=== PATIENT | female | born 1935 | race American Indian/Alaskan Native ===

== ENCOUNTER 2017-12-13 13:30 | Emergency (ER) | payer MEDICARE, OTHER, SELFPAY ==
[2017-12-13 13:48] VITALS: BP 189/87; PULSE 86; RESP 20; TEMP 37; O2SAT 98; BMI 22.1
--- NOTE | 2017-12-13 15:01 | ED_ITS ---
HPI - Abdominal Pain <ASTRID Merlos - Last Filed: 12/13/17 21:31> General Chief Complaint: Abdominal Pain Stated Complaint: ABNORMAL LAB RESULTS, DR SENT OVER Time Seen by Provider: 12/13/17 13:37 History of Present Illness HPI narrative: 82-year-old female here for complaint of having a periodic stools with blood over the past few weeks. She was seen in the emergency room and her primary care provider for the symptoms in the past couple of weeks. Patient reports that she had 2 episodes of diarrhea today that had blood in. He reports having generalized abdominal pain. She denies being on any blood thinners. No trauma to the area. No nausea or vomiting. She states that she was sent here by her primary care provider for further evaluation due to lab values. She states that it is bright red blood. She denies any other concerns or complaints at this time. She is ambulatory into the emergency room. Related Data Home Medications Medication Instructions Recorded Confirmed CALCIUM CARBONATE 500 mg PO Q DAY #0 02/24/11 12/13/17 MULTIVITAMIN (#MULTIPLE VITAMINS) 1 cap PO 4-6XD #0 02/24/11 12/13/17 ACETAMINOPHEN 650 mg PO Q4HP #0 08/17/12 12/13/17 hyoscyamine sulfate 0.125 mg PO/SL Q2H PRN 12/13/17 12/13/17 tramadol 1 tab PO TIDP PRN 12/13/17 12/13/17 Previous Rx's Medication Instructions Recorded lisinopril [Zestril] 40 mg PO QDAY #90 tab 04/17/17 lorazepam [Ativan] 0.5 mg PO SEE INSTRUCTIONS #90 tab 07/05/17 triamcinolone acetonide 0 gm TOPICAL SEE INSTRUCTIONS #80 11/13/17 gm chlordiazepoxide-clidinium 5 1 cap PO QDAY #30 cap 12/05/17 mg-2.5 mg capsule Allergies Allergy/AdvReac Type Severity Reaction Status Date / Time levofloxacin [From LEVAQUIN] AdvReac Unknown dizziness, Verified 12/13/17 13:52 not sure if related or not...08/30/16 Review of Systems <ASTRID Merlos - Last Filed: 12/13/17 21:31> Constitutional Denies chills, Denies fever(s), Denies lethargy and Denies weakness Eyes Denies change in vision, Denies eye discharge, Denies irritation and Denies loss of vision Cardiovascular Denies chest pain, Denies irregular heart rhythm, Denies lightheadedness, Denies palpitations, Denies dyspnea, Denies dyspnea on exertion and Denies orthopnea Respiratory Denies cough, Denies dyspnea, Denies dyspnea on exertion and Denies wheezing Gastrointestinal Gastrointestinal: Reports abdominal pain Comments: Blood in stool Genitourinary Denies hematuria, Denies flank pain, Denies urinary incontinence and Denies urinary urgency Integumentary/Breasts Denies pruritus, Denies erythema, Denies rash and Denies wounds Neurologic Denies confusion, Denies loss of vision and Denies weakness Psychiatric Denies anxiety, Denies confusion, Denies depression, Denies homicidal ideation and Denies suicidal ideation Endocrine Denies palpitations Allergic/Immunologic Denies wheezing Exam <ASTRID Merlos - Last Filed: 12/13/17 21:31> Initial Vital Signs Initial Vital Signs: Vital Signs Temperature 98.6 F 12/13/17 13:48 Pulse Rate 86 12/13/17 13:48 Respiratory Rate 20 12/13/17 13:48 Blood Pressure 189/87 H 12/13/17 13:48 Pulse Oximetry 98 12/13/17 13:48 Const General: cooperative and well developed Nutritional Appearance: well nourished Orientation: alert, awake, oriented x3 and not confused [facility] Mouth: oral mucosae normal, oropharynx normal and moist mucous membranes Eyes Conjunctivae: conjunctivae normal Sclera: sclerae normal Pupils: PERRL EOM: EOM intact bilaterally Resp Effort & Inspection: normal respiratory effort, able to speak in complete sentences, no respiratory distress and no use of accessory muscles Auscultation: clear to auscultation bilaterally, no rales, no rhonchi and no wheezes Cardio Rate: regular rate Rhythm: regular rhythm Heart Sounds: no click, no gallops, no murmurs and no rubs GI Inspection: non-distended Palpation: soft, no hepatosplenomegaly, No guarding, No pulsatile mass and No tender Auscultation: normal bowel sounds Other: Generalized tenderness on palpation. No pain and point tenderness. Rectal exam was unremarkable. No hemorrhoids seen. Negative Hemoccult <Jennie Saxena MD - Last Filed: 12/14/17 07:34> Initial Vital Signs Initial Vital Signs: Vital Signs Temperature 98.6 F 12/13/17 13:48 Pulse Rate 86 12/13/17 13:48 Respiratory Rate 20 12/13/17 13:48 Blood Pressure 189/87 H 12/13/17 13:48 Pulse Oximetry 98 12/13/17 13:48 Course <ASTRID Merlos - Last Filed: 12/13/17 21:31> Orders Ordered: ED Orders 12/13/17 15:01 CT abdomen pelvis w con Stat 12/13/17 15:10 Complete Blood Count AUTO DIFF Stat Comprehensive Metabolic Panel Stat Lipase Stat Prothrombin Time INR Stat Vital Signs - 8 hr 12/13/17 13:48 12/13/17 16:40 12/13/17 16:50 Temperature 98.6 F Pulse Rate 86 81 74 Respiratory Rate 20 18 12 Blood Pressure 189/87 H Blood Pressure [Right Arm] 179/86 H 163/95 H Pulse Oximetry 98 100 100 <Jennie Saxena MD - Last Filed: 12/14/17 07:34> Orders Ordered: ED Orders 12/13/17 15:01 CT abdomen pelvis w con Stat 12/13/17 15:10 Complete Blood Count AUTO DIFF Stat Comprehensive Metabolic Panel Stat Lipase Stat Prothrombin Time INR Stat Vital Signs - 8 hr 12/13/17 13:48 12/13/17 16:40 12/13/17 16:50 Temperature 98.6 F Pulse Rate 86 81 74 Respiratory Rate 20 18 12 Blood Pressure 189/87 H Blood Pressure [Right Arm] 179/86 H 163/95 H Pulse Oximetry 98 100 100 MDM - Abdominal Pain <ASTRID Merlos - Last Filed: 12/13/17 21:31> Lab Data Result diagrams: 12/13/17 15:10 12/13/17 15:10 Lab Results 12/13/17 12/13/17 12/13/17 Range/Units 15:10 15:10 15:10 WBC 3.9 L (4.5-11.0) X10^3/uL RBC 4.98 (4.0-5.2) X10^6/uL Hgb 14.5 (12.0-16.0) g/dL Hct 42.5 (36-46) % MCV 85.3 (80-100) fL MCH 29.1 (26-34) PG MCHC 34.1 (30-36) % RDW 14.1 (11.6-14.8) % Plt Count 244 (150-400) X10^3/uL Neut % (Auto) 64.8 (50-75) % Lymph % (Auto) 16.8 L (25-40) % Dane % (Auto) 15.8 H (3-14) % Eos % (Auto) 0.8 L (2-4) % Baso % (Auto) 1.8 (0-2) % Neut # (Auto) 2500 L (7063-0788) /uL PT 11.1 (10.1-12.7) SECONDS INR 1.0 (0.9-1.3) Sodium 133 L (137-145) mmol/L Potassium 3.9 (3.4-5.1) mmol/L Chloride 96.0 L (98-107) mmol/L Carbon Dioxide 24.0 (22-32) mmol/L BUN 9.0 (7-17) mg/dL Creatinine 0.50 L (0.52-1.04) mg/dL Estimated GFR > 60.0 (>60) mL/min BUN/Creatinine Ratio 18.0 (6-22) Glucose 100 (80-110) mg/dL Calcium 9.6 (8.4-10.2) mg/dL Total Bilirubin 0.7 (0.2-1.3) mg/dL AST 21 (14-36) IU/L ALT 14 (9-52) IU/L Alkaline Phosphatase 92 (38-126) U/L Total Protein 8.2 (6.3-8.2) g/dL Albumin 4.5 (3.5-5.0) g/dL Globulin 3.7 (1.7-4.1) g/dL Albumin/Globulin Ratio 1.2 (1.0-2.8) Lipase 132 (23-300) U/L Imaging Data CT scan - abdomen: Radiologist's impression: PROCEDURE: CT ABDOMEN PELVIS W CON INDICATIONS: Rectal bleeding and generalized abdominal pain TECHNIQUE: After the administration of intravenous contrast, 5 mm thick sections acquired from the diaphragm to the symphysis. 5 mm coronal and sagittal reformats were acquired. For radiation dose reduction, the following was used: automated exposure control, adjustment of mA and/or kV according to patient size. COMPARISON: [facility], CT, ABDOMEN/PELVIS WITH CONTRAST, 05/08/2016, 9: 32. FINDINGS: Image quality: Excellent. ABDOMEN: Lung bases: Lung bases are clear. Heart size is normal. Solid organs: Liver is normal in size and enhancement. Gallbladder appears normal, partially contracted. Biliary system is non dilated. Pancreas enhances normally. Spleen is normal in size and enhancement. No adrenal nodules. Kidneys demonstrate normal size and enhancement, without hydronephrosis. Peritoneum and bowel: Bowel loops demonstrate normal wall thickness and caliber. No free fluid or air. Nodes and vessels: No retroperitoneal or mesenteric adenopathy by size criteria. Aorta and inferior vena cava are normal in size. Miscellaneous: No ventral hernias. PELVIS: Genitourinary: Bladder wall thickness is normal. Calcified uterine fibroids are noted within the relatively atrophic uterus. No adnexal cystic or solid mass is identified. Miscellaneous: No inguinal hernias or adenopathy. There is sigmoid and descending colon diverticulosis but no acute diverticulitis is found. Bones: No suspicious bony lesions. No vertebral body compression fractures. IMPRESSION: Source of rectal bleeding is not found. Diverticulosis involves the descending and sigmoid colon without acute diverticulitis. Several scattered uterine fibroids, partially calcified, are incidentally noted. No adenopathy or inflammatory changes are seen. Dictated by: Del Coyne M.D. on 12/13/2017 at 15:54 Approved by: Del Coyne M.D. on 12/13/2017 at 15:58 MDM Narrative Medical decision making narrative: CBC Chem panel lipase were obtained were unremarkable. PT INR was normal. POC urine dip was negative. CT the abdomen was obtained was negative for any acute findings. Rectal exam or was negative for Hemoccult blood no lex blood was seen. I discussed case with Dr. Major who was on-call for Dr. Gomez and their office will follow up with her in the next few days with discussion of colonoscopy for further evaluation. Patient's blood pressure was elevated today she was reminded to take her blood pressure medicine as prescribed. Patient call the office tomorrow to schedule follow-up appointment. For any worsening symptoms return to the emergency room. <Jennie Saxena MD - Last Filed: 12/14/17 07:34> Lab Data Lab Results 12/13/17 12/13/1712/13/18 Range/Units 15:10 15:10 15:10 WBC 3.9 L (4.5-11.0) X10^3/uL RBC 4.98 (4.0-5.2) X10^6/uL Hgb 14.5 (12.0-16.0) g/dL Hct 42.5 (36-46) % MCV 85.3 (80-100) fL MCH 29.1 (26-34) PG MCHC 34.1 (30-36) % RDW 14.1 (11.6-14.8) % Plt Count 244 (150-400) X10^3/uL Neut % (Auto) 64.8 (50-75) % Lymph % (Auto) 16.8 L (25-40) % Dane % (Auto) 15.8 H (3-14) % Eos % (Auto) 0.8 L (2-4) % Baso % (Auto) 1.8 (0-2) % Neut # (Auto) 2500 L (0204-7190) /uL PT 11.1 (10.1-12.7) SECONDS INR 1.0 (0.9-1.3) Sodium 133 L (137-145) mmol/L Potassium 3.9 (3.4-5.1) mmol/L Chloride 96.0 L (98-107) mmol/L Carbon Dioxide 24.0 (22-32) mmol/L BUN 9.0 (7-17) mg/dL Creatinine 0.50 L (0.52-1.04) mg/dL Estimated GFR > 60.0 (>60) mL/min BUN/Creatinine Ratio 18.0 (6-22) Glucose 100 (80-110) mg/dL Calcium 9.6 (8.4-10.2) mg/dL Total Bilirubin 0.7 (0.2-1.3) mg/dL AST 21 (14-36) IU/L ALT 14 (9-52) IU/L Alkaline Phosphatase 92 (38-126) U/L Total Protein 8.2 (6.3-8.2) g/dL Albumin 4.5 (3.5-5.0) g/dL Globulin 3.7 (1.7-4.1) g/dL Albumin/Globulin Ratio 1.2 (1.0-2.8) Lipase 132 (23-300) U/L Discharge Plan Departure Patient Disposition: Home, Self-Care Clinical Impression: Blood in stool Discharge Date/Time: 12/13/17 17:09 Interventions: ED Discharge Assessment Last Done: 12/13/17 17:08 Instructions: DI for Rectal Bleeding Activity Restrictions/Additional Instructions: Laboratory results today were unremarkable. CT of the abdomen was obtained and was negative for any acute findings. Blood pressure was elevated today make sure you are taking your blood pressure medications as prescribed. Call Dr. Gomez is office tomorrow to schedule follow-up appointment here in the next few days for re-evaluation. Recommend obtaining colonoscopy for further evaluation patient of with rectal bleeding. For any worsening symptoms return to the emergency room. Prescriptions: No Action CALCIUM CARBONATE 500 mg PO Q DAY Qty: 0 RF: 0 MULTIVITAMIN (#MULTIPLE VITAMINS) bottle 1 cap PO 4-6XD Qty: 0 RF: 0 ACETAMINOPHEN 650 mg PO Q4HP Qty: 0 RF: 0 lisinopril [Zestril] 40 MG tablet 40 mg PO QDAY Qty: 90 RF: 3 lorazepam [Ativan] 0.5 MG tablet 0.5 mg PO SEE INSTRUCTIONS Qty: 90 RF: 0 triamcinolone acetonide 0.1 % cream Topical SEE INSTRUCTIONS Qty: 80 RF: 0 chlordiazepoxide-clidinium [Librax (with clidinium)] 5-2.5 mg capsule 1 cap PO QDAY Qty: 30 RF: 3 hyoscyamine sulfate 0.125 MG tablet 0.125 mg PO/SL Q2H PRN (Reason: Abdominal Discomfort) RF: 0 tramadol 50 MG tablet 1 tab PO TIDP PRN (Reason: Pain, Severe) RF: 0 Referrals: Brain Gomez MD [Primary Care Provider] - <Jennie Saxena MD - Last Filed: 12/14/17 07:34> Sign Out Provider Sign Out Attestation: I attest to the documentation recorded. I was the attending of record and available in the ED throught course. I agree with assessment and plan.
[2017-12-13 15:18] LABS: Add Manual Diff / Slide Review NO; Basophils Percent Auto 1.8 % (0-2); Eosinophils Percent Auto 0.8 % (2-4); Hematocrit 42.5 % (36-46); Hemoglobin 14.5 g/dL (12.0-16.0); Lymphocytes Percent Auto 16.8 % (25-40); Mean Corpuscular HGB Conc 34.1 % (30-36); Mean Corpuscular Hemoglobin 29.1 PG (26-34); Mean Corpuscular Volume 85.3 fL (80-100); Monocytes Percent Auto 15.8 % (3-14); Neutrophils Absolute Auto 2500 /uL (3000-5900); Neutrophils Percent Auto 64.8 % (50-75); Platelet Count 244 X10^3/uL (150-400); Red Blood Cell Count 4.98 X10^6/uL (4.0-5.2); Red Cell Distribution Width 14.1 % (11.6-14.8); White Blood Cell Count 3.9 X10^3/uL (4.5-11.0)
[2017-12-13 15:24] LABS: Prothrombin Time 11.1 SECONDS (10.1-12.7)
[2017-12-13 15:31] LABS: Alanine Aminotransferase 14 IU/L (9-52); Albumin 4.5 g/dL (3.5-5.0); Albumin Globulin Ratio 1.2 (1.0-2.8); Alkaline Phosphatase 92 U/L (38-126); Aspartate Aminotransferase 21 IU/L (14-36); Bilirubin Total 0.7 mg/dL (0.2-1.3); Calcium 9.6 mg/dL (8.4-10.2); Estimated Glomerular Filt Rate > 60.0 mL/min (>60); Globulin 3.7 g/dL (1.7-4.1); Glucose 100 mg/dL (80-110); HEMOLYSIS < 15 (0-50); Lipase 132 U/L (23-300); Potassium 3.9 mmol/L (3.4-5.1); Sodium 133 mmol/L (137-145); Total Protein 8.2 g/dL (6.3-8.2)
[2017-12-13 16:40] VITALS: BP 179/86; PULSE 81; RESP 18; O2SAT 100
[2017-12-13 16:50] VITALS: BP 163/95; PULSE 74; RESP 12; O2SAT 100
== END 2017-12-13 17:09 | disposition home or self-care (01) ==
PROVIDERS: Emergency Provider Nurse Practitioner Family; PCP Internal Medicine
DX: K92.1 Melena (principal)
CPT/HCPCS: 36591; 74177; 80053; 81003; 83690; 85025; 85610; 99283; 99284; Q9967

== ENCOUNTER → 2017-12-19 09:15 | Outpatient (CLI) | payer MEDICARE, OTHER, SELFPAY ==
[2017-12-19 10:00] LABS: Hematocrit 41.8 % (36-46); Hemoglobin 14.3 g/dL (12.0-16.0)
== END ==
PROVIDERS: PCP Internal Medicine; Visit Provider Internal Medicine
DX: K92.1 Melena (principal)
CPT/HCPCS: 36415; 85014; 85018

== ENCOUNTER 2017-12-28 11:34 | Day surgery (SDC) | payer MEDICARE, OTHER, SELFPAY ==
[2017-12-28] VITALS (7 sets, daily range): BP systolic 125–167; BP diastolic 73–88; PULSE 76–81; RESP 15–20; TEMP 36.2–37.2; O2SAT 97–100; BMI 21.7
--- NOTE | 2017-12-28 | PATH_ITS ---
[facility] Accession Number: [id number] . 01 Material submitted: . CECAL POLYP . 02 Diagnosis: Cecal Polyp: Tubular adenoma. MRV/12/29/2017 . 02 Electronically signed: . Cuba Reyes MD, PhD, Pathologist NPI- [id number] . 01 Gross description: . Received in one formalin-filled container, labeled with the patient's name, labeled cecal polyp, are two 0.2-0.3 cm portions of tissue, entirely submitted in one cassette. ([id number]) /FRR . 02 Pathologist provided ICD-10: D12.0 . 02 CPT . 502976 Performed at: 01 [facility] [place] [address] [id number] MD Pawel Sifuentes MD Phone: [phone] Performed at: 02 [facility] [place] [address] [place], [place] [id number] MD Иван Kruger MD Phone: [phone]
[2017-12-28] MEDS: SODIUM CHLORIDE 0.9% 1,000 ML 200 ML IV (12:40)
--- NOTE | 2017-12-28 12:45 | P.HP_ITS ---
History of Present Illness Date Patient Seen: 12/28/17 Time Patient Seen: 12:40 Chief complaint: colonoscopy [id number] Narrative: 82-year-old female who presented with recent history of bright red blood per rectum, especially with bowel function. She has been having some mild pelvic pain prior to bowel function which is subsequently relieved when she does move her bowels. She reports no change in bowel habits otherwise. No significant constipation or diarrhea. No melena. She has not had similar symptoms in the past. Denies any nausea or vomiting. No abdominal pain elsewhere. No recent change in appetite or loss of weight. Denies fever or chills. Patient History Medical History Anxiety (Acute) Hypertension (Acute) Surgical History H/O colonoscopy (Resolved) History of appendectomy (Resolved) History of foot surgery (Resolved) Family & Social History Family History: Reviewed 12/28/17 by Juan Nunn MD Social History: household members friend(s) Tobacco & Substance use: Smoking Status Never smoker alcohol intake frequency 0-2 drinks per day Substance Use Type does not use Meds Home Medications Medication Instructions Recorded Confirmed Type CALCIUM CARBONATE 500 mg PO Q DAY #0 02/24/11 12/19/17 History MULTIVITAMIN (#MULTIPLE VITAMINS) 1 cap PO 4-6XD #0 02/24/11 12/19/17 History ACETAMINOPHEN 650 mg PO Q4HP #0 08/17/12 12/19/17 History lisinopril [Zestril] 40 mg PO QDAY #90 tab 04/17/17 12/19/17 Rx lorazepam [Ativan] 0.5 mg PO SEE INSTRUCTIONS #90 tab 07/05/17 12/19/17 Rx triamcinolone acetonide 0 gm TOPICAL SEE INSTRUCTIONS #80 11/13/17 12/19/17 Rx gm chlordiazepoxide-clidinium 5 1 cap PO QDAY #30 cap 12/05/17 12/19/17 Rx mg-2.5 mg capsule hyoscyamine sulfate 0.125 mg PO/SL Q2H PRN 12/13/17 12/19/17 History Allergies Allergy/AdvReac Type Severity Reaction Status Date / Time levofloxacin [From LEVAQUIN] AdvReac Unknown dizziness, Verified 12/19/17 08:54 not sure if related or not...08/30/16 Review of Systems Review of Systems All systems reviewed & are unremarkable except as noted in HPI and below Exam Vital Signs (past 8 hours): Vital Signs - 8 hr 3 12/28/17 12:21 Temperature 99.0 F Pulse Rate 80 Respiratory Rate 20 Blood Pressure 167/88 H Pulse Oximetry 100 Pulse Oximetry 100 Oxygen Delivery Method Room Air Narrative Exam Narrative: Thin elderly female lying comfortably in the gurney in no acute distress. Alert oriented x3. Sclera nonicteric Regular rate and rhythm Abdomen soft, nondistended, nontender, no masses Extremities show no clubbing, cyanosis, or edema Assessment & Plan (1) Rectal bleeding: Problem details: 82-year-old female with recent rectal bleeding of unclear etiology. Her last colonoscopy was 12 years ago. She is recommended to undergo colorectal examination with colonoscopy currently. Technical details of the procedure were discussed. Risks, benefits, alternatives were explained. Risks including but not limited to sedation, aspiration, bleeding, pain, missed lesion, incomplete examination, need for further radiographic studies, colonic perforation, need for major abdominal surgery, and all attendant risks of major surgery were discussed at length. All questions were answered to her satisfaction, and she voiced understanding. Consent was placed on the chart. We will proceed as above. Current visit: Yes Status: Acute
--- NOTE | 2017-12-28 12:45 | PM.PREOP ---
Pre-operative Note Interval Note Pre-op Check: History & Physical Reviewed by Physician, Exam Performed and History & Physical exam performed today H&P completed within 30 days and has changed as indicated here:: History physical examination performed today. Patient will proceed with colonoscopy as planned. ASA Class (for procedural sedation): II
[2017-12-28] MEDS: fentaNYL 250 MCG/5 ML INJ IV (13:17)
--- NOTE | 2017-12-28 13:17 | PM.OP.ENDO ---
Operative Date/Time/Diagnoses - Date of procedure: 12/28/17 Time of procedure: 13:17 Pre-op diagnosis: Rectal bleeding Post-op diagnosis: same Procedure & Clinicians Study performed: 1. Colonoscopy with cold forceps polypectomy 2. Sedation per surgeon Same procedure as scheduled: Yes Indications: 82-year-old female recently presenting with bright red blood per rectum after bowel function. She was recommended to undergo colonoscopy for her symptoms. Surgeon: Juan Nunn Procedure Notes SCOAP/Timeout: Yes Procedure in detail: After obtaining informed consent, the patient was brought to the GI suite and placed in the left lateral decubitus position on the examination table. After placement of appropriate monitors, the patient was given incremental doses of Versed and Fentanyl until an appropriate level of sedation was achieved. A time out was held per SCOAP protocol. A digital rectal examination was performed and did not reveal any masses or obstructing lesions. The colonoscope was gently passed into the patient's anus and the entire colon navigated to the level of the cecum with minimal difficulty. Once in the cecum, the scope was withdrawn being sure to go before and beyond all mucosal folds and prominences and get an excellent examination. The findings are noted above. At the level of the rectal vault, the scope was retroflexed and the internal anal canal was examined. The scope was straightened and air aspirated from the colon. The instrument was removed from the patient's body and the procedure was concluded. The patient was allowed to awaken from sedation without difficulty and taken to the post-anesthesia care unit in good condition. Scope withdrawal time: 7:45 min Sedation minutes: 24 Findings: diverticulosis (Throughout the entire colon) and polyp (Cecum) Specimen(s): other (Cecal polyp) Complications: none Recommendations: High fiber diet, Will call with biopsy results and Other recommendation (No further colonoscopy is indicated) Plan for aftercare: 1. Bleeding likely secondary to diverticula but no active bleeding currently 2. No significant hemorrhoid disease so no treatment for such is indicated 3. Small benign polyp removed which does not warrant follow-up endoscopy 4. No further colonoscopies are indicated in the absence of any new significant symptoms. 5. Discharged home today and follow up with primary physician as scheduled Follow up: as needed Disposition: PACU
[2017-12-28] MEDS: MIDAZOLAM 5 MG/5 ML VIAL IV (13:18)
== END 2017-12-28 14:16 | disposition home or self-care (01) ==
PROVIDERS: PCP Internal Medicine; Visit Provider Surgery
PROC: 0DJD8ZZ Inspection of Lower Intestinal Tract, Via Natural or Artificial Opening Endoscopic (ICD-10-PCS; CPT 45378; principal; 2017-12-28 13:00)
DX: K92.1 Melena (principal); K62.5 Hemorrhage of anus and rectum; K57.30 Diverticulosis of large intestine without perforation or abscess without bleeding; D12.0 Benign neoplasm of cecum; I10 Essential (primary) hypertension; F41.9 Anxiety disorder, unspecified
CPT/HCPCS: 45380; 88305; 99152; 99153; J2250; J3010

== ENCOUNTER 2018-03-10 14:30 | Emergency (ER) | payer MEDICARE, OTHER, SELFPAY ==
[2018-03-10 14:50] VITALS: BP 167/87; PULSE 81; RESP 16; TEMP 36.5; O2SAT 99; BMI 22.1
--- NOTE | 2018-03-10 16:35 | DI.RAD.S_ITS ---
PROCEDURE: XR KUB INDICATIONS: constipated? TECHNIQUE: One view of the abdomen acquired. COMPARISON: [facility], CT, CT ABDOMEN PELVIS W CON, 12/13/2017, 15:33. FINDINGS: Surgical changes and devices: None. Bowel: Bowel gas pattern is normal. Soft tissues: No suspicious abdominal calcifications. Visualized solid organ contours appear normal in size. Bones: No suspicious bony lesions. IMPRESSION: No acute process. Dictated by: Anthony Altman M.D. on 03/10/2018 at 16:56 Approved by: Anthony Altman M.D. on 03/10/2018 at 16:56
[2018-03-10 17:24] LABS: Hematocrit 39.2 % (36-46); Hemoglobin 13.3 g/dL (12.0-16.0); Mean Corpuscular Hemoglobin 28.9 PG (26-34); Mean Corpuscular Volume 85.2 fL (80-100); Platelet Count 288 X10^3/uL (150-400); Red Cell Distribution Width 14.4 % (11.6-14.8); White Blood Cell Count 5.2 X10^3/uL (4.5-11.0)
[2018-03-10 17:45] LABS: INR 1.1 (0.9-1.3); Prothrombin Time 11.5 SECONDS (10.1-12.7)
[2018-03-10 17:47] LABS: PTT Partial Thromboplastin Tim 31 SECONDS (26.4-36.2)
[2018-03-10 17:48] LABS: Lipase 77 U/L (23-300)
[2018-03-10 17:49] LABS: Alanine Aminotransferase 15 IU/L (9-52); Albumin 4.3 g/dL (3.5-5.0); Albumin Globulin Ratio 1.2 (1.0-2.8); Alkaline Phosphatase 81 U/L (38-126); Aspartate Aminotransferase 23 IU/L (14-36); Bilirubin Total 0.7 mg/dL (0.2-1.3); Blood Urea Nitrogen 8 mg/dL (7-17); Calcium 9.7 mg/dL (8.4-10.2); Carbon Dioxide 26 mmol/L (22-32); Chloride 94 mmol/L (98-107); Estimated Glomerular Filt Rate > 60.0 mL/min (>60); Globulin 3.7 g/dL (1.7-4.1); Glucose 97 mg/dL (80-110); HEMOLYSIS 30 (0-50); Potassium 4.4 mmol/L (3.4-5.1); Sodium 130 mmol/L (137-145)
--- NOTE | 2018-03-10 17:56 | ED.ABDPAIN ---
HPI - Abdominal Pain General Chief Complaint: Abdominal Pain Stated Complaint: BAD CRAMPS STOMACH AREA History of Present Illness HPI narrative: HPI 82-year-old female with IBS and diverticulitis presents for evaluation of 3 days of crampy abdominal discomfort and minimal stooling that is generally consistent with her long-standing pattern of IBS but refractory to her hyoscyamine. Patient denies dysuria, continues to pass flatus, had one bowel movement while in the emergency department, no significant improvement in symptoms. M/S/F/SocHx notable for: please see HPI; remainder reviewed with patient and in chart. ROS: Negative constitutional, eye, cardiovascular, pulmonary, GI, , MSK, skin, neurologic, psychiatric, endocrine unless noted in the HPI. Exam Gen: Pleasant, non-toxic appearing, resting comfortably. HEENT: NC, AT, PEERL, EOMI. Resp: Clear to auscultation bilaterally, normal work of breathing, no accessory muscle usage. Card: Regular rate and rhythm with no murmurs, rubs, or gallops, extremities warm and well perfused. GI: mild to moderate left lower quadrant tenderness to palpation, remainder of abdomen nontender to palpation throughout all quadrants, no focal tenderness at McBurney's point, negative Dueñas's sign, non-distended, no rebound or guarding. : No suprapubic tenderness to palpation. MSK: No visible deformities, strength and tone without visually appreciable deficit. Skin: Normal color with no visible lesions. Neuro: AO x 3, no facial asymmetry, vision and hearing WNL. Psych: Mood and affect appropriate. Labs / Imaging: WBC 5.2, hemoglobin 13.3 sodium 130, potassium 4.4, creatinine 0.50, total bilirubin 0.7, AST 23, ALT 15, ALP 81, lipase 77 KUB: no acute process. CT abdomen pelvis: pending UA - pending. MDM Previous chart, nursing note, labs, imaging, and vitals reviewed. A: 82-year-old female with IBS and diverticulitis presents for evaluation of 3 days of crampy abdominal discomfort and minimal stooling that is generally consistent with her long-standing pattern of IBS but refractory to her hyoscyamine. DDx: constipation, obstipation, IBS, diverticulitis, ureterolithiasis, pyelonephritis. Evaluation: KUB, CBC, CMP, lipase without clear pathology, CT abdomen and pelvis ordered given the left lower quadrant tenderness to palpation. UA pending. Patient care transferred to Dr. Christie pending completion of care. Impression: abdominal pain/cramping (please reference below for remainder of encounter information) Related Data Home Medications Medication Instructions Recorded Confirmed CALCIUM CARBONATE 500 mg PO Q DAY #0 02/24/11 02/02/18 MULTIVITAMIN (#MULTIPLE VITAMINS) 1 cap PO 4-6XD #0 02/24/11 02/02/18 ACETAMINOPHEN 650 mg PO Q4HP #0 08/17/12 02/02/18 hyoscyamine sulfate 0.125 mg PO/SL Q2H PRN 12/13/17 02/02/18 magnesium hydroxide 400 mg/5 mL 30 ml PO BEDTIME PRN 01/01/18 02/02/18 oral suspension Previous Rx's Medication Instructions Recorded lisinopril [Zestril] 40 mg PO QDAY #90 tab 04/17/17 triamcinolone acetonide 0 gm TOPICAL SEE INSTRUCTIONS #80 11/13/17 gm chlordiazepoxide-clidinium 5 1 cap PO QDAY #30 cap 12/05/17 mg-2.5 mg capsule lorazepam 0.5 mg tablet 0.5 mg PO .COMPLEX #90 tab 02/21/18 Allergies Allergy/AdvReac Type Severity Reaction Status Date / Time levofloxacin [From LEVAQUIN] AdvReac Unknown dizziness, Verified 02/02/18 13:29 not sure if related or not...08/30/16 [facility] Social History marital status: number of children: 1 () household members: friend(s) lives independently: Yes caregiver/support person: Yes (Step daughter) housing: apartment (4 plex) pets and animals: No education level: high school occupational status: other (Retired) 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 hortencia/congregational: Yazidism leisure activities: music, reading and other (crossword puzzels.) Smoking Status: Never smoker Tobacco: How many years used: 0 alcohol intake: current (1 glass of wine during a day. Occasional drinking.) substance use type: does not use Exam Initial Vital Signs Initial Vital Signs: Vital Signs Temperature 97.7 F 03/10/18 14:50 Pulse Rate 81 03/10/18 14:50 Respiratory Rate 16 03/10/18 14:50 Blood Pressure 167/87 H 03/10/18 14:50 Pulse Oximetry 99 03/10/18 14:50 Course Orders Ordered: ED Orders 03/10/18 14:10 CBC manual diff [Complete Blood Count MAN DIFF] Stat Comprehensive Metabolic Panel Stat Lipase Stat Partial Thromboplastin Time Stat Prothrombin Time INR Stat 03/10/18 14:55 Urinalysis and Microscopic Stat 03/10/18 16:35 XR KUB Stat EKG-12 Lead Stat 03/10/18 17:52 CT abdomen pelvis w con Stat 03/10/18 17:54 Urinalysis and Microscopic Stat Vital Signs - 8 hr 03/10/18 14:50 Temperature 97.7 F Pulse Rate 81 Respiratory Rate 16 Blood Pressure 167/87 H Pulse Oximetry 99 MDM - Abdominal Pain Lab Data Result diagrams: 03/10/18 14:10 03/10/18 14:10 Lab Results 03/10/18 03/10/18 03/10/18 Range/Units 14:10 14:10 14:10 WBC 5.2 (4.5-11.0) X10^3/uL RBC 4.60 (4.0-5.2) X10^6/uL Hgb 13.3 (12.0-16.0) g/dL Hct 39.2 (36-46) % MCV 85.2 (80-100) fL MCH 28.9 (26-34) PG MCHC 34.0 (30-36) % RDW 14.4 (11.6-14.8) % Plt Count 288 (150-400) X10^3/uL PT 11.5 (10.1-12.7) SECONDS INR 1.1 (0.9-1.3) APTT 31 (26.4-36.2) SECONDS Sodium 130 L (137-145) mmol/L Potassium 4.4 (3.4-5.1) mmol/L Chloride 94 L (98-107) mmol/L Carbon Dioxide 26 (22-32) mmol/L BUN 8 (7-17) mg/dL Creatinine 0.50 L (0.52-1.04) mg/dL Estimated GFR > 60.0 (>60) mL/min BUN/Creatinine Ratio 16.0 (6-22) Glucose 97 (80-110) mg/dL Calcium 9.7 (8.4-10.2) mg/dL Total Bilirubin 0.7 (0.2-1.3) mg/dL AST 23 (14-36) IU/L ALT 15 (9-52) IU/L Alkaline Phosphatase 81 (38-126) U/L Total Protein 8.0 (6.3-8.2) g/dL Albumin 4.3 (3.5-5.0) g/dL Globulin 3.7 (1.7-4.1) g/dL Albumin/Globulin Ratio 1.2 (1.0-2.8) Lipase (23-300) U/L 03/10/18 Range/Units 14:10 WBC (4.5-11.0) X10^3/uL RBC (4.0-5.2) X10^6/uL Hgb (12.0-16.0) g/dL Hct (36-46) % MCV (80-100) fL MCH (26-34) PG MCHC (30-36) % RDW (11.6-14.8) % Plt Count (150-400) X10^3/uL PT (10.1-12.7) SECONDS INR (0.9-1.3) APTT (26.4-36.2) SECONDS Sodium (137-145) mmol/L Potassium (3.4-5.1) mmol/L Chloride (98-107) mmol/L Carbon Dioxide (22-32) mmol/L BUN (7-17) mg/dL Creatinine (0.52-1.04) mg/dL Estimated GFR (>60) mL/min BUN/Creatinine Ratio (6-22) Glucose (80-110) mg/dL Calcium (8.4-10.2) mg/dL Total Bilirubin (0.2-1.3) mg/dL AST (14-36) IU/L ALT (9-52) IU/L Alkaline Phosphatase (38-126) U/L Total Protein (6.3-8.2) g/dL Albumin (3.5-5.0) g/dL Globulin (1.7-4.1) g/dL Albumin/Globulin Ratio (1.0-2.8) Lipase 77 (23-300) U/L Discharge Plan Departure Prescriptions: No Action CALCIUM CARBONATE 500 mg PO Q DAY Qty: 0 RF: 0 MULTIVITAMIN (#MULTIPLE VITAMINS) bottle 1 cap PO 4-6XD Qty: 0 RF: 0 ACETAMINOPHEN 650 mg PO Q4HP Qty: 0 RF: 0 lisinopril [Zestril] 40 MG tablet 40 mg PO QDAY Qty: 90 RF: 3 triamcinolone acetonide 0.1 % cream Topical SEE INSTRUCTIONS Qty: 80 RF: 0 lorazepam [Ativan] 0.5 mg tablet 0.5 mg PO .COMPLEX Qty: 90 RF: 0 magnesium hydroxide [Milk of Magnesia] 400 mg/5 mL suspension 30 ml PO BEDTIME PRNRF: 0 chlordiazepoxide-clidinium [Librax (with clidinium)] 5-2.5 mg capsule 1 cap PO QDAY Qty: 30 RF: 3 hyoscyamine sulfate 0.125 MG tablet 0.125 mg PO/SL Q2H PRN (Reason: Abdominal Discomfort) RF: 0
[2018-03-10] MEDS: AMOXICILLIN/CLAV 875/125 MG 1 TAB PO (19:15)
[2018-03-10 19:30] VITALS: BP 195/94; PULSE 82; RESP 14; O2SAT 98
--- NOTE | 2018-03-10 19:34 | PC.NURSE ---
MD aware of patients blood pressure. No new orders at this time. Patient reports that it is not unusual for her to have high blood pressure when taken at the doctors secondary to her anxiety. Patient is asymptomatic.
== END 2018-03-10 19:39 | disposition home or self-care (01) ==
PROVIDERS: Emergency Medicine; Emergency Provider Emergency Medicine; PCP Internal Medicine
DX: R10.9 Unspecified abdominal pain (principal)
CPT/HCPCS: 36591; 74018; 80053; 83690; 85025; 85610; 85730; 99283; 99285

== ENCOUNTER 2018-03-13 03:57 | Emergency (ER) | payer MEDICARE, OTHER, SELFPAY ==
[2018-03-13 04:03] VITALS: BP 178/85; PULSE 92; RESP 16; TEMP 36.9; O2SAT 100; BMI 21.4
--- NOTE | 2018-03-13 04:10 | DI.RAD.S_ITS ---
PROCEDURE: XR ACUTE ABDOMEN SERIES INDICATIONS: Abdominal pain TECHNIQUE: One view chest and two views of the abdomen were acquired. COMPARISON: [facility], CT, ABDOMEN/PELVIS WITH CONTRAST, 05/08/2016, 9:32. [facility], [place], ABDOMEN COMPLETE, 02/08/2017, 8:41. [facility], CT, CT ABDOMEN PELVIS W CON, 12/13/2017, 15:33. FINDINGS: Surgical changes and devices: None. Chest: Lungs are clear. Heart size is normal. No pleural effusions. No pneumoperitoneum. Abdomen: Moderate amount of stool seen throughout the colon. No suspicious calcifications. Visualized solid organ contours appear normal. Bones: No suspicious bony lesions. IMPRESSION: 1. Moderate fecal loading throughout the colon. Please correlate with clinical data. 2. No evidence of obstruction. Dictated by: Pilar Grimes MD, PhD on 03/13/2018 at 9:13 Approved by: Pilar Grimes MD, PhD on 03/13/2018 at 9:14
[2018-03-13 04:45] LABS: Add Manual Diff / Slide Review NO; Basophils Percent Auto 0.8 % (0-2); Eosinophils Percent Auto 0.7 % (2-4); Hematocrit 39.7 % (36-46); Hemoglobin 13.4 g/dL (12.0-16.0); Lymphocytes Percent Auto 11.6 % (25-40); Mean Corpuscular HGB Conc 33.7 % (30-36); Mean Corpuscular Hemoglobin 29.2 PG (26-34); Mean Corpuscular Volume 86.6 fL (80-100); Monocytes Percent Auto 15.4 % (3-14); Neutrophils Absolute Auto 6200 /uL (3000-5900); Neutrophils Percent Auto 71.5 % (50-75); Platelet Count 280 X10^3/uL (150-400); Red Blood Cell Count 4.58 X10^6/uL (4.0-5.2); Red Cell Distribution Width 14.4 % (11.6-14.8); White Blood Cell Count 8.7 X10^3/uL (4.5-11.0)
[2018-03-13 04:52] LABS: BUN Creatinine Ratio 13.3 (6-22); Blood Urea Nitrogen 8 mg/dL (7-17); Calcium 9.9 mg/dL (8.4-10.2); Carbon Dioxide 27 mmol/L (22-32); Chloride 95 mmol/L (98-107); Estimated Glomerular Filt Rate > 60.0 mL/min (>60); Glucose 106 mg/dL (80-110); HEMOLYSIS < 15 (0-50); Sodium 132 mmol/L (137-145)
[2018-03-13 06:54] VITALS: BP 154/79; PULSE 90; RESP 18; TEMP 37.3; O2SAT 100
--- NOTE | 2018-03-13 09:29 | DI.CT.S_ITS ---
PROCEDURE: CT ABDOMEN PELVIS W CON INDICATIONS: severe bowel pain TECHNIQUE: After the administration of intravenous contrast, 5 mm thick sections acquired from the diaphragm to the symphysis. 5 mm coronal and sagittal reformats were acquired. For radiation dose reduction, the following was used: automated exposure control, adjustment of mA and/or kV according to patient size. COMPARISON: [facility], CT, CT ABDOMEN PELVIS W CON, 12/13/2017, 15:33. [facility], CT, ABDOMEN/PELVIS WITH CONTRAST, 05/08/2016, 9:32. FINDINGS: Image quality: Excellent. ABDOMEN: Lung bases: Lung bases are clear. Heart size is normal. Solid organs: Liver is normal in size and enhancement. Gallbladder appears normal. Biliary system is non dilated. Pancreas enhances normally. Spleen is normal in size and enhancement. No adrenal nodules. Kidneys demonstrate normal size and enhancement, without hydronephrosis. Peritoneum and bowel: Bowel loops demonstrate normal wall thickness and caliber. No free fluid or air. Nodes and vessels: No retroperitoneal or mesenteric adenopathy by size criteria. Aorta and inferior vena cava are normal in size. 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 Ischemic bowel is not identified, however. Miscellaneous: No ventral hernias. PELVIS: Genitourinary: Bladder wall thickness is normal. Calcified uterine fibroid at the uterine fundus. Miscellaneous: No inguinal hernias or adenopathy. There is extensive diverticulosis involving the sigmoid colon and distal descending colon, and at the middle third of the sigmoid colon area a small degree of mural thickening is present centered on series 2 image 50. This likely represents acute diverticulitis but no adjacent pericolonic abscess is found. Colonic neoplasm is a potential alternative cause. Bones: No suspicious bony lesions. No vertebral body compression fractures. IMPRESSION: 1. Extensive distal descending and sigmoid diverticulosis, suspect mild acute diverticulitis at the [id number] thirds of the sigmoid colon without peridiverticular abscess. 2. The area of sigmoid mural thickening discussed above conceivably could represent an early manifestation of neoplasm. Please correlate clinically. Followup by sigmoidoscopy may be warranted. 3. 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 Dictated by: Del Coyne M.D. on 03/13/2018 at 10:34 Approved by: Del Coyne M.D. on 03/13/2018 at 10:39
--- NOTE | 2018-03-14 05:05 | ED.ABDPAIN ---
HPI - Abdominal Pain General Chief Complaint: Abdominal Pain Stated Complaint: ABD Crampling Time Seen by Provider: 03/13/18 04:00 Source: patient and EMS Mode of arrival: EMS Limitations: no limitations History of Present Illness HPI narrative: Pleasant 82-year-old female presents by EMS for evaluation generalized abdominal cramping over the course of the day. She was recently seen and evaluated diagnosed with diverticulitis and placed on antibiotics. She had not been taking the pain medications as she did not understand she was intended to take these in conjunction with antibiotics. She has no ongoing fever, chills nor nausea or vomiting. Her pain is worse with motion and improves with rest. She is otherwise well and free of complaint. MD complaint: abdominal pain Onset (ago): hour(s) Pain Consistency: constant Location: diffuse Severity: mild Quality: cramping Radiation: none Migration to: no migration Relieving factors: nothing Exacerbating factors: nothing Associated symptoms: denies other symptoms Related Data Home Medications Medication Instructions Recorded Confirmed CALCIUM CARBONATE 500 mg PO Q DAY #0 02/24/11 02/02/18 MULTIVITAMIN (#MULTIPLE VITAMINS) 1 cap PO 4-6XD #0 02/24/11 02/02/18 ACETAMINOPHEN 650 mg PO Q4HP #0 08/17/12 02/02/18 hyoscyamine sulfate 0.125 mg PO/SL Q2H PRN 12/13/17 02/02/18 magnesium hydroxide 400 mg/5 mL 30 ml PO BEDTIME PRN 01/01/18 02/02/18 oral suspension Previous Rx's Medication Instructions Recorded lisinopril [Zestril] 40 mg PO QDAY #90 tab 04/17/17 triamcinolone acetonide 0 gm TOPICAL SEE INSTRUCTIONS #80 11/13/17 gm chlordiazepoxide-clidinium 5 1 cap PO QDAY #30 cap 12/05/17 mg-2.5 mg capsule lorazepam 0.5 mg tablet 0.5 mg PO .COMPLEX #90 tab 02/21/18 amoxicillin-pot clavulanate 1 tab PO Q12H 7 Days #14 tab 03/10/18 [Augmentin] Allergies Allergy/AdvReac Type Severity Reaction Status Date / Time levofloxacin [From LEVAQUIN] AdvReac Unknown dizziness, Verified 02/02/18 13:29 not sure if related or not...08/30/16 Review of Systems Review of Systems All systems reviewed & are unremarkable except as noted in HPI and below Constitutional Denies chills, Denies fever(s), Denies lethargy and Denies weakness Eyes Denies change in vision, Denies eye discharge, Denies irritation and Denies loss of vision ENT Ears, Nose, Mouth, and Throat: Denies change in voice, Denies neck pain and Denies sore throat Cardiovascular Denies chest pain, Denies irregular heart rhythm, Denies lightheadedness, Denies palpitations, Denies dyspnea, Denies dyspnea on exertion and Denies orthopnea Respiratory Denies cough, Denies dyspnea, Denies dyspnea on exertion and Denies wheezing Gastrointestinal Gastrointestinal: Reports abdominal pain, Reports change in bowel habits, Denies diarrhea, Denies nausea and Denies vomiting Genitourinary Denies hematuria, Denies flank pain, Denies urinary incontinence and Denies urinary urgency Musculoskeletal Denies neck pain Integumentary/Breasts Denies pruritus, Denies erythema, Denies rash and Denies wounds Neurologic Denies confusion, Denies loss of vision and Denies weakness Psychiatric Denies anxiety, Denies confusion, Denies depression, Denies homicidal ideation and Denies suicidal ideation Endocrine Denies palpitations Hematologic/Lymphatic Denies easy bruising Allergic/Immunologic Denies wheezing PFSH Medical History Anxiety (Chronic) Diverticular disease (Chronic) Hyperlipidemia (Chronic) Hypertension (Chronic) Osteoporosis (Chronic) Surgical History H/O colonoscopy (Resolved) History of appendectomy (Resolved) History of foot surgery (Resolved) Social History marital status: number of children: 1 () household members: friend(s) lives independently: Yes caregiver/support person: Yes (Step daughter) housing: apartment (4 plex) pets and animals: No education level: high school occupational status: other (Retired) 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 hortencia/restoration: Anabaptism leisure activities: music, reading and other (crossword puzzels.) Smoking Status: Never smoker Tobacco: How many years used: 0 alcohol intake: current (1 glass of wine during a day. Occasional drinking.) substance use type: does not use Exam Initial Vital Signs Initial Vital Signs: Vital Signs Temperature 98.4 F 03/13/18 04:03 Pulse Rate 92 H 03/13/18 04:03 Respiratory Rate 16 03/13/18 04:03 Blood Pressure 178/85 H 03/13/18 04:03 Pulse Oximetry 100 03/13/18 04:03 Const General: cooperative and well developed Nutritional Appearance: well nourished Orientation: alert, awake, oriented x3 and not confused HENTX Head: normocephalic and atraumatic Ears: external ears normal and TM's normal bilaterally Nose: external nose normal and No nasal discharge Face and sinus: sinuses nontender, face symmetric, no sinus tenderness and No dry mucous membranes Mouth: oral mucosae normal and moist mucous membranes Teeth and gingiva: dentition normal Throat: tonsils normal and uvula midline Eyes General: appearance normal, both eyes and all related structures Eyelids: eyelids normal Conjunctivae: conjunctivae normal Sclera: sclerae normal Pupils: PERRL EOM: EOM intact bilaterally Neck Neck: normal visual inspection, trachea midline, No lymphadenopathy, No midline deformity and No JVD Lymphatic: No lymphedema Chest Chest: normal inspection of the chest Resp Effort & Inspection: normal respiratory effort, able to speak in complete sentences, no respiratory distress and no use of accessory muscles Auscultation: clear to auscultation bilaterally, no rales, no rhonchi and no wheezes Cardio Rate: regular rate Rhythm: regular rhythm Heart Sounds: no click, no gallops, no murmurs and no rubs Pulses: normal peripheral pulses GI Inspection: non-distended Palpation: soft, no hepatosplenomegaly, No guarding, No pulsatile mass and tender Auscultation: normal bowel sounds Back/Spine/Pelvis Back: No CVA tenderness Cervical Spine: cervical ROM normal and No pain with cervical ROM Thoracic/Lumbar Spine: thoracic and lumbar spine normal to inspection Skin General: no rashes or lesions noted, No jaundice and No petechiae Neuro General: alert, oriented x3, gait normal and no focal motor deficits Speech: speech normal Extrem General: full ROM, no clubbing, cyanosis or edema, no pedal edema and no calf tenderness Psych Appearance: well kempt Mental Status: mental status grossly normal Attitude: cooperative Thought Content: normal and suicidality Judgment: judgment good MDM - Abdominal Pain Differential Diagnosis Differential diagnosis: Likely abdominal pain, acute appendicitis, calculus of kidney, constipation, diverticulitis, gastroenteritis and small bowel obstruction Medical Records Attestation: I reviewed the patient's medical records. Lab Data Attestation: I reviewed the patient's lab results. Result diagrams: 03/13/18 04:31 03/13/18 04:31 Lab Results 03/13/18 03/13/18 Range/Units 04:31 04:31 WBC 8.7 (4.5-11.0) X10^3/uL RBC 4.58 (4.0-5.2) X10^6/uL Hgb 13.4 (12.0-16.0) g/dL Hct 39.7 (36-46) % MCV 86.6 (80-100) fL MCH 29.2 (26-34) PG MCHC 33.7 (30-36) % RDW 14.4 (11.6-14.8) % Plt Count 280 (150-400) X10^3/uL Neut % (Auto) 71.5 (50-75) % Lymph % (Auto) 11.6 L (25-40) % [place] % (Auto) 15.4 H (3-14) % Eos % (Auto) 0.7 L (2-4) % Baso % (Auto) 0.8 (0-2) % Neut # (Auto) 6200 H (6860-0573) /uL Sodium 132 L (137-145) mmol/L Potassium 4.0 (3.4-5.1) mmol/L Chloride 95 L (98-107) mmol/L Carbon Dioxide 27 (22-32) mmol/L BUN 8 (7-17) mg/dL Creatinine 0.60 (0.52-1.04) mg/dL Estimated GFR > 60.0 (>60) mL/min BUN/Creatinine Ratio 13.3 (6-22) Glucose 106 (80-110) mg/dL Calcium 9.9 (8.4-10.2) mg/dL Point of care testing: Urine Dip Bedside Urine Glucose Negative Bedside Urine Bilirubin - Negative Bedside Urine Ketone - Negative Urine Specific [place] 1.010 Bedside Urine Occult Blood - Negative Bedside Urine pH 8.0 Bedside Urine Protein - Negative Bedside Urine Urobilinogen - Negative Bedside Urine Nitrite - Negative Bedside Urine Leukocytes - Negative Esterase Imaging Data CT scan - abdomen: Attestation: I personally reviewed and interpreted this imaging study as follows: Radiologist's impression: PROCEDURE: CT ABDOMEN PELVIS W CON INDICATIONS: severe bowel pain TECHNIQUE: After the administration of intravenous contrast, 5 mm thick sections acquired from the diaphragm to the symphysis. 5 mm coronal and sagittal reformats were acquired. For radiation dose reduction, the following was used: automated exposure control, adjustment of mA and/or kV according to patient size. COMPARISON: [facility], CT, CT ABDOMEN PELVIS W CON, 12/13/2017, 15:33. [facility], CT, ABDOMEN/PELVIS WITH CONTRAST, 05/08/2016, 9:32. FINDINGS: Image quality: Excellent. ABDOMEN: Lung bases: Lung bases are clear. Heart size is normal. Solid organs: Liver is normal in size and enhancement. Gallbladder appears normal. Biliary system is non dilated. Pancreas enhances normally. Spleen is normal in size and enhancement. No adrenal nodules. Kidneys demonstrate normal size and enhancement, without hydronephrosis. Peritoneum and bowel: Bowel loops demonstrate normal wall thickness and caliber. No free fluid or air. Nodes and vessels: No retroperitoneal or mesenteric adenopathy by size criteria. Aorta and inferior vena cava are normal in size. 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 Ischemic bowel is not identified, however. Miscellaneous: No ventral hernias. PELVIS: Genitourinary: Bladder wall thickness is normal. Calcified uterine fibroid at the uterine fundus. Miscellaneous: No inguinal hernias or adenopathy. There is extensive diverticulosis involving the sigmoid colon and distal descending colon, and at the middle third of the sigmoid colon area a small degree of mural thickening is present centered on series 2 image 50. This likely represents acute diverticulitis but no adjacent pericolonic abscess is found. Colonic neoplasm is a potential alternative cause. Bones: No suspicious bony lesions. No vertebral body compression fractures. IMPRESSION: 1. Extensive distal descending and sigmoid diverticulosis, suspect mild acute diverticulitis at the [id number] thirds of the sigmoid colon without peridiverticular abscess. 2. The area of sigmoid mural thickening discussed above conceivably could represent an early manifestation of neoplasm. Please correlate clinically. Followup by sigmoidoscopy may be warranted. 3. 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 Dictated by: Del Coyne M.D. on 03/13/2018 at 10:34 Approved by: Del Coyne M.D. on 03/13/2018 at 10:39 [facility] Narrative Medical decision making narrative: Patient has known diverticulitis and presents with signs and symptoms consistent with this diagnosis. Her symptoms would likely have been controlled had she taken her medications as prescribed. Other diagnoses such as bowel obstruction were considered but thought less likely given imaging Discharge Plan Departure Patient Disposition: Home Clinical Impression: Diverticulitis Discharge Date/Time: 03/13/18 06:58 Interventions: ED Discharge Assessment Last Done: 03/13/18 06:54 Instructions: Diverticulitis Activity Restrictions/Additional Instructions: There is no evidence of an emergent or life threatening illness at this time, but follow up with your doctor in 1-2 days is recommended nonetheless to continue to rule out serious underlying causes of your symptoms. Please call the office for an appointment. Please return to the Emergency Department for any worsening or persistent symptoms. Please take medications as directed. Prescriptions: No Action CALCIUM CARBONATE 500 mg PO Q DAY Qty: 0 RF: 0 MULTIVITAMIN (#MULTIPLE VITAMINS) bottle 1 cap PO 4-6XD Qty: 0 RF: 0 ACETAMINOPHEN 650 mg PO Q4HP Qty: 0 RF: 0 lisinopril [Zestril] 40 MG tablet 40 mg PO QDAY Qty: 90 RF: 3 triamcinolone acetonide 0.1 % cream Topical SEE INSTRUCTIONS Qty: 80 RF: 0 lorazepam [Ativan] 0.5 mg tablet 0.5 mg PO .COMPLEX Qty: 90 RF: 0 magnesium hydroxide [Milk of Magnesia] 400 mg/5 mL suspension 30 ml PO BEDTIME PRNRF: 0 chlordiazepoxide-clidinium [Librax (with clidinium)] 5-2.5 mg capsule 1 cap PO QDAY Qty: 30 RF: 3 hyoscyamine sulfate 0.125 MG tablet 0.125 mg PO/SL Q2H PRN (Reason: Abdominal Discomfort) RF: 0 amoxicillin-pot clavulanate [Augmentin] 875-125 mg tablet 1 tab PO Q12H 7 Days Qty: 14 RF: 0
== END 2018-03-13 06:58 | disposition home or self-care (01) ==
PROVIDERS: Emergency Provider Emergency Medicine; PCP Internal Medicine
DX: K57.92 Diverticulitis of intestine, part unspecified, without perforation or abscess without bleeding (principal)
CPT/HCPCS: 36415; 74022; 74177; 80048; 81003; 85025; 99282; 99285; Q9967

== ENCOUNTER 2018-03-24 08:31 | Emergency (ER) | payer MEDICARE, OTHER, SELFPAY ==
[2018-03-24 08:41] VITALS: BP 171/80; PULSE 90; RESP 20; TEMP 36.4; O2SAT 100; BMI 21.0
--- NOTE | 2018-03-24 08:54 | ED_ITS ---
HPI - Abdominal Pain General Chief Complaint: Abdominal Pain Stated Complaint: CRAMPS. Time Seen by Provider: 03/24/18 08:42 Source: patient Mode of arrival: ambulatory Limitations: no limitations History of Present Illness HPI narrative: Patient is a raysa 82-year-old female who presents with abdominal cramping. She was just treated for diverticulitis 03/14/2018. She finished her course of Augmentin for 7 days. She says she was feeling better and till yesterday when she started noticing cramping cramping and got worse. She was actually constipated a couple days she took a dose of milk of magnesium and had loose bowel movement. It was nonbloody. She denies fever nausea or vomiting. Related Data Home Medications Medication Instructions Recorded Confirmed CALCIUM CARBONATE 500 mg PO Q DAY #0 02/24/11 03/16/18 MULTIVITAMIN (#MULTIPLE VITAMINS) 1 cap PO 4-6XD #0 02/24/11 03/16/18 ACETAMINOPHEN 650 mg PO Q4HP #0 08/17/12 03/16/18 hyoscyamine sulfate 0.125 mg PO/SL Q2H PRN 12/13/17 03/16/18 magnesium hydroxide 400 mg/5 mL 30 ml PO BEDTIME PRN 01/01/18 03/16/18 oral suspension Previous Rx's Medication Instructions Recorded lisinopril [Zestril] 40 mg PO QDAY #90 tab 04/17/17 triamcinolone acetonide 0 gm TOPICAL SEE INSTRUCTIONS #80 11/13/17 gm chlordiazepoxide-clidinium 5 1 cap PO QDAY #30 cap 12/05/17 mg-2.5 mg capsule lorazepam 0.5 mg tablet 0.5 mg PO .COMPLEX #90 tab 02/21/18 Allergies Allergy/AdvReac Type Severity Reaction Status Date / Time levofloxacin [From LEVAQUIN] AdvReac Unknown dizziness, Verified 03/16/18 13:27 not sure if related or not...08/30/16 Review of Systems Review of Systems GENERAL: Denies chills, fatigue, malaise, fever, sweats, travel HEENT: Denies sinus pain, ear pain, sore throat, difficulty swallowing, neck pain RESPIRATORY: Denies dyspnea, cough, wheezing, hemoptysis, sputum. CARDIOVASCULAR: Denies chest pain, palpitations, orthopnea, edema GASTROINTESTINAL: See HPI : Denies dysuria, frequency, incontinence, hematuria, urinary retention, flank pain. MUSCULOSKELETAL: Denies weakness, joint pain, or bony pain SKIN: No rash, no erythema, no pruritus NEUROLOGIC: Denies weakness, dizziness, headache, numbness, change in speech, confusion PSYCHIATRIC: No concerning psychosocial issues. 12 point review of systems is negative except for those stated above and HPI PFSH Medical History Anxiety (Chronic 09/16/13) Irritable bowel syndrome without diarrhea (Chronic 05/28/15) Abdominal pain (Chronic) Essential hypertension (Chronic 02/24/11) Mixed hyperlipidemia (Chronic 02/24/11) Irritable bowel syndrome with diarrhea (Chronic 09/13/16) Diverticulosis of large intestine (Chronic) Lung nodule seen on imaging study (Chronic 10/03/12) Osteoporosis (Chronic 02/24/11) History of adenomatous polyp of colon (Chronic) Surgical History H/O colonoscopy (Resolved) History of appendectomy (Resolved) History of foot surgery (Resolved) Social History marital status: number of children: 1 () household members: friend(s) lives independently: Yes caregiver/support person: Yes (Step daughter) housing: apartment (4 plex) pets and animals: No education level: high school occupational status: other (Retired) 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 hortencia/denominational: Orthodoxy leisure activities: music, reading and other (crossword puzzels.) Smoking Status: Never smoker Tobacco: How many years used: 0 alcohol intake: current (1 glass of wine during a day. Occasional drinking.) substance use type: does not use Exam Initial Vital Signs Initial Vital Signs: Vital Signs Temperature 97.6 F 03/24/18 08:41 Pulse Rate 90 03/24/18 08:41 Respiratory Rate 20 03/24/18 08:41 Blood Pressure 171/80 H 03/24/18 08:41 Pulse Oximetry 100 03/24/18 08:41 GENERAL: [Well-appearing, well-nourished] and in [no acute] distress. HEENT: Head atraumatic,EOMI, pupils reactive CARDIOVASCULAR: Regular rate and rhythm without murmurs, rubs or gallops. RESPIRATORY: Breath sounds equal bilaterally, no wheezes rales or rhonchi. ABDOMEN: Soft, minimal tenderness without guarding or rebound. Normoactive bowel sounds all 4 quadrants. No guarding or rebound. EXTREMITIES: Normal range of motion, no clubbing or edema. Neurovascularly intact NEUROLOGICAL: Alert and oriented x4.Normal gait and speech. SKIN: Warm, dry, no laceration, no petechiae, no rashes or lesions. Course Orders Ordered: ED Orders 03/24/18 08:55 Complete Blood Count AUTO DIFF Stat Comprehensive Metabolic Panel Stat Lipase Stat 03/24/18 09:00 CT abdomen pelvis w con Stat Discontinued Medications Sodium Chloride (Normal Saline 0.9%) 1,000 mls @ 150 mls/hr IV CONT YUSUF Last Infusion: 03/24/18 11:05 Dose: 0 mls/hr Admin: 03/24/18 09:13 Dose: 150 mls/hr Ketorolac Tromethamine (Toradol) 15 mg IV NOW ONE Stop: 03/24/18 09:00 Last Admin: 03/24/18 09:13 Dose: 15 mg Vital Signs - 8 hr 03/24/18 08:41 03/24/18 10:19 03/24/18 11:07 Temperature 97.6 F Pulse Rate 90 83 83 Respiratory Rate 20 14 16 Blood Pressure 171/80 H 143/72 H Blood Pressure [Left Arm] 156/80 H Pulse Oximetry 100 100 100 MDM - Abdominal Pain Lab Data Result diagrams: 03/24/18 08:55 03/24/18 08:55 Lab Results 03/24/18 03/24/18 Range/Units 08:55 08:55 WBC 8.7 (4.5-11.0) X10^3/uL RBC 4.90 (4.0-5.2) X10^6/uL Hgb 14.1 (12.0-16.0) g/dL Hct 42.1 (36-46) % MCV 85.9 (80-100) fL MCH 28.8 (26-34) PG MCHC 33.5 (30-36) % RDW 14.3 (11.6-14.8) % Plt Count 340 (150-400) X10^3/uL Neut % (Auto) 81.3 H (50-75) % Lymph % (Auto) 8.6 L (25-40) % [place] % (Auto) 9.0 (3-14) % Eos % (Auto) 0.4 L (2-4) % Baso % (Auto) 0.7 (0-2) % Neut # (Auto) 7100 H (8492-4128) /uL Sodium 136 L (137-145) mmol/L Potassium 4.3 (3.4-5.1) mmol/L Chloride 101 (98-107) mmol/L Carbon Dioxide 26 (22-32) mmol/L BUN 11 (7-17) mg/dL Creatinine 0.60 (0.52-1.04) mg/dL Estimated GFR > 60.0 (>60) mL/min BUN/Creatinine Ratio 18.3 (6-22) Glucose 95 (80-110) mg/dL Calcium 9.6 (8.4-10.2) mg/dL Total Bilirubin 0.4 (0.2-1.3) mg/dL AST 20 (14-36) IU/L ALT 17 (9-52) IU/L Alkaline Phosphatase 80 (38-126) U/L Total Protein 7.7 (6.3-8.2) g/dL Albumin 4.3 (3.5-5.0) g/dL Globulin 3.4 (1.7-4.1) g/dL Albumin/Globulin Ratio 1.3 (1.0-2.8) Lipase 88 (23-300) U/L Imaging Data CT scan - abdomen: Radiologist's impression: PROCEDURE: CT ABDOMEN PELVIS W CON INDICATIONS: recent diverticulitis worsening pain TECHNIQUE: After the administration of intravenous contrast, 5 mm thick sections acquired from the diaphragm to the symphysis. 5 mm coronal and sagittal reformats were acquired. For radiation dose reduction, the following was used: automated exposure control, adjustment of mA and/or kV according to patient size. COMPARISON: [facility], CT, CT ABDOMEN PELVIS W CON, 03/13/2018, 4:56. FINDINGS: Image quality: Excellent. ABDOMEN: Lung bases: Lung bases are clear. Heart size is normal. There is a small hiatal hernia. Solid organs: Liver is normal in size and enhancement. Gallbladder is unremarkable. Biliary system is non dilated. Pancreas enhances normally. Spleen is normal in size and enhancement. No adrenal nodules. Kidneys demonstrate normal size and enhancement, without hydronephrosis. Peritoneum and bowel: Bowel loops demonstrate normal wall thickness and caliber. The appendix is not visualized; however there is no discrete right lower quadrant fluid or fat stranding to suggest acute appendicitis. There are extensive colonic diverticular outpouchings throughout the entire colon. There is no mucosal thickening, pericolonic fat stranding, or other findings to suggest acute inflammatory change. No free fluid or air. Nodes and vessels: No retroperitoneal or mesenteric adenopathy by size criteria. Aorta and inferior vena cava are normal in size. There are scattered atheromatous calcifications throughout the aorta and iliac arteries bilaterally. Miscellaneous: No ventral hernias. PELVIS: Genitourinary: Bladder wall thickness is normal. Miscellaneous: No inguinal hernias or adenopathy. The uterus is diminutive and calcified. Bones: No suspicious bony lesions. No vertebral body compression fractures. IMPRESSION: 1. Extensive colon diverticulosis. No findings to suggest acute diverticulitis. 2. The appendix is not visualized; however there are no ancillary findings to suggest acute appendicitis. Dictated by: Kristie Kenny M.D. on 03/24/2018 at 9:41 Approved by: Kristie Kenny M.D. on 03/24/2018 at 9:47 MDM Narrative Medical decision making narrative: Patient has no leukocytosis or evidence of diverticulitis on CT. She has just been on antibiotics. At this time would recommend holding off any further antibiotics. Discharge Plan Departure Patient Disposition: Home Clinical Impression: Abdominal pain Discharge Date/Time: 03/24/18 11:11 Interventions: ED Discharge Assessment Last Done: 03/24/18 11:07 Instructions: DI for Abdominal Pain-Adult Activity Restrictions/Additional Instructions: *You have been diagnosed with abdominal pain *What to do: At this time blood work do not show any sign of diverticulitis. I recommend that he continue to take care at pain medications you may combine it with 500-650 mg of Tylenol *Continue to take medications as directed *Follow up with your primary care provider in 2-3 days *Return to ER if you should have increasing pain, nausea, vomiting, fever or any new, worsening or concerning symptoms Prescriptions: No Action CALCIUM CARBONATE 500 mg PO Q DAY Qty: 0 RF: 0 MULTIVITAMIN (#MULTIPLE VITAMINS) bottle 1 cap PO 4-6XD Qty: 0 RF: 0 ACETAMINOPHEN 650 mg PO Q4HP Qty: 0 RF: 0 lisinopril [Zestril] 40 MG tablet 40 mg PO QDAY Qty: 90 RF: 3 triamcinolone acetonide 0.1 % cream Topical SEE INSTRUCTIONS Qty: 80 RF: 0 lorazepam [Ativan] 0.5 mg tablet 0.5 mg PO .COMPLEX Qty: 90 RF: 0 magnesium hydroxide [Milk of Magnesia] 400 mg/5 mL suspension 30 ml PO BEDTIME PRNRF: 0 chlordiazepoxide-clidinium [Librax (with clidinium)] 5-2.5 mg capsule 1 cap PO QDAY Qty: 30 RF: 3 hyoscyamine sulfate 0.125 MG tablet 0.125 mg PO/SL Q2H PRN (Reason: Abdominal Discomfort) RF: 0 Referrals: Brain Gomez MD [Primary Care Provider] -
--- NOTE | 2018-03-24 09:00 | DI.CT.S_ITS ---
PROCEDURE: CT ABDOMEN PELVIS W CON INDICATIONS: recent diverticulitis worsening pain TECHNIQUE: After the administration of intravenous contrast, 5 mm thick sections acquired from the diaphragm to the symphysis. 5 mm coronal and sagittal reformats were acquired. For radiation dose reduction, the following was used: automated exposure control, adjustment of mA and/or kV according to patient size. COMPARISON: [facility], CT, CT ABDOMEN PELVIS W CON, 03/13/2018, 4:56. FINDINGS: Image quality: Excellent. ABDOMEN: Lung bases: Lung bases are clear. Heart size is normal. There is a small hiatal hernia. Solid organs: Liver is normal in size and enhancement. Gallbladder is unremarkable. Biliary system is non dilated. Pancreas enhances normally. Spleen is normal in size and enhancement. No adrenal nodules. Kidneys demonstrate normal size and enhancement, without hydronephrosis. Peritoneum and bowel: Bowel loops demonstrate normal wall thickness and caliber. The appendix is not visualized; however there is no discrete right lower quadrant fluid or fat stranding to suggest acute appendicitis. There are extensive colonic diverticular outpouchings throughout the entire colon. There is no mucosal thickening, pericolonic fat stranding, or other findings to suggest acute inflammatory change. No free fluid or air. Nodes and vessels: No retroperitoneal or mesenteric adenopathy by size criteria. Aorta and inferior vena cava are normal in size. There are scattered atheromatous calcifications throughout the aorta and iliac arteries bilaterally. Miscellaneous: No ventral hernias. PELVIS: Genitourinary: Bladder wall thickness is normal. Miscellaneous: No inguinal hernias or adenopathy. The uterus is diminutive and calcified. Bones: No suspicious bony lesions. No vertebral body compression fractures. IMPRESSION: 1. Extensive colon diverticulosis. No findings to suggest acute diverticulitis. 2. The appendix is not visualized; however there are no ancillary findings to suggest acute appendicitis. Dictated by: Kristie Kenny M.D. on 03/24/2018 at 9:41 Approved by: Kristie Kenny M.D. on 03/24/2018 at 9:47
[2018-03-24 09:13] LABS: Add Manual Diff / Slide Review NO; Basophils Percent Auto 0.7 % (0-2); Eosinophils Percent Auto 0.4 % (2-4); Hematocrit 42.1 % (36-46); Hemoglobin 14.1 g/dL (12.0-16.0); Lymphocytes Percent Auto 8.6 % (25-40); Mean Corpuscular HGB Conc 33.5 % (30-36); Mean Corpuscular Hemoglobin 28.8 PG (26-34); Mean Corpuscular Volume 85.9 fL (80-100); Neutrophils Absolute Auto 7100 /uL (3000-5900); Neutrophils Percent Auto 81.3 % (50-75); Platelet Count 340 X10^3/uL (150-400); Red Cell Distribution Width 14.3 % (11.6-14.8); White Blood Cell Count 8.7 X10^3/uL (4.5-11.0)
[2018-03-24] MEDS: SODIUM CHLORIDE 0.9% 1,000 ML 150 ML IV (09:13)
[2018-03-24] MEDS: KETOROLAC 60 MG/2 ML VIAL 15 MG IV (09:13)
[2018-03-24 09:23] LABS: Alanine Aminotransferase 17 IU/L (9-52); Albumin 4.3 g/dL (3.5-5.0); Albumin Globulin Ratio 1.3 (1.0-2.8); Alkaline Phosphatase 80 U/L (38-126); Aspartate Aminotransferase 20 IU/L (14-36); BUN Creatinine Ratio 18.3 (6-22); Bilirubin Total 0.4 mg/dL (0.2-1.3); Blood Urea Nitrogen 11 mg/dL (7-17); Calcium 9.6 mg/dL (8.4-10.2); Carbon Dioxide 26 mmol/L (22-32); Chloride 101 mmol/L (98-107); Estimated Glomerular Filt Rate > 60.0 mL/min (>60); Globulin 3.4 g/dL (1.7-4.1); Glucose 95 mg/dL (80-110); HEMOLYSIS < 15 (0-50); Lipase 88 U/L (23-300); Potassium 4.3 mmol/L (3.4-5.1); Sodium 136 mmol/L (137-145); Total Protein 7.7 g/dL (6.3-8.2)
[2018-03-24 10:19] VITALS: BP 156/80; PULSE 83; RESP 14; O2SAT 100
[2018-03-24 11:07] VITALS: BP 143/72; PULSE 83; RESP 16; O2SAT 100
== END 2018-03-24 11:11 | disposition home or self-care (01) ==
PROVIDERS: Emergency Provider Emergency Medicine; PCP Internal Medicine
DX: R10.9 Unspecified abdominal pain (principal)
CPT/HCPCS: 36415; 36591; 74177; 80053; 83690; 85025; 99282; 99283; 99285; J1885; Q9967

== ENCOUNTER 2018-03-24 16:19 | Emergency (ER) | payer MEDICARE, OTHER, SELFPAY ==
[2018-03-24 16:40] VITALS: BP 175/86; PULSE 87; RESP 14; TEMP 36.9; O2SAT 100
[2018-03-24] MEDS: MAG HYDROX/ALUMINUM/SIMETH SUS 20 ML, LIDOCAINE VISCOUS 2% 15 ML PO (18:00)
--- NOTE | 2018-03-24 18:03 | ED_ITS ---
HPI - Abdominal Pain General Chief Complaint: Abdominal Pain Stated Complaint: ABD PAIN Time Seen by Provider: 03/24/18 17:00 Source: patient and family Mode of arrival: ambulatory Limitations: no limitations History of Present Illness HPI narrative: This 82-year-old female with a history of chronic abdominal pain returns to the ED complaining of persistent pain. She was just treated for diverticulitis and finished her antibiotic. She saw her PCP last week and was feeling better. She states that she has been taking her usual medications for her irritable bowel, however today her pain has been worse. She states that pain is constant, without exacerbating or alleviating features. She feels like this is in the middle of her abdomen. She initially denies any new medications or dietary changes, however she did eat Persian food yesterday including Pea pods and some type of pork filled meatball when normally she just has soup. She denies any fever at home. She denies any chest pain, dyspnea, or new pain in the extremities. She denies any nausea or vomiting. She denies any urinary symptoms or hematuria. She states that her last bowel movement was yesterday. She has not had 1 today but that is not unusual for her. She denies any blood in the stool or any other new complaints. She was seen here this morning and no acute findings on workup including lab work and CT scan Related Data Home Medications Medication Instructions Recorded Confirmed CALCIUM CARBONATE 500 mg PO Q DAY #0 02/24/11 03/16/18 MULTIVITAMIN (#MULTIPLE VITAMINS) 1 cap PO 4-6XD #0 02/24/11 03/16/18 ACETAMINOPHEN 650 mg PO Q4HP #0 08/17/12 03/16/18 hyoscyamine sulfate 0.125 mg PO/SL Q2H PRN 12/13/17 03/16/18 magnesium hydroxide 400 mg/5 mL 30 ml PO BEDTIME PRN 01/01/18 03/16/18 oral suspension Previous Rx's Medication Instructions Recorded lisinopril [Zestril] 40 mg PO QDAY #90 tab 04/17/17 triamcinolone acetonide 0 gm TOPICAL SEE INSTRUCTIONS #80 11/13/17 gm chlordiazepoxide-clidinium 5 1 cap PO QDAY #30 cap 12/05/17 mg-2.5 mg capsule lorazepam 0.5 mg tablet 0.5 mg PO .COMPLEX #90 tab 02/21/18 Allergies Allergy/AdvReac Type Severity Reaction Status Date / Time levofloxacin [From LEVAQUIN] AdvReac Unknown dizziness, Verified 03/16/18 13:27 not sure if related or not...08/30/16 Review of Systems Review of Systems All systems reviewed & are unremarkable except as noted in HPI and below PFSH Medical History Anxiety (Chronic 09/16/13) Irritable bowel syndrome without diarrhea (Chronic 05/28/15) Abdominal pain (Chronic) Essential hypertension (Chronic 02/24/11) Mixed hyperlipidemia (Chronic 02/24/11) Irritable bowel syndrome with diarrhea (Chronic 09/13/16) Diverticulosis of large intestine (Chronic) Lung nodule seen on imaging study (Chronic 10/03/12) Osteoporosis (Chronic 02/24/11) History of adenomatous polyp of colon (Chronic) Surgical History H/O colonoscopy (Resolved) History of appendectomy (Resolved) History of foot surgery (Resolved) Social History marital status: number of children: 1 () household members: friend(s) lives independently: Yes caregiver/support person: Yes (Step daughter) housing: apartment (4 plex) pets and animals: No education level: high school occupational status: other (Retired) 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 hortencia/christianity: Restorationism leisure activities: music, reading and other (crossword puzzels.) Smoking Status: Never smoker Tobacco: How many years used: 0 alcohol intake: current (1 glass of wine during a day. Occasional drinking.) substance use type: does not use Exam Narrative Exam Narrative: GENERAL APPEARANCE: Patient sitting comfortably, in no distress. HEENT: PERRL, EOMI, no scleral icterus NECK: Supple LUNGS: Clear to auscultation bilaterally. HEART: Rate and rhythm regular, normal S1 and S2, no S3 or S4. ABDOMEN: Soft, nondistended, bowel sounds present x 4 quadrants, no masses palpable, no hepatosplenomegaly. No CVAT. She has moderate generalized tenderness without guarding or rebound, appears to be more mid and lower quadrant EXTREMITIES: No edema, no cyanosis DERMATOLOGIC: No jaundice or exanthem NEUROLOGIC: Alert and oriented with normal speech and coordination Initial Vital Signs Initial Vital Signs: Vital Signs Temperature 98.4 F 03/24/18 16:40 Pulse Rate 87 03/24/18 16:40 Respiratory Rate 14 03/24/18 16:40 Blood Pressure 175/86 H 03/24/18 16:40 Pulse Oximetry 100 03/24/18 16:40 Course Additional Information: patient felt significantly improved at the time of discharge. No acute findings on exam this evening nor workup earlier today. Suspect exacerbation of her IBS due to food changes yesterday. Reassured her that there is no evidence of recurrent diverticulitis. Advised to continue liquid antacid as needed as well as trying [id number] simethicone in addition to her usual medications. She was agreeable with this plan as well as to return if any acutely worsening symptoms again Orders Ordered: Discontinued Medications Al Hydrox/Mg Hydrox/Simethicone 20 ml/ Lidocaine HCl 15 ml 0 ml PO NOW ONE Stop: 03/24/18 17:54 Last Admin: 03/24/18 18:00 Dose: 30 ml Simethicone (Mylicon) 80 mg PO NOW ONE Stop: 03/24/18 18:00 Last Admin: 03/24/18 18:26 Dose: Vital Signs - 8 hr 03/24/18 16:40 03/24/18 18:35 Temperature 98.4 F Pulse Rate 87 79 Respiratory Rate 14 15 Blood Pressure 175/86 H Blood Pressure [Left Arm] 173/83 H Pulse Oximetry 100 100 Discharge Plan Departure Patient Disposition: Home Clinical Impression: Abdominal pain Discharge Date/Time: 03/24/18 19:09 Interventions: ED Discharge Assessment Last Done: 03/24/18 19:09 Instructions: DI for Abdominal Pain-Adult Activity Restrictions/Additional Instructions: Your testing today including lab work and CT scan of your abdomen was reassuring. It does not appear that you have diverticulitis again. I think that what you had to eat yesterday from the Persian restaurant put too much stress on your bowels too soon and caused your pain today. Please take your usual medicines at home including milk of magnesia as needed. Please add a liquid Maalox or Mylanta or Gaviscon, which is similar to what we gave you here , as needed. You can also simethicone (Gas-X or similar, 800 to 160mg per dose , up to 500mg daily) to help with the bloating and lower bowel pain. Return as we talked about if you have acutely worsening symptoms again Prescriptions: No Action CALCIUM CARBONATE 500 mg PO Q DAY Qty: 0 RF: 0 MULTIVITAMIN (#MULTIPLE VITAMINS) bottle 1 cap PO 4-6XD Qty: 0 RF: 0 ACETAMINOPHEN 650 mg PO Q4HP Qty: 0 RF: 0 lisinopril [Zestril] 40 MG tablet 40 mg PO QDAY Qty: 90 RF: 3 triamcinolone acetonide 0.1 % cream Topical SEE INSTRUCTIONS Qty: 80 RF: 0 lorazepam [Ativan] 0.5 mg tablet 0.5 mg PO .COMPLEX Qty: 90 RF: 0 magnesium hydroxide [Milk of Magnesia] 400 mg/5 mL suspension 30 ml PO BEDTIME PRNRF: 0 chlordiazepoxide-clidinium [Librax (with clidinium)] 5-2.5 mg capsule 1 cap PO QDAY Qty: 30 RF: 3 hyoscyamine sulfate 0.125 MG tablet 0.125 mg PO/SL Q2H PRN (Reason: Abdominal Discomfort) RF: 0 Referrals: Brain Gomez MD [Primary Care Provider] -
[2018-03-24 18:35] VITALS: BP 173/83; PULSE 79; RESP 15; O2SAT 100
== END 2018-03-24 19:09 | disposition home or self-care (01) ==
PROVIDERS: Emergency Provider Internal Medicine; PCP Internal Medicine
DX: R10.9 Unspecified abdominal pain (principal)
CPT/HCPCS: 99282

== ENCOUNTER 2018-04-05 22:39 | Emergency (ER) | payer MEDICARE, OTHER, SELFPAY ==
[2018-04-05 22:40] VITALS: BP 164/95; PULSE 106; RESP 16; TEMP 37.3; O2SAT 98; BMI 21.0
[2018-04-06] MEDS: MAG HYDROX/ALUMINUM/SIMETH SUS 20 ML, LIDOCAINE VISCOUS 2% 15 ML PO (02:54)
--- NOTE | 2018-04-06 02:54 | ED_ITS ---
HPI - Abdominal Pain General Chief Complaint: Abdominal Pain Stated Complaint: Stomach Cramping t-1 day Time Seen by Provider: 04/05/18 22:45 Source: patient Mode of arrival: ambulatory Limitations: no limitations History of Present Illness HPI narrative: 83-year-old female with long history abdominal pain and frequent visits to the emergency department presents with a chief complaint some abdominal cramping earlier in the day. She denies any fever chills nor nausea or vomiting. She states this is pretty much the same set of circumstances that brings her to the emergency department so frequently. She denies any change in bowel movements and in fact states she had a normal BM earlier tonight. She denies dysuria, frequency or urgency. She has had no fever or chills. She states that she has been eating quite as much as normal because she does not want to initiate abdominal cramping. complaint: abdominal pain Onset (ago): hour(s) Pain Consistency: intermittent Location: diffuse Severity: mild Quality: cramping Radiation: none Migration to: no migration Relieving factors: nothing Exacerbating factors: eating Associated symptoms: denies other symptoms Related Data Home Medications Medication Instructions Recorded Confirmed CALCIUM CARBONATE 500 mg PO Q DAY #0 02/24/11 03/16/18 MULTIVITAMIN (#MULTIPLE VITAMINS) 1 cap PO 4-6XD #0 02/24/11 03/16/18 ACETAMINOPHEN 650 mg PO Q4HP #0 08/17/12 03/16/18 hyoscyamine sulfate 0.125 mg PO/SL Q2H PRN 12/13/17 03/16/18 magnesium hydroxide 400 mg/5 mL 30 ml PO BEDTIME PRN 01/01/18 03/16/18 oral suspension Previous Rx's Medication Instructions Recorded lisinopril [Zestril] 40 mg PO QDAY #90 tab 04/17/17 triamcinolone acetonide 0 gm TOPICAL SEE INSTRUCTIONS #80 11/13/17 gm chlordiazepoxide-clidinium 5 1 cap PO QDAY #30 cap 12/05/17 mg-2.5 mg capsule lorazepam 0.5 mg tablet 0.5 mg PO .COMPLEX #90 tab 02/21/18 Allergies Allergy/AdvReac Type Severity Reaction Status Date / Time levofloxacin [From LEVAQUIN] AdvReac Unknown dizziness, Verified 04/05/18 22:40 not sure if related or not...2/7/17 Review of Systems Review of Systems All systems reviewed & are unremarkable except as noted in HPI and below Constitutional Denies chills, Denies fever(s), Denies lethargy and Denies weakness Eyes Denies change in vision, Denies eye discharge, Denies irritation and Denies loss of vision ENT Ears, Nose, Mouth, and Throat: Denies change in voice, Denies neck pain and Denies sore throat Cardiovascular Denies chest pain, Denies irregular heart rhythm, Denies lightheadedness, Denies palpitations, Denies dyspnea, Denies dyspnea on exertion and Denies orthopnea Respiratory Denies cough, Denies dyspnea, Denies dyspnea on exertion and Denies wheezing Gastrointestinal Gastrointestinal: Denies abdominal pain, Denies change in bowel habits, Denies diarrhea, Denies nausea and Denies vomiting Genitourinary Denies hematuria, Denies flank pain, Denies urinary incontinence and Denies urinary urgency Musculoskeletal Denies neck pain Integumentary/Breasts Denies pruritus, Denies erythema, Denies rash and Denies wounds Neurologic Denies confusion, Denies loss of vision and Denies weakness Psychiatric Denies anxiety, Denies confusion, Denies depression, Denies homicidal ideation and Denies suicidal ideation Endocrine Denies palpitations Hematologic/Lymphatic Denies easy bruising Allergic/Immunologic Denies wheezing [facility] Medical History Anxiety (Chronic 09/16/13) Irritable bowel syndrome without diarrhea (Chronic 05/28/15) Abdominal pain (Chronic) Essential hypertension (Chronic 02/24/11) Mixed hyperlipidemia (Chronic 02/24/11) Irritable bowel syndrome with diarrhea (Chronic 09/13/16) Diverticulosis of large intestine (Chronic) Lung nodule seen on imaging study (Chronic 10/03/12) Osteoporosis (Chronic 02/24/11) History of adenomatous polyp of colon (Chronic) Surgical History H/O colonoscopy (Resolved) History of appendectomy (Resolved) History of foot surgery (Resolved) Social History marital status: number of children: 1 () household members: friend(s) lives independently: Yes caregiver/support person: Yes (Step daughter) housing: apartment (4 plex) pets and animals: No education level: high school occupational status: other (Retired) 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 hortencia/alevism: L[employer] leisure activities: music, reading and other (crossword puzzels.) Smoking Status: Never smoker Tobacco: How many years used: 0 alcohol intake: current (1 glass of wine during a day. Occasional drinking.) substance use type: does not use Exam Narrative Exam Narrative: GEN: Pleasant 83-year-old female, AOx3 and in mild distress EYES: Pupils are equal, round, and reactive to light and accommodation. Extraoccular muscles are intact bilaterally. There is no subconjunctival hemorrhage or exudate. CHEST: Lungs are clear to auscultation bilaterally and free of wheezes, rales, or rhonchi. Heart rate is regular rhythm, there are no murmurs, clicks, rubs, or gallops. There is no chest wall tenderness. ABD: Abdomen is soft and nontender. There is no guarding or rebound. Bowel sounds are normal in all 4 quadrants. There is no mass or organomegaly. EXT: Full painless ROM of all extremities with no loss of sensation or strength. SKIN: Warm, pink, and dry. No erythema or rash Initial Vital Signs Initial Vital Signs: Vital Signs Temperature 99.1 F 04/05/18 22:40 Pulse Rate 106 H 04/05/18 22:40 Respiratory Rate 16 04/05/18 22:40 Blood Pressure 164/95 H 04/05/18 22:40 Pulse Oximetry 98 04/05/18 22:40 Course Orders Ordered: ED Orders 04/06/18 03:00 Urine Microscopic Stat Discontinued Medications Al Hydrox/Mg Hydrox/Simethicone 20 ml/ Lidocaine HCl 15 ml 0 ml PO NOW ONE Stop: 04/06/18 02:46 Last Admin: 04/06/18 02:54 Dose: 35 ml Vital Signs - 8 hr 04/05/18 22:40 Temperature 99.1 F Pulse Rate 106 H Respiratory Rate 16 Blood Pressure 164/95 H Pulse Oximetry 98 MDM - Abdominal Pain Lab Data Lab Results 04/06/18 Range/Units 03:00 Urine RBC 0-1/hpf (0-5/HPF) Urine WBC 0-1/hpf (0-5/HPF) Ur Squamous Epith Cells 1-5 /hpf Urine Bacteria None seen (None) Ur Culture Indicated? Cult not indicated Micro UA Comment Not Reportable Point of care testing: Urine Dip Bedside Urine Glucose Negative Bedside Urine Bilirubin - Negative Bedside Urine Ketone - Negative Urine Specific [place] 1.015 Bedside Urine Occult Blood +/- Bedside Urine Protein - Negative Bedside Urine Urobilinogen - Negative Bedside Urine Nitrite - Negative Bedside Urine Leukocytes - Negative Esterase Discharge Plan Departure Patient Disposition: Home Clinical Impression: Abdominal pain Instructions: DI for Abdominal Pain-Adult Activity Restrictions/Additional Instructions: *You have been diagnosed with [chronic abdominal pain and cramping ] *What to do: * continue to Take medications as directed *Follow up with your primary care provider in 2-3 days, call for an appointment. Let them know you were seen in the Emergency Department and that we ask that you be seen in follow up *Return to ER if you should have any new, worsening or concerning symptoms Prescriptions: No Action CALCIUM CARBONATE 500 mg PO Q DAY Qty: 0 RF: 0 MULTIVITAMIN (#MULTIPLE VITAMINS) bottle 1 cap PO 4-6XD Qty: 0 RF: 0 ACETAMINOPHEN 650 mg PO Q4HP Qty: 0 RF: 0 lisinopril [Zestril] 40 MG tablet 40 mg PO QDAY Qty: 90 RF: 3 triamcinolone acetonide 0.1 % cream Topical SEE INSTRUCTIONS Qty: 80 RF: 0 lorazepam [Ativan] 0.5 mg tablet 0.5 mg PO .COMPLEX Qty: 90 RF: 0 magnesium hydroxide [Milk of Magnesia] 400 mg/5 mL suspension 30 ml PO BEDTIME PRNRF: 0 chlordiazepoxide-clidinium [Librax (with clidinium)] 5-2.5 mg capsule 1 cap PO QDAY Qty: 30 RF: 3 hyoscyamine sulfate 0.125 MG tablet 0.125 mg PO/SL Q2H PRN (Reason: Abdominal Discomfort) RF: 0 Referrals: Brain Gomez MD [Primary Care Provider] -
[2018-04-06 03:13] LABS: Bacteria Urine None Seen
[2018-04-06 03:25] LABS: RBC Urine 0-1/HPF (0-5/HPF); Squamous Epithelial Cell Urine 1-5 /HPF; WBC Urine 0-1/HPF (0-5/HPF)
[2018-04-06 03:26] LABS: Culture Indicated Urine Cult Not Indicated
[2018-04-06 04:33] VITALS: BP 130/80; PULSE 80; RESP 20; O2SAT 98
== END 2018-04-06 04:10 | disposition home or self-care (01) ==
PROVIDERS: Emergency Provider Emergency Medicine; Family Provider Internal Medicine; PCP Internal Medicine
DX: R10.9 Unspecified abdominal pain (principal)
CPT/HCPCS: 81003; 81015; 99282

== ENCOUNTER 2018-10-14 13:17 | Emergency (ER) | payer MEDICARE, OTHER, SELFPAY ==
[2018-10-14 13:19] VITALS: BP 178/91; PULSE 96; RESP 18; TEMP 37.2; O2SAT 98
--- NOTE | 2018-10-14 14:41 | ED_ITS ---
HPI - Abdominal Pain General Chief Complaint: Abdominal Pain Stated Complaint: CRAMPS Time Seen by Provider: 10/14/18 14:33 Source: patient Mode of arrival: ambulatory Limitations: no limitations History of Present Illness HPI narrative: Patient is a 83-year-old female who presents with abdominal cramping. She has a history of irritable bowel syndrome and diverticulitis. She usually takes Bentyl when she has a cramp however today she had 1 in it did not help. She has no diarrhea no vomiting no fever is feeling slightly better now. MD complaint: abdominal pain Related Data Home Medications Medication Instructions Recorded Confirmed CALCIUM CARBONATE 500 mg PO Q DAY #0 02/24/11 08/14/18 MULTIVITAMIN (#MULTIPLE VITAMINS) 1 cap PO 4-6XD #0 02/24/11 08/14/18 ACETAMINOPHEN 650 mg PO Q4HP #0 08/17/12 08/14/18 Previous Rx's Medication Instructions Recorded triamcinolone acetonide 0 gm TOPICAL SEE INSTRUCTIONS #80 11/13/17 gm lorazepam 0.5 mg tablet 0.5 mg PO .COMPLEX #90 tab 02/21/18 lisinopril 40 mg tablet 40 mg PO QDAY #90 tab 04/10/18 chlordiazepoxide-clidinium 5 1 cap PO QDAY #30 cap 05/02/18 mg-2.5 mg capsule hyoscyamine sulfate 0.125 mg tablet 0.125 mg SL Q2H PRN #45 tab 05/29/18 dicyclomine 20 mg tablet 20 mg PO QID PRN #90 tab 08/14/18 Allergies Allergy/AdvReac Type Severity Reaction Status Date / Time levofloxacin [From LEVAQUIN] AdvReac Unknown dizziness, Verified 08/14/18 15:22 not sure if related or not...08/30/16 Review of Systems Review of Systems GENERAL: Denies chills, fatigue, malaise, fever, sweats, travel HEENT: Denies sinus pain, ear pain, sore throat, difficulty swallowing, neck pain RESPIRATORY: Denies dyspnea, cough, wheezing, hemoptysis, sputum. CARDIOVASCULAR: Denies chest pain, palpitations, orthopnea, edema GASTROINTESTINAL: See HPI : Denies dysuria, frequency, incontinence, hematuria, urinary retention, flank pain. MUSCULOSKELETAL: Denies weakness, joint pain, or bony pain SKIN: No rash, no erythema, no pruritus NEUROLOGIC: Denies weakness, dizziness, headache, numbness, change in speech, confusion PSYCHIATRIC: No concerning psychosocial issues. 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 Occasional drinking.) substance use type: does not use Exam Initial Vital Signs Initial Vital Signs: Vital Signs Temperature 99.0 F 10/14/18 13:19 Pulse Rate 96 H 10/14/18 13:19 Respiratory Rate 18 10/14/18 13:19 Blood Pressure 178/91 H 10/14/18 13:19 Pulse Oximetry 98 10/14/18 13:19 GENERAL: Thin elderly female in no distress HEENT: Head atraumatic,EOMI, pupils reactive, CARDIOVASCULAR: Regular rate and rhythm without murmurs, rubs or gallops. RESPIRATORY: Breath sounds equal bilaterally, no wheezes rales or rhonchi. ABDOMEN: Soft, nontender. Normoactive bowel sounds all 4 quadrants. No guarding or rebound. : No CVA tenderness EXTREMITIES: Normal range of motion, no clubbing or edema. Neurovascularly intact NEUROLOGICAL: Alert and oriented x4.Normal gait and speech. SKIN: Warm, dry, no laceration, no petechiae, no rashes or lesions. Course Orders Ordered: ED Orders 10/14/18 15:05 Complete Blood Count AUTO DIFF Stat Comprehensive Metabolic Panel Stat Lipase Stat Discontinued Medications Acetaminophen (Tylenol) 975 mg PO NOW ONE Stop: 10/14/18 14:38 Last Admin: 10/14/18 14:57 Dose: 975 mg Vital Signs - 8 hr 10/14/18 13:19 10/14/18 16:13 Temperature 99.0 F Pulse Rate 96 H 63 Respiratory Rate 18 20 Blood Pressure 178/91 H 142/78 H Pulse Oximetry 98 96 MDM - Abdominal Pain Lab Data Result diagrams: 10/14/18 15:05 10/14/18 15:05 Lab Results 10/14/18 10/14/18 Range/Units 15:05 15:05 WBC 11.6 H (4.5-11.0) X10^3/uL RBC 4.71 (4.0-5.2) X10^6/uL Hgb 13.4 (12.0-16.0) g/dL Hct 40.5 (36-46) % MCV 85.9 (80-100) fL MCH 28.4 (26-34) PG MCHC 33.0 (30-36) % RDW 15.0 H (11.6-14.8) % Plt Count 266 (150-400) X10^3/uL Neut % (Auto) 77.2 H (50-75) % Lymph % (Auto) 5.8 L (25-40) % [place] % (Auto) 15.9 H (3-14) % Eos % (Auto) 0.4 L (2-4) % Baso % (Auto) 0.7 (0-2) % Neut # (Auto) 9000 H (0436-0753) /uL Lymph # (Auto) 700 L (5429-1917) /uL [place] # (Auto) 1800 H (0-900) /uL Eos # (Auto) 0 (0-450) /uL Baso # (Auto) 100 (0-100) /uL Sodium 131 L (137-145) mmol/L Potassium 4.5 (3.4-5.1) mmol/L Chloride 96 L (98-107) mmol/L Carbon Dioxide 26 (22-32) mmol/L BUN 7 (7-17) mg/dL Creatinine 0.60 (0.52-1.04) mg/dL Estimated GFR > 60.0 (>60) mL/min BUN/Creatinine Ratio 11.7 (6-22) Glucose 107 (80-110) mg/dL Calcium 9.4 (8.4-10.2) mg/dL Total Bilirubin 0.8 (0.2-1.3) mg/dL AST 18 (14-36) IU/L ALT 18 (9-52) IU/L Alkaline Phosphatase 79 (38-126) U/L Total Protein 7.7 (6.3-8.2) g/dL Albumin 4.3 (3.5-5.0) g/dL Globulin 3.4 (1.7-4.1) g/dL Albumin/Globulin Ratio 1.3 (1.0-2.8) Lipase 56 (23-300) U/L MDM Narrative Medical decision making narrative: 4:00 p.m. abdomen is reexamined soft nontender nondistended. Tylenol helped with her pain. This time she has mild leukocytosis however she is pain-free at this time I recommend outpatient followup no imaging indicated for now. She really appears nontoxic not in pain exam confirms this. Discharge Plan Departure Patient Disposition: Home Clinical Impression: Irritable bowel syndrome without diarrhea Discharge Date/Time: 10/14/18 16:13 Interventions: ED Discharge Assessment Last Done: 10/14/18 16:13 Instructions: Irritable Bowel Syndrome Activity Restrictions/Additional Instructions: *You have been diagnosed with irritable bowel syndrome *What to do: At this time no CT scan was done your pain is better after Tylenol. If pain is worsening you should return to the ED for a possible CT scan *Continue to take medications as directed Tylenol 650 mg every 4-6 hours if needed for pain *Follow up with your primary care provider in 2-3 days *Return to ER if you should have increasing pain, diarrhea, vomiting, fever or any new, worsening or concerning symptoms Prescriptions: No Action CALCIUM CARBONATE 500 mg PO Q DAY Qty: 0 RF: 0 MULTIVITAMIN (#MULTIPLE VITAMINS) bottle 1 cap PO 4-6XD Qty: 0 RF: 0 ACETAMINOPHEN 650 mg PO Q4HP Qty: 0 RF: 0 triamcinolone acetonide 0.1 % cream Topical SEE INSTRUCTIONS Qty: 80 RF: 0 lorazepam [Ativan] 0.5 mg tablet 0.5 mg PO .COMPLEX Qty: 90 RF: 0 lisinopril [Zestril] 40 mg tablet 40 mg PO QDAY Qty: 90 RF: 3 chlordiazepoxide-clidinium [Librax (with clidinium)] 5-2.5 mg capsule 1 cap PO QDAY Qty: 30 RF: 3 hyoscyamine sulfate 0.125 mg tablet 0.125 mg SL Q2H PRN (Reason: Abdominal Discomfort) Qty: 45 RF: 11 dicyclomine 20 mg tablet 20 mg PO QID PRN (Reason: stomach cramps) Qty: 90 RF: 2 Referrals: Brain Gomez MD [Primary Care Provider] -
[2018-10-14] MEDS: ACETAMINOPHEN 325 MG TABLET 975 MG PO (14:57)
[2018-10-14 15:11] LABS: Add Manual Diff / Slide Review NO; Basophils Absolute Auto 100 /uL (0-100); Basophils Percent Auto 0.7 % (0-2); Eosinophils Absolute Auto 0 /uL (0-450); Eosinophils Percent Auto 0.4 % (2-4); Hematocrit 40.5 % (36-46); Hemoglobin 13.4 g/dL (12.0-16.0); Lymphocytes Absolute Auto 700 /uL (1100-4500); Lymphocytes Percent Auto 5.8 % (25-40); Mean Corpuscular Hemoglobin 28.4 PG (26-34); Mean Corpuscular Volume 85.9 fL (80-100); Monocytes Absolute Auto 1800 /uL (0-900); Monocytes Percent Auto 15.9 % (3-14); Neutrophils Absolute Auto 9000 /uL (1500-7000); Neutrophils Percent Auto 77.2 % (50-75); Platelet Count 266 X10^3/uL (150-400); Red Blood Cell Count 4.71 X10^6/uL (4.0-5.2); White Blood Cell Count 11.6 X10^3/uL (4.5-11.0)
[2018-10-14 15:21] LABS: Alanine Aminotransferase 18 IU/L (9-52); Albumin 4.3 g/dL (3.5-5.0); Albumin Globulin Ratio 1.3 (1.0-2.8); Alkaline Phosphatase 79 U/L (38-126); Aspartate Aminotransferase 18 IU/L (14-36); BUN Creatinine Ratio 11.7 (6-22); Bilirubin Total 0.8 mg/dL (0.2-1.3); Blood Urea Nitrogen 7 mg/dL (7-17); Calcium 9.4 mg/dL (8.4-10.2); Carbon Dioxide 26 mmol/L (22-32); Chloride 96 mmol/L (98-107); Estimated Glomerular Filt Rate > 60.0 mL/min (>60); Globulin 3.4 g/dL (1.7-4.1); Glucose 107 mg/dL (80-110); HEMOLYSIS < 15 (0-50); Lipase 56 U/L (23-300); Potassium 4.5 mmol/L (3.4-5.1); Sodium 131 mmol/L (137-145); Total Protein 7.7 g/dL (6.3-8.2)
[2018-10-14 16:13] VITALS: BP 142/78; PULSE 63; RESP 20; O2SAT 96
== END 2018-10-14 16:13 | disposition home or self-care (01) ==
PROVIDERS: Emergency Provider Emergency Medicine; Family Provider Internal Medicine; PCP Internal Medicine
DX: K58.9 Irritable bowel syndrome, unspecified (principal)
CPT/HCPCS: 36415; 80053; 83690; 85025; 99282; 99283

== ENCOUNTER 2018-10-17 07:01 | Emergency (ER) | payer MEDICARE, OTHER, SELFPAY ==
[2018-10-17 07:11] VITALS: BP 168/77; PULSE 81; RESP 16; TEMP 36.7; O2SAT 100; BMI 21.0
[2018-10-17 07:43] LABS: Bacteria Urine Few (2-10); Culture Indicated Urine Cult Not Indicated; Hyaline Casts Urine 1-5/LPF; Mucus Urine 1+ (Negative); RBC Urine 1-5/HPF (0-5/HPF); Squamous Epithelial Cell Urine 0-1 /HPF; WBC Urine 1-5/HPF (0-5/HPF)
--- NOTE | 2018-10-17 07:43 | ED_ITS ---
HPI - Abdominal Pain General Chief Complaint: Abdominal Pain Stated Complaint: CRAMPS BACK & LOWER ABDOMEN Time Seen by Provider: 10/17/18 07:26 Source: patient Mode of arrival: ambulatory Limitations: no limitations History of Present Illness HPI narrative: The patient is an 83-year-old female who presents for abdominal pain. She was seen evaluated here October 14, just 3 days ago for the same. At that time no imaging was done. She does have IBS. Now she is complaining more right upper quadrant pain radiating to her back. No shoulder pain. No nausea or vomiting. She also has some lower abdominal pain as well. She has been taking Tylenol and Bentyl and Gas-X she says nothing seems to be helping. She has no diarrhea no fever. She states this is not her typical abdominal discomfort. MD complaint: abdominal pain Pain Consistency: constant Severity: moderate Radiation: RUQ and R flank Migration to: no migration Related Data Home Medications Medication Instructions Recorded Confirmed CALCIUM CARBONATE 500 mg PO Q DAY #0 02/24/11 08/14/18 MULTIVITAMIN (#MULTIPLE VITAMINS) 1 cap PO 4-6XD #0 02/24/11 08/14/18 ACETAMINOPHEN 650 mg PO Q4HP #0 08/17/12 08/14/18 Previous Rx's Medication Instructions Recorded triamcinolone acetonide 0 gm TOPICAL SEE INSTRUCTIONS #80 11/13/17 gm lorazepam 0.5 mg tablet 0.5 mg PO .COMPLEX #90 tab 02/21/18 lisinopril 40 mg tablet 40 mg PO QDAY #90 tab 04/10/18 chlordiazepoxide-clidinium 5 1 cap PO QDAY #30 cap 05/02/18 mg-2.5 mg capsule hyoscyamine sulfate 0.125 mg tablet 0.125 mg SL Q2H PRN #45 tab 05/29/18 dicyclomine 20 mg tablet 20 mg PO QID PRN #90 tab 08/14/18 amoxicillin-pot clavulanate 1 tab PO BID #20 tab 10/17/18 [Augmentin] Allergies Allergy/AdvReac Type Severity Reaction Status Date / Time levofloxacin [From LEVAQUIN] AdvReac Unknown dizziness, Verified 10/17/18 07:11 not sure if related or not...08/30/16 Review of Systems Review of Systems ROS Unobtainable: All systems reviewed & are unremarkable except as noted in HPI and below Constitutional Denies chills, Denies fever(s), Denies lethargy and Denies weakness Eyes Denies change in vision, Denies eye discharge, Denies irritation and Denies loss of vision Cardiovascular Denies chest pain, Denies irregular heart rhythm, Denies lightheadedness, Denies palpitations, Denies dyspnea, Denies dyspnea on exertion and Denies orthopnea Respiratory Denies cough, Denies dyspnea, Denies dyspnea on exertion and Denies wheezing Gastrointestinal Gastrointestinal: Reports as per HPI Genitourinary Denies hematuria, Denies flank pain, Denies urinary incontinence and Denies urinary urgency Musculoskeletal Denies back pain, Denies muscle weakness, Denies numbness and Denies tingling Integumentary/Breasts Denies pruritus, Denies erythema, Denies rash and Denies wounds Neurologic Denies loss of vision, Denies numbness, Denies tingling and Denies weakness Endocrine Denies palpitations Allergic/Immunologic Denies wheezing [facility] Medical History Anxiety (Chronic 09/16/13) Irritable bowel syndrome without diarrhea (Chronic 05/28/15) Abdominal pain (Chronic) Essential hypertension (Chronic 02/24/11) Mixed hyperlipidemia (Chronic 02/24/11) Irritable bowel syndrome with diarrhea (Chronic 09/13/16) Diverticulosis of large intestine (Chronic) Lung nodule seen on imaging study (Chronic 10/03/12) Osteoporosis (Chronic 02/24/11) History of adenomatous polyp of colon (Chronic) Surgical History H/O colonoscopy (Resolved) History of appendectomy (Resolved) History of foot surgery (Resolved) Social History marital status: number of children: 1 () household members: friend(s) lives independently: Yes caregiver/support person: Yes (Step daughter) housing: apartment (4 plex) pets and animals: No education level: high school occupational status: other (Retired) 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 Occasional drinking.) substance use type: does not use Exam Initial Vital Signs Initial Vital Signs: Vital Signs Temperature 98.0 F 10/17/18 07:11 Pulse Rate 81 10/17/18 07:11 Respiratory Rate 16 10/17/18 07:11 Blood Pressure 168/77 H 10/17/18 07:11 Pulse Oximetry 100 10/17/18 07:11 GENERAL: A thin well-appearing elderly female and in [no acute] distress. HEENT: Head atraumatic,EOMI, pupils reactive, face symmetric CARDIOVASCULAR: Regular rate and rhythm without murmurs, rubs or gallops. RESPIRATORY: Breath sounds equal bilaterally, no wheezes rales or rhonchi. ABDOMEN: Soft mild tenderness right upper urine no guarding or rebound some mild lower abdominal pain no guarding or rebound normal bowel sounds : No CVA tenderness EXTREMITIES: Normal range of motion, no clubbing or edema. Neurovascularly intact NEUROLOGICAL: Alert and oriented x4.Normal gait and speech. Cranial nerves II through XII grossly intact. SKIN: Warm, dry, no laceration, no petechiae, no rashes or lesions. Course Orders Ordered: ED Orders 10/17/18 07:30 Urine Microscopic Stat 10/17/18 07:40 Acetaminophen Stat Complete Blood Count AUTO DIFF Stat Comprehensive Metabolic Panel Stat Lipase Stat 10/17/18 08:05 US abdomen complete Stat 10/17/18 09:04 CT abdomen pelvis w con Stat Discontinued Medications Sodium Chloride (Normal Saline 0.9%) 1,000 mls @ 150 mls/hr IV CONT YUSUF Last Infusion: 10/17/18 10:16 Dose: 0 mls/hr Admin: 10/17/18 07:51 Dose: 150 mls/hr Vital Signs - 8 hr 10/17/18 07:11 10/17/18 08:00 10/17/18 09:00 Temperature 98.0 F Pulse Rate 81 80 73 Respiratory Rate 16 15 15 Blood Pressure 168/77 H Blood Pressure [Left Arm] 156/77 H 169/72 H Pulse Oximetry 100 100 99 MDM - Abdominal Pain Lab Data Attestation: I reviewed the patient's lab results. Result diagrams: 10/17/18 07:40 10/17/18 07:40 Lab Results 10/17/18 10/17/18 10/17/18 Range/Units 07:30 07:40 07:40 WBC 5.8 (4.5-11.0) X10^3/uL RBC 4.52 (4.0-5.2) X10^6/uL Hgb 12.9 (12.0-16.0) g/dL Hct 38.4 (36-46) % MCV 85.0 (80-100) fL MCH 28.6 (26-34) PG MCHC 33.7 (30-36) % RDW 14.8 (11.6-14.8) % Plt Count 266 (150-400) X10^3/uL Neut % (Auto) 68.0 (50-75) % Lymph % (Auto) 11.3 L (25-40) % Hayes % (Auto) 17.7 H (3-14) % Eos % (Auto) 1.8 L (2-4) % Baso % (Auto) 1.2 (0-2) % Neut # (Auto) 4000 (9190-1688) /uL Lymph # (Auto) 700 L (0417-2837) /uL Hayes # (Auto) 1000 H (0-900) /uL Eos # (Auto) 100 (0-450) /uL Baso # (Auto) 100 (0-100) /uL Sodium 132 L (137-145) mmol/L Potassium 4.0 (3.4-5.1) mmol/L Chloride 97 L (98-107) mmol/L Carbon Dioxide 26 (22-32) mmol/L BUN 10 (7-17) mg/dL Creatinine 0.60 (0.52-1.04) mg/dL Estimated GFR > 60.0 (>60) mL/min BUN/Creatinine Ratio 16.7 (6-22) Glucose 102 (80-110) mg/dL Calcium 9.6 (8.4-10.2) mg/dL Total Bilirubin 0.3 (0.2-1.3) mg/dL AST 19 (14-36) IU/L ALT 18 (9-52) IU/L Alkaline Phosphatase 78 (38-126) U/L Total Protein 7.7 (6.3-8.2) g/dL Albumin 4.1 (3.5-5.0) g/dL Globulin 3.6 (1.7-4.1) g/dL Albumin/Globulin Ratio 1.1 (1.0-2.8) Lipase 87 D (23-300) U/L Urine RBC 1-5/hpf (0-5/HPF) Urine WBC 1-5/hpf (0-5/HPF) Ur Squamous Epith Cells 0-1 /hpf Urine Bacteria Few (2-10) H (None) Hyaline Casts 1-5/lpf (None) Urine Mucus 1+ H (Negative) Ur Culture Indicated? Cult not indicated Acetaminophen (10-30) ug/mL 10/17/18 Range/Units 07:40 WBC (4.5-11.0) X10^3/uL RBC (4.0-5.2) X10^6/uL Hgb (12.0-16.0) g/dL Hct (36-46) % MCV (80-100) fL MCH (26-34) PG MCHC (30-36) % RDW (11.6-14.8) % Plt Count (150-400) X10^3/uL Neut % (Auto) (50-75) % Lymph % (Auto) (25-40) % Hayes % (Auto) (3-14) % Eos % (Auto) (2-4) % Baso % (Auto) (0-2) % Neut # (Auto) (3346-6474) /uL Lymph # (Auto) (0575-2807) /uL Hayes # (Auto) (0-900) /uL Eos # (Auto) (0-450) /uL Baso # (Auto) (0-100) /uL Sodium (137-145) mmol/L Potassium (3.4-5.1) mmol/L Chloride (98-107) mmol/L Carbon Dioxide (22-32) mmol/L BUN (7-17) mg/dL Creatinine (0.52-1.04) mg/dL Estimated GFR (>60) mL/min BUN/Creatinine Ratio (6-22) Glucose (80-110) mg/dL Calcium (8.4-10.2) mg/dL Total Bilirubin (0.2-1.3) mg/dL AST (14-36) IU/L ALT (9-52) IU/L Alkaline Phosphatase (38-126) U/L Total Protein (6.3-8.2) g/dL Albumin (3.5-5.0) g/dL Globulin (1.7-4.1) g/dL Albumin/Globulin Ratio (1.0-2.8) Lipase (23-300) U/L Urine RBC (0-5/HPF) Urine WBC (0-5/HPF) Ur Squamous Epith Cells Urine Bacteria (None) Hyaline Casts (None) Urine Mucus (Negative) Ur Culture Indicated? Acetaminophen < 10 L (10-30) ug/mL Point of care testing: Urine Dip Bedside Urine Glucose Negative Bedside Urine Bilirubin - Negative Bedside Urine Ketone +/- 5 Urine Specific [place] 1.015 Bedside Urine Occult Blood +/- Bedside Urine pH 6.5 Bedside Urine Protein +/- 15 Bedside Urine Urobilinogen - Negative Bedside Urine Nitrite - Negative Bedside Urine Leukocytes +/- 15 Esterase Imaging Data US - abdomen: Radiologist's impression: PROCEDURE: US ABDOMEN COMPLETE INDICATIONS: RIGHT UPPER QUADRANT PAIN TECHNIQUE: Real-time scanning was performed of the abdominal and retroperitoneal organs, with image documentation. COMPARISON: [facility], US, ABDOMEN COMPLETE, 02/08/2017, 8:41. FINDINGS: Liver: Liver is normal in size and homogeneous in echotexture. Gallbladder: There is a 2 mm anterior wall polyp along the gallbladder margin. No inflammation of the gallbladder suspected and no stone is found. Biliary ducts: Intrahepatic bile ducts are non-dilated. Extrahepatic bile duct caliber measures 4-5 mm. Normal is 6-7 mm or less in diameter, or 10 mm or less post-cholecystectomy. Pancreas: Visualized portions of the pancreas are sonographically normal. Spleen: Spleen is normal in size and homogeneous in echotexture. Kidneys: Kidneys are normal in size and echotexture. Right kidney measures 9.9 cm long; left kidney measures 11.5 cm long. No hydronephrosis or nephrolithiasis. No solid masses. Aorta: Visualized aorta is normal in caliber at less than 3 cm. Iliacs: Proximal common iliac arteries are normal in caliber at less than 2.5 cm. IVC: Intrahepatic inferior vena cava is patent. Miscellaneous: No free abdominal fluid. IMPRESSION: Normal abdominal ultrasound except for incidental finding of a 2 mm anterior wall gallbladder mucosal polyp, source of current symptoms is not seen. Dictated by: Del Coyne M.D. on 10/17/2018 at 9:19 CT scan - abdomen: Radiologist's impression: PROCEDURE: CT ABDOMEN PELVIS W CON INDICATIONS: lower abdominal pain TECHNIQUE: After the administration of oral and intravenous contrast, 5 mm thick sections acquired from the diaphragms to the symphysis. 5 mm thick coronal and sagittal reformats were performed. For radiation dose reduction, the following was used: automated exposure control, adjustment of mA and/or kV according to patient size. COMPARISON: [facility], CT, CT ABDOMEN PELVIS W CON, 03/13/2018, 4:56. [facility], CT, THORAX WITHOUT CONTRAST, 10/03/2012, 9:00. [facility], CT, ABDOMEN/PELVIS WITH CONTRAST, 05/08/2016, 9:32. [facility], US, US ABDOMEN COMPLETE, 10/17/2018, 7:48. [facility], CT, CT ABDOMEN PELVIS W CON, 03/24/2018, 9:14. FINDINGS: Image quality: Excellent. ABDOMEN: Lung bases: There is mild bibasilar dependent atelectasis. A small subpleural nodule anteriorly in the right middle lobe measuring approximately 5 mm appears unchanged compared to the 10/03/12 study. Heart size is normal. Solid organs: Evaluation of the liver demonstrates no focal hepatic lesions. Gallbladder appears within normal limits without calcified gallstones. Biliary system is non-dilated. Pancreas enhances normally without peripancreatic fat stranding or fluid collections. Pancreatic duct is normal in caliber. Spleen is normal in size and enhancement. No adrenal nodules. Kidneys demonstrate no hydronephrosis. There are areas of focal cortical thinning in the right kidney consistent with sequela of prior trauma, infarct, or infection. Peritoneum and bowel: Stomach and small bowel loops are normal in caliber and wall thickness. The appendix is not discretely identified but there is no definite evidence of appendicitis. There is extensive diverticulosis throughout the colon with associated mild inflammatory fat stranding in the lower abdomen along the sigmoid colon with mild colonic wall thickening compatible with acute diverticulitis. No macroscopic free air. No associated free fluid or diverticular abscess. Nodes and vessels: No retroperitoneal or mesenteric adenopathy. Aorta and inferior vena cava are normal in caliber. Miscellaneous: No ventral hernias. PELVIS: Genitourinary: Bladder wall thickness is normal. Miscellaneous: No inguinal hernias or adenopathy. Bones: No suspicious bony lesions. No vertebral body compression fractures. IMPRESSION: 1. Extensive colonic diverticulosis with mild acute diverticulitis in the sigmoid colon. No evidence of macroscopic free air or diverticular abscess. 2. No definite evidence of appendicitis. Dictated by: Pawel Zacarias M.D. on 10/17/2018 at 9:42 MDM Narrative Medical decision making narrative: Patient overall is feeling better. Leukocyto sis from a couple days ago has not improved. CT does show some mild diverticulitis. She has previously been on Augmentin for her diverticulitis she is unable to take fluoroquinolones. Will put her back on Augmentin and hopefully she improves. Discharge Plan Departure Patient Disposition: Home Clinical Impression: Diverticulitis Discharge Date/Time: 10/17/18 10:21 Interventions: ED Discharge Assessment Last Done: 10/17/18 10:17 Instructions: Diverticulitis Activity Restrictions/Additional Instructions: *You have been diagnosed with mild diverticulitis *What to do: Increase fluid intake *Continue to take medications as directed Augmentin twice daily for 10 days--> sent to a [facility] *Follow up with your primary care provider in 2-3 days *Return to ER if you should have increasing pain persistent vomiting or any new, worsening or concerning symptoms Prescriptions: New amoxicillin-pot clavulanate [Augmentin] 875-125 mg tablet 1 tab PO BID Qty: 20 RF: 0 No Action CALCIUM CARBONATE 500 mg PO Q DAY Qty: 0 RF: 0 MULTIVITAMIN (#MULTIPLE VITAMINS) bottle 1 cap PO 4-6XD Qty: 0 RF: 0 ACETAMINOPHEN 650 mg PO Q4HP Qty: 0 RF: 0 triamcinolone acetonide 0.1 % cream Topical SEE INSTRUCTIONS Qty: 80 RF: 0 lorazepam [Ativan] 0.5 mg tablet 0.5 mg PO .COMPLEX Qty: 90 RF: 0 lisinopril [Zestril] 40 mg tablet 40 mg PO QDAY Qty: 90 RF: 3 chlordiazepoxide-clidinium [Librax (with clidinium)] 5-2.5 mg capsule 1 cap PO QDAY Qty: 30 RF: 3 hyoscyamine sulfate 0.125 mg tablet 0.125 mg SL Q2H PRN (Reason: Abdominal Discomfort) Qty: 45 RF: 11 dicyclomine 20 mg tablet 20 mg PO QID PRN (Reason: stomach cramps) Qty: 90 RF: 2 Referrals: Brain Gomez MD [Primary Care Provider] -
[2018-10-17] MEDS: SODIUM CHLORIDE 0.9% 1,000 ML 150 ML IV (07:51)
[2018-10-17 07:52] LABS: Add Manual Diff / Slide Review NO; Basophils Absolute Auto 100 /uL (0-100); Basophils Percent Auto 1.2 % (0-2); Eosinophils Absolute Auto 100 /uL (0-450); Eosinophils Percent Auto 1.8 % (2-4); Hematocrit 38.4 % (36-46); Hemoglobin 12.9 g/dL (12.0-16.0); Lymphocytes Absolute Auto 700 /uL (1100-4500); Lymphocytes Percent Auto 11.3 % (25-40); Mean Corpuscular HGB Conc 33.7 % (30-36); Mean Corpuscular Hemoglobin 28.6 PG (26-34); Monocytes Absolute Auto 1000 /uL (0-900); Monocytes Percent Auto 17.7 % (3-14); Neutrophils Absolute Auto 4000 /uL (1500-7000); Platelet Count 266 X10^3/uL (150-400); Red Blood Cell Count 4.52 X10^6/uL (4.0-5.2); Red Cell Distribution Width 14.8 % (11.6-14.8); White Blood Cell Count 5.8 X10^3/uL (4.5-11.0)
[2018-10-17 08:00] VITALS: BP 156/77; PULSE 80; RESP 15; O2SAT 100
[2018-10-17 08:04] LABS: Acetaminophen < 10 ug/mL (10-30); Alanine Aminotransferase 18 IU/L (9-52); Albumin 4.1 g/dL (3.5-5.0); Albumin Globulin Ratio 1.1 (1.0-2.8); Alkaline Phosphatase 78 U/L (38-126); Aspartate Aminotransferase 19 IU/L (14-36); BUN Creatinine Ratio 16.7 (6-22); Bilirubin Total 0.3 mg/dL (0.2-1.3); Blood Urea Nitrogen 10 mg/dL (7-17); Calcium 9.6 mg/dL (8.4-10.2); Carbon Dioxide 26 mmol/L (22-32); Chloride 97 mmol/L (98-107); Estimated Glomerular Filt Rate > 60.0 mL/min (>60); Globulin 3.6 g/dL (1.7-4.1); Glucose 102 mg/dL (80-110); HEMOLYSIS < 15 (0-50); Lipase 87 U/L (23-300); Sodium 132 mmol/L (137-145); Total Protein 7.7 g/dL (6.3-8.2)
--- NOTE | 2018-10-17 08:05 | DI.US.S_ITS ---
PROCEDURE: US ABDOMEN COMPLETE INDICATIONS: RIGHT UPPER QUADRANT PAIN TECHNIQUE: Real-time scanning was performed of the abdominal and retroperitoneal organs, with image documentation. COMPARISON: [facility], US, ABDOMEN COMPLETE, 02/08/2017, 8:41. FINDINGS: Liver: Liver is normal in size and homogeneous in echotexture. Gallbladder: There is a 2 mm anterior wall polyp along the gallbladder margin. No inflammation of the gallbladder suspected and no stone is found. Biliary ducts: Intrahepatic bile ducts are non-dilated. Extrahepatic bile duct caliber measures 4-5 mm. Normal is 6-7 mm or less in diameter, or 10 mm or less post-cholecystectomy. Pancreas: Visualized portions of the pancreas are sonographically normal. Spleen: Spleen is normal in size and homogeneous in echotexture. Kidneys: Kidneys are normal in size and echotexture. Right kidney measures 9.9 cm long; left kidney measures 11.5 cm long. No hydronephrosis or nephrolithiasis. No solid masses. Aorta: Visualized aorta is normal in caliber at less than 3 cm. Iliacs: Proximal common iliac arteries are normal in caliber at less than 2.5 cm. IVC: Intrahepatic inferior vena cava is patent. Miscellaneous: No free abdominal fluid. IMPRESSION: Normal abdominal ultrasound except for incidental finding of a 2 mm anterior wall gallbladder mucosal polyp, source of current symptoms is not seen. Dictated by: Del Coyne M.D. on 10/17/2018 at 9:19 Approved by: Del Coyne M.D. on 10/17/2018 at 9:28
[2018-10-17 09:00] VITALS: BP 169/72; PULSE 73; RESP 15; O2SAT 99
--- NOTE | 2018-10-17 09:04 | DI.CT.S_ITS ---
PROCEDURE: CT ABDOMEN PELVIS W CON INDICATIONS: lower abdominal pain TECHNIQUE: After the administration of oral and intravenous contrast, 5 mm thick sections acquired from the diaphragms to the symphysis. 5 mm thick coronal and sagittal reformats were performed. For radiation dose reduction, the following was used: automated exposure control, adjustment of mA and/or kV according to patient size. COMPARISON: [facility], CT, CT ABDOMEN PELVIS W CON, 03/13/2018, 4:56. [facility], CT, THORAX WITHOUT CONTRAST, 10/03/2012, 9:00. [facility], CT, ABDOMEN/PELVIS WITH CONTRAST, 05/08/2016, 9:32. [facility], US, US ABDOMEN COMPLETE, 10/17/2018, 7:48. [facility], CT, CT ABDOMEN PELVIS W CON, 03/24/2018, 9:14. FINDINGS: Image quality: Excellent. ABDOMEN: Lung bases: There is mild bibasilar dependent atelectasis. A small subpleural nodule anteriorly in the right middle lobe measuring approximately 5 mm appears unchanged compared to the 10/03/12 study. Heart size is normal. Solid organs: Evaluation of the liver demonstrates no focal hepatic lesions. Gallbladder appears within normal limits without calcified gallstones. Biliary system is non-dilated. Pancreas enhances normally without peripancreatic fat stranding or fluid collections. Pancreatic duct is normal in caliber. Spleen is normal in size and enhancement. No adrenal nodules. Kidneys demonstrate no hydronephrosis. There are areas of focal cortical thinning in the right kidney consistent with sequela of prior trauma, infarct, or infection. Peritoneum and bowel: Stomach and small bowel loops are normal in caliber and wall thickness. The appendix is not discretely identified but there is no definite evidence of appendicitis. There is extensive diverticulosis throughout the colon with associated mild inflammatory fat stranding in the lower abdomen along the sigmoid colon with mild colonic wall thickening compatible with acute diverticulitis. No macroscopic free air. No associated free fluid or diverticular abscess. Nodes and vessels: No retroperitoneal or mesenteric adenopathy. Aorta and inferior vena cava are normal in caliber. Miscellaneous: No ventral hernias. PELVIS: Genitourinary: Bladder wall thickness is normal. Miscellaneous: No inguinal hernias or adenopathy. Bones: No suspicious bony lesions. No vertebral body compression fractures. IMPRESSION: 1. Extensive colonic diverticulosis with mild acute diverticulitis in the sigmoid colon. No evidence of macroscopic free air or diverticular abscess. 2. No definite evidence of appendicitis. Dictated by: Pawel Zacarias M.D. on 10/17/2018 at 9:42 Approved by: Pawel Zacarias M.D. on 10/17/2018 at 10:00
== END 2018-10-17 10:21 | disposition home or self-care (01) ==
PROVIDERS: Emergency Provider Emergency Medicine; PCP Internal Medicine
DX: K57.92 Diverticulitis of intestine, part unspecified, without perforation or abscess without bleeding (principal)
CPT/HCPCS: 36591; 74177; 76700; 80053; 80329; 81003; 81015; 83690; 85025; 96360; 96361; 99283; 99285; G0480; Q9967

== ENCOUNTER 2018-11-01 07:23 | Emergency (ER) | payer MEDICARE, OTHER, SELFPAY ==
[2018-11-01 07:33] VITALS: BP 157/94; PULSE 89; RESP 16; TEMP 37.1; O2SAT 94; BMI 21.0
[2018-11-01 08:00] VITALS: BP 163/78; PULSE 83; RESP 21; O2SAT 99
--- NOTE | 2018-11-01 08:05 | PC.NURSE ---
pt reports, here due to abdominal distention, gassy, had pea soup last night, just treated with antibiotic for diverticulitis, denies fever and vomiting.
[2018-11-01 08:12] LABS: Add Manual Diff / Slide Review NO; Basophils Absolute Auto 100 /uL (0-100); Basophils Percent Auto 0.7 % (0-2); Eosinophils Absolute Auto 0 /uL (0-450); Eosinophils Percent Auto 0.5 % (2-4); Hematocrit 39.4 % (36-46); Hemoglobin 13.5 g/dL (12.0-16.0); Lymphocytes Absolute Auto 700 /uL (1100-4500); Lymphocytes Percent Auto 7.9 % (25-40); Mean Corpuscular HGB Conc 34.3 % (30-36); Mean Corpuscular Hemoglobin 28.8 PG (26-34); Monocytes Absolute Auto 1200 /uL (0-900); Monocytes Percent Auto 13.8 % (3-14); Neutrophils Absolute Auto 6500 /uL (1500-7000); Neutrophils Percent Auto 77.1 % (50-75); Platelet Count 322 X10^3/uL (150-400); Red Blood Cell Count 4.69 X10^6/uL (4.0-5.2); Red Cell Distribution Width 13.8 % (11.6-14.8); White Blood Cell Count 8.5 X10^3/uL (4.5-11.0)
--- NOTE | 2018-11-01 08:17 | ED.ABDPAIN ---
HPI - Abdominal Pain General Chief Complaint: Abdominal Pain Stated Complaint: Stomach cramps Time Seen by Provider: 11/01/18 08:17 Source: patient and old records reviewed Mode of arrival: ambulatory Limitations: no limitations History of Present Illness HPI narrative: This is an 83-year-old female comes to the emergency department complaint of abdominal pain. Patient states that she was seen here about 2 weeks ago was diagnosed with diverticulitis on the CT scan. She took her antibiotics which were 10 days in total. She states that pain has improved it was on the left lower abdomen. But she has been having abdominal pain sort of in her stomach and she indicates the middle of her belly. She states sort of a cramping feeling and she feels bloated. She finds food makes it worse particularly spicy foods. She denies any fevers, she denies any chest pain, shortness of breath, diaphoresis. She has not had any nausea and/or vomiting. She has not had a bowel movement for about 2 days but has been having normal stools otherwise. She is passing gas. Patient denies any urinary urgency, frequency or dysuria. She has been taking hyoscyamine for the bloating, she tried Tylenol as well as a tablet this morning without any relief. She states she has had an appendectomy. Related Data Home Medications Medication Instructions Recorded Confirmed calcium carbonate [Calcium 500] 500 mg PO DAILY #0 02/24/11 11/01/18 multivitamin 1 tab PO DAILY #0 02/24/11 11/01/18 acetaminophen 650 mg PO Q4HP #0 08/17/12 11/01/18 chlordiazepoxide-clidinium [Librax 1 cap PO DAILY 11/01/18 11/01/18 (with clidinium)] lisinopril [Zestril] 40 mg PO DAILY 11/01/18 11/01/18 lorazepam [Ativan] 0.5 - 1 mg PO Q6H PRN 11/01/18 11/01/18 Previous Rx's Medication Instructions Recorded hyoscyamine sulfate 0.125 mg tablet 0.125 mg SL Q2H PRN #45 tab 05/29/18 dicyclomine 20 mg tablet 20 mg PO QID PRN #90 tab 08/14/18 omeprazole 40 mg PO DAILY #30 cap 11/01/18 Allergies Allergy/AdvReac Type Severity Reaction Status Date / Time levofloxacin [From LEVAQUIN] AdvReac Unknown dizziness, Verified 10/29/18 14:21 not sure if related or not...08/30/16 Review of Systems Review of Systems ROS Unobtainable: All systems reviewed & are unremarkable except as noted in HPI and below Constitutional Denies chills, Denies fever(s), Denies lethargy and Denies weakness Cardiovascular Denies chest pain, Denies diaphoresis, Denies rapid heart rate, Denies edema, Denies dyspnea and Denies dyspnea on exertion Respiratory Denies dyspnea and Denies dyspnea on exertion Gastrointestinal Gastrointestinal: Reports abdominal pain, Denies belching, Reports bloating, Denies change in bowel habits, Reports constipation (No BM x2 days, normal bowel movement before.), Denies diarrhea, Denies nausea and Denies vomiting Genitourinary Denies hematuria, Denies urinary frequency, Denies dysuria, Denies flank pain and Denies urinary urgency Musculoskeletal Denies back pain Neurologic Denies weakness [facility] Medical History (Updated 11/01/18 @ 10:57 by Nasreen Metz DO) Anxiety (Chronic 09/16/13) Irritable bowel syndrome without diarrhea (Chronic 05/28/15) Abdominal pain (Chronic) Essential hypertension (Chronic 02/24/11) Mixed hyperlipidemia (Chronic 02/24/11) Irritable bowel syndrome with diarrhea (Chronic 09/13/16) Diverticulosis of large intestine (Chronic) Lung nodule seen on imaging study (Chronic 10/03/12) Osteoporosis (Chronic 02/24/11) History of adenomatous polyp of colon (Chronic) Surgical History (Updated 11/01/18 @ 08:29 by Nasreen Metz DO) Hx of appendectomy (Chronic) H/O colonoscopy (Resolved) History of appendectomy (Resolved) History of foot surgery (Resolved) Social History marital status: number of children: 1 household members: friend(s) lives independently: Yes caregiver/support person: Yes (Step daughter) housing: apartment pets and animals: No education level: high school occupational status: other 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 hortencia/nondenominational: [employer] leisure activities: music, reading and other Smoking Status: Never smoker Tobacco: How many years used: 0 alcohol intake: current substance use type: does not use Exam Narrative Exam Narrative: GENERAL: Alert and oriented x three, thin, well-appearing female in mild distress. HEENT: Head normocephalic, atraumatic, EOMI, pupils reactive, face symmetric, moist mucous membranes NECK: Supple, full range of motion CARDIOVASCULAR: Regular rate and rhythm without murmurs, rubs or gallops. RESPIRATORY: Breath sounds equal bilaterally, no wheezes rales or rhonchi. ABDOMEN: Soft, positive for right lower quadrant tenderness. Patient describes sort of generalized discomfort as well although only mildly tender. Normoactive bowel sounds all 4 quadrants. No guarding or rebound, rigidity, no mass : No CVA tenderness EXTREMITIES: Normal range of motion, no clubbing or edema. Neurovascularly intact NEUROLOGICAL: Cranial nerves II through XII grossly intact. Moving all extremities SKIN: Warm, dry, no petechiae, no rashes or lesions. Initial Vital Signs Initial Vital Signs: Vital Signs Temperature 98.7 F 11/01/18 07:33 Pulse Rate 89 11/01/18 07:33 Respiratory Rate 16 11/01/18 07:33 Blood Pressure 157/94 H 11/01/18 07:33 Pulse Oximetry 94 11/01/18 07:33 Course Orders Ordered: Discontinued Medications Ketorolac Tromethamine (Toradol) 15 mg IV NOW ONE Stop: 11/01/18 08:27 Last Admin: 11/01/18 09:13 Dose: 15 mg Vital Signs - 8 hr 11/01/18 07:33 11/01/18 08:00 11/01/18 09:00 Temperature 98.7 F Pulse Rate 89 83 88 Respiratory Rate 16 21 19 Blood Pressure 157/94 H Blood Pressure [Right Arm] 163/78 H 165/76 H Pulse Oximetry 94 99 98 11/01/18 09:18 Temperature Pulse Rate 82 Respiratory Rate 21 Blood Pressure Blood Pressure [Right Arm] 165/76 H Pulse Oximetry 98 MDM - Abdominal Pain Lab Data Attestation: I reviewed the patient's lab results. Result diagrams: 11/01/18 07:57 11/01/18 07:57 Lab Results 11/01/18 11/01/18 Range/Units 07:57 07:57 WBC 8.5 (4.5-11.0) X10^3/uL RBC 4.69 (4.0-5.2) X10^6/uL Hgb 13.5 (12.0-16.0) g/dL Hct 39.4 (36-46) % MCV 84.0 (80-100) fL MCH 28.8 (26-34) PG MCHC 34.3 (30-36) % RDW 13.8 (11.6-14.8) % Plt Count 322 (150-400) X10^3/uL Neut % (Auto) 77.1 H (50-75) % Lymph % (Auto) 7.9 L (25-40) % [place] % (Auto) 13.8 (3-14) % Eos % (Auto) 0.5 L (2-4) % Baso % (Auto) 0.7 (0-2) % Neut # (Auto) 6500 (1417-8237) /uL Lymph # (Auto) 700 L (2681-8966) /uL [place] # (Auto) 1200 H (0-900) /uL Eos # (Auto) 0 (0-450) /uL Baso # (Auto) 100 (0-100) /uL Sodium 131 L (137-145) mmol/L Potassium 5.1 (3.4-5.1) mmol/L Chloride 96 L (98-107) mmol/L Carbon Dioxide 24 (22-32) mmol/L BUN 7 (7-17) mg/dL Creatinine 0.50 L (0.52-1.04) mg/dL Estimated GFR > 60.0 (>60) mL/min BUN/Creatinine Ratio 14.0 (6-22) Glucose 96 (80-110) mg/dL Calcium 9.0 (8.4-10.2) mg/dL Total Bilirubin 0.9 (0.2-1.3) mg/dL AST 26 (14-36) IU/L ALT 14 (9-52) IU/L Alkaline Phosphatase 71 (38-126) U/L Total Protein 8.1 (6.3-8.2) g/dL Albumin 4.3 (3.5-5.0) g/dL Globulin 3.8 (1.7-4.1) g/dL Albumin/Globulin Ratio 1.1 (1.0-2.8) Lipase 68 (23-300) U/L Point of care testing: Urine Dip Bedside Urine Glucose Negative Bedside Urine Bilirubin - Negative Bedside Urine Ketone - Negative Urine Specific [place] 1.010 Bedside Urine Occult Blood +/- Bedside Urine pH 7.5 Bedside Urine Protein - Negative Bedside Urine Urobilinogen - Negative Bedside Urine Nitrite - Negative Bedside Urine Leukocytes - Negative Esterase Imaging Data CT scan - abdomen: Radiologist's impression: 78 Nasreen Metz, Find Patient Imaging Mahsa Storey 83 F 1935 ACTIVITY DATE EXAM STATUS AUTHOR 11/01/18 08:26 [place] [address] CT Scan Report Signed Patient: Mahsa Storey MMR#: [id number] : 1935cct:[id number] Age/Sex: 83 / FDate of Service: 11/01/18 Loc: ED Accession Number: [id number] Procedure: CT abdomen pelvis w con Ordering Provider: Nasreen Metz D.O. PROCEDURE: CT ABDOMEN PELVIS W CON INDICATIONS: recent diverticulitis L pain resolved, now pain right lower quad pain TECHNIQUE: After the administration of oral and intravenous contrast, 5 mm thick sections acquired from the diaphragms to the symphysis. 5 mm thick coronal and sagittal reformats were performed. For radiation dose reduction, the following was used: automated exposure control, adjustment of mA and/or kV according to patient size. COMPARISON: [facility], CT, CT ABDOMEN PELVIS W CON, 10/17/2018, 9:21. [facility], CT, CT ABDOMEN PELVIS W CON, 03/13/2018, 4:56. [facility], CT, ABDOMEN/PELVIS WITH CONTRAST, 05/08/2016, 9:32. FINDINGS: Image quality: Diagnostic. ABDOMEN: Lung bases: The measurement bases are clear with the exception of mild scarring versus atelectasis. Heart size is normal. Solid organs: The liver is hypodense when compared to the spleen. The gallbladder is mildly prominent in size. The common bile duct is not dilated. The pancreas and spleen are within normal limits. The adrenals and kidneys also appear to be within normal limits with the exception of extrarenal pelvises. Peritoneum and bowel: There is a small hiatal hernia. The stomach and duodenum are otherwise grossly unremarkable. The small bowel loops are nondilated. There is a large amount of residual stool identified within the distal colon. Severe distal colonic diverticulosis is identified. No definitive evidence to suggest diverticulitis is appreciated. However, the bowel is not well evaluated without oral contrast. There appears to be focal circumferential wall thickening involving the lower portion of the sigmoid colon (image 27, series 3 and image 55, series 2), which was not readily apparent on the exam from 10/17/18. This may represent a focal area of inflammation or peristalsis. Nodes and vessels: No retroperitoneal or mesenteric adenopathy. Aorta and inferior vena cava are normal in caliber. Aortic and iliac artery atherosclerosis is present. Prominent atherosclerotic changes are noted at the origin of the left renal artery, celiac artery, and superior mesenteric artery. Bones: No fractures or suspicious osseous lesions are present. There is moderate degenerative changes of the lower lumbar spine. PELVIS: Genitourinary: Bladder wall thickness is normal. Prominent distention of the bladder is present. Calcification of the uterus probably represents a calcified fibroid. The ovaries are not clearly seen, but do not appear to be significantly dilated. Miscellaneous: No inguinal hernias or adenopathy. Bones: No suspicious bony lesions. Mild to moderate degenerative changes of the bilateral hips and sacroiliac joints are present. IMPRESSION: 1. Probable constipation. No bowel obstruction. 2. Focal wall thickening involving the lower sigmoid colon does not appear to have been present on the previous study and may represent normal peristalsis, a focal area of inflammation/infection, or potentially a neoplasm/mass. Colonoscopy would be helpful for better evaluation, if not already recently performed. 2. Small hiatal hernia. 4. Possible hepatic steatosis. 5. Extensive colonic diverticulosis. Dictated by: Alen Mauro M.D. on 11/01/2018 at 9:02 Approved by: Alen Mauro M.D. on 11/01/2018 at 9:11 MDM Narrative Medical decision making narrative: The patient's CT shows some possible constipation but no bowel obstruction. There is some focal thickening of the lower sigmoid that does not appear to be present on the previous study could be normal peristalsis of versus a focal area of inflammation infection or potentially neoplasm mass. colonoscopy would be helpful if not recently performed, small hiatal hernia, hepatic steatosis and colonic diverticulosis. Discussed with patient her symptoms seem to be a little bit higher up. But also little bit on the right lower side. Discussed that colonoscopy would be appropriate. She has completed her antibiotics, her white count is not elevated today and the rest her labs appear appropriate. Patient and I discussed putting her on some on omeprazole regularly and continuing her other home medications. She states she will try to follow up with Dr. Gomez tomorrow to review everything. She did have a colonoscopy but she does remember exactly when it may have been several years ago. Discharge Plan Departure Patient Disposition: Home Clinical Impression: Abdominal pain, Bowel wall thickening Discharge Date/Time: 11/01/18 11:09 Interventions: ED Discharge Assessment Last Done: 11/01/18 11:09 Instructions: DI for Abdominal Pain-Adult Activity Restrictions/Additional Instructions: Follow[facility]up with [facility] primary care physician in the next 2-3 days for recheck discussed with Dr. Gomez about possibly having a colonoscopy to evaluate your symptoms and the thickening in your bowel wall that was seen on CT today. I do recommend taking omeprazole once daily, it take time up to 1-2 weeks for symptoms to improve. [facility]. Also recommend increasing fiber taking a stool softener. You may continue your home medications as prescribed. Return to the ER for fevers greater than 100.4, worsening abdominal pain, nausea or vomiting, black or bloody stools, if not having any bowel movements or other new or concerning symptoms. Prescriptions: New omeprazole 40 mg capsule,delayed release(DR/EC) 40 mg PO DAILY Qty: 30 RF: 0 No Action multivitamin Tablet 1 tab PO DAILY Qty: 0 RF: 0 calcium carbonate [Calcium 500] 500 mg calcium (1,250 mg) Tablet 500 mg PO DAILY Qty: 0 RF: 0 acetaminophen 650 mg Tablet Extended Release 650 mg PO Q4HP Qty: 0 RF: 0 hyoscyamine sulfate 0.125 mg tablet 0.125 mg SL Q2H PRN (Reason: Abdominal Discomfort) Qty: 45 RF: 11 dicyclomine 20 mg tablet 20 mg PO QID PRN (Reason: stomach cramps) Qty: 90 RF: 2 lorazepam [Ativan] 0.5 mg tablet 0.5 - 1 mg PO Q6H PRN (Reason: Anxiety) RF: 0 chlordiazepoxide-clidinium [Librax (with clidinium)] 5-2.5 mg capsule 1 cap PO DAILY RF: 0 lisinopril [Zestril] 40 mg tablet 40 mg PO DAILY RF: 0 Referrals: Brain Gomez MD [Primary Care Provider] -
[2018-11-01 08:26] LABS: Alanine Aminotransferase 14 IU/L (9-52); Albumin 4.3 g/dL (3.5-5.0); Albumin Globulin Ratio 1.1 (1.0-2.8); Alkaline Phosphatase 71 U/L (38-126); Bilirubin Total 0.9 mg/dL (0.2-1.3); Blood Urea Nitrogen 7 mg/dL (7-17); Carbon Dioxide 24 mmol/L (22-32); Chloride 96 mmol/L (98-107); Estimated Glomerular Filt Rate > 60.0 mL/min (>60); Globulin 3.8 g/dL (1.7-4.1); Glucose 96 mg/dL (80-110); Lipase 68 U/L (23-300); Sodium 131 mmol/L (137-145); Total Protein 8.1 g/dL (6.3-8.2)
--- NOTE | 2018-11-01 08:26 | DI.CT.S_ITS ---
PROCEDURE: CT ABDOMEN PELVIS W CON INDICATIONS: recent diverticulitis L pain resolved, now pain right lower quad pain TECHNIQUE: After the administration of oral and intravenous contrast, 5 mm thick sections acquired from the diaphragms to the symphysis. 5 mm thick coronal and sagittal reformats were performed. For radiation dose reduction, the following was used: automated exposure control, adjustment of mA and/or kV according to patient size. COMPARISON: [facility], CT, CT ABDOMEN PELVIS W CON, 10/17/2018, 9:21. [facility], CT, CT ABDOMEN PELVIS W CON, 03/13/2018, 4:56. [facility], CT, ABDOMEN/PELVIS WITH CONTRAST, 05/08/2016, 9:32. FINDINGS: Image quality: Diagnostic. ABDOMEN: Lung bases: The measurement bases are clear with the exception of mild scarring versus atelectasis. Heart size is normal. Solid organs: The liver is hypodense when compared to the spleen. The gallbladder is mildly prominent in size. The common bile duct is not dilated. The pancreas and spleen are within normal limits. The adrenals and kidneys also appear to be within normal limits with the exception of extrarenal pelvises. Peritoneum and bowel: There is a small hiatal hernia. The stomach and duodenum are otherwise grossly unremarkable. The small bowel loops are nondilated. There is a large amount of residual stool identified within the distal colon. Severe distal colonic diverticulosis is identified. No definitive evidence to suggest diverticulitis is appreciated. However, the bowel is not well evaluated without oral contrast. There appears to be focal circumferential wall thickening involving the lower portion of the sigmoid colon (image 27, series 3 and image 55, series 2), which was not readily apparent on the exam from 10/17/18. This may represent a focal area of inflammation or peristalsis. Nodes and vessels: No retroperitoneal or mesenteric adenopathy. Aorta and inferior vena cava are normal in caliber. Aortic and iliac artery atherosclerosis is present. Prominent atherosclerotic changes are noted at the origin of the left renal artery, celiac artery, and superior mesenteric artery. Bones: No fractures or suspicious osseous lesions are present. There is moderate degenerative changes of the lower lumbar spine. PELVIS: Genitourinary: Bladder wall thickness is normal. Prominent distention of the bladder is present. Calcification of the uterus probably represents a calcified fibroid. The ovaries are not clearly seen, but do not appear to be significantly dilated. Miscellaneous: No inguinal hernias or adenopathy. Bones: No suspicious bony lesions. Mild to moderate degenerative changes of the bilateral hips and sacroiliac joints are present. IMPRESSION: 1. Probable constipation. No bowel obstruction. 2. Focal wall thickening involving the lower sigmoid colon does not appear to have been present on the previous study and may represent normal peristalsis, a focal area of inflammation/infection, or potentially a neoplasm/mass. Colonoscopy would be helpful for better evaluation, if not already recently performed. 2. Small hiatal hernia. 4. Possible hepatic steatosis. 5. Extensive colonic diverticulosis. Dictated by: Alen Mauro M.D. on 11/01/2018 at 9:02 Approved by: Alen Mauro M.D. on 11/01/2018 at 9:11
[2018-11-01 08:27] LABS: HEMOLYSIS 115 (0-50)
[2018-11-01 08:28] LABS: Aspartate Aminotransferase 26 IU/L (14-36); Potassium 5.1 mmol/L (3.4-5.1)
--- NOTE | 2018-11-01 08:30 | ED_ITS ---
HPI - Abdominal Pain General Chief Complaint: Abdominal Pain Stated Complaint: Stomach cramps Time Seen by Provider: 11/01/18 08:17 Source: patient and old records reviewed Mode of arrival: ambulatory Limitations: no limitations History of Present Illness HPI narrative: This is an 83-year-old female comes to the emergency department complaint of abdominal pain. Patient states that she was seen here about 2 weeks ago was diagnosed with diverticulitis on the CT scan. She took her antibiotics which were 10 days in total. She states that pain has improved it was on the left lower abdomen. But she has been having abdominal pain sort of in her stomach and she indicates the middle of her belly. She states sort of a cramping feeling and she feels bloated. She finds food makes it worse particularly spicy foods. She denies any fevers, she denies any chest pain, shortness of breath, diaphoresis. She has not had any nausea and/or vomiting. She has not had a bowel movement for about 2 days but has been having normal stools otherwise. She is passing gas. Patient denies any urinary urgency, frequency or dysuria. She has been taking hyoscyamine for the bloating, she tried Tylenol as well as a tablet this morning without any relief. She states she has had an appendectomy. Related Data Home Medications Medication Instructions Recorded Confirmed calcium carbonate [Calcium 500] 500 mg PO DAILY #0 02/24/11 11/01/18 multivitamin 1 tab PO DAILY #0 02/24/11 11/01/18 acetaminophen 650 mg PO Q4HP #0 08/17/12 11/01/18 chlordiazepoxide-clidinium [Librax 1 cap PO DAILY 11/01/18 11/01/18 (with clidinium)] lisinopril [Zestril] 40 mg PO DAILY 11/01/18 11/01/18 lorazepam [Ativan] 0.5 - 1 mg PO Q6H PRN 11/01/18 11/01/18 Previous Rx's Medication Instructions Recorded hyoscyamine sulfate 0.125 mg tablet 0.125 mg SL Q2H PRN #45 tab 05/29/18 dicyclomine 20 mg tablet 20 mg PO QID PRN #90 tab 08/14/18 omeprazole 40 mg PO DAILY #30 cap 11/01/18 Allergies Allergy/AdvReac Type Severity Reaction Status Date / Time levofloxacin [From LEVAQUIN] AdvReac Unknown dizziness, Verified 10/29/18 14:21 not sure if related or not...08/30/16 Review of Systems Review of Systems ROS Unobtainable: All systems reviewed & are unremarkable except as noted in HPI and below Constitutional Denies chills, Denies fever(s), Denies lethargy and Denies weakness Cardiovascular Denies chest pain, Denies diaphoresis, Denies rapid heart rate, Denies edema, Denies dyspnea and Denies dyspnea on exertion Respiratory Denies dyspnea and Denies dyspnea on exertion Gastrointestinal Gastrointestinal: Reports abdominal pain, Denies belching, Reports bloating, Denies change in bowel habits, Reports constipation (No BM x2 days, normal bowel movement before.), Denies diarrhea, Denies nausea and Denies vomiting Genitourinary Denies hematuria, Denies urinary frequency, Denies dysuria, Denies flank pain and Denies urinary urgency Musculoskeletal Denies back pain Neurologic Denies weakness [facility] Medical History (Updated 11/01/18 @ 10:57 by Nasreen Metz DO) Anxiety (Chronic 09/16/13) Irritable bowel syndrome without diarrhea (Chronic 05/28/15) Abdominal pain (Chronic) Essential hypertension (Chronic 02/24/11) Mixed hyperlipidemia (Chronic 02/24/11) Irritable bowel syndrome with diarrhea (Chronic 09/13/16) Diverticulosis of large intestine (Chronic) Lung nodule seen on imaging study (Chronic 10/03/12) Osteoporosis (Chronic 02/24/11) History of adenomatous polyp of colon (Chronic) Surgical History (Updated 11/01/18 @ 08:29 by Nasreen Metz DO) Hx of appendectomy (Chronic) H/O colonoscopy (Resolved) History of appendectomy (Resolved) History of foot surgery (Resolved) Social History marital status: number of children: 1 household members: friend(s) lives independently: Yes caregiver/support person: Yes (Step daughter) housing: apartment pets and animals: No education level: high school occupational status: other 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 hortencia/faith: Gnosticism leisure activities: music, reading and other Smoking Status: Never smoker Tobacco: How many years used: 0 alcohol intake: current substance use type: does not use Exam Narrative Exam Narrative: GENERAL: Alert and oriented x three, thin, well-appearing female in mild distress. HEENT: Head normocephalic, atraumatic, EOMI, pupils reactive, face symmetric, moist mucous membranes NECK: Supple, full range of motion CARDIOVASCULAR: Regular rate and rhythm without murmurs, rubs or gallops. RESPIRATORY: Breath sounds equal bilaterally, no wheezes rales or rhonchi. ABDOMEN: Soft, positive for right lower quadrant tenderness. Patient describes sort of generalized discomfort as well although only mildly tender. Normoactive bowel sounds all 4 quadrants. No guarding or rebound, rigidity, no mass : No CVA tenderness EXTREMITIES: Normal range of motion, no clubbing or edema. Neurovascularly intact NEUROLOGICAL: Cranial nerves II through XII grossly intact. Moving all extremit ies SKIN: Warm, dry, no petechiae, no rashes or lesions. Initial Vital Signs Initial Vital Signs: Vital Signs Temperature 98.7 F 11/01/18 07:33 Pulse Rate 89 11/01/18 07:33 Respiratory Rate 16 11/01/18 07:33 Blood Pressure 157/94 H 11/01/18 07:33 Pulse Oximetry 94 11/01/18 07:33 Course Orders Ordered: Discontinued Medications Ketorolac Tromethamine (Toradol) 15 mg IV NOW ONE Stop: 11/01/18 08:27 Last Admin: 11/01/18 09:13 Dose: 15 mg Vital Signs - 8 hr 11/01/18 07:33 11/01/18 08:00 11/01/18 09:00 Temperature 98.7 F Pulse Rate 89 83 88 Respiratory Rate 16 21 19 Blood Pressure 157/94 H Blood Pressure [Right Arm] 163/78 H 165/76 H Pulse Oximetry 94 99 98 11/01/18 09:18 Temperature Pulse Rate 82 Respiratory Rate 21 Blood Pressure Blood Pressure [Right Arm] 165/76 H Pulse Oximetry 98 MDM - Abdominal Pain Lab Data Attestation: I reviewed the patient's lab results. Result diagrams: 11/01/18 07:57 11/01/18 07:57 Lab Results 11/01/18 11/01/18 Range/Units 07:57 07:57 WBC 8.5 (4.5-11.0) X10^3/uL RBC 4.69 (4.0-5.2) X10^6/uL Hgb 13.5 (12.0-16.0) g/dL Hct 39.4 (36-46) % MCV 84.0 (80-100) fL MCH 28.8 (26-34) PG MCHC 34.3 (30-36) % RDW 13.8 (11.6-14.8) % Plt Count 322 (150-400) X10^3/uL Neut % (Auto) 77.1 H (50-75) % Lymph % (Auto) 7.9 L (25-40) % [place] % (Auto) 13.8 (3-14) % Eos % (Auto) 0.5 L (2-4) % Baso % (Auto) 0.7 (0-2) % Neut # (Auto) 6500 (1025-2816) /uL Lymph # (Auto) 700 L (7125-5970) /uL [place] # (Auto) 1200 H (0-900) /uL Eos # (Auto) 0 (0-450) /uL Baso # (Auto) 100 (0-100) /uL Sodium 131 L (137-145) mmol/L Potassium 5.1 (3.4-5.1) mmol/L Chloride 96 L (98-107) mmol/L Carbon Dioxide 24 (22-32) mmol/L BUN 7 (7-17) mg/dL Creatinine 0.50 L (0.52-1.04) mg/dL Estimated GFR > 60.0 (>60) mL/min BUN/Creatinine Ratio 14.0 (6-22) Glucose 96 (80-110) mg/dL Calcium 9.0 (8.4-10.2) mg/dL Total Bilirubin 0.9 (0.2-1.3) mg/dL AST 26 (14-36) IU/L ALT 14 (9-52) IU/L Alkaline Phosphatase 71 (38-126) U/L Total Protein 8.1 (6.3-8.2) g/dL Albumin 4.3 (3.5-5.0) g/dL Globulin 3.8 (1.7-4.1) g/dL Albumin/Globulin Ratio 1.1 (1.0-2.8) Lipase 68 (23-300) U/L Point of care testing: Urine Dip Bedside Urine Glucose Negative Bedside Urine Bilirubin - Negative Bedside Urine Ketone - Negative Urine Specific [place] 1.010 Bedside Urine Occult Blood +/- Bedside Urine pH 7.5 Bedside Urine Protein - Negative Bedside Urine Urobilinogen - Negative Bedside Urine Nitrite - Negative Bedside Urine Leukocytes - Negative Esterase Imaging Data CT scan - abdomen: Radiologist's impression: 78 Nasreen Metz, DO Find Patient Imaging Mahsa Storey 83 F 1935 ACTIVITY DATE EXAM STATUS AUTHOR 11/01/18 08:26 [place] [address] CT Scan Report Signed Patient: Mahsa Storey MMR#: [id number] : 1935cct:[id number] Age/Sex: 83 / FDate of Service: 11/01/18 Loc: ED Accession Number: [id number] Procedure: CT abdomen pelvis w con Ordering Provider: Nasreen Metz D.O. PROCEDURE: CT ABDOMEN PELVIS W CON INDICATIONS: recent diverticulitis L pain resolved, now pain right lower quad pain TECHNIQUE: After the administration of oral and intravenous contrast, 5 mm thick sections acquired from the diaphragms to the symphysis. 5 mm thick coronal and sagittal reformats were performed. For radiation dose reduction, the following was used: automated exposure control, adjustment of mA and/or kV according to patient size. COMPARISON: [facility], CT, CT ABDOMEN PELVIS W CON, 10/17/2018, 9:21. [facility], CT, CT ABDOMEN PELVIS W CON, 03/13/2018, 4:56. [facility], CT, ABDOMEN/PELVIS WITH CONTRAST, 05/08/2016, 9:32. FINDINGS: Image quality: Diagnostic. ABDOMEN: Lung bases: The measurement bases are clear with the exception of mild scarring versus atelectasis. Heart size is normal. Solid organs: The liver is hypodense when compared to the spleen. The gallbladder is mildly prominent in size. The common bile duct is not dilated. The pancreas and spleen are within normal limits. The adrenals and kidneys also appear to be within normal limits with the exception of extrarenal pelvises. Peritoneum and bowel: There is a small hiatal hernia. The stomach and duodenum are otherwise grossly unremarkable. The small bowel loops are nondilated. There is a large amount of residual stool identified within the distal colon. Severe distal colonic diverticulosis is identified. No definitive evidence to suggest diverticulitis is appreciated. However, the bowel is not well evaluated without oral contrast. There appears to be focal circumferential wall thickening involving the lower portion of the sigmoid colon (image 27, series 3 and image 55, series 2), which was not readily apparent on the exam from 10/17/18. This may represent a focal area of inflammation or peristalsis. Nodes and vessels: No retroperitoneal or mesenteric adenopathy. Aorta and inferior vena cava are normal in caliber. Aortic and iliac artery atherosclerosis is present. Prominent atherosclerotic changes are noted at the origin of the left renal artery, celiac artery, and superior mesenteric artery. Bones: No fractures or suspicious osseous lesions are present. There is moderate degenerative changes of the lower lumbar spine. PELVIS: Genitourinary: Bladder wall thickness is normal. Prominent distention of the bladder is present. Calcification of the uterus probably represents a calcified fibroid. The ovaries are not clearly seen, but do not appear to be significantly dilated. Miscellaneous: No inguinal hernias or adenopathy. Bones: No suspicious bony lesions. Mild to moderate degenerative changes of the bilateral hips and sacroiliac joints are present. IMPRESSION: 1. Probable constipation. No bowel obstruction. 2. Focal wall thickening involving the lower sigmoid colon does not appear to have been present on the previous study and may represent normal peristalsis, a focal area of inflammation/infection, or potentially a neoplasm/mass. Colonoscopy would be helpful for better evaluation, if not already recently performed. 2. Small hiatal hernia. 4. Possible hepatic steatosis. 5. Extensive colonic diverticulosis. Dictated by: lAen Mauro M.D. on 11/01/2018 at 9:02 Approved by: Alen Mauro M.D. on 11/01/2018 at 9:11 [facility] Narrative Medical decision making narrative: The patient's CT shows some possible constipation but no bowel obstruction. There is some focal thickening of the lower sigmoid that does not appear to be present on the previous study could be normal peristalsis of versus a focal area of inflammation infection or po tentially neoplasm mass. colonoscopy would be helpful if not recently performed, small hiatal hernia, hepatic steatosis and colonic diverticulosis. Discussed with patient her symptoms seem to be a little bit higher up. But also little bit on the right lower side. Discussed that colonoscopy would be appropriate. She has completed her antibiotics, her white count is not elevated today and the rest her labs appear appropriate. Patient and I discussed putting her on some on omeprazole regularly and continuing her other home medications. She states she will try to follow up with Dr. Gomez tomorrow to review everything. She did have a colonoscopy but she does remember exactly when it may have been several years ago. Discharge Plan Departure Patient Disposition: Home Clinical Impression: Abdominal pain, Bowel wall thickening Discharge Date/Time: 11/01/18 11:09 Interventions: ED Discharge Assessment Last Done: 11/01/18 11:09 Instructions: DI for Abdominal Pain-Adult Activity Restrictions/Additional Instructions: Follow-up with [facility] primary care physician in the next 2-3 days for recheck discussed with Dr. Gomez about possibly having a colonoscopy to evaluate your symptoms and the thickening in your bowel wall that was seen on CT today. I do recommend taking omeprazole once daily, it take time up to 1-2 weeks for symptoms to improve. You prescription was sent to [facility]. Also recommend increasing fiber taking a stool softener. You may continue your home medications as prescribed. Return to the ER for fevers greater than 100.4, worsening abdominal pain, nausea or vomiting, black or bloody stools, if not having any bowel movements or other new or concerning symptoms. Prescriptions: New omeprazole 40 mg capsule,delayed release(DR/EC) 40 mg PO DAILY Qty: 30 RF: 0 No Action multivitamin Tablet 1 tab PO DAILY Qty: 0 RF: 0 calcium carbonate [Calcium 500] 500 mg calcium (1,250 mg) Tablet 500 mg PO DAILY Qty: 0 RF: 0 acetaminophen 650 mg Tablet Extended Release 650 mg PO Q4HP Qty: 0 RF: 0 hyoscyamine sulfate 0.125 mg tablet 0.125 mg SL Q2H PRN (Reason: Abdominal Discomfort) Qty: 45 RF: 11 dicyclomine 20 mg tablet 20 mg PO QID PRN (Reason: stomach cramps) Qty: 90 RF: 2 lorazepam [Ativan] 0.5 mg tablet 0.5 - 1 mg PO Q6H PRN (Reason: Anxiety) RF: 0 chlordiazepoxide-clidinium [Librax (with clidinium)] 5-2.5 mg capsule 1 cap PO DAILY RF: 0 lisinopril [Zestril] 40 mg tablet 40 mg PO DAILY RF: 0 Referrals: Brain Gomez MD [Primary Care Provider] -
[2018-11-01 09:00] VITALS: BP 165/76; PULSE 88; RESP 19; O2SAT 98
[2018-11-01] MEDS: KETOROLAC 60 MG/2 ML VIAL 15 MG IV (09:13)
[2018-11-01 09:18] VITALS: BP 165/76; PULSE 82; RESP 21; O2SAT 98
== END 2018-11-01 11:09 | disposition home or self-care (01) ==
PROVIDERS: Emergency Provider Emergency Medicine; PCP Internal Medicine
DX: K57.30 Diverticulosis of large intestine without perforation or abscess without bleeding (principal); R10.9 Unspecified abdominal pain; K59.00 Constipation, unspecified; R14.0 Abdominal distension (gaseous); I10 Essential (primary) hypertension
CPT/HCPCS: 36591; 74177; 80053; 81003; 83690; 85025; 96374; 99283; 99285; J1885; Q9967

== ENCOUNTER 2019-09-15 09:56 | Emergency (ER) | payer MEDICARE, OTHER, SELFPAY ==
[2019-09-15 10:10] VITALS: BP 188/85; PULSE 101; RESP 18; TEMP 36.4; O2SAT 97; BMI 22.6
--- NOTE | 2019-09-15 10:15 | DI.RAD.S_ITS ---
PROCEDURE: XR CHEST 2V INDICATIONS: cough TECHNIQUE: 2 views of the chest were acquired. COMPARISON: [facility], , CHEST 1 VIEW, 04/01/2017, 14:17. FINDINGS: Surgical changes and devices: None. Lungs and pleura: Lungs are clear. No pleural effusions or pneumothorax. Mediastinum: Mediastinal contours are normal. Heart size is normal. Bones and chest wall: No suspicious bony abnormalities. Soft tissues appear unremarkable. IMPRESSION: Stable chest. No acute cardiopulmonary process is evident. Dictated by: Alen Mauro M.D. on 09/15/2019 at 10:01 Approved by: Alen Mauro M.D. on 09/15/2019 at 10:07
--- NOTE | 2019-09-15 10:45 | ED_ITS ---
HPI - URI/Sore Throat General Chief Complaint: Upper Respiratory Symptoms Stated Complaint: cough x 5 days Time Seen by Provider: 09/15/19 10:00 Source: patient Mode of arrival: Ambulatory Limitations: no limitations History of Present Illness HPI Narrative: 84-year-old female nonsmoker with history of diverticulitis presents with a chief complaint of about 5 days of upper respiratory symptoms including runny nose, nasal congestion and cough. She had been producing a small amount of sputum a few days ago but is actually largely improved and moving forward. She denies any fever or chills nor any chest pain. She does not require supplemental oxygen. Complaint: cough Onset (ago): day(s) Duration: improved Severity: moderate Relieving factors: nothing Exacerbating factors: nothing Description of mucous: clear Able to tolerate fluids by mouth: Yes Context: sick contacts Associated symptoms: denies other symptoms Treatments prior to arrival: cold medicine Related Data Home Medications Medication Instructions Recorded Confirmed calcium carbonate [Calcium 500] 500 mg PO DAILY #0 02/24/11 09/12/19 multivitamin 1 tab PO DAILY #0 02/24/11 09/12/19 acetaminophen 650 mg PO Q4HP #0 08/17/12 09/12/19 Previous Rx's Medication Instructions Recorded dicyclomine 20 mg tablet 20 mg PO QID PRN #90 tab 08/14/18 Disabled [address]ing #1 each 11/02/18 omeprazole 40 mg capsule,delayed 40 mg PO DAILY #30 cap 11/02/18 release lorazepam 0.5 mg tablet 0.5 - 1 mg PO Q6H PRN #20 tab 01/14/19 lisinopril 40 mg tablet See Rx Instructions .ROUTE 04/08/19 .COMPLEX #90 tablet chlordiazepoxide-clidinium 5 See Rx Instructions .ROUTE 05/30/19 mg-2.5 mg capsule .COMPLEX #30 capsule psyllium seed (sugar) 1 tbsp PO DAILY #1254 gram 07/01/19 hyoscyamine sulfate 0.125 mg See Rx Instructions .ROUTE 07/04/19 sublingual tablet .COMPLEX #45 each Allergies Allergy/AdvReac Type Severity Reaction Status Date / Time levofloxacin [From LEVAQUIN] AdvReac Unknown dizziness, Verified 09/15/19 10:10 not sure if related or not...08/30/16 Review of Systems Constitutional Constitutional: Denies chills, Denies fatigue, Denies fever(s), Denies frequent falls, Denies lethargy and Denies weakness Eyes Eyes: Denies change in vision, Denies eye discharge, Denies irritation and Denies loss of vision ENT Ears, Nose, Mouth, and Throat: Denies change in voice, Denies dizziness, Reports nasal congestion, Reports nasal discharge, Denies neck pain, Denies sore throat and Denies throat swelling Cardiovascular Cardiovascular: Denies chest pain, Denies irregular heart rhythm, Denies lightheadedness, Denies palpitations, Denies dyspnea, Denies dyspnea on exertion and Denies orthopnea Respiratory Respiratory: Reports cough, Denies dyspnea, Denies dyspnea on exertion and Denies wheezing Gastrointestinal Gastrointestinal: Denies abdominal pain, Denies change in bowel habits, Denies diarrhea, Denies nausea and Denies vomiting Genitourinary Genitourinary: Denies hematuria, Denies flank pain, Denies urinary incontinence and Denies urinary urgency Musculoskeletal Musculoskeletal: Denies back pain, Denies muscle weakness, Denies neck pain, Denies numbness and Denies tingling Integumentary/Breasts Skin/Breast: Denies pruritus, Denies erythema, Denies rash and Denies wounds Neurologic Neurologic: Denies behavioral changes, Denies confusion, Denies dizziness, Denies frequent falls, Denies loss of vision, Denies numbness, Denies tingling and Denies weakness Psychiatric Psychiatric: Denies anxiety, Denies behavioral changes, Denies confusion, Denies depression, Denies homicidal ideation and Denies suicidal ideation Endocrine Endocrine: Denies fatigue, Denies flushing and Denies palpitations Hematologic/Lymphatic Hematologic/Lymphatic: Denies easy bruising Allergic/Immunologic Allergic/Immunologic: Denies urticaria, Denies throat swelling and Denies wheez ing Patient History Social History marital status: number of children: 1 household members: friend(s) lives independently: Yes caregiver/support person: Yes (Step daughter) housing: apartment pets and animals: No education level: high school occupational status: other 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 hortencia/yazdanism: Worship leisure activities: music, reading and other Smoking Status: Never smoker Tobacco: How many years used: 0 alcohol intake: current substance use type: does not use Smoking Status: Never smoker alcohol intake frequency: other Substance Use Type: does not use Exam Narrative Exam Narrative: GENERAL: [84] year old patient appears stated age. Well- nourished, well-developed patient, in mild distress. HEAD: Atraumatic. Normocephalic. EYES: Pupils equal round and reactive. Extraocular motions intact. No scleral icterus. No injection or drainage. ENT: Nose without bleeding, purulent drainage. Throat without erythema, clear post nasal drip. tonsillar hypertrophy or exudate. Airway patent. NECK: Trachea midline. Non tender CARDIOVASCULAR: Regular rate and rhythm without murmurs, gallops, or rubs. RESPIRATORY: Clear to auscultation. Breath sounds equal bilaterally. No wheezes, rales, or rhonchi. GASTROINTESTINAL: Abdomen soft, non-tender, nondistended. EXTREMITIES: No edema or joint tenderness. BACK: Nontender without deformity or crepitance. No flank tenderness. NEURO: AOx3. SKIN: No rash or erythema of visible areas Initial Vital Signs Initial Vital Signs: Vital Signs Temperature 97.6 F 09/15/19 10:10 Pulse Rate 101 H 09/15/19 10:10 Respiratory Rate 18 09/15/19 10:10 Blood Pressure 188/85 H 09/15/19 10:10 Pulse Oximetry 97 09/15/19 10:10 Course Orders Ordered: ED Orders 09/15/19 10:15 XR chest 2V Stat 09/15/19 10:25 Influenza A & B (PCR) Stat Vital Signs Vital signs: Vital Signs - 8 hr 09/15/19 10:10 Temperature 97.6 F Pulse Rate 101 H Respiratory Rate 18 Blood Pressure 188/85 H Pulse Oximetry 97 MDM - URI/Sore Throat Lab Data Labs: Lab Results 09/15/19 Range/Units 10:25 Influenza A (RT-PCR) Flu a negative (NEGATIVE) Influenza B (RT-PCR) Flu b negative (NEGATIVE) Imaging Data Chest x-ray: Radiologist's Impression: Mahsa Storey 84 F [address] [address] XRay Report Signed Patient: [place] [facility]#: [id number] : 1935cct:[id number] Age/Sex: 84 / FDate of Service: 09/15/19 Loc: ED Accession Number: [id number] Procedure: XR chest 2V Ordering Provider: Juan Pablo Ram D.O. PROCEDURE: XR CHEST 2V INDICATIONS: cough TECHNIQUE: 2 views of the chest were acquired. COMPARISON: [facility], CHEST 1 VIEW, 04/01/2017, 14:17. FINDINGS: Surgical changes and devices: None. Lungs and pleura: Lungs are clear. No pleural effusions or pneumothorax. Mediastinum: Mediastinal contours are normal. Heart size is normal. Bones and chest wall: No suspicious bony abnormalities. Soft tissues appear unremarkable. IMPRESSION: Stable chest. No acute cardiopulmonary process is evident. Dictated by: Alen Mauro M.D. on 09/15/2019 at 10:01 Approved by: Alen Mauro M.D. on 09/15/2019 at 10:07 Discharge Plan Departure Patient Disposition: Home Clinical Impression: Upper respiratory infection, viral Discharge Date/Time: 09/15/19 11:48 Instructions: DI for Viral Upper Respiratory Infection -- Adult Activity Restrictions/Additional Instructions: *You have been diagnosed with [ acute viral upper respiratory infection ] *What to do: *Take medications as directed: consider over the counter antihistamines such as scar, zyrtec, or claritin which can dry the secretions that are likely causing your symptoms *Follow up with your primary care provider in 2-3 days, call for an appointment. Let them know you were seen in the Emergency Department and that we ask that you be seen in follow up *Return to ER if you should have any new, worsening or concerning symptoms Prescriptions: No Action multivitamin Tablet 1 tab PO DAILY Qty: 0 RF: 0 calcium carbonate [Calcium 500] 500 mg calcium (1,250 mg) Tablet 500 mg PO DAILY Qty: 0 RF: 0 acetaminophen 650 mg Tablet Extended Release 650 mg PO Q4HP Qty: 0 RF: 0 lisinopril 40 mg tablet See Rx Instructions .ROUTE .COMPLEX Qty: 90 RF: 1 chlordiazepoxide-clidinium 5-2.5 mg capsule See Rx Instructions .ROUTE .COMPLEX Qty: 30 RF: 3 hyoscyamine sulfate 0.125 mg tablet, sublingual See Rx Instructions .ROUTE .COMPLEX Qty: 45 RF: 11 (DME) Disabled Parking Qty: 1 RF: 0 omeprazole 40 mg capsule,delayed release(DR/EC) 40 mg PO DAILY Qty: 30 RF: 5 dicyclomine 20 mg tablet 20 mg PO QID PRN (Reason: stomach cramps) Qty: 90 RF: 2 lorazepam [Ativan] 0.5 mg tablet 0.5 - 1 mg PO Q6H PRN (Reason: Anxiety) Qty: 20 RF: 0 Metamucil (sugar) Powder 1 tbsp PO DAILY Qty: 1254 RF: 0 Referrals: Brain Gomez MD [Primary Care Provider] -
[2019-09-15 11:05] LABS: Influenza A - CEPHEID Flu A NEGATIVE (NEGATIVE); Influenza B - CEPHEID Flu B NEGATIVE (NEGATIVE)
[2019-09-15 11:08] VITALS: BP 160/82; PULSE 98; RESP 16; O2SAT 97
== END 2019-09-15 11:48 | disposition home or self-care (01) ==
PROVIDERS: Emergency Provider Emergency Medicine; PCP Internal Medicine
DX: J06.9 Acute upper respiratory infection, unspecified (principal)
CPT/HCPCS: 71046; 87502; 99281; 99284

== ENCOUNTER 2019-09-20 17:35 | Inpatient (IN) | payer MEDICARE, OTHER, SELFPAY ==
[2019-09-20] VITALS (7 sets, daily range): BP systolic 112–201; BP diastolic 57–91; PULSE 76–92; RESP 14–18; TEMP 36.8; O2SAT 97–99; BMI 21.2
--- NOTE | 2019-09-20 17:39 | DI.RAD.S_ITS ---
PROCEDURE: XR HIP W PEL IF DONE RT 2V INDICATIONS: possible fracture TECHNIQUE: AP pelvis with lateral view(s) of the right hip(s). COMPARISON: None. FINDINGS: Bones: There is a comminuted intertrochanteric and proximal humeral diaphyseal fracture with mild displacement at the fracture site. There is no displacement at the acetabulum. Sacroiliac joints are markedly narrowed. Degenerative changes are present within the lower lumbar spine. Soft tissues: The visualized bowel gas pattern is normal. No suspicious soft tissue calcifications. IMPRESSION: Comminuted intertrochanteric and proximal right femoral fracture with displacement. Dictated by: Kita Resendiz M.D. on 09/20/2019 at 18:18 Approved by: Kita Resendiz M.D. on 09/20/2019 at 18:19
--- NOTE | 2019-09-20 17:41 | DI.RAD.S_ITS ---
PROCEDURE: XR CHEST 1V INDICATIONS: possible hip/pelvis fracture TECHNIQUE: One view of the chest was acquired. COMPARISON: [facility], , XR CHEST 2V, 09/15/2019, 10:25. FINDINGS: Surgical changes and devices: None. Lungs and pleura: Chronic interstitial changes are present with mild increased vascularity. No pleural effusions or pneumothorax. Lungs are hyperinflated suggestive of COPD. Mediastinum: Mediastinal contours appear normal. Heart size is normal. Bones and chest wall: No suspicious bony lesions. Overlying soft tissues appear unremarkable. IMPRESSION: Mild increased vascularity suggestive of edema. Dictated by: Kita Resendiz M.D. on 09/20/2019 at 18:02 Approved by: Kita Resendiz M.D. on 09/20/2019 at 18:03
[2019-09-20 17:58] LABS: Hematocrit 39.7 % (36-46); Hemoglobin 13.6 g/dL (12.0-16.0); Mean Corpuscular HGB Conc 34.2 % (30-36); Mean Corpuscular Hemoglobin 29.6 PG (26-34); Mean Corpuscular Volume 86.6 fL (80-100); Platelet Count 362 X10^3/uL (150-400); Red Blood Cell Count 4.58 X10^6/uL (4.0-5.2); Red Cell Distribution Width 13.4 % (11.6-14.8); White Blood Cell Count 7.8 X10^3/uL (4.5-11.0)
[2019-09-20 18:09] LABS: Add Manual Diff / Slide Review YES
[2019-09-20 18:11] LABS: BUN Creatinine Ratio 23.3 (6-22); Blood Urea Nitrogen 14 mg/dL (7-17); Calcium 9.7 mg/dL (8.4-10.2); Carbon Dioxide 23 mmol/L (22-32); Chloride 97 mmol/L (98-107); Estimated Glomerular Filt Rate > 60.0 mL/min (>60); Glucose 118 mg/dL (80-110); HEMOLYSIS 33 (0-50); Potassium 3.9 mmol/L (3.4-5.1); Sodium 133 mmol/L (137-145)
--- NOTE | 2019-09-20 18:13 | ED_ITS ---
HPI - Extremity Injury (Lower) <ASTRID Pedro - Last Filed: 09/20/19 20:50> General Chief Complaint: Extremity Injury, Lower Stated Complaint: Hip Fx Time Seen by Provider: 09/20/19 17:39 Source: EMS Mode of arrival: EMS Limitations: no limitations History of Present Illness HPI Narrative: This is a 84-year-old female, nonsmoker, who presents to ED with [facility] with R hip pain after she fell on right hip on the kitchen floor after she lost footing while turning. Patient reports localized pain on her right hip. Denies any bleeding from falling or injuring other areas including hitting her head, foot pain, ankle pain, or knee pain. She reports has a known history of anxiety and feels anxious at this time. Patient has history of osteoporosis, hypertension, hyperlipidemia, IBS, thyroid nodule. Patient reports she was not able to stand after the fall and crawled to get her phone to get help. Patient reports is able to move her toes and has intact sensation on right foot. Patient denies previous history of a pelvic or femur fracture, surgical interventions. Related Data Home Medications Medication Instructions Recorded Confirmed calcium carbonate [Calcium 500] 500 mg PO DAILY #0 02/24/11 09/20/19 multivitamin 1 tab PO DAILY #0 02/24/11 09/20/19 acetaminophen 650 mg PO Q4HP #0 08/17/12 09/20/19 chlordiazepoxide-clidinium 1 cap PO DAILY 09/20/19 09/20/19 lisinopril 40 mg PO DAILY 09/20/19 09/20/19 Previous Rx's Medication Instructions Recorded dicyclomine 20 mg tablet 20 mg PO QID PRN #90 tab 08/14/18 Disabled Parking #1 each 11/02/18 omeprazole 40 mg capsule,delayed 40 mg PO DAILY #30 cap 11/02/18 release lorazepam 0.5 mg tablet 0.5 - 1 mg PO Q6H PRN #20 tab 01/14/19 psyllium seed (sugar) 1 tbsp PO DAILY #1254 gram 07/01/19 hyoscyamine sulfate 0.125 mg See Rx Instructions .ROUTE 07/04/19 sublingual tablet .COMPLEX #45 each Allergies Allergy/AdvReac Type Severity Reaction Status Date / Time levofloxacin [From LEVAQUIN] AdvReac Unknown dizziness, Verified 09/20/19 17:41 not sure if related or not...08/30/16 Review of Systems <ASTRID Pedro - Last Filed: 09/20/19 20:50> Review of Systems Narrative: General: Denies fever, chills, fatigue, malaise, sweats. HEENT: Denies sinus pain, ear pain, sore throat, difficulty swallowing, diz ziness. Respiratory: Denies dyspnea, cough, wheezing, hemoptysis, sputum. Cardiovascular: Denies chest pain, palpitations, orthopnea, edema. Gastrointestinal: Denies nausea, vomiting, abdominal pain, diarrhea, constipation, melena. : Denies dysuria, frequency, incontinence, hematuria, urinary retention. Musculoskeletal: See HPI Skin: Denies rash, skin lesions, or other. Neurologic: Denies weakness, headache, numbness, change in speech, confusion, seizures, incoordination. Psychiatric: No concerning psychosocial issues. 12-point review of systems is negative except for those stated above. Patient History <ASTRID Pedro - Last Filed: 09/20/19 20:50> Medical History Abdominal pain (Chronic) Anxiety (Chronic 09/16/13) Diverticulosis of large intestine (Chronic) Essential hypertension (Chronic 02/24/11) History of adenomatous polyp of colon (Chronic) Hypertension (Acute) Irritable bowel syndrome with diarrhea (Chronic 09/13/16) Irritable bowel syndrome without diarrhea (Chronic 05/28/15) Lung nodule seen on imaging study (Chronic 10/03/12) Mixed hyperlipidemia (Chronic 02/24/11) Osteoporosis (Chronic 02/24/11) Surgical History H/O colonoscopy (Resolved) History of appendectomy (Resolved) History of foot surgery (Resolved) Hx of appendectomy (Chronic) Social History marital status: number of children: 1 household members: none lives independently: Yes caregiver/support person: Yes (Step daughter) housing: apartment pets and animals: No education level: high school occupational status: other 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 hortencia/sabianist: [employer] leisure activities: music, reading and other Smoking Status: Never smoker Tobacco: How many years used: 0 alcohol intake: current substance use type: does not use Smoking Status: Never smoker alcohol intake frequency: other Substance Use Type: does not use Exam <Leonel ASTRID Ramirez - Last Filed: 09/20/19 20:50> Narrative Exam Narrative: GEN: Alert, oriented x 3, well appearing and nourished, and in no acute distress. Head: Normal cephalic, atraumatic. No scalp or temporal tenderness, palpable mass or rash. EYES: Pupils are equal, round, and reactive to light and accommodation. Extraocular muscles are intact bilaterally. There is no subconjunctival hemorr tonya, exudate and sclera non-icteric. ENT: Hearing grossly intact. Nose without bleeding, purulent discharge. Mucous membrane dry, no mucosal lesion. Throat without erythema, tonsillar hypertrophy or exudate. Uvula in midline, airway patent. Neck: Trachea in midline. No JVD, non-tender without lymphadenopathy. No masses or thyroid megaly. Supple, non-tender and no meningeal signs. CARDIAC: Normal regular rate and rhythm without murmurs, gallops, or rubs. No chest wall tenderness. No peripheral edema, cyanosis or pallor. Capillary refill is less than 2 seconds. RESPIRATORY: Lungs are clear to auscultate bilaterally. No cough, wheezes, rales, or rhonchi. No stridor, respiratory distress, increase work of breathing, or accessary muscle used. ABD: Abdomen soft, nontender and non-distended. No guarding or rebound tenderness to palpate. Bowel sounds are normal in all 4 quadrants. There is no palpable masses or organomegaly. SKIN: Warm, dry, normal color for patient. No erythema, lesions or rash over visible areas. BACK: Nontender without deformity or crepitance. No flank tenderness. NEUROLOGICAL: Alert and oriented to place, time and person. Sensation and motor function intact bilaterally. No facial droops, dysphasia. PSYCHIATRIC: Good judgement and reason, without hallucinations, abnormal affect or abnormal behaviors during the examination. Initial Vital Signs Initial Vital Signs: Vital Signs Pulse Rate 89 09/20/19 18:03 Extrem Right lower extremity: hip/thigh (external rotation) Details: abnormal to inspection and abnormal ROM Details: held in an abnormal fashion Details: in external rotation and with range as follows (able to move toes), knee Details: normal to inspection; no tenderness and no swelling, lower leg Details: normal to inspection; no tenderness and no localized swelling, ankle Details: normal to inspection; no tenderness and no swelling and foot Details: normal capillary refill, toes with normal ROM, no edema, vascular exam Details: dorsalis pedis pulse present and normal capillary refill and motor-sensory exam Details: light- touch normal <Nasreen Metz DO - Last Filed: 09/21/19 01:38> Initial Vital Signs Initial Vital Signs: Vital Signs Pulse Rate 89 09/20/19 18:03 Scores <ASTRID Pedro - Last Filed: 09/20/19 20:50> GCS [place] coma scale eye opening: Spontaneous Kvng coma scale verbal response: Orientated Kvng coma scale motor response: Obey commands Kvng coma scale total score: 15 Course <ASTRID Pedro - Last Filed: 09/20/19 20:50> Orders Ordered: ED Orders 09/20/19 17:39 XR hip w pel if done RT 2V Stat 09/20/19 17:40 EKG-12 Lead Stat 09/20/19 17:41 XR chest 1V Stat Complete Blood Count AUTO DIFF Stat 09/20/19 17:43 Basic Metabolic Panel Stat Type and Screen Stat 09/20/19 18:59 XR knee RT 1to2V Stat Calcium Carbonate (Tums) 500 mg PO DAILY YUSUF Dicyclomine HCl (Bentyl) 20 mg PO QID PRN PRN Reason: stomach cramps Sodium Chloride (Normal Saline 0.9%) 1,000 mls @ 100 mls/hr IV CONT YUSUF Last Infusion: 09/20/19 19:47 Dose: 100 mls/hr Documented by: Infusion: 09/20/19 18:45 Dose: 100 mls/hr Documented by: Admin: 09/20/19 18:43 Dose: 100 mls/hr Documented by: JOON Lisinopril (Zestril) 40 mg PO DAILY YUSUF Lorazepam (Ativan) 1 mg PO Q6H PRN PRN Reason: Anxiety Morphine Sulfate (Morphine) 4 mg IV Q4HR PRN PRN Reason: Pain, Severe (7-10) Last Admin: 09/21/19 00:20 Dose: 4 mg Documented by: STEPH Naloxone HCl (Narcan) 0.2 mg IV Q2MIN PRN PRN Reason: Opiate Reversal Non-Formulary Medication (Acetaminophen) 650 mg PO Q4H YUSUF Ondansetron HCl (Zofran) 4 mg IV Q8HR PRN PRN Reason: Nausea And Vomiting Pantoprazole Sodium (Protonix) 40 mg PO 0600 YUSUF Psyllium Hydrophilic Mucilloid (Metamucil Fiber Packet) 1 packet PO DAILY YUSUF Discontinued Medications Morphine Sulfate (Morphine) 4 mg IV NOW ONE Stop: 09/20/19 18:20 Last Admin: 09/20/19 18:35 Dose: 4 mg Documented by: JOON Morphine Sulfate (Morphine) 2 mg IV Q4HR PRN PRN Reason: Pain, Moderate (4-6) Vital Signs Vital signs: Vital Signs - 8 hr 09/20/19 18:03 09/20/19 18:30 09/20/19 18:44 Pulse Rate 78 90 Pulse Rate [Right Dorsalis Pedis] 89 Respiratory Rate 17 16 Blood Pressure [Left Arm] 201/91 H 201/91 H Pulse Oximetry 99 98 09/20/19 19:00 09/20/19 19:15 Pulse Rate 76 78 Pulse Rate [Right Dorsalis Pedis] Respiratory Rate 17 14 Blood Pressure [Left Arm] 112/57 L 133/63 Pulse Oximetry 98 98 <Nasreen Metz, - Last Filed: 09/21/19 01:38> Orders Ordered: ED Orders 09/20/19 17:39 XR hip w pel if done RT 2V Stat 09/20/19 17:40 EKG-12 Lead Stat 09/20/19 17:41 XR chest 1V Stat Complete Blood Count AUTO DIFF Stat 09/20/19 17:43 Basic Metabolic Panel Stat Type and Screen Stat 09/20/19 18:59 XR knee RT 1to2V Stat Calcium Carbonate (Tums) 500 mg PO DAILY YUSUF Dicyclomine HCl (Bentyl) 20 mg PO QID PRN PRN Reason: stomach cramps Sodium Chloride (Normal Saline 0.9%) 1,000 mls @ 100 mls/hr IV CONT YUSUF Last Infusion: 09/20/19 19:47 Dose: 100 mls/hr Documented by: Infusion: 09/20/19 18:45 Dose: 100 mls/hr Documented by: Admin: 09/20/19 18:43 Dose: 100 mls/hr Documented by: JOON Lisinopril (Zestril) 40 mg PO DAILY YUSUF Lorazepam (Ativan) 1 mg PO Q6H PRN PRN Reason: Anxiety Morphine Sulfate (Morphine) 4 mg IV Q4HR PRN PRN Reason: Pain, Severe (7-10) Last Admin: 09/21/19 00:20 Dose: 4 mg Documented by: STEPH Naloxone HCl (Narcan) 0.2 mg IV Q2MIN PRN PRN Reason: Opiate Reversal Non-Formulary Medication (Acetaminophen) 650 mg PO Q4H YUSUF Ondansetron HCl (Zofran) 4 mg IV Q8HR PRN PRN Reason: Nausea And Vomiting Pantoprazole Sodium (Protonix) 40 mg PO 0600 [facility] Psyllium Hydrophilic Mucilloid (Metamucil Fiber Packet) 1 packet PO DAILY YUSUF Discontinued Medications Morphine Sulfate (Morphine) 4 mg IV NOW ONE Stop: 09/20/19 18:20 Last Admin: 09/20/19 18:35 Dose: 4 mg Documented by: JOON Morphine Sulfate (Morphine) 2 mg IV Q4HR PRN PRN Reason: Pain, Moderate (4-6) Vital Signs Vital signs: Vital Signs - 8 hr 09/20/19 18:03 09/20/19 18:30 09/20/19 18:44 Pulse Rate 78 90 Pulse Rate [Right Dorsalis Pedis] 89 Respiratory Rate 17 16 Blood Pressure [Left Arm] 201/91 H 201/91 H Pulse Oximetry 99 98 09/20/19 19:00 09/20/19 19:15 Pulse Rate 76 78 Pulse Rate [Right Dorsalis Pedis] Respiratory Rate 17 14 Blood Pressure [Left Arm] 112/57 L 133/63 Pulse Oximetry 98 98 MDM - Extremity Injury (Lower) <ASTRID Pedro - Last Filed: 09/20/19 20:50> Differential Diagnosis Differential diagnosis: Likely fracture of femur, fracture of hip and other Medical Records Attestation: I reviewed the patient's medical records. Lab Data Attestation: I reviewed the patient's lab results. Result diagrams: 09/20/19 17:41 09/20/19 17:43 Labs: Lab Results 09/20/19 09/20/19 09/20/19 Range/Units 17:41 17:43 17:43 WBC 7.8 (4.5-11.0) X10^3/uL RBC 4.58 (4.0-5.2) X10^6/uL Hgb 13.6 (12.0-16.0) g/dL Hct 39.7 (36-46) % MCV 86.6 (80-100) fL MCH 29.6 (26-34) PG MCHC 34.2 (30-36) % RDW 13.4 (11.6-14.8) % Plt Count 362 (150-400) X10^3/uL Neut % (Auto) Not Reportable Lymph % (Auto) Not Reportable [place] % (Auto) Not Reportable Eos % (Auto) Not Reportable Baso % (Auto) Not Reportable Lymph # (Auto) Not Reportable [place] # (Auto) Not Reportable Baso # (Auto) Not Reportable Total Counted 100 Seg Neutrophils % 53.0 (38-70) % Band Neutrophils % 8.0 H (3-7) % Lymphocytes % (Manual) 21.0 L (25-45) % Monocytes % (Manual) 15.0 H (2-11) % Eosinophils % (Manual) 1.0 L (2-4) % Basophils % (Manual) 1.0 (0-1) % Metamyelocytes % 1.0 H (-0) % Neutrophils # (Manual) 4758 (7794-7183) /uL RBC Morphology Normal morphology Sodium 133 L (137-145) mmol/L Potassium 3.9 (3.4-5.1) mmol/L Chloride 97 L (98-107) mmol/L Carbon Dioxide 23 (22-32) mmol/L BUN 14 (7-17) mg/dL Creatinine 0.60 (0.52-1.04) mg/dL Estimated GFR > 60.0 (>60) mL/min BUN/Creatinine Ratio 23.3 H (6-22) Glucose 118 H (80-110) mg/dL Calcium 9.7 (8.4-10.2) mg/dL Blood Type AB Positive Antibody Screen Negative Imaging Data XR-Hip/Pelvis RT: Radiologist's Impression: [address] [address] XRay Report Signed Patient: Mahsa Storey [facility]#: [id number] : 7Acct:[id number] Age/Sex: 84 / FDate of Service: 09/20/19 Loc: ED Accession Number: [id number] Procedure: XR hip w pel if done RT 2V Ordering Provider: Cordell Christie D.O. PROCEDURE: XR HIP W PEL IF DONE RT 2V INDICATIONS: possible fracture TECHNIQUE: AP pelvis with lateral view(s) of the right hip(s). COMPARISON: None. FINDINGS: Bones: There is a comminuted intertrochanteric and proximal humeral diaphyseal fracture with mild displacement at the fracture site. There is no displacement at the acetabulum. Sacroiliac joints are markedly narrowed. Degenerative changes are present within the lower lumbar spine. Soft tissues: The visualized bowel gas pattern is normal. No suspicious soft tissue calcifications. IMPRESSION: Comminuted intertrochanteric and proximal right femoral fracture with displacement. Dictated by: Kita Resendiz M.D. on 09/20/2019 at 18:18 Approved by: Kita Resendiz M.D. on 09/20/2019 at 18:19 Chest x-ray: Radiologist's Impression: [address] [address] XRay Report Signed Patient: Mahsa Storey [facility]#: [id number] : 7Acct:[id number] Age/Sex: 84 / FDate of Service: 09/20/19 Loc: ED Accession Number: [id number] Procedure: XR chest 1V Ordering Provider: Leonel Ramirez PROCEDURE: XR CHEST 1V INDICATIONS: possible hip/pelvis fracture TECHNIQUE: One view of the chest was acquired. COMPARISON: [facility] , XR CHEST 2V, 09/15/2019, 10:25. FINDINGS: Surgical changes and devices: None. Lungs and pleura: Chronic interstitial changes are present with mild increased vascularity. No pleural effusions or pneumothorax. Lungs are hyperinflated suggestive of COPD. Mediastinum: Mediastinal contours appear normal. Heart size is normal. Bones and chest wall: No suspicious bony lesions. Overlying soft tissues appear unremarkable. IMPRESSION: Mild increased vascularity suggestive of edema. Dictated by: Kita Resendiz M.D. on 09/20/2019 at 18:02 Approved by: Kita Resendiz M.D. on 09/20/2019 at 18:03 XR-Knee RT: Radiologist's Impression: [address] [address] XRay Report Signed Patient: Mahsa Storey [facility]#: [id number] : 7Acct:[id number] Age/Sex: 84 / FDate of Service: 09/20/19 Loc: ME283-2 Accession Number: [id number] Procedure: XR knee RT 1to2V Ordering Provider: Leonel Ramirez PROCEDURE: XR KNEE RT 1TO2V INDICATIONS: KNEE REQUESTED PER ORTHOPEDIC TECHNIQUE: 2 views of the knee were acquired. COMPARISON: None. FINDINGS: Bones: No fractures or dislocations. No suspicious bony lesions. Moderate lateral and medial osteoarthritic compartment narrowing. Chondrocalcinosis is present. Soft tissues: No joint effusion. No suspicious soft tissue calcifications. IMPRESSION: No visualized acute fracture or dislocation. However, if clinical concern and/or pain persist, short interval imaging followup in 7-10 days is recommended, as occult injury cannot be definitively excluded. Dictated by: Kita Resendiz M.D. on 09/20/2019 at 19:41 Approved by: Kita Resendiz M.D. on 09/20/2019 at 19:43 ECG Data Attestation: I personally reviewed and interpreted this ECG as follows: Prior ECG tracings: available for review Interpretation: Sinus rhythm rate at 78. MN int 152, QRS dur 72, QT/QTc 376/[address] elevations or depression. MDM Narrative Medical decision making narrative: This is a 84-year-old female who has a history of osteoporosis presents to ED with closed right comminuted intertr ochanteric and proximal right femoral fracture with mild displacement from falling on a kitchen floor after she lost footing when she was turning. Patient reports localized pain in right hip with intact sensation and movement to her toes. Right knee x-ray does not show fractures or dislocation. Patient had good pedal pulse distally. H&H is stable. Patient's sodium and chloride was mildly 133/97. Patient is receiving gentle maintenance hydration with normal saline. Type and screen was obtained. EKG was sinus rhythm. Chest x-ray showsMild increased vascularity without pleural effusion or pneumothorax with normal heart size and hyperinflation. Patient medicated with morphine for pain management which improved her blood pressure. Patient has been NPO since arrival to ED and has castañeda catheter inserted for mobility. Dr. Chow was consulted at 1900 for femur fracture and surgical intervention and the patient was admitted under medical service by Dr. Gonsales for continuation of care. <Nasreen Metz, DO - Last Filed: 09/21/19 01:38> Lab Data Labs: Lab Results 09/20/19 09/20/19 09/20/19 Range/Units 17:41 17:43 17:43 WBC 7.8 (4.5-11.0) X10^3/uL RBC 4.58 (4.0-5.2) X10^6/uL Hgb 13.6 (12.0-16.0) g/dL Hct 39.7 (36-46) % MCV 86.6 (80-100) fL MCH 29.6 (26-34) PG MCHC 34.2 (30-36) % RDW 13.4 (11.6-14.8) % Plt Count 362 (150-400) X10^3/uL Neut % (Auto) Not Reportable Lymph % (Auto) Not Reportable [place] % (Auto) Not Reportable Eos % (Auto) Not Reportable Baso % (Auto) Not Reportable Lymph # (Auto) Not Reportable [place] # (Auto) Not Reportable Baso # (Auto) Not Reportable Total Counted 100 Seg Neutrophils % 53.0 (38-70) % Band Neutrophils % 8.0 H (3-7) % Lymphocytes % (Manual) 21.0 L (25-45) % Monocytes % (Manual) 15.0 H (2-11) % Eosinophils % (Manual) 1.0 L (2-4) % Basophils % (Manual) 1.0 (0-1) % Metamyelocytes % 1.0 H (-0) % Neutrophils # (Manual) 4758 (8845-6011) /uL RBC Morphology Normal morphology Sodium 133 L (137-145) mmol/L Potassium 3.9 (3.4-5.1) mmol/L Chloride 97 L (98-107) mmol/L Carbon Dioxide 23 (22-32) mmol/L BUN 14 (7-17) mg/dL Creatinine 0.60 (0.52-1.04) mg/dL Estimated GFR > 60.0 (>60) mL/min BUN/Creatinine Ratio 23.3 H (6-22) Glucose 118 H (80-110) mg/dL Calcium 9.7 (8.4-10.2) mg/dL Blood Type AB Positive Antibody Screen Negative ECG Data Attestation: I personally reviewed and interpreted this ECG as follows: Prior ECG tracings: available for review Interpretation: Sinus rhythm rate of 78 P are 152 QRS is 72 and QTC of 428. No ST elevation or depression noted. Patient has prior from 04/02/2017 appearing similar. Discharge Plan Departure Patient Disposition: Admitted As Inpatient Clinical Impression: Fracture of femur, intertrochanteric, right, closed Qualifiers: Encounter type: initial encounter Fracture alignment: displaced Qualified Code(s): S72.141A - Displaced intertrochanteric fracture of right femur, initial encounter for closed fracture Discharge Date/Time: 09/20/19 19:47 Admit Date/Time: 09/20/19 19:35 Admit Provider: Sofya Gonsales
[2019-09-20 18:20] LABS: Neutrophils Absolute Manual 4758 /uL (3000-5900); Total Cells Counted 100
[2019-09-20 18:21] LABS: RBC Morphology Normal Morphology
[2019-09-20] MEDS: MORPHINE 4 MG/ML INJ IV (18:35)
[2019-09-20] MEDS: SODIUM CHLORIDE 0.9% 1,000 ML 100 ML IV (18:43)
--- NOTE | 2019-09-20 18:59 | DI.RAD.S_ITS ---
PROCEDURE: XR KNEE RT 1TO2V INDICATIONS: KNEE REQUESTED PER ORTHOPEDIC TECHNIQUE: 2 views of the knee were acquired. COMPARISON: None. FINDINGS: Bones: No fractures or dislocations. No suspicious bony lesions. Moderate lateral and medial osteoarthritic compartment narrowing. Chondrocalcinosis is present. Soft tissues: No joint effusion. No suspicious soft tissue calcifications. IMPRESSION: No visualized acute fracture or dislocation. However, if clinical concern and/or pain persist, short interval imaging followup in 7-10 days is recommended, as occult injury cannot be definitively excluded. Dictated by: Kita Resendiz M.D. on 09/20/2019 at 19:41 Approved by: Kita Resendiz M.D. on 09/20/2019 at 19:43
--- NOTE | 2019-09-20 20:29 | P.CONS_ITS ---
History of Present Illness Consult details Date Patient Seen: 09/21/19 Time Patient Seen: 08:00 Chief complaint: Hip Fx Reason for consult: right hip fracture Requesting provider: Leonel Ramirez Narrative: 84 yo F community ambulator. Fall from standing height to right hip. Pain/inability to ambulate. sen at ER and diagnosed with displaced R IT hip fx. PCP Dr. Gomez. Pt with hx osteoporosis. no tobacco. per notes: recovering from recent URI. no blood thinners. Patient's brother and daughter at bedside. Patient reports remote history of Fosamax 20 years ago. Meds Home Medications and Allergies Home Medications Medication Instructions Recorded Confirmed Type calcium carbonate [Calcium 500] 500 mg PO DAILY #0 02/24/11 09/20/19 History multivitamin 1 tab PO DAILY #0 02/24/11 09/20/19 History acetaminophen 650 mg PO Q4HP #0 08/17/12 09/20/19 History dicyclomine 20 mg tablet 20 mg PO QID PRN #90 tab 08/14/18 09/20/19 Rx Disabled Parking #1 each 11/02/18 09/19/19 Rx omeprazole 40 mg capsule,delayed 40 mg PO DAILY #30 cap 11/02/18 09/20/19 Rx release lorazepam 0.5 mg tablet 0.5 - 1 mg PO Q6H PRN #20 tab 01/14/19 09/20/19 Rx psyllium seed (sugar) 1 tbsp PO DAILY #1254 gram 07/01/19 09/20/19 Rx hyoscyamine sulfate 0.125 mg See Rx Instructions .ROUTE 07/04/19 09/20/19 Rx sublingual tablet .COMPLEX #45 each chlordiazepoxide-clidinium 1 cap PO DAILY 09/20/19 09/20/19 History lisinopril 40 mg PO DAILY 09/20/19 09/20/19 History Allergies Allergy/AdvReac Type Severity Reaction Status Date / Time levofloxacin [From LEVAQUIN] AdvReac Unknown dizziness, Verified 09/20/19 17:41 not sure if related or not...08/30/16 Review of Systems Review of Systems ROS: Yes All systems reviewed with the patient and are negative except as otherwise documented Exam Vital Signs (past 8 hours): - 09/20/19 18:03 09/20/19 18:30 09/20/19 18:44 Temperature Pulse Rate 78 90 Pulse Rate [Right Dorsalis Pedis] 89 Respiratory Rate 17 16 Blood Pressure Blood Pressure [Left Arm] 201/91 H 201/91 H Pulse Oximetry 99 98 09/20/19 19:00 09/20/19 19:15 09/20/19 20:00 Temperature 98.3 F Pulse Rate 76 78 81 Pulse Rate [Right Dorsalis Pedis] Respiratory Rate 17 14 18 Blood Pressure 152/75 H Blood Pressure [Left Arm] 112/57 L 133/63 Pulse Oximetry 98 98 97 Oxygen Delivery Method Room Air Oxygen Flow Rate 0 Narrative Exam Narrative: General alert oriented no acute distress lying in bed. Does ask for a pillow but otherwise no acute distress pain controlled. HEENT exam normocephalic atraumatic Respiratory exam unlabored on room air. Lungs clear to auscultation bilaterally CV exam regular rate and rhythm Abdomen soft Musculoskeletal exam. Nontender bilateral upper extremities and left lower extremity. Right lower extremity is shortened and externally rotated. Calf is soft. Thigh is soft. Demonstrates dorsiflexion plantar flexion of the ankles. Brisk capillary refill. Palpable dorsalis pedis pulse. Objective Imaging Right hip: My impression: X-rays AP pelvis and right lateral hip demonstrate displaced intertrochanteric femur fracture. Labs Result Diagrams: 09/20/19 17:41 09/20/19 17:43 Labs: Laboratory Results - last 24 hr 09/20/19 09/20/19 09/20/19 17:41 17:43 17:43 WBC 7.8 RBC 4.58 Hgb 13.6 Hct 39.7 MCV 86.6 MCH 29.6 MCHC 34.2 RDW 13.4 Plt Count 362 Neut % (Auto) Not Reportable Lymph % (Auto) Not Reportable [place] % (Auto) Not Reportable Eos % (Auto) Not Reportable Baso % (Auto) Not Reportable Lymph # (Auto) Not Reportable [place] # (Auto) Not Reportable Baso # (Auto) Not Reportable Total Counted 100 Seg Neutrophils % 53.0 Band Neutrophils % 8.0 H Lymphocytes % (Manual) 21.0 L Monocytes % (Manual) 15.0 H Eosinophils % (Manual) 1.0 L Basophils % (Manual) 1.0 Metamyelocytes % 1.0 H Neutrophils # (Manual) 4758 RBC Morphology Normal morphology Sodium 133 L Potassium 3.9 Chloride 97 L Carbon Dioxide 23 BUN 14 Creatinine 0.60 Estimated GFR > 60.0 BUN/Creatinine Ratio 23.3 H Glucose 118 H Calcium 9.7 Blood Type AB Positive Antibody Screen Negative Assessment & Plan Assessment and plan (1) Fracture of femur, intertrochanteric, right, closed: Problem details: See below Qualifiers: Encounter type: initial encounter Fracture alignment: displaced Hussein lified Code(s): S72.141A - Displaced intertrochanteric fracture of right femur, initial encounter for closed fracture Current visit: Yes Status: Acute Assessment & Plan narrative: R closed IT hip fx: displaced Hip fx in ambulatory pt is indication for operative stabilization. Plan for OR in AM. NPO at [place]. Admit to Medicine. Plan for cephalomedullary nail for 3 part IT fx. will need knee-full length femur imaging preop- pending in ED. postop will be WBAT. plan lovenox sq 40mg x 4 wks postop for DVT prophy unless contraindications. The risks and benefits of the procedure have been discussed with the patient even opportunity to ask questions. The risks of surgery include but are not limited to infection, malunion, nonunion, persistence of pain, damage to nerves and blood vessels, posttraumatic arthritis, DVT, PE, cardiopulmonary complications and . The patient expressed a thorough understanding of the risks and benefits of surgery and has elected to proceed. Consent was signed. Discussed the patient has been diagnosed with an extracapsular hip fracture. We discussed planned surgical treatment for pain control and early mobilization. Risks benefits were discussed in detail including potential need for transfusion in the perioperative period. Patient understands and agrees with the plan.
--- NOTE | 2019-09-20 20:32 | PC.NURSE ---
Addendum entered by Marisol Galdamez R.N. 09/20/19 22:55: Pain limits pt's ability to turn/reposition in bed. Pillows placed under hips BL as per pt request. Addendum entered by Marisol Galdamez R.N. 09/20/19 22:51: Unable to reposition pt onto left side to observe skin to back/buttocks right side. All other skin intact. Addendum entered by Marisol Galdamez R.N. 09/20/19 22:46: Phone conversation with Dr. Dru campos pain management. Orders as per emar. Pt reports comfortable when lying still. BL calf scd's in place. Addendum entered by Marisol Galdamez R.N. 09/20/19 21:09: Phone call from anesthesiologist. NPO after midnight order as well as 12 lead ekg. Pt reports starting to relax. Ice to right hip. Pillows adjusted for comfort. DaughterEwa, has left for the evening. Pt resting quietly in bed with eyes closed. No signs of distress or discomfort. Original Note: Pt to room 102 from E.R. with daughter accompanying. Pt experiences exquisite pain with transfer per slider board from stretcher to bed. RLE is externally rotated and shortened. Palpable pedal pulses BL. Ice to right hip. Pillow under hips BL per pt request to manage pain to right hip and referred pain to left hip and left upper back. Thompson to gravity with clear, yellow urine. Palpable pedal pulses BL. Daughter, Ewa, taking pt's valuables (jewelry and purse) to home. Call light available.
[2019-09-21] VITALS (18 sets, daily range): BP systolic 85–163; BP diastolic 45–97; PULSE 74–99; RESP 11–20; TEMP 36.6–37.7; O2SAT 95–100; BMI 21.2
--- NOTE | 2019-09-21 | DI.RAD.S_ITS ---
PROCEDURE: XR HIP W PEL IF DONE RT 2V INDICATIONS: Post Op TECHNIQUE: AP pelvis with lateral view of the right hip. COMPARISON: [facility], CR, XR HIP RT 1V, 09/21/2019, 9:53. [facility], CR, XR HIP W PEL IF DONE RT 2V, 09/20/2019, 17:41. FINDINGS: Bones: There is improved alignment status post open reduction and internal fixation of the previously described intertrochanteric fracture of the proximal right femur. An intramedullary andrew is demonstrated as well as 2 telescoping screws in the femoral neck. A locking screw is demonstrated within the proximal femoral shaft. Visualized osseous structures appear osteopenic. Soft tissues: Overlying postsurgical changes are demonstrated lateral to the right hip. IMPRESSION: 1. Improved alignment status post ORIF of right intertrochanteric fracture. Dictated by: Pawel Zacarias M.D. on 09/21/2019 at 11:38 Approved by: Pawel Zacarias M.D. on 09/21/2019 at 11:48
--- NOTE | 2019-09-21 | DI.RAD.S_ITS ---
PROCEDURE: XR HIP RT 1V INDICATIONS: Right Hip OR TECHNIQUE: 3 views of the hip were acquired. COMPARISON: [facility], , XR HIP W PEL IF DONE RT 2V, 09/20/2019, 17:41. FINDINGS: 3 intraoperative fluoroscopic views of the right hip demonstrate improved alignment status post open reduction and internal fixation of the patient's right femoral intertrochanteric fracture. There is an intramedullary andrew in the proximal femur with 2 screws traversing the femoral neck. A distal interlocking screw is also noted in the femoral shaft. IMPRESSION: 1. Intraoperative images demonstrate improved alignment status post ORIF of right femoral intertrochanteric fracture. Dictated by: Pawel Zacarias M.D. on 09/21/2019 at 10:28 Approved by: Pawel Zacarias M.D. on 09/21/2019 at 10:31
[2019-09-21] MEDS: MORPHINE 4 MG/ML INJ IV ×2 (00:20→07:09)
[2019-09-21] MEDS: SODIUM CHLORIDE 0.9% 1,000 ML 100 ML IV (05:12)
--- NOTE | 2019-09-21 05:23 | PC.NURSE ---
NOC Note: Pt given prn morphine x1 for pain 03/02 with good results. NPO at midnight. Sleeping soundly most of the night.
[2019-09-21 05:39] LABS: Bacteria Urine None Seen; RBC Urine None Seen (0-5/HPF); WBC Urine None Seen (0-5/HPF)
[2019-09-21 05:42] LABS: Appearance Urine UA CLEAR; Bilirubin Urine UA NEGATIVE (NEGATIVE); Color Urine UA YELLOW; Glucose Urine UA NEGATIVE (Negative); Ketones Urine UA TRACE (NEGATIVE); Leukocyte Esterase Urine UA NEGATIVE (NEGATIVE); Nitrite Urine UA NEGATIVE (Negative); Occult Blood Urine UA TRACE-LYSED (Negative); Protein Urine UA NEGATIVE (Negative); Urobilinogen Urine UA 0.2 E.U./dL (0.2)
[2019-09-21 05:43] LABS: pH Urine UA 5.5 (4.5-8.0)
[2019-09-21 07:05] LABS: Culture Indicated Urine Cult Not Indicated; Urine Comments Microscopic Normal
--- NOTE | 2019-09-21 08:39 | PM.PREOP ---
Pre-operative Note Interval Note History & Physical reviewed/Exam performed by Physician: Yes Changes to H&P: No
[2019-09-21] MEDS: fentaNYL 100 MCG/2 ML INJ 50 MCG IV ×2 (08:44→09:05)
[2019-09-21] MEDS: LACTATED RINGERS 1,000 ML 42 ML IV (08:45)
[2019-09-21] MEDS: CEFAZOLIN 2 GM/100 ML FROZ.PIGGY IV ×2 (09:05→17:25)
--- NOTE | 2019-09-21 09:56 | SUR.OPER ---
Head on pillow. Supine on fracture table with BILATERAL legS secured in traction. Arms across chest, secured with sheet.
--- NOTE | 2019-09-21 10:05 | SUR.HOLD ---
Fentanyl 50mcg given in holding prior to going to OR then fentanyl 50 mcg given in OR prior to moving pt, both per Dr. Whiteside.
[2019-09-21] MEDS: BUPIVACAINE 0.25% W/ EPI 30 ML VIAL INJ (10:30)
--- NOTE | 2019-09-21 10:34 | P.HP_ITS ---
History of Present Illness History of Present Illness Date Patient Seen: 09/21/19 Time Patient Seen: 11:30 Chief complaint: Hip Fx Narrative: Pt is a 84 yo woman with hypertension, osteoporosis, and anxiety who presented after ground level fall at home. Unable to obtain hx from the patient this morning as she was somnolent after surgery. Based on chart review, the pt had a mechanical fall in the kitchen when pivoting, falling onto her right hip. After falling, she was able to stand briefly, but then crawled to the phone for assistance. She reported significant right hip pain. The pt was seen by Dr Gomez on 09/19 in f/u for recent URI diagnosis, with symptoms gradually improving. Patient History Medical History Abdominal pain (Chronic) Anxiety (Chronic 09/16/13) Diverticulosis of large intestine (Chronic) Essential hypertension (Chronic 02/24/11) History of adenomatous polyp of colon (Chronic) Hypertension (Acute) Irritable bowel syndrome with diarrhea (Chronic 09/13/16) Irritable bowel syndrome without diarrhea (Chronic 05/28/15) Lung nodule seen on imaging study (Chronic 10/03/12) Mixed hyperlipidemia (Chronic 02/24/11) Osteoporosis (Chronic 02/24/11) Surgical History H/O colonoscopy (Resolved) History of appendectomy (Resolved) History of foot surgery (Resolved) Hx of appendectomy (Chronic) Family & Social History Social History: household members none Prior Living Arrangements House lives independently Yes caregiver/support person Yes: Step daughter Safety & Behavioral: Feels Safe in Current Yes Environment Been Physically Hurt or No Threatened By a Person Suicidal Ideation Description None Suicide Plan Description No Plan Tobacco & Substance use: Smoking Status Never smoker alcohol intake current alcohol intake frequency 0-2 drinks per day Substance Use Type does not use Meds Home Medications and Allergies Home Medications Medication Instructions Recorded Confirmed Type calcium carbonate [Calcium 500] 500 mg PO DAILY #0 02/24/11 09/20/19 History multivitamin 1 tab PO DAILY #0 02/24/11 09/20/19 History acetaminophen 650 mg PO Q4HP #0 08/17/12 09/20/19 History dicyclomine 20 mg tablet 20 mg PO QID PRN #90 tab 08/14/18 09/20/19 Rx Disabled Parking #1 each 11/02/18 09/19/19 Rx omeprazole 40 mg capsule,delayed 40 mg PO DAILY #30 cap 11/02/18 09/20/19 Rx release lorazepam 0.5 mg tablet 0.5 - 1 mg PO Q6H PRN #20 tab 01/14/19 09/20/19 Rx psyllium seed (sugar) 1 tbsp PO DAILY #1254 gram 07/01/19 09/20/19 Rx hyoscyamine sulfate 0.125 mg See Rx Instructions .ROUTE 07/04/19 09/20/19 Rx sublingual tablet .COMPLEX #45 each chlordiazepoxide-clidinium 1 cap PO DAILY 09/20/19 09/20/19 History lisinopril 40 mg PO DAILY 09/20/19 09/20/19 History Allergies Allergy/AdvReac Type Severity Reaction Status Date / Time levofloxacin [From LEVAQUIN] AdvReac Unknown dizziness, Verified 09/20/19 17:41 not sure if related or not...08/30/16 Review of Systems Review of Systems ROS: Yes unobtainable due to mental status Exam Vital Signs (past 8 hours): - 09/21/19 05:00 09/21/19 08:36 09/21/19 08:50 Temperature 98.7 F 98.6 F 99.5 F Pulse Rate 91 H 86 84 Respiratory Rate 16 18 20 Blood Pressure 125/61 138/63 129/67 Pulse Oximetry 95 97 97 Oxygen Delivery Method Room Air Oxygen Flow Rate 0 Narrative Exam Narrative: Gen: NAD, lying in bed sleeping, roused briefly to say hello and then fell back asleep again HEENT: moist mucus membranes CV: RRR, no murmurs Resp: clear to auscultation bilaterally Abd: soft, nontender, nondistended, normoactive bowel sounds Ext: no edema, peripheral pulses intact Neuro: unable to assess fully Objective Imaging xray: Radiologist's impression: PROCEDURE: XR HIP W PEL IF DONE RT 2V INDICATIONS: possible fracture TECHNIQUE: AP pelvis with lateral view(s) of the right hip(s). COMPARISON: None. FINDINGS: Bones: There is a comminuted intertrochanteric and proximal humeral diaphyseal fracture with mild displacement at the fracture site. There is no displacement at the acetabulum. Sacroiliac joints are markedly narrowed. Degenerative changes are present within the lower lumbar spine. Soft tissues: The visualized bowel gas pattern is normal. No suspicious soft tissue calcifications. IMPRESSION: Comminuted intertrochanteric and proximal right femoral fracture with displacement. Labs Result Diagrams: 09/20/19 17:41 09/20/19 17:43 Labs: Laboratory Results - last 24 hr 09/20/19 09/20/19 09/20/19 17:41 17:43 17:43 WBC 7.8 RBC 4.58 Hgb 13.6 Hct 39.7 MCV 86.6 MCH 29.6 MCHC 34.2 RDW 13.4 Plt Count 362 Neut % (Auto) Not Reportable Lymph % (Auto) Not Reportable [place] % (Auto) Not Reportable Eos % (Auto) Not Reportable Baso % (Auto) Not Reportable Lymph # (Auto) Not Reportable [place] # (Auto) Not Reportable Baso # (Auto) Not Reportable Total Counted 100 Seg Neutrophils % 53.0 Band Neutrophils % 8.0 H Lymphocytes % (Manual) 21.0 L Monocytes % (Manual) 15.0 H Eosinophils % (Manual) 1.0 L Basophils % (Manual) 1.0 Metamyelocytes % 1.0 H Neutrophils # (Manual) 4758 RBC Morphology Normal morphology Sodium 133 L Potassium 3.9 Chloride 97 L Carbon Dioxide 23 BUN 14 Creatinine 0.60 Estimated GFR > 60.0 BUN/Creatinine Ratio 23.3 H Glucose 118 H Calcium 9.7 Urine Color Urine Appearance Urine pH Ur Specific [place] Urine Protein Urine Glucose (UA) Urine Ketones Urine Occult Blood Urine Nitrate Urine Bilirubin Urine Urobilinogen Ur Leukocyte Esterase Urine RBC Urine WBC Urine Bacteria Ur Culture Indicated? Micro UA Comment Blood Type AB Positive Antibody Screen Negative 09/21/19 05:30 WBC RBC Hgb Hct MCV MCH MCHC RDW Plt Count Neut % (Auto) Lymph % (Auto) [place] % (Auto) Eos % (Auto) Baso % (Auto) Lymph # (Auto) [place] # (Auto) Baso # (Auto) Total Counted Seg Neutrophils % Band Neutrophils % Lymphocytes % (Manual) Monocytes % (Manual) Eosinophils % (Manual) Basophils % (Manual) Metamyelocytes % Neutrophils # (Manual) RBC Morphology Sodium Potassium Chloride Carbon Dioxide BUN Creatinine Estimated GFR BUN/Creatinine Ratio Glucose Calcium Urine Color Yellow Urine Appearance Clear Urine pH 5.5 Ur Specific [place] 1.020 Urine Protein Negative Urine Glucose (UA) Negative Urine Ketones Trace H Urine Occult Blood Trace-lysed Urine Nitrate Negative Urine Bilirubin Negative Urine Urobilinogen 0.2 Ur Leukocyte Esterase Negative Urine RBC None seen Urine WBC None seen Urine Bacteria None seen Ur Culture Indicated? Cult not indicated Micro UA Comment Microscopic normal Blood Type Antibody Screen Assessment & Plan Assessment & Plan narrative: Pt is a 84 yo woman with hypertension, osteoporosis, and anxiety who presented after ground level fall at home. Found to have intertrochanteric fracture and right femoral fracture with displacement. 1) Hip fracture: s/p surgical repair - Ortho consulted, appreciate care and recommendations - Postoperative Lovenox for 4 weeks - Weightbearing as tolerated - PT/OT - Calcium, Vitamin D, consider DEXA - Pain control as per surgery 2) Hypertension: - Continue home Lisinopril 3) Anxiety: - Continue home Lorazepam PRN Diet: Regular DVT ppx: Lovenox, SCDs Code: Full Dispo: Pending clearance from surgery, PT/OT eval. Will likely need placement in SNF. Anticipate at least 2 total midnights. Quality VTE Deep Vein Thrombosis/Pulmonary Embolism Present on Admission: No
--- NOTE | 2019-09-21 11:32 | PM.OP.1 ---
Operative Date/Time/Diagnoses Date of procedure: 09/21/19 Time of procedure: 09:40 Pre-op diagnosis: Right intertrochanteric hip fracture Post-op diagnosis: same Procedure & Clinicians Procedure: Cephalomedullary nail for fixation of right hip fracture CPT 15921 Same procedure as scheduled: Yes Indications: Mahsa is an 84-year-old female with a history of osteoporosis that fell while in her kitchen from standing height. She sustained a displaced right intertrochanteric hip fracture. She was indicated for operative fixation for stabilization, pain control and early mobilization. The risks and benefits of the procedure have been discussed with the patient even opportunity to ask questions. The risks of surgery include but are not limited to infection, malunion, nonunion, persistence of pain, damage to nerves and blood vessels, posttraumatic arthritis, DVT, PE, cardiopulmonary complications and . The patient expressed a thorough understanding of the risks and benefits of surgery and has elected to proceed. Consent was signed in the today. She has a remote history of bisphosphonate use but nothing in the last 20 years. We discussed risks benefits and alternatives including bleeding, transfusion risk or need, hardware failure, nonunion malunion, persistent pain or need for additional procedure. Surgeon: Danni Chow Click Yes if Unassisted: Yes Anesthesia Type: General and Local Operative Notes Findings: Displaced intertrochanteric femur fracture 3 part. Was stabilized with Nelson and Nephew intertan nail 11.5 x 18 Closure Type: primary Specimen(s): none sent Prosthetic devices, grafts, tissues, transplants, or devices: Nelson and Nephew inter oquendo nail 11.5 by 18 cm with 100 mm lag screw and interlocking compression screw Estimated Blood Loss (mL): 150 Blood products transfused: none Tourniquet time (min): 0 Procedure in detail: Procedure cephalomedullary nail intertrochanteric hip fracture the CPT code 61479 Side: Right Implant Nelson and Nephew 11.5 x 18 cm cephalomedullary nail intertan Procedure: The patient was seen and the site of surgery was marked in the preoperative area. This was the right hip. Patient was brought to the operating room and placed on the operative table and general anesthesia was administered. The patient was positioned on the fracture table in standard fashion with a well-padded boots and a padded peroneal post. An SCD was on the contralateral leg. A formal time-out was called to confirm the patient's side and site of surgery administration of preoperative antibiotics. All were in agreement. The operative leg was then gently manipulated under fluoroscopic guidance to obtain a closed reduction in near anatomic alignment. At this point the operative extremity was prepped and draped in the standard sterile manner. The starting point was marked out using fluoroscopic guidance and marked on the skin. A guidewire was placed percutaneously and the starting point was obtained. Incision was made over the guidewire. The guidewire was impinging against the posterior cortex so the opening drill was used partially then the ball-tipped guidewire was placed which passed nicely down into the femoral canal. Then the opening drill was inserted to the level of the lesser trochanter. The opening Reamer was then removed. An 18 cm cephalomedullary nail was selected. The 11.5 x 18 cm nail was then slid into the canal over the ball-tipped guidewire then the ball-tipped guidewire was removed. The nail was advanced to the proper depth and rotation. The guide for the cephalomedullary screw was then inserted into the external handle. An incision was made and the guide was placed down to the bone. A guidewire was placed to the proper depth into the femoral head and this was confirmed on AP and lateral imaging. The tip apex distance was evaluated and appropriate. Next the outer cortex was drilled for the interlocking screw and the anti rotation bar was placed. The cephalomedullary jewelry screw length was then measured off the drill. A 100 mm lag screw was selected and the corresponding 95 mm interlocking compression screw. A guidewire was then over drilled and the lag screw placed. The anti rotation bar was removed and then the locking compression screws were placed and confirmed on biplanar fluoroscopy. The integrated compression screw was tightened. Attention was turned to the distal interlock. This was placed with the guide in the standard technique. AP and lateral images were captured in the or confirming alignment hardware placement. Wounds were irrigated and closed in layers. 2-0 in the subcutaneous tissue and felicitas in the skin. 0.25% Marcaine with epinephrine was injected into the incision sites for local anesthetic. Sterile dressings were applied. There no immediate complications. Surgical counts were correct. The patient tolerated the procedure well was taken to recovery room for formal radiographs. Postoperative plan. Weightbear as tolerated to the surgical extremity. Work with physical therapy and occupational therapy. Two doses postop antibiotics. Discharge by primary team. Likely intermediate. Monitor hemoglobin and hematocrit postoperatively may require transfusion if needed. Encourage incentive spirometry. SCDs and Lovenox for DVT prophylaxis. Recommend Lovenox 4 weeks for hip fracture. Follow-up scheduled [facility] in 2 weeks for wound check and repeat x-rays. Keep dressing clean dry and intact. May change of saturated. Complications: none Post-operative Condition: stable Disposition: PACU Plan for aftercare: Weightbear as tolerated right lower extremity. SCDs an lovenox 40 mg subcu daily for DVT prophylaxis. Recommend Lovenox x4 weeks for postoperative DVT prophylaxis. Follow-up in 2 weeks for repeat x-rays and staple removal. Keep dressings clean and dry. May change dressing is saturated. Will have 2 doses postop of antibiotics, Ancef.
--- NOTE | 2019-09-21 11:37 | SUR.PHASEI ---
Stable PACU stay, report to Livier almazan, RN not available to call me back.
[2019-09-21] MEDS: LACTATED RINGERS 1,000 ML 75 ML IV (13:15)
--- NOTE | 2019-09-21 13:17 | PC.NURSE ---
Addendum entered by Geri Mancuso R.N. 09/21/19 15:02: 1445: Pt alert, talking with brother Aleksandar. Reports pain 11/30. Medicated with tylenol and 5mg oxycodone. Also assisted to reposition for comfort. Takes meds whole, one at a time, with water. Original Note: 1200: Pt to room 218 from PACU. Drowsy/oriented. Denies pain, vitals stable. Ra 98% on 1L NC. Dressing to right hip c/d/i, pedal pulse strong. Assisted by surgical RNs to reposition/boost patient. SCDs applied. Pt oriented to new room/call light. Will need reinforcement teaching due to patient being so sleepy. Bed alarm on.
[2019-09-21] MEDS: ACETAMINOPHEN 325 MG TABLET 975 MG PO ×2 (14:33→20:51)
[2019-09-21] MEDS: lisinopriL 20 MG TABLET 40 MG PO (14:42)
[2019-09-21] MEDS: OXYCODONE IR 5 MG TABLET PO ×2 (14:43→20:52)
--- NOTE | 2019-09-21 16:40 | PT-IP ANOTE ---
checked on pt 1540 and refused PT. stated that she wants to rest for now and to come back later. checked on pt again 1640 and pt stated that her pain meds is wearing off and that she better not do PT. educated pt on importance of PT and pt agreed. stated that she will do it tomorrow.
[2019-09-21] MEDS: DOCUSATE 100 MG CAPSULE PO (20:52)
--- NOTE | 2019-09-21 22:24 | PC.NURSE ---
Evening note: Mahsa resting in bed, oriented x 3 and to situation. Reported pain 4-6 tonight, medicated with one tab oxycodone & tylenol. CMS intact, she is actively doing foot pumps and ankle waves in bed. Declined to work with PT earlier this afternoon, saying I will get up tomorrow. I again asked if she would like to get out of bed, later this evening, she refused, saying no, tomorrow. 2 drsgs to R hip are CDI, ice pack in place. Encouraged her to shift bottom around in bed & to relieve pressure areas. Good appetite, tolerating regular diet. Fall precautions in place, alarm active for safety.
[2019-09-22] MEDS: CEFAZOLIN 2 GM/100 ML FROZ.PIGGY IV (00:45)
[2019-09-22] MEDS: LACTATED RINGERS 1,000 ML 75 ML IV (02:46)
[2019-09-22 04:15] VITALS: BP 109/55; PULSE 79; RESP 18; TEMP 36.9; O2SAT 98
[2019-09-22] MEDS: OXYCODONE IR 5 MG TABLET PO ×4 (04:29→17:31)
[2019-09-22] MEDS: PANTOPRAZOLE 40 MG TABLET PO (05:27)
[2019-09-22 05:30] LABS: Hematocrit 23.9 % (36-46); Hemoglobin 8.2 g/dL (12.0-16.0); Mean Corpuscular HGB Conc 34.4 % (30-36); Mean Corpuscular Hemoglobin 29.7 PG (26-34); Mean Corpuscular Volume 86.4 fL (80-100); Platelet Count 235 X10^3/uL (150-400); Red Blood Cell Count 2.76 X10^6/uL (4.0-5.2); Red Cell Distribution Width 13.3 % (11.6-14.8); White Blood Cell Count 10.6 X10^3/uL (4.5-11.0)
[2019-09-22 07:45] VITALS: BP 101/57; PULSE 90; RESP 16; TEMP 37.3; O2SAT 98
[2019-09-22] MEDS: DOCUSATE 100 MG CAPSULE PO ×2 (08:53→19:57)
[2019-09-22] MEDS: ACETAMINOPHEN 325 MG TABLET 975 MG PO ×3 (08:53→19:56)
[2019-09-22] MEDS: CALCIUM CARBONATE 500 MG TAB PO (08:53)
[2019-09-22] MEDS: ENOXAPARIN 40 MG/0.4 ML SYRINGE SUBCUT (08:55)
[2019-09-22] MEDS: PSYLLIUM HUSK 1 PACKET PO (08:55)
--- NOTE | 2019-09-22 09:03 | P.PN_ITS ---
Subjective Subjective Date Patient Seen: 09/22/19 Time Patient Seen: 09:03 Interval history: Postop day 1 right cephalomedullary nail for displaced intertrochanteric femur fracture with Dr. Chow Doing well sitting up in bed comfortable and conversive. Pain controlled. Pleasant and appreciative 84-year-old female Does complain of some back soreness. Lives in [place]. Daughter lives about 10 minutes away Exam Vital Signs (past 8 hours): - 09/22/19 04:15 09/22/19 07:45 Temperature 98.4 F 99.2 F Pulse Rate 79 90 Respiratory Rate 18 16 Blood Pressure 109/55 L 101/57 L Pulse Oximetry 98 98 Oxygen Delivery Method Room Air Oxygen Flow Rate 0 Narrative Exam Narrative: General: Alert oriented female no acute distress HEENT exam: Normocephalic atraumatic Respiratory exam unlabored on room air CV exam regular rate and rhythm Musculoskeletal exam: Right hip dressing clean dry and intact. Thigh is soft. Calf is soft. SCDs bilaterally. Demonstrates dorsiflexion plantar flexion of the ankles. Brisk capillary refill. Sensation grossly intact to light touch. Objective Labs Result Diagrams: 09/22/19 05:05 09/20/19 17:43 Labs: Laboratory Results - last 24 hr 09/22/19 05:05 WBC 10.6 RBC 2.76 L Hgb 8.2 L Hct 23.9 L MCV 86.4 MCH 29.7 MCHC 34.4 RDW 13.3 Plt Count 235 Assessment & Plan Post-op Assessment and plan (1) Acute blood loss as cause of postoperative anemia: Postoperative Procedures: Procedures Operation Date: 09/21/19 09:00 Actual Procedures Side Surgeon p Intramedullary Nailing Femur Right Danni Chow MD Postop day 1 cephalomedullary nail right intertrochanteric femur fracture. Hemoglobin 8.2. Acute blood loss anemia postoperative. Vital signs stable. Does not appear to need transfusion at this time. Did discuss may consider iron supplementation. Recommend calcium and vitamin D for osteoporosis and consider DEXA scan if not recent. Weightbear as tolerated right lower extremity. Work with physical therapy. SCDs and Lovenox for DVT prophylaxis. Follow-up [facility] 10-14 days for staple removal and x-rays. Quality VTE Deep Vein Thrombosis/Pulmonary Embolism Present on Admission: No
[2019-09-22 11:24] VITALS: BP 119/53; PULSE 87; RESP 16; TEMP 36.6; O2SAT 97
--- NOTE | 2019-09-22 11:41 | PM.PN.1 ---
Subjective Subjective Date Patient Seen: 09/22/19 Time Patient Seen: 09:15 Interval history: The patient reports that she is overall feeling well. Her pain is adequately controlled. She is very happy that she is able to move her toes in bed. She has no specific concerns today. Exam Vital Signs (past 8 hours): - 09/22/19 04:15 09/22/19 07:45 09/22/19 11:24 Temperature 98.4 F 99.2 F 98 F Pulse Rate 79 90 87 Respiratory Rate 18 16 16 Blood Pressure 109/55 L 101/57 L 119/53 L Pulse Oximetry 98 98 97 Oxygen Delivery Method Room Air Oxygen Flow Rate 0 Narrative Exam Narrative: General: No acute distress, sitting comfortably in bed, appears well CV: Regular rate and rhythm, no murmurs Respiratory: Clear to auscultation bilaterally Abdomen: Soft, nontender, nondistended, normoactive bowel sounds Extremities: No edema, peripheral pulses intact, moving both feet Neuro: No gross deficits, sensation intact bilateral lower extremity Objective Labs Result Diagrams: 09/22/19 05:05 09/20/19 17:43 Labs: Laboratory Results - last 24 hr 09/22/19 05:05 WBC 10.6 RBC 2.76 L Hgb 8.2 L Hct 23.9 L MCV 86.4 MCH 29.7 MCHC 34.4 RDW 13.3 Plt Count 235 Assessment & Plan Assessment & Plan narrative: Pt is a 84 yo woman with hypertension, osteoporosis, and anxiety who presented after ground level fall at home. Found to have intertrochanteric fracture and right femoral fracture with displacement. 1) Hip fracture: s/p surgical repair - Ortho consulted, appreciate care and recommendations - Postoperative Lovenox for 4 weeks - Weightbearing as tolerated - PT/OT to work with the patient today - Calcium, Vitamin D, consider DEXA - Pain control as per surgery - Colace BID, especially in light of iron supplement 2) Hypertension: Borderline hypotensive - Hold home Lisinopril 3) Acute blood loss anemia from surgery: - Start iron supplement - No indication for transfusion at this point 4) Anxiety: - Continue home Lorazepam PRN Diet: Regular DVT ppx: Lovenox, SCDs Code: Full Dispo: Pending clearance from surgery, PT/OT eval. Will likely need placement in SNF. Quality VTE Deep Vein Thrombosis/Pulmonary Embolism Present on Admission: No
[2019-09-22] MEDS: FERROUS GLUCONATE 324 MG TABLET PO (12:22)
--- NOTE | 2019-09-22 12:32 | PT.IIE ---
Current Diagnoses Acute posthemorrhagic anemia (09/20/19) Displaced intertrochanteric fracture of right femur, initial encounter for closed fracture (09/20/19) Surgery Performed Operation Date: 09/21/19 09:00 Actual Procedures p Intramedullary Nailing Femur(Right) - Danni Chow MD Surgical History (Last Reviewed 09/20/19 @ 20:33 by Danni Chow MD) H/O colonoscopy (Resolved) History of appendectomy (Resolved) History of foot surgery (Resolved) Hx of appendectomy (Chronic) Medical History (Last Reviewed 09/20/19 @ 20:33 by Danni Chow MD) Abdominal pain (Chronic) Anxiety (Chronic 09/16/13) Diverticulosis of large intestine (Chronic) Essential hypertension (Chronic 02/24/11) History of adenomatous polyp of colon (Chronic) Hypertension (Acute) Irritable bowel syndrome with diarrhea (Chronic 09/13/16) Irritable bowel syndrome without diarrhea (Chronic 05/28/15) Lung nodule seen on imaging study (Chronic 10/03/12) Mixed hyperlipidemia (Chronic 02/24/11) Osteoporosis (Chronic 02/24/11) Physical Therapy Inpatient Evaluation/Re-Eval M1 PT/OT-IP Prior Functional Status Start: 09/22/19 08:25 Freq: NEEDED Status: Active Protocol: Document 09/22/19 12:07 AW (Rec: 09/22/19 12:32 AW [id number]) Medical Review Prior Functional Status Medical History Reviewed Yes Diet/Fluid Consistency Regular Communication WFL Mobility and Gait Independent without assistive device Activities of Daily Living and IADL's Independent Prior Functional Level (Other details) Pt reports no falls in the past two years until current episode. She drives, manages her own medications and finances. Social History Household Members none Living Arrangements Apartment/Condo Number of Floors (Floors) One Floor Number of Stairs To Enter/Railing? Pt lives in a [facility] in [place]. [facility] with narrow bilateral rails. Home Environment High Toilet,Tub/Shower Home Equipment Front Wheel Walker,Shower Seat without Backrest,Grab Bars In Shower Additional Social History Comment Pt lives alone. Her step- daughter, Ewa, visits daily and the neighbors in her building all keep track of one another. There are no supportive services in the home M2 PT-IP Current Condition Start: 09/22/19 08:25 Freq: NEEDED Status: Active Protocol: Document 09/22/19 12:07 AW (Rec: 09/22/19 12:32 AW [id number]) Physical Therapy Current Condition Current Condition Evaluation Date 09/22/19 Treatment Diagnosis ORIF R intertroch hip fracture , difficulty in walking Onset Date 09/20/19 Precautions Other Precautions osteoporosis, high fall risk Weight Bearing Status Weight Bearing Status Weight Bear as Tolerated M3 PT-IP Subjective Start: 09/22/19 08:25 Freq: NEEDED Status: Active Protocol: Document 09/22/19 12:07 AW (Rec: 09/22/19 12:32 AW [id number]) Subjective Physical Therapy Visit Type Type Initial Evaluation Visit Start Time 10:28 Visit Stop Time 11:14 Total Visit Minutes 46 Number of [employer] Visits 0 Physical Therapy Visit Comments Patient Comments Pt expresses anxiety about moving, but is willing to attempt. Patient Goals To get strong enough to go home Therapy Pain Assessment Pain When Pain Assessed During Mobility Pain Present Pain Present Pain Reported Location Right hip Scale Used not quantified Description Sharp,Stabbing,With Movement Pain Behaviors Calling Out,Crying,Facial Grimacing,Guarding,Wincing Pain Management Techniques Distraction,Re-positioning, Timing of Activity with Medications M4 PT-IP Mobility and Gait Start: 09/22/19 08:25 Freq: NEEDED Status: Active Protocol: Document 09/22/19 12:07 AW (Rec: 09/22/19 12:32 AW [id number]) PT-Bed Mobility Assessment Rolling Type of Rolling Roll to Left Level of Assist Moderate Assistance,1 Person Assistance Supine to Sit Supine to Sit Maximum Assistance,1 Person Assistance,Head of Bed Elevated,Bedrails Sit to Supine Sit to Supine Maximum Assistance,2 Person Assistance Scooting Scooting to Edge of Bed Maximum Assistance Scooting Up and Down in Bed Dependent PT-Transfer Assessment Sit to and From Stand Sit to and from Stand Maximum Assistance,2 Person Assistance,Use of Upper Extremities Equipment Transfer Assistive Device Gait Belt,Front Wheeled Walker Orthotic/Prosthetic Devices or Brace: No Comments Mobility Comments Pt required max A x 1 for bed mobility. She cried out with each attempt to rotate her hips but was able to maintain seated balance and to slowly inch her hips toward EOB, ultimately requiring max A x 1 to move far enough to get her feet on the floor. Pt attempted to stand 4 times using FWW and max A x 1-2 but was unable to respond to cues to shift her weight forward in order to accept weight on her feet. After the 4th attempt, pt agreed to return to supine, requiring max A x 2. Pt was repositioned in the bed with call light and all needs within reach and nursing attending Gait Assessment Comments Gait Comments Pt unable at this time Stair Climbing Assessment Comments Stair Climbing Comments Not assessed. PT-Balance Assessment Sitting Balance and Reactions Static Sitting Balance Ability Good Dynamic Sitting Balance Ability Good M5 PT-IP Objective Assessments Start: 09/22/19 08:25 Freq: NEEDED Status: Active Protocol: Document 09/22/19 12:07 AW (Rec: 09/22/19 12:32 AW [id number]) Orientation Orientation/Cognition Level of Alertness Alert Orientation Name,Day of Week,Place, Situation Language Function Ability No Deficits Noted Safety Awareness Understands Safety Issues Comments Pt alert and oriented but highly anxious which may be interfering with cognitive processes. Cognitive screening may be warranted. Gross Range of Motion Lower Extremity ROM Assessment Bilaterally Impaired Strength Lower Extremity Strength Assessment Bilaterally Impaired Knee 4-/5 Ankle 4-/5 Coordination Assessment Gross Coordination Gross Coordination WNL Sensation Assessment Sensation Gross Sensation WNL M6 PT-IP Treatment Start: 09/22/19 08:25 Freq: NEEDED Status: Active Protocol: Document 09/22/19 12:07 AW (Rec: 09/22/19 12:32 AW [id number]) Physical Therapy Treatment Exercises Exercises Ankle Pumps,Gluteal Sets,Quad Sets,Heel Slides Education Education Provided Precautions,Weight Bearing Status,Post-Op Packet,Safety Other Treatments Other Treatment Performed Pt unable to perform active heel slides. Passive heel slides limited by pt guarding. M7 PT-IP Assessment and Plan Start: 09/22/19 08:25 Freq: NEEDED Status: Active Protocol: Document 09/22/19 12:07 AW (Rec: 09/22/19 12:32 AW [id number]) PT Summary Assessment and Plan Potential Rehabilitation Potential Good Status of Condition at Evaluation Evolving Summary Impairments Pain,ROM,Strength,Balance,Bed Mobility,Transfers,Gait Assessment Summary Mahsa is an active 84 yo woman seen for PT evaluation on POD1 following ORIF of right intertrochanteric fracture. She is WBAT and has no hip precautions. At baseline, pt lives alone and is independent with all functional mobility. On evaluation, pain and anxiety limited her movement, requiring max A x 1-2 for all mobility. She was unable to stand. Pt is significantly debilitated from baseline function and unsafe for her home environment. She will require SNF rehab at discharge . Goals Bed Mobility Goal Contact Guard Assistance Transfer Goal Contact Guard Assistance,Front Wheeled Walker Gait Goal Contact Guard Assistance,Front Wheel Walker Gait Distance 50 Other Goals - up/down 4 stairs with B rails CGA Days to Meet Goals 10 Frequency of Treatment Frequency Of Treatment Twice a Day Treatment Plan Physical Therapy Treatment Plan Bed Mobility Training,Transfer Training,Gait Training, Therapeutic Exercise,Balance Retraining,Post Op Education, Discharge Planning,Hot or Cold Pack,Neuromuscular Re-ed, Coordination Retraining,Manual Therapy Other Recommendations and Next Treatment bed mobility, physiological Focus quieting, sit to stand, transfer to chair Recommendations To Nursing Amount of Assist Needed PT/OT Assist Only Discharge Recommendations PT Discharge Recommendations SNF Rehab Transportation Needs at Discharge Wheelchair/Cabulance
--- NOTE | 2019-09-22 14:13 | PT.IPTN ---
Current Diagnoses Acute posthemorrhagic anemia (09/20/19) Displaced intertrochanteric fracture of right femur, initial encounter for closed fracture (09/20/19) Surgery Performed Operation Date: 09/21/19 09:00 Actual Procedures p Intramedullary Nailing Femur(Right) - Danni Chow MD Physical Therapy Treatment Note M2 PT-IP Current Condition Start: 09/22/19 08:25 Freq: NEEDED Status: Active Protocol: Document 09/22/19 12:07 AW (Rec: 09/22/19 12:32 AW [id number]) Physical Therapy Current Condition Current Condition Evaluation Date 09/22/19 Treatment Diagnosis ORIF R intertroch hip fracture , difficulty in walking Onset Date 09/20/19 Precautions Other Precautions osteoporosis, high fall risk Weight Bearing Status Weight Bearing Status Weight Bear as Tolerated M3 PT-IP Subjective Start: 09/22/19 08:25 Freq: NEEDED Status: Active Protocol: Document 09/22/19 13:58 AW (Rec: 09/22/19 14:13 AW [id number]) Subjective Physical Therapy Visit Type Type Treatment Note Visit Start Time 13:15 Visit Stop Time 13:54 Total Visit Minutes 39 Physical Therapy Visit Comments Patient Comments Pt believes she is feeling better and wants to try to stand. Therapy Pain Assessment Pain When Pain Assessed During Mobility Pain Present Pain Present Pain Reported Location Right hip Intensity 5 Scale Used Numeric (1 - 10) Pain Management Techniques Distraction,Re-positioning, Timing of Activity with Medications M4 PT-IP Mobility and Gait Start: 09/22/19 08:25 Freq: NEEDED Status: Active Protocol: Document 09/22/19 13:58 AW (Rec: 09/22/19 14:13 AW [id number]) PT-Bed Mobility Assessment Rolling Type of Rolling Bilateral Level of Assist Minimal Assistance,1 Person Assistance Supine to Sit Supine to Sit Maximum Assistance,1 Person Assistance,Head of Bed Elevated,Bedrails Sit to Supine Sit to Supine Maximum Assistance,1 Person Assistance Scooting Scooting to Edge of Bed Moderate Assistance Scooting Up and Down in Bed Dependent PT-Transfer Assessment Sit to and From Stand Sit to and from Stand Maximum Assistance,2 Person Assistance,Use of Upper Extremities Equipment Transfer Assistive Device Gait Belt,Front Wheeled Walker Orthotic/Prosthetic Devices or Brace: No Comments Mobility Comments Pt required max A x 1 with heavy use of bed features to complete supine to sit. Pt does better if allowed to move at her own pace but requires max A to move her operative leg. She was able to sit EOB with her feet on the floor, but positions her RLE in abduction and internal rotation. She attempted to stand 4 times using FWW and max A x 1 without success, unable to shift her weight onto her feet. After multiple attempts, pt requested respositioning in the bed. Return to supine was completed with max A x 1. Pt was left with call light and all needs within reach and with nursing attending. Gait Assessment Comments Gait Comments Pt unable at this time M5 PT-IP Objective Assessments Start: 09/22/19 08:25 Freq: NEEDED Status: Active Protocol: Document 09/22/19 12:07 AW (Rec: 09/22/19 12:32 AW [id number]) Orientation Orientation/Cognition Level of Alertness Alert Orientation Name,Day of Week,Place, Situation Language Function Ability No Deficits Noted Safety Awareness Understands Safety Issues Comments Pt alert and oriented but highly anxious which may be interfering with cognitive processes. Cognitive screening may be warranted. Gross Range of Motion Lower Extremity ROM Assessment Bilaterally Impaired Strength Lower Extremity Strength Assessment Bilaterally Impaired Knee 4-/5 Ankle 4-/5 Coordination Assessment Gross Coordination Gross Coordination WNL Sensation Assessment Sensation Gross Sensation WNL M6 PT-IP Treatment Start: 09/22/19 08:25 Freq: NEEDED Status: Active Protocol: Document 09/22/19 13:58 AW (Rec: 09/22/19 14:13 AW [id number]) Physical Therapy Treatment Exercises Exercises Ankle Pumps,Gluteal Sets,Quad Sets,Heel Slides Education Education Provided Weight Bearing Status,Safety Other Treatments Other Treatment Performed Improved passive heel slides with slight active HS involvement. M7 PT-IP Assessment and Plan Start: 09/22/19 08:25 Freq: NEEDED Status: Active Protocol: Document 09/22/19 13:58 AW (Rec: 09/22/19 14:13 AW [id number]) PT Summary Assessment and Plan Summary Assessment Summary Mahsa is eager to move more but is limited this visit by high irritability of pain symptoms and symptomatic hypotension (BP 94/67 in sitting with pt complaint of lightheadedness). Pt does best with extra time and when allowed to do as much as she can with limited assist before intervening. Pt benefits from frequent reminders to concentrate on her breathing. Goals Bed Mobility Goal Contact Guard Assistance Transfer Goal Contact Guard Assistance,Front Wheeled Walker Gait Goal Contact Guard Assistance,Front Wheel Walker Gait Distance 50 Other Goals - up/down 4 stairs with B rails CGA Days to Meet Goals 10 Frequency of Treatment Frequency Of Treatment Twice a Day Treatment Plan Physical Therapy Treatment Plan Bed Mobility Training,Transfer Training,Gait Training, Therapeutic Exercise,Balance Retraining,Post Op Education, Discharge Planning,Hot or Cold Pack,Neuromuscular Re-ed, Coordination Retraining,Manual Therapy Other Recommendations and Next Treatment bed mobility, physiological Focus quieting, sit to stand, transfer to chair Recommendations To Nursing Amount of Assist Needed PT/OT Assist Only,Mechanical Lift Discharge Recommendations PT Discharge Recommendations SNF Rehab Transportation Needs at Discharge Wheelchair/Cabulance
--- NOTE | 2019-09-22 15:25 | CM.DANOTE ---
Addendum entered by Lucrecia Nelson 09/22/19 15:35: Patient concerned about eye appointment that she has downstairs on Monday09-27-2019. Patient requesting assistance with cancelling appointment. Will pass on to covering next week. FERNANDO Original Note: DCP/Assessment: Reviewed chart. Patient is a 84yr old female admitted to . with right femoral fracture with displacement. PCP is Dr. Gomez. Primary payor is 1)Medicare 2)[facility]. Met with patient explained CM/SW role. Patient reports that she slipped and fell in her kitchen causing fracture to right hip. Patient under went repair on 09-21-19. Current recommendation is SNF for rehab. Patient eligible on 09-23-2019. Patient aware and agreeable to short SNF stay. First choice is [facility]. Patient provided with SNF choice list if second choice needed. Patient reports that prior to admit she was completely I with all ADL's. Patient drives at baseline and denies using any DME. Patient with noted history of anxiety takes loraepam 0.5mg q6hrs prn. Placed call to [facility], spoke with [facility] referral given. P: [facility] reviewing for potential admit within the next 24-48hrs. PASRR needs to be completed. KRYS Wright Discharge Planning/Care Management Discharge Assessment Start: 09/22/19 15:23 Freq: Status: Active Protocol: Document 09/22/19 15:23 FERNANDO (Rec: 09/22/19 15:25 [email or web address] [id number]) Discharge Planning Assessment Assigned Telephone Cleaner KRYS Wright Contact Information Aleksandar Mcneal (brother) [phone] Advance Directives? Yes History Provided By Patient,Medical Record Has Patient been admitted in last 30 No days? Prior Living Arrangements Apartment/Condo Household Members none Type of transporation used prior to Drives own vehicle admit Independent with ADL's Yes Is patient alert and oriented? Yes Caregiver for Another No Patient/Family Preference Long Term Facility Barriers to Discharge No Discharge Plan Long Term Facility Referrals Initiated Long Term If patient plan is SNF: Has PASSR been No completed? Medicare Choice List Provided Yes SNF/HH Preference [facility] is first SNF choice Whiteboard Updated in Patient Room with Yes name and ext. # of Telephone Cleaner Review Status In Process Next Review Type Continued Stay Review
[2019-09-22 15:40] VITALS: BP 124/68; PULSE 81; RESP 21; TEMP 36.9; O2SAT 99
[2019-09-22] MEDS: CALCIUM CITRATE 200 MG TABLET 600 MG PO (17:27)
[2019-09-22 19:25] VITALS: BP 116/63; PULSE 85; RESP 20; TEMP 36.7; O2SAT 97
[2019-09-22 23:50] VITALS: BP 133/61; PULSE 88; RESP 17; TEMP 37.4; O2SAT 95
[2019-09-23] MEDS: OXYCODONE IR 5 MG TABLET PO ×4 (00:10→13:43)
[2019-09-23 04:40] VITALS: BP 145/78; PULSE 91; RESP 20; TEMP 36.6; O2SAT 95
[2019-09-23] MEDS: PANTOPRAZOLE 40 MG TABLET PO (06:02)
--- NOTE | 2019-09-23 08:32 | PM.PN.1 ---
Subjective Subjective Date Patient Seen: 09/23/19 Time Patient Seen: 08:32 Interval history: Patient is in good spirits this morning. She is sitting up eating her breakfast. Really has no complaints. Has not really been up out of bed with physical therapy as yet. Was able to get up and stand very very briefly yesterday Exam Vital Signs (past 8 hours): - 09/23/19 04:40 Temperature 97.8 F Pulse Rate 91 H Respiratory Rate 20 Blood Pressure 145/78 H Pulse Oximetry 95 Oxygen Delivery Method Room Air Oxygen Flow Rate 0 Objective Labs Result Diagrams: 09/22/19 05:05 09/20/19 17:43 Assessment & Plan Assessment & Plan narrative: 1. Status post hip fracture and ORIF, postop day 2-continue rehab as per Orthopedic surgery. Patient not surprisingly has been slow to mobilize. This would be consistent with her prior status She will need to go to halfway for continued recovery when ready for discharge from the hospital 2. Anxiety-currently stable. 3. Irritable bowel syndrome-currently stable. 4. Hypertension-no active issues with this either. Numbers have been up and down but adequately controlled for now Overall patient is doing well. No medical issues identified at this time. Patient is simply recovering from her orthopedic surgery to repair fractured hip. Note: Greater than 20 minutes was spent evaluating the patient on the floor, including examining the patient, discussing clinical course with clinical and nursing staff, reviewing clinical course in the computer, preparing documentation and writing orders for continued management of care, discussing status with family as appropriate, reviewing plans for the next 24 hours with both patient/family and nursing staff as appropriate. Quality VTE Deep Vein Thrombosis/Pulmonary Embolism Present on Admission: No
[2019-09-23] MEDS: DOCUSATE 100 MG CAPSULE PO (08:40)
[2019-09-23] MEDS: ACETAMINOPHEN 325 MG TABLET 975 MG PO ×2 (08:40→13:46)
[2019-09-23] MEDS: FERROUS GLUCONATE 324 MG TABLET PO (08:42)
[2019-09-23] MEDS: CALCIUM CARBONATE 500 MG TAB PO (08:42)
[2019-09-23] MEDS: CALCIUM CITRATE 200 MG TABLET 600 MG PO (08:43)
[2019-09-23] MEDS: ENOXAPARIN 40 MG/0.4 ML SYRINGE SUBCUT (08:43)
[2019-09-23] MEDS: CHOLECALCIFEROL (VITAMIN D3) 5,000 UNIT TABLET 5000 UNIT PO (08:43)
[2019-09-23] MEDS: PSYLLIUM HUSK 1 PACKET PO (08:44)
[2019-09-23 08:49] VITALS: BP 115/56; PULSE 107; RESP 22; TEMP 37.5; O2SAT 99
--- NOTE | 2019-09-23 11:00 | PT-IP ANOTE ---
RN stated pt has been nauseous all morning and requested pt be seen later today.
[2019-09-23] MEDS: ONDANSETRON 4 MG ODT PO (11:12)
[2019-09-23 11:14] VITALS: BP 139/63; PULSE 97; RESP 17; TEMP 37.2; O2SAT 97
--- NOTE | 2019-09-23 13:20 | PM.DS.1 ---
History of Present Illness History of Present Illness Date Patient Seen: 09/23/19 Chief complaint: Hip Fx Narrative: Please see HPI previously recorded in the chart. Discharge Providers Provider Date of admission: 09/20/19 19:35 Discharge Date: 09/23/19 Primary care physician: Brain Gomez MD Consults: 09/20/19 20:22 Consult to Dietitian, Adult Routine Comment: Reason For Exam: decline in nutritional intake 09/21/19 12:13 Consult to Discharge Planning Routine Comment: Consult to Physical Therapy Evaluate & Treat Comment: Physician Instructions: Evaluate and Treat Consult to Respiratory Therapy Evaluate & Treat Comment: Physician Instructions: Evaluate and treat Discharge provider: Griselda Wrigth PA-C Summary Hospital Course Discharge Diagnosis: s/p Cephalomedullary nail for fixation of right hip fracture Hospital Course: Mahsa is an 84-year-old female with a history of osteoporosis that fell while in her kitchen from standing height. She sustained a displaced right intertrochanteric hip fracture. She was indicated for operative fixation for stabilization, pain control and early mobilization. The risks and benefits of the procedure have been discussed with the patient even opportunity to ask questions. The risks of surgery include but are not limited to infection, malunion, nonunion, persistence of pain, damage to nerves and blood vessels, posttraumatic arthritis, DVT, PE, cardiopulmonary complications and . The patient expressed a thorough understanding of the risks and benefits of surgery and has elected to proceed. Consent was signed in the today. She has a remote history of bisphosphonate use but nothing in the last 20 years. We discussed risks benefits and alternatives including bleeding, transfusion risk or need, hardware failure, nonunion malunion, persistent pain or need for additional procedure. After obtaining informed consent she was taken to the operating room where she underwent placement of a cephalomedullary nail for fixation or her right intertrochanteric hip fracture which she tolerated well without complications. Postoperatively she has been progressing slowly. She has worked with PT/OT and mobility remains poor. Due to poor mobility castañeda catheter has remained in place. Pain has been adequately controlled. On POD#2 she was deemed stable for discharge to SNF for postoperative rehab. Status at Discharge Cognitive/behavioral status at discharge: oriented Overall status at discharge: patient is progressing back to baseline Exam Vital Signs (past 8 hours): - 09/23/19 08:49 09/23/19 11:14 Temperature 99.5 F 99.0 F Pulse Rate 107 H 97 H Respiratory Rate 22 17 Blood Pressure 115/56 L 139/63 Pulse Oximetry 99 97 Oxygen Delivery Method Room Air Oxygen Flow Rate 0 Narrative Exam Narrative: 84 year old female resting in bed in no acute distress. Dressing over hip is CDI. Intact motor in distal extremity. Calves soft. Palpable pedal pulse. Objective Labs Result Diagrams: 09/22/19 05:05 09/20/19 17:43 Discharge Plan Discharge Plan Patient Disposition: SNF Transfer to: [facility] Consult as needed: Dental, Hearing, Mental health, Podiatry and Vision Discharge orders & Medications Prescriptions: New acetaminophen 325 mg Tablet 975 mg PO TID Qty: 40 RF: 0 docusate sodium [DOK] 100 mg Capsule 100 mg PO BID Qty: 40 RF: 0 oxycodone 5 mg Tablet 5 mg PO Q3HR PRN (Reason: Pain, Moderate (4-6)) Qty: 60 RF: 0 enoxaparin [Lovenox] 40 mg/0.4 mL Syringe 40 mg subcut DAILY Qty: 28 RF: 0 calcium citrate [Calcitrate] 200 mg (950 mg) Tablet 600 mg PO BIDWM Qty: 40 RF: 0 ferrous gluconate 324 mg (38 mg iron) Tablet 324 mg PO DAILY Qty: 40 RF: 0 cholecalciferol (vitamin D3) [Vitamin D3] 125 mcg (5,000 unit) Tablet 5,000 unit PO DAILY Qty: 40 RF: 0 ondansetron 4 mg Tablet,Disintegrating 4 mg PO Q4HR PRN (Reason: Nausea And Vomiting) Qty: 40 RF: 0 ondansetron HCl [Zofran] 4 mg tablet 4 mg PO Q6H PRN (Reason: nausea and vomiting) Qty: 40 RF: 0 Continued multivitamin Tablet 1 tab PO DAILY Qty: 0 RF: 0 calcium carbonate [Calcium 500] 500 mg calcium (1,250 mg) Tablet 500 mg PO DAILY Qty: 0 RF: 0 acetaminophen 650 mg Tablet Extended Release 650 mg PO Q4HP Qty: 0 RF: 0 hyoscyamine sulfate 0.125 mg tablet, sublingual See Rx Instructions .ROUTE .COMPLEX Qty: 45 RF: 11 (DME) Disabled Parking Qty: 1 RF: 0 omeprazole 40 mg capsule,delayed release(DR/EC) 40 mg PO DAILY Qty: 30 RF: 5 dicyclomine 20 mg tablet 20 mg PO QID PRN (Reason: stomach cramps) Qty: 90 RF: 2 lorazepam [Ativan] 0.5 mg tablet 0.5 - 1 mg PO Q6H PRN (Reason: Anxiety) Qty: 20 RF: 0 Metamucil (sugar) Powder 1 tbsp PO DAILY Qty: 1254 RF: 0 chlordiazepoxide-clidinium 5-2.5 mg capsule 1 cap PO DAILY RF: 0 lisinopril 40 mg tablet 40 mg PO DAILY RF: 0 Follow up/Referrals: [facility] [Provider Group] Brain Gomez MD [Primary Care Provider] - Diet/Activity/Treatments Diet: Diet as Tolerated Liquid consistency: Normal/Thin Food texture: Regular Activity: Weight bear as tolerated. Cold/Heat Therapy: Ice packs as needed. Catheter: 2-way Castañeda Catheter comment: Please discontinue once patient able to mobilize to commode. Skin/Wound/Dressing Care Report to your healthcare provider any signs of infection, such as:: chills, fever, night sweats, unusual drainage and unusual redness Special Rehabilitation Services Reason for rehabilitation: Post-operative therapy Rehab type: Physical therapy and Occupational therapy Visit Report/Discharge Packet Stand Alone Forms: Surgery Discharge Discharge Data Primary Care Provider: Brain Gomez Discharges patient from system. Discharge Date/Time: 09/23/19 14:40 Quality VTE Deep Vein Thrombosis/Pulmonary Embolism Present on Admission: No
--- NOTE | 2019-09-23 14:11 | PT.IPTN ---
Current Diagnoses Acute posthemorrhagic anemia (09/20/19) Displaced intertrochanteric fracture of right femur, initial encounter for closed fracture (09/20/19) Surgery Performed Operation Date: 09/21/19 09:00 Actual Procedures p Intramedullary Nailing Femur(Right) - Danni Chow MD Physical Therapy Treatment Note M2 PT-IP Current Condition Start: 09/22/19 08:25 Freq: NEEDED Status: Discharge Protocol: Document 09/22/19 12:07 AW (Rec: 09/22/19 12:32 AW [id number]) Physical Therapy Current Condition Current Condition Evaluation Date 09/22/19 Treatment Diagnosis ORIF R intertroch hip fracture , difficulty in walking Onset Date 09/20/19 Precautions Other Precautions osteoporosis, high fall risk Weight Bearing Status Weight Bearing Status Weight Bear as Tolerated M3 PT-IP Subjective Start: 09/22/19 08:25 Freq: NEEDED Status: Discharge Protocol: Document 09/23/19 14:11 CLB (Rec: 09/23/19 14:43 CLB [id number]) Subjective Physical Therapy Visit Type Type Treatment Note Visit Start Time 14:11 Visit Stop Time 14:29 Total Visit Minutes 18 Number of GENERAL SERVICE TECHNICIAN Visits 1 Therapy Pain Assessment Pain When Pain Assessed During Mobility Pain Present Pain Present Pain Reported Location Right hip Intensity 6 Scale Used Numeric (1 - 10) Pain Behaviors Facial Grimacing,Guarding, Wincing Pain Management Techniques Distraction,Re-positioning, Timing of Activity with Medications M4 PT-IP Mobility and Gait Start: 09/22/19 08:25 Freq: NEEDED Status: Discharge Protocol: Document 09/23/19 14:11 CLB (Rec: 09/23/19 14:43 CLB [id number]) PT-Bed Mobility Assessment Rolling Type of Rolling Bilateral Level of Assist Moderate Assistance,1 Person Assistance PT-Transfer Assessment Transfers Transfer Destination Wheelchair Transfer Technique Mechanical Lift Transfer Ability Level of Assist Total Assistance,2 Person Assistance Comments Mobility Comments Pt performed log roll with Mod A x2 to place sling. Pt was transferred to . Gait Assessment Comments Gait Comments Pt unable at this time M5 PT-IP Objective Assessments Start: 09/22/19 08:25 Freq: NEEDED Status: Discharge Protocol: Document 09/22/19 12:07 AW (Rec: 09/22/19 12:32 AW [id number]) Orientation Orientation/Cognition Level of Alertness Alert Orientation Name,Day of Week,Place, Situation Language Function Ability No Deficits Noted Safety Awareness Understands Safety Issues Comments Pt alert and oriented but highly anxious which may be interfering with cognitive processes. Cognitive screening may be warranted. Gross Range of Motion Lower Extremity ROM Assessment Bilaterally Impaired Strength Lower Extremity Strength Assessment Bilaterally Impaired Knee 4-/5 Ankle 4-/5 Coordination Assessment Gross Coordination Gross Coordination WNL Sensation Assessment Sensation Gross Sensation WNL M6 PT-IP Treatment Start: 09/22/19 08:25 Freq: NEEDED Status: Discharge Protocol: Document 09/23/19 14:11 CLB (Rec: 09/23/19 14:43 CLB [id number]) Physical Therapy Treatment Exercises Exercises Ankle Pumps,Gluteal Sets,Quad Sets,Heel Slides Education Education Provided Weight Bearing Status,Safety M7 PT-IP Assessment and Plan Start: 09/22/19 08:25 Freq: NEEDED Status: Discharge Protocol: Document 09/23/19 14:11 CLB (Rec: 09/23/19 14:43 CLB [id number]) PT Summary Assessment and Plan Summary Assessment Summary Pt required Mod A x2 for log roll to place sling. Pt agreeable to perform bed ther ex while waiting for SNF rehab transport. Pt reluctant to move RLE and has decreased PROM due to guarding. Goals Bed Mobility Goal Contact Guard Assistance Transfer Goal Contact Guard Assistance,Front Wheeled Walker Gait Goal Contact Guard Assistance,Front Wheel Walker Gait Distance 50 Other Goals - up/down 4 stairs with B rails CGA Days to Meet Goals 10 Frequency of Treatment Frequency Of Treatment Twice a Day Treatment Plan Physical Therapy Treatment Plan Bed Mobility Training,Transfer Training,Gait Training, Therapeutic Exercise,Balance Retraining,Post Op Education, Discharge Planning,Hot or Cold Pack,Neuromuscular Re-ed, Coordination Retraining,Manual Therapy Recommendations To Nursing Amount of Assist Needed PT/OT Assist Only,Mechanical Lift Discharge Recommendations PT Discharge Recommendations SNF Rehab Transportation Needs at Discharge Wheelchair/Cabulance
--- NOTE | 2019-09-23 14:19 | CM.DPC ---
DCP Continued: Patient is being D/C to [facility] today at 2:15pm and patients nurse and ACCOUNT DEVELOPMENT MANAGER notified. PASRR completed Original put in D/C packet to go with patient, Copy faxed and placed into SLEEVE WHEEL MAKER Martis folder to be scanned into the EMR. patient updated by nurse. D/C summary, D/C orders and signed Medication list faxed to [facility]. Harper Nelson RN
--- NOTE | 2019-09-23 14:37 | PC.NURSE ---
Discharge order received for transfer to [facility]. Patient to go with [facility] in place. Emptied and melodie care provided prior to transfer. Dressing to right hip remains in place. Mechanical lift and PT used to transfer patient to wheelchair for transport. IV removed intact. Patient had cell phone, purse and $70 hillman with her upon discharge. Patient had hillman wrapped in a tissue on her table, placed in a container and put into her purse and told patient that is where it was for transfer. Patient to follow up with ortho as scheduled.
--- NOTE | 2019-09-23 14:40 | PC.NURSE ---
Report called to Colleen at [facility].
== END 2019-09-23 14:40 | DRG 481 ==
LOC: ED 18:08 → AC 19:35
PROVIDERS: Emergency Medicine; Orthopaedic Surgery Foot and Ankle Surgery; Admitting Provider Family Medicine; Emergency Provider Nurse Practitioner Family; PCP Internal Medicine; Referring Provider Nurse Practitioner Family; Visit Provider Internal Medicine
PROC: 0QS636Z Reposition Right Upper Femur with Intramedullary Internal Fixation Device, Percutaneous Approach (ICD-10-PCS; CPT 27245; principal; 2019-09-21 09:00)
DX: M80.051A Age-related osteoporosis with current pathological fracture, right femur, initial encounter for fracture (principal); D62 Acute posthemorrhagic anemia; W18.30XA Fall on same level, unspecified, initial encounter; Y92.000 Kitchen of unspecified non-institutional (private) residence as the place of occurrence of the external cause; I10 Essential (primary) hypertension; F41.9 Anxiety disorder, unspecified
CPT/HCPCS: 36415; 51701; 71045; 73501; 73502; 73560; 76000; 80048; 81001; 85025; 85027; 86850; 86900; 86901; 93005; 96374; 97110; 97161; 97530; 99222; 99232; 99284; J0690; J1100; J1170; J1650; J2250; J2270; J2405; J2704; J3010

== ENCOUNTER → 2019-10-10 10:51 | Outpatient (CLI) | payer SELFPAY ==
[2019-09-20 20:05] VITALS: BMI 21.2
--- NOTE | 2019-10-10 | DI.RAD.S_ITS ---
PROCEDURE: XR HIP W PEL IF DONE RT 2V INDICATIONS: Displaced intertrochanteric fracture of right femur TECHNIQUE: AP pelvis with lateral view(s) of the right hip(s). COMPARISON: [facility], CR, XR HIP W PEL IF DONE RT 2V, 09/21/2019, 11:46. [facility], CR, XR HIP W PEL IF DONE RT 2V, 09/20/2019, 17:41. FINDINGS: Bones: No previously unidentified fractures or dislocations. Pelvic ring appears intact. No suspicious bony lesions. Soft tissues: The visualized bowel gas pattern is normal. No suspicious soft tissue calcifications. IMPRESSION: Prior fracture fixation at the right hip by short intramedullary andrew and diagonal cannulated fixation screws show no sign of disruption or malalignment. Early healing appears present in this patient who underwent surgical repair 09/21/19. No new injury is seen. Dictated by: Del Coyne M.D. on 10/10/2019 at 12:24 Approved by: Del Coyne M.D. on 10/10/2019 at 12:26
== END ==
PROVIDERS: PCP Internal Medicine; Referring Provider Internal Medicine; Visit Provider Internal Medicine
DX: S72.141D Displaced intertrochanteric fracture of right femur, subsequent encounter for closed fracture with routine healing (principal)
CPT/HCPCS: 73502

== ENCOUNTER → 2019-10-21 09:57 | Outpatient (CLI) | payer SELFPAY ==
[2019-09-20 20:05] VITALS: BMI 21.2
--- NOTE | 2019-10-21 | DI.US.S_ITS ---
PROCEDURE: US PERIPH VENOUS LOW EXTREM RT INDICATIONS: Thigh pain. History of hematoma. EVAL FOR DVT. HISTORY OF MELANOMA TECHNIQUE: Real-time imaging, as well as color and pulse Doppler interrogation, were performed of the lower extremity deep veins from the inguinal ligament to the popliteal fossa. COMPARISON: None. FINDINGS: The common femoral, femoral and popliteal veins are normally compressible, and free of intraluminal thrombus. Color and pulse Doppler demonstrate normal phasic intraluminal flow. There is normal augmentation response to distal compression maneuver. IMPRESSION: Negative for deep venous thrombosis. Dictated by: Fidel Whitmore M.D. on 10/21/2019 at 10:47 Approved by: Fidel Whitmore M.D. on 10/21/2019 at 10:48
== END ==
PROVIDERS: PCP Internal Medicine; Referring Provider Nurse Practitioner; Visit Provider Nurse Practitioner
DX: M79.651 Pain in right thigh (principal); Z85.820 Personal history of malignant melanoma of skin
CPT/HCPCS: 93971

== ENCOUNTER 2019-11-13 22:58 | Emergency (ER) | payer MEDICARE, OTHER, SELFPAY ==
[2019-09-20 20:05] VITALS: BMI 21.2
[2019-11-13 22:50] VITALS: BP 196/111; PULSE 91; RESP 16; TEMP 37.1; O2SAT 99
--- NOTE | 2019-11-13 23:13 | ED_ITS ---
HPI - General Adult General Stated complaint: constipation x3 days now with sharp abdominal pain Time Seen by Provider: 11/13/19 23:01 Source: patient Mode of arrival: EMS Limitations: no limitations History of Present Illness HPI narrative: 84-year-old female brought in by EMS for evaluation of rectal bleeding. Patient states that it had been about 3 days since she has had a bowel movement. She has had issues with chronic abdominal pain and constipation in the past. She took a laxative. She then had a loose bowel movement with some bright red blood in it. She had some rectal pain afterwards. Described as a sharp pain. No abdominal pain. She states that she then took another laxative. She did admit that she is unsure why she took a 2nd laxative but then again had another loose bowel movement with some more blood in it. She had an increasing rectal pain at the time. The rectal pain is what brought her into the emergency department. Has not tried anything for symptoms prior to arrival. Related Data Home Medications Medication Instructions Recorded Confirmed calcium carbonate [Calcium 500] 500 mg PO DAILY #0 02/24/11 11/13/19 multivitamin 1 tab PO DAILY #0 02/24/11 11/13/19 trolamine salicylate 10 % lotion 1 applictn TOP Q4H PRN ml 10/24/19 11/13/19 tramadol 50 mg tablet 50 mg PO Q6H PRN 11/13/19 11/13/19 Previous Rx's Medication Instructions Recorded dicyclomine 20 mg tablet 20 mg PO QID PRN #90 tab 08/14/18 Disabled Parking #1 each 11/02/18 omeprazole 40 mg capsule,delayed 40 mg PO DAILY #30 cap 11/02/18 release lorazepam 0.5 mg tablet 0.5 - 1 mg PO Q6H PRN #20 tab 01/14/19 psyllium seed (sugar) 1 tbsp PO DAILY #1254 gram 07/01/19 hyoscyamine sulfate 0.125 mg See Rx Instructions .ROUTE 07/04/19 sublingual tablet .COMPLEX #45 each acetaminophen 975 mg PO TID #40 tab 09/23/19 calcium citrate [Calcitrate] 600 mg PO BIDWM #40 tab 09/23/19 cholecalciferol (vitamin D3) 5,000 unit PO DAILY #40 tab 03/02/20 [Vitamin D3] docusate sodium [DOK] 100 mg PO BID #40 cap 09/23/19 ferrous gluconate 324 mg PO DAILY #40 tab 09/23/19 ondansetron 4 mg PO Q4HR PRN #40 tab 09/23/19 chlordiazepoxide-clidinium 5 1 cap PO DAILY #90 cap 11/13/19 mg-2.5 mg capsule lisinopril 40 mg tablet 40 mg PO DAILY #90 tab 11/13/19 Allergies Allergy/AdvReac Type Severity Reaction Status Date / Time levofloxacin [From LEVAQUIN] AdvReac Unknown dizziness, Verified 11/13/19 09:41 not sure if related or not...08/30/16 Review of Systems Constitutional Constitutional: Denies fever(s) Gastrointestinal Gastrointestinal: Denies abdominal pain, Reports diarrhea and Denies nausea Comments: Bright red blood per rectum, rectal pain Genitourinary Genitourinary: Denies dysuria Integumentary/Breasts Skin/Breast: Denies rash Neurologic Neurologic: Denies behavioral changes and Denies confusion Psychiatric Psychiatric: Denies behavioral changes and Denies confusion Patient History Medical History Abdominal pain (Chronic) Anxiety (Chronic 09/16/13) Diverticulosis of large intestine (Chronic) Essential hypertension (Chronic 02/24/11) History of adenomatous polyp of colon (Chronic) Hypertension (Acute) Irritable bowel syndrome with diarrhea (Chronic 09/13/16) Irritable bowel syndrome without diarrhea (Chronic 05/28/15) Lung nodule seen on imaging study (Chronic 10/03/12) Mixed hyperlipidemia (Chronic 02/24/11) Osteoporosis (Chronic 02/24/11) Social History marital status: number of children: 1 household members: none lives independently: Yes caregiver/support person: Yes (Step daughter) housing: apartment pets and animals: No education level: high school occupational status: other Previous occupational history: 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 hortencia/rastafarian: [employer] leisure activities: music, reading and other Smoking Status: Never smoker Tobacco: How many years used: 0 alcohol intake: current substance use type: does not use Smoking Status: Never smoker alcohol intake frequency: 0-2 drinks per day Substance Use Type: does not use Exam Const General: cooperative and comfortable Resp Effort & Inspection: normal respiratory effort Cardio Rate: regular rate GI Inspection: non-distended Palpation: soft, No firm and No tender Rectal Exam: visual inspection normal, normal sphincter tone, No abnormal stool, No heme positive stool, heme negative stool, No hemorrhoids, No mass and tenderness Skin Lesions: no lesions Rashes: no rashes Neuro General: alert and awake Cognition: normal cognition Speech: speech normal Extrem General: normal to inspection and capillary refill normal Medical Decision Making MDM Narrative Medical decision making narrative: Patient has had issues with constipation and chronic abdominal pain in the past. She is not complaining of any abdominal pain now. She did have quite a bit of stool in her underwear and pants. There were no hemorrhoids felt on the exam. She had heme-negative stool here. I feel we could hold on further workup for now. She was given return precautions and follow-up instructions. She expressed understanding and agreement. Discharge Plan Departure Patient Disposition: Home Clinical Impression: Pain in rectum Constipation Qualifiers: Constipation type: unspecified constipation type Qualified Code(s): K59.00 - Constipation, unspecified Instructions: DI for Constipation Activity Restrictions/Additional Instructions: Recommend that you continue all of your medications as directed. Be sure to increase your fluid intake. Contact your primary provider for follow-up. Return to the emergency department for any new or worsening symptoms Prescriptions: No Action multivitamin Tablet 1 tab PO DAILY Qty: 0 RF: 0 calcium carbonate [Calcium 500] 500 mg calcium (1,250 mg) Tablet 500 mg PO DAILY Qty: 0 RF: 0 hyoscyamine sulfate 0.125 mg tablet, sublingual See Rx Instructions .ROUTE .COMPLEX Qty: 45 RF: 11 trolamine salicylate 10 % lotion 1 applictn TOP Q4H PRN (Reason: hip pain) RF: 0 lisinopril 40 mg tablet 40 mg PO DAILY Qty: 90 RF: 1 (DME) Disabled Parking Qty: 1 RF: 0 omeprazole 40 mg capsule,delayed release(DR/EC) 40 mg PO DAILY Qty: 30 RF: 5 dicyclomine 20 mg tablet 20 mg PO QID PRN (Reason: stomach cramps) Qty: 90 RF: 2 lorazepam [Ativan] 0.5 mg tablet 0.5 - 1 mg PO Q6H PRN (Reason: Anxiety) Qty: 20 RF: 0 Metamucil (sugar) Powder 1 tbsp PO DAILY Qty: 1254 RF: 0 tramadol 50 mg tablet 50 mg PO Q6H PRNRF: 0 chlordiazepoxide-clidinium 5-2.5 mg capsule 1 cap PO DAILY Qty: 90 RF: 3 acetaminophen 325 mg Tablet 975 mg PO TID Qty: 40 RF: 0 docusate sodium [DOK] 100 mg Capsule 100 mg PO BID Qty: 40 RF: 0 calcium citrate [Calcitrate] 200 mg (950 mg) Tablet 600 mg PO BIDWM Qty: 40 RF: 0 ferrous gluconate 324 mg (38 mg iron) Tablet 324 mg PO DAILY Qty: 40 RF: 0 cholecalciferol (vitamin D3) [Vitamin D3] 125 mcg (5,000 unit) Tablet 5,000 unit PO DAILY Qty: 40 RF: 0 ondansetron 4 mg Tablet,Disintegrating 4 mg PO Q4HR PRN (Reason: Nausea And Vomiting) Qty: 40 RF: 0 Referrals: Brain Gomez MD [Primary Care Provider] -
[2019-11-13 23:55] VITALS: BP 172/94; PULSE 87; RESP 15; O2SAT 99
== END 2019-11-13 23:55 | disposition home or self-care (01) ==
PROVIDERS: Emergency Provider Emergency Medicine; PCP Internal Medicine
DX: K62.89 Other specified diseases of anus and rectum (principal); K59.00 Constipation, unspecified
CPT/HCPCS: 99281

== ENCOUNTER 2019-11-22 15:33 | Emergency (ER) | payer MEDICARE, OTHER, SELFPAY ==
[2019-11-22 14:14] VITALS: BMI 21.2
[2019-11-22 15:36] VITALS: BP 195/91; PULSE 91; RESP 17; TEMP 36.7; O2SAT 99; BMI 21.2
[2019-11-22 16:13] VITALS: BP 190/85; PULSE 85; RESP 21; O2SAT 98
[2019-11-22 16:33] VITALS: BP 161/78; PULSE 82; RESP 23; O2SAT 99
[2019-11-22 16:47] LABS: Add Manual Diff / Slide Review NO; Basophils Absolute Auto 100 /uL (0-100); Basophils Percent Auto 2.2 % (0-2); Eosinophils Absolute Auto 100 /uL (0-450); Eosinophils Percent Auto 1.8 % (2-4); Hematocrit 37.6 % (36-46); Hemoglobin 12.5 g/dL (12.0-16.0); Lymphocytes Absolute Auto 700 /uL (1100-4500); Lymphocytes Percent Auto 15.9 % (25-40); Mean Corpuscular HGB Conc 33.1 % (30-36); Mean Corpuscular Hemoglobin 27.4 PG (26-34); Mean Corpuscular Volume 82.7 fL (80-100); Monocytes Absolute Auto 800 /uL (0-900); Monocytes Percent Auto 17.7 % (3-14); Neutrophils Absolute Auto 2900 /uL (1500-7000); Neutrophils Percent Auto 62.4 % (50-75); Platelet Count 335 X10^3/uL (150-400); Red Blood Cell Count 4.55 X10^6/uL (4.0-5.2); Red Cell Distribution Width 13.8 % (11.6-14.8); White Blood Cell Count 4.6 X10^3/uL (4.5-11.0)
[2019-11-22 16:53] LABS: Prothrombin Time 11.7 SECONDS (10.1-12.7)
[2019-11-22 16:55] LABS: PTT Partial Thromboplastin Tim 30 SECONDS (26.4-36.2)
[2019-11-22 16:57] LABS: Alanine Aminotransferase 8 IU/L (<35); Albumin 4.1 g/dL (3.5-5.0); Albumin Globulin Ratio 1.1 (1.0-2.8); Alkaline Phosphatase 108 U/L (38-126); Aspartate Aminotransferase 19 IU/L (14-36); BUN Creatinine Ratio 14.3 (6-22); Bilirubin Total 0.3 mg/dL (0.2-1.3); Blood Urea Nitrogen 7 mg/dL (7-17); Calcium 9.3 mg/dL (8.4-10.2); Carbon Dioxide 25 mmol/L (22-32); Chloride 98 mmol/L (98-107); Estimated Glomerular Filt Rate > 60.0 mL/min (>60); Globulin 3.6 g/dL (1.7-4.1); Glucose 100 mg/dL (80-110); HEMOLYSIS < 15 (0-50); Potassium 4.4 mmol/L (3.4-5.1); Sodium 130 mmol/L (137-145); Total Protein 7.7 g/dL (6.3-8.2)
--- NOTE | 2019-11-22 16:58 | ED_ITS ---
HPI - GI Bleed General Chief complaint: GI Bleed Stated complaint: blood in stool Time Seen by Provider: 11/22/19 16:22 Source: patient Mode of arrival: Wheelchair Limitations: no limitations History of Present Illness HPI Narrative: This is an 84-year-old female comes emergency department with complaint of 2 episodes of bright red blood in her stool today. Patient states the 1st 1 she had started about slightly harder stool it was uncomfortable in the rectal area and then saw some bright red blood. On the 2nd bowel movement she had diarrhea like stool and noticed bright red blood. She states it was not clots did not seem like excessively large amount but she could not see through the water in the toilet. She denies any lightheadedness, dizziness or presyncope. She states she is not on any thinners such as aspirin, Plavix or other anticoagulants. She states she did have some crampy abdominal pain in her lower abdomen last night but none currently. She states no nausea, no vomiting, no other fevers, no cold cough or congestion. She has had a history of diverticulitis in the past. She states she has not had GI bleeding past. Her primary care physician did contact us and referred her to the ED. She had stable vital signs in the office. Related Data Home Medications Medication Instructions Recorded Confirmed calcium carbonate [Calcium 500] 500 mg PO DAILY #0 02/24/11 11/22/19 multivitamin 1 tab PO DAILY #0 02/24/11 11/22/19 trolamine salicylate 10 % lotion 1 applictn TOP Q4H PRN ml 10/24/19 11/22/19 tramadol 50 mg tablet 50 mg PO Q6H PRN 11/13/19 11/22/19 Previous Rx's Medication Instructions Recorded dicyclomine 20 mg tablet 20 mg PO QID PRN #90 tab 08/14/18 Disabled Parking #1 each 11/02/18 omeprazole 40 mg capsule,delayed 40 mg PO DAILY #30 cap 11/02/18 release lorazepam 0.5 mg tablet 0.5 - 1 mg PO Q6H PRN #20 tab 01/14/19 psyllium seed (sugar) 1 tbsp PO DAILY #1254 gram 07/01/19 hyoscyamine sulfate 0.125 mg See Rx Instructions .ROUTE 07/04/19 sublingual tablet .COMPLEX #45 each acetaminophen 975 mg PO TID #40 tab 09/23/19 calcium citrate [Calcitrate] 600 mg PO BIDWM #40 tab 09/23/19 cholecalciferol (vitamin D3) 5,000 unit PO DAILY #40 tab 09/23/19 [Vitamin D3] docusate sodium [DOK] 100 mg PO BID #40 cap 09/23/19 ferrous gluconate 324 mg PO DAILY #40 tab 09/23/19 ondansetron 4 mg PO Q4HR PRN #40 tab 09/23/19 chlordiazepoxide-clidinium 5 1 cap PO DAILY #90 cap 11/13/19 mg-2.5 mg capsule lisinopril 40 mg tablet 40 mg PO DAILY #90 tab 11/13/19 famotidine 40 mg tablet 40 mg PO DAILY PRN #30 tab 11/22/19 Allergies Allergy/AdvReac Type Severity Reaction Status Date / Time levofloxacin [From LEVAQUIN] AdvReac Unknown dizziness, Verified 11/22/19 15:56 not sure if related or not...08/30/16 Review of Systems Review of Systems ROS Unobtainable: All systems reviewed & are unremarkable except as noted in HPI and below Patient History Medical History Abdominal pain (Chronic) Anxiety (Chronic 09/16/13) Diverticulosis of large intestine (Chronic) Essential hypertension (Chronic 02/24/11) History of adenomatous polyp of colon (Chronic) Hypertension (Acute) Irritable bowel syndrome with diarrhea (Chronic 09/13/16) Irritable bowel syndrome without diarrhea (Chronic 05/28/15) Lung nodule seen on imaging study (Chronic 10/03/12) Mixed hyperlipidemia (Chronic 02/24/11) Osteoporosis (Chronic 02/24/11) Surgical History H/O colonoscopy (Resolved) History of appendectomy (Resolved) History of foot surgery (Resolved) Hx of appendectomy (Chronic) Social History marital status: number of children: 1 household members: none lives independently: Yes caregiver/support person: Yes (Step daughter) housing: apartment pets and animals: No education level: high school occupational status: other 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 hortencia/catholic: [employer]ational leisure activities: music, reading and other Smoking Status: Never smoker Tobacco: How many years used: 0 alcohol intake: current substance use type: does not use Smoking Status: Never smoker alcohol intake frequency: holidays/special occasions only Substance Use Type: does not use Exam Narrative Exam Narrative: GENERAL: Alert and oriented x three, thin, well-appearing elderly female in mild distress. No pallor. HEENT: Head normocephalic, atraumatic, EOMI, pupils reactive, no conjunctival pallor, face symmetric, moist mucous membranes NECK: Supple, full range of motion CARDIOVASCULAR: Regular rate and rhythm without murmurs, rubs or gallops. RESPIRATORY: Breath sounds equal bilaterally, no wheezes rales or rhonchi. ABDOMEN: Soft, nontender. Normoactive bowel sounds all 4 quadrants. No guarding or rebound, rigidity, no mass. On TEJAL negative stool occult, patient has very small internal hemorrhoid that is slightly uncomfortable, no external hemorrhoid noted. Stool occult is negative. There is a small amount of brownish stool present. : No CVA tenderness EXTREMITIES: Normal range of motion, no clubbing or edema. Neurovascularly intact NEUROLOGICAL: Cranial nerves II through XII grossly intact. Moving all extremities SKIN: Warm, dry, no petechiae, no rashes or lesions. Initial Vital Signs Initial Vital Signs: Vital Signs Temperature 98.0 F 11/22/19 15:36 Pulse Rate 91 H 11/22/19 15:36 Respiratory Rate 17 11/22/19 15:36 Blood Pressure 195/91 H 11/22/19 15:36 Pulse Oximetry 99 11/22/19 15:36 Course Orders Ordered: ED Orders 11/22/19 15:55 EKG-12 Lead Stat 11/22/19 16:36 Complete Blood Count AUTO DIFF Stat Comprehensive Metabolic Panel Stat Partial Thromboplastin Time Stat Prothrombin Time INR Stat 11/22/19 17:19 CT abdomen pelvis w con Stat 11/22/19 18:30 Urine Culture Stat Urine Microscopic Stat Sodium Chloride (Normal Saline 0.9%) 1,000 mls @ 150 mls/hr IV CONT YUSUF Last Admin: 11/22/19 17:41 Dose: 150 mls/hr Documented by: ZEINAB Vital Signs Vital signs: Vital Signs - 8 hr 11/22/19 15:36 11/22/19 16:13 11/22/19 16:33 Temperature 98.0 F Pulse Rate 91 H 85 82 Respiratory Rate 17 21 23 Blood Pressure 195/91 H Blood Pressure [Right Arm] 190/85 H 161/78 H Pulse Oximetry 99 98 99 11/22/19 17:38 11/22/19 18:24 Temperature Pulse Rate 84 81 Respiratory Rate 24 17 Blood Pressure Blood Pressure [Right Arm] 160/84 H 176/82 H Pulse Oximetry 100 100 MDM - GI Bleed Lab Data Attestation: I reviewed the patient's lab results. Result diagrams: 11/22/19 16:36 11/22/19 16:36 Labs: Lab Results 11/22/19 11/22/19 11/22/19 Range/Units 16:36 16:36 16:36 WBC 4.6 (4.5-11.0) X10^3/uL RBC 4.55 (4.0-5.2) X10^6/uL Hgb 12.5 (12.0-16.0) g/dL Hct 37.6 (36-46) % MCV 82.7 (80-100) fL MCH 27.4 (26-34) PG MCHC 33.1 (30-36) % RDW 13.8 (11.6-14.8) % Plt Count 335 (150-400) X10^3/uL Neut % (Auto) 62.4 (50-75) % Lymph % (Auto) 15.9 L (25-40) % [place] % (Auto) 17.7 H (3-14) % Eos % (Auto) 1.8 L (2-4) % Baso % (Auto) 2.2 H (0-2) % Neut # (Auto) 2900 (4776-3543) /uL Lymph # (Auto) 700 L (9379-3396) /uL [place] # (Auto) 800 (0-900) /uL Eos # (Auto) 100 (0-450) /uL Baso # (Auto) 100 (0-100) /uL PT 11.7 (10.1-12.7) SECONDS INR 1.0 (0.9-1.3) APTT 30 (26.4-36.2) SECONDS Sodium 130 L (137-145) mmol/L Potassium 4.4 (3.4-5.1) mmol/L Chloride 98 (98-107) mmol/L Carbon Dioxide 25 (22-32) mmol/L BUN 7 (7-17) mg/dL Creatinine 0.49 L (0.52-1.04) mg/dL Estimated GFR > 60.0 (>60) mL/min BUN/Creatinine Ratio 14.3 (6-22) Glucose 100 (80-110) mg/dL Calcium 9.3 (8.4-10.2) mg/dL Total Bilirubin 0.3 (0.2-1.3) mg/dL AST 19 (14-36) IU/L ALT 8 (<35) IU/L Alkaline Phosphatase 108 (38-126) U/L Total Protein 7.7 (6.3-8.2) g/dL Albumin 4.1 (3.5-5.0) g/dL Globulin 3.6 (1.7-4.1) g/dL Albumin/Globulin Ratio 1.1 (1.0-2.8) Urine RBC (0-5/HPF) Urine WBC (0-5/HPF) Ur Squamous Epith Cells (0-5/HPF) Urine Bacteria (None) Ur Culture Indicated? 11/22/19 Range/Units 18:30 WBC (4.5-11.0) X10^3/uL RBC (4.0-5.2) X10^6/uL Hgb (12.0-16.0) g/dL Hct (36-46) % MCV (80-100) fL MCH (26-34) PG MCHC (30-36) % RDW (11.6-14.8) % Plt Count (150-400) X10^3/uL Neut % (Auto) (50-75) % Lymph % (Auto) (25-40) % [place] % (Auto) (3-14) % Eos % (Auto) (2-4) % Baso % (Auto) (0-2) % Neut # (Auto) (1234-0737) /uL Lymph # (Auto) (5182-6789) /uL [place] # (Auto) (0-900) /uL Eos # (Auto) (0-450) /uL Baso # (Auto) (0-100) /uL PT (10.1-12.7) SECONDS INR (0.9-1.3) APTT (26.4-36.2) SECONDS Sodium (137-145) mmol/L Potassium (3.4-5.1) mmol/L Chloride (98-107) mmol/L Carbon Dioxide (22-32) mmol/L BUN (7-17) mg/dL Creatinine (0.52-1.04) mg/dL Estimated GFR (>60) mL/min BUN/Creatinine Ratio (6-22) Glucose (80-110) mg/dL Calcium (8.4-10.2) mg/dL Total Bilirubin (0.2-1.3) mg/dL AST (14-36) IU/L ALT (<35) IU/L Alkaline Phosphatase (38-126) U/L Total Protein (6.3-8.2) g/dL Albumin (3.5-5.0) g/dL Globulin (1.7-4.1) g/dL Albumin/Globulin Ratio (1.0-2.8) Urine RBC 0-1/hpf (0-5/HPF) Urine WBC 10-30/hpf H (0-5/HPF) Ur Squamous Epith Cells 0-1 /hpf (0-5/HPF) Urine Bacteria Many (>30) H (None) Ur Culture Indicated? Specimen cultured Urine Dip Bedside Urine Glucose Negative Bedside Urine Bilirubin - Negative Bedside Urine Ketone - Negative Urine Specific [place] 1.010 Bedside Urine Occult Blood +/- Bedside Urine pH 6.5 Bedside Urine Protein - Negative Bedside Urine Urobilinogen - Negative Bedside Urine Nitrite - Negative Bedside Urine Leukocytes + [address] scan - abdomen/pelvis: Radiologist's Impression: [address] [address] [address] Scan Report Signed Patient: Mahsa Storey MMR#: [id number] : [id number]:[id number] Age/Sex: 84 / FDate of Service: 11/22/19 Loc: ED Accession Number: [id number] Procedure: CT abdomen pelvis w con Ordering Provider: Nasreen Metz D.O. PROCEDURE: CT ABDOMEN PELVIS W CON INDICATIONS: crampy lower abd pain, brb in stool, hx diverticulitis TECHNIQUE: After the administration of intravenous contrast, 5 mm thick sections acquired from the diaphragm to the symphysis. 5 mm coronal and sagittal reformats were acquired. For radiation dose reduction, the following was used: automated exposure control, adjustment of mA and/or kV according to patient size. COMPARISON: [facility], CT, CT ABDOMEN PELVIS W CON, 11/01/2018, 9:03. FINDINGS: Image quality: Excellent. ABDOMEN: Lung bases: Lung bases are clear. Heart size is normal. Solid organs: Liver is normal in size and enhancement. Gallbladder contain a small calcified stone in its dependent portion. Questionable gallbladder wall thickening is seen, and no pericholecystic fluid.. Biliary system is non dilated. Pancreas enhances normally. Spleen is normal in size and enhancement. No adrenal nodules. Kidneys demonstrate normal size and enhancement, without hydronephrosis. Peritoneum and bowel: Examination of unenhanced bowel loops shows small hiatal hernia. No gross abnormal bowel wall thickening. Extensive colonic diverticulosis is seen, and no CT evidence of acute diverticulitis is noted. No free fluid or free air is seen. Nodes and vessels: No retroperitoneal or mesenteric adenopathy by size c riteria. Aorta and inferior vena cava are normal in size. Moderate atherosclerotic calcifications are seen. Miscellaneous: No ventral hernias. PELVIS: Genitourinary: Bladder wall thickness is normal. Bulky appearing uterus is noted for patient's age with calcified fibroid in the fundus. No gross adnexal mass is seen. Miscellaneous: No inguinal hernias or adenopathy. Bones: Patient is status post internal fixation of previously noted comminuted intertrochanteric fracture. Osteopenia is seen. Chronic appearing anterior wedge compression deformity are noted at T11, T12, L4 levels with minimal anterolisthesis of L5 on S1. IMPRESSION: 1. Extensive sigmoid diverticulosis with no CT evidence of acute diverticulitis. No definite abnormal bowel wall thickening. No obstruction. No free fluid or free air. 2. Calcified uterine fibroid unchanged from prior study. 3. Tiny gallstone. No definite CT evidence of acute cholecystitis. No biliary ductal dilatation. 4. Postsurgical changes in right hip. Chronic appearing anterior wedge compression deformities of T11, T12, and L4 vertebral bodies new since 2019 study. Dictated by: Lavell Dover M.D. on 11/22/2019 at 17:37 Approved by: Lavell Dover M.D. on 11/22/2019 at 17:43 ECG Data Attestation: I personally reviewed and interpreted this ECG as follows: Interpretation: Sinus rhythm with sinus arrhythmia rate 82 [place] 159 QRS of 75 and QTC of 378. No ST elevation/depression changes appreciated. Patient's T-waves are more peaked in lateral leads and then prior EKG but otherwise similar to 04/12/2020. Patient's CBC shows hemoglobin of 12.5, this is significantly improved from prior at 09/22/1908/12/2019 which was 8.2 immediately after her right femur fracture repair. Typically she has been in the 12-13 range for the last year. Patient has normal platelets, white count is normal. Coags are negative. Chemistry shows hyponatremia with a sodium of 130 which is close to her priors. Electrolytes and renal function are otherwise normal with normal LFTs. Patient's heart rates been in the 90s to 80s and she has been hypertensive in the department. Patient's CT shows extensive diverticulosis but without evidence of diverticulitis, calcified uterine fibroid, small gallstone no evidence of acute cholecystitis and postsurgical changes in the right hip with chronic appearing anterior wedge compression deformities of T11, T12 and L4 that are new since 2019. Stool occult is negative, patient's exam she has a very small hemorrhoid she has not had any further episodes in the department. Patient I discussed she has had a colonoscopy in the past and we discussed that she may benefit from repeat colonoscopy and call her primary care to help facilitate this. Discharge Plan Departure Patient Disposition: Home Clinical Impression: Rectal bleeding Instructions: DI for Rectal Bleeding Activity Restrictions/Additional Instructions: Follow-up with Dr. Gomez, call Monday morning to discussed setting up possibly a colonoscopy to evaluate your rectal bleeding. Continue home medications as prescribed. Continue your MiraLax/fiber supplement once daily to maintain soft stools. Your CT imaging today does show some wedge or deformities or compression fractures in the lower thoracic upper lumbar region that are new since imaging in 2019. Return to the ER for fevers, worsening rectal bleeding, large amounts of rectal bleeding or clots, lightheadedness or passing out, new chest pain or shortness of breath, new or worsening abdominal pain, or other new or concerning symptoms. Prescriptions: No Action multivitamin Tablet 1 tab PO DAILY Qty: 0 RF: 0 calcium carbonate [Calcium 500] 500 mg calcium (1,250 mg) Tablet 500 mg PO DAILY Qty: 0 RF: 0 hyoscyamine sulfate 0.125 mg tablet, sublingual See Rx Instructions .ROUTE .COMPLEX Qty: 45 RF: 11 trolamine salicylate 10 % lotion 1 applictn TOP Q4H PRN (Reason: hip pain) RF: 0 lisinopril 40 mg tablet 40 mg PO DAILY Qty: 90 RF: 1 famotidine 40 mg tablet 40 mg PO DAILY PRN (Reason: heartburn) Qty: 30 RF: 5 (DME) Disabled Parking Qty: 1 RF: 0 omeprazole 40 mg capsule,delayed release(DR/EC) 40 mg PO DAILY Qty: 30 RF: 5 dicyclomine 20 mg tablet 20 mg PO QID PRN (Reason: stomach cramps) Qty: 90 RF: 2 lorazepam [Ativan] 0.5 mg tablet 0.5 - 1 mg PO Q6H PRN (Reason: Anxiety) Qty: 20 RF: 0 Metamucil (sugar) Powder 1 tbsp PO DAILY Qty: 1254 RF: 0 tramadol 50 mg tablet 50 mg PO Q6H PRNRF: 0 chlordiazepoxide-clidinium 5-2.5 mg capsule 1 cap PO DAILY Qty: 90 RF: 3 acetaminophen 325 mg Tablet 975 mg PO TID Qty: 40 RF: 0 docusate sodium [DOK] 100 mg Capsule 100 mg PO BID Qty: 40 RF: 0 calcium citrate [Calcitrate] 200 mg (950 mg) Tablet 600 mg PO BIDWM Qty: 40 RF: 0 ferrous gluconate 324 mg (38 mg iron) Tablet 324 mg PO DAILY Qty: 40 RF: 0 cholecalciferol (vitamin D3) [Vitamin D3] 125 mcg (5,000 unit) Tablet 5,000 unit PO DAILY Qty: 40 RF: 0 ondansetron 4 mg Tablet,Disintegrating 4 mg PO Q4HR PRN (Reason: Nausea And Vomiting) Qty: 40 RF: 0 Referrals: Brain Gomez MD [Primary Care Provider] -
--- NOTE | 2019-11-22 17:19 | DI.CT.S_ITS ---
PROCEDURE: CT ABDOMEN PELVIS W CON INDICATIONS: crampy lower abd pain, brb in stool, hx diverticulitis TECHNIQUE: After the administration of intravenous contrast, 5 mm thick sections acquired from the diaphragm to the symphysis. 5 mm coronal and sagittal reformats were acquired. For radiation dose reduction, the following was used: automated exposure control, adjustment of mA and/or kV according to patient size. COMPARISON: [facility], CT, CT ABDOMEN PELVIS W CON, 11/01/2018, 9:03. FINDINGS: Image quality: Excellent. ABDOMEN: Lung bases: Lung bases are clear. Heart size is normal. Solid organs: Liver is normal in size and enhancement. Gallbladder contain a small calcified stone in its dependent portion. Questionable gallbladder wall thickening is seen, and no pericholecystic fluid.. Biliary system is non dilated. Pancreas enhances normally. Spleen is normal in size and enhancement. No adrenal nodules. Kidneys demonstrate normal size and enhancement, without hydronephrosis. Peritoneum and bowel: Examination of unenhanced bowel loops shows small hiatal hernia. No gross abnormal bowel wall thickening. Extensive colonic diverticulosis is seen, and no CT evidence of acute diverticulitis is noted. No free fluid or free air is seen. Nodes and vessels: No retroperitoneal or mesenteric adenopathy by size criteria. Aorta and inferior vena cava are normal in size. Moderate atherosclerotic calcifications are seen. Miscellaneous: No ventral hernias. PELVIS: Genitourinary: Bladder wall thickness is normal. Bulky appearing uterus is noted for patient's age with calcified fibroid in the fundus. No gross adnexal mass is seen. Miscellaneous: No inguinal hernias or adenopathy. Bones: Patient is status post internal fixation of previously noted comminuted intertrochanteric fracture. Osteopenia is seen. Chronic appearing anterior wedge compression deformity are noted at T11, T12, L4 levels with minimal anterolisthesis of L5 on S1. IMPRESSION: 1. Extensive sigmoid diverticulosis with no CT evidence of acute diverticulitis. No definite abnormal bowel wall thickening. No obstruction. No free fluid or free air. 2. Calcified uterine fibroid unchanged from prior study. 3. Tiny gallstone. No definite CT evidence of acute cholecystitis. No biliary ductal dilatation. 4. Postsurgical changes in right hip. Chronic appearing anterior wedge compression deformities of T11, T12, and L4 vertebral bodies new since 2019 study. Dictated by: Lavell Dover M.D. on 11/22/2019 at 17:37 Approved by: Lavell Dover M.D. on 11/22/2019 at 17:43
[2019-11-22 17:38] VITALS: BP 160/84; PULSE 84; RESP 24; O2SAT 100
[2019-11-22] MEDS: SODIUM CHLORIDE 0.9% 1,000 ML 150 ML IV (17:41)
[2019-11-22 18:24] VITALS: BP 176/82; PULSE 81; RESP 17; O2SAT 100
[2019-11-22 18:50] LABS: Bacteria Urine Many (>30); Culture Indicated Urine Specimen Cultured; RBC Urine 0-1/HPF (0-5/HPF); Squamous Epithelial Cell Urine 0-1 /HPF (0-5/HPF); WBC Urine 10-30/HPF (0-5/HPF)
[2019-11-22 19:05] VITALS: BP 174/81; PULSE 94; RESP 23; O2SAT 99
== END 2019-11-22 19:35 | disposition home or self-care (01) ==
PROVIDERS: Emergency Provider Emergency Medicine; PCP Internal Medicine
DX: K62.5 Hemorrhage of anus and rectum (principal); R10.30 Lower abdominal pain, unspecified; E87.1 Hypo-osmolality and hyponatremia
CPT/HCPCS: 36415; 74177; 80053; 81003; 81015; 85025; 85610; 85730; 87077; 87086; 87186; 93005; 99284; Q9967

== ENCOUNTER 2019-11-23 20:57 | Emergency (ER) | payer MEDICARE, OTHER, SELFPAY ==
[2019-11-22 14:14] VITALS: BMI 21.2
[2019-11-23 21:00] VITALS: BP 184/81; PULSE 95; RESP 20; TEMP 36.9; O2SAT 100; BMI 21.2
--- NOTE | 2019-11-23 21:41 | ED_ITS ---
HPI - Allergic Reaction General Chief complaint: Allergic Reaction Stated complaint: itching all over Time Seen by Provider: 11/23/19 21:11 Source: patient Mode of arrival: Wheelchair Limitations: no limitations History of Present Illness HPI narrative: Patient is an 84-year-old female who was seen here in the emergency department just over 24 hours ago. Did have a CT scan performed at that time. Was discharged home. She states that last evening which is several hours after she was discharged in the emergency department she started noticing some itching on her back. She also notice redness on her back. Also has the same symptoms on her lower abdomen and also on her upper arms. She tried some topical Benadryl cream without any improvement. She has no problems breathing or swallowing. Has never had a reaction like this in the past. States that it is itching. Related Data Home Medications Medication Instructions Recorded Confirmed calcium carbonate [Calcium 500] 500 mg PO DAILY #0 02/24/11 11/22/19 multivitamin 1 tab PO DAILY #0 02/24/11 11/22/19 trolamine salicylate 10 % lotion 1 applictn TOP Q4H PRN ml 10/24/19 11/22/19 tramadol 50 mg tablet 50 mg PO Q6H PRN 11/13/19 11/22/19 Previous Rx's Medication Instructions Recorded dicyclomine 20 mg tablet 20 mg PO QID PRN #90 tab 08/14/18 Disabled Parking #1 each 11/02/18 omeprazole 40 mg capsule,delayed 40 mg PO DAILY #30 cap 11/02/18 release lorazepam 0.5 mg tablet 0.5 - 1 mg PO Q6H PRN #20 tab 01/14/19 psyllium seed (sugar) 1 tbsp PO DAILY #1254 gram 07/01/19 hyoscyamine sulfate 0.125 mg See Rx Instructions .ROUTE 07/04/19 sublingual tablet .COMPLEX #45 each acetaminophen 975 mg PO TID #40 tab 09/23/19 calcium citrate [Calcitrate] 600 mg PO BIDWM #40 tab 09/23/19 cholecalciferol (vitamin D3) 5,000 unit PO DAILY #40 tab 09/23/19 [Vitamin D3] docusate sodium [DOK] 100 mg PO BID #40 cap 09/23/19 ferrous gluconate 324 mg PO DAILY #40 tab 09/23/19 ondansetron 4 mg PO Q4HR PRN #40 tab 09/23/19 chlordiazepoxide-clidinium 5 1 cap PO DAILY #90 cap 11/13/19 mg-2.5 mg capsule lisinopril 40 mg tablet 40 mg PO DAILY #90 tab 11/13/19 famotidine 40 mg tablet 40 mg PO DAILY PRN #30 tab 11/22/19 prednisone 20 mg PO DAILY 5 Days #5 tab 11/23/19 Allergies Allergy/AdvReac Type Severity Reaction Status Date / Time levofloxacin [From LEVAQUIN] AdvReac Unknown dizziness, Verified 11/23/19 21:12 not sure if related or not...08/30/16 Review of Systems Constitutional Constitutional: Denies fatigue and Denies fever(s) Cardiovascular Cardiovascular: Denies chest pain and Denies dyspnea Respiratory Respiratory: Denies dyspnea Gastrointestinal Gastrointestinal: Denies abdominal pain and Denies vomiting Integumentary/Breasts Skin/Breast: Reports pruritus and Reports rash Neurologic Neurologic: Denies behavioral changes Psychiatric Psychiatric: Denies behavioral changes Endocrine Endocrine: Denies fatigue Hematologic/Lymphatic Hematologic/Lymphatic: Denies easy bleeding and Denies easy bruising Patient History Medical History Abdominal pain (Chronic) Anxiety (Chronic 09/16/13) Diverticulosis of large intestine (Chronic) Essential hypertension (Chronic 02/24/11) History of adenomatous polyp of colon (Chronic) Hypertension (Acute) Irritable bowel syndrome with diarrhea (Chronic 09/13/16) Irritable bowel syndrome without diarrhea (Chronic 05/28/15) Lung nodule seen on imaging study (Chronic 10/03/12) Mixed hyperlipidemia (Chronic 02/24/11) Osteoporosis (Chronic 02/24/11) Social History marital status: number of children: 1 household members: none lives independently: Yes caregiver/support person: Yes (Step daughter) housing: apartment pets and animals: No education level: high school occupational status: other 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 hortencia/mandaen: [employer] leisure activities: music, reading and other Smoking Status: Never smoker Tobacco: How many years used: 0 alcohol intake: current substance use type: does not use Smoking Status: Never smoker alcohol intake frequency: holidays/special occasions only Substance Use Type: does not use Exam Initial Vital Signs Initial Vital Signs: Vital Signs Temperature 98.4 F 11/23/19 21:00 Pulse Rate 95 H 11/23/19 21:00 Respiratory Rate 20 11/23/19 21:00 Blood Pressure 184/81 H 11/23/19 21:00 Pulse Oximetry 100 11/23/19 21:00 Const General: cooperative, comfortable and well developed [facility] Head: normal to inspection and normocephalic Resp Effort & Inspection: normal respiratory effort Auscultation: clear to auscultation bilaterally Skin Other: Patient with diffuse erythema located throughout her entire back on also lower abdomen and also bilateral upper arms. Has scattered urticaria located within the erythema. No vesicles. Extrem General: capillary refill normal Course Orders Ordered: Discontinued Medications Diphenhydramine HCl (Benadryl) 25 mg IV NOW ONE Stop: 11/23/19 21:42 Last Admin: 11/23/19 22:03 Dose: 25 mg Documented by: CTRSANAZ Methylprednisolone (Solu-Medrol 125 Mg Vial) 125 mg IV NOW ONE Stop: 11/23/19 21:42 Last Admin: 11/23/19 22:03 Dose: 125 mg Documented by: CTRSANAZ Vital Signs Vital signs: Vital Signs - 8 hr 11/23/19 21:00 11/23/19 22:05 Temperature 98.4 F Pulse Rate 95 H 89 Respiratory Rate 20 16 Blood Pressure 184/81 H Blood Pressure [Right Arm] 194/89 H Pulse Oximetry 100 100 MDM - Allergic Reaction MDM Narrative Medical decision making narrative: Patient without respiratory distress. No vomiting. Physical exam is not consistent with anaphylaxis. Unsure the exact etiology of her rash. Does not follow any specific pattern for an infectious etiology. Did get some improvement with the Benadryl in the steroids. I feel we can hold on further workup for now. Will give a prescription for steroids. We did discuss use of Benadryl. Did discuss the importance of being careful at night because the Benadryl can make her drowsy. She does have a ride home. She was given return precautions. She expressed understanding and agreement. Discharge Plan Departure Patient Disposition: Home Clinical Impression: Rash Instructions: DI for Rash Activity Restrictions/Additional Instructions: Unfortunately we do not know the exact cause of your rash however the medicines that you were given this evening and also the prescriptions should help with the symptoms. The Benadryl can make you drowsy so you need to be careful to avoid falling. Contact your primary provider for follow-up. You can take 25 mg of Benadryl every 4-6 hours as needed for the itching. You can purchase this [id number]. Prescriptions: New prednisone 20 mg tablet 20 mg PO DAILY 5 Days Qty: 5 RF: 0 No Action multivitamin Tablet 1 tab PO DAILY Qty: 0 RF: 0 calcium carbonate [Calcium 500] 500 mg calcium (1,250 mg) Tablet 500 mg PO DAILY Qty: 0 RF: 0 hyoscyamine sulfate 0.125 mg tablet, sublingual See Rx Instructions .ROUTE .COMPLEX Qty: 45 RF: 11 trolamine salicylate 10 % lotion 1 applictn TOP Q4H PRN (Reason: hip pain) RF: 0 lisinopril 40 mg tablet 40 mg PO DAILY Qty: 90 RF: 1 famotidine 40 mg tablet 40 mg PO DAILY PRN (Reason: heartburn) Qty: 30 RF: 5 (DME) Disabled Parking Qty: 1 RF: 0 omeprazole 40 mg capsule,delayed release(DR/EC) 40 mg PO DAILY Qty: 30 RF: 5 dicyclomine 20 mg tablet 20 mg PO QID PRN (Reason: stomach cramps) Qty: 90 RF: 2 lorazepam [Ativan] 0.5 mg tablet 0.5 - 1 mg PO Q6H PRN (Reason: Anxiety) Qty: 20 RF: 0 Metamucil (sugar) Powder 1 tbsp PO DAILY Qty: 1254 RF: 0 tramadol 50 mg tablet 50 mg PO Q6H PRNRF: 0 chlordiazepoxide-clidinium 5-2.5 mg capsule 1 cap PO DAILY Qty: 90 RF: 3 acetaminophen 325 mg Tablet 975 mg PO TID Qty: 40 RF: 0 docusate sodium [DOK] 100 mg Capsule 100 mg PO BID Qty: 40 RF: 0 calcium citrate [Calcitrate] 200 mg (950 mg) Tablet 600 mg PO BIDWM Qty: 40 RF: 0 ferrous gluconate 324 mg (38 mg iron) Tablet 324 mg PO DAILY Qty: 40 RF: 0 cholecalciferol (vitamin D3) [Vitamin D3] 125 mcg (5,000 unit) Tablet 5,000 unit PO DAILY Qty: 40 RF: 0 ondansetron 4 mg Tablet,Disintegrating 4 mg PO Q4HR PRN (Reason: Nausea And Vomiting) Qty: 40 RF: 0 Referrals: Brain Gomez MD [Primary Care Provider] -
[2019-11-23] MEDS: methylPREDNISolone 125 MG/2 ML VIAL IV (22:03)
[2019-11-23] MEDS: diphenhydrAMINE 50 MG/ML VIAL 25 MG IV (22:03)
[2019-11-23 22:05] VITALS: BP 194/89; PULSE 89; RESP 16; O2SAT 100
[2019-11-23 22:53] VITALS: BP 174/83; PULSE 77; RESP 14; O2SAT 97
[2019-11-23 23:12] VITALS: BP 151/74; PULSE 78; RESP 16; O2SAT 97
== END 2019-11-23 23:10 | disposition home or self-care (01) ==
PROVIDERS: Emergency Provider Emergency Medicine; PCP Internal Medicine
DX: R21 Rash and other nonspecific skin eruption (principal)
CPT/HCPCS: 96374; 96375; 99284; J1200; J2930

== ENCOUNTER → 2020-02-18 14:21 | Outpatient (CLI) | payer MEDICARE, OTHER, SELFPAY ==
--- NOTE | 2020-02-18 14:23 | DI.RAD.S_ITS ---
PROCEDURE: XR LUMBAR SPINE 2-3V INDICATIONS: pain and diffuse TTP over L3-L5 1 week s/p fall. R/O fx. TECHNIQUE: 3 views of the lumbar spine were acquired. COMPARISON: [facility], CT, CT ABDOMEN PELVIS W CON, 11/22/2019, 17:21. FINDINGS: Bones: No definite change in vertebral body height at L4. T11 and T12 compression fractures are better seen on the comparison CT fractures. Diffuse [id number] lumbar spondylosis and facet arthropathy. Scattered vascular calcifications in the aorta. Dextrocurvature. Soft tissues: Overlying bowel gas pattern is normal. No suspicious soft tissue calcifications. IMPRESSION: Suboptimal evaluation due to diffuse osteopenia and body habitus. No definite new vertebral body fracture, although if clinically warranted, follow-up with CT or MRI could be performed. Dictated by: Rey Sifuentes M.D. on 02/18/2020 at 15:51 Approved by: Rey Sifuentes M.D. on 02/18/2020 at 15:54
== END ==
PROVIDERS: PCP Internal Medicine; Referring Provider Registered Nurse Diabetes Educator; Visit Provider Registered Nurse Diabetes Educator
DX: M54.5 Low back pain (principal); M47.816 Spondylosis without myelopathy or radiculopathy, lumbar region; M85.88 Other specified disorders of bone density and structure, other site; M48.54XS Collapsed vertebra, not elsewhere classified, thoracic region, sequela of fracture
CPT/HCPCS: 72100

== ENCOUNTER → 2020-06-06 09:26 | Outpatient (CLI) | payer MEDICARE, OTHER, SELFPAY ==
[2020-06-06 10:14] LABS: COVID19 -Nasal RAPID Negative (Negative)
== END ==
PROVIDERS: PCP Internal Medicine; Visit Provider Physician Assistant
DX: Z11.59 Encounter for screening for other viral diseases (principal)
CPT/HCPCS: 87635

== ENCOUNTER 2020-06-09 08:18 | Day surgery (SDC) | payer MEDICARE, OTHER, SELFPAY ==
[2020-06-09] MEDS: PROPARACAINE 0.5% OPHTH SOL 2 DROPS EYE-OP (09:00)
[2020-06-09] MEDS: CATARACT EYE COMPOUND (10 DROPS/SYRINGE) 3 DROPS EYE-OP (09:01)
[2020-06-09 09:02] VITALS: BP 172/91; PULSE 93; RESP 16; TEMP 37.3; O2SAT 98; BMI 19.9
--- NOTE | 2020-06-09 09:56 | PM.PREOP ---
Pre-operative Note Interval Note History & Physical reviewed/Exam performed by Physician: Yes Changes to H&P: No
--- NOTE | 2020-06-09 09:56 | PM.OP.1 ---
Operative Date/Time/Diagnoses Pre-op diagnosis: Nuclear cataract right eye Procedure & Clinicians Procedure: Cataract Surgery Same procedure as scheduled: Yes Surgeon: Serg Calvillo Anesthesia Type: MAC +/- and Sedation Operative Notes Procedure in detail: Patient brought to the operating suite. Tetracaine drops placed in the right eye. Patient was prepped and draped in sterile manner. Wire lid speculum was placed in the eye. Betadine drops were placed on the eye. This was irrigated. Lidocaine jelly was placed on the eye. A paracentesis port was created with a side-port blade. 0.1 mL 1% preservative free lidocaine was injected into the anterior chamber. The anterior chamber was deepened with viscoelastic. 2.6 mm keratome was used to create a temporal clear corneal incision. Cystotome and Utrata forceps were used to create continuous tear capsulorrhexis. Balanced salt solution was used to hydro dissect the nucleus. The phacoemulsification handpiece was inserted and the nucleus was removed using the stop and chop technique. The nucleous was very dense. The irrigation aspiration handpiece was inserted and the remaining cortex was removed. Anterior chamber was deepened with viscoelastic. An Mdaden ZCB00 intraocular lens with a power of 30.0 was injected into the capsular bag. Irrigation aspiration handpiece was inserted and the remaining viscoelastic was removed. Incision was hydrated with balanced salt solution and found to be leak free with pressure with Weck-Anitra sponges. 0.1 mL Vigamox injected anterior chamber. 0.3 mL Kenalog 10 mg was injected subconjunctivally. Lid speculum was removed. The patient left the operating room in excellent condition. Complications: none Post-operative Condition: stable Disposition: same day surgery
[2020-06-09] MEDS: PHENYLEPHRINE/LIDOCAINE VIAL (OR) 0.2 ML EYE-OP (10:21)
[2020-06-09] MEDS: MOXIFLOXACIN INJ 5 MG/ML VIAL EYE-OP (10:21)
[2020-06-09] MEDS: BALANCED SALT IRRIG SOLN NO.2 500 ML, EPINEPHrine 1 MG IRR (10:22)
[2020-06-09] MEDS: CHONDROIDTIN/SOD HYALURONATE 1.05 ML SYRINGE INTRAOCULA (10:22)
[2020-06-09] MEDS: TRIAMCINOLONE 50 MG/5 ML VIAL INJ (10:22)
[2020-06-09] MEDS: LIDOCAINE JELLY 2% 5 ML 1 APPLIC TOP (10:22)
[2020-06-09] MEDS: TETRACAINE 0.5% OPHTH DROPS 4 ML 2 DROPS EYE-OP (10:22)
[2020-06-09 10:36] VITALS: BP 172/85; PULSE 86; RESP 16; TEMP 36.4; O2SAT 100
[2020-06-09 11:13] VITALS: BP 174/92; PULSE 81; RESP 16; TEMP 36.9; O2SAT 100
--- NOTE | 2020-06-09 11:36 | SUR.PHASEII ---
Pt arrived from OR on stretcher, was a little sleepy. called brother (her ride) and he was on his way. He was able to come inside and go over d/c instructions. Pt tolerated water without issue. up to w/c with 1 person assist. out to car in w/c with RN escort. Aware of f/u apt tomorrow at 0900. pt took d/c instructions with her at d/c. pt took all belongings with her at d/c
== END 2020-06-09 11:20 | disposition home or self-care (01) ==
PROVIDERS: PCP Internal Medicine; Referring Provider Internal Medicine; Visit Provider Ophthalmology
PROC: (CPT 66984; principal; 2020-06-09 10:15)
DX: H25.11 Age-related nuclear cataract, right eye (principal); I10 Essential (primary) hypertension
CPT/HCPCS: 66984; J0171; J2250; J3010; J3301

== ENCOUNTER → 2020-06-22 13:29 | Outpatient (CLI) | payer MEDICARE, OTHER, SELFPAY ==
[2020-06-22 14:12] LABS: COVID19 -Nasal RAPID Negative (Negative)
== END ==
PROVIDERS: PCP Internal Medicine; Visit Provider Physician Assistant
DX: Z11.59 Encounter for screening for other viral diseases (principal)
CPT/HCPCS: 87635

== ENCOUNTER 2020-06-23 08:13 | Day surgery (SDC) | payer MEDICARE, OTHER, SELFPAY ==
[2020-06-23] MEDS: PROPARACAINE 0.5% OPHTH SOL 2 DROPS EYE-OP (08:50)
[2020-06-23 08:57] VITALS: BP 168/84; PULSE 71; RESP 16; TEMP 37.1; O2SAT 94
[2020-06-23] MEDS: CATARACT EYE COMPOUND (10 DROPS/SYRINGE) 3 DROPS EYE-OP (09:09)
--- NOTE | 2020-06-23 09:57 | P.OP_ITS ---
Operative Date/Time/Diagnoses Pre-op diagnosis: Nuclear Cataract Left eye Post-op diagnosis: same Procedure & Clinicians Same procedure as scheduled: Yes Surgeon: Serg Calvillo Anesthesia Type: MAC +/- and Sedation Operative Notes Procedure in detail: Patient brought to the operating suite. Tetracaine drops placed in the left eye. Patient was prepped and draped in sterile manner. Wire lid speculum was placed in the eye. Betadine drops were placed on the eye. This was irrigated. Lidocaine jelly was placed on the eye. A paracentesis port was created with a side-port blade. 0.1 mL 1% preservative free lidocaine was injected into the anterior chamber. The anterior chamber was deepened with viscoelastic. 2.6 mm keratome was used to create a temporal clear corneal incision. Cystotome and Utrata forceps were used to create continuous tear capsulorrhexis. Balanced salt solution was used to hydro dissect the nucleus. The phacoemulsification handpiece was inserted and the nucleus was removed using the stop and chop technique. The irrigation aspiration handpiece was inserted and the remaining cortex was removed. Anterior chamber was deepened with viscoe lastic. An Madden ZCB00 intraocular lens with a power of 27.5 was injected into the capsular bag. Irrigation aspiration handpiece was inserted and the remaining viscoelastic was removed. Incision was hydrated with balanced salt solution and found to be leak free with pressure with Weck-Anitra sponges. 0.1 mL Vigamox injected anterior chamber. 0.3 mL Kenalog 10 mg was injected subconjunctivally. Lid speculum was removed. The patient left the operating room in excellent condition. Complications: none Post-operative Condition: stable Disposition: same day surgery
--- NOTE | 2020-06-23 09:57 | PM.PREOP ---
Pre-operative Note Interval Note History & Physical reviewed/Exam performed by Physician: Yes Changes to H&P: No
[2020-06-23] MEDS: PHENYLEPHRINE/LIDOCAINE VIAL (OR) 0.2 ML EYE-OP (10:16)
[2020-06-23] MEDS: MOXIFLOXACIN INJ 5 MG/ML VIAL EYE-OP (10:17)
[2020-06-23] MEDS: LIDOCAINE JELLY 2% 5 ML 1 APPLIC TOP (10:18)
[2020-06-23] MEDS: CHONDROIDTIN/SOD HYALURONATE 1.05 ML SYRINGE INTRAOCULA (10:18)
[2020-06-23] MEDS: TETRACAINE 0.5% OPHTH DROPS 4 ML 2 DROPS EYE-OP (10:18)
[2020-06-23] MEDS: TRIAMCINOLONE 50 MG/5 ML VIAL INJ (10:18)
[2020-06-23] MEDS: BALANCED SALT IRRIG SOLN NO.2 500 ML, EPINEPHrine 1 MG IRR (10:19)
[2020-06-23 10:37] VITALS: BP 170/82; PULSE 100; RESP 16; TEMP 36.3; O2SAT 95
[2020-06-23 11:10] VITALS: BP 170/88; PULSE 68; RESP 16; TEMP 36.1; O2SAT 97
== END 2020-06-23 11:10 | disposition home or self-care (01) ==
PROVIDERS: PCP Internal Medicine; Referring Provider Ophthalmology; Visit Provider Ophthalmology
PROC: (CPT 66984; principal; 2020-06-23 10:15)
DX: H25.12 Age-related nuclear cataract, left eye (principal); I10 Essential (primary) hypertension
CPT/HCPCS: 66984; J0171; J2250; J3010; J3301

== ENCOUNTER 2020-10-30 07:03 | Emergency (ER) | payer MEDICARE, OTHER, SELFPAY ==
[2020-10-30 07:15] VITALS: BP 196/95; PULSE 85; RESP 16; TEMP 36.9; O2SAT 98
--- NOTE | 2020-10-30 07:28 | ED.GENADULT ---
HPI - General Adult General Chief complaint: Back Pain/Injury Stated complaint: back issues Time Seen by Provider: 10/30/20 07:07 Source: patient Mode of arrival: Family Vehicle Limitations: no limitations History of Present Illness HPI narrative: 85-year-old female who is here for evaluation of back discomfort. She states that approximately 1 week ago she was carrying her walker in her hand (she does not use her walker while she is at home) and in the other hand she was carrying some laundry. She states that she started to have lower bilateral back pain started afterwards. This was several days ago. She is been taking ibuprofen which does seem to help somewhat but then it comes back on its own. She is not having any urinary problems. No bowel changes. No radiation down into her legs. She does have a history of diverticulitis and hypertension. She did not take her blood pressure medicine this morning and she also states that her blood pressure is elevated when she becomes nervous. She is having no abdominal pain. No fevers. Related Data Home Medications Medication Instructions Recorded Confirmed calcium carbonate [Calcium 500] 500 mg PO DAILY #0 02/24/11 09/28/20 multivitamin 1 tab PO DAILY #0 02/24/11 09/28/20 acetaminophen 500 mg PO TID PRN 06/09/20 09/28/20 fluticasone propionate 50 2 spray NASAL BEDTIME PRN gram 06/29/20 09/28/20 mcg/actuation nasal spray,suspension Previous Rx's Medication Instructions Recorded dicyclomine 20 mg tablet 20 mg PO QID PRN #90 tab 08/14/18 Disabled Parking #1 each 11/02/18 psyllium seed (sugar) oral powder 1 tbsp PO DAILY #1254 gram 07/01/19 chlordiazepoxide-clidinium 5 1 cap PO DAILY #90 cap 11/13/19 mg-2.5 mg capsule hyoscyamine sulfate 0.125 mg See Rx Instructions .ROUTE 02/07/20 sublingual tablet .COMPLEX #45 each lisinopril 40 mg tablet 40 mg PO DAILY #90 tab 05/08/20 lorazepam 0.5 mg tablet 0.5 - 1 mg PO Q6H PRN #20 tab 06/29/20 omeprazole 40 mg capsule,delayed 40 mg PO DAILY #30 cap 07/06/20 release Allergies Allergy/AdvReac Type Severity Reaction Status Date / Time levofloxacin [From LEVAQUIN] AdvReac Unknown dizziness, Verified 09/28/20 11:47 not sure if related or not...08/30/16 Review of Systems Constitutional Constitutional: Denies chills, Denies fever(s) and Denies headache(s) ENT Ears, Nose, Mouth, and Throat: Denies headache(s) Cardiovascular Cardiovascular: Denies chest pain and Denies dyspnea Respiratory Respiratory: Denies cough and Denies dyspnea Gastrointestinal Gastrointestinal: Denies abdominal pain, Denies change in bowel habits, Denies nausea and Denies vomiting Genitourinary Genitourinary: Denies dysuria Genitourinary: Denies dysuria Musculoskeletal Musculoskeletal: Denies arthralgias, Reports back pain and Denies myalgias Integumentary/Breasts Skin/Breast: Denies lesions and Denies rash Neurologic Neurologic: Denies behavioral changes and Denies headache(s) Psychiatric Psychiatric: Denies behavioral changes Hematologic/Lymphatic On Anticoagulants: No Allergic/Immunologic Allergic/Immunologic: Denies urticaria Patient History Medical History Abdominal pain Anxiety (09/16/13) Diverticulosis of large intestine Essential hypertension (02/24/11) History of adenomatous polyp of colon Hypertension Irritable bowel syndrome with diarrhea (09/13/16) Irritable bowel syndrome without diarrhea (05/28/15) Low back pain Lung nodule seen on imaging study (10/03/12) Mixed hyperlipidemia (02/24/11) Osteoporosis (02/24/11) Surgical History H/O colonoscopy History of appendectomy History of foot surgery Hx of appendectomy Social History marital status: number of children: 1 household members: none lives independently: Yes caregiver/support person: Yes (Step daughter) housing: apartment pets and animals: No education level: high school occupational status: other 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[employer] leisure activities: music, reading and other Smoking Status: Never smoker Tobacco: How many years used: 0 alcohol intake: current substance use type: does not use Smoking Status: Never smoker alcohol intake frequency: a few times a week Alcohol type: wine Substance Use Type: does not use Exam Initial Vital Signs Initial Vital Signs: Vital Signs Temperature 98.4 F 10/30/20 07:15 Pulse Rate 85 10/30/20 07:15 Respiratory Rate 16 10/30/20 07:15 Blood Pressure 196/95 H 10/30/20 07:15 Pulse Oximetry 98 10/30/20 07:15 Const General: cooperative, comfortable and well developed Limitations: mental status not altered HENMT Head: normal to inspection and normocephalic Eyes General: appearance normal, both eyes and all related structures Neck Neck: No anterior neck swelling Resp Effort & Inspection: normal respiratory effort Cardio Rate: regular rate GI Inspection: non-distended Palpation: soft, No firm and No tender General: bladder normal to palpation Bimanual Exam- Vagina & Uterus: bladder normal to palpation Back/Spine/Pelvis Cervical Spine: No cervical spinal tenderness Thoracic/Lumbar Spine: No paraspinal tenderness, No thoracic spinal tenderness and No lumbar spinal tenderness Skin Lesions: no lesions Rashes: no rashes Neuro General: patient alert, patient awake and patient oriented x3 Cognition: normal cognition Speech: speech normal Extrem General: capillary refill normal Psych Appearance: grossly normal and well kempt Course Orders Ordered: ED Orders 10/30/20 07:28 US abd aorta aneurysm screen Stat Discontinued Medications Ibuprofen (Ibuprofen 400 Mg Tablet) 400 mg PO NOW ONE Stop: 10/30/20 07:52 Last Admin: 10/30/20 08:04 Dose: 400 mg Documented by: ELIO Vital Signs Vital signs: Vital Signs - 8 hr 10/30/20 07:15 10/30/20 08:49 Temperature 98.4 F 98.6 F Pulse Rate 85 76 Respiratory Rate 16 16 Blood Pressure 196/95 H 173/84 H Pulse Oximetry 98 100 Medical Decision Making Imaging Data US - abdomen: Radiologist's Impression: [address] [id number] ReportSigned Patient: Mahsa Storey [facility]#: [id number]: [id number]:[id number]/Sex: 85 / FDate of Service: 10/30/20Loc: EDAccession Number: [id number] Procedure: US abd aorta aneurysm screen Ordering Provider: Lanker,Cordell D.O. PROCEDURE: US ABD AORTA ANEURYSM SCREEN INDICATIONS: BACK PAIN TECHNIQUE: Real time scanning was performed of the aorta and iliac arteries, with image documentation. COMPARISON: [facility], CT, CT ABDOMEN PELVIS W NATHANIEL, 11/22/2019, 17:21. FINDINGS: Aorta: Proximal aortic diameter measures 2.0 cm. Mid-aorta measures 1.3 cm. Distal aortic diameter is 1.3 cm. There is scattered calcified atherosclerotic plaque. Iliac arteries: Right common iliac artery measures 0.9 cm. Left common iliac artery measures 0.9 cm. IMPRESSION: 1. No evidence of abdominal aortic aneurysm. Dictated by: Pawel Zacarias M.D. on 10/30/2020 at 8:03 Approved by: Pawel Zacarias M.D. on 10/30/2020 at 8:06 MDM Narrative Medical decision making narrative: Her ultrasound shows no signs of abdominal aortic aneurysm. She is having no bowel symptoms. No urinary symptoms. No radiation down her legs. She is not currently having any discomfort at the time of my exam however she did ask for some ?pain medication? review of her prior medical history does show that she has had compression fractures in the past. But she has not had any falls. I do suspect that this is musculoskeletal in origin. We did discuss the use of ibuprofen at home. We discussed return precautions. She expressed understanding and agreement. Discharge Plan Departure Patient Disposition: Home Clinical Impression: Lower back pain Instructions: DI for Low Back Pain Activity Restrictions/Additional Instructions: Continue to take all of your medications as directed. You can take 400 mg of Motrin/ibuprofen every 8 hours as needed for any discomfort. Be sure to take this with some food as a can irritate her stomach. Contact your primary provider for a follow-up. Return to the emergency department for any new or worsening symptoms Prescriptions: No Action multivitamin Tablet 1 tab PO DAILY Qty: 0 RF: 0 calcium carbonate [Calcium 500] 500 mg calcium (1,250 mg) Tablet 500 mg PO DAILY Qty: 0 RF: 0 lisinopril 40 mg tablet 40 mg PO DAILY Qty: 90 RF: 1 omeprazole 40 mg capsule,delayed release(DR/EC) 40 mg PO DAILY Qty: 30 RF: 5 (DME) Disabled Parking Qty: 1 RF: 0 hyoscyamine sulfate 0.125 mg tablet, sublingual See Rx Instructions .ROUTE .COMPLEX Qty: 45 RF: 11 dicyclomine 20 mg tablet 20 mg PO QID PRN (Reason: stomach cramps) Qty: 90 RF: 2 Metamucil (sugar) Powder 1 tbsp PO DAILY Qty: 1254 RF: 0 chlordiazepoxide-clidinium 5-2.5 mg capsule 1 cap PO DAILY Qty: 90 RF: 3 fluticasone propionate 50 mcg/actuation spray,suspension 2 spray NASAL BEDTIME PRN (Reason: allergy symptoms) RF: 0 lorazepam [Ativan] 0.5 mg tablet 0.5 - 1 mg PO Q6H PRN (Reason: Anxiety) Qty: 20 RF: 0 acetaminophen 325 mg tablet 500 mg PO TID PRN (Reason: Pain (Scale Score 1-3)) RF: 0 Referrals: Brain Gomez MD [Primary Care Provider] -
[2020-10-30] MEDS: IBUPROFEN 400 MG TABLET PO (08:04)
[2020-10-30 08:49] VITALS: BP 173/84; PULSE 76; RESP 16; TEMP 37; O2SAT 100
== END 2020-10-30 08:51 | disposition home or self-care (01) ==
PROVIDERS: Emergency Provider Emergency Medicine; PCP Internal Medicine
DX: M54.5 Low back pain (principal)
CPT/HCPCS: 76706; 99283

== ENCOUNTER 2020-11-01 16:27 | Emergency (ER) | payer MEDICARE, OTHER, SELFPAY ==
[2020-11-01 17:38] VITALS: BP 187/90; PULSE 83; RESP 14; TEMP 36.8; O2SAT 99
--- NOTE | 2020-11-01 18:57 | PC.NURSE ---
patient here recently and saw Dr. Christie. She did not understand that she could take 400mg of ibuprofen 3 times a day. She was only taking it once in the morning
--- NOTE | 2020-11-01 19:02 | ED_ITS ---
HPI - Back Pain/Injury General Chief Complaint: Back Pain/Injury Stated Complaint: loss of bladder control, told to come back to ER Time Seen by Provider: 11/01/20 18:45 Source: patient Mode of arrival: Ambulatory Limitations: no limitations History of Present Illness HPI Narrative: 85-year-old female who I evaluated in this emergency department a couple days ago for back discomfort. At that time I thought that it was musculoskeletal in origin. We started her on anti-inflammatories and she was given return precautions. She states that since that time she has been taking 200 mg of ibuprofen twice a day. She did purchase this [id number]. She states that when she takes the medicine her back pain does improvement then comes back again as the medicine wears off. Reason she came back to the emergency department today is because he was told that if she ever had any urinary symptoms she needed to come back and she states that 1 time today she urinated on herself. She has not any fevers. She does not have any radiation down into her legs. She has had a normal controlled urination since this 1 event earlier today. She states she feels like she is emptying her bladder when she goes to the bathroom. She does not have any numbness in her inner thighs. Related Data Home Medications Medication Instructions Recorded Confirmed calcium carbonate [Calcium 500] 500 mg PO DAILY #0 02/24/11 09/28/20 multivitamin 1 tab PO DAILY #0 02/24/11 09/28/20 acetaminophen 500 mg PO TID PRN 06/09/20 09/28/20 fluticasone propionate 50 2 spray NASAL BEDTIME PRN gram 06/29/20 09/28/20 mcg/actuation nasal spray,suspension Previous Rx's Medication Instructions Recorded dicyclomine 20 mg tablet 20 mg PO QID PRN #90 tab 08/14/18 Disabled Parking #1 each 11/02/18 psyllium seed (sugar) oral powder 1 tbsp PO DAILY #1254 gram 07/01/19 chlordiazepoxide-clidinium 5 1 cap PO DAILY #90 cap 11/13/19 mg-2.5 mg capsule hyoscyamine sulfate 0.125 mg See Rx Instructions .ROUTE 02/07/20 sublingual tablet .COMPLEX #45 each lisinopril 40 mg tablet 40 mg PO DAILY #90 tab 10/16/20 lorazepam 0.5 mg tablet 0.5 - 1 mg PO Q6H PRN #20 tab 06/29/20 omeprazole 40 mg capsule,delayed 40 mg PO DAILY #30 cap 07/06/20 release Allergies Allergy/AdvReac Type Severity Reaction Status Date / Time levofloxacin [From LEVAQUIN] AdvReac Unknown dizziness, Verified 09/28/20 11:47 not sure if related or not...08/30/16 Review of Systems Constitutional Constitutional: Denies fever(s) and Denies weakness ENT Ears, Nose, Mouth, and Throat: Denies vertigo, Denies dizziness and Denies disequilibrium Cardiovascular Cardiovascular: Denies chest pain and Denies dyspnea Respiratory Respiratory: Denies dyspnea Gastrointestinal Gastrointestinal: Denies abdominal pain Genitourinary Genitourinary: Denies dysuria, Denies urinary frequency, Denies urinary hesitancy, Reports urinary incontinence and Denies urinary urgency Genitourinary: Denies urinary frequency, Denies dysuria, Reports urinary incontinence, Denies urinary hesitancy and Denies urinary urgency Musculoskeletal Musculoskeletal: Denies arthralgias, Reports back pain, Denies myalgias and Denies tingling Integumentary/Breasts Skin/Breast: Denies lesions and Denies rash Neurologic Neurologic: Denies behavioral changes, Denies confusion, Denies vertigo, Denies dizziness, Denies sensory deficit, Denies tingling, Denies paresthesias, Denies disequilibrium and Denies weakness Psychiatric Psychiatric: Denies behavioral changes, Denies confusion and Denies depression Hematologic/Lymphatic On Anticoagulants: No Allergic/Immunologic Allergic/Immunologic: Denies urticaria Patient History Medical History Abdominal pain Anxiety (09/16/13) Diverticulosis of large intestine Essential hypertension (02/24/11) History of adenomatous polyp of colon Hypertension Irritable bowel syndrome with diarrhea (09/13/16) Irritable bowel syndrome without diarrhea (05/28/15) Low back pain Lung nodule seen on imaging study (10/03/12) Mixed hyperlipidemia (02/24/11) Osteoporosis (02/24/11) Surgical History H/O colonoscopy History of appendectomy History of foot surgery Hx of appendectomy Social History marital status: number of children: 1 household members: none lives independently: Yes caregiver/support person: Yes (Step daughter) housing: apartment pets and animals: No education level: high school occupational status: other 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 hortencia/gnosticism: Advent leisure activities: music, reading and other Smoking Status: Never smoker Tobacco: How many years used: 0 alcohol intake: current substance use type: does not use Smoking Status: Never smoker alcohol intake frequency: a few times a week Alcohol type: wine Substance Use Type: does not use Exam Initial Vital Signs Initial Vital Signs: Vital Signs Temperature 98.3 F 11/01/20 17:38 Pulse Rate 83 11/01/20 17:38 Respiratory Rate 14 11/01/20 17:38 Blood Pressure 187/90 H 11/01/20 17:38 Pulse Oximetry 99 11/01/20 17:38 Const General: cooperative and comfortable Limitations: mental status not altered HENMT Head: normal to inspection and normocephalic Resp Effort & Inspection: normal respiratory effort Cardio Rate: regular rate GI Inspection: non-distended Back/Spine/Pelvis Thoracic/Lumbar Spine: No lumbar spinal tenderness Skin Lesions: no lesions Rashes: no rashes Neuro General: patient alert, patient awake and patient oriented x3 Cognition: normal cognition Speech: speech normal Sensory Exam: no sensory deficits noted Extrem General: No edema Psych Appearance: grossly normal and well kempt Course Vital Signs Vital signs: Vital Signs - 8 hr 11/01/20 17:38 11/01/20 19:29 11/01/20 19:30 Temperature 98.3 F Pulse Rate 83 70 70 Respiratory Rate 14 16 16 Blood Pressure 187/90 H 184/93 H 184/93 H Pulse Oximetry 99 97 97 MDM - Back Pain/Injury MDM Narrative Medical decision making narrative: I had a discussion with her regarding her use of ibuprofen. She was somewhat confused about her discussion the last time that she was here. She thought that she could only take 400 mg a day. I did inform her that she could take 400 mg 3 times a day for her back discomfort. She had 1 episode today of urinary incontinence but since that time she has had normal urinary function. She states she feels like she is emptying her bladder. She has no radiation down into her legs. No saddle anesthesia. She has had no new falls or trauma. I feel that we can hold on further workup for now. I have low suspicion for cauda equina. I still believe this is musculoskeletal in origin. She is going to contact her primary doctor tomorrow for follow-up. She was given return precautions and follow-up instructions. She expressed understanding and agreement. Discharge Plan Departure Patient Disposition: Home Clinical Impression: Lower back pain Instructions: DI for Low Back Pain Activity Restrictions/Additional Instructions: You can continue to take 400 mg of Motrin/ibuprofen every 3 hours with food. Call your primary doctor tomorrow for follow-up. Return to the emergency department for any new or worsening symptoms. Prescriptions: No Action multivitamin Tablet 1 tab PO DAILY Qty: 0 RF: 0 calcium carbonate [Calcium 500] 500 mg calcium (1,250 mg) Tablet 500 mg PO DAILY Qty: 0 RF: 0 lisinopril 40 mg tablet 40 mg PO DAILY Qty: 90 RF: 1 omeprazole 40 mg capsule,delayed release(DR/EC) 40 mg PO DAILY Qty: 30 RF: 5 (DME) Disabled Parking Qty: 1 RF: 0 hyoscyamine sulfate 0.125 mg tablet, sublingual See Rx Instructions .ROUTE .COMPLEX Qty: 45 RF: 11 dicyclomine 20 mg tablet 20 mg PO QID PRN (Reason: stomach cramps) Qty: 90 RF: 2 Metamucil (sugar) Powder 1 tbsp PO DAILY Qty: 1254 RF: 0 chlordiazepoxide-clidinium 5-2.5 mg capsule 1 cap PO DAILY Qty: 90 RF: 3 fluticasone propionate 50 mcg/actuation spray,suspension 2 spray NASAL BEDTIME PRN (Reason: allergy symptoms) RF: 0 lorazepam [Ativan] 0.5 mg tablet 0.5 - 1 mg PO Q6H PRN (Reason: Anxiety) Qty: 20 RF: 0 acetaminophen 325 mg tablet 500 mg PO TID PRN (Reason: Pain (Scale Score 1-3)) RF: 0 Referrals: Brain Gomez MD [Primary Care Provider] -
[2020-11-01 19:29] VITALS: BP 184/93; PULSE 70; RESP 16; O2SAT 97
[2020-11-01 19:30] VITALS: BP 184/93; PULSE 70; RESP 16; O2SAT 97
== END 2020-11-01 19:31 | disposition home or self-care (01) ==
PROVIDERS: Emergency Provider Emergency Medicine; PCP Internal Medicine
DX: M54.5 Low back pain (principal)
CPT/HCPCS: 99281

== ENCOUNTER 2020-11-06 09:03 | Emergency (ER) | payer MEDICARE, OTHER, SELFPAY ==
[2020-11-06] VITALS (11 sets, daily range): BP systolic 171–205; BP diastolic 86–100; PULSE 75–92; RESP 16–20; TEMP 36.3; O2SAT 93–99
--- NOTE | 2020-11-06 10:01 | ED.BACK ---
HPI - Back Pain/Injury General Chief Complaint: Back Pain/Injury Stated Complaint: back problems off and on since [place] Time Seen by Provider: 11/06/20 09:34 Source: patient Limitations: no limitations History of Present Illness HPI Narrative: Patient is an 85-year-old female pain for the 3rd time since October 30. She [place] she [place] down and picked up a basket of clothes as she thinks maybe that exacerbated some low back pain. She has been in the ED a couple of times for it she had an x-ray and abdominal ultrasound she was instructed to take Tylenol and ibuprofen which she says helps some time. She denies any dizziness or lightheadedness. She is currently quite hypertensive with the systolic in the 190s. She denies any chest pain radiation to her legs. No abdominal pain. Previous notes indicate that her blood pressure is elevated when she was quite nervous. MD Complaint: back pain Onset (ago): week(s) Duration: constant Location: lumbar spine Severity: moderate Related Data Home Medications Medication Instructions Recorded Confirmed calcium carbonate [Calcium 500] 500 mg PO DAILY #0 02/24/11 09/28/20 multivitamin 1 tab PO DAILY #0 02/24/11 09/28/20 acetaminophen 500 mg PO TID PRN 06/09/20 09/28/20 fluticasone propionate 50 2 spray NASAL BEDTIME PRN gram 06/29/20 09/28/20 mcg/actuation nasal spray,suspension Previous Rx's Medication Instructions Recorded dicyclomine 20 mg tablet 20 mg PO QID PRN #90 tab 08/14/18 Disabled Parking #1 each 11/02/18 psyllium seed (sugar) oral powder 1 tbsp PO DAILY #1254 gram 07/01/19 chlordiazepoxide-clidinium 5 1 cap PO DAILY #90 cap 11/13/19 mg-2.5 mg capsule hyoscyamine sulfate 0.125 mg See Rx Instructions .ROUTE 02/07/20 sublingual tablet .COMPLEX #45 each lisinopril 40 mg tablet 40 mg PO DAILY #90 tab 05/08/20 lorazepam 0.5 mg tablet 0.5 - 1 mg PO Q6H PRN #20 tab 06/29/20 omeprazole 40 mg capsule,delayed 40 mg PO DAILY #30 cap 07/06/20 release lidocaine 1 patch TOPICAL DAILY PRN #15 ea 11/06/20 Allergies Allergy/AdvReac Type Severity Reaction Status Date / Time levofloxacin [From LEVAQUIN] AdvReac Unknown dizziness, Verified 11/06/20 09:35 not sure if related or not...08/30/16 Review of Systems Review of Systems Narrative: GENERAL: Denies chills, fatigue, malaise, fever, sweats, travel HEENT: Denies sinus pain, ear pain, sore throat, difficulty swallowing, neck pain RESPIRATORY: Denies dyspnea, cough, wheezing, hemoptysis, sputum. CARDIOVASCULAR: Denies chest pain, palpitations, orthopnea, edema GASTROINTESTINAL: Denies nausea, vomiting, abdominal pain, diarrhea, constipation, melena. : Denies dysuria, frequency, incontinence, hematuria, urinary retention, flank pain. MUSCULOSKELETAL: See HPI SKIN: No rash, no erythema, no pruritus NEUROLOGIC: Denies weakness, dizziness, headache, numbness, change in speech, confusion PSYCHIATRIC: No concerning psychosocial issues. 12 point review of systems is negative except for those stated above and HPI Patient History Medical History Abdominal pain Anxiety (09/16/13) Diverticulosis of large intestine Essential hypertension (02/24/11) History of adenomatous polyp of colon Hypertension Irritable bowel syndrome with diarrhea (09/13/16) Irritable bowel syndrome without diarrhea (05/28/15) Low back pain Lung nodule seen on imaging study (10/03/12) Mixed hyperlipidemia (02/24/11) Osteoporosis (02/24/11) Surgical History H/O colonoscopy History of appendectomy History of foot surgery Hx of appendectomy Social History marital status: number of children: 1 household members: none lives independently: Yes caregiver/support person: Yes (Step daughter) housing: apartment pets and animals: No education level: high school occupational status: other 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 HEENT: Head atraumatic,EOMI, pupils reactive, face symmetric, moist mucous membranes CARDIOVASCULAR: Regular rate and rhythm without murmurs, rubs or gallops. RESPIRATORY: Breath sounds equal bilaterally, no wheezes rales or rhonchi. ABDOMEN: Soft, nontender. Normoactive bowel sounds all 4 quadrants. No guarding or rebound. BACK: No vertebral tenderness or step-offs tender across the lower lumbar area bilateral side EXTREMITIES: Normal range of motion, no clubbing or edema. Neurovascularly intact NEUROLOGICAL: Alert and oriented x4.Normal gait and speech. SKIN: Warm, dry, no laceration, no petechiae, no rashes or lesions. Course Orders Ordered: ED Orders 11/06/20 10:43 EKG-12 Lead Stat 11/06/20 11:17 Complete Blood Count AUTO DIFF Stat Comprehensive Metabolic Panel Stat Troponin & CK Cardiac Panel Stat 11/06/20 11:35 CT angio chest abdomen pelvis Stat Discontinued Medications Ketorolac Tromethamine (Ketorolac 60 Mg/2 Ml Vial) 15 mg IV NOW ONE Stop: 11/06/20 10:44 Last Admin: 11/06/20 11:23 Dose: 15 mg Documented by: ZEINAB Vital Signs Vital signs: Vital Signs - 8 hr 11/06/20 09:32 11/06/20 09:33 11/06/20 10:00 Temperature 97.4 F L Pulse Rate 84 90 81 Respiratory Rate 18 Blood Pressure 205/98 H 205/98 H 190/93 H Pulse Oximetry 98 97 98 11/06/20 10:30 11/06/20 10:48 11/06/20 10:57 Temperature Pulse Rate 81 92 H 78 Respiratory Rate 20 Blood Pressure 196/97 H 201/87 H 181/94 H Pulse Oximetry 99 97 99 11/06/20 11:00 11/06/20 11:30 11/06/20 13:22 Temperature Pulse Rate 75 76 87 Respiratory Rate Blood Pressure 183/100 H 185/91 H Pulse Oximetry 99 93 99 11/06/20 13:24 11/06/20 13:32 Temperature Pulse Rate 88 88 Respiratory Rate 16 Blood Pressure 171/86 H 171/86 H Pulse Oximetry 98 98 MDM - Back Pain/Injury Lab Data Attestation: I reviewed the patient's lab results. Result diagrams: 11/06/20 11:17 11/06/20 11:17 Labs: Lab Results 11/06/20 11/06/20 Range/Units 11:17 11:17 WBC 4.3 L (4.5-11.0) X10^3/uL RBC 4.62 (4.0-5.2) X10^6/uL Hgb 13.4 (12.0-16.0) g/dL Hct 40.1 (36-46) % MCV 86.9 (80-100) fL MCH 29.0 (26-34) PG MCHC 33.4 (30-36) % RDW 14.1 (11.6-14.8) % Plt Count 269 (150-400) X10^3/uL Neut % (Auto) 68.3 (50-75) % Lymph % (Auto) 12.8 L (25-40) % Lyon % (Auto) 15.5 H (3-14) % Eos % (Auto) 1.5 L (2-4) % Baso % (Auto) 1.9 (0-2) % Neut # (Auto) 3000 (4326-3480) /uL Lymph # (Auto) 600 L (0888-8342) /uL Lyon # (Auto) 700 (0-900) /uL Eos # (Auto) 100 (0-450) /uL Baso # (Auto) 100 (0-100) /uL Sodium 129 L (137-145) mmol/L Potassium 4.2 (3.4-5.1) mmol/L Chloride 96 L (98-107) mmol/L Carbon Dioxide 27 (22-32) mmol/L BUN 7 (7-17) mg/dL Creatinine 0.57 (0.52-1.04) mg/dL Estimated GFR > 60.0 (>60) mL/min BUN/Creatinine Ratio 12.3 (6-22) Glucose 104 (80-110) mg/dL Calcium 9.8 (8.4-10.2) mg/dL Total Bilirubin 0.3 (0.2-1.3) mg/dL AST 24 (14-36) IU/L ALT 10 (<35) IU/L Alkaline Phosphatase 97 (38-126) U/L Total Creatine Kinase 33 (30-135) U/L CK-MB (CK-2) TNP CK-MB (CK-2) Rel Index TNP Troponin I < 0.012 (0.01-0.034) ng/mL Total Protein 7.8 (6.3-8.2) g/dL Albumin 4.4 (3.5-5.0) g/dL Globulin 3.4 (1.7-4.1) g/dL Albumin/Globulin Ratio 1.3 (1.0-2.8) Imaging Data CT scan - abdomen/pelvis: Radiologist's Impression: PROCEDURE: CT ANGIO CHEST ABDOMEN PELVIS INDICATIONS: persistant back pain r/o dissection TECHNIQUE: Precontrast 5 mm thick sections acquired from the lung apices to the iliac crests. After the administration of intravenous contrast, 2.5 mm thick sections again acquired from the lung apices to the iliac crests. Maximum intensity projection (MIP) oblique sagittal and coronal reformats were then acquired. For radiation dose reduction, the following was used: automated exposure control. COMPARISON: [facility], CR, XR LUMBAR SPINE 2-3V, 02/18/2020, 14:29. [facility], CT, CT ABDOMEN PELVIS W CON, 11/22/2019, 17:21. FINDINGS: Image quality: Excellent. AORTA and its attachments: Ascending and descending thoracic aorta and abdominal aorta are of normal caliber without aneurysm or dissection. On in ascending aorta measures 3.4 cm in diameter. Classic three-vessel arch anatomy. Great vessel origins are widely patent. Severe calcified proximal SFA stenosis. Celiac stenosis is probably mild. Left renal artery stenosis is probably mild. Right renal artery widely patent. NICOLASA widely patent. Common iliac arteries and external iliac arteries are patent. CHEST: Lungs and pleura: Multiple pulmonary nodules as follows: New line anterior right apex: 3 cm spiculated pulmonary nodule, image 97/6. Fissural nodule, minor fissure of light lung, measuring 5 mm. Reference image 226/6. Anterior lingula of left lung nodule, 5 mm, image 211/6. Vague nodularity in the inferior aspect of the lingula, with multiple small nodules present, may potentially represent mucous plugging. Reference images 228-236 of series 6. No acute airspace opacities. No pleural effusions or pneumothorax. Central and peripheral airways are patent and normal in caliber. Mediastinum: Heart size is normal. No pericardial effusion. Coronary artery calcifications. No mediastinal or hilar adenopathy by size criteria. Central pulmonary arteries are normal in size. Esophagus is normal in caliber. No hiatal hernias. Bones and chest wall: No axillary adenopathy by size criteria. Thyroid gland is unremarkable as visualized. . No suspicious bony lesions. Old moderate to severe compression fractures of T11 and T12. Interval inferior endplate compression fracture of L2, likely acute or subacute. This results in mild vertebral body height loss. Old mild L4 compression, healed since the previous study. Increased thoracic kyphosis. ABDOMEN: Vasculature: Probable mild celiac stenosis. Severe calcified SMA stenosis. NICOLASA patent. Probable mild left renal artery stenosis. Right renal artery patent. Solid organs: Liver is normal in size and enhancement. Gallbladder is unremarkable. Biliary system is non dilated. Pancreas enhances normally. Spleen is normal in size and enhancement. No adrenal nodules. Both kidneys are normal in size and enhancement, without hydronephrosis. Peritoneum and bowel: No free fluid or air. Bowel loops are normal in caliber and wall thickness. Extensive diverticulosis without evidence of diverticulitis. Nodes and vessels: No retroperitoneal or mesenteric adenopathy by size criteria. Inferior vena cava is normal in morphology. Miscellaneous: No ventral hernias. PELVIS: Genitourinary: Bladder wall thickness is normal. Miscellaneous: No inguinal hernias or adenopathy. No ventral hernias. Bones: No suspicious bony lesions. Old moderate to severe compression fractures of T11 and T12. Interval inferior endplate compression fracture of L2, likely acute or subacute. This results in mild vertebral body height loss. Old mild L4 compression, healed since the previous study. Increased thoracic kyphosis. Remote proximal right femoral ORIF, including femoral neck screws. IMPRESSION: 1. Normal caliber thoracic and abdominal aorta without dissection. 2. Multiple old osteoporotic compressions. 3. A L2 inferior endplate compression is likely acute or subacute. 4. Severe calcified SMA stenosis. At least mild proximal celiac stenosis. Question: Does this patient have any symptomatology suggesting chronic mesenteric ischemia? 5. Coronary artery disease. 6. Multiple small pulmonary nodules as described above. Please refer to the chart below for follow-up recommendations. 7. Diverticulosis. Fleischner Society criteria for SOLID lung nodule followup. Nodule size (mm)Low-risk patientHigh-risk patient<6 (single or multiple)No routine followup.Optional CT at 12 months. 6-8 (single or multiple)CT at 6-12 months, then optional CT at 18-24 mo.CT at 6-12 months, then CT at 18-24 months. >8 (single)CT at 3 months, PET-CT, or biopsy. Same as for low-risk pts. >8 (multiple)CT at 3-6 months, then optional CT at 18-24 mo.CT at 3-6 months, then CT at 18-24 months. Fleischner Society criteria for SUB-SOLID lung nodule followup. Solitary pure ground-glass nodules<6 mm (ground glass or part solid)No followup needed. 6 mm or larger (ground glass)CT at 6-12 months to confirm persistence, then CT every 2 years until 5 years.6 mm or larger (part solid)CT at 3-6 months to confirm persistence, then annual CT until 5 years if unchanged and solid component remains <6 mm. Multiple sub-solid nodules<6 mmCT at 3-6 months, then CT consider at 2 & 4 years for high risk patients. [address] at 3-6 months. Subsequent management based on most suspicious lesions. Recommendations do not apply to lung cancer screening, patients with immunosuppression, or patients with known primary cancer. Dictated by: Ga Magallanes M.D. on 11/06/2020 at 12:29 ECG Data Attestation: I personally reviewed and interpreted this ECG as follows: Prior ECG tracings: available for review Interpretation: Normal sinus rhythm rate 75 p.r. interval 172 QRS [address] changes, actually improved from previous EKG MDM Narrative Medical decision making narrative: This is patient's 3rd visit to the emergency department for back pain and hypertension. Concern for possible aortic dissection. CT angio does not show a dissection blood work does show mild hyponatremia. This is likely a musculoskeletal injury recommend, will try lidocaine patch. Discharge Plan Departure Patient Disposition: Home Clinical Impression: Back pain Qualifiers: Back pain location: low back pain Chronicity: chronic Back pain laterality: bilateral Sciatica presence: without sciatica Qualified Code(s): M54.5 - Low back pain Instructions: DI for Back Strain or Sprain Activity Restrictions/Additional Instructions: *You have been diagnosed with back pain *What to do: At this time I recommend a heating pad 20-30 minutes daily. Some light stretching. Please talk to your primary care provider about physical therapy *Continue to take medications as directed Lidocaine patch an area of pain for 12 hours only then removed--> SENT TO [facility] Tylenol 500 mg 3 times a day if needed for pain Ibuprofen 400 mg every 8 hours if needed for pain *Follow up with your primary care provider in 2-3 days *Return to ER if you should have the increasing pain, weakness in legs, loss of urine or any new, worsening or concerning symptoms Prescriptions: New lidocaine 5 % adhesive patch,medicated 1 patch topical DAILY PRN (Reason: back pain) Qty: 15 RF: 0 No Action multivitamin Tablet 1 tab PO DAILY Qty: 0 RF: 0 calcium carbonate [Calcium 500] 500 mg calcium (1,250 mg) Tablet 500 mg PO DAILY Qty: 0 RF: 0 lisinopril 40 mg tablet 40 mg PO DAILY Qty: 90 RF: 1 omeprazole 40 mg capsule,delayed release(DR/EC) 40 mg PO DAILY Qty: 30 RF: 5 (DME) Disabled Parking Qty: 1 RF: 0 hyoscyamine sulfate 0.125 mg tablet, sublingual See Rx Instructions .ROUTE .COMPLEX Qty: 45 RF: 11 dicyclomine 20 mg tablet 20 mg PO QID PRN (Reason: stomach cramps) Qty: 90 RF: 2 Metamucil (sugar) Powder 1 tbsp PO DAILY Qty: 1254 RF: 0 chlordiazepoxide-clidinium 5-2.5 mg capsule 1 cap PO DAILY Qty: 90 RF: 3 fluticasone propionate 50 mcg/actuation spray,suspension 2 spray NASAL BEDTIME PRN (Reason: allergy symptoms) RF: 0 lorazepam [Ativan] 0.5 mg tablet 0.5 - 1 mg PO Q6H PRN (Reason: Anxiety) Qty: 20 RF: 0 acetaminophen 325 mg tablet 500 mg PO TID PRN (Reason: Pain (Scale Score 1-3)) RF: 0 Referrals: Brain Gomez MD [Primary Care Provider] -
[2020-11-06] MEDS: KETOROLAC 60 MG/2 ML VIAL 15 MG IV (11:23)
[2020-11-06 11:28] LABS: Add Manual Diff / Slide Review NO; Basophils Absolute Auto 100 /uL (0-100); Basophils Percent Auto 1.9 % (0-2); Eosinophils Absolute Auto 100 /uL (0-450); Eosinophils Percent Auto 1.5 % (2-4); Hematocrit 40.1 % (36-46); Hemoglobin 13.4 g/dL (12.0-16.0); Lymphocytes Absolute Auto 600 /uL (1100-4500); Lymphocytes Percent Auto 12.8 % (25-40); Mean Corpuscular HGB Conc 33.4 % (30-36); Mean Corpuscular Volume 86.9 fL (80-100); Monocytes Absolute Auto 700 /uL (0-900); Monocytes Percent Auto 15.5 % (3-14); Neutrophils Absolute Auto 3000 /uL (1500-7000); Neutrophils Percent Auto 68.3 % (50-75); Platelet Count 269 X10^3/uL (150-400); Red Blood Cell Count 4.62 X10^6/uL (4.0-5.2); Red Cell Distribution Width 14.1 % (11.6-14.8); White Blood Cell Count 4.3 X10^3/uL (4.5-11.0)
--- NOTE | 2020-11-06 11:35 | DI.CT.S_ITS ---
PROCEDURE: CT ANGIO CHEST ABDOMEN PELVIS INDICATIONS: persistant back pain r/o dissection TECHNIQUE: Precontrast 5 mm thick sections acquired from the lung apices to the iliac crests. After the administration of intravenous contrast, 2.5 mm thick sections again acquired from the lung apices to the iliac crests. Maximum intensity projection (MIP) oblique sagittal and coronal reformats were then acquired. For radiation dose reduction, the following was used: automated exposure control. COMPARISON: [facility], CR, XR LUMBAR SPINE 2-3V, 02/18/2020, 14:29. [facility], CT, CT ABDOMEN PELVIS W CON, 11/22/2019, 17:21. FINDINGS: Image quality: Excellent. AORTA and its attachments: Ascending and descending thoracic aorta and abdominal aorta are of normal caliber without aneurysm or dissection. On in ascending aorta measures 3.4 cm in diameter. Classic three-vessel arch anatomy. Great vessel origins are widely patent. Severe calcified proximal SFA stenosis. Celiac stenosis is probably mild. Left renal artery stenosis is probably mild. Right renal artery widely patent. NICOLASA widely patent. Common iliac arteries and external iliac arteries are patent. CHEST: Lungs and pleura: Multiple pulmonary nodules as follows: New line anterior right apex: 3 cm spiculated pulmonary nodule, image 97/6. Fissural nodule, minor fissure of light lung, measuring 5 mm. Reference image 226/6. Anterior lingula of left lung nodule, 5 mm, image 211/6. Vague nodularity in the inferior aspect of the lingula, with multiple small nodules present, may potentially represent mucous plugging. Reference images 228-236 of series 6. No acute airspace opacities. No pleural effusions or pneumothorax. Central and peripheral airways are patent and normal in caliber. Mediastinum: Heart size is normal. No pericardial effusion. Coronary artery calcifications. No mediastinal or hilar adenopathy by size criteria. Central pulmonary arteries are normal in size. Esophagus is normal in caliber. No hiatal hernias. Bones and chest wall: No axillary adenopathy by size criteria. Thyroid gland is unremarkable as visualized. . No suspicious bony lesions. Old moderate to severe compression fractures of T11 and T12. Interval inferior endplate compression fracture of L2, likely acute or subacute. This results in mild vertebral body height loss. Old mild L4 compression, healed since the previous study. Increased thoracic kyphosis. ABDOMEN: Vasculature: Probable mild celiac stenosis. Severe calcified SMA stenosis. NICOLASA patent. Probable mild left renal artery stenosis. Right renal artery patent. Solid organs: Liver is normal in size and enhancement. Gallbladder is unremarkable. Biliary system is non dilated. Pancreas enhances normally. Spleen is normal in size and enhancement. No adrenal nodules. Both kidneys are normal in size and enhancement, without hydronephrosis. Peritoneum and bowel: No free fluid or air. Bowel loops are normal in caliber and wall thickness. Extensive diverticulosis without evidence of diverticulitis. Nodes and vessels: No retroperitoneal or mesenteric adenopathy by size criteria. Inferior vena cava is normal in morphology. Miscellaneous: No ventral hernias. PELVIS: Genitourinary: Bladder wall thickness is normal. Miscellaneous: No inguinal hernias or adenopathy. No ventral hernias. Bones: No suspicious bony lesions. Old moderate to severe compression fractures of T11 and T12. Interval inferior endplate compression fracture of L2, likely acute or subacute. This results in mild vertebral body height loss. Old mild L4 compression, healed since the previous study. Increased thoracic kyphosis. Remote proximal right femoral ORIF, including femoral neck screws. IMPRESSION: 1. Normal caliber thoracic and abdominal aorta without dissection. 2. Multiple old osteoporotic compressions. 3. A L2 inferior endplate compression is likely acute or subacute. 4. Severe calcified SMA stenosis. At least mild proximal celiac stenosis. Question: Does this patient have any symptomatology suggesting chronic mesenteric ischemia? 5. Coronary artery disease. 6. Multiple small pulmonary nodules as described above. Please refer to the chart below for follow-up recommendations. 7. Diverticulosis. Fleischner Society criteria for SOLID lung nodule followup. Nodule size (mm)Low-risk patientHigh-risk patient<6 (single or multiple)No routine followup.Optional CT at 12 months. 6-8 (single or multiple)CT at 6-12 months, then optional CT at 18-24 mo.CT at 6-12 months, then CT at 18-24 months. >8 (single)CT at 3 months, PET-CT, or biopsy. Same as for low-risk pts. >8 (multiple)CT at 3-6 months, then optional CT at 18-24 mo.CT at 3-6 months, then CT at 18-24 months. Fleischner Society criteria for SUB-SOLID lung nodule followup. Solitary pure ground-glass nodules<6 mm (ground glass or part solid)No followup needed. 6 mm or larger (ground glass)CT at 6-12 months to confirm persistence, then CT every 2 years until 5 years.6 mm or larger (part solid)CT at 3-6 months to confirm persistence, then annual CT until 5 years if unchanged and solid component remains <6 mm. Multiple sub-solid nodules<6 mmCT at 3-6 months, then CT consider at 2 & 4 years for high risk patients. [address] at 3-6 months. Subsequent management based on most suspicious lesions. Recommendations do not apply to lung cancer screening, patients with immunosuppression, or patients with known primary cancer. Dictated by: Ga Magallanes M.D. on 11/06/2020 at 12:29 Approved by: Ga Magallanes M.D. on 11/06/2020 at 12:50
[2020-11-06 11:44] LABS: Alanine Aminotransferase 10 IU/L (<35); Albumin 4.4 g/dL (3.5-5.0); Albumin Globulin Ratio 1.3 (1.0-2.8); Alkaline Phosphatase 97 U/L (38-126); Aspartate Aminotransferase 24 IU/L (14-36); BUN Creatinine Ratio 12.3 (6-22); Bilirubin Total 0.3 mg/dL (0.2-1.3); Blood Urea Nitrogen 7 mg/dL (7-17); Calcium 9.8 mg/dL (8.4-10.2); Carbon Dioxide 27 mmol/L (22-32); Chloride 96 mmol/L (98-107); Creatine Kinase 33 U/L (30-135); Estimated Glomerular Filt Rate > 60.0 mL/min (>60); Globulin 3.4 g/dL (1.7-4.1); Glucose 104 mg/dL (80-110); HEMOLYSIS < 15 (0-50); Potassium 4.2 mmol/L (3.4-5.1); Sodium 129 mmol/L (137-145); Total Protein 7.8 g/dL (6.3-8.2)
[2020-11-06 11:56] LABS: Troponin I < 0.012 ng/mL (0.01-0.034)
== END 2020-11-06 13:33 | disposition home or self-care (01) ==
PROVIDERS: Emergency Provider Emergency Medicine; PCP Internal Medicine
DX: M54.5 Low back pain (principal); I10 Essential (primary) hypertension
CPT/HCPCS: 36415; 71275; 74174; 80053; 82550; 84484; 85025; 93005; 93010; 96374; 99284; J1885; Q9967

== ENCOUNTER 2020-11-26 09:51 | Emergency (ER) | payer MEDICARE, OTHER, SELFPAY ==
[2020-11-26] VITALS (8 sets, daily range): BP systolic 178–211; BP diastolic 84–114; PULSE 77–86; RESP 14; TEMP 36.8; O2SAT 87–99; BMI 21.4
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
[2020-11-26 10:23] LABS: Add Manual Diff / Slide Review NO; Basophils Absolute Auto 100 /uL (0-100); Basophils Percent Auto 1.3 % (0-2); Eosinophils Absolute Auto 100 /uL (0-450); Eosinophils Percent Auto 1.9 % (2-4); Hematocrit 39.4 % (36-46); Hemoglobin 13.6 g/dL (12.0-16.0); Lymphocytes Absolute Auto 600 /uL (1100-4500); Lymphocytes Percent Auto 13.2 % (25-40); Mean Corpuscular HGB Conc 34.5 % (30-36); Mean Corpuscular Hemoglobin 29.8 PG (26-34); Mean Corpuscular Volume 86.3 fL (80-100); Monocytes Absolute Auto 800 /uL (0-900); Monocytes Percent Auto 16.3 % (3-14); Neutrophils Absolute Auto 3200 /uL (1500-7000); Neutrophils Percent Auto 67.3 % (50-75); Platelet Count 254 X10^3/uL (150-400); Red Blood Cell Count 4.57 X10^6/uL (4.0-5.2); White Blood Cell Count 4.8 X10^3/uL (4.5-11.0)
[2020-11-26 10:36] LABS: BUN Creatinine Ratio 17.6 (6-22); Blood Urea Nitrogen 9 mg/dL (7-17); Calcium 9.8 mg/dL (8.4-10.2); Carbon Dioxide 23 mmol/L (22-32); Chloride 96 mmol/L (98-107); Creatine Kinase 29 U/L (30-135); Estimated Glomerular Filt Rate > 60.0 mL/min (>60); Glucose 98 mg/dL (80-110); HEMOLYSIS 24 (0-50); Potassium 4.3 mmol/L (3.4-5.1); Sodium 129 mmol/L (137-145)
[2020-11-26 10:47] LABS: Troponin I < 0.012 ng/mL (0.01-0.034)
[2020-11-26 11:43] LABS: NT-proBNP (BNP-Adult 18+) 272 pg/mL (<450)
== END 2020-11-26 12:17 | disposition home or self-care (01) ==
PROVIDERS: Emergency Provider Emergency Medicine; PCP Internal Medicine
DX: M25.551 Pain in right hip (principal); R60.0 Localized edema
CPT/HCPCS: 36415; 80048; 82550; 83880; 84484; 85025; 99283

== ENCOUNTER 2020-12-20 09:38 | Emergency (ER) | payer MEDICARE, OTHER, SELFPAY ==
[2020-12-20 09:53] VITALS: BP 166/85; PULSE 85; RESP 16; TEMP 36.8; O2SAT 99; BMI 19.5
[2020-12-20 10:22] VITALS: PULSE 75; O2SAT 99
[2020-12-20 10:30] VITALS: BP 168/81; PULSE 81; O2SAT 99
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
[2020-12-20 11:03] VITALS: O2SAT 87
[2020-12-20 11:04] VITALS: BP 179/92; PULSE 82; O2SAT 99
[2020-12-20] MEDS: IBUPROFEN 400 MG TABLET PO (12:05)
== END 2020-12-20 12:10 | disposition home or self-care (01) ==
PROVIDERS: Emergency Provider Emergency Medicine; PCP Internal Medicine
DX: S30.0XXA Contusion of lower back and pelvis, initial encounter (principal); W22.8XXA Striking against or struck by other objects, initial encounter
CPT/HCPCS: 73502; 99283

== ENCOUNTER 2021-03-19 11:49 | Emergency (ER) | payer MEDICARE, OTHER, SELFPAY ==
[2021-03-19 11:55] VITALS: BP 196/94; PULSE 88; RESP 14; TEMP 36.9; O2SAT 98; BMI 20.2
[2021-03-19] MEDS: SODIUM CHLORIDE 0.9% 1,000 ML 150 ML IV (12:30)
[2021-03-19 12:48] LABS: Add Manual Diff / Slide Review NO; Basophils Absolute Auto 100 /uL (0-100); Basophils Percent Auto 3.3 % (0-2); Eosinophils Absolute Auto 0 /uL (0-450); Eosinophils Percent Auto 1.3 % (2-4); Hematocrit 39.8 % (36-46); Hemoglobin 13.2 g/dL (12.0-16.0); Lymphocytes Absolute Auto 500 /uL (1100-4500); Lymphocytes Percent Auto 14.9 % (25-40); Mean Corpuscular Volume 87.9 fL (80-100); Monocytes Absolute Auto 700 /uL (0-900); Monocytes Percent Auto 19.3 % (3-14); Neutrophils Absolute Auto 2200 /uL (1500-7000); Neutrophils Percent Auto 61.2 % (50-75); Platelet Count 252 X10^3/uL (150-400); Red Blood Cell Count 4.53 X10^6/uL (4.0-5.2); Red Cell Distribution Width 14.1 % (11.6-14.8); White Blood Cell Count 3.6 X10^3/uL (4.5-11.0)
[2021-03-19 12:56] LABS: Alanine Aminotransferase 11 IU/L (<35); Albumin 4.2 g/dL (3.5-5.0); Albumin Globulin Ratio 1.3 (1.0-2.8); Alkaline Phosphatase 83 U/L (38-126); Aspartate Aminotransferase 25 IU/L (14-36); BUN Creatinine Ratio 15.1 (6-22); Bilirubin Total 0.5 mg/dL (0.2-1.3); Blood Urea Nitrogen 8 mg/dL (7-17); Calcium 9.6 mg/dL (8.4-10.2); Carbon Dioxide 25 mmol/L (22-32); Chloride 97 mmol/L (98-107); Estimated Glomerular Filt Rate > 60.0 mL/min (>60); Globulin 3.3 g/dL (1.7-4.1); Glucose 98 mg/dL (80-110); HEMOLYSIS < 15 (0-50); Potassium 4.2 mmol/L (3.4-5.1); Sodium 128 mmol/L (137-145); Total Protein 7.5 g/dL (6.3-8.2)
--- NOTE | 2021-03-19 12:56 | ED.DIZZY ---
HPI - Dizziness General Chief Complaint: Dizziness Stated Complaint: grief/dizzy/not eating Time Seen by Provider: 03/19/21 12:55 Source: patient Mode of arrival: Wheelchair Limitations: no limitations History of Present Illness HPI Narrative: This an 85-year-old female who comes in with complaint of feeling a little dizzy. She has also been grieving the of her sister issues quite close to. Patient's isolated her daughter, grandson and have all . She has some extended family members but does not have a lot of contact with them. She states that her [id number] about a week ago. Patient states since then she has been having insomnia with difficulty sleeping. She has been drinking a lot a coffee typically to 4-5 cups a day sometimes even in the middle the night when she can not sleep she has been tearful and grieving. Today her complaint is that she is feeling dizzy she states her head just feels dizzy. She does not have vertigo or room spinning. She does not feel like she is going to pass out. She does have chronic anxiety about potentially falling because she has prior hip replacement that has had some complications. She has told her orthopedic service that she does not want to have any surgical intervention although it has been offered and she gets anxious about potentially falling. She has noted she has been a little bit dizzy over the last couple days. She also notes that she has chronically had dizziness on and off over the years. It is difficult to elicit more specific example of her symptoms. She denies headaches. No chest pain, no shortness of breath. No nausea, no vomiting. No cold cough or congestion. No swelling in her extremities. She has had decreased appetite. She has not noticed any urinary changes. She has had a couple of glasses of wine when with her neighbor most days. She has been drinking water otherwise as well. She states she has been taking her medications daily. She has already scheduled follow-up appointment with Dr. Gomez for this coming Monday. She lives independently and still drives. Related Data Home Medications Medication Instructions Recorded Confirmed calcium carbonate 500 mg calcium 500 mg PO DAILY #0 02/24/11 02/22/21 (1,250 mg) tablet (Calcium 500) multivitamin 1 tab PO DAILY #0 02/24/11 02/22/21 acetaminophen 325 mg tablet 500 mg PO TID PRN 06/09/20 02/22/21 Previous Rx's Medication Instructions Recorded dicyclomine 20 mg tablet 20 mg PO QID PRN #90 tab 08/14/18 Disabled Parking #1 each 11/02/18 psyllium seed (sugar) oral powder 1 tbsp PO DAILY #1254 gram 07/01/19 (Metamucil (sugar)) lorazepam 0.5 mg tablet (Ativan) 0.5 - 1 mg PO Q6H PRN #20 tab 06/29/20 omeprazole 40 mg capsule,delayed 40 mg PO DAILY #30 cap 07/06/20 release lisinopril 40 mg tablet 40 mg PO DAILY #90 tab 11/09/20 chlordiazepoxide-clidinium 5 1 cap PO DAILY #90 cap 01/29/21 mg-2.5 mg capsule fluticasone propionate 50 2 spray NASAL BEDTIME PRN #16 g 02/12/21 mcg/actuation nasal spray,suspension hyoscyamine sulfate 0.125 mg See Rx Instructions .ROUTE 03/10/21 sublingual tablet .COMPLEX #45 each Allergies Allergy/AdvReac Type Severity Reaction Status Date / Time lidocaine AdvReac Severe RASH, Verified 03/19/21 12:03 BURNED HER levofloxacin [From LEVAQUIN] AdvReac Unknown dizziness, Verified 03/19/21 12:03 not sure if related or not...08/30/16 Review of Systems Review of Systems ROS Unobtainable: All systems reviewed & are unremarkable except as noted in HPI and below Patient History Medical History (Updated 03/19/21 @ 13:33 by Nasreen Metz DO) Abdominal pain Anxiety (09/16/13) Diverticulosis of large intestine Essential hypertension (02/24/11) History of adenomatous polyp of colon Hypertension Irritable bowel syndrome with diarrhea (09/13/16) Irritable bowel syndrome without diarrhea (05/28/15) Low back pain Lung nodule seen on imaging study (10/03/12) Mixed hyperlipidemia (02/24/11) Osteoporosis (02/24/11) Respiratory infection Seasonal allergies Surgical History H/O colonoscopy History of appendectomy History of foot surgery Hx of appendectomy Social History marital status: number of children: 1 household members: none lives independently: Yes caregiver/support person: Yes (Step daughter) housing: apartment pets and animals: No education level: high school occupational status: other 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 hortencia/congregational: Yazdanism leisure activities: music, reading and other Smoking Status: Never smoker Tobacco: How many years used: 0 alcohol intake: current substance use type: does not use Smoking Status: Never smoker alcohol intake frequency: a few times a week Alcohol type: wine Substance Use Type: does not use Exam Narrative Exam Narrative: GEN: Thin elderly female, alert and oriented x 3, patient appears to be in mild distress. Patient does become tearful intermittently through examination. HEENT: Atraumatic, pupils are equal round reactive to light, extraocular movements are intact, nares are clear, throat is clear without any exudates, erythema, tonsillar enlargement or uvular deviation, no facial droop. HEART: Regular rate and rhythm without murmur, clicks, rubs. Pulses are equal in upper and lower extremities LUNGS:Lungs clear to auscultation, no wheezes, rales, crackles, chest moves symmetrically ABD:bowel sounds normal, soft, non-tender, no guarding, rebound, rigidity, no masses noted, no hepatosplenomegaly :No CVA tenderness MSCL: Non-tender, full range of motion, normal gait NEURO:CN 2-12 intact, sensation normal. SKIN: Rash or other skin changes noted. Initial Vital Signs Initial Vital Signs: Vital Signs Temperature 98.4 F 03/19/21 11:55 Pulse Rate 88 03/19/21 11:55 Respiratory Rate 14 03/19/21 11:55 Blood Pressure 196/94 H 03/19/21 11:55 Pulse Oximetry 98 03/19/21 11:55 Scores GCS [place] coma scale eye opening: Spontaneous [place] coma scale verbal response: Orientated [place] coma scale motor response: Obey commands [place] coma scale total score: 15 Course Orders Ordered: ED Orders 03/19/21 12:08 EKG-12 Lead Stat 03/19/21 12:40 Complete Blood Count AUTO DIFF Stat Comprehensive Metabolic Panel Stat Troponin I Stat 03/19/21 13:27 Consult to DIRECTOR OF SLOT OPERATIONS - Real Estate Account Executive Stat XR chest 1V Stat 03/19/21 13:52 Lipase Stat Discontinued Medications Sodium Chloride (Normal Saline 0.9%) 1,000 mls @ 150 mls/hr IV CONT YUSUF Last Infusion: 03/19/21 14:24 Dose: 0 mls/hr Documented by: CTR.HANDER Infusion: 03/19/21 14:24 Dose: 0 mls/hr Documented by: CTRCampbellHANDER Admin: 03/19/21 12:30 Dose: 150 mls/hr Documented by: CTR.HANDER Vital Signs Vital signs: Vital Signs - 8 hr 03/19/21 11:55 03/19/21 13:36 03/19/21 14:22 Temperature 98.4 F Pulse Rate 88 101 H 90 Respiratory Rate 14 20 Blood Pressure 196/94 H 196/94 H Pulse Oximetry 98 99 98 03/19/21 14:23 Temperature Pulse Rate 90 Respiratory Rate 20 Blood Pressure 181/87 H Pulse Oximetry 99 MDM - Dizziness Lab Data Result diagrams: 03/19/21 12:40 03/19/21 12:40 Labs: Lab Results 03/19/21 03/19/21 03/19/21 Range/Units 12:40 12:40 13:52 WBC 3.6 L (4.5-11.0) X10^3/uL RBC 4.53 (4.0-5.2) X10^6/uL Hgb 13.2 (12.0-16.0) g/dL Hct 39.8 (36-46) % MCV 87.9 (80-100) fL MCH 29.0 (26-34) PG MCHC 33.0 (30-36) % RDW 14.1 (11.6-14.8) % Plt Count 252 (150-400) X10^3/uL Neut % (Auto) 61.2 (50-75) % Lymph % (Auto) 14.9 L (25-40) % Mcclain % (Auto) 19.3 H (3-14) % Eos % (Auto) 1.3 L (2-4) % Baso % (Auto) 3.3 H (0-2) % Neut # (Auto) 2200 (5492-3803) /uL Lymph # (Auto) 500 L (8957-5306) /uL Mcclain # (Auto) 700 (0-900) /uL Eos # (Auto) 0 (0-450) /uL Baso # (Auto) 100 (0-100) /uL Sodium 128 L (137-145) mmol/L Potassium 4.2 (3.4-5.1) mmol/L Chloride 97 L (98-107) mmol/L Carbon Dioxide 25 (22-32) mmol/L BUN 8 (7-17) mg/dL Creatinine 0.53 (0.52-1.04) mg/dL Estimated GFR > 60.0 (>60) mL/min BUN/Creatinine Ratio 15.1 (6-22) Glucose 98 (80-110) mg/dL Calcium 9.6 (8.4-10.2) mg/dL Total Bilirubin 0.5 (0.2-1.3) mg/dL AST 25 (14-36) IU/L ALT 11 (<35) IU/L Alkaline Phosphatase 83 (38-126) U/L Troponin I < 0.012 (0.01-0.034) ng/mL Total Protein 7.5 (6.3-8.2) g/dL Albumin 4.2 (3.5-5.0) g/dL Globulin 3.3 (1.7-4.1) g/dL Albumin/Globulin Ratio 1.3 (1.0-2.8) Lipase 145 (23-300) U/L Imaging Data Chest x-ray: Radiologist's Impression: Mahsa Storey 85 F [address] [id number] ReportSigned Patient: Mahsa Storey [facility]#: [id number]: 1935cct:[id number]/Sex: 85 / FDate of Service: 03/19/21Loc: EDAccession Number: [id number] Procedure: XR chest 1V Ordering Provider: Nasreen Metz D.O. PROCEDURE: XR CHEST 1V INDICATIONS: dizziness TECHNIQUE: One view of the chest was acquired. COMPARISON: [facility], , XR CHEST 1V, 09/20/2019, 17:41. FINDINGS: Surgical changes and devices: None. Lungs and pleura: Lungs are clear. No pleural effusions or pneumothorax. Mediastinum: The cardiac silhouette is normal in size. The thoracic aorta is tortuous with moderate aortic atherosclerotic calcifications demonstrated. Bones and chest wall: No suspicious bony lesions. Overlying soft tissues appear unremarkable. There is generalized osteopenia. IMPRESSION: No acute cardiopulmonary abnormality. Dictated by: Cristiano Mccauley M.D. on 03/19/2021 at 13:40 Approved by: Cristiano Mccauley M.D. on 03/19/2021 at 13:41 ECG Data Attestation: I personally reviewed and interpreted this ECG as follows: Prior ECG tracings: available for review Interpretation: Sinus rhythm rate of 78 MI 166 QRS is 78, QTC of [address] changes noted. Patient has prior from 11/06/2020 which appears similar. MDM Narrative Medical decision making narrative: 85-year-old female comes emergency department with complaint of dizziness which has been intermittent. And complicated by recent grief over the loss of her [id number] she was quite close to. Patient does have alcohol occasionally as well as had rapidly increased her caffeine intake and this may be adding to her symptoms. She has stable gait here in the department with no acute neurologic changes. Labs are reassuring. Patient denied discussed and she feels comfortable returning home she has follow-up on Monday with her primary care. Discharge Plan Departure Patient Disposition: Home Clinical Impression: Dizziness, Grief reaction Instructions: DI for Dizziness-Nonvertigo Activity Restrictions/Additional Instructions: Follow-up with your physician and your appointment on Monday. Continue home medications as prescribed. Would recommend possibly decreasing your caffeine consumption slightly and only having one alcoholic drink daily as this could contribute to your dizzy sensation. Please return for fevers, severe headaches, new vision, numbness, tingling or weakness difficulty with speech, lightheadedness or passing out, new chest pain or shortness of breath or other new or concerning symptoms. Prescriptions: No Action multivitamin Tablet 1 tab PO DAILY Qty: 0 RF: 0 calcium carbonate [Calcium 500] 500 mg calcium (1,250 mg) Tablet 500 mg PO DAILY Qty: 0 RF: 0 omeprazole 40 mg capsule,delayed release(DR/EC) 40 mg PO DAILY Qty: 30 RF: 5 lisinopril 40 mg tablet 40 mg PO DAILY Qty: 90 RF: 1 chlordiazepoxide-clidinium 5-2.5 mg capsule 1 cap PO DAILY Qty: 90 RF: 3 fluticasone propionate 50 mcg/actuation spray,suspension 2 spray NASAL BEDTIME PRN (Reason: allergy symptoms) Qty: 16 RF: 2 hyoscyamine sulfate 0.125 mg tablet, sublingual See Rx Instructions .ROUTE .COMPLEX Qty: 45 RF: 11 (DME) Disabled Parking Qty: 1 RF: 0 dicyclomine 20 mg tablet 20 mg PO QID PRN (Reason: stomach cramps) Qty: 90 RF: 2 Metamucil (sugar) Powder 1 tbsp PO DAILY Qty: 1254 RF: 0 lorazepam [Ativan] 0.5 mg tablet 0.5 - 1 mg PO Q6H PRN (Reason: Anxiety) Qty: 20 RF: 0 acetaminophen 325 mg tablet 500 mg PO TID PRN (Reason: Pain (Scale Score 1-3)) RF: 0 Referrals: Brain Gomez MD [Primary Care Provider] -
[2021-03-19 13:07] LABS: Troponin I < 0.012 ng/mL (0.01-0.034)
--- NOTE | 2021-03-19 13:24 | PC.NURSE ---
Pt provided with PO intake per provider approval. Once settled into ED room, pt states she feels safe now and has more of an appetite than she has recently. Eating and drinking well, in addition to IVF.
--- NOTE | 2021-03-19 13:27 | DI.RAD.S_ITS ---
PROCEDURE: XR CHEST 1V INDICATIONS: dizziness TECHNIQUE: One view of the chest was acquired. COMPARISON: [facility], CR, XR CHEST 1V, 09/20/2019, 17:41. FINDINGS: Surgical changes and devices: None. Lungs and pleura: Lungs are clear. No pleural effusions or pneumothorax. Mediastinum: The cardiac silhouette is normal in size. The thoracic aorta is tortuous with moderate aortic atherosclerotic calcifications demonstrated. Bones and chest wall: No suspicious bony lesions. Overlying soft tissues appear unremarkable. There is generalized osteopenia. IMPRESSION: No acute cardiopulmonary abnormality. Dictated by: Cristiano Mccauley M.D. on 03/19/2021 at 13:40 Approved by: Cristiano Mccauley M.D. on 03/19/2021 at 13:41
[2021-03-19 13:36] VITALS: BP 196/94; PULSE 101; RESP 20; O2SAT 99
[2021-03-19 14:02] LABS: Lipase 145 U/L (23-300)
[2021-03-19 14:22] VITALS: PULSE 90; O2SAT 98
[2021-03-19 14:23] VITALS: BP 181/87; PULSE 90; RESP 20; O2SAT 99
--- NOTE | 2021-03-19 14:28 | CM.SWNOTE ---
HEAD PAPER TESTER Note HEAD PAPER TESTER receives consult and enters room to meet with patient. Patient is 85 y/o female who presents to ED with concerns for weakness and dizziness. Patient endorses she lost her daughter in law a week and a half ago and has had a hard time cooking for herself and eating regular meals. Patient endorses she lives on the [facility] and is a member of the [facility] [place] and receives daily lunches from the [employer]. Patient endorses she is connected with senior services. Patient endorses some of her family members but she has support from her neighbors and family members. Patient endorses she resides alone in a [facility] and can reach out to her neighbors if needed, she endorses her step daughter visits with her daily and drives her places. 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 Patient endorses her brother gets her groceries as needed, at least weekly. Patient endorses she uses a walker when walking outside as needed. Patient endorses she recently had a sound recording technician that would clean the house weekly but she is no longer available and she is seeking a new sound recording technician. HEAD PAPER TESTER searches websites for housekeepers for hire and provides information to patient. HEAD PAPER TESTER provides patient with senior resource guide. Patient has f/u appt with PCP Dr. Gomez on Monday03/22/21 and an another appt scheduled for 04/16/21. Patient was encouraged to discuss the recent loss of her daughter in law. Patient endorses that she feels safe at home and that she has family supports but prefers not to be alone. Patient endorses she visits with family regularly. Plan: Patient to d/c to home when medically clear, patient to f/u with PCP on Thursday 03/22 and to seek available housekeeping/caregiver services. KRYS Jensen
== END 2021-03-19 14:55 | disposition home or self-care (01) ==
PROVIDERS: Emergency Provider Emergency Medicine; PCP Internal Medicine
DX: R42 Dizziness and giddiness (principal); F43.21 Adjustment disorder with depressed mood
CPT/HCPCS: 36415; 71045; 80053; 83690; 84484; 85025; 93005; 93010; 96360; 96361; 99284

== ENCOUNTER 2021-04-03 09:59 | Emergency (ER) | payer MEDICARE, OTHER, SELFPAY ==
[2021-04-03 10:00] VITALS: BP 172/98; PULSE 99; RESP 18; TEMP 36.9; O2SAT 99
--- NOTE | 2021-04-03 10:17 | ED_ITS ---
HPI - Extremity Injury (Lower) General Chief Complaint: Extremity Injury, Lower Stated Complaint: Red swollen toe Time Seen by Provider: 04/03/21 10:05 Source: patient Mode of arrival: Ambulatory Limitations: no limitations History of Present Illness HPI Narrative: 86-year-old female who is here for evaluation of approximately 1 week of the right great toe discomfort. She states that it started when the inside of her right big toe was rubbing against her shoe. She stated that she then put a cotton ball of the area and that did improve her symptoms somewhat but now it has returned. Other than placing a cotton ball over the area she has not tried anything for the symptoms prior to arrival. Related Data Home Medications Medication Instructions Recorded Confirmed calcium carbonate 500 mg calcium 500 mg PO DAILY #0 02/24/11 03/22/21 (1,250 mg) tablet (Calcium 500) multivitamin 1 tab PO DAILY #0 02/24/11 03/22/21 acetaminophen 325 mg tablet 500 mg PO TID PRN 06/09/20 03/22/21 Previous Rx's Medication Instructions Recorded dicyclomine 20 mg tablet 20 mg PO QID PRN #90 tab 08/14/18 Disabled Parking #1 each 11/02/18 psyllium seed (sugar) oral powder 1 tbsp PO DAILY #1254 gram 07/01/19 (Metamucil (sugar)) omeprazole 40 mg capsule,delayed 40 mg PO DAILY #30 cap 07/06/20 release lisinopril 40 mg tablet 40 mg PO DAILY #90 tab 11/09/20 chlordiazepoxide-clidinium 5 1 cap PO DAILY #90 cap 01/29/21 mg-2.5 mg capsule fluticasone propionate 50 2 spray NASAL BEDTIME PRN #16 g 02/12/21 mcg/actuation nasal spray,suspension hyoscyamine sulfate 0.125 mg See Rx Instructions .ROUTE 03/10/21 sublingual tablet .COMPLEX #45 each lorazepam 0.5 mg tablet (Ativan) 0.5 - 1 mg PO Q6H PRN #20 tab 03/22/21 Allergies Allergy/AdvReac Type Severity Reaction Status Date / Time lidocaine AdvReac Severe RASH, Verified 03/22/21 15:43 BURNED HER levofloxacin [From LEVAQUIN] AdvReac Unknown dizziness, Verified 03/22/21 15:43 not sure if related or not...2/7/17 Review of Systems Musculoskeletal Comments: Right big toe pain Integumentary/Breasts Comments: No redness or swelling Neurologic Neurologic: Reports system reviewed and no additional complaints, except as documented Hematologic/Lymphatic On Anticoagulants: No Patient History Medical History Abdominal pain Anxiety (09/16/13) Diverticulosis of large intestine Essential hypertension (02/24/11) History of adenomatous polyp of colon Hypertension Irritable bowel syndrome with diarrhea (09/13/16) Irritable bowel syndrome without diarrhea (05/28/15) Low back pain Lung nodule seen on imaging study (10/03/12) Mixed hyperlipidemia (02/24/11) Osteoporosis (02/24/11) Surgical History H/O colonoscopy History of appendectomy History of foot surgery Hx of appendectomy Social History marital status: number of children: 1 household members: none lives independently: Yes caregiver/support person: Yes (Step daughter) housing: apartment pets and animals: No education level: high school occupational status: other 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 hortencia/zoroastrianism: Presybeterian leisure activities: music, reading and other Smoking Status: Never smoker Tobacco: How many years used: 0 alcohol intake: current substance use type: does not use Smoking Status: Never smoker alcohol intake frequency: a few times a week Alcohol type: wine Substance Use Type: does not use Exam Initial Vital Signs Initial Vital Signs: Vital Signs Temperature 98.4 F 04/03/21 10:00 Pulse Rate 99 H 04/03/21 10:00 Respiratory Rate 18 04/03/21 10:00 Blood Pressure 172/98 H 04/03/21 10:00 Pulse Oximetry 99 04/03/21 10:00 Const General: cooperative HENMT Head: normal to inspection and normocephalic Cardio Pulses: dorsalis pedis present on the right Skin General: no rashes or lesions noted Extrem Other: The right great toe appears unremarkable. There are no breaks in the skin. No redness. She is tender over the medial aspect of the toenail. The toenail appears intact Course Vital Signs Vital signs: Vital Signs - 8 hr 04/03/21 10:00 Temperature 98.4 F Pulse Rate 99 H Respiratory Rate 18 Blood Pressure 172/98 H Pulse Oximetry 99 MDM - Extremity Injury (Lower) MDM Narrative Medical decision making narrative: Patient denies any trauma. I do suspect that her symptoms are related to her toe pushing up against the inside of her shoe. I have low suspicion for ingrown toenail. Low suspicion for fracture. Low suspicion for cellulitis. Low suspicion for gout. I feel we can hold on further workup for now. I did discuss the use of pads that she can purchase [id number] to use over the area. She also wanted to try soaking it in Epson salts. Patient expressed understanding and agreement with this plan. Discharge Plan Departure Patient Disposition: Home Clinical Impression: Pain in toe of right foot Instructions: DI for Foot Pain Activity Restrictions/Additional Instructions: Your physical exam today is not consistent with any infection. I also have a very low suspicion that this is an ingrown toenail. I suspect it is irritated from rubbing against your issue. I recommend using the pads like we discussed. If this does not improve your symptoms you may need to get into see a flosser. Contact your primary doctor for follow-up Prescriptions: No Action multivitamin Tablet 1 tab PO DAILY Qty: 0 RF: 0 calcium carbonate [Calcium 500] 500 mg calcium (1,250 mg) Tablet 500 mg PO DAILY Qty: 0 RF: 0 omeprazole 40 mg capsule,delayed release(DR/EC) 40 mg PO DAILY Qty: 30 RF: 5 lisinopril 40 mg tablet 40 mg PO DAILY Qty: 90 RF: 1 chlordiazepoxide-clidinium 5-2.5 mg capsule 1 cap PO DAILY Qty: 90 RF: 3 fluticasone propionate 50 mcg/actuation spray,suspension 2 spray NASAL BEDTIME PRN (Reason: allergy symptoms) Qty: 16 RF: 2 hyoscyamine sulfate 0.125 mg tablet, sublingual See Rx Instructions .ROUTE .COMPLEX Qty: 45 RF: 11 (DME) Disabled Parking Qty: 1 RF: 0 dicyclomine 20 mg tablet 20 mg PO QID PRN (Reason: stomach cramps) Qty: 90 RF: 2 Metamucil (sugar) Powder 1 tbsp PO DAILY Qty: 1254 RF: 0 lorazepam [Ativan] 0.5 mg tablet 0.5 - 1 mg PO Q6H PRN (Reason: Anxiety) Qty: 20 RF: 0 acetaminophen 325 mg tablet 500 mg PO TID PRN (Reason: Pain (Scale Score 1-3)) RF: 0 Referrals: Brain Gomez MD [Primary Care Provider] -
== END 2021-04-03 10:30 | disposition home or self-care (01) ==
PROVIDERS: Emergency Provider Emergency Medicine; PCP Internal Medicine
DX: M79.674 Pain in right toe(s) (principal)
CPT/HCPCS: 99281

== ENCOUNTER 2021-04-15 21:02 | Emergency (ER) | payer MEDICARE, OTHER, SELFPAY ==
[2021-04-15 20:58] VITALS: BP 196/98; PULSE 87; RESP 18; TEMP 36.7; O2SAT 99; BMI 21.1
[2021-04-15] MEDS: SODIUM CHLORIDE 0.9% 1,000 ML 125 ML IV (22:27)
[2021-04-15 22:46] VITALS: BP 196/95; PULSE 74; O2SAT 100
[2021-04-15 22:48] LABS: Add Manual Diff / Slide Review NO; Basophils Absolute Auto 100 /uL (0-100); Basophils Percent Auto 3.1 % (0-2); Eosinophils Absolute Auto 100 /uL (0-450); Hematocrit 38.7 % (36-46); Hemoglobin 13.1 g/dL (12.0-16.0); Lymphocytes Absolute Auto 700 /uL (1100-4500); Mean Corpuscular HGB Conc 33.8 % (30-36); Mean Corpuscular Hemoglobin 29.3 PG (26-34); Mean Corpuscular Volume 86.5 fL (80-100); Monocytes Absolute Auto 700 /uL (0-900); Monocytes Percent Auto 19.8 % (3-14); Neutrophils Absolute Auto 2000 /uL (1500-7000); Neutrophils Percent Auto 54.1 % (50-75); Platelet Count 259 X10^3/uL (150-400); Red Blood Cell Count 4.48 X10^6/uL (4.0-5.2); White Blood Cell Count 3.7 X10^3/uL (4.5-11.0)
[2021-04-15 22:52] LABS: Alanine Aminotransferase 10 IU/L (<35); Albumin 4.2 g/dL (3.5-5.0); Albumin Globulin Ratio 1.3 (1.0-2.8); Alkaline Phosphatase 66 U/L (38-126); Aspartate Aminotransferase 22 IU/L (14-36); Bilirubin Total 0.3 mg/dL (0.2-1.3); Blood Urea Nitrogen 7 mg/dL (7-17); Calcium 9.5 mg/dL (8.4-10.2); Carbon Dioxide 28 mmol/L (22-32); Chloride 97 mmol/L (98-107); Creatine Kinase 28 U/L (30-135); Estimated Glomerular Filt Rate > 60.0 mL/min (>60); Globulin 3.2 g/dL (1.7-4.1); Glucose 94 mg/dL (80-110); HEMOLYSIS < 15 (0-50); Potassium 4.4 mmol/L (3.4-5.1); Sodium 131 mmol/L (137-145); Total Protein 7.4 g/dL (6.3-8.2)
[2021-04-15 23:00] VITALS: BP 178/87; PULSE 71; O2SAT 100
[2021-04-15 23:04] LABS: Troponin I < 0.012 ng/mL (0.01-0.034)
[2021-04-15 23:30] VITALS: BP 146/73; PULSE 73; O2SAT 98
--- NOTE | 2021-04-15 23:42 | DI.CT.S_ITS ---
PROCEDURE: CT ABDOMEN PELVIS W CON INDICATIONS: severe Right sided abdominal pain TECHNIQUE: After the administration of intravenous contrast, axial sections acquired from the lung bases to the pubic symphysis. Coronal and sagittal reformats were performed. For radiation dose reduction, the following was used: automated exposure control, adjustment of mA and/or kV according to patient size. COMPARISON: [facility], CT, CT ANGIO CHEST ABDOMEN PELVIS, 11/06/2020, 11:57. [facility], CT, CT ABDOMEN PELVIS W CON, 11/22/2019, 17:21. [facility], CT, CT ABDOMEN PELVIS W CON, 11/01/2018, 9:03. FINDINGS: Image quality: Excellent. Lung bases: Unremarkable. Heart: Coronary artery atherosclerotic calcifications are present. ABDOMEN: Liver: Unremarkable. Gallbladder: Unremarkable. Biliary ducts: Unremarkable. Pancreas: Unremarkable. Spleen: Unremarkable. Adrenal Glands: Unremarkable. Kidneys and Ureters: Multifocal chronic renal cortical scarring is seen in the right kidney. There is no hydronephrosis. Stomach and Bowel: There is extensive colonic diverticulosis without definite acute diverticulitis. No signs bowel obstruction. Multiple small bowel loops are seen extending into pelvis. Peritoneum: No abnormal intraperitoneal fluid. No free air. Ventral Wall: No hernias. Abdominal Nodes: No retroperitoneal or mesenteric adenopathy by size criteria. Vessels: Aorta and inferior vena cava are normal in size. Moderate aortic atherosclerotic calcifications. PELVIS: Pelvic Organs: A calcified degenerated uterine fibroid is again present. Bladder: Unremarkable. Pelvic Nodes: No enlarged lymph nodes. Miscellaneous: No hernias are seen. Bones: Postsurgical changes are seen in the right proximal femur with associated metallic streak artifact. Stable chronic compression deformities at the T11 and T12 vertebrae. The previously seen L4 compression fracture appears less prominent without significant loss of vertebral body height. IMPRESSION: 1. No definite acute abnormality in the abdomen or pelvis. 2. Extensive colonic diverticulosis without signs acute diverticulitis. 3. Unchanged remote prior vertebral compression fractures. Dictated by: Cristiano Mccauley M.D. on 04/16/2021 at 0:11 Approved by: Cristiano Mccauley M.D. on 04/16/2021 at 0:22
[2021-04-16 00:02] VITALS: PULSE 94; O2SAT 96
[2021-04-16 00:04] VITALS: BP 180/87; PULSE 87; O2SAT 98
[2021-04-16 00:30] VITALS: BP 151/74; PULSE 84; O2SAT 96
[2021-04-16 01:00] VITALS: BP 143/75; PULSE 88; O2SAT 95
[2021-04-16] MEDS: ACETAMINOPHEN 325 MG TABLET 650 MG PO (01:50)
--- NOTE | 2021-04-16 03:07 | ED.ABDPAIN ---
HPI - Abdominal Pain General Chief Complaint: Abdominal Pain Stated Complaint: RUQ pain Time Seen by Provider: 04/15/21 22:00 Source: patient and EMS Mode of arrival: EMS Limitations: no limitations History of Present Illness HPI narrative: 86-year-old female nonsmoker with history of hypertension, hyperlipidemia, IBS presents with a chief complaint of right-sided abdominal pain over the course of the day. She states that seems to be worse when she stands and improves with rest but otherwise denies any obvious provocation or palliation. She denies any nausea, vomiting or diarrhea. She denies any fever or chills. She denies any radiation of the pain. She states she has had diverticulitis in the past reminds her of that. She has had no urinary complaints such as dysuria, frequency or urgency Related Data Home Medications Medication Instructions Recorded Confirmed calcium carbonate 500 mg calcium 500 mg PO DAILY #0 02/24/11 03/22/21 (1,250 mg) tablet (Calcium 500) multivitamin 1 tab PO DAILY #0 02/24/11 03/22/21 acetaminophen 325 mg tablet 500 mg PO TID PRN 06/09/20 03/22/21 Previous Rx's Medication Instructions Recorded dicyclomine 20 mg tablet 20 mg PO QID PRN #90 tab 08/14/18 Disabled Parking #1 each 11/02/18 psyllium seed (sugar) oral powder 1 tbsp PO DAILY #1254 gram 07/01/19 (Metamucil (sugar)) omeprazole 40 mg capsule,delayed 40 mg PO DAILY #30 cap 07/06/20 release lisinopril 40 mg tablet 40 mg PO DAILY #90 tab 11/09/20 chlordiazepoxide-clidinium 5 1 cap PO DAILY #90 cap 01/29/21 mg-2.5 mg capsule fluticasone propionate 50 2 spray NASAL BEDTIME PRN #16 g 02/12/21 mcg/actuation nasal spray,suspension hyoscyamine sulfate 0.125 mg See Rx Instructions .ROUTE 03/10/21 sublingual tablet .COMPLEX #45 each lorazepam 0.5 mg tablet (Ativan) 0.5 - 1 mg PO Q6H PRN #20 tab 03/22/21 Allergies Allergy/AdvReac Type Severity Reaction Status Date / Time lidocaine AdvReac Severe RASH, Verified 03/22/21 15:43 BURNED HER levofloxacin [From LEVAQUIN] AdvReac Unknown dizziness, Verified 03/22/21 15:43 not sure if related or not...08/30/16 Review of Systems Review of Systems Narrative: GENERAL: Denies chills, fatigue, malaise, fever, sweats. HEENT: Denies sinus pain, ear pain, sore throat, difficulty swallowing, dizziness. RESPIRATORY: Denies dyspnea, cough, wheezing, hemoptysis, sputum. CARDIOVASCULAR: Denies chest pain, palpitations, orthopnea, edema, GASTROINTESTINAL: see HPI : Denies dysuria, frequency, incontinence, hematuria, urinary retention. MUSCULOSKELETAL: denies weakness, joint pain, or bony pain SKIN: Denies rash, skin lesions, or other NEUROLOGIC: Denies weakness, headache, numbness, change in speech, confusion, seizures, incoordination. PSYCHIATRIC: No concerning psychosocial issues. 12 point review of systems is negative except for those stated above Patient History Medical History Abdominal pain Anxiety (09/16/13) Diverticulosis of large intestine Essential hypertension (02/24/11) History of adenomatous polyp of colon Hypertension Irritable bowel syndrome with diarrhea (09/13/16) Irritable bowel syndrome without diarrhea (05/28/15) Low back pain Lung nodule seen on imaging study (10/03/12) Mixed hyperlipidemia (02/24/11) Osteoporosis (02/24/11) Surgical History H/O colonoscopy History of appendectomy History of foot surgery Hx of appendectomy Social History marital status: number of children: 1 household members: none lives independently: Yes caregiver/support person: Yes (Step daughter) housing: apartment pets and animals: No education level: high school occupational status: other 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 hortencia/christianity: [employer] leisure activities: music, reading and other Smoking Status: Never smoker Tobacco: How many years used: 0 alcohol intake: current substance use type: does not use Smoking Status: Never smoker alcohol intake frequency: a few times a week Alcohol type: wine Substance Use Type: does not use Exam Narrative Exam Narrative: GENERAL: [86] year old patient appears stated age. Well-developed patient, in mild distress. HEAD: Atraumatic. Normocephalic. EYES: Pupils equal round and reactive. Extraocular motions intact. No scleral icterus. No injection or drainage. ENT: Nose without bleeding, purulent drainage. Throat without erythema, tonsillar hypertrophy or exudate. Airway patent. NECK: Trachea midline. Non tender CARDIOVASCULAR: Regular rate and rhythm without murmurs, gallops, or rubs. RESPIRATORY: Clear to auscultation. Breath sounds equal bilaterally. No wheezes, rales, or rhonchi. GASTROINTESTINAL: Abdomen soft, Mild tenderness in right lower quadrant, nondistended. bowel sounds present in all 4 quadrants EXTREMITIES: No edema or joint tenderness. BACK: Nontender without deformity or crepitance. No flank tenderness. NEURO: AOx3. SKIN: No rash or erythema of visible areas Initial Vital Signs Initial Vital Signs: Vital Signs Temperature 98.1 F 04/15/21 20:58 Pulse Rate 87 04/15/21 20:58 Respiratory Rate 18 04/15/21 20:58 Blood Pressure 196/98 H 04/15/21 20:58 Pulse Oximetry 99 04/15/21 20:58 Course Orders Ordered: ED Orders 04/15/21 21:00 EKG-12 Lead Stat 04/15/21 22:30 Complete Blood Count AUTO DIFF Stat Comprehensive Metabolic Panel Stat Troponin & CK Cardiac Panel Stat 04/15/21 23:42 CT abdomen pelvis w con Stat Sodium Chloride (Normal Saline 0.9%) 1,000 mls @ 125 mls/hr IV CONT YUSUF Last Infusion: 04/16/21 01:55 Dose: 0 mls/hr Documented by: Admin: 04/15/21 22:27 Dose: 125 mls/hr Documented by: TOMASA Discontinued Medications Acetaminophen (Acetaminophen 325 Mg Tablet) 650 mg PO NOW ONE Stop: 04/16/21 01:43 Last Admin: 04/16/21 01:50 Dose: 650 mg Documented by: CHANEL Reevaluation(s) Reevaluation #1: patient resting comfortably, waiting on her ride to come at 0730 Vital Signs Vital signs: Vital Signs - 8 hr 04/15/21 22:46 04/15/21 23:00 04/15/21 23:30 Pulse Rate 74 71 73 Blood Pressure 196/95 H 178/87 H 146/73 H Pulse Oximetry 100 100 98 04/16/21 00:02 04/16/21 00:04 Pulse Rate 94 H 87 Blood Pressure 180/87 H Pulse Oximetry 96 98 MDM - Abdominal Pain Lab Data Result diagrams: 04/15/21 22:30 04/15/21 22:30 Labs: Lab Results 04/15/21 04/15/21 Range/Units 22:30 22:30 WBC 3.7 L (4.5-11.0) X10^3/uL RBC 4.48 (4.0-5.2) X10^6/uL Hgb 13.1 (12.0-16.0) g/dL Hct 38.7 (36-46) % MCV 86.5 (80-100) fL MCH 29.3 (26-34) PG MCHC 33.8 (30-36) % RDW 14.0 (11.6-14.8) % Plt Count 259 (150-400) X10^3/uL Neut % (Auto) 54.1 (50-75) % Lymph % (Auto) 20.0 L (25-40) % [place] % (Auto) 19.8 H (3-14) % Eos % (Auto) 3.0 (2-4) % Baso % (Auto) 3.1 H (0-2) % Neut # (Auto) 2000 (7982-8776) /uL Lymph # (Auto) 700 L (2987-9456) /uL [place] # (Auto) 700 (0-900) /uL Eos # (Auto) 100 (0-450) /uL Baso # (Auto) 100 (0-100) /uL Sodium 131 L (137-145) mmol/L Potassium 4.4 (3.4-5.1) mmol/L Chloride 97 L (98-107) mmol/L Carbon Dioxide 28 (22-32) mmol/L BUN 7 (7-17) mg/dL Creatinine 0.54 (0.52-1.04) mg/dL Estimated GFR > 60.0 (>60) mL/min BUN/Creatinine Ratio 13.0 (6-22) Glucose 94 (80-110) mg/dL Calcium 9.5 (8.4-10.2) mg/dL Total Bilirubin 0.3 (0.2-1.3) mg/dL AST 22 (14-36) IU/L ALT 10 (<35) IU/L Alkaline Phosphatase 66 (38-126) U/L Total Creatine Kinase 28 L (30-135) U/L CK-MB (CK-2) TNP CK-MB (CK-2) Rel Index TNP Troponin I < 0.012 (0.01-0.034) ng/mL Total Protein 7.4 (6.3-8.2) g/dL Albumin 4.2 (3.5-5.0) g/dL Globulin 3.2 (1.7-4.1) g/dL Albumin/Globulin Ratio 1.3 (1.0-2.8) Imaging Data CT scan - abdomen/pelvis: Radiologist's Impression: Mahsa Storey??86??F??1935 ? Allergy/Adv: lidocaine, levofloxacin (More??) Close Abdomen/Pelvis CT (Signed) Cristiano Mccauley - 04/15/21 Chest X-Ray (Signed) Cristiano Mccauley - 03/19/21 Hip X-Ray (Signed) Fidel Whitmore - 12/20/20 Chest/Abdomen/Pelvis CTA (Signed) Ga Magallanes - 11/06/20 Abdominal Arterial Study US (Signed) Pawel Zacarias - 10/30/20 Lumbar Spine X-Ray (Signed) Rey Sifuentes - 02/18/20 Abdomen/Pelvis CT (Signed) Lavell Dover - 11/22/19 Vascular Ultrasound (Signed) Fidel Whitmore - 10/21/19 Hip X-Ray (Signed) Del Coyne - 10/10/19 Hip X-Ray (Signed) ZacariasPawel - 09/21/19 Hip X-Ray (Signed) ZacariasPawel fernandez - 09/21/19 Knee X-Ray (Signed) Kita Resendiz - 09/20/19 Chest X-Ray (Signed) ResendizKita - 09/20/19 Hip X-Ray (Signed) Resendiz,Kita - 09/20/19 Chest X-Ray (Signed) Alen Mauro - 09/15/19 Abdomen/Pelvis CT (Signed) Alen Mauro - 11/01/18 Telemetry Strips 11/01/18 Abdomen/Pelvis CT (Signed) Zacarias,Pawel - 10/17/18 Abdomen Ultrasound (Signed) Del Coyne - 10/17/18 Abdomen/Pelvis CT (Signed) Kristie Kenny - 03/24/18 Telemetry Strips 03/24/18 Abdomen/Pelvis CT (Signed) Del Coyne - 03/13/18 Chest/Abdomen X-ray (Signed) Pilar Grimes - 03/13/18 KUB X-Ray (Signed) Kofi Altmanjeremy - 03/10/18 Telemetry Strips 12/28/17 Abdomen/Pelvis CT (Signed) Del Coyne - 12/13/17 Telemetry Strips 04/01/17 Radiology - Historical 04/01/17 Radiology - Historical 04/01/17 Radiology - Historical 05/08/16 Launch?[place] [address] CT Scan Report Signed Patient: Mahsa Storey MR#: [id number] : 1935 Acct:[id number] Age/Sex: 86 / F Date of Service: 04/15/21 Loc: ED Accession Number: [id number] ?? Procedure: CT abdomen pelvis w con Ordering Provider: Juan Pablo Ram D.O. PROCEDURE:? CT ABDOMEN PELVIS W CON ? INDICATIONS:? severe Right sided abdominal pain ? TECHNIQUE:? After the administration of intravenous contrast, axial sections acquired from the lung bases to the pubic symphysis.? Coronal and sagittal reformats were performed.? For radiation dose reduction, the following was used:? automated exposure control, adjustment of mA and/or kV according to patient size.? ? COMPARISON:? [facility], CT, CT ANGIO CHEST ABDOMEN PELVIS, 11/06/2020, 11:57.? [facility], CT, CT ABDOMEN PELVIS W CON, 11/22/2019, 17:21.? [facility], CT, CT ABDOMEN PELVIS W CON, 11/01/2018, 9:03. ? FINDINGS:? Image quality:? Excellent.? ? Lung bases:? Unremarkable. Heart:? Coronary artery atherosclerotic calcifications are present. ? ABDOMEN: Liver:? Unremarkable.? ? Gallbladder:? Unremarkable. Biliary ducts:? Unremarkable.? ? Pancreas:? Unremarkable.? ? Spleen:? Unremarkable.? ? Adrenal Glands:? Unremarkable.? ? Kidneys and Ureters:? Multifocal chronic renal cortical scarring is seen in the right kidney.? There is no hydronephrosis. ? Stomach and Bowel:? There is extensive colonic diverticulosis without definite acute diverticulitis.? No signs bowel obstruction.? Multiple small bowel loops are seen extending into pelvis. Peritoneum:? No abnormal intraperitoneal fluid.? No free air.? ? Ventral Wall: ? No hernias.? Abdominal Nodes:? No retroperitoneal or mesenteric adenopathy by size criteria.? Vessels:? Aorta and inferior vena cava are normal in size.? Moderate aortic atherosclerotic calcifications. ? PELVIS: Pelvic Organs:? A calcified degenerated uterine fibroid is again present. Bladder:? Unremarkable.? ? Pelvic Nodes: No enlarged lymph nodes.? Miscellaneous: No hernias are seen. ? ? ? Bones:? Postsurgical changes are seen in the right proximal femur with associated metallic streak artifact.? Stable chronic compression deformities at the T11 and T12 vertebrae.? The previously seen L4 compression fracture appears less prominent without significant loss of vertebral body height. ? ? IMPRESSION:? 1. No definite acute abnormality in the abdomen or pelvis. 2. Extensive colonic diverticulosis without signs acute diverticulitis. 3. Unchanged remote prior vertebral compression fractures.? ? ? Dictated by: Cristiano Mccauley M.D. on 04/16/2021 at 0:11 ? ? Approved by: Cristiano Mccauley M.D. on 04/16/2021 at 0:22 ? MDM Narrative Medical decision making narrative: Multiple etiologies for patient's symptoms considered including: [ Bowel obstruction versus diverticulitis versus kidney stone versus other] Patient's symptoms improved over duration of stay with above-stated therapies. Findings and discharge diagnosis discussed with patient/family followed by verbalization of understanding Return precautions discussed with patient/family whom verbalize understanding. Discharge Plan Departure Patient Disposition: Home Clinical Impression: Abdominal pain Qualifiers: Abdominal location: right lower quadrant Qualified Code(s): R10.31 - Right lower quadrant pain Instructions: DI for Abdominal Pain-Adult Activity Restrictions/Additional Instructions: *You have been diagnosed with [Right-sided abdominal pain with very reassuring physical exam, lab work and CT scan. ] *Labs are largely normal and CT scan doesn't show a bowel obstruction, diverticulitis, or other ominous finding. *What to do: *Please continue to take your regular medications as directed. *Please follow up with your primary care provider in 2-3 days, call for an appointment. Let them know you were seen in the Emergency Department and that we ask that you be seen in follow up. We will electronically transmit a record of today's note if your PCP is in our system *As we discussed, please consider a clear liquid diet for the next 24 hours and slowly advance as tolerated. *Return to Emergency Department if you should have any new, worsening or concerning symptoms, such as [fever greater than 101 F, shaking chills, worsening pain, persistent vomiting or other bothersome symptoms] Prescriptions: No Action multivitamin Tablet 1 tab PO DAILY Qty: 0 RF: 0 calcium carbonate [Calcium 500] 500 mg calcium (1,250 mg) Tablet 500 mg PO DAILY Qty: 0 RF: 0 omeprazole 40 mg capsule,delayed release(DR/EC) 40 mg PO DAILY Qty: 30 RF: 5 lisinopril 40 mg tablet 40 mg PO DAILY Qty: 90 RF: 1 chlordiazepoxide-clidinium 5-2.5 mg capsule 1 cap PO DAILY Qty: 90 RF: 3 fluticasone propionate 50 mcg/actuation spray,suspension 2 spray NASAL BEDTIME PRN (Reason: allergy symptoms) Qty: 16 RF: 2 hyoscyamine sulfate 0.125 mg tablet, sublingual See Rx Instructions .ROUTE .COMPLEX Qty: 45 RF: 11 (DME) Disabled Parking Qty: 1 RF: 0 dicyclomine 20 mg tablet 20 mg PO QID PRN (Reason: stomach cramps) Qty: 90 RF: 2 Metamucil (sugar) Powder 1 tbsp PO DAILY Qty: 1254 RF: 0 lorazepam [Ativan] 0.5 mg tablet 0.5 - 1 mg PO Q6H PRN (Reason: Anxiety) Qty: 20 RF: 0 acetaminophen 325 mg tablet 500 mg PO TID PRN (Reason: Pain (Scale Score 1-3)) RF: 0 Referrals: Brain Gomez MD [Primary Care Provider] -
[2021-04-16 07:07] VITALS: BP 167/87; PULSE 75; RESP 22
== END 2021-04-16 07:14 | disposition home or self-care (01) ==
PROVIDERS: Emergency Provider Emergency Medicine; PCP Internal Medicine
DX: R10.31 Right lower quadrant pain (principal)
CPT/HCPCS: 36415; 74177; 80053; 82550; 84484; 85025; 93005; 93010; 96360; 96361; 99284; Q9967

== ENCOUNTER 2021-06-10 14:50 | Emergency (ER) | payer MEDICARE, OTHER, SELFPAY ==
[2021-06-10] VITALS (17 sets, daily range): BP systolic 172–221; BP diastolic 85–131; PULSE 84–100; RESP 15–16; TEMP 37.1; O2SAT 94–99; BMI 18.8
[2021-06-10 16:55] LABS: Add Manual Diff / Slide Review NO; Basophils Absolute Auto 100 /uL (0-100); Eosinophils Absolute Auto 100 /uL (0-450); Eosinophils Percent Auto 3.7 % (2-4); Hematocrit 41.1 % (36-46); Lymphocytes Absolute Auto 500 /uL (1100-4500); Lymphocytes Percent Auto 14.4 % (25-40); Mean Corpuscular HGB Conc 33.9 % (30-36); Mean Corpuscular Hemoglobin 29.3 PG (26-34); Mean Corpuscular Volume 86.4 fL (80-100); Monocytes Absolute Auto 600 /uL (0-900); Monocytes Percent Auto 17.2 % (3-14); Neutrophils Absolute Auto 2200 /uL (1500-7000); Neutrophils Percent Auto 61.7 % (50-75); Platelet Count 262 X10^3/uL (150-400); Red Blood Cell Count 4.76 X10^6/uL (4.0-5.2); Red Cell Distribution Width 14.4 % (11.6-14.8); White Blood Cell Count 3.6 X10^3/uL (4.5-11.0)
[2021-06-10 17:03] LABS: Bacteria Urine Occasional (0-1); Culture Indicated Urine Specimen Cultured; RBC Urine 0-1/HPF (0-5/HPF); WBC Urine 1-5/HPF (0-5/HPF)
[2021-06-10 17:08] LABS: Alanine Aminotransferase 11 IU/L (<35); Albumin 4.6 g/dL (3.5-5.0); Albumin Globulin Ratio 1.3 (1.0-2.8); Alkaline Phosphatase 78 U/L (38-126); Aspartate Aminotransferase 28 IU/L (14-36); BUN Creatinine Ratio 12.1 (6-22); Bilirubin Total 0.7 mg/dL (0.2-1.3); Blood Urea Nitrogen 7 mg/dL (7-17); Carbon Dioxide 28 mmol/L (22-32); Chloride 99 mmol/L (98-107); Estimated Glomerular Filt Rate > 60.0 mL/min (>60); Globulin 3.5 g/dL (1.7-4.1); Glucose 102 mg/dL (80-110); HEMOLYSIS < 15 (0-50); Lipase 100 U/L (23-300); Potassium 3.9 mmol/L (3.4-5.1); Sodium 135 mmol/L (137-145); Total Protein 8.1 g/dL (6.3-8.2)
--- NOTE | 2021-06-10 17:23 | PC.NURSE ---
Patient reports she is feeling better
--- NOTE | 2021-06-10 18:50 | ED.ABDPAIN ---
HPI - Abdominal Pain General Chief Complaint: Abdominal Pain Stated Complaint: stomach issues Time Seen by Provider: 06/10/21 17:52 Source: patient Mode of arrival: Ambulatory History of Present Illness HPI narrative: 86F nonsmoker with a history of abdominal pain, anxiety and hypertension presents with a chief complaint of a day or 2 of gradually worsening abdominal pain and dizziness. She states that she is dizzy when she stands up or moves her head and denies any recent trauma or injury. She is unclear as to the onset of these symptoms. She denies any headache or blurred vision. She has no chest pain or shortness of breath. She does have generalized abdominal pain that seems to come and go. She denies any obvious provocation, palliation or radiation. She denies any dysuria, frequency or urgency. She has no constipation or diarrhea. She has been taking her medications as prescribed. Related Data Home Medications Medication Instructions Recorded Confirmed calcium carbonate 500 mg calcium 500 mg PO DAILY #0 02/24/11 05/21/21 (1,250 mg) tablet (Calcium 500) multivitamin 1 tab PO DAILY #0 02/24/11 05/21/21 acetaminophen 325 mg tablet 500 mg PO TID PRN 06/09/20 05/21/21 Previous Rx's Medication Instructions Recorded dicyclomine 20 mg tablet 20 mg PO QID PRN #90 tab 08/14/18 Disabled Parking #1 each 11/02/18 psyllium seed (sugar) oral powder 1 tbsp PO DAILY #1254 gram 07/01/19 (Metamucil (sugar)) omeprazole 40 mg capsule,delayed 40 mg PO DAILY #30 cap 07/06/20 release chlordiazepoxide-clidinium 5 1 cap PO DAILY #90 cap 01/29/21 mg-2.5 mg capsule fluticasone propionate 50 2 spray NASAL BEDTIME PRN #16 g 02/12/21 mcg/actuation nasal spray,suspension hyoscyamine sulfate 0.125 mg See Rx Instructions .ROUTE 03/10/21 sublingual tablet .COMPLEX #45 each lorazepam 0.5 mg tablet (Ativan) 0.5 - 1 mg PO Q6H PRN #20 tab 03/22/21 lisinopril 40 mg tablet 40 mg PO DAILY #90 tab 05/07/21 Allergies Allergy/AdvReac Type Severity Reaction Status Date / Time lidocaine AdvReac Severe RASH, Verified 05/21/21 11:40 BURNED HER levofloxacin [From LEVAQUIN] AdvReac Unknown dizziness, Verified 05/21/21 11:40 not sure if related or not...08/30/16 Review of Systems Review of Systems Narrative: GENERAL: See HPI HEENT: Denies sinus pain, ear pain, sore throat, difficulty swallowing, dizziness. RESPIRATORY: Denies dyspnea, cough, wheezing, hemoptysis, sputum. CARDIOVASCULAR: Denies chest pain, palpitations, orthopnea, edema, GASTROINTESTINAL: See HPI. : Denies dysuria, frequency, incontinence, hematuria, urinary retention. MUSCULOSKELETAL: denies weakness, joint pain, or bony pain SKIN: Denies rash, skin lesions, or other NEUROLOGIC: Denies weakness, headache, numbness, change in speech, confusion, seizures, incoordination. PSYCHIATRIC: No concerning psychosocial issues. 12 point review of systems is negative except for those stated above Patient History Medical History Abdominal pain Anxiety (09/16/13) Diverticulosis of large intestine Essential hypertension (02/24/11) History of adenomatous polyp of colon Hypertension Irritable bowel syndrome with diarrhea (09/13/16) Irritable bowel syndrome without diarrhea (05/28/15) Low back pain Lung nodule seen on imaging study (10/03/12) Mixed hyperlipidemia (02/24/11) Osteoporosis (02/24/11) Surgical History H/O colonoscopy History of appendectomy History of foot surgery Hx of appendectomy Social History marital status: number of children: 1 household members: none lives independently: Yes caregiver/support person: Yes (Step daughter) housing: apartment pets and animals: No education level: high school occupational status: other Previous occupational history: 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 hortencia/nondenominational: Anab[employer]ist leisure activities: music, reading and other Smoking Status: Never smoker Tobacco: How many years used: 0 alcohol intake: current substance use type: does not use Smoking Status: Never smoker alcohol intake frequency: a few times a week Alcohol type: wine Substance Use Type: does not use Exam Narrative Exam Narrative: GENERAL: [82 for year old patient appears stated age. Well-developed patient, in mild distress. GCS 15 HEAD: Atraumatic. Normocephalic. EYES: Pupils equal round and reactive. Extraocular motions intact. No scleral icterus. No injection or drainage. ENT: Nose without bleeding, purulent drainage. Throat without erythema, tonsillar hypertrophy or exudate. Airway patent. NECK: Trachea midline. Non tender CARDIOVASCULAR: Regular rate and rhythm without murmurs, gallops, or rubs. RESPIRATORY: Clear to auscultation. Breath sounds equal bilaterally. No wheezes, rales, or rhonchi. GASTROINTESTINAL: Abdomen soft, non-tender, nondistended. EXTREMITIES: No edema or joint tenderness. BACK: Nontender without deformity or crepitance. No flank tenderness. NEURO: AOx3. SKIN: No rash or erythema of visible areas Initial Vital Signs Initial Vital Signs: Vital Signs Temperature 98.7 F 06/10/21 14:57 Pulse Rate 98 H 06/10/21 14:57 Respiratory Rate 16 06/10/21 14:57 Blood Pressure 212/108 H 06/10/21 14:57 Pulse Oximetry 99 06/10/21 14:57 Course Orders Ordered: Discontinued Medications Hydralazine HCl (Hydralazine 20 Mg/Ml Vial) 5 mg IV NOW ONE Stop: 06/10/21 18:54 Last Admin: 06/10/21 19:10 Dose: 5 mg Documented by: ATAYLOR Labetalol HCl (Labetalol 20 Mg/4 Ml Syringe) 10 mg IV NOW ONE Stop: 06/10/21 20:09 Last Admin: 06/10/21 20:33 Dose: 10 mg Documented by: DANTEOR Vital Signs Vital signs: Vital Signs - 8 hr 06/10/21 20:45 06/10/21 21:00 06/10/21 21:01 Pulse Rate 86 90 89 Respiratory Rate 15 Blood Pressure 192/102 H 175/92 H Pulse Oximetry 94 94 94 06/10/21 21:15 06/10/21 21:30 06/10/21 22:19 Pulse Rate 84 89 87 Respiratory Rate 15 Blood Pressure 172/85 H 183/99 H Pulse Oximetry 96 95 98 MDM - Abdominal Pain Lab Data Result diagrams: 06/10/21 16:22 06/10/21 16:22 Labs: Lab Results 06/10/21 06/10/21 06/10/21 Range/Units 16:22 16:22 16:30 WBC 3.6 L (4.5-11.0) X10^3/uL RBC 4.76 (4.0-5.2) X10^6/uL Hgb 14.0 (12.0-16.0) g/dL Hct 41.1 (36-46) % MCV 86.4 (80-100) fL MCH 29.3 (26-34) PG MCHC 33.9 (30-36) % RDW 14.4 (11.6-14.8) % Plt Count 262 (150-400) X10^3/uL Neut % (Auto) 61.7 (50-75) % Lymph % (Auto) 14.4 L (25-40) % [place] % (Auto) 17.2 H (3-14) % Eos % (Auto) 3.7 (2-4) % Baso % (Auto) 3.0 H (0-2) % Neut # (Auto) 2200 (3241-4685) /uL Lymph # (Auto) 500 L (4046-5863) /uL Republic # (Auto) 600 (0-900) /uL Eos # (Auto) 100 (0-450) /uL Baso # (Auto) 100 (0-100) /uL Sodium 135 L (137-145) mmol/L Potassium 3.9 (3.4-5.1) mmol/L Chloride 99 (98-107) mmol/L Carbon Dioxide 28 (22-32) mmol/L BUN 7 (7-17) mg/dL Creatinine 0.58 (0.52-1.04) mg/dL Estimated GFR > 60.0 (>60) mL/min BUN/Creatinine Ratio 12.1 (6-22) Glucose 102 (80-110) mg/dL Calcium 10.0 (8.4-10.2) mg/dL Total Bilirubin 0.7 (0.2-1.3) mg/dL AST 28 (14-36) IU/L ALT 11 (<35) IU/L Alkaline Phosphatase 78 (38-126) U/L Total Protein 8.1 (6.3-8.2) g/dL Albumin 4.6 (3.5-5.0) g/dL Globulin 3.5 (1.7-4.1) g/dL Albumin/Globulin Ratio 1.3 (1.0-2.8) Lipase 100 (23-300) U/L Urine RBC 0-1/hpf (0-5/HPF) Urine WBC 1-5/hpf (0-5/HPF) Urine Bacteria Occasional (0-1) D (None) Ur Culture Indicated? Specimen cultured Point of care testing: Urine Dip Bedside Urine Glucose Negative Bedside Urine Bilirubin - Negative Bedside Urine Ketone +/- 5 Urine Specific [place] 1.015 Bedside Urine Occult Blood +/- Bedside Urine pH 7.0 Bedside Urine Protein - Negative Bedside Urine Urobilinogen 0.2 Bedside Urine Nitrite - Negative Bedside Urine Leukocytes + 70 Esterase MDM Narrative Medical decision making narrative: Patient with generalized abdominal pain and some dizziness along with elevated blood pressure. She had extensive workup and there is no significant finding regarding labs or imaging of her abdomen. Her blood pressure was significantly elevated and after treatment in the emergency department her blood pressure stabilized in the 170s. As her blood pressure dropped her symptoms completely resolved. She had family at the bedside and was able to ambulate through the department. Return precautions have been discussed, her PCP has been contacted and well address her hypertension, questions answered to their apparent satisfaction Discharge Plan Departure Patient Disposition: Home Clinical Impression: Essential hypertension Instructions: Essential Hypertension Activity Restrictions/Additional Instructions: *You have been diagnosed with [abdominal pain and dizziness most likely due to high blood pressure *What to do: *Please continue to take your regular medications as directed. [ ] New medication prescriptions sent to your pharmacy: [ ] [ ] New medication written as a paper prescription [x ] No new medications given * I spoke with Dr. Gomez this evening, he request I do not initiate any new medications, he will review your records and send over a new prescription to be taken in addition to your lisinopril tomorrow. *Return to Emergency Department if you should have any new, worsening or concerning symptoms, such as [fever greater than 101 F, shaking chills, worsening pain, persistent vomiting or other bothersome symptoms] Prescriptions: No Action multivitamin Tablet 1 tab PO DAILY Qty: 0 0RF Label Comments: previously in computer as 4-6 times a day. need clarification. 10/31/18 calcium carbonate [Calcium 500] 500 mg calcium (1,250 mg) Tablet 500 mg PO DAILY Qty: 0 0RF omeprazole 40 mg capsule,delayed release(DR/EC) 40 mg PO DAILY Qty: 30 5RF chlordiazepoxide-clidinium 5-2.5 mg capsule 1 cap PO DAILY Qty: 90 3RF fluticasone propionate 50 mcg/actuation spray,suspension 2 spray NASAL BEDTIME PRN (Reason: allergy symptoms) Qty: 16 2RF Rx Instructions: administer into each nostril hyoscyamine sulfate 0.125 mg tablet, sublingual See Rx Instructions .ROUTE .COMPLEX Qty: 45 11RF Dose Instruction: DISSOLVE 1 TABLET UNDER TONGUE UP TO EVERY 2 HOURS FOR CRAMPING/PAIN MAY ALSO SWALLOW, NEEDED FOR ABD PAIN. Rx Instructions: DISSOLVE 1 TABLET UNDER TONGUE UP TO EVERY 2 HOURS FOR CRAMPING/PAIN MAY ALSO SWALLOW, NEEDED FOR ABD PAIN. lisinopril 40 mg tablet 40 mg PO DAILY Qty: 90 1RF (DME) Disabled Parking Qty: 1 0RF Rx Instructions: Patient qualifies for disabled parking as per the attached form. dicyclomine 20 mg tablet 20 mg PO QID PRN (Reason: stomach cramps) Qty: 90 2RF Metamucil (sugar) Powder 1 tbsp PO DAILY Qty: 1254 0RF lorazepam [Ativan] 0.5 mg tablet 0.5 - 1 mg PO Q6H PRN (Reason: Anxiety) Qty: 20 0RF acetaminophen 325 mg tablet 500 mg PO TID PRN (Reason: Pain (Scale Score 1-3)) 0RF Referrals: Brain Gomez MD [Primary Care Provider] -
--- NOTE | 2021-06-10 18:55 | DI.CT.S_ITS ---
PROCEDURE: CT ABDOMEN PELVIS W CON INDICATIONS: severe abdominal pain TECHNIQUE: After the administration of IV contrast, axial sections were acquired from the lung bases to the pubic symphysis. Coronal and sagittal reformats were performed. For radiation dose reduction, the following was used: automated exposure control, adjustment of mA and/or kV according to patient size. COMPARISON: [facility], CT, CT ABDOMEN PELVIS W CON, 10/17/2018, 9:21. [facility], CT, CT ANGIO CHEST ABDOMEN PELVIS, 11/06/2020, 11:57. [facility], CT, CT ABDOMEN PELVIS W CON, 11/01/2018, 9:03. [facility], CT, CT ABDOMEN PELVIS W CON, 04/15/2021, 23:51. FINDINGS: Image quality: There is metallic streak artifact from patient's right hip surgical hardware. Lung bases: There is nodular thickening of the right minor fissure measuring up to 0.5 cm which appears stable compared to the prior studies. There is dependent atelectasis and scarring bilaterally. Heart: Heart size is normal. There is a small hiatal hernia. ABDOMEN: Liver: Unremarkable. Gallbladder: Unremarkable. Biliary ducts: Unremarkable. Pancreas: Unremarkable. Spleen: Unremarkable. Adrenal Glands: Unremarkable. Kidneys and Ureters: No hydronephrosis. There are areas of renal cortical thinning in the right kidney consistent with sequelae of prior infarct, trauma, or infection. Stomach and Bowel: Stomach, small bowel loops, and colon are normal in caliber and wall thickness. There is marked colonic diverticulosis without acute diverticulitis. Peritoneum: No abnormal intraperitoneal fluid. No free air. Ventral Wall: No hernia. Abdominal Nodes: No retroperitoneal or mesenteric adenopathy by size criteria. Vessels: Aorta and inferior vena cava are normal in size. PELVIS: Pelvic Organs: Unremarkable. Bladder: Unremarkable. Pelvic Nodes: No enlarged lymph nodes. Miscellaneous: No inguinal hernias are seen. Bones: There are old posttraumatic and postsurgical changes consistent with prior proximal right femoral fracture status post ORIF. There are mild anterior compression deformities of the L1 and L2 vertebral bodies which appear unchanged. IMPRESSION: 1. No definite acute intra-abdominal abnormality. 2. Extensive colonic diverticulosis without acute diverticulitis. Dictated by: Pawel Zacarias M.D. on 06/10/2021 at 19:57 Approved by: Pawel Zacarias M.D. on 06/10/2021 at 20:10
[2021-06-10] MEDS: HYDRALAZINE 20 MG/ML VIAL 5 MG IV (19:10)
[2021-06-10] MEDS: LABETALOL 20 MG/4 ML SYRINGE 10 MG IV (20:33)
== END 2021-06-10 22:25 | disposition home or self-care (01) ==
PROVIDERS: Emergency Medicine; Emergency Provider Emergency Medicine; PCP Internal Medicine
DX: I10 Essential (primary) hypertension (principal); R10.9 Unspecified abdominal pain
CPT/HCPCS: 36415; 74177; 80053; 81003; 81015; 83690; 85025; 87086; 96374; 96375; 99284; J0360; Q9967

== ENCOUNTER 2021-06-14 14:01 | Inpatient (IN) | payer MEDICARE, OTHER, SELFPAY ==
[2021-06-14] VITALS (16 sets, daily range): BP systolic 105–168; BP diastolic 57–89; PULSE 73–101; RESP 16–23; TEMP 35.9; O2SAT 95–99; BMI 18.8
--- NOTE | 2021-06-14 14:34 | DI.RAD.S_ITS ---
PROCEDURE: XR CHEST 1V INDICATIONS: altered mental status TECHNIQUE: One view of the chest was acquired. COMPARISON: [facility], CT, CT ANGIO CHEST ABDOMEN PELVIS, 11/06/2020, 11:57. [facility], CR, XR CHEST 1V, 09/20/2019, 17:41. [facility], CT, CT HEAD/BRAIN WO CON, 06/14/2021, 14:42. [facility], CR, XR CHEST 1V, 03/19/2021, 13:30. FINDINGS: Surgical changes and devices: None. Lungs and pleura: Lungs are clear. No pleural effusions or pneumothorax. Mediastinum: The cardiac contours are within normal limits. The aorta demonstrates calcification and tortuosity. Bones and chest wall: No suspicious bony lesions. Age-appropriate bony degenerative changes are seen. Overlying soft tissues appear unremarkable. IMPRESSION: Clear lungs. Dictated by: Fidel Whitmore M.D. on 06/14/2021 at 13:53 Approved by: Fidel Whitmore M.D. on 06/14/2021 at 13:54
--- NOTE | 2021-06-14 14:43 | DI.CT.S_ITS ---
PROCEDURE: CT HEAD/BRAIN WO CON INDICATIONS: Confusion TECHNIQUE: Noncontrast 4.5 mm thick angled axial sections acquired from the foramen magnum to the vertex, with coronal and sagittal reformats. For radiation dose reduction, the following was used: automated exposure control, adjustment of mA and/or kV according to patient size. COMPARISON: None. FINDINGS: Image quality: Excellent. CSF spaces: Basal cisterns are patent. No extra-axial fluid collections. The ventricles are symmetric in size and shape. Brain: No intracranial bleeds or masses. There is cerebral volume loss for age, with resultant ventricular and sulcal prominence. There are periventricular and deep white matter chronic small vessel ischemic changes. Low-density is seen within the left parietal region. There is intracranial internal carotid artery atherosclerosis. Skull and face: Calvarium and visualized facial bones appear intact, without suspicious lesions. Sinuses: Visualized sinuses and mastoids are clear. 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 Differential diagnosis includes an underlying mass with brain edema, yet this is considered to be less likely. If it would be helpful for clinical management decision making, please consider a dedicated brain MRI (without and with contrast) for further evaluation (assuming that there is no contraindication). Dictated by: Fidel Whitmore M.D. on 06/14/2021 at 13:54 Approved by: Fidel Whitmore M.D. on 06/14/2021 at 13:56
[2021-06-14 14:50] LABS: Add Manual Diff / Slide Review NO; Basophils Absolute Auto 100 /uL (0-100); Basophils Percent Auto 1.3 % (0-2); Eosinophils Absolute Auto 0 /uL (0-450); Eosinophils Percent Auto 1.1 % (2-4); Hematocrit 41.9 % (36-46); Hemoglobin 14.2 g/dL (12.0-16.0); Lymphocytes Absolute Auto 500 /uL (1100-4500); Lymphocytes Percent Auto 13.2 % (25-40); Mean Corpuscular Hemoglobin 29.5 PG (26-34); Mean Corpuscular Volume 86.6 fL (80-100); Monocytes Absolute Auto 700 /uL (0-900); Monocytes Percent Auto 17.3 % (3-14); Neutrophils Absolute Auto 2700 /uL (1500-7000); Neutrophils Percent Auto 67.1 % (50-75); Platelet Count 274 X10^3/uL (150-400); Red Blood Cell Count 4.83 X10^6/uL (4.0-5.2); Red Cell Distribution Width 14.6 % (11.6-14.8)
[2021-06-14 14:55] LABS: Alanine Aminotransferase 14 IU/L (<35); Albumin 4.8 g/dL (3.5-5.0); Albumin Globulin Ratio 1.3 (1.0-2.8); Alkaline Phosphatase 84 U/L (38-126); Aspartate Aminotransferase 30 IU/L (14-36); BUN Creatinine Ratio 14.3 (6-22); Bilirubin Total 0.7 mg/dL (0.2-1.3); Blood Urea Nitrogen 8 mg/dL (7-17); Calcium 9.7 mg/dL (8.4-10.2); Carbon Dioxide 24 mmol/L (22-32); Chloride 98 mmol/L (98-107); Estimated Glomerular Filt Rate > 60.0 mL/min (>60); Globulin 3.7 g/dL (1.7-4.1); Glucose 106 mg/dL (80-110); HEMOLYSIS < 15 (0-50); Potassium 3.6 mmol/L (3.4-5.1); Sodium 133 mmol/L (137-145); Total Protein 8.5 g/dL (6.3-8.2)
--- NOTE | 2021-06-14 15:02 | ED.NEUROSD ---
HPI - Neuro Symptoms/Deficit General Chief Complaint: Neuro Symptoms/Deficit Stated Complaint: wants to be checked for possible small stroke Time Seen by Provider: 06/14/21 14:10 Source: patient and family Mode of arrival: Ambulatory History of Present Illness HPI Narrative: Patient is an 86-year-old female. Here for evaluation of a potential stroke. She is here with her granddaughter. Granddaughter reports that on Monday of last week the patient when out to you with some friends. Apparently while she was out to eat they noticed that she was somewhat confused. Granddaughter gives examples of the patient ordering food several different times despite having already ordered actually already eating. Granddaughter states she was not told these events. On the patient started having abdominal discomfort. She was brought here to the emergency department. Had evaluation of this abdominal discomfort. Was eventually discharged home. Does not appear that the patient had any evaluation of altered mental status. Patient's granddaughter states that it was actually her son that brought the patient to the emergency department. Over the weekend the patient's granddaughter states that she noticed that the patient did seem to be more confused. Seem to be repeating questioning and tasks. Seem to be confused about things that she normally can do without much issue. One example was the patient seem to be reaching behind her when she was trying to get a hold of her walker. The walker was actually in front of the patient. Symptoms continued until today so she was brought in for evaluation. The patient reports no specific symptoms. On Anticoagulants: No Related Data Home Medications Medication Instructions Recorded Confirmed calcium carbonate 500 mg calcium 500 mg PO DAILY #0 02/24/11 05/21/21 (1,250 mg) tablet (Calcium 500) multivitamin 1 tab PO DAILY #0 02/24/11 05/21/21 acetaminophen 325 mg tablet 500 mg PO TID PRN 06/09/20 05/21/21 Previous Rx's Medication Instructions Recorded dicyclomine 20 mg tablet 20 mg PO QID PRN #90 tab 08/14/18 Disabled Parking #1 each 11/02/18 psyllium seed (sugar) oral powder 1 tbsp PO DAILY #1254 gram 07/01/19 (Metamucil (sugar)) omeprazole 40 mg capsule,delayed 40 mg PO DAILY #30 cap 07/06/20 release chlordiazepoxide-clidinium 5 1 cap PO DAILY #90 cap 01/29/21 mg-2.5 mg capsule fluticasone propionate 50 2 spray NASAL BEDTIME PRN #16 g 02/12/21 mcg/actuation nasal spray,suspension hyoscyamine sulfate 0.125 mg See Rx Instructions .ROUTE 03/10/21 sublingual tablet .COMPLEX #45 each lorazepam 0.5 mg tablet (Ativan) 0.5 - 1 mg PO Q6H PRN #20 tab 03/22/21 lisinopril 40 mg tablet 40 mg PO DAILY #90 tab 05/07/21 amlodipine 5 mg tablet 5 mg PO DAILY #90 tab 06/11/21 Allergies Allergy/AdvReac Type Severity Reaction Status Date / Time lidocaine AdvReac Severe RASH, Verified 06/14/21 14:14 BURNED HER levofloxacin [From LEVAQUIN] AdvReac Unknown dizziness, Verified 06/14/21 14:14 not sure if related or not...08/30/16 Review of Systems Constitutional Constitutional: Denies fatigue, Denies fever(s) and Denies headache(s) Eyes Eyes: Denies change in vision ENT Ears, Nose, Mouth, and Throat: Denies headache(s) Cardiovascular Cardiovascular: Denies chest pain and Denies dyspnea Respiratory Respiratory: Denies dyspnea Gastrointestinal Gastrointestinal: Reports abdominal pain and Denies vomiting Genitourinary Genitourinary: Denies dysuria Musculoskeletal Comments: Patient denies any musculoskeletal complaints Integumentary/Breasts Skin/Breast: Reports system reviewed and no additional complaints, except as documented Neurologic Neurologic: Reports as per HPI and Denies headache(s) Psychiatric Psychiatric: Reports system reviewed and no additional complaints, except as documented Endocrine Endocrine: Denies fatigue Hematologic/Lymphatic On Anticoagulants: No Allergic/Immunologic Allergic/Immunologic: Reports system reviewed and no additional complaints, except as documented Patient History Medical History Abdominal pain Anxiety (09/16/13) Diverticulosis of large intestine Essential hypertension (02/24/11) History of adenomatous polyp of colon Hypertension Irritable bowel syndrome with diarrhea (09/13/16) Irritable bowel syndrome without diarrhea (05/28/15) Low back pain Lung nodule seen on imaging study (10/03/12) Mixed hyperlipidemia (02/24/11) Osteoporosis (02/24/11) Surgical History H/O colonoscopy History of appendectomy History of foot surgery Hx of appendectomy Social History marital status: number of children: 1 household members: none lives independently: Yes caregiver/support person: Yes (Step daughter) housing: apartment pets and animals: No education level: high school occupational status: other 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 hortencia/christianity: Anabaptist leisure activities: music, reading and other Smoking Status: Never smoker Tobacco: How many years used: 0 alcohol intake: current substance use type: does not use Smoking Status: Never smoker alcohol intake frequency: a few times a week Alcohol type: wine Substance Use Type: does not use Exam Initial Vital Signs Initial Vital Signs: Vital Signs Temperature 96.7 F L 06/14/21 14:11 Pulse Rate 101 H 06/14/21 14:11 Respiratory Rate 16 06/14/21 14:11 Blood Pressure 142/89 H 06/14/21 14:11 Pulse Oximetry 98 06/14/21 14:11 Const General: cooperative, healthy appearing, comfortable and well developed [facility] Head: normal to inspection and normocephalic Nose: external nose normal Face and sinus: normal facial exam Eyes Pupils: PERRL EOM: EOM intact bilaterally Neck Neck: normal visual inspection Chest Chest: normal inspection of the chest Resp Effort & Inspection: normal respiratory effort Auscultation: clear to auscultation bilaterally Cardio Rate: regular rate Rhythm: regular rhythm GI Inspection: normal to inspection and non-distended Palpation: No firm, No guarding and tender (Mild tenderness mid abdomen.) Back/Spine/Pelvis Back: normal to inspection Skin General: no rashes or lesions noted Neuro General: patient alert, patient awake and moves all extremities Cranial Nerves: CN's II-XI intact bilaterally Speech: speech normal Motor: muscle tone normal throughout Sensory Exam: no sensory deficits noted Extrem General: capillary refill normal and No edema Psych Appearance: well kempt Scores GCS [place] coma scale eye opening: Spontaneous [place] coma scale verbal response: Confused Kvng coma scale motor response: Obey commands Kvng coma scale total score: 14 NIH Stroke Scale Level of Conciousness: Alert, keenly responsive Ask month/age: Answers both questions correctly. Open/close eyes, close hand: Performs both tasks correctly Best gaze horizontal: Normal Visual song: Partial hemianopia Facial palsy: Normal symetrical movement Left arm drift: No drift for full 10 sec Right arm drift: No drift for full 10 sec Left leg drift: No drift for full 5 sec Right leg drift: No drift for full 5 sec Limb ataxia: Present in one limb Sensory on face/arms/legs: Normal, no sensory loss Best language: No aphasia, normal Dysarthria: Normal Extinction or inattention: No abnormality Total NIH Stroke scale score: 2 Course Orders Ordered: ED Orders 06/14/21 14:30 Complete Blood Count AUTO DIFF Stat Comprehensive Metabolic Panel Stat 06/14/21 14:34 XR chest 1V Stat EKG-12 Lead Stat 06/14/21 14:43 CT head/brain wo con Stat 06/14/21 15:25 Urine Drug Screen, Rapid Stat 06/14/21 15:47 MR stroke Stat 06/14/21 16:02 COVID19 - ADMIT ([employer] swab/PCR) Stat Discontinued Medications Aspirin (Aspirin 81 Mg Chew Tab) 324 mg PO NOW ONE Stop: 06/14/21 15:43 Last Admin: 06/14/21 15:50 Dose: 324 mg Documented by: ATAYLOR Vital Signs Vital signs: Vital Signs - 8 hr 06/14/21 14:11 06/14/21 15:00 06/14/21 15:30 Temperature 96.7 F L Pulse Rate 101 H 83 83 Respiratory Rate 16 18 21 Blood Pressure 142/89 H 156/80 H 156/82 H Pulse Oximetry 98 99 99 06/14/21 16:00 Temperature Pulse Rate 89 Respiratory Rate 20 Blood Pressure 168/87 H Pulse Oximetry 99 MDM - Neuro Symptoms/Deficit Lab Data Attestation: I reviewed the patient's lab results. Result diagrams: 06/14/21 14:30 06/14/21 14:30 Labs: Lab Results 06/14/21 06/14/21 06/14/21 Range/Units 14:30 14:30 15:25 WBC 4.0 L (4.5-11.0) X10^3/uL RBC 4.83 (4.0-5.2) X10^6/uL Hgb 14.2 (12.0-16.0) g/dL Hct 41.9 (36-46) % MCV 86.6 (80-100) fL MCH 29.5 (26-34) PG MCHC 34.0 (30-36) % RDW 14.6 (11.6-14.8) % Plt Count 274 (150-400) X10^3/uL Neut % (Auto) 67.1 (50-75) % Lymph % (Auto) 13.2 L (25-40) % Lassen % (Auto) 17.3 H (3-14) % Eos % (Auto) 1.1 L (2-4) % Baso % (Auto) 1.3 (0-2) % Neut # (Auto) 2700 (7448-6717) /uL Lymph # (Auto) 500 L (9365-0203) /uL Lassen # (Auto) 700 (0-900) /uL Eos # (Auto) 0 (0-450) /uL Baso # (Auto) 100 (0-100) /uL Sodium 133 L (137-145) mmol/L Potassium 3.6 (3.4-5.1) mmol/L Chloride 98 (98-107) mmol/L Carbon Dioxide 24 (22-32) mmol/L BUN 8 (7-17) mg/dL Creatinine 0.56 (0.52-1.04) mg/dL Estimated GFR > 60.0 (>60) mL/min BUN/Creatinine Ratio 14.3 (6-22) Glucose 106 (80-110) mg/dL Calcium 9.7 (8.4-10.2) mg/dL Total Bilirubin 0.7 (0.2-1.3) mg/dL AST 30 (14-36) IU/L ALT 14 (<35) IU/L Alkaline Phosphatase 84 (38-126) U/L Total Protein 8.5 H (6.3-8.2) g/dL Albumin 4.8 (3.5-5.0) g/dL Globulin 3.7 (1.7-4.1) g/dL Albumin/Globulin Ratio 1.3 (1.0-2.8) U Opiates 300ng/mL cut Negative (Negative) Ur Oxycodone Screen Negative (Negative) Urine Methadone Screen Negative (Negative) Ur Barbiturates Screen Negative (Negative) U Tricyclic Antidepress Negative (Negative) Ur Phencyclidine Scrn Negative (Negative) Ur Amphetamines Screen Negative (Negative) U Methamphetamines Scrn Negative (Negative) Ur MDMA Scrn (Ecstasy) Negative (Negative) U Benzodiazepines Scrn Positive H (Negative) Urine Cocaine Screen Negative (Negative) U Marijuana (THC) Screen Negative (Negative) Imaging Data Chest x-ray: Radiologist's Impression: [address] [address] XRay Report Signed Patient: Mahsa Storey MR#: [id number] : 1935 Acct:[id number] Age/Sex: 86 / F Date of Service: 06/14/21 Loc: ED Accession Number: [id number] ?? Procedure: XR chest 1V Ordering Provider: Cordell Christie D.O. PROCEDURE:? XR CHEST 1V ? INDICATIONS:? altered mental status ? TECHNIQUE:? One view of the chest was acquired.? ? COMPARISON:? [facility], CT, CT ANGIO CHEST ABDOMEN PELVIS, 11/06/2020, 11:57.? [facility], CR, XR CHEST 1V, 09/20/2019, 17:41.? [facility], CT, CT HEAD/BRAIN WO CON, 06/14/2021, 14:42.? [facility], CR, XR CHEST 1V, 03/19/2021, 13:30. ? FINDINGS:? ? Surgical changes and devices:? None.? ? Lungs and pleura:? Lungs are clear.? No pleural effusions or pneumothorax.? ? Mediastinum:? The cardiac contours are within normal limits. The aorta demonstrates calcification and tortuosity. ? Bones and chest wall:? No suspicious bony lesions.? Age-appropriate bony degenerative changes are seen. ? Overlying soft tissues appear unremarkable.? IMPRESSION:? Clear lungs. ? ? Dictated by: Fidel Whitomre M.D. on 06/14/2021 at 13:53 ? ? Approved by: Fidel Whitmore M.D. on 06/14/2021 at 13:54? CT scan - head: Radiologist's Impression: [address] [address] [address] Scan Report Signed Patient: Mahsa Storey MR#: [id number] : 1935 Acct:[id number] Age/Sex: 86 / F Date of Service: 06/14/21 Loc: ED Accession Number: [id number] ?? Procedure: CT head/brain wo con Ordering Provider: Cordell Christie D.O. PROCEDURE:? CT HEAD/BRAIN WO CON ? INDICATIONS:? Confusion ? TECHNIQUE:? Noncontrast 4.5 mm thick angled axial sections acquired from the foramen magnum to the vertex, with coronal and sagittal reformats.? For radiation dose reduction, the following was used:? automated exposure control, adjustment of mA and/or kV according to patient size.? ? COMPARISON:? None. ? FINDINGS:? Image quality:? Excellent.? ? CSF spaces:? Basal cisterns are patent.? No extra-axial fluid collections.? The ventricles are symmetric in size and shape.? ? Brain:? No intracranial bleeds or masses.? There is cerebral volume loss for age, with resultant ventricular and sulcal prominence.? There are periventricular and deep white matter chronic small vessel ischemic changes.? Low-density is seen within the left parietal region.? There is intracranial internal carotid artery atherosclerosis.? ? Skull and face:? Calvarium and visualized facial bones appear intact, without suspicious lesions.? ? Sinuses:? Visualized sinuses and mastoids are clear.? ? ? IMPRESSION:? There is low density seen within the left parietal region, which is most likely related to a subacute infarct.? Differential diagnosis includes an underlying mass with brain edema, yet this is considered to be less likely. ? If it would be helpful for clinical management decision making, please consider a dedicated brain MRI (without and with contrast) for further evaluation (assuming that there is no contraindication).? ? ? Dictated by: Fidel Whitmore M.D. on 06/14/2021 at 13:54 ? ? Approved by: Fidel Whitmore M.D. on 06/14/2021 at 13:56?? ECG Data Attestation: I personally reviewed and interpreted this ECG as follows: Interpretation: Sinus rhythm Ventricular rate 83 [place] Normal QRS Normal QTC No ST T wave changes MDM Narrative Medical decision making narrative: Patient's symptoms began several days ago. She is oriented as to where she is but potentially some confusion about why she is here. She did have some difficulty with [id number] specifically with the right hand. When looking at the picture on the stroke scale she seem to focus on what was going on on the left side of the picture and ignore the right side. I have some concern about visual field deficit on the right. CT scan concerning for subacute stroke. This does fit her presenting symptoms. Not a candidate for tPA, not a candidate for code IR given the onset of the symptoms. Discussed the case with Dr. Gomez who is the patient's primary doctor. Will admit for further evaluation treatment. Discussed this with the patient and the granddaughter. The both expressed understanding agreement as well. Stroke Core Measures Exclusion Criteria TPA in CVA: Symptom Onset >3 or 4.5 Hours Discharge Plan Departure Patient Disposition: Admitted As Inpatient Clinical Impression: Cerebrovascular accident, Hypertension Admit Date/Time: 06/14/21 16:02 Admit Provider: Brain Gomez
[2021-06-14 15:32] LABS: UR Morphine/Opiate cutoff 300 Negative (Negative); Ur Creatinine Normal (Normal); Ur Specific Gravity Normal (Normal); Urine Amphetamines Negative (Negative); Urine Barbiturates Negative (Negative); Urine Benzodiazepines Positive (Negative); Urine Cocaine Negative (Negative); Urine MDMA Negative (Negative); Urine Methamphetamines Negative (Negative); Urine Phencyclidine Negative (Negative); Urine Tetrahydrocannabinol Negative (Negative); Urine pH Normal (Normal)
[2021-06-14 15:33] LABS: Urine Methadone Negative (Negative); Urine Oxycodone Negative (Negative); Urine Tricyclic Antidepressant Negative (Negative)
--- NOTE | 2021-06-14 15:47 | DI.MRI.S_ITS ---
PROCEDURE: MR STROKE Pre- and post-contrast brain MRI, non-contrast brain MR angiogram, pre- and postcontrast neck MR angiogram INDICATIONS: cva TECHNIQUE: Brain: Noncontrast axial T1 spin echo, axial T2 fast spin echo, sagittal and axial FLAIR, coronal T2 fast spin echo, axial gradient echo, axial diffusion and ADC through the brain. After the administration of contrast, axial 3D VIBE of the cranial vasculature and brain. Brain MRA: Non-contrast 3-D time of flight MR angiogram, with multiple yhyprif-ljhuaulgw-apobdbyujf (MIP) reformats performed. Neck MRA: Axial and sagittal TruFISP through the neck. Coronal dynamic MR angiogram during administration of contrast in the arterial and venous phases, with 3-dimenstional ibvoawi-pzxmjevfp-ghfsgogktf (MIP) reformats constructed from subtraction images. COMPARISON: [facility], CT, CT HEAD/BRAIN WO CON, 06/14/2021, 14:42. FINDINGS: Image quality: Excellent. BRAIN: In the posterior 3rd of the left MCA territory, there is wedge-shaped focus of restricted diffusion and edema consistent with subacute infarct. Additional punctate restricted diffusion present in the left occipital cortex No hemorrhagic conversion or GRE signal drop. Underlying moderate cerebral and cerebellar age-related atrophy and multifocal white matter chronic ischemic change present. No abnormal enhancement or evidence of luxury perfusion. BRAIN MR ANGIOGRAM: Anterior circulation: Flow related artifact limits assessment of the right intracranial ICA and M1 MCA. The right A1 GILMER is hypoplastic/aplastic. Aneurysm arises from the anterior communicating measuring 4.4 mm diameter and 6.8 mm dome the base. There is flow within both distal GILMER and MCA vessels. Posterior circulation: The visualized portions of the vertebral arteries demonstrate normal caliber, and join to form a normal appearing basilar artery. The flow within the posterior cerebral arteries is normal and symmetric. No stenoses, occlusions, or aneurysms. Left vertebral artery dominance NECK MR ANGIOGRAM: Carotids: Great vessels demonstrate a conventional anatomy as they arise from the aortic arch. The origins of the common carotid arteries appear patent. The calibers and courses of both common carotid arteries are normal. The bifurcation regions appear normal bilaterally. The internal carotid arteries demonstrate normal course and caliber. Posterior circulation: The origins of the vertebral arteries appear patent. More superior portions of both vertebral arteries demonstrate normal course and caliber, and join to form a normal appearing basilar artery. Miscellaneous: Subclavian arteries appear patent. Pre-contrast images through the neck show no soft tissue abnormalities. IMPRESSION: 1. Subacute left MCA infarct involving the posterior third territory and without evidence of hemorrhagic conversion or midline shift. Additional punctate cortical left occipital infarct noted as well. 2. 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 3. Lama-sa-hlllel flow related artifact in the right ICA and proximal MCA. Consider follow-up CT angiogram of the head for further evaluation 4. Moderate atrophy and white matter chronic ischemic change Approved by: Kip Patel M.D. on 06/14/2021 at 17:27
--- NOTE | 2021-06-14 15:47 | PM.HP.1 ---
History of Present Illness History of Present Illness Date Patient Seen: 06/14/21 Time Patient Seen: 15:47 Chief complaint: wants to be checked for possible small stroke Narrative: 86-year-old female well known to me. She has apparently been having some odd behavior for the last several days. This been noticed by friends and family members. They also noticed that she was quite hypertensive in actually brought her to the [facility] Emergency Department for evaluation on the . She has found to be quite hypertensive which has been noticed in the past. I spoke with the ER physician we made some adjustments in medication After that however she seems to had increased altered mental status with confusion disorientation etcetera. Patient was transported to the [facility] Emergency Department by family after contacting my office In the ER she was evaluated found to have a probable modest size left thalamic subacute infarct on CT and is admitted for further evaluation and treatment Patient History Medical History Abdominal pain Anxiety (09/16/13) Diverticulosis of large intestine Essential hypertension (02/24/11) History of adenomatous polyp of colon Hypertension Irritable bowel syndrome with diarrhea (09/13/16) Irritable bowel syndrome without diarrhea (05/28/15) Low back pain Lung nodule seen on imaging study (10/03/12) Mixed hyperlipidemia (02/24/11) Osteoporosis (02/24/11) Surgical History H/O colonoscopy History of appendectomy History of foot surgery Hx of appendectomy Family & Social History Social History: household members none lives independently Yes caregiver/support person Yes: Step daughter Safety & Behavioral: Feels Safe in Current Yes Environment Been Physically Hurt or No Threatened By a Person Tobacco & Substance use: Smoking Status Never smoker alcohol intake current alcohol intake frequency a few times a week Substance Use Type does not use Meds Home Medications and Allergies Home Medications Medication Instructions Recorded Confirmed Type calcium carbonate 500 mg calcium 500 mg PO DAILY #0 02/24/11 05/21/21 History (1,250 mg) tablet (Calcium 500) multivitamin 1 tab PO DAILY #0 02/24/11 05/21/21 History dicyclomine 20 mg tablet 20 mg PO QID PRN #90 tab 08/14/18 05/21/21 Rx Disabled Parking #1 each 11/02/18 05/21/21 Rx psyllium seed (sugar) oral powder 1 tbsp PO DAILY #1254 gram 07/01/19 05/21/21 Rx (Metamucil (sugar)) acetaminophen 325 mg tablet 500 mg PO TID PRN 06/09/20 05/21/21 History omeprazole 40 mg capsule,delayed 40 mg PO DAILY #30 cap 07/06/20 05/21/21 Rx release chlordiazepoxide-clidinium 5 1 cap PO DAILY #90 cap 01/29/21 05/21/21 Rx mg-2.5 mg capsule fluticasone propionate 50 2 spray NASAL BEDTIME PRN #16 g 02/12/21 05/21/21 Rx mcg/actuation nasal spray,suspension hyoscyamine sulfate 0.125 mg See Rx Instructions .ROUTE 03/10/21 05/21/21 Rx sublingual tablet .COMPLEX #45 each lorazepam 0.5 mg tablet (Ativan) 0.5 - 1 mg PO Q6H PRN #20 tab 03/22/21 05/21/21 Rx lisinopril 40 mg tablet 40 mg PO DAILY #90 tab 05/07/21 05/21/21 Rx amlodipine 5 mg tablet 5 mg PO DAILY #90 tab 06/11/21 06/14/21 Rx Allergies Allergy/AdvReac Type Severity Reaction Status Date / Time lidocaine AdvReac Severe RASH, Verified 06/14/21 14:14 BURNED HER levofloxacin [From LEVAQUIN] AdvReac Unknown dizziness, Verified 06/14/21 14:14 not sure if related or not...08/30/16 Exam Vital Signs (past 8 hours): - 06/14/21 14:11 06/14/21 15:00 Temperature 96.7 F L Pulse Rate 101 H 83 Respiratory Rate 16 18 Blood Pressure 142/89 H 156/80 H Pulse Oximetry 98 99 Oxygen Delivery Method Room Air Narrative Exam Narrative: Elderly female in no obvious distress lying on a gurney in the emergency department HEENT-normocephalic atraumatic PERRLA EOMs intact Neck-no bruits Lungs-clear Heart-regular rate and rhythm Abdomen-positive bowel tones soft nontender nondistended no organomegaly Extremities-no cyanosis clubbing or edema Neuro-alert oriented x3, took her quite some time to come up with my name however, moves all 4 extremities, no focal muscle strength deficits upper lower extremities that I can detect without testing her gait, no abnormal reflexes, visual song appear to be missing least part of the right vision and or vision out of her right eye is severely impaired, she seems to have full visual song through left eye but quite limited through right eye Objective Labs Result Diagrams: 06/14/21 14:30 06/14/21 14:30 Labs: Laboratory Results - last 24 hr 06/14/21 06/14/21 06/14/21 14:30 14:30 15:25 WBC 4.0 L RBC 4.83 Hgb 14.2 Hct 41.9 MCV 86.6 MCH 29.5 MCHC 34.0 RDW 14.6 Plt Count 274 Neut % (Auto) 67.1 Lymph % (Auto) 13.2 L [place] % (Auto) 17.3 H Eos % (Auto) 1.1 L Baso % (Auto) 1.3 Neut # (Auto) 2700 Lymph # (Auto) 500 L [place] # (Auto) 700 Eos # (Auto) 0 Baso # (Auto) 100 Sodium 133 L Potassium 3.6 Chloride 98 Carbon Dioxide 24 BUN 8 Creatinine 0.56 Estimated GFR > 60.0 BUN/Creatinine Ratio 14.3 Glucose 106 Calcium 9.7 Total Bilirubin 0.7 AST 30 ALT 14 Alkaline Phosphatase 84 Total Protein 8.5 H Albumin 4.8 Globulin 3.7 Albumin/Globulin Ratio 1.3 U Opiates 300ng/mL cut Negative Ur Oxycodone Screen Negative Urine Methadone Screen Negative Ur Barbiturates Screen Negative U Tricyclic Antidepress Negative Ur Phencyclidine Scrn Negative Ur Amphetamines Screen Negative U Methamphetamines Scrn Negative Ur MDMA Scrn (Ecstasy) Negative U Benzodiazepines Scrn Positive H Urine Cocaine Screen Negative U Marijuana (THC) Screen Negative Assessment & Plan Assessment & Plan narrative: 1. Acute/subacute CVA-not a candidate for any sort of intervention. Most likely related to her severe hypertension although the hypertension could been a manifestation and a consequence of the stroke rather than a cause. Blood pressure is still somewhat elevated but much better here today She will need skilled therapy evaluations. I would recommend MRI of the brain including angiography to evaluate for possible vascular disease beyond what has been seen on the CT scan Will place her on telemetry to be sure there is no dysrhythmias a cause of symptoms as well as obtain an echocardiogram Going to go ahead and place her on statin therapy to reduce future risk as well Discharge planning will be involved as well unclear whether patient will be able to return home or not at this point. She been independently living previously depending on her clinical course that may or not be appropriate for the future 2. Hypertension-continue patient's current antihypertensives. Patient's blood pressure not venu high but obviously we will allow some permissive hypertension at this point. 3. Irritable bowel syndrome-patient with chronic abdominal pain off and on. She uses low-dose Librax as well as Bentyl and hyoscyamine. Prescribed least 1 of these for her here in the hospital 4. VTE prophylaxis-patient would benefit from Lovenox which is been ordered. This is in addition to sequential compression devices. 5. Code status-patient have had discussions about her wishes for low resuscitation in the event of sudden cardiac or respiratory arrest. She does not want anything heroic performed and so for that purpose I will make her do not resuscitate Patient clearly deserves inpatient hospitalization. She has had a subacute CVA and needs further evaluation. She will likely be in the hospital greater than 48 hours that will include 2 separate midnights Time Spent With Patient Critical Care time: I spent a total of [] minutes of critical care time on this patient's care today; this time is exclusive of procedural time.
[2021-06-14] MEDS: ASPIRIN 81 MG CHEW TAB 324 MG PO (15:50)
[2021-06-14 17:22] LABS: COVID19 - ADMIT (NP swab/PCR) Negative (Negative)
[2021-06-15] VITALS (34 sets, daily range): BP systolic 110–173; BP diastolic 55–79; PULSE 66–96; RESP 14–65; TEMP 37.1–37.5; O2SAT 92–99; BMI 18.8
[2021-06-15] MEDS: ATORVASTATIN 20 MG TABLET PO ×2 (01:12→20:39)
--- NOTE | 2021-06-15 07:25 | P.PN_ITS ---
Subjective Subjective Date Patient Seen: 06/15/21 Time Patient Seen: 07:00 Interval history: Patient remains in the emergency department as there are no beds due to staffing up stairs in the acute care floor Had an uneventful evening MRI showed evidence of a subacute left MCA distribution CVA, without evidence of hemorrhagic conversion or midline shift. 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, and artifact affecting flow in right ICA and proximal MCA Patient herself has no additional complaints or issues Exam Vital Signs (past 8 hours): - 06/14/21 23:30 06/14/21 23:31 06/15/21 00:00 Pulse Rate 73 73 76 Respiratory Rate Blood Pressure 105/57 L 119/66 Pulse Oximetry 95 95 96 06/15/21 00:30 06/15/21 01:00 06/15/21 01:01 Pulse Rate 72 69 69 Respiratory Rate Blood Pressure 125/71 143/72 H Pulse Oximetry 96 98 98 06/15/21 01:30 06/15/21 02:00 06/15/21 02:01 Pulse Rate 83 73 71 Respiratory Rate 20 19 19 Blood Pressure 173/77 H Pulse Oximetry 99 99 06/15/21 02:30 06/15/21 03:00 06/15/21 03:30 Pulse Rate 74 76 76 Respiratory Rate 22 21 24 Blood Pressure Pulse Oximetry 97 97 97 06/15/21 04:00 06/15/21 04:01 06/15/21 04:30 Pulse Rate 74 71 85 Respiratory Rate 22 20 23 Blood Pressure 110/55 L Pulse Oximetry 97 97 98 06/15/21 05:00 06/15/21 05:30 Pulse Rate 75 68 Respiratory Rate 22 21 Blood Pressure Pulse Oximetry 92 94 Oxygen Delivery Method Room Air Objective Labs Result Diagrams: 06/14/21 14:30 06/14/21 14:30 Labs: Laboratory Results - last 24 hr 06/14/21 06/14/21 06/14/21 14:30 14:30 15:25 WBC 4.0 L RBC 4.83 Hgb 14.2 Hct 41.9 MCV 86.6 MCH 29.5 MCHC 34.0 RDW 14.6 Plt Count 274 Neut % (Auto) 67.1 Lymph % (Auto) 13.2 L [place] % (Auto) 17.3 H Eos % (Auto) 1.1 L Baso % (Auto) 1.3 Neut # (Auto) 2700 Lymph # (Auto) 500 L [place] # (Auto) 700 Eos # (Auto) 0 Baso # (Auto) 100 Sodium 133 L Potassium 3.6 Chloride 98 Carbon Dioxide 24 BUN 8 Creatinine 0.56 Estimated GFR > 60.0 BUN/Creatinine Ratio 14.3 Glucose 106 Calcium 9.7 Total Bilirubin 0.7 AST 30 ALT 14 Alkaline Phosphatase 84 Total Protein 8.5 H Albumin 4.8 Globulin 3.7 Albumin/Globulin Ratio 1.3 U Opiates 300ng/mL cut Negative Ur Oxycodone Screen Negative Urine Methadone Screen Negative Ur Barbiturates Screen Negative U Tricyclic Antidepress Negative Ur Phencyclidine Scrn Negative Ur Amphetamines Screen Negative U Methamphetamines Scrn Negative Ur MDMA Scrn (Ecstasy) Negative U Benzodiazepines Scrn Positive H Urine Cocaine Screen Negative U Marijuana (THC) Screen Negative SARS-CoV-2 (PCR) 06/14/21 16:02 WBC RBC Hgb Hct MCV MCH MCHC RDW Plt Count Neut % (Auto) Lymph % (Auto) Hyde % (Auto) Eos % (Auto) Baso % (Auto) Neut # (Auto) Lymph # (Auto) Hyde # (Auto) Eos # (Auto) Baso # (Auto) Sodium Potassium Chloride Carbon Dioxide BUN Creatinine Estimated GFR BUN/Creatinine Ratio Glucose Calcium Total Bilirubin AST ALT Alkaline Phosphatase Total Protein Albumin Globulin Albumin/Globulin Ratio U Opiates 300ng/mL cut Ur Oxycodone Screen Urine Methadone Screen Ur Barbiturates Screen U Tricyclic Antidepress Ur Phencyclidine Scrn Ur Amphetamines Screen U Methamphetamines Scrn Ur MDMA Scrn (Ecstasy) U Benzodiazepines Scrn Urine Cocaine Screen U Marijuana (THC) Screen SARS-CoV-2 (PCR) Negative [facility] Medical History Abdominal pain Anxiety (09/16/13) Diverticulosis of large intestine Essential hypertension (02/24/11) History of adenomatous polyp of colon Hypertension Irritable bowel syndrome with diarrhea (09/13/16) Irritable bowel syndrome without diarrhea (05/28/15) Low back pain Lung nodule seen on imaging study (10/03/12) Mixed hyperlipidemia (02/24/11) Osteoporosis (02/24/11) Surgical History H/O colonoscopy History of appendectomy History of foot surgery Hx of appendectomy Social History marital status: number of children: 1 household members: none lives independently: Yes caregiver/support person: Yes (Step daughter) housing: apartment pets and animals: No education level: high school occupational status: other 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 hortencia/sabianist: Sikh leisure activities: music, reading and other Smoking Status: Never smoker Tobacco: How many years used: 0 alcohol intake: current substance use type: does not use Assessment & Plan Assessment & Plan narrative: 1. Acute/subacute CVA involving left MCA distribution-patient need to be seen by skilled therapies today for further evaluation and determination of abilities and disabilities which will affect her ability to return home and or her need for rehabilitation 2. Inter cerebral arterial aneurysm-no evidence of complication at this point on her newly discovered anterior communicating artery aneurysm. This does not appear to be involved whatsoever in her presentation with her acute/subacute left middle cerebral artery event. Do not believe she needs emergent evaluation at this time but can be considered as an outpatient once she recovers from her acute stroke. Will need to monitor blood pressure carefully and keep it under adequate control however. 3. Hypertension-patient's blood pressure has been up and down. Will focus on trying to keep it more controlled with the finding of the aneurysm as above. Continue to monitor through the course of the day and adjust medications as necessary 4. GI-no evidence of active issues no active symptoms at this time but patient likely to experience some active symptoms at some point given her history. Patient's chronic meds have been ordered 5. Disposition-after patient seen by PT and OT will have better idea of whether not she will benefit from residential placement, acute in-patient rehab or will be able to return home with outpatient rehab. Note: Greater than 30 minutes total time was spent on day of service, evaluating the patient on the floor, including examining the patient, discussing clinical course with clinical and nursing staff, reviewing clinical course in the computer, preparing documentation and writing orders for continued management of care, discussing status with family as appropriate, reviewing plans for the next 24 hours with both patient/family and nursing staff as appropriate. Time Spent With Patient Critical Care time: I spent a total of [] minutes of critical care time on this patient's care today; this time is exclusive of procedural time.
--- NOTE | 2021-06-15 07:39 | DI.ECHO.S_ITS ---
:Reason For Study: CVA : :Ordering Physician: VIVI, : :CALLUM Regalado Performed By: Tatum Pacheco : :Referring: CALLUM TRINIDAD : + + Interpretation Summary The left ventricle is normal in size and wall thickness. The ejection fraction is estimated to be 60-65%. Diastolic parameters suggest a relaxation abnormality of the left ventricle, consistent with probable normal filling pressures. The right ventricular systolic function is normal. The right ventricular systolic pressure is estimated to be at least 22 mmHg based on an estimated right atrial pressure of 3 mm Hg. Mild Aortic Insufficiency. overall no significant changes, when compared to TTE from 2017. Procedure: A two-dimensional transthoracic echocardiogram with color flow and Doppler was performed. The study quality was technically adequate. Comparison is made with the echocardiogram of 04/06/2017. The heart rate ranged between 75-88 bpm during the study. The patient was in sinus during the exam. Left Ventricle: The left ventricle is normal in size and wall thickness. The ejection fraction is estimated to be 60-65%. Left ventricular wall motion is normal. Diastolic parameters suggest a relaxation abnormality of the left ventricle, consistent with probable normal filling pressures. Right Ventricle: The right ventricle is normal in size and function. The right ventricular systolic function is normal. Atria: The left atrium is mildly dilated. Right atrial size is normal. There is no Doppler evidence for an interatrial shunt. Mitral Valve: The mitral valve is normal in structure and function. There is trace mitral regurgitation. Aortic Valve: The aortic valve is trileaflet. The aortic valve opens well. The aortic valve is mildly calcified. There is no aortic valve stenosis. There is mild aortic regurgitation. Tricuspid Valve: The tricuspid valve is normal in structure and function. There is mild tricuspid regurgitation. The right ventricular systolic pressure is estimated to be at least 22 mmHg based on an estimated right atrial pressure of 3 mm Hg. Pulmonic Valve: The pulmonic valve is not well visualized. There is trace pulmonic regurgitation. Great Vessels: The aortic root is normal size. The ascending aorta could not be visualized. The IVC is of normal diameter and collapses greater than 50% with a sniff. This suggests a low right atrial pressure of 3 mm Hg. Pericardium/ Pleura There is no pericardial effusion. There is no pleural effusion. MMode/2D Measurements & Calculations LVIDd: 3.7 cm LVOT diam: 2.0 cm LVIDs: 2.5 cm Ao root diam: 3.2 cm FS: 32.8 % Ao Arch Diam (Prox Trans): 2.5 cm IVSd: 0.74 cm LVPWd: 0.70 cm LV rodriguez. diameter/BSA (cm/m^2): 2.6 LV sys. diameter/BSA (cm/m^2): 1.7 LA A2 area: 16.2 cm2 RA long axis: 5.3 cm LA A4 area: 19.5 cm2 RA area: 11.2 cm2 LA length (vol): 5.7 cm RA vol: 20.1 ml LA vol: 47.2 ml RA : 14.0 ml/m2 LA vol index: 32.7 ml/m2 IVC diam: 2.0 cm RVD1 (basal): 3.5 cm TAPSE: 1.8 cm Doppler Measurements & Calculations Ao V2 max: 146.6 cm/sec LVOT Max Masood: 113.1 cm/sec Ao V2 mean: 104.5 cm/sec LV V1 max P.1 mmHg Ao max P.6 mmHg LV V1 VTI: 24.1 cm Ao mean P.7 mmHg BHAVIN(I,D): 2.8 cm2 Ao V2 VTI: 27.0 cm BHAVIN(V,D): 2.4 cm2 sev ratio: 0.89 BHAVIN indexed to BSA (cm^2/m^2): 1.9 MV E max masood: 71.9 cm/sec TR max masood: 219.8 cm/sec MV A max masood: 104.6 cm/sec TR max P.3 mmHg MV E/A: 0.69 PA V2 max: 97.1 cm/sec Med Peak E' Masood: 5.5 cm/sec PA V2 mean: 68.8 cm/sec E/E' med: 13.1 PA mean P.0 mmHg Lat Peak E' Masood: 8.0 cm/sec PA pr(Accel): 36.2 mmHg E/E' lat: 8.9 E/e' average: 11.0 MV dec time: 0.33 sec SV(LVOT): 75.1 ml Reading Physician:SIENA
[2021-06-15] MEDS: ENOXAPARIN 40 MG/0.4 ML SYRINGE SUBCUT (08:41)
[2021-06-15] MEDS: PANTOPRAZOLE DR 40 MG TABLET PO (08:41)
[2021-06-15] MEDS: MULTIVITAMIN 1 TABLET 1 TAB PO (08:41)
[2021-06-15] MEDS: PSYLLIUM HUSK 1 PACKET PO (08:41)
[2021-06-15] MEDS: lisinopriL 20 MG TABLET 40 MG PO (08:41)
[2021-06-15] MEDS: AMLODIPINE 5 MG TABLET PO (08:41)
--- NOTE | 2021-06-15 09:42 | PT.IIE ---
Medical History (Last Reviewed 06/15/21 @ 07:27 by Brain Gomez MD) Abdominal pain Anxiety (09/16/13) Diverticulosis of large intestine Essential hypertension (02/24/11) History of adenomatous polyp of colon Hypertension Irritable bowel syndrome with diarrhea (09/13/16) Irritable bowel syndrome without diarrhea (05/28/15) Low back pain Lung nodule seen on imaging study (10/03/12) Mixed hyperlipidemia (02/24/11) Osteoporosis (02/24/11) Physical Therapy Inpatient Evaluation/Re-Eval M1 PT/OT-IP Prior Functional Status Start: 06/15/21 08:17 Freq: NEEDED Status: Active Protocol: Document 06/15/21 09:42 AW (Rec: 06/15/21 11:03 AW [id number]) Medical Review Prior Functional Status Medical History Reviewed Yes Communication Pt is an effective verbal communicator. Mobility and Gait Pt states she uses FWW when she leaves the house. She lives in a small apartment and tends to cruise furniture inside. She fell and fractured her right hip in September 2019. She went to SNF rehab and then discharged home. She states she has fallen once since that time. Activities of Daily Living and IADL's Independent. Pt cooks for herself and drives from [place] to [place]. Prior Functional Level (Other details) Pt denies any supportive services in the home. Social History Household Members none Living Arrangements Apartment/Condo Number of Stairs To Enter/Railing? 6 [address] the building with wide bilateral rails. Pt lives in a first floor apartment. Home Environment Standard Height Toilet,Tub/ Shower Home Equipment Front Wheel Walker,Shower Seat without Backrest,Hand Held Shower Employment Status Retired Additional Social History Comment Pt lives alone in a [facility] in [place]. Her granddaughter, Lucía, and step-daughter, Ewa, live nearby and maintain daily phone contact with the pt. They also visit th pt and take her on outings a few times per week. M2 PT-IP Current Condition Start: 06/15/21 08:17 Freq: NEEDED Status: Active Protocol: Document 06/15/21 09:42 AW (Rec: 06/15/21 11:03 AW [id number]) Physical Therapy Current Condition Current Condition Evaluation Date 06/15/21 Treatment Diagnosis L MCA CVA; impaired visual osng; R hemiparesis; difficulty in walking Onset Date 06/11/21 M3 PT-IP Subjective Start: 06/15/21 08:17 Freq: NEEDED Status: Active Protocol: Document 06/15/21 09:42 AW (Rec: 06/15/21 11:03 AW [id number]) Subjective Physical Therapy Visit Type Type Initial Evaluation Visit Start Time 08:57 Visit Stop Time 09:42 Total Visit Minutes 45 Notes Pt seen in ED where she is boarding in anticipation of an acute care bed opening up. Her granddaughter, Lucía, was present and contributed to history. Number of PHOTO EDITOR Visits 0 Physical Therapy Visit Comments Patient Comments Do I have to get up? It's so cold in here. Therapy Pain Assessment Pain When Pain Assessed During Mobility Pain Present Pain Present Denied Pain M4 PT-IP Mobility and Gait Start: 06/15/21 08:17 Freq: NEEDED Status: Active Protocol: Document 06/15/21 09:42 AW (Rec: 06/15/21 11:03 AW [id number]) PT-Bed Mobility Assessment Supine to Sit Supine to Sit Standby Assistance Sit to Supine Sit to Supine Standby Assistance Scooting Scooting to Edge of Bed Minimal Assistance PT-Transfer Assessment Sit to and From Stand Sit to and from Stand Contact Guard Assistance,Use of Upper Extremities Equipment Transfer Assistive Device Gait Belt,Front Wheeled Walker Orthotic/Prosthetic Devices or Brace: No Transfers Transfer Destination Bed Transfer Technique ambulated with FWW Transfer Ability Level of Assist Contact Guard Assistance Comments Mobility Comments Pt was lying in bed visiting with her granddaughter as PT arrived. BP supine was 115/79 HR 79. She agreed to get up, completing supine to sit from flat bed SBA. In sitting with feet on floor, pt leaned posteriorly when arms were up but had better control with hands on the mattress. She stood CGA and used her own FWW to ambulate 100 feet SBA/CGA. She needed direction and cues to avoid obstacles on her right side as she tended to drift toward the right. Pt agreed to ambulate without AD and did require min-mod assist to walk 10 feet due to unsteadiness and poor balance. Pt returned to the room and went back to bed SBA. She was able to scoot toward the middle of the bed and reposition herself without assist. Gait Assessment Gait Gait Assistance Required: Contact Guard Assist,Minimum Assistance,Moderate Assistance Distance (Feet) 100 Assistive Devices Assistive Device None,Gait Belt,Front Wheeled Walker Orthotic/Prosthetic Devices or Brace: No Gait Deviations General Gait Pattern Ataxic,Decreased Stride Length ,Decreased Feet Clearance, Flexed Trunk,Lateral Trunk Lean,Narrow Based Gait Factors Limiting Gait Function Factors Limiting Gait Function Decreased Strength, Incoordination,Poor Balance Comments Gait Comments Pt ambulated SBA/CGA with FWW but needed cues for attention to obstacles on right side. Without AD, pt needed min-mod assist. Stair Climbing Assessment Comments Stair Climbing Comments Not assessed. PT-Balance Assessment Sitting Balance and Reactions Static Sitting Balance Ability Good Dynamic Sitting Balance Ability Fair Standing Balance and Reactions Static Standing Balance Ability Fair Dynamic Standing Balance Ability Fair Device Used FWW; standing balance poor without AD M5 PT-IP Objective Assessments Start: 06/15/21 08:17 Freq: NEEDED Status: Active Protocol: Document 06/15/21 09:42 AW (Rec: 06/15/21 11:09 AW [id number]) Orientation Orientation/Cognition Level of Alertness Alert Orientation Name,Place,Situation Language Function Ability No Deficits Noted Safety Awareness Decreased Safety Awareness Comments When asked about driving in her current condition, pt states she believes she would be ok in spite of visual field deficits. Gross Range of Motion Upper Extremity ROM Assessment Within Functional Limits Lower Extremity ROM Assessment Within Functional Limits Strength Upper Extremity Strength Assessment Right Impaired Lower Extremity Strength Assessment Right Impaired Hip 4-/5 Knee 4-/5 Ankle 4/5 Comments Strength Comments LLE grossly 4/5 Coordination Assessment Gross Coordination Gross Coordination Impaired Assessment Finger to Nose Test Minimal Impairment Pronation/Supination Test Minimal Impairment Foot Tapping Test Minimal Impairment Sensation Assessment Sensation Gross Sensation Right UE Impaired,Right LE Impaired Light Touch Impaired Proprioception (Position) Impaired Comments Sensation Comments Pt reports duller light touch sensation on right side (LE more affected). Pt unable to administrative judge right arm position with eyes closed. Muscle Tone Muscle Tone WNL Yes Other Assessments Other Other Assessments Pt had difficulty following commands for occulomotor testing but smooth pursuits and saccades appeared abnormal . Vestibular screen was grossly normal. M6 PT-IP Treatment Start: 06/15/21 08:17 Freq: NEEDED Status: Active Protocol: Document 06/15/21 09:42 AW (Rec: 06/15/21 11:09 AW [id number]) Physical Therapy Treatment Education Education Provided Safety Other Treatments Other Treatment Performed Educated pt and her granddaughter extensively on evaluation findings, signs/ symptoms of CVA, and discharge options. Explained that skilled therapies would continue to assess during pt's hospital stay. M7 PT-IP Assessment and Plan Start: 06/15/21 08:17 Freq: NEEDED Status: Active Protocol: Document 06/15/21 09:42 AW (Rec: 06/15/21 12:37 AW [id number]) PT Summary Assessment and Plan Potential Rehabilitation Potential Good Status of Condition at Evaluation Evolving Summary Impairments Strength,Balance,Coordination, Sensation,Transfers,Gait Assessment Summary Mahsa is an 86 yo woman seen in ED with subacute L MCA/ occipital infarcts. She is boarding in ED awaiting an acute care bed. She lives alone and is modified independent at baseline using FWW for all community mobility . She cruises furniture at home. She is typically able to tolerate shopping trips and other outings. She still drives. She fell and fractured her hip in September 2019 and states she has fallen just one time since then. On assessment, pt presents with impaired right-side coordination, strength, and visual song affecting her balance and mobility independence. She would benefit from continued acute PT to address these impairments. Depending on progress and family's ability to provide increased assist at home, pt may be safe to discharge home with access to 24/7 assist and home health therapy. If pt fails to progress, SNF rehab may be more appropriate. PT will continue to assess. Goals Bed Mobility Goal Independent Transfer Goal Independent,Front Wheeled Walker Gait Goal Standby Assistance,Front Wheel Walker Gait Distance 100 Other Goals - up/down 6 steps with unilateral rail SBA Days to Meet Goals 10 Frequency of Treatment Frequency Of Treatment Twice a Day Treatment Plan Physical Therapy Treatment Plan Bed Mobility Training,Transfer Training,Gait Training, Therapeutic Exercise,Balance Retraining,Discharge Planning, Neuromuscular Re-ed, Coordination Retraining Other Recommendations and Next Treatment safety education; right-side Focus attention (set up environment to encourage awareness of right side); gait training with FWW Precautions Other Precautions falls risk Recommendations To Nursing Amount of Assist Needed 1 Person Assist Discharge Recommendations PT Discharge Recommendations Home with 24/7 Assist Available,Home Health,Home vs SNF Transportation Needs at Discharge Private Vehicle
--- NOTE | 2021-06-15 15:03 | PT-IP ANOTE ---
Attempted to see pt at 15:03, pt refused therapy reporting she is too fatigued. Will try again this PM if able.
--- NOTE | 2021-06-15 15:51 | ST.IPIE ---
Visit Care Team Role Provider Type Cordell Christie DO Emergency Provider Physician Referring Provider Specialty: Emergency Medicine Address: [address] [place] [address], [id number] Email: [email or web address] Brain Gomez MD Admit Provider Physician Attending Provider Primary Care Provider Specialty: Internal Medicine Address: [address] [place] [address], [address], [place], [address] Email: [email or web address] Past Medical History (Last Reviewed 06/15/21 @ 07:27 by Brain Gomez MD) Abdominal pain (Medical) Anxiety (Medical 09/16/13) Diverticulosis of large intestine (Medical) Essential hypertension (Medical 02/24/11) H/O colonoscopy (Medical) History of adenomatous polyp of colon (Medical) Colonoscopy December 2017 History of appendectomy (Medical) History of foot surgery (Medical) Hx of appendectomy (Medical) Hypertension (Medical) Irritable bowel syndrome with diarrhea (Medical 09/13/16) Irritable bowel syndrome without diarrhea (Medical 05/28/15) Low back pain (Medical) Lung nodule seen on imaging study (Medical 10/03/12) 2 nodules present . second nodule noted 10/03. recommended f/u in 1 yr Mixed hyperlipidemia (Medical 02/24/11) Osteoporosis (Medical 02/24/11) ST IP Initial Evaluation Report [employer] Adult Cognitive Linguistic Eval Start: 06/15/21 12:15 Freq: Status: Active Protocol: Document 06/15/21 13:24 LNK (Rec: 06/15/21 15:51 [id number]) Adult Cognitive Linguistic Evaluation Session Time Visit Start Time 09:40 Visit Stop Time 10:10 Total Visit Minutes 30 Setting Assessment Location Acute Care Visit Type Note Type Initial evaluation Patient Information Identification Type Name,Wristband Medical History 86-year-old female well known to me. She had been having some odd behavior noticed by friends and family members. Family noticed that she was hypertensive and brought her to the [facility] Emergency Department on 06/10. Adjustments in medication ere made and pt was discharged home. At home she demonstrated increased altered mental status with confusion, disorientation etc. Patient was transported to the [facility] Emergency Department by family after contacting PCP Dr Gomez. 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 Records noted part of the right vision and or vision out of her right eye is severely impaired, she seems to have full visual song through left eye but limited to the right eye Vision Vision Status Impaired Comments Reported Assessment Oral Motor Examination Completed No: Informal observation noted structures and function to be WFL Results Observed pt eating breakfast without difficulty. Rotary chew /mastication WNL. Bilateral tongue sweeps observed. No cough/choke. No overt s/sx aspiration observed Speech was 100% intelligible Informal Assessment Receptive Language Normal Yes: possibly [place], but was able to respond, follow directions and understand WFL Expressive Language Normal Yes: Slow to respond but accurate naming, describing Cookie Theft picture WFL Pragmatic Language Normal Yes Speech Normal Yes Formal Assessment Standardized Test/Screener Type [facility] ([facility]) Results The pt scored 18/30 on the SLUMS. She had difficulty with the clock drawing and locating the triangle. This may be related to her right visual field loss or to her cognition. Further assessment may be needed. The results of the SLUMS indicated the pt was oriented x3, remembered 4/5 words and was able to reverse up to 4 digits accurately. Additionally she answered 3/4 questions regarding a story read to her. A score of 18/30 indicates moderate cognitive decline; however interacting with the pt she appeared to function at a level higher than scored. Findings/Results Language Function Within functional limits Cognitive Function Mild-moderately impaired Cognitive Communication Deficits Self-awareness of Cognitive- Limited awareness (minimal Communication Deficits appreciation without specificity) Concomitant Factors Concomitant Factors Visual field neglect Impact on Functioning Activity Limits/Particip.Rest. Mild: Interpersonal Interactions Mod: General Tasks and Demands Household Tasks Safety Risks Mild: Being Left Alone at Home Managing Medication Mod: Reacting to Emergency Sev: Traveling Alone in Community Prognosis Prognosis Good Based on Family support,Duration of symptoms/severity Plan of Care Speech-Language Treatment Yes Duration while inpatient Patient/Caregiver Education Described results of evaluation,Family/caregivers expressed understanding of evaluation,Family/caregivers expressed understanding of safety precautions,Patient requires further education/ training,Family/caregivers require further education/ training Short Term Goals pt will remember to look far to the right to find common objects in her room in order to compensate for visual field cut. Pt will be able visually scan written sentences left to right with accuracy Discharge Recommendations Home,Inpatient rehab facility, Other (comment)
--- NOTE | 2021-06-15 16:23 | OT.IP.EVAL ---
Current Diagnoses Cerebral infarction, unspecified (06/14/21) Past Medical History (Last Reviewed 06/15/21 @ 07:27 by Brain Gomez MD) Abdominal pain Anxiety (09/16/13) Diverticulosis of large intestine Essential hypertension (02/24/11) H/O colonoscopy History of adenomatous polyp of colon History of appendectomy History of foot surgery Hx of appendectomy Hypertension Irritable bowel syndrome with diarrhea (09/13/16) Irritable bowel syndrome without diarrhea (05/28/15) Low back pain Lung nodule seen on imaging study (10/03/12) Mixed hyperlipidemia (02/24/11) Osteoporosis (02/24/11) Surgical History (Last Reviewed 06/15/21 @ 07:27 by Brain Gomez MD) H/O colonoscopy History of appendectomy History of foot surgery Hx of appendectomy Occupational Therapy Inpatient Evaluation/Re-Eval M1 PT/OT-IP Prior Functional Status Start: 06/15/21 08:17 Freq: NEEDED Status: Active Protocol: Document 06/15/21 16:28 [facility] (Rec: 06/15/21 16:56 [facility] [id number]) Medical Review Prior Functional Status Medical History Reviewed Yes Communication Pt is an effective verbal communicator. Mobility and Gait Pt states she uses FWW when she leaves the house. She lives in a small apartment and tends to cruise furniture inside. She fell and fractured her right hip in September 2019. She went to SNF rehab and then discharged home. She states she has fallen once since that time. Activities of Daily Living and IADL's Independent. Pt cooks for herself and drives from [place] to [employer]. Prior to a few days ago pt was independently managing her medications on her own. Prior Functional Level (Other details) Pt denies any supportive services in the home. Social History Household Members none Living Arrangements Apartment/Condo Number of Stairs To Enter/Railing? 6 [address] the building with wide bilateral rails. Pt lives in a first floor apartment. Home Environment Standard Height Toilet,Tub/ Shower Home Equipment Front Wheel Walker,Shower Seat without Backrest,Hand Held Shower,Grab Bars In Shower Employment Status Retired Additional Social History Comment Pt lives alone in a [facility] in [place]. Her granddaughter, Lucía, and step-daughter, Ewa, live nearby and maintain daily phone contact with the pt. They also visit the pt and take her on outings a few times per week. M2 OT-IP Current Condition Start: 06/15/21 16:28 Freq: Status: Active Protocol: Document 06/15/21 16:28 [facility] (Rec: 06/15/21 16:56 [facility] [id number]) Occupational Therapy Current Condition Current Condition Evaluation Date 06/15/21 Treatment Diagnosis L CVA, decreasd mobility Diagnosis Onset Date 06/14/21 M3 OT- IP Subjective and Pain Start: 06/15/21 16:28 Freq: Status: Active Protocol: Document 06/15/21 16:28 [facility] (Rec: 06/15/21 16:56 [facility] [id number]) OT- Subjective Occupational Therapy Visit Type Type Initial Evaluation Visit Start Time 15:45 Visit Stop Time 16:23 Total Visit Minutes 38 Occupational Therapy Visit Comments Patient Comments Pt agreed to get up for OT eval and Pt's daughter in the room for the beginning of the session. Patient/Caregiver Goals TO get better. OT Pain Assessment Pain When Pain Assessed At Rest Pain Present Pain Present Denied Pain M4 OT- IP ADL's Start: 06/15/21 16:28 Freq: Status: Active Protocol: Document 06/15/21 16:28 [facility] (Rec: 06/15/21 16:56 [facility] [id number]) OT [id number] Comments OT Self-Feeding Comments Not at meal time. OT ADL-Grooming Comments OT Grooming Comments Pt able to brush her hair while seated at the edge of the bed after set-up. OT ADL-Oral Care Comments Oral Care Comments Pt states to do after dinner. OT ADL-Dressing General Eval Lower Body Dressing Ability Standby Assistance,Minimal Assistance Comments OT Dressing Comments Pt able to vera/doff her socks while seated on the edge of the bed. Pt able to vera brief over her feet and needing NATHALY for balance while able to pull up over her hips . OT ADL-Toileting Comments OT Toileting Comments Pt not having to go. Pt states wears pads at home and only gets up one time at night to use the toilet. OT ADL-Bathing Comments OT Bathing Comments Not performed. M5 OT- IP IADL's Start: 06/15/21 16:28 Freq: Status: Active Protocol: Document 06/15/21 16:28 [facility] (Rec: 06/15/21 16:56 [facility] [id number]) OT-Instrumental Activities of Daily Living Deficits IADL Deficits Identified Deficits Home Safety Awareness Ability to Problem Solve Emergency Unable to Problem Solve Situations Home Safety Comments Due to pt's decreased short term memory ,executive functioning, problem solving, decreased vision right eye>> then left eye for right upper and lower quadrant of each eye at this time. Pt would benefit from acute inpt rehab pending activity tolerance versus SNF at this time as prior pt lived alone. Medication Management Medication Management Comments Pt's daughter notes pt having difficulty a few days ago with her medications and just started to have it written down for her and also was going to start checking on her daily for medications needs. Money Management Money Management Comments Pt will require assist at this due to her deficits form her CVA. Meal Preparation Meal Preparation Comments Pt will require assist at this due to her deficits from her CVA. Grassroots Organizer Grassroots Organizer Comments Pt will require assist at this due to her deficits from her CVA. Driving Driving Comments Strongly suggested not to drive at this time, pt agreed. M6 OT- IP Functional Cognition Start: 06/15/21 16:28 Freq: Status: Active Protocol: Document 06/15/21 16:28 [facility] (Rec: 06/15/21 16:56 [facility] [id number]) Cognitive Factors Limiting Selfcare Function Cognitive Ability Level of Alertness Alert Patient Orientation Name,Place,Situation Attention Span Ability Capable of Focused Attention, Capable of Sustained Attention Ability to Follow Commands Able to Follow One Step Commands with Increased Time, Able to Follow One Step Commands with Repetition Memory Description Short Term Impaired,Working Impaired Safety Awareness Underestimates Need for Assistance Problem Solving Ability Unable to Identify Errors, Needs Assist to Identify Solutions Executive Function Ability Unable to Filter Distractions, Unable to Make Plans,Unable to Organize Plans,Unable to Remember Details Cognitive Tests SLUMS Per QUARTER SECTION IRONER lit, pt scored 18/30. Cognitive Comments Cognitive Assessment Comments Pt having difficulty to follow new directions, however able to follow routine/automatic movements better at this time. When asked pt to touch her finger to thumb, pt having problem figuring out and knowing what to do and needing tactile,visual, and physical assist to complete the task. Versus when ask pt to scoot up in bed or vera/doff her socks, pt able to automatically coordinate her movements to do so. OT- Vision and Hearing OT- Hearing Assessment OT- Hearing Assessment WFL OT- Vision Assessment Visual Attentiveness Impaired Visual Smart Impaired Visual Spacial Neglect Right Vision Assessment Comments Pt more decreased vision with right eye versus left for upper and lower right quadrant at this time. Pt having difficulty with smooth movements during tracking. Continue to assess. Educated pt to keep her head turned right so able to see better and more of her visual field. M7 OT- IP Mobility and Balance Start: 06/15/21 16:28 Freq: Status: Active Protocol: Document 06/15/21 16:28 [facility] (Rec: 06/15/21 16:56 [facility] [id number]) OT- Bed Mobility Assessment Supine to Sit Supine to Sit Assist Standby Assistance Sit to Supine Sit to Supine Assist Standby Assistance OT-Transfer Assessment Sit to and From Stand Sit to and from Stand Minimal Assistance Comments Mobility Comments Pt only stood to help pull up her brief and took side steps up the bed and needing MIN/MODA for balance with FWW. OT- Balance Assessment Sitting Balance and Reactions Static Sitting Balance Ability Fair Dynamic Sitting Balance Ability Fair Standing Balance and Reactions Static Standing Balance Ability Poor Comments Other Balance Tests/Deviations/Treatment Pt tends to sit in posterior : tilt and has difficulty to process and coordinate her movements to lean forwards while at the edge of the bed. M8 OT- IP Objective Assessments Start: 06/15/21 16:28 Freq: Status: Active Protocol: Document 06/15/21 16:28 [facility] (Rec: 06/15/21 16:56 [facility] [id number]) OT Gross Range of Motion Upper Extremity Range of Motion Assessment Bilaterally Impaired OT Strength Upper Extremity Strength Assessment Bilaterally Impaired OT- Coordination Assessment Comments Coordination Comments Pt having difficulty to coordinate movements of finger to thumb for both hands. OT Sensation Assessment Comments Summary Comments Pt appears to have increased deficits with right UE but hard to assess due to pt's decreased ability to understand, process , and get her words out. M9 OT- IP Assessment and Plan Start: 06/15/21 16:28 Freq: Status: Active Protocol: Document 06/15/21 16:28 [facility] (Rec: 06/15/21 16:56 [facility] [id number]) OT Summary Assessment and Plan Potential Rehabilitation Potential Good Analytic Complexity at Evaluation Moderate Summary OT Impairments Range of Motion,Strength, Balance,Coordination,Sensation ,Functional Cognition, Functional Mobility,Self- Feeding,Grooming,Dressing, Toileting,Bathing,Toilet Transfers,Shower Transfers, Activity Tolerance Progress Towards Goals Slow Progress due to Medical Issues,Slow Progress due to Activity Tolerance,Slow Progress due to Cognition Assessment Summary Pt MOD complexity and main barriers are decreased balance, vision to the right, decreased short term memory and problem solving at this time. Pt would greatly benefit from acute inpt rehab if able to tolerate versus skilled rehab. Pt has good family support that are will to take her home if needed. Goals Self-Feeding Goal Independent Grooming Goal Independent Dressing Goal Independent Toileting Goal Independent Bathing Goal Independent Toilet Transfer Goal Independent Shower Transfer Goal Independent OT-Other Goals Pt to be able to incorporate visual strategies during ADl and mobility needs after initial VC. Days to Meet Goals 20 Frequency of Treatment Frequency Of Treatment Once a Day Treatment Plan OT Treatment Plan ADL Training,Functional Cognition Training,Functional Mobility,Vision Retraining, Patient/Family Education, Discharge Planning Other Treatment Recommendations and Next Grooming whiel standing at the Treatment Focus sink. Discharge Recommendations OT Discharge Recommendations Home with 24/7 Assist Available,SNF vs Acute Rehab Other Discharge Recommendations Pending progress and activity tolerance. Pt would greatly benefit from acute inpt rehab versus SNF. Transportation Needs at Discharge Private Vehicle,Wheelchair/ Cabulance
--- NOTE | 2021-06-15 16:43 | PT.IPTN ---
Current Diagnoses Cerebral infarction, unspecified (06/14/21) Physical Therapy Treatment Note M2 PT-IP Current Condition Start: 06/15/21 08:17 Freq: NEEDED Status: Active Protocol: Document 06/15/21 09:42 AW (Rec: 06/15/21 11:03 AW [id number]) Physical Therapy Current Condition Current Condition Evaluation Date 06/15/21 Treatment Diagnosis L MCA CVA; impaired visual song; R hemiparesis; difficulty in walking Onset Date 06/11/21 M3 PT-IP Subjective Start: 06/15/21 08:17 Freq: NEEDED Status: Active Protocol: Document 06/15/21 16:43 [facility] (Rec: 06/15/21 17:11 AW [id number]) Subjective Physical Therapy Visit Type Type Treatment Note Visit Start Time 16:28 Visit Stop Time 16:43 Total Visit Minutes 15 Notes Pt now roomed on acute care. No family were present for this visit Number of ELECTRIC DEICER ASSEMBLER Visits 0 Physical Therapy Visit Comments Patient Comments Pt is willing to get up with PT. Therapy Pain Assessment Pain When Pain Assessed During Mobility Pain Present Pain Present Denied Pain M4 PT-IP Mobility and Gait Start: 06/15/21 08:17 Freq: NEEDED Status: Active Protocol: Document 06/15/21 16:43 AW (Rec: 06/15/21 17:11 AW [id number]) PT-Bed Mobility Assessment Supine to Sit Supine to Sit Standby Assistance Sit to Supine Sit to Supine Standby Assistance Scooting Scooting to Edge of Bed Contact Guard Assistance PT-Transfer Assessment Sit to and From Stand Sit to and from Stand Contact Guard Assistance,Use of Upper Extremities Equipment Transfer Assistive Device Gait Belt,Front Wheeled Walker Orthotic/Prosthetic Devices or Brace: No Transfers Transfer Destination Bed,Toilet Transfer Technique ambulated with FWW Transfer Ability Level of Assist Minimal Assistance Comments Mobility Comments Pt was lying in bed as PT arrived. She agreed to mobilize, completing supine to sit SBA. In sitting, she leaned posteriorly, requiring cues to right her trunk. Pt has significant thoracic kyphosis which contributes to posterior lean. She stood CGA and used the FWW to ambulate around the room a total of 40 feet CGA>min A for obstacle clearance. Pt bumped the trash can and the foot of the bed with the right side of her walker. Pt then entered the bathroom and stood with FWW to pull down her briefs. She was lined up too far to the left and needed cues to scoot to her right before sitting. Pt failed to notice that her briefs were still bunched up around her hips. PT pointed this out and pt stood to pull them down further. Standing balance was fair to poor while managing briefs. After voiding, pt was able to don a fresh pair of briefs in sitting. She stood to pull up the briefs. While pulling, she lost her balance and began to fall backward requiring PT mod assist for recovery. Pt then finished pulling up her briefs and used FWW to walk back to the bed, returning to supine SBA. Pt was left with call light and tray table in reach. Bed alarm was armed for safety. Gait Assessment Gait Gait Assistance Required: Contact Guard Assist,Minimum Assistance Distance (Feet) 40 Assistive Devices Assistive Device Gait Belt,Front Wheeled Walker Orthotic/Prosthetic Devices or Brace: No Gait Deviations General Gait Pattern Ataxic,Decreased Stride Length ,Decreased Feet Clearance, Flexed Trunk,Lateral Trunk Lean,Narrow Based Gait Factors Limiting Gait Function Factors Limiting Gait Function Decreased Strength, Incoordination,Poor Balance, Poor Safety Awareness Comments Gait Comments Pt continues to neglect the right side of her environment in gait. PT educated pt that she will need to start turning her head more to scan environment. PT-Balance Assessment Sitting Balance and Reactions Static Sitting Balance Ability Fair Dynamic Sitting Balance Ability Fair Standing Balance and Reactions Static Standing Balance Ability Poor Dynamic Standing Balance Ability Poor Device Used FWW M5 PT-IP Objective Assessments Start: 06/15/21 08:17 Freq: NEEDED Status: Active Protocol: Document 06/15/21 09:42 AW (Rec: 06/15/21 11:09 AW [id number]) Orientation Orientation/Cognition Level of Alertness Alert Orientation Name,Place,Situation Language Function Ability No Deficits Noted Safety Awareness Decreased Safety Awareness Comments When asked about driving in her current condition, pt states she believes she would be ok in spite of visual field deficits. Gross Range of Motion Upper Extremity ROM Assessment Within Functional Limits Lower Extremity ROM Assessment Within Functional Limits Strength Upper Extremity Strength Assessment Right Impaired Lower Extremity Strength Assessment Right Impaired Hip 4-/5 Knee 4-/5 Ankle 4/5 Comments Strength Comments LLE grossly 4/5 Coordination Assessment Gross Coordination Gross Coordination Impaired Assessment Finger to Nose Test Minimal Impairment Pronation/Supination Test Minimal Impairment Foot Tapping Test Minimal Impairment Sensation Assessment Sensation Gross Sensation Right UE Impaired,Right LE Impaired Light Touch Impaired Proprioception (Position) Impaired Comments Sensation Comments Pt reports duller light touch sensation on right side (LE more affected). Pt unable to weatherization administrator right arm position with eyes closed. Muscle Tone Muscle Tone WNL Yes Other Assessments Other Other Assessments Pt had difficulty following commands for occulomotor testing but smooth pursuits and saccades appeared abnormal . Vestibular screen was grossly normal. M6 PT-IP Treatment Start: 06/15/21 08:17 Freq: NEEDED Status: Active Protocol: Document 06/15/21 16:43 AW (Rec: 06/15/21 17:11 AW [id number]) Physical Therapy Treatment Education Education Provided Safety M7 PT-IP Assessment and Plan Start: 06/15/21 08:17 Freq: NEEDED Status: Active Protocol: Document 06/15/21 16:43 AW (Rec: 06/15/21 17:11 AW [id number]) PT Summary Assessment and Plan Summary Impairments Strength,Balance,Coordination, Sensation,Transfers,Gait Assessment Summary Mahsa continues to run into objects on her right side. While managing her briefs at the toilet, she lost her balance in standing and needed PT assist to recover. Pt is not safe to return home alone and will require 24/7 assist for safe mobility. She would benefit from rehab after hospital stay. Depending on pt 's ability to tolerate several hours of daily therapy, she may be a good candidate for acute rehab. If not, SNF rehab may be the best option. Family would be able to take pt home but it is unclear whether they could provide 24/ 7 assist. Goals Bed Mobility Goal Independent Transfer Goal Independent,Front Wheeled Walker Gait Goal Standby Assistance,Front Wheel Walker Gait Distance 100 Other Goals - up/down 6 steps with unilateral rail SBA Days to Meet Goals 10 Frequency of Treatment Frequency Of Treatment Twice a Day Treatment Plan Physical Therapy Treatment Plan Bed Mobility Training,Transfer Training,Gait Training, Therapeutic Exercise,Balance Retraining,Discharge Planning, Neuromuscular Re-ed, Coordination Retraining Other Recommendations and Next Treatment safety education; right-side Focus attention (set up environment to encourage awareness of right side); gait training with FWW; dynamic balance Precautions Other Precautions falls risk Recommendations To Nursing Amount of Assist Needed 1 Person Assist Discharge Recommendations PT Discharge Recommendations Home vs SNF,SNF vs Acute Rehab Other Discharge Recommendations Acute vs SNF. If home, pt will need 24/7 assist and home health. Transportation Needs at Discharge Private Vehicle,Wheelchair/ Cabulance
--- NOTE | 2021-06-15 17:40 | PC.NURSE ---
Pt answers questions appropriately, slow to respond at times due to confusion; visual neglect to right eye; balance guarded and shifted posteriorly with fww; Tele SR; tolerating diet; high fall risk; bed alarm active
[2021-06-16] VITALS (7 sets, daily range): BP systolic 108–138; BP diastolic 67–77; PULSE 77–96; RESP 18–20; TEMP 36.2–36.8; O2SAT 95–99
[2021-06-16] MEDS: PANTOPRAZOLE DR 40 MG TABLET PO (05:27)
--- NOTE | 2021-06-16 08:11 | P.PN_ITS ---
Subjective Subjective Date Patient Seen: 06/16/21 Time Patient Seen: 08:11 Interval history: Patient with no new complaints. Pretty uneventful day yesterday. Physical therapy and occupational therapy both think patient needs at least 24/7 caregivers at home probably would benefit from acute inpatient rehab and or assisted placement to help recover from this event No dysrhythmias vital signs normal etcetera Echo was performed no report available in the [facility] system and cannot access through the PACS system Exam Vital Signs (past 8 hours): - 06/16/21 04:47 Temperature 97.1 F L Pulse Rate 77 Respiratory Rate 20 Blood Pressure 138/74 Pulse Oximetry 99 Oxygen Delivery Method Room Air Oxygen Flow Rate 0 Narrative Exam Narrative: Essentially unchanged from previous Objective Labs Result Diagrams: 06/14/21 14:30 06/14/21 14:30 [facility] Medical History Abdominal pain Anxiety (09/16/13) Diverticulosis of large intestine Essential hypertension (02/24/11) History of adenomatous polyp of colon Hypertension Irritable bowel syndrome with diarrhea (09/13/16) Irritable bowel syndrome without diarrhea (05/28/15) Low back pain Lung nodule seen on imaging study (10/03/12) Mixed hyperlipidemia (02/24/11) Osteoporosis (02/24/11) Surgical History H/O colonoscopy History of appendectomy History of foot surgery Hx of appendectomy Social History marital status: number of children: 1 household members: none lives independently: Yes caregiver/support person: Yes (Step daughter) housing: apartment pets and animals: No education level: high school occupational status: other Previous occupational history: 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 Acute/subacute CVA involving left MCA distribution-continue with skilled therapies. Will have discharge planning work on evaluating for possible discharge to acute inpatient rehab versus assisted facility. I am going to discontinue telemetry given lack of dysrhythmias. Will try and get results from echo. I am going to add clopidogrel for dual anti-platelet therapy to reduce future stroke risk. 2.? Hypertension-patient's blood pressure has been up and down.? Blood pressures been adequately controlled overall however. No changes 3. GI-no evidence of active issues no active symptoms at this time but patient likely to experience some active symptoms at some point given her history.? Patient's chronic meds have been ordered 4.? Disposition-as above, believe patient would benefit from acute inpatient rehab Note: Greater than 20 minutes total time was spent on day of service, evaluating the patient on the floor, including examining the patient, discussing clinical course with clinical and nursing staff, reviewing clinical course in the computer, preparing documentation and writing orders for continued management of care, discussing status with family as appropriate, reviewing plans for the next 24 hours with both patient/family and nursing staff as appropriate Quality VTE Deep Vein Thrombosis/Pulmonary Embolism Present on Admission: No
--- NOTE | 2021-06-16 09:47 | CM.DPNOTE ---
Faxed referral packet to [facility] acute rehab per Nissa and received fax conf. Tami Ugalde CM Asst.
[2021-06-16] MEDS: ENOXAPARIN 40 MG/0.4 ML SYRINGE SUBCUT (09:50)
[2021-06-16] MEDS: CLOPIDOGREL 75 MG TABLET PO (09:50)
[2021-06-16] MEDS: PSYLLIUM HUSK 1 PACKET PO (09:51)
[2021-06-16] MEDS: lisinopriL 20 MG TABLET 40 MG PO (09:51)
[2021-06-16] MEDS: MULTIVITAMIN 1 TABLET 1 TAB PO (09:51)
[2021-06-16] MEDS: AMLODIPINE 5 MG TABLET PO (09:54)
--- NOTE | 2021-06-16 10:29 | ST.OPTN ---
Visit Care Team Role Provider Type Cordell Christie DO Emergency Provider Physician Referring Provider Address: [address] [place] [address], [id number] Brain Gomez MD Admit Provider Physician Attending Provider Primary Care Provider Address: [address] [place] [address], [address], [place], [address] SUSTAINABLE AGRICULTURE FACULTY Treatment Note SUSTAINABLE AGRICULTURE FACULTY Treatment Note Start: 06/15/21 12:15 Freq: Status: Active Protocol: Document 06/16/21 10:14 LNK (Rec: 06/16/21 10:29 LNK [id number]) Speech Pathology Treatment Note Session Time Visit Start Time 09:45 Visit Stop Time 10:10 Total Visit Minutes 25 Setting Treatment Setting Acute Care Visit Type Note Type Treatment Note Next Note Type Next Note Type Treatment Note General Information General Information 86-year-old female well known to me. She had been having some odd behavior noticed by friends and family members. Family noticed that she was hypertensive and brought her to the [facility] Emergency Department on 06/10. Adjustments in medication ere made and pt was discharged home. At home she demonstrated increased altered mental status with confusion, disorientation etc. Patient was transported to the [facility] Emergency Department by family after contacting PCP Dr Gomez. 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 Records noted part of the right vision and or vision out of her right eye is severely impaired, she seems to have full visual song through left eye but limited to the right eye Subjective Identification Type Name,Date of Observations/Patient Presentation Pt was seated in bedside chair , having just eaten breakfast. Chief Complaint(s) Speech Objective Short Term Goals 1) Pt will remember to look far to the right to find common objects in her room in order to compensate for visual field cut. 2) Pt will be able visually scan written sentences left to right with accuracy Treatment Activities Pt was cued to turn head to the right to see the window. She was able to describe 3 things in the window. after a few minutes she was again asked to find the window and was observed to turn to see it spontaneously. Pt successfully read the time correctly on the wall clock. She was also able to read her white board (both left and right sides). Pt's speech was more fluent this morning with few hesitations noted. Pt was oriented x3, remarked that she wouldn't mind going to a care center in [place] if she had to go somewhere. Assessment Progress Towards Goals Excellent Progress Assessment of Overall Progress Improving Reviewed with Patient Progress Being Made Patient/Caregiver Understanding Good Plan Provided Patient/Caregiver Instruction Questions/Concerns Comment Pt would be a good candidate for Acute Rehab followed by skilled therapy Therapy Recommendations Continue with Current Program
--- NOTE | 2021-06-16 11:08 | CM.DANOTE ---
Addendum entered by KRYS Penn 06/16/21 14:58: ADD: Return call from [facility] and they can accept pt when she has her 3 Medicare qualifying nights (could d/c on the ). Will need updated COVID swab. Return call from Anuradha at [facility] Acute rehab and she states they could accept pt but need updated COVID swab and will need to figure out transport to their facility since they do not provide transport themselves. Acute Rehab could even accept tomorrow (thanksgiving) in the early afternoon if pt stable for d/c. SW to follow to confirm with pt/family preference of Acute Rehab vs SNF. BF Original Note: Patient is an 86 yo female who was admitted on 06/14/21 for Poss Stroke. Pt has [facility] and [employer] [facility] for insurance and her PCP is Dr. Brain Gomez. EMR was reviewed. Per MD, pt's CT showed CVA and admitted for MRI and further testing and eval from PT/OT/ST. Per PT/OT, recommending Acute Rehab vs SNF pending pt's ability to tolerate acute rehab amount of therapies. SW met bedside with pt and explained role and pt very pleasant and oriented but struggling some with word finding and confirms that she is slower to answer and below baseline. Pt confirms that she lives at home alone in [facility] and has been fairly independent until her CVA and has very supportive local family, especially her step-son's spouse Lucía, who will be bedside later today. Pt does not feel that family would be available for / at d/c to home and is agreeable with rehab prior to return home. SW discussed options of Acute Inpt Rehab vs SNF and pt preference is to stay in [place] for SNF at [facility] but agreeable to referrals being sent to [facility] as well as [facility] Acute Rehab in [facility]. SW called both [facility] and [facility] Acute admissions and provided update on pt and both willing to review. RAFAEL Garrett kindly faxed referral to [facility] Acute to [facility] in admissions and December at [facility] will review as well. Plan: SW to follow closely for likely pt d/c tomorrow if stable to either Acute Rehab at [facility] in [facility] vs [facility] SNF rehab in [place]. KRYS Penn
--- NOTE | 2021-06-16 12:02 | OT.IP.TRT ---
Current Diagnoses Cerebral infarction, unspecified (06/14/21) Occupational Therapy Treatment Note M2 OT-IP Current Condition Start: 06/15/21 16:28 Freq: Status: Active Protocol: Document 06/15/21 16:28 [facility] (Rec: 06/15/21 16:56 [facility] [id number]) Occupational Therapy Current Condition Current Condition Evaluation Date 06/15/21 Treatment Diagnosis L CVA, decreasd mobility Diagnosis Onset Date 06/14/21 M3 OT- IP Subjective and Pain Start: 06/15/21 16:28 Freq: Status: Active Protocol: Document 06/16/21 15:32 [facility] (Rec: 06/16/21 15:47 [facility] [id number]) OT- Subjective Occupational Therapy Visit Type Type Treatment Note Visit Start Time 11:05 Visit Stop Time 12:02 Total Visit Minutes 57 Occupational Therapy Visit Comments Patient Comments Pt agreed to do cognitive assessment and wanting to shower. Patient/Caregiver Goals TO get better. OT Pain Assessment Pain When Pain Assessed At Rest Pain Present Pain Present Denied Pain M4 OT- IP ADL's Start: 06/15/21 16:28 Freq: Status: Active Protocol: Document 06/16/21 15:32 [facility] (Rec: 06/16/21 15:47 [facility] [id number]) OT [id number] Comments OT Self-Feeding Comments Not at meal time. OT ADL-Grooming General Evaluation Areas Needing Assistance Retrieving/Set-up of Grooming Items Comments OT Grooming Comments while seated OT ADL-Dressing General Eval Lower Body Dressing Ability Minimal Assistance,Moderate Assistance Comments OT Dressing Comments Pt getting tired and needing assist to help put the brief over her feet and also to help get her socks on as tired from showering. OT ADL-Bathing Bathing Type Bathing Type Shower General Evaluation Bathing Ability Moderate Assistance Areas Needing Assistance Wash/Dry Back,Wash/Dry Perineal Area Comments OT Bathing Comments Pt having difficulty at time to use her right arm to hold the shower head and wash cloth , and at times had no issues at all. Pt appears to have motor planning issues with her right side at times. M6 OT- IP Functional Cognition Start: 06/15/21 16:28 Freq: Status: Active Protocol: Document 06/16/21 15:32 [facility] (Rec: 06/16/21 15:47 [facility] [id number]) Cognitive Factors Limiting Selfcare Function Cognitive Ability Level of Alertness Alert,Confusional State Patient Orientation Name,Place,Situation Attention Span Ability Capable of Focused Attention, Capable of Sustained Attention Ability to Follow Commands Able to Follow One Step Commands with Increased Time, Able to Follow One Step Commands with Repetition Memory Description Short Term Impaired,Working Impaired Safety Awareness Underestimates Need for Assistance Problem Solving Ability Unable to Identify Errors, Needs Assist to Identify Solutions Executive Function Ability Unable to Filter Distractions, Unable to Make Plans,Unable to Organize Plans,Unable to Remember Details Cognitive Comments Cognitive Assessment Comments Pt needing cues to sequence through showering needs. Asked pt to wash her legs and pt was perseverating on washing her abdomen versus her legs and feet. Pt having difficulty with her vision and having difficulty to complete trail Making Part A, MAX vc to turn her head and eyes to find the numbers. OT- Vision and Hearing OT- Vision Assessment Vision Assessment Comments Pt still having difficulty for her vision on the right side. M7 OT- IP Mobility and Balance Start: 06/15/21 16:28 Freq: Status: Active Protocol: Document 06/16/21 15:32 [facility] (Rec: 06/16/21 15:47 [facility] [id number]) OT-Transfer Assessment Sit to and From Stand Sit to and from Stand Contact Guard Assistance Transfers Transfer Ability Contact Guard Assistance, Minimal Assistance Technique Transfer Destination Bed,Chair,Shower Stall Devices Transfer Assistive Devices Gait Belt,Front Wheeled Walker Comments Mobility Comments Pt needing NATHALY to help step over the threshold of the shower. Noted better balance today with FWW and CGA. OT- Balance Assessment Sitting Balance and Reactions Static Sitting Balance Ability Good Dynamic Sitting Balance Ability Good Standing Balance and Reactions Static Standing Balance Ability Fair Comments Other Balance Tests/Deviations/Treatment Doing better and not leaning : back into posterior tilt and on here heels so much today. M9 OT- IP Assessment and Plan Start: 06/15/21 16:28 Freq: Status: Active Protocol: Document 06/16/21 15:32 [facility] (Rec: 06/16/21 15:47 [facility] [id number]) OT Summary Assessment and Plan Potential Rehabilitation Potential Good Analytic Complexity at Evaluation Moderate Summary OT Impairments Range of Motion,Strength, Balance,Coordination,Sensation ,Functional Cognition, Functional Mobility,Self- Feeding,Grooming,Dressing, Toileting,Bathing,Toilet Transfers,Shower Transfers, Activity Tolerance Progress Towards Goals Slow Progress due to Medical Issues,Slow Progress due to Activity Tolerance,Slow Progress due to Cognition Assessment Summary Pt MOD complexity and main barriers are decreased balancce, vision to the right, decreased short term memory and problem solving at this time. Pt would greatly benefit from acute inpt rehab if able to tolerate versus skilled rehab. Pt able to tolerate a shower today and very motivated to get better. Goals Self-Feeding Goal Independent Grooming Goal Independent Dressing Goal Independent Toileting Goal Independent Bathing Goal Independent Toilet Transfer Goal Independent Shower Transfer Goal Independent Days to Meet Goals 20 Frequency of Treatment Frequency Of Treatment Once a Day Treatment Plan OT Treatment Plan ADL Training,Functional Cognition Training,Functional Mobility,Vision Retraining, Patient/Family Education, Discharge Planning Discharge Recommendations OT Discharge Recommendations SNF vs Acute Rehab Other Discharge Recommendations Pt able to tolerate showering today and very motivated to get better and has good family support and willing to care for her. Transportation Needs at Discharge Private Vehicle,Wheelchair/ Cabulance
--- NOTE | 2021-06-16 12:17 | PT.IPTN ---
Current Diagnoses Cerebral infarction, unspecified (06/14/21) Physical Therapy Treatment Note M2 PT-IP Current Condition Start: 06/15/21 08:17 Freq: NEEDED Status: Active Protocol: Document 06/16/21 12:06 SP (Rec: 06/16/21 14:42 SP [id number]) Physical Therapy Current Condition Current Condition Evaluation Date 06/15/21 Treatment Diagnosis L MCA CVA; impaired visual song; R hemiparesis; difficulty in walking Onset Date 06/11/21 M3 PT-IP Subjective Start: 06/15/21 08:17 Freq: NEEDED Status: Active Protocol: Document 06/16/21 12:06 SP (Rec: 06/16/21 14:42 SP [id number]) Subjective Physical Therapy Visit Type Type Treatment Note Visit Start Time 12:06 Visit Stop Time 12:17 Total Visit Minutes 11 Number of VOIP NETWORK ENGINEER Visits 1 Physical Therapy Visit Comments Patient Comments pt motiviated to work with therapy. Patient Goals get stronger before going home . Therapy Pain Assessment Pain Present Pain Present Denied Pain M4 PT-IP Mobility and Gait Start: 06/15/21 08:17 Freq: NEEDED Status: Active Protocol: Document 06/16/21 12:06 SP (Rec: 06/16/21 14:42 SP [id number]) PT-Bed Mobility Assessment Supine to Sit Supine to Sit Standby Assistance Sit to Supine Sit to Supine Standby Assistance Scooting Scooting to Edge of Bed Standby Assistance Scooting Up and Down in Bed Standby Assistance PT-Transfer Assessment Sit to and From Stand Sit to and from Stand Standby Assistance,Contact Guard Assistance,Use of Upper Extremities Equipment Transfer Assistive Device Gait Belt,Front Wheeled Walker Orthotic/Prosthetic Devices or Brace: No Transfers Transfer Destination Bed,Chair Transfer Technique ambulated with FWW Transfer Ability Level of Assist Standby Assistance,Use of Upper Extremities Comments Mobility Comments pt seated up in chair when arrived. Cued scoot to EOchair , Sit>stand CGA with cues for proper hand placement. Pt ambulated around room x2 laps with cues for obstacle mgt end of bed, body center inside/ closer to FWW during turns, tends have fWW to far front and L foot outside fWW. Noted slight L foot slide instead foot clearance/ stride during gait. Pt returned to side of bed, cued for motor planning safety least distance turns 1/ 4 to R once EOB instead of full 3/4 turn to position at EOB, FWW back fully with her and safety reach back prior to sit EOB CGA. Sit<> supine, scoot up/ down, safety centering in bed and to EOB SBA. Pt SPT bed>chair SBA with fully step back chair felt behind calves and FWW full back, then reach back for safety sit in chair, SBA. VOIP NETWORK ENGINEER provided chair alarm due to safety cues required during mobiltiy. Will continue to assess in pm. Gait Assessment Gait Gait Assistance Required: Contact Guard Assist Distance (Feet) 60 Able to Maintain Weight Bearing Status Yes During Gait Assistive Devices Assistive Device Gait Belt,Front Wheeled Walker Orthotic/Prosthetic Devices or Brace: No Gait Deviations General Gait Pattern Ataxic,Decreased Stride Length ,Decreased Feet Clearance, Flexed Trunk,Lateral Trunk Lean,Narrow Based Gait Factors Limiting Gait Function Factors Limiting Gait Function Decreased Strength, Incoordination,Poor Safety Awareness Comments Gait Comments Pt tends to neglect R side of environment during turns in room comes close to door and LLE step, slide outside of FWW at times, CGA. Continued educated pt that she will need to start turning her head more to scan environment. Stair Climbing Assessment Comments Stair Climbing Comments Not assessed. PT-Balance Assessment Sitting Balance and Reactions Static Sitting Balance Ability Good Dynamic Sitting Balance Ability Good Standing Balance and Reactions Static Standing Balance Ability Good Dynamic Standing Balance Ability Fair Device Used FWW M5 PT-IP Objective Assessments Start: 06/15/21 08:17 Freq: NEEDED Status: Active Protocol: Document 06/15/21 09:42 AW (Rec: 06/15/21 11:09 AW [id number]) Orientation Orientation/Cognition Level of Alertness Alert Orientation Name,Place,Situation Language Function Ability No Deficits Noted Safety Awareness Decreased Safety Awareness Comments When asked about driving in her current condition, pt states she believes she would be ok in spite of visual field deficits. Gross Range of Motion Upper Extremity ROM Assessment Within Functional Limits Lower Extremity ROM Assessment Within Functional Limits Strength Upper Extremity Strength Assessment Right Impaired Lower Extremity Strength Assessment Right Impaired Hip 4-/5 Knee 4-/5 Ankle 4/5 Comments Strength Comments LLE grossly 4/5 Coordination Assessment Gross Coordination Gross Coordination Impaired Assessment Finger to Nose Test Minimal Impairment Pronation/Supination Test Minimal Impairment Foot Tapping Test Minimal Impairment Sensation Assessment Sensation Gross Sensation Right UE Impaired,Right LE Impaired Light Touch Impaired Proprioception (Position) Impaired Comments Sensation Comments Pt reports duller light touch sensation on right side (LE more affected). Pt unable to tipping machine operator automatic right arm position with eyes closed. Muscle Tone Muscle Tone WNL Yes Other Assessments Other Other Assessments Pt had difficulty following commands for occulomotor testing but smooth pursuits and saccades appeared abnormal . Vestibular screen was grossly normal. M6 PT-IP Treatment Start: 06/15/21 08:17 Freq: NEEDED Status: Active Protocol: Document 06/16/21 12:06 SP (Rec: 06/16/21 14:42 SP [id number]) Physical Therapy Treatment Education Education Provided Safety M7 PT-IP Assessment and Plan Start: 06/15/21 08:17 Freq: NEEDED Status: Active Protocol: Document 06/16/21 12:06 SP (Rec: 06/16/21 14:42 SP [id number]) PT Summary Assessment and Plan Potential Rehabilitation Potential Good Status of Condition at Evaluation Evolving Summary Impairments Strength,Balance,Coordination, Sensation,Transfers,Gait Progress Towards Goals Progressing Toward Goals,Slow Progress due to Activity Tolerance Assessment Summary Pt tends to get close to objects on R, decreased foot clearance, requires safety cuing body positioning in fWW, pivots fully, RLE and FWW fully back for safe transfers. Pt lives alone and not back to her baseline. She would benefit from SNF for strengthening, safety techniques toward functional independence before returning home. Goals Bed Mobility Goal Independent Transfer Goal Independent,Front Wheeled Walker Gait Goal Standby Assistance,Front Wheel Walker Gait Distance 100 Other Goals - up/down 6 steps with unilateral rail SBA Days to Meet Goals 10 Frequency of Treatment Frequency Of Treatment Twice a Day Treatment Plan Physical Therapy Treatment Plan Bed Mobility Training,Transfer Training,Gait Training, Therapeutic Exercise,Balance Retraining,Discharge Planning, Neuromuscular Re-ed, Coordination Retraining Other Recommendations and Next Treatment safety education; right-side Focus attention (set up environment to encourage awareness of right side); gait training with FWW; dynamic balance Precautions Other Precautions falls risk Recommendations To Nursing Amount of Assist Needed 1 Person Assist Discharge Recommendations PT Discharge Recommendations SNF vs Acute Rehab Transportation Needs at Discharge Private Vehicle,Wheelchair/ Cabulance
--- NOTE | 2021-06-16 15:06 | PT.IPTN ---
Current Diagnoses Cerebral infarction, unspecified (06/14/21) Physical Therapy Treatment Note M2 PT-IP Current Condition Start: 06/15/21 08:17 Freq: NEEDED Status: Active Protocol: Document 06/16/21 14:48 SP (Rec: 06/16/21 18:11 SP [id number]) Physical Therapy Current Condition Current Condition Evaluation Date 06/15/21 Treatment Diagnosis L MCA CVA; impaired visual song; R hemiparesis; difficulty in walking Onset Date 06/11/21 M3 PT-IP Subjective Start: 06/15/21 08:17 Freq: NEEDED Status: Active Protocol: Document 06/16/21 14:48 SP (Rec: 06/16/21 18:11 SP [id number]) Subjective Physical Therapy Visit Type Type Treatment Note Visit Start Time 14:48 Visit Stop Time 15:06 Total Visit Minutes 18 Number of LAP LAYER Visits 2 Physical Therapy Visit Comments Patient Comments pt motiviated to work with therapy. Patient Goals get stronger before going home . Therapy Pain Assessment Pain Present Pain Present Denied Pain M4 PT-IP Mobility and Gait Start: 06/15/21 08:17 Freq: NEEDED Status: Active Protocol: Document 06/16/21 14:48 SP (Rec: 06/16/21 18:11 SP [id number]) PT-Transfer Assessment Sit to and From Stand Sit to and from Stand Standby Assistance,1 Person Assistance,Use of Upper Extremities Equipment Transfer Assistive Device Gait Belt,Front Wheeled Walker Orthotic/Prosthetic Devices or Brace: No Transfers Transfer Destination Chair Transfer Technique ambulated with FWW Transfer Ability Level of Assist Contact Guard Assistance, Minimal Assistance Comments Mobility Comments Pt up in chair when arrived. Scoot to EOchair, sit>stand SBA with cues for push from chair use of FWW for stabilizing. Romberg assessment WBOS 30s EC stable, semi tandem unable to maintain balance without 1UE support, pt tends to increase weight over LLE, decreased stance time in semi tandem on R. Pt progress distanced gait using FWW CGA- SBA into hallway approx 80 ft total, mod cues for scanning to R for obstacle mgt, neglect on R side vision field, cued scanning to R for safety sight , tighter turns bringing FWW around her in WBOS stationary stance, improved BLE receiprocal gait, RLE doesn't consistantly clear floor, improves with cues. Pt returned to chair, cues for backing up fully BLE until feel chair behind, centered and reach back slow descent CG - 5%A. Gait Assessment Gait Gait Assistance Required: Standby Assistance,Contact Guard Assist Distance (Feet) 80 Able to Maintain Weight Bearing Status Yes During Gait Assistive Devices Assistive Device Gait Belt,Front Wheeled Walker Orthotic/Prosthetic Devices or Brace: No Gait Deviations General Gait Pattern Ataxic,Decreased Stride Length ,Decreased Feet Clearance, Flexed Trunk,Lateral Trunk Lean,Wide Based Gait Factors Limiting Gait Function Factors Limiting Gait Function Decreased Activity Tolerance, Decreased Strength,Difficulty Following Directions,Poor Safety Awareness Comments Gait Comments see mobility comments Stair Climbing Assessment Comments Stair Climbing Comments Not assessed. PT-Balance Assessment Sitting Balance and Reactions Static Sitting Balance Ability Good Dynamic Sitting Balance Ability Good Standing Balance and Reactions Static Standing Balance Ability Good Dynamic Standing Balance Ability Good Device Used FWW Functional Assessments Other Functional Tests Performed [employer] WBOS EC 30sec, semi tandem EO unable without 1 UE contact. M5 PT-IP Objective Assessments Start: 06/15/21 08:17 Freq: NEEDED Status: Active Protocol: Document 06/15/21 09:42 AW (Rec: 06/15/21 11:09 AW [id number]) Orientation Orientation/Cognition Level of Alertness Alert Orientation Name,Place,Situation Language Function Ability No Deficits Noted Safety Awareness Decreased Safety Awareness Comments When asked about driving in her current condition, pt states she believes she would be ok in spite of visual field deficits. Gross Range of Motion Upper Extremity ROM Assessment Within Functional Limits Lower Extremity ROM Assessment Within Functional Limits Strength Upper Extremity Strength Assessment Right Impaired Lower Extremity Strength Assessment Right Impaired Hip 4-/5 Knee 4-/5 Ankle 4/5 Comments Strength Comments LLE grossly 4/5 Coordination Assessment Gross Coordination Gross Coordination Impaired Assessment Finger to Nose Test Minimal Impairment Pronation/Supination Test Minimal Impairment Foot Tapping Test Minimal Impairment Sensation Assessment Sensation Gross Sensation Right UE Impaired,Right LE Impaired Light Touch Impaired Proprioception (Position) Impaired Comments Sensation Comments Pt reports duller light touch sensation on right side (LE more affected). Pt unable to station operator right arm position with eyes closed. Muscle Tone Muscle Tone WNL Yes Other Assessments Other Other Assessments Pt had difficulty following commands for occulomotor testing but smooth pursuits and saccades appeared abnormal . Vestibular screen was grossly normal. M6 PT-IP Treatment Start: 06/15/21 08:17 Freq: NEEDED Status: Active Protocol: Document 06/16/21 14:48 SP (Rec: 06/16/21 18:11 SP [id number]) Physical Therapy Treatment Education Education Provided Safety M7 PT-IP Assessment and Plan Start: 06/15/21 08:17 Freq: NEEDED Status: Active Protocol: Document 06/16/21 14:48 SP (Rec: 06/16/21 18:11 SP [id number]) PT Summary Assessment and Plan Potential Rehabilitation Potential Good Status of Condition at Evaluation Evolving Summary Impairments Strength,Balance,Coordination, Sensation,Transfers,Gait Progress Towards Goals Progressing Toward Goals,Slow Progress due to Activity Tolerance Assessment Summary Pt continues R sided neglect, cues for scanning to R for safety obstacle mgt in hallway during gait CGA using FWW. SBA sit<>stand with cues proper HP. static WBOS stance EC 30 sec, stable. unable semi tandem stance without UE support. She would benefit from SNF for strengthening, safety techniques toward functional independence before returning home. Goals Bed Mobility Goal Independent Transfer Goal Independent,Front Wheeled Walker Gait Goal Standby Assistance,Front Wheel Walker Gait Distance 100 Other Goals - up/down 6 steps with unilateral rail SBA Days to Meet Goals 10 Frequency of Treatment Frequency Of Treatment Twice a Day Treatment Plan Physical Therapy Treatment Plan Bed Mobility Training,Transfer Training,Gait Training, Therapeutic Exercise,Balance Retraining,Discharge Planning, Neuromuscular Re-ed, Coordination Retraining Other Recommendations and Next Treatment safety education; right-side Focus attention (set up environment to encourage awareness of right side); gait training with FWW; dynamic balance Precautions Other Precautions falls risk Recommendations To Nursing Amount of Assist Needed Standby Assistance,1 Person Assist Discharge Recommendations PT Discharge Recommendations SNF vs Acute Rehab Transportation Needs at Discharge Private Vehicle,Wheelchair/ Cabulance
--- NOTE | 2021-06-16 16:50 | PC.NURSE ---
Pt sitting in chair most of day, Lungs clear, SpO2 94% RA Tele D/C'd as per orders. Denies any discomfort. Call light w/in reach, chair alarm on for pt safety. Continue w/plan of care.
[2021-06-16] MEDS: ATORVASTATIN 20 MG TABLET PO (22:57)
[2021-06-17 00:35] VITALS: O2SAT 96
[2021-06-17] MEDS: PANTOPRAZOLE DR 40 MG TABLET PO (06:07)
[2021-06-17 07:00] VITALS: BP 134/73; PULSE 99; RESP 18; TEMP 36.8; O2SAT 98
[2021-06-17 09:41] VITALS: BP 134/73
[2021-06-17] MEDS: AMLODIPINE 5 MG TABLET PO (09:41)
[2021-06-17] MEDS: MULTIVITAMIN 1 TABLET 1 TAB PO (09:41)
[2021-06-17] MEDS: ENOXAPARIN 40 MG/0.4 ML SYRINGE SUBCUT (09:41)
[2021-06-17] MEDS: lisinopriL 20 MG TABLET 40 MG PO (09:41)
[2021-06-17] MEDS: PSYLLIUM HUSK 1 PACKET PO (09:42)
[2021-06-17] MEDS: CLOPIDOGREL 75 MG TABLET PO (09:42)
--- NOTE | 2021-06-17 11:23 | CM.DANOTE ---
Addendum entered by Lucrecia Nelson 06/17/21 16:06: Patient confirmed this AM with HEAD OF MARKETING ADOMETRY that family aware of patient's transfer to [facility] today. HEAD OF MARKETING ADOMETRY received call from granddaughter Lucía indicating that she was not informed? Notified granddaughter that patient clearly mentioned to HEAD OF MARKETING ADOMETRY this AM that no family needed to be contacted. In addition, family upset that they have not spoken to provider. P: Notified [facility] of above. KJS Addendum entered by Lucrecia Nelson 06/17/21 11:46: P: Reiterated with patient that her first choice is [facility]. Received call from Anuradha at Acute Rehab notifying her of patient's choice. P: [facility] at time of d/c. ROSALINOS Original Note: DCP/Assessment: Reviewed chart. Patient ia a 86yr old female admitted to . with stroke like symptoms. PCP is Dr. Gomez. Primary payor is 1)Medicare 2)[facility]. Met with patient this AM and she confirms that she is aware and agreeable to short SNF stay. First choice is [facility] and they have already received referral. Spoke with Mandie this AM and patient can be picked up at approximately 11:30AM. RN given number to call report. Orders and PASRR faxed. P: [facility] today. ROSALINOS Discharge Planning/Care Management CM Discharge Assessment Start: 06/17/21 10:47 Freq: Status: Active Protocol: Document 06/17/21 10:47 FERNANDO (Rec: 06/17/21 11:23 FERNANDO [id number]) Discharge Planning Assessment Assigned Web Development Intern KRYS Wright Contact Information Ewa Storey (daughter) ph# [phone] Advance Directives? No History Provided By Patient,Medical Record Prior Living Arrangements Apartment/Condo Household Members none Type of transporation used prior to Drives own vehicle admit Independent with ADL's Yes Is patient alert and oriented? Yes Caregiver for Another No Patient/Family Preference [facility] Facility Barriers to Discharge No Discharge Plan [facility] Facility Referrals Initiated [facility] If patient plan is SNF: Has PASSR been No completed? Review Status In Process Next Review Type Continued Stay Review
[2021-06-17 11:42] LABS: COVID19 -Nasal RAPID Negative (Negative)
--- NOTE | 2021-06-17 12:25 | PM.DS.1 ---
History of Present Illness History of Present Illness Chief complaint: wants to be checked for possible small stroke Narrative: 86-year-old female well known to me.? She has apparently been having some odd behavior for the last several days.? This been noticed by friends and family members.? They also noticed that she was quite hypertensive in actually brought her to the [facility] Emergency Department for evaluation on the .? She has found to be quite hypertensive which has been noticed in the past.? I spoke with the ER physician we made some adjustments in medication After that however she seems to had increased altered mental status with confusion disorientation etcetera.? Patient was transported to the [facility] Emergency Department by family after contacting my office In the ER she was evaluated found to have a probable modest size left thalamic subacute infarct on CT and is admitted for further evaluation and treatment Discharge Providers Provider Date of admission: 06/14/21 16:02 Discharge Date: 06/17/21 Primary care physician: Brain Gomez MD Consults: 06/14/21 20:59 Consult to Discharge Planning Routine Comment: Consult to Occupational Therapy Evaluate & Treat Comment: Physician Instructions: Evaluate and treat Consult to Physical Therapy Evaluate & Treat Comment: Physician Instructions: Evaluate and Treat Consult to Speech Therapy Evaluate & Treat Comment: Physician Instructions: Evaluate and treat Discharge provider: Sofya Gonsales MD Summary Hospital Course Discharge Diagnosis: 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 The pt was started on a statin and Plavix. MRI showed a subacute left MCA distribution CVA, in addition to incidentally a large anterior communicating artery aneurysm. Telemetry showed no arrhythmias. Echo was also normal. PT/OT were consulted, and recommended acute rehab vs SNF. The pt remained stable throughout her hospitalization. She was ultimately discharged to [facility]. Exam Vital Signs (past 8 hours): - 06/17/21 07:00 06/17/21 09:41 Temperature 98.2 F Pulse Rate 99 H Respiratory Rate 18 Blood Pressure 134/73 134/73 Pulse Oximetry 98 Oxygen Delivery Method Room Air Oxygen Flow Rate 0 Narrative Exam Narrative: Gen: NAD, sitting comfortably in chair, appears well CV: RRR, grade 2/6 systolic murmur Resp: clear to auscultation bilaterally Abd: soft, nontender, nondistended, normoactive bowel sounds Neuro: CN grossly intact, 5/5 strength bilateral UE, visual song not directly tested Objective Labs Result Diagrams: 06/14/21 14:30 06/14/21 14:30 Labs: Laboratory Results - last 24 hr 06/17/21 10:01 SARS-CoV-2 (PCR) Negative [facility] Medical History Abdominal pain Anxiety (09/16/13) Diverticulosis of large intestine Essential hypertension (02/24/11) History of adenomatous polyp of colon Hypertension Irritable bowel syndrome with diarrhea (09/13/16) Irritable bowel syndrome without diarrhea (05/28/15) Low back pain Lung nodule seen on imaging study (10/03/12) Mixed hyperlipidemia (02/24/11) Osteoporosis (02/24/11) Surgical History H/O colonoscopy History of appendectomy History of foot surgery Hx of appendectomy Social History marital status: number of children: 1 household members: none lives independently: Yes caregiver/support person: Yes (Step daughter) housing: apartment pets and animals: No education level: high school occupational status: other 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 hortencia/anglican: [employer] leisure activities: music, reading and other Smoking Status: Never smoker Tobacco: How many years used: 0 alcohol intake: current substance use type: does not use Discharge Plan Discharge Plan Patient Disposition: SNF Transfer to: [facility] Discharge orders & Medications Prescriptions: New atorvastatin [Lipitor] 20 mg Tablet 20 mg PO BEDTIME Qty: 30 0RF clopidogrel 75 mg Tablet 75 mg PO DAILY Qty: 30 0RF lorazepam 0.5 mg Tablet 0.5 mg PO Q6H PRN (Reason: Anxiety) Qty: 30 0RF Continued multivitamin Tablet 1 tab PO DAILY Qty: 0 0RF Label Comments: previously in computer as 4-6 times a day. need clarification. 10/31/18 calcium carbonate [Calcium 500] 500 mg calcium (1,250 mg) Tablet 500 mg PO DAILY Qty: 0 0RF omeprazole 40 mg capsule,delayed release(DR/EC) 40 mg PO DAILY Qty: 30 5RF fluticasone propionate 50 mcg/actuation spray,suspension 2 spray NASAL BEDTIME PRN (Reason: allergy symptoms) Qty: 16 2RF Rx Instructions: administer into each nostril hyoscyamine sulfate 0.125 mg tablet, sublingual See Rx Instructions .ROUTE .COMPLEX Qty: 45 11RF Dose Instruction: DISSOLVE 1 TABLET UNDER TONGUE UP TO EVERY 2 HOURS FOR CRAMPING/PAIN MAY ALSO SWALLOW, NEEDED FOR ABD PAIN. Rx Instructions: DISSOLVE 1 TABLET UNDER TONGUE UP TO EVERY 2 HOURS FOR CRAMPING/PAIN MAY ALSO SWALLOW, NEEDED FOR ABD PAIN. lisinopril 40 mg tablet 40 mg PO DAILY Qty: 90 1RF amlodipine 5 mg tablet 5 mg PO DAILY Qty: 90 3RF (DME) Disabled Parking Qty: 1 0RF Rx Instructions: Patient qualifies for disabled parking as per the attached form. dicyclomine 20 mg tablet 20 mg PO QID PRN (Reason: stomach cramps) Qty: 90 2RF Metamucil (sugar) Powder 1 tbsp PO DAILY Qty: 1254 0RF acetaminophen 325 mg tablet 500 mg PO TID PRN (Reason: Pain (Scale Score 1-3)) 0RF chlordiazepoxide-clidinium 5-2.5 mg capsule 1 cap PO DAILY Qty: 90 3RF Discontinued lorazepam [Ativan] 0.5 mg tablet 0.5 - 1 mg PO Q6H PRN (Reason: Anxiety) Qty: 20 0RF Follow up/Referrals: Brain Gomez MD [Primary Care Provider] - Diet/Activity/Treatments Diet: Diet as Tolerated and Regular Liquid consistency: Normal/Thin Food texture: Regular [facility] Reason for rehabilitation: Therapy following stroke Rehab type: Physical therapy and Occupational therapy Discharge Data Primary Care Provider: Brain Gomez Quality VTE Deep Vein Thrombosis/Pulmonary Embolism Present on Admission: No
--- NOTE | 2021-06-17 12:37 | PC.NURSE ---
Transferred pt to [facility], report given to Colleen. IV right AC discontinued. Pt transported by [facility] staff in wheelchair/van. All belongings with patient.
--- NOTE | 2021-06-17 12:51 | PT.IPTN ---
Current Diagnoses Cerebral infarction, unspecified (06/14/21) Physical Therapy Treatment Note M2 PT-IP Current Condition Start: 06/15/21 08:17 Freq: NEEDED Status: Discharge Protocol: Document 06/16/21 14:48 SP (Rec: 06/16/21 18:11 SP [id number]) Physical Therapy Current Condition Current Condition Evaluation Date 06/15/21 Treatment Diagnosis L MCA CVA; impaired visual song; R hemiparesis; difficulty in walking Onset Date 06/11/21 M3 PT-IP Subjective Start: 06/15/21 08:17 Freq: NEEDED Status: Discharge Protocol: Document 06/17/21 10:26 ER (Rec: 06/17/21 12:51 ER [id number]) Subjective Physical Therapy Visit Type Type Treatment Note Visit Start Time 10:26 Visit Stop Time 10:44 Total Visit Minutes 20 Notes JJ Claudio lead treatment and provided education under the direct supervision and instruction of STORE MANAGER Kera. Number of STORE MANAGER Visits 3 Physical Therapy Visit Comments Patient Comments pt motiviated to work with therapy. Pt said she feels better, feels like she's getting better. Patient Goals get stronger at rehab before going home. Therapy Pain Assessment Pain Present Pain Present Denied Pain M4 PT-IP Mobility and Gait Start: 06/15/21 08:17 Freq: NEEDED Status: Discharge Protocol: Document 06/17/21 10:26 ER (Rec: 06/17/21 12:51 ER [id number]) PT-Transfer Assessment Sit to and From Stand Sit to and from Stand Contact Guard Assistance,1 Person Assistance,Use of Upper Extremities Equipment Transfer Assistive Device Gait Belt,Front Wheeled Walker Orthotic/Prosthetic Devices or Brace: No Transfers Transfer Destination Chair Transfer Technique ambulated with FWW Transfer Ability Level of Assist Contact Guard Assistance, Minimal Assistance Comments Mobility Comments Pt sitting in chair when arrived. Pt sit>stand with FWW and UE support, and CGA. Pt was able to stand CGA without UE support on FWW to put on mask, ~15 seconds. Pt ambulated ~110 feet in [place] with FWW and CGA plus cues for obstacle avoidance on R, prevent drift to R, standing closer to walker. Pt stand>sit onto chair using FWW, UE support, and CGA for cues reaching back to chair and slow descent. Pt scooted back in chair SBA. Pt. left in chair with chair alarm armed, and call light and all needs within reach. Gait Assessment Gait Gait Assistance Required: Contact Guard Assist,1 Person Assist Distance (Feet) 110 Able to Maintain Weight Bearing Status Yes During Gait Assistive Devices Assistive Device Gait Belt,Front Wheeled Walker Orthotic/Prosthetic Devices or Brace: No Gait Deviations General Gait Pattern Ataxic,Decreased Stride Length ,Decreased Feet Clearance, Flexed Trunk,Lateral Trunk Lean,Wide Based Gait Factors Limiting Gait Function Factors Limiting Gait Function Decreased Activity Tolerance, Decreased Strength,Difficulty Following Directions,Poor Safety Awareness Comments Gait Comments see mobility comments Stair Climbing Assessment Comments Stair Climbing Comments Not assessed due to decrease strength and activity tolerance. Pt reports I don't feel am able to do stairs yet . PT-Balance Assessment Sitting Balance and Reactions Static Sitting Balance Ability Normal Dynamic Sitting Balance Ability Good Standing Balance and Reactions Static Standing Balance Ability Good Dynamic Standing Balance Ability Good Device Used FWW M5 PT-IP Objective Assessments Start: 06/15/21 08:17 Freq: NEEDED Status: Discharge Protocol: Document 06/15/21 09:42 AW (Rec: 06/15/21 11:09 AW [id number]) Orientation Orientation/Cognition Level of Alertness Alert Orientation Name,Place,Situation Language Function Ability No Deficits Noted Safety Awareness Decreased Safety Awareness Comments When asked about driving in her current condition, pt states she believes she would be ok in spite of visual field deficits. Gross Range of Motion Upper Extremity ROM Assessment Within Functional Limits Lower Extremity ROM Assessment Within Functional Limits Strength Upper Extremity Strength Assessment Right Impaired Lower Extremity Strength Assessment Right Impaired Hip 4-/5 Knee 4-/5 Ankle 4/5 Comments Strength Comments LLE grossly 4/5 Coordination Assessment Gross Coordination Gross Coordination Impaired Assessment Finger to Nose Test Minimal Impairment Pronation/Supination Test Minimal Impairment Foot Tapping Test Minimal Impairment Sensation Assessment Sensation Gross Sensation Right UE Impaired,Right LE Impaired Light Touch Impaired Proprioception (Position) Impaired Comments Sensation Comments Pt reports duller light touch sensation on right side (LE more affected). Pt unable to feed management advisor right arm position with eyes closed. Muscle Tone Muscle Tone WNL Yes Other Assessments Other Other Assessments Pt had difficulty following commands for occulomotor testing but smooth pursuits and saccades appeared abnormal . Vestibular screen was grossly normal. M6 PT-IP Treatment Start: 06/15/21 08:17 Freq: NEEDED Status: Discharge Protocol: Document 06/17/21 10:26 ER (Rec: 06/17/21 12:51 ER [id number]) Physical Therapy Treatment Education Education Provided Safety M7 PT-IP Assessment and Plan Start: 06/15/21 08:17 Freq: NEEDED Status: Discharge Protocol: Document 06/17/21 10:26 ER (Rec: 06/17/21 12:51 ER [id number]) PT Summary Assessment and Plan Potential Rehabilitation Potential Good Status of Condition at Evaluation Evolving Summary Impairments Strength,Balance,Coordination, Sensation,Transfers,Gait Progress Towards Goals Progressing Toward Goals,Slow Progress due to Activity Tolerance,Slow Progress - Other Assessment Summary Pt continues to R side neglect , with cues necessary for her to recognize items to R, could 'nt see phone on tray. During ambulation with FWW required CGA for safety cues to scan for object avoidance on R, drifts to the R, and steps outside of walker when turning to R. However, demonstrated improved turn management using FWW, with smaller radius, and ability to preferentially turn to shorter arc of turn in either direction. CGA for most mobility and ambulation. Recommend SNF to improve gait, safety, strength, and balance before returning home. Goals Bed Mobility Goal Independent Transfer Goal Independent,Front Wheeled Walker Gait Goal Standby Assistance,Front Wheel Walker Gait Distance 100 Other Goals - up/down 6 steps with unilateral rail SBA Days to Meet Goals 10 Frequency of Treatment Frequency Of Treatment Twice a Day Treatment Plan Physical Therapy Treatment Plan Bed Mobility Training,Transfer Training,Gait Training, Therapeutic Exercise,Balance Retraining,Discharge Planning, Neuromuscular Re-ed, Coordination Retraining Other Recommendations and Next Treatment safety education; right-side Focus attention (set up environment to encourage awareness of right side); gait training with FWW; dynamic balance Precautions Other Precautions falls risk Recommendations To Nursing Amount of Assist Needed 1 Person Assist Discharge Recommendations PT Discharge Recommendations SNF vs Acute Rehab Transportation Needs at Discharge Private Vehicle,Wheelchair/ Cabulance
== END 2021-06-17 11:45 | DRG 66 ==
LOC: ED 15:43 → AC 16:03
PROVIDERS: Admitting Provider Internal Medicine; Emergency Provider Emergency Medicine; PCP Internal Medicine; Referring Provider Emergency Medicine; Visit Provider Internal Medicine
DX: I63.9 Cerebral infarction, unspecified (principal); I10 Essential (primary) hypertension; H53.451 Other localized visual field defect, right eye; R40.4 Transient alteration of awareness; I67.1 Cerebral aneurysm, nonruptured; K58.9 Irritable bowel syndrome, unspecified; F41.9 Anxiety disorder, unspecified; R29.702 NIHSS score 2; R29.703 NIHSS score 3; Z20.822 Contact with and (suspected) exposure to COVID-19
CPT/HCPCS: 36415; 70450; 70548; 70553; 71045; 80053; 80305; 81003; 85025; 87635; 92507; 92523; 93005; 93306; 94760; 97116; 97162; 97166; 97530; 97535; 99222; 99232; 99238; 99285; C9803; A9579; J1650

== ENCOUNTER → 2021-12-09 17:10 | Outpatient (CLI) | payer MEDICARE, OTHER, SELFPAY ==
[2021-06-15 12:09] VITALS: BMI 18.8
[2021-12-09 18:31] LABS: Appearance Urine UA CLEAR; Bilirubin Urine UA NEGATIVE (NEGATIVE); Color Urine UA YELLOW; Glucose Urine UA NEGATIVE (Negative); Ketones Urine UA NEGATIVE (NEGATIVE); Leukocyte Esterase Urine UA NEGATIVE (NEGATIVE); Nitrite Urine UA NEGATIVE (Negative); Occult Blood Urine UA TRACE-LYSED (Negative); Protein Urine UA NEGATIVE (Negative); Urobilinogen Urine UA 0.2 E.U./dL (0.2)
[2021-12-09 18:36] LABS: pH Urine UA 6.5 (4.5-8.0)
[2021-12-09 19:36] LABS: Bacteria Urine None Seen; Culture Indicated Urine Cult Not Indicated; RBC Urine None Seen (0-5/HPF); Squamous Epithelial Cell Urine None Seen (0-5/HPF); WBC Urine 0-1/HPF (0-5/HPF)
== END ==
PROVIDERS: PCP Internal Medicine; Referring Provider Internal Medicine; Visit Provider Internal Medicine
DX: F41.9 Anxiety disorder, unspecified; I63.412 Cerebral infarction due to embolism of left middle cerebral artery; R41.3 Other amnesia
CPT/HCPCS: 36415; 81001

== ENCOUNTER → 2021-12-10 18:17 | Outpatient (CLI) | payer MEDICARE, OTHER, SELFPAY ==
[2021-06-15 12:09] VITALS: BMI 18.8
--- NOTE | 2021-12-10 18:18 | DI.MRI.S_ITS ---
PROCEDURE: MR HEAD/BRAIN WO/W CON INDICATIONS: Memory Loss/CVA TECHNIQUE: Noncontrast axial T1 spin echo, axial T2 fast spin echo, sagittal and axial FLAIR, coronal T2 fast spin echo, axial gradient echo, axial diffusion and ADC through the brain. After the administration of contrast, axial and coronal 3D VIBE or T1 spin echo with fat saturation through the brain. COMPARISON: [facility], MR, MR STROKE, 06/14/2021, 17:10. FINDINGS: Image quality: Excellent. CSF Spaces: Basal cisterns are patent. No extra-axial fluid collections. Ventricles are normal in size and shape. Brain: Encephalomalacia and gliosis noted in the posterior 3rd of the left MCA territory reflecting old infarct. Generalized atrophy and white matter chronic ischemic change noted as well. Diffusion sequence unremarkable without acute infarct present. No abnormal enhancement in. Large anterior communicating artery aneurysm again noted, similar to the prior Skull and face: Calvarial marrow is normal in signal. Orbits appear normal. Bilateral intra-ocular lens replacements noted. Sinuses: Sinuses and mastoids appear clear. IMPRESSION: 1. Old chronic infarct noted in the posterior 3rd of the left MCA territory. 2. Underlying moderate atrophy and multifocal white matter chronic ischemic change. 3. Large anterior communicating artery aneurysm, stable Approved by: Kip Patel M.D. on 12/12/2021 at 7:24
== END ==
PROVIDERS: PCP Internal Medicine; Referring Provider Internal Medicine; Visit Provider Internal Medicine
DX: R41.3 Other amnesia (principal); F03.90 Unspecified dementia, unspecified severity, without behavioral disturbance, psychotic disturbance, mood disturbance, and anxiety; I69.398 Other sequelae of cerebral infarction; G93.89 Other specified disorders of brain; I67.1 Cerebral aneurysm, nonruptured; F41.9 Anxiety disorder, unspecified
CPT/HCPCS: 70553; A9579

== ENCOUNTER → 2022-03-16 09:39 | Outpatient (CLI) | payer MEDICARE, OTHER, SELFPAY ==
[2021-06-15 12:09] VITALS: BMI 18.8
[2022-03-16 10:42] LABS: Alanine Aminotransferase 12 IU/L (<35); Albumin 3.5 g/dL (3.5-5.0); Alkaline Phosphatase 100 U/L (38-126); Aspartate Aminotransferase 20 IU/L (14-36); BUN Creatinine Ratio 12.7 (6-22); Bilirubin Total 0.4 mg/dL (0.2-1.3); Blood Urea Nitrogen 7 mg/dL (7-17); Calcium 8.5 mg/dL (8.4-10.2); Carbon Dioxide 28 mmol/L (22-32); Chloride 100 mmol/L (98-107); Estimated Glomerular Filt Rate > 60 mL/min (>60); Globulin 3.4 g/dL (1.7-4.1); Glucose 89 mg/dL (80-110); HEMOLYSIS < 15 (0-50); Potassium 3.7 mmol/L (3.4-5.1); Sodium 132 mmol/L (137-145); Total Protein 6.9 g/dL (6.3-8.2)
== END ==
PROVIDERS: PCP Internal Medicine; Referring Provider Internal Medicine; Visit Provider Internal Medicine
DX: E78.2 Mixed hyperlipidemia (principal); I10 Essential (primary) hypertension
CPT/HCPCS: 36415; 80053

== ENCOUNTER 2022-05-21 05:16 | Inpatient (IN) | payer MEDICARE, OTHER, SELFPAY ==
[2021-06-15 12:09] VITALS: BMI 18.8
[2022-05-21] VITALS (18 sets, daily range): BP systolic 96–186; BP diastolic 63–95; PULSE 75–92; RESP 14–19; TEMP 36.4–37; O2SAT 96–100; BMI 16.9; BMI 15.6
--- NOTE | 2022-05-21 05:26 | DI.CT.S_ITS ---
PROCEDURE: CT CHEST ABD PEL WO CON INDICATIONS: Fall/injury/trauma TECHNIQUE: After the administration of oral contrast, 5 mm thick sections acquired from the lung apices to the symphysis pubis. 5 mm thick coronal and sagittal reformats acquired, with additional 7 mm coronal MIP reformats through the lungs. For radiation dose reduction, the following was used: automated exposure control, adjustment of mA and/or kV according to patient size. COMPARISON: [facility], CT, CT ANGIO CHEST ABDOMEN PELVIS, 11/06/2020, 11:57. FINDINGS: Image quality: Good. CHEST: Lungs and pleura: No acute pulmonary opacities. Right middle lobe pulmonary nodule measuring 0.4 cm, (6/154). Distal mucus plugs in the left upper lobe anteriorly, (6/161). A few calcified granulomas. A few calcified granulomas. No pleural effusions or pneumothorax. Central and peripheral airways are patent are normal in caliber. Mediastinum: Heart size is normal. Three-vessel coronary artery calcifications. No pericardial effusion. No mediastinal adenopathy by CT size criteria. Thoracic aorta and central pulmonary arteries are normal in size. Esophagus is normal in caliber. No hiatal hernia. Chest wall: No axillary or supraclavicular adenopathy by size criteria. Thyroid gland is unremarkable. ABDOMEN: Solid organs: Liver is normal in size. Granuloma at the dome. Gallbladder is distended. Small calcified gallstone. Pancreas is normal in contours. Spleen is normal in size. No adrenal nodules. Both kidneys are normal in size, without hydronephrosis. Calcifications at the medulla pyramids. Peritoneum and bowel: Small and large bowel loops are normal in caliber and wall thickness. Prominent stool in the colon. No free fluid or air. Nodes and vessels: No retroperitoneal or mesenteric adenopathy by size criteria. Aorta and inferior vena cava are normal in size. Circumferential calcified atherosclerotic plaque. Miscellaneous: No ventral hernias. PELVIS: Genitourinary: Bladder is distended. Uterine fibroid. Miscellaneous: No inguinal hernias or adenopathy. Bones: Right lateral 5th and 6th rib fractures without displacement, (3/35). Left 3 through 5th rib fractures without displacement, (3/34). No suspicious bony lesions. Right hip fixation. No hip fractures seen. T5 compression fracture is unchanged. T11 and T12 compression fractures are unchanged. IMPRESSION: Evaluation for solid parenchymal organs is limited without IV contrast. 1. Right lateral 5-6th and left 3-5th nondisplaced rib fractures. 2. No pneumothorax or hemothorax. 3. No free fluid is identified in the abdomen or pelvis. 4. Prominent stool in the colon. Diverticulosis. 5. Prior compression fractures at T5, T11, and T12 are unchanged. 6. Gallstone. Medullary nephrocalcinosis. Minor discrepancy with the overnight preliminary interpretation. Nondisplaced rib fractures are identified. Compression fractures are unchanged. Results called to the emergency department and discussed with Dr. Juan Pablo Ram Dictated by: Oswald Bond M.D. on 05/21/2022 at 7:07 Approved by: Oswald Bond M.D. on 05/21/2022 at 8:01
--- NOTE | 2022-05-21 05:27 | DI.CT.S_ITS ---
PROCEDURE: CT CERVICAL SPINE WO CON INDICATIONS: Trauma TECHNIQUE: Noncontrast 3 mm thick sections acquired from the skull base to the T4 level. Sagittal and coronal reformats were then constructed. For radiation dose reduction, the following was used: automated exposure control, adjustment of mA and/or kV according to patient size. COMPARISON: [facility], CT, CT ANGIO HEAD AND NECK, 12/26/2021, 17:02. FINDINGS: Image quality: Excellent. Bones: T5 compression fracture is unchanged. Thoracic kyphosis. Exaggerated lumbar spine lordosis. No acute fractures or dislocations. Moderate degenerative change in the cervical spine demonstrable by joint space loss, osteophytosis, and uncovertebral joint hypertrophy. Posterior disc osteophyte complex at C4-C5, C5-C6, and C6-C7. Moderate central canal narrowing at C4-C5. Visualized superior ribs are intact. Soft tissues: Prevertebral soft tissues are normal in thickness. No paravertebral hematomas. No apical pneumothoraces. IMPRESSION: No acute fracture. T5 compression fracture is unchanged. This report is concordant with the overnight preliminary interpretation. Dictated by: Oswald Bond M.D. on 05/21/2022 at 7:33 Approved by: Oswald Bond M.D. on 05/21/2022 at 7:39
--- NOTE | 2022-05-21 05:27 | DI.CT.S_ITS ---
PROCEDURE: CT HEAD/BRAIN WO CON INDICATIONS: Trauma TECHNIQUE: Noncontrast 4.5 mm thick angled axial sections acquired from the foramen magnum to the vertex, with coronal and sagittal reformats. For radiation dose reduction, the following was used: automated exposure control, adjustment of mA and/or kV according to patient size. COMPARISON: [facility], CT, CT HEAD WITHOUT CONTRAST, 12/26/2021, 13:37. [facility], CT, CT ANGIO HEAD AND NECK, 12/26/2021, 17:02. [facility], MR, MR BRAIN WITHOUT CONTRAST, 12/27/2021, 8:04. [facility], CT, CT HEAD/BRAIN WO CON, 06/14/2021, 14:42. FINDINGS: Image quality: Excellent. CSF spaces: Basal cisterns are patent. No extra-axial fluid collections. Ventricles are normal in size and shape. Brain: No midline shift. Left basal ganglia calcifications. No intracranial masses or hemorrhage. Left parietal hypodensity consistent with remote infarct is similar to 12/26/2021. Periventricular hypodensity consistent with chronic microvascular ischemic disease. Skull and face: Calvarium and visualized facial bones are intact, without suspicious lesions. Sinuses: Visualized sinuses and mastoids are clear. IMPRESSION: 1. No acute intracranial abnormality. 2. 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 This is concordant with the overnight preliminary interpretation. 3. 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 Dictated by: Oswald Bond M.D. on 05/21/2022 at 6:58 Approved by: Oswald Bond M.D. on 05/21/2022 at 7:07
--- NOTE | 2022-05-21 05:28 | ED_ITS ---
HPI - Fall <Boogie Lu MD - Last Filed: 06/02/22 18:09> General Chief Complaint: Trauma Stated Complaint: GLF Time Seen by Provider: 05/21/22 05:25 Source: patient and EMS Mode of arrival: EMS History of Present Illness HPI Narrative: Patient brought in by ambulance from home. She lives at [facility]. It is independent living. She complains of right pelvis/hip pain. EMS reports that there was a wellness check for her at 3:05 a.m. a.m.. She was in her low couch. At 3:50 a.m she called out for help and was found on the ground next to her couch. Patient denies any head pain neck pain or back pain. No limb pain other than right hip/pelvis pain. According to her demographics there is a pulsed form that has been signed. She is no code. Related Data Home Medications Medication Instructions Recorded Confirmed acetaminophen 325 mg tablet 500 mg PO TID PRN Pain (Scale 06/09/20 05/21/22 Score 1-3) aspirin 81 mg tablet,delayed 81 mg PO DAILY 03/15/22 05/21/22 release docusate sodium 100 mg capsule 100 mg PO DAILY 03/15/22 05/21/22 magnesium hydroxide 400 mg/5 mL 2,400 mg PO DAILY PRN takes this 03/15/22 05/21/22 oral suspension (Milk of Magnesia) way at home vitamin no.115-iron 29 1 tab PO DAILY 03/15/22 05/21/22 mg-folic acid 1 mg chewable tablet ( 19) thiamine HCl (vitamin B1) 100 mg 100 mg PO DAILY 03/15/22 05/21/22 tablet Previous Rx's Medication Instructions Recorded amlodipine 5 mg tablet 5 mg PO DAILY #90 tabs 06/11/21 atorvastatin 20 mg tablet (Lipitor) 20 mg PO BEDTIME #90 tabs 07/26/21 clopidogrel 75 mg tablet 75 mg PO DAILY #90 tabs 07/26/21 lisinopril 40 mg tablet 40 mg PO DAILY #90 tabs 10/27/21 citalopram 10 mg tablet 10 mg PO DAILY #30 tabs 12/09/21 quetiapine 25 mg tablet See Rx Instructions .Route 02/28/22 .COMPLEX #360 tabs levetiracetam 100 mg/mL oral 500 mg (5 mL) PO BID #473 mL 03/29/22 solution lorazepam 1 mg tablet 1 mg PO TID PRN agitation #30 tabs 05/24/22 oxycodone 5 mg tablet 5 mg PO Q3H PRN Pain, Moderate 05/24/22 (4-6) #30 tabs Allergies Allergy/AdvReac Type Severity Reaction Status Date / Time lidocaine AdvReac Severe RASH, Verified 04/19/22 11:30 BURNED HER levofloxacin [From LEVAQUIN] AdvReac Unknown dizziness, Verified 04/19/22 11:30 not sure if related or not...08/30/16 Review of Systems <Boogie Lu MD - Last Filed: 06/02/22 18:09> Review of Systems Narrative: GENERAL: Denies chills, fatigue, malaise, fever, sweats. HEENT: Denies sinus pain, ear pain, sore throat RESPIRATORY: Denies dyspnea, cough CARDIOVASCULAR: Denies chest pain, palpitations GASTROINTESTINAL: Denies nausea, vomiting, abdominal pain : Denies dysuria, frequency, hematuria MUSCULOSKELETAL: Positive for muscle or bony pain SKIN: Denies rash, skin lesions NEUROLOGIC: Denies weakness, numbness ROS Unobtainable: All systems reviewed & are unremarkable except as noted in HPI and below Patient History <Boogie Lu MD - Last Filed: 06/02/22 18:09> Medical History Abdominal pain Anxiety (09/16/13) Diverticulosis of large intestine Essential hypertension (02/24/11) History of adenomatous polyp of colon Hypertension Irritable bowel syndrome with diarrhea (09/13/16) Irritable bowel syndrome without diarrhea (05/28/15) Low back pain Lung nodule seen on imaging study (10/03/12) Mixed hyperlipidemia (02/24/11) Osteoporosis (02/24/11) Seizure Surgical History H/O colonoscopy History of appendectomy History of foot surgery Hx of appendectomy Social History marital status: number of children: 1 household members: none lives independently: Yes caregiver/support person: Yes (Step daughter) housing: apartment pets and animals: No education level: high school occupational status: other 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 hortencia/sikh: [employer] leisure activities: music, reading and other Smoking Status: Never smoker Tobacco: How many years used: 0 alcohol intake: current substance use type: does not use Smoking Status: Never smoker alcohol intake frequency: holidays/special occasions only Alcohol type: wine Substance Use Type: does not use Exam <Boogie Lu MD - Last Filed: 06/02/22 18:09> Narrative Exam Narrative: GENERAL: in no distress, not toxic not dyspneic HEAD: Normocephalic. Nontender head scalp face EYES: Pupils equal round No scleral icterus. ENT: Mucous membranes moist. NECK: Trachea midline. No midline tenderness step-off of the cervical thoracic or lumbar spine. CARDIOVASCULAR: Regular rate and rhythm without murmurs RESPIRATORY: Clear to auscultation. Breath sounds equal bilaterally. No wheezes, rales, or rhonchi. GASTROINTESTINAL: Abdomen soft, non-tender EXTREMITIES: No gross deformities. Nontender bilateral upper extremities shoulders elbows wrists with no gross deformities. Examination left lower extremity nontender hip knee and ankle. Examination right lower extremity, tenderness to the right hip. Favors to keep hip flexed and knee flexed as well. Nontender knee and ankle. Foot nontender with strong pedal pulse and light touch intact to foot and toes. BACK: No flank tenderness. Skin exposed. No bruising or skin injury seen NEURO: AOx3. Clear speech no facial droop light touch intact to bilateral face and hands and feet. Strong bilateral anger control counselor SKIN: Warm and dry PSYCH: Not anxious, is cooperative Initial Vital Signs Initial Vital Signs: Vital Signs Temperature 97.6 F 05/21/22 05:21 Pulse Rate 82 05/21/22 05:21 Respiratory Rate 14 05/21/22 05:21 Blood Pressure 186/87 H 05/21/22 05:21 Pulse Oximetry 98 05/21/22 05:21 Oxygen Delivery Method 05/21/22 05:21 <Juan Pablo Ram DO - Last Filed: 05/21/22 09:30> Initial Vital Signs Initial Vital Signs: Vital Signs Temperature 97.6 F 05/21/22 05:21 Pulse Rate 82 05/21/22 05:21 Respiratory Rate 14 05/21/22 05:21 Blood Pressure 186/87 H 05/21/22 05:21 Pulse Oximetry 98 05/21/22 05:21 Oxygen Delivery Method 05/21/22 05:21 Course <Boogie Lu MD - Last Filed: 06/02/22 18:09> Course Course Narrative: May 21, 2022 at 7:00 a.m.. Sign out to Dr. Ram, radiographic images are pending results. Orders Ordered: Discontinued Medications Acetaminophen (Acetaminophen 325 Mg Tablet) 650 mg PO Q6H [facility] Admin: 05/25/22 11:05 Dose: 650 mg Documented By: Admin: 05/25/22 06:23 Dose: 650 mg Documented By: Admin: 05/25/22 02:59 Dose: Not Given Documented By: Admin: 05/24/22 18:12 Dose: 650 mg Documented By: Admin: 05/24/22 13:17 Dose: 650 mg Documented By: Admin: 05/24/22 06:08 Dose: 650 mg Documented By: Admin: 05/23/22 23:04 Dose: 650 mg Documented By: Admin: 05/23/22 17:53 Dose: Not Given Documented By: Admin: 05/23/22 12:53 Dose: 650 mg Documented By: Admin: 05/23/22 05:49 Dose: Not Given Documented By: Admin: 05/23/22 00:03 Dose: 650 mg Documented By: Admin: 05/22/22 16:44 Dose: 650 mg Documented By: Admin: 05/22/22 11:54 Dose: 650 mg Documented By: Admin: 05/22/22 05:55 Dose: 650 mg Documented By: Admin: 05/22/22 00:01 Dose: 650 mg Documented By: Admin: 05/21/22 18:16 Dose: 650 mg Documented By: Admin: 05/21/22 12:29 Dose: 650 mg Documented By: HC Amlodipine Besylate (Amlodipine 5 Mg Tablet) 5 mg PO DAILY [facility] Admin: 05/25/22 11:06 Dose: 5 mg Documented By: Admin: 05/24/22 09:21 Dose: 5 mg Documented By: Admin: 05/23/22 14:59 Dose: Not Given Documented By: Admin: 05/22/22 08:46 Dose: 5 mg Documented By: Atorvastatin Calcium (Atorvastatin 20 Mg Tablet) 20 mg PO BEDTIME [facility] Last Admin: 05/24/22 20:34 Dose: 20 mg Documented By: Admin: 05/23/22 20:29 Dose: 20 mg Documented By: Admin: 05/22/22 21:52 Dose: 20 mg Documented By: Admin: 05/21/22 20:34 Dose: 20 mg Documented By: Citalopram Hydrobromide (Citalopram 10 Mg Tablet) 10 mg PO DAILY [facility] Last Admin: 05/25/22 11:06 Dose: 10 mg Documented By: Admin: 05/24/22 09:21 Dose: 10 mg Documented By: Admin: 05/23/22 09:33 Dose: 10 mg Documented By: [facility] Admin: 05/22/22 08:46 Dose: 10 mg Documented By: Docusate Sodium (Docusate 100 Mg Capsule) 100 mg PO DAILY [facility] Last Admin: 05/24/22 09:30 Dose: Not Given Documented By: Admin: 05/23/22 09:33 Dose: 100 mg Documented By: Admin: 05/22/22 08:45 Dose: 100 mg Documented By: Enoxaparin Sodium (Enoxaparin 30 Mg/0.3 Ml Syringe) 30 mg SUBCUT DAILY [facility] Last Admin: 05/25/22 11:06 Dose: 30 mg Documented By: Admin: 05/24/22 09:21 Dose: 30 mg Documented By: Admin: 05/23/22 09:39 Dose: 30 mg Documented By: [facility] Admin: 05/22/22 08:46 Dose: 30 mg Documented By: Hydromorphone HCl (Hydromorphone 0.5 Mg Inj) 0.5 mg IV Q4H PRN PRN Reason: Pain, Moderate (4-6) Sodium Chloride (Normal Saline 0.9%) 1,000 mls @ 125 mls/hr IV CONT [facility] Stop: 05/23/22 05:59 Last Admin: 05/23/22 01:55 Dose: 125 mls/hr Documented By: Infusion: 05/23/22 01:55 Dose: 125 mls/hr Documented By: Admin: 05/22/22 18:44 Dose: 125 mls/hr Documented By: PEDRO PABLO Ibuprofen (Ibuprofen 600 Mg Tablet) 600 mg PO Q6H [facility] Last Admin: 05/23/22 05:50 Dose: Not Given Documented By: Admin: 05/23/22 00:04 Dose: 600 mg Documented By: Admin: 05/22/22 16:44 Dose: 600 mg Documented By: Admin: 05/22/22 11:54 Dose: 600 mg Documented By: Admin: 05/22/22 05:56 Dose: 600 mg Documented By: Admin: 05/22/22 00:01 Dose: 600 mg Documented By: Admin: 05/21/22 18:17 Dose: 600 mg Documented By: Admin: 05/21/22 12:30 Dose: 600 mg Documented By: SARTHAK Ibuprofen (Ibuprofen 600 Mg Tablet) 600 mg PO Q6H PRN PRN Reason: Pain, Moderate (4-6) Last Admin: 05/24/22 13:18 Dose: 600 mg Documented By: Admin: 05/23/22 15:17 Dose: 600 mg Documented By: KAY Levetiracetam (Levetiracetam 250 Mg Tablet) 500 mg PO BID [facility] Last Admin: 05/25/22 11:06 Dose: 500 mg Documented By: Admin: 05/24/22 20:33 Dose: 500 mg Documented By: Admin: 05/24/22 09:21 Dose: 500 mg Documented By: Admin: 05/23/22 20:29 Dose: 500 mg Documented By: Admin: 05/23/22 09:33 Dose: 500 mg Documented By: Admin: 05/22/22 21:52 Dose: 500 mg Documented By: Admin: 05/22/22 08:46 Dose: 500 mg Documented By: Admin: 05/21/22 20:34 Dose: 500 mg Documented By: Lisinopril (Lisinopril 20 Mg Tablet) 40 mg PO DAILY [facility] Last Admin: 05/25/22 11:06 Dose: 40 mg Documented By: Admin: 05/24/22 09:21 Dose: 40 mg Documented By: Admin: 05/23/22 15:00 Dose: Not Given Documented By: Admin: 05/22/22 08:45 Dose: 40 mg Documented By: MS Lorazepam (Lorazepam 2 Mg/Ml Inj) 1 mg IV Q4HR PRN PRN Reason: Agitation Last Admin: 05/24/22 22:00 Dose: 1 mg Documented By: AM Naloxone HCl (Naloxone 0.4 Mg/Ml Vial) 0.2 mg IV Q2MIN PRN PRN Reason: Opiate Reversal Oxycodone HCl (Oxycodone Ir 5 Mg Tablet) 5 mg PO Q3H PRN PRN Reason: Pain, Moderate (4-6) Last Admin: 05/25/22 12:19 Dose: 5 mg Documented By: Admin: 05/24/22 13:18 Dose: 5 mg Documented By: Admin: 05/23/22 15:17 Dose: 5 mg Documented By: Admin: 05/23/22 09:32 Dose: 5 mg Documented By: Admin: 05/23/22 02:17 Dose: 5 mg Documented By: Admin: 05/22/22 08:46 Dose: 5 mg Documented By: Admin: 05/21/22 18:17 Dose: 5 mg Documented By: Admin: 05/21/22 12:29 Dose: 5 mg Documented By: HC Quetiapine Fumarate (Quetiapine 25 Mg Tablet) 25 mg PO DAILY [facility] Last Admin: 05/25/22 11:07 Dose: 25 mg Documented By: Admin: 05/24/22 09:21 Dose: 25 mg Documented By: Admin: 05/23/22 09:33 Dose: 25 mg Documented By: Admin: 05/22/22 08:46 Dose: 25 mg Documented By: Admin: 05/21/22 12:30 Dose: 25 mg Documented By: HC Quetiapine Fumarate (Quetiapine 25 Mg Tablet) 50 mg PO BEDTIME [facility] Last Admin: 05/24/22 20:33 Dose: 50 mg Documented By: Admin: 05/23/22 20:29 Dose: 50 mg Documented By: Admin: 05/22/22 21:52 Dose: 50 mg Documented By: Admin: 05/21/22 20:35 Dose: 50 mg Documented By: Sennosides (Sennosides 8.6 Mg Tablet) 8.6 mg PO BEDTIME [facility] Last Admin: 05/24/22 20:34 Dose: 8.6 mg Documented By: AM Sodium Chloride (Sodium Chloride 0.9% Flush) 10 ml IV PRN PRN PRN Reason: Flush Sodium Chloride (Sodium Chloride 0.9% Flush) 10 ml IV BID YUSUF Last Admin: 05/25/22 11:07 Dose: 10 ml Documented By: Admin: 05/24/22 20:34 Dose: 10 ml Documented By: Admin: 05/24/22 09:22 Dose: 10 ml Documented By: Admin: 05/23/22 23:04 Dose: 10 ml Documented By: Admin: 05/23/22 09:39 Dose: 10 ml Documented By: Admin: 05/22/22 21:52 Dose: 10 ml Documented By: AM Vital Signs Vital signs: Vital Signs - 8 hr 05/21/22 05:21 05/21/22 05:41 05/21/22 05:23 Temperature 97.6 F Pulse Rate 82 92 H 82 Respiratory Rate 14 18 Blood Pressure 186/87 H 165/95 H Pulse Oximetry 98 96 98 Oxygen Delivery Method Room Air Room Air 05/21/22 05:30 05/21/22 05:30 05/21/22 05:56 Temperature Pulse Rate 83 Respiratory Rate Blood Pressure 172/91 H 168/77 H Pulse Oximetry 99 Oxygen Delivery Method 05/21/22 05:56 05/21/22 06:00 05/21/22 06:00 Temperature Pulse Rate 78 77 Respiratory Rate Blood Pressure 152/70 H Pulse Oximetry 98 99 Oxygen Delivery Method 05/21/22 06:30 05/21/22 06:30 05/21/22 07:00 Temperature Pulse Rate 75 Respiratory Rate Blood Pressure 147/76 H 141/74 H Pulse Oximetry 99 Oxygen Delivery Method 05/21/22 07:00 05/21/22 07:30 05/21/22 07:30 Temperature Pulse Rate 75 83 Respiratory Rate Blood Pressure 136/77 Pulse Oximetry 99 100 Oxygen Delivery Method 05/21/22 08:00 05/21/22 08:00 05/21/22 08:30 Temperature Pulse Rate 85 Respiratory Rate Blood Pressure 170/89 H 169/91 H Pulse Oximetry 99 Oxygen Delivery Method 05/21/22 08:30 05/21/22 09:00 05/21/22 09:00 Temperature Pulse Rate 87 88 Respiratory Rate Blood Pressure 165/81 H Pulse Oximetry 100 100 Oxygen Delivery Method <Juan Pablo Ram, DO - Last Filed: 05/21/22 09:30> Course Course Narrative: May 21, 2022 at 7:00 a.m.. Sign out to Dr. Ram, radiographic images are pending results. [0700] (Yo) Patient received in sign out from Dr. Gomez]. I have reviewed the clinical course and performed an independent history and physical exam. Orders Ordered: Discontinued Medications Acetaminophen (Acetaminophen 325 Mg Tablet) 650 mg PO Q6H [facility] Last Admin: 05/25/22 11:05 Dose: 650 mg Documented By: Admin: 05/25/22 06:23 Dose: 650 mg Documented By: Admin: 05/25/22 02:59 Dose: Not Given Documented By: Admin: 05/24/22 18:12 Dose: 650 mg Documented By: Admin: 05/24/22 13:17 Dose: 650 mg Documented By: Admin: 05/24/22 06:08 Dose: 650 mg Documented By: Admin: 05/23/22 23:04 Dose: 650 mg Documented By: Admin: 05/23/22 17:53 Dose: Not Given Documented By: Admin: 05/23/22 12:53 Dose: 650 mg Documented By: Admin: 05/23/22 05:49 Dose: Not Given Documented By: Admin: 05/23/22 00:03 Dose: 650 mg Documented By: Admin: 05/22/22 16:44 Dose: 650 mg Documented By: Admin: 05/22/22 11:54 Dose: 650 mg Documented By: Admin: 05/22/22 05:55 Dose: 650 mg Documented By: Admin: 05/22/22 00:01 Dose: 650 mg Documented By: Admin: 05/21/22 18:16 Dose: 650 mg Documented By: Admin: 05/21/22 12:29 Dose: 650 mg Documented By: HC Amlodipine Besylate (Amlodipine 5 Mg Tablet) 5 mg PO DAILY [facility] Last Admin: 05/25/22 11:06 Dose: 5 mg Documented By: Admin: 05/24/22 09:21 Dose: 5 mg Documented By: Admin: 05/23/22 14:59 Dose: Not Given Documented By: Admin: 05/22/22 08:46 Dose: 5 mg Documented By: Atorvastatin Calcium (Atorvastatin 20 Mg Tablet) 20 mg PO BEDTIME [facility] Last Admin: 05/24/22 20:34 Dose: 20 mg Documented By: Admin: 05/23/22 20:29 Dose: 20 mg Documented By: Admin: 05/22/22 21:52 Dose: 20 mg Documented By: Admin: 05/21/22 20:34 Dose: 20 mg Documented By: Citalopram Hydrobromide (Citalopram 10 Mg Tablet) 10 mg PO DAILY [facility] Last Admin: 05/25/22 11:06 Dose: 10 mg Documented By: Admin: 05/24/22 09:21 Dose: 10 mg Documented By: Admin: 05/23/22 09:33 Dose: 10 mg Documented By: [facility] Admin: 05/22/22 08:46 Dose: 10 mg Documented By: Docusate Sodium (Docusate 100 Mg Capsule) 100 mg PO DAILY [facility] Last Admin: 05/24/22 09:30 Dose: Not Given Documented By: Admin: 05/23/22 09:33 Dose: 100 mg Documented By: [facility] Admin: 05/22/22 08:45 Dose: 100 mg Documented By: Enoxaparin Sodium (Enoxaparin 30 Mg/0.3 Ml Syringe) 30 mg SUBCUT DAILY [facility] Last Admin: 05/25/22 11:06 Dose: 30 mg Documented By: Admin: 05/24/22 09:21 Dose: 30 mg Documented By: Admin: 05/23/22 09:39 Dose: 30 mg Documented By: [facility] Admin: 05/22/22 08:46 Dose: 30 mg Documented By: Hydromorphone HCl (Hydromorphone 0.5 Mg Inj) 0.5 mg IV Q4H PRN PRN Reason: Pain, Moderate (4-6) Sodium Chloride (Normal Saline 0.9%) 1,000 mls @ 125 mls/hr IV CONT [facility] Stop: 05/23/22 05:59 Last Admin: 05/23/22 01:55 Dose: 125 mls/hr Documented By: Infusion: 05/23/22 01:55 Dose: 125 mls/hr Documented By: Admin: 05/22/22 18:44 Dose: 125 mls/hr Documented By: PEDRO PABLO Ibuprofen (Ibuprofen 600 Mg Tablet) 600 mg PO Q6H [facility] Last Admin: 05/23/22 05:50 Dose: Not Given Documented By: Admin: 05/23/22 00:04 Dose: 600 mg Documented By: Admin: 05/22/22 16:44 Dose: 600 mg Documented By: Admin: 05/22/22 11:54 Dose: 600 mg Documented By: Admin: 05/22/22 05:56 Dose: 600 mg Documented By: Admin: 05/22/22 00:01 Dose: 600 mg Documented By: Admin: 05/21/22 18:17 Dose: 600 mg Documented By: Admin: 05/21/22 12:30 Dose: 600 mg Documented By: SARTHAK Ibuprofen (Ibuprofen 600 Mg Tablet) 600 mg PO Q6H PRN PRN Reason: Pain, Moderate (4-6) Last Admin: 05/24/22 13:18 Dose: 600 mg Documented By: Admin: 05/23/22 15:17 Dose: 600 mg Documented By: KAY Levetiracetam (Levetiracetam 250 Mg Tablet) 500 mg PO BID [facility] Last Admin: 05/25/22 11:06 Dose: 500 mg Documented By: Admin: 05/24/22 20:33 Dose: 500 mg Documented By: Admin: 05/24/22 09:21 Dose: 500 mg Documented By: CEKishore Admin: 05/23/22 20:29 Dose: 500 mg Documented By: Admin: 05/23/22 09:33 Dose: 500 mg Documented By: Admin: 05/22/22 21:52 Dose: 500 mg Documented By: Admin: 05/22/22 08:46 Dose: 500 mg Documented By: Admin: 05/21/22 20:34 Dose: 500 mg Documented By: Lisinopril (Lisinopril 20 Mg Tablet) 40 mg PO DAILY [facility] Last Admin: 05/25/22 11:06 Dose: 40 mg Documented By: Admin: 05/24/22 09:21 Dose: 40 mg Documented By: Admin: 05/23/22 15:00 Dose: Not Given Documented By: Admin: 05/22/22 08:45 Dose: 40 mg Documented By: Lorazepam (Lorazepam 2 Mg/Ml Inj) 1 mg IV Q4HR PRN PRN Reason: Agitation Last Admin: 05/24/22 22:00 Dose: 1 mg Documented By: AM Naloxone HCl (Naloxone 0.4 Mg/Ml Vial) 0.2 mg IV Q2MIN PRN PRN Reason: Opiate Reversal Oxycodone HCl (Oxycodone Ir 5 Mg Tablet) 5 mg PO Q3H PRN PRN Reason: Pain, Moderate (4-6) Last Admin: 05/25/22 12:19 Dose: 5 mg Documented By: Admin: 05/24/22 13:18 Dose: 5 mg Documented By: Admin: 05/23/22 15:17 Dose: 5 mg Documented By: Admin: 05/23/22 09:32 Dose: 5 mg Documented By: Admin: 05/23/22 02:17 Dose: 5 mg Documented By: Admin: 05/22/22 08:46 Dose: 5 mg Documented By: Admin: 05/21/22 18:17 Dose: 5 mg Documented By: Admin: 05/21/22 12:29 Dose: 5 mg Documented By: SARTHAK Quetiapine Fumarate (Quetiapine 25 Mg Tablet) 25 mg PO DAILY [facility] Last Admin: 05/25/22 11:07 Dose: 25 mg Documented By: Admin: 05/24/22 09:21 Dose: 25 mg Documented By: Admin: 05/23/22 09:33 Dose: 25 mg Documented By: Admin: 05/22/22 08:46 Dose: 25 mg Documented By: Admin: 05/21/22 12:30 Dose: 25 mg Documented By: SARTHAK Quetiapine Fumarate (Quetiapine 25 Mg Tablet) 50 mg PO BEDTIME [facility] Last Admin: 05/24/22 20:33 Dose: 50 mg Documented By: Admin: 05/23/22 20:29 Dose: 50 mg Documented By: Admin: 05/22/22 21:52 Dose: 50 mg Documented By: Admin: 05/21/22 20:35 Dose: 50 mg Documented By: Seneliazarsides (Sennosides 8.6 Mg Tablet) 8.6 mg PO BEDTIME [facility] Last Admin: 05/24/22 20:34 Dose: 8.6 mg Documented By: AM Sodium Chloride (Sodium Chloride 0.9% Flush) 10 ml IV PRN PRN PRN Reason: Flush Sodium Chloride (Sodium Chloride 0.9% Flush) 10 ml IV BID YUSUF Last Admin: 05/25/22 11:07 Dose: 10 ml Documented By: Admin: 05/24/22 20:34 Dose: 10 ml Documented By: Admin: 05/24/22 09:22 Dose: 10 ml Documented By: Admin: 05/23/22 23:04 Dose: 10 ml Documented By: Admin: 05/23/22 09:39 Dose: 10 ml Documented By: Admin: 05/22/22 21:52 Dose: 10 ml Documented By: AM Consultations Consultation #1: Discussed with Dr. Hong (trauma call), he is happy to be involved in patient's care supervisor electric motor testing Consultation #2: Dr. Major happy to accept patient on behalf of Dr. Gomez Vital Signs Vital signs: Vital Signs - 8 hr 05/21/22 05:21 05/21/22 05:41 05/21/22 05:23 Temperature 97.6 F Pulse Rate 82 92 H 82 Respiratory Rate 14 18 Blood Pressure 186/87 H 165/95 H Pulse Oximetry 98 96 98 Oxygen Delivery Method Room Air Room Air 05/21/22 05:30 05/21/22 05:30 05/21/22 05:56 Temperature Pulse Rate 83 Respiratory Rate Blood Pressure 172/91 H 168/77 H Pulse Oximetry 99 Oxygen Delivery Method 05/21/22 05:56 05/21/22 06:00 05/21/22 06:00 Temperature Pulse Rate 78 77 Respiratory Rate Blood Pressure 152/70 H Pulse Oximetry 98 99 Oxygen Delivery Method 05/21/22 06:30 05/21/22 06:30 05/21/22 07:00 Temperature Pulse Rate 75 Respiratory Rate Blood Pressure 147/76 H 141/74 H Pulse Oximetry 99 Oxygen Delivery Method 05/21/22 07:00 05/21/22 07:30 05/21/22 07:30 Temperature Pulse Rate 75 83 Respiratory Rate Blood Pressure 136/77 Pulse Oximetry 99 100 Oxygen Delivery Method 05/21/22 08:00 05/21/22 08:00 05/21/22 08:30 Temperature Pulse Rate 85 Respiratory Rate Blood Pressure 170/89 H 169/91 H Pulse Oximetry 99 Oxygen Delivery Method 05/21/22 08:30 05/21/22 09:00 05/21/22 09:00 Temperature Pulse Rate 87 88 Respiratory Rate Blood Pressure 165/81 H Pulse Oximetry 100 100 Oxygen Delivery Method MDM - Fall <Boogie Lu MD - Last Filed: 06/02/22 18:09> Differential Diagnosis Differential diagnosis: Likely other (Pelvis fracture hip fracture contusion) Lab Data Result diagrams: 05/23/22 05:02 05/23/22 05:02 Labs: Lab Results 05/21/22 05/21/22 05/21/22 Range/Units 05:38 05:38 09:47 WBC 12.2 H (4.5-11.0) X10^3/uL RBC 5.28 H (4.0-5.2) X10^6/uL Hgb 14.0 (12.0-16.0) g/dL Hct 42.0 (36-46) % MCV 79.6 L (80-100) fL MCH 26.5 (26-34) PG MCHC 33.3 (30-36) % RDW 15.4 H (11.6-14.8) % Plt Count 302 (150-400) X10^3/uL Neut % (Auto) 88.5 H (50-75) % Lymph % (Auto) 3.0 L (25-40) % Crockett % (Auto) 7.7 (3-14) % Eos % (Auto) 0.1 L (2-4) % Baso % (Auto) 0.7 (0-2) % Neut # (Auto) 92462 H (1695-0719) /uL Lymph # (Auto) 400 L (5806-2999) /uL Crockett # (Auto) 900 (0-900) /uL Eos # (Auto) 0 (0-450) /uL Baso # (Auto) 100 (0-100) /uL Sodium 132 L (137-145) mmol/L Potassium 4.2 (3.4-5.1) mmol/L Chloride 98 (98-107) mmol/L Carbon Dioxide 26 (22-32) mmol/L BUN 9 (7-17) mg/dL Creatinine 0.46 L (0.52-1.04) mg/dL Estimated GFR > 60 (>60) mL/min BUN/Creatinine Ratio 19.6 (6-22) Glucose 123 H (80-110) mg/dL Calcium 9.1 (8.4-10.2) mg/dL Total Bilirubin 0.8 (0.2-1.3) mg/dL AST 27 (14-36) IU/L ALT 20 (<35) IU/L Alkaline Phosphatase 131 H (38-126) U/L Total Protein 8.8 H (6.3-8.2) g/dL Albumin 4.7 (3.5-5.0) g/dL Globulin 4.1 (1.7-4.1) g/dL Albumin/Globulin Ratio 1.1 (1.0-2.8) SARS-CoV-2 (PCR) Negative (Negative) <Juan Pablo Ram, DO - Last Filed: 05/21/22 09:30> Lab Data Labs: Lab Results 05/21/22 05/21/22 05/21/22 Range/Units 05:38 05:38 09:47 WBC 12.2 H (4.5-11.0) X10^3/uL RBC 5.28 H (4.0-5.2) X10^6/uL Hgb 14.0 (12.0-16.0) g/dL Hct 42.0 (36-46) % MCV 79.6 L (80-100) fL MCH 26.5 (26-34) PG MCHC 33.3 (30-36) % RDW 15.4 H (11.6-14.8) % Plt Count 302 (150-400) X10^3/uL Neut % (Auto) 88.5 H (50-75) % Lymph % (Auto) 3.0 L (25-40) % Crockett % (Auto) 7.7 (3-14) % Eos % (Auto) 0.1 L (2-4) % Baso % (Auto) 0.7 (0-2) % Neut # (Auto) 13021 H (0743-8859) /uL Lymph # (Auto) 400 L (9047-1297) /uL Crockett # (Auto) 900 (0-900) /uL Eos # (Auto) 0 (0-450) /uL Baso # (Auto) 100 (0-100) /uL Sodium 132 L (137-145) mmol/L Potassium 4.2 (3.4-5.1) mmol/L Chloride 98 (98-107) mmol/L Carbon Dioxide 26 (22-32) mmol/L BUN 9 (7-17) mg/dL Creatinine 0.46 L (0.52-1.04) mg/dL Estimated GFR > 60 (>60) mL/min BUN/Creatinine Ratio 19.6 (6-22) Glucose 123 H (80-110) mg/dL Calcium 9.1 (8.4-10.2) mg/dL Total Bilirubin 0.8 (0.2-1.3) mg/dL AST 27 (14-36) IU/L ALT 20 (<35) IU/L Alkaline Phosphatase 131 H (38-126) U/L Total Protein 8.8 H (6.3-8.2) g/dL Albumin 4.7 (3.5-5.0) g/dL Globulin 4.1 (1.7-4.1) g/dL Albumin/Globulin Ratio 1.1 (1.0-2.8) SARS-CoV-2 (PCR) Negative (Negative) Imaging Data CT scan - head: Radiologist's Impression: [address] [address] [address] Scan Report Signed Patient: Mahsa Storey MR#: [id number] : 1935 Acct:[id number] Age/Sex: 87 / F Date of Service: 05/21/22 Loc: ED Accession Number: [id number] ?? Procedure: CT head/brain wo con Ordering Provider: Boogie Lu MD PROCEDURE:? CT HEAD/BRAIN WO CON ? INDICATIONS:? Trauma ? TECHNIQUE:? Noncontrast 4.5 mm thick angled axial sections acquired from the foramen magnum to the vertex, with coronal and sagittal reformats.? For radiation dose reduction, the following was used:? automated exposure control, adjustment of mA and/or kV according to patient size.? ? COMPARISON:? [facility], CT, CT HEAD WITHOUT CONTRAST, 12/26/2021, 13:37.? [facility], CT, CT ANGIO HEAD AND NECK, 12/26/2021, 17:02.? [facility], MR, MR BRAIN WITHOUT CONTRAST, 12/27/2021, 8:04.? [facility], CT, CT HEAD/BRAIN WO CON, 06/14/2021, 14:42. ? FINDINGS:? Image quality:? Excellent.? ? CSF spaces:? Basal cisterns are patent.? No extra-axial fluid collections.? Ventricles are normal in size and shape.? ? Brain:? No midline shift.? Left basal ganglia calcifications.? No intracranial masses or hemorrhage.? Left parietal hypodensity consistent with remote infarct is similar to 12/26/2021.? Periventricular hypodensity consistent with chronic microvascular ischemic disease. ? Skull and face:? Calvarium and visualized facial bones are intact, without suspicious lesions.? ? Sinuses:? Visualized sinuses and mastoids are clear.? ? IMPRESSION:? 1. No acute intracranial abnormality. ? 2. 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 ? This is concordant with the overnight preliminary interpretation. ? 3. 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 ? ? Dictated by: Oswald Bond M.D. on 05/21/2022 at 6:58 ? ? Approved by: Oswald Bond M.D. on 05/21/2022 at 7:07 ? CT - cervical spine: Radiologist's Impression: Close Femur X-Ray (Signed) Call,Oswald - 05/21/22 Hip X-Ray (Signed) Call,Oswald - 05/21/[address] (Signed) Call,Oswald - 05/21/[address] (Signed) Call,Oswald - 05/21/22 Chest/Abdomen/Pelvis CT (Signed) Call,Oswald - 05/21/22 Brain MRI (Signed) Kip Patel - 12/10/21 Echocardiogram Ultrasound (Signed) Cordell Mccrary - 06/15/21 Telemetry Strips 06/14/21 Brain MRI (Signed) Kip Patel - 06/14/21 EKG Rpt. 06/14/[address] (Signed) Fidel Whitmore - 06/14/21 Chest X-Ray (Signed) Fidel Whitmore - 06/14/21 Abdomen/Pelvis CT (Signed) Pawel Zacarias - 06/10/21 Abdomen/Pelvis CT (Signed) Cristiano Mccauley - 04/15/21 Chest X-Ray (Signed) Cristiano Mccauley - 03/19/21 Hip X-Ray (Signed) Fidel Whitmore - 12/20/20 Chest/Abdomen/Pelvis CTA (Signed) Ga Magallanes - 11/06/20 Abdominal Arterial Study US (Signed) Pawel Zacarias - 10/30/20 Lumbar Spine X-Ray (Signed) Rey Sifuentes - 02/18/20 Abdomen/Pelvis CT (Signed) DoverDannielleLavell - 11/22/19 Vascular Ultrasound (Signed) Fidel Whitmore - 10/21/19 Hip X-Ray (Signed) Del Coyne - 10/10/19 Hip X-Ray (Signed) ZacariasPawel - 09/21/19 Hip X-Ray (Signed) ZacariasPawel - 09/21/19 Knee X-Ray (Signed) ResendizKita - 09/20/19 Chest X-Ray (Signed) Resendiz,Kita - 09/20/19 Hip X-Ray (Signed) Resendiz,Kita - 09/20/19 Chest X-Ray (Signed) Alen Mauro - 09/15/19 Abdomen/Pelvis CT (Signed) Alen Mauro - 11/01/18 Telemetry Strips 11/01/18 Abdomen/Pelvis CT (Signed) Pawel Zacarias - 10/17/18 Abdomen Ultrasound (Signed) Del Coyne - 10/17/18 Abdomen/Pelvis CT (Signed) Kristie Kenny - 03/24/18 Telemetry Strips 03/24/18 Abdomen/Pelvis CT (Signed) Del Coyne - 03/13/18 Chest/Abdomen X-ray (Signed) Pilar Grimes - 03/13/18 KUB X-Ray (Signed) Anthony Altman - 03/10/18 Telemetry Strips 12/28/17 Abdomen/Pelvis CT (Signed) Del Coyne - 12/13/17 Telemetry Strips 04/01/17 EKG Rpt. 04/01/[address] [address] [address] Scan Report Signed Patient: Mahsa Storey MR#: [id number] : 1935 Acct:[id number] Age/Sex: 87 / F Date of Service: 05/21/22 Loc: ED Accession Number: [id number] ?? Procedure: CT cervical spine wo con Ordering Provider: Boogie Lu MD PROCEDURE:? CT CERVICAL SPINE WO CON ? INDICATIONS:? Trauma ? TECHNIQUE:? Noncontrast 3 mm thick sections acquired from the skull base to the T4 level.? Sagittal and coronal reformats were then constructed.? For radiation dose reduction, the following was used:? automated exposure control, adjustment of mA and/or kV according to patient size.? ? COMPARISON:? [facility], CT, CT ANGIO HEAD AND NECK, 12/26/2021, 17:02. ? FINDINGS:? Image quality:? Excellent.? ? Bones:? T5 compression fracture is unchanged.? Thoracic kyphosis.? Exaggerated lumbar spine lordosis.? No acute fractures or dislocations.? Moderate degenerative change in the cervical spine demonstrable by joint space loss, osteophytosis, and unco vertebral joint hypertrophy.? Posterior disc osteophyte complex at C4-C5, C5-C6, and C6-C7.? Moderate central canal narrowing at C4-C5.? Visualized superior ribs are intact.? ? Soft tissues:? Prevertebral soft tissues are normal in thickness.? No paravertebral hematomas.? No apical pneumothoraces.? ? ? IMPRESSION:? No acute fracture. ? T5 compression fracture is unchanged. ? ? This report is concordant with the overnight preliminary interpretation. ? ? ? Dictated by: Oswald Bond M.D. on 05/21/2022 at 7:33 ? ? Approved by: Oswald Bond M.D. on 05/21/2022 at 7:39 ? CT scan - chest: Radiologist's Impression: [place] [address] CT Scan Report Signed Patient: Mahsa Storey MR#: [id number] : 1935 Acct:[id number] Age/Sex: 87 / F Date of Service: 05/21/22 Loc: ED Accession Number: [id number] ?? Procedure: CT chest abd pel wo con Ordering Provider: Boogie Lu MD PROCEDURE:? CT CHEST ABD PEL WO CON ? INDICATIONS:? Fall/injury/trauma ? TECHNIQUE:? After the administration of oral contrast, 5 mm thick sections acquired from the lung apices to the symphysis pubis.? 5 mm thick coronal and sagittal reformats acquired, with additional 7 mm coronal MIP reformats through the lungs.? For radiation dose reduction, the following was used:? automated exposure control, adjustment of mA and/or kV according to patient size.? ? COMPARISON:? [facility], CT, CT ANGIO CHEST ABDOMEN PELVIS, 11/06/2020, 11:57. ? FINDINGS:? Image quality:? Good.? ? CHEST:? Lungs and pleura:? No acute pulmonary opacities.? Right middle lobe pulmonary nodule measuring 0.4 cm, (154).? Distal mucus plugs in the left upper lobe anteriorly, (/161).? A few calcified granulomas.? A few calcified granulomas.? No pleural effusions or pneumothorax.? Central and peripheral airways are patent are normal in caliber.? ? Mediastinum:? Heart size is normal.? Three-vessel coronary artery eddie cifications.? No pericardial effusion.? No mediastinal adenopathy by CT size criteria.? Thoracic aorta and central pulmonary arteries are normal in size.? Esophagus is normal in caliber.? No hiatal hernia.? ? Chest wall:? No axillary or supraclavicular adenopathy by size criteria.? Thyroid gland is unremarkable.? ? ? ABDOMEN:? Solid organs:? Liver is normal in size.? Granuloma at the dome.? Gallbladder is distended.? Small calcified gallstone.? Pancreas is normal in contours.? Spleen is normal in size.? No adrenal nodules.? Both kidneys are normal in size, without hydronephrosis.? Calcifications at the medulla pyramids. ? Peritoneum and bowel:? Small and large bowel loops are normal in caliber and wall thickness.? Prominent stool in the colon.? No free fluid or air.? ? Nodes and vessels:? No retroperitoneal or mesenteric adenopathy by size criteria.? Aorta and inferior vena cava are normal in size.? Circumferential calcified atherosclerotic plaque.? ? Miscellaneous:? No ventral hernias.? ? ? PELVIS:? Genitourinary:? Bladder is distended.? Uterine fibroid.? ? Miscellaneous:? No inguinal hernias or adenopathy.? ? Bones:? Right lateral 5th and 6th rib fractures without displacement, (335).? Left 3 through 5th rib fractures without displacement, (334).? No suspicious bony lesions.? Right hip fixation.? No hip fractures seen.? T5 compression fracture is unchanged.? T11 and T12 compression fractures are unchanged. ? IMPRESSION:? Evaluation for solid parenchymal organs is limited without IV contrast. ? 1. Right lateral 5-6th and left 3-5th nondisplaced rib fractures. ? 2. No pneumothorax or hemothorax. ? 3. No free fluid is identified in the abdomen or pelvis. ? 4. Prominent stool in the colon.? Diverticulosis. ? 5. Prior compression fractures at T5, T11, and T12 are unchanged.? ? 6. Gallstone.? Medullary nephrocalcinosis.? ? Minor discrepancy with the overnight preliminary interpretation.? Nondisplaced rib fractures are identified. Compression fractures are unchanged.? ? Results called to the emergency department and discussed with Dr. Juan Pablo Ram ? Dictated by: Oswald Bond M.D. on 05/21/2022 at 7:07 ? ? Approved by: Oswald Bond M.D. on 05/21/2022 at 8:01 ? CT scan - abdomen/pelvis: Radiologist's Impression: see above FEmur: Radiologist's Impression: [place] [address] XRay Report Signed Patient: Mahsa Storey MR#: [id number] : 1935 Acct:[id number] Age/Sex: 87 / F Date of Service: 05/21/22 Loc: ED Accession Number: [id number] ?? Procedure: XR femur RT min 2V Ordering Provider: Boogie Lu MD PROCEDURE:? XR FEMUR RT MIN 2V ? INDICATIONS:? pain/fall ? TECHNIQUE:? 5 views of the femur were acquired.? ? COMPARISON:? [facility], CR, XR FEMUR 2+ VIEWS RIGHT, 05/19/2022, 7:53.? [facility], CT, CT KNEE RIGHT WITHOUT CONTRAST, 12/29/2021, 23:41.? [facility], CR, XR HIP W PEL IF DONE RT 2V, 05/21/2022, 6:59. ? FINDINGS:? ? Bones:? Right femur intramedullary nail with screw fixation is stable.? ORIF with plate and screw fixation at the distal right femur and medial femoral condyle.? No acute fractures or dislocations.? No suspicious bony lesions.? ? Soft tissues:? No suspicious soft tissue calcifications or masses.? Arterial calcifications.? ? IMPRESSION:? Expected appearance of the distal right femur ORIF.? No acute fractures seen. ? Stable right femur intramedullary nail and screw fixation. ? ? Dictated by: Oswald Bond M.D. on 05/21/2022 at 6:55 ? ? Approved by: Oswald Bond M.D. on 05/21/2022 at 6:58 ? MDM Narrative Medical decision making narrative: Patient thankfully has largely very reassuring history and physical exam. Imaging demonstrates no intracranial hemorrhage or cervical spinal injury. Abdomen and pelvis without significant traumatic findings specifically no periprosthetic fractures or pelvic fractures. Chest CT does demonstrate multiple rib fractures, thankfully without underlying pneumothorax, hemothorax. Patient requires hospitalization for pain control, observation to ensure no advanced pulmonary needs. Discharge Plan Departure Patient Disposition: Admitted as Observation Clinical Impression: Multiple fractures of rib involving four or more ribs Admit Date/Time: 05/22/22 10:43 Admit Provider: Alberto Major
[2022-05-21 05:52] LABS: Add Manual Diff / Slide Review NO; Basophils Absolute Auto 100 /uL (0-100); Basophils Percent Auto 0.7 % (0-2); Eosinophils Absolute Auto 0 /uL (0-450); Eosinophils Percent Auto 0.1 % (2-4); Lymphocytes Absolute Auto 400 /uL (1100-4500); Mean Corpuscular HGB Conc 33.3 % (30-36); Mean Corpuscular Hemoglobin 26.5 PG (26-34); Mean Corpuscular Volume 79.6 fL (80-100); Monocytes Absolute Auto 900 /uL (0-900); Monocytes Percent Auto 7.7 % (3-14); Neutrophils Absolute Auto 10800 /uL (1500-7000); Neutrophils Percent Auto 88.5 % (50-75); Platelet Count 302 X10^3/uL (150-400); Red Blood Cell Count 5.28 X10^6/uL (4.0-5.2); Red Cell Distribution Width 15.4 % (11.6-14.8); White Blood Cell Count 12.2 X10^3/uL (4.5-11.0)
[2022-05-21 05:56] LABS: Alanine Aminotransferase 20 IU/L (<35); Albumin 4.7 g/dL (3.5-5.0); Albumin Globulin Ratio 1.1 (1.0-2.8); Alkaline Phosphatase 131 U/L (38-126); Aspartate Aminotransferase 27 IU/L (14-36); BUN Creatinine Ratio 19.6 (6-22); Bilirubin Total 0.8 mg/dL (0.2-1.3); Blood Urea Nitrogen 9 mg/dL (7-17); Calcium 9.1 mg/dL (8.4-10.2); Carbon Dioxide 26 mmol/L (22-32); Chloride 98 mmol/L (98-107); Estimated Glomerular Filt Rate > 60 mL/min (>60); Globulin 4.1 g/dL (1.7-4.1); Glucose 123 mg/dL (80-110); HEMOLYSIS 36 (0-50); Potassium 4.2 mmol/L (3.4-5.1); Sodium 132 mmol/L (137-145); Total Protein 8.8 g/dL (6.3-8.2)
--- NOTE | 2022-05-21 06:52 | DI.RAD.S_ITS ---
PROCEDURE: XR HIP W PEL IF DONE RT 2V INDICATIONS: pain/fall TECHNIQUE: 3 views of the hip were acquired. COMPARISON: [facility], CT, CT CHEST ABD PEL WO CON, 05/21/2022, 5:29. [facility], CR, XR HIP W PEL IF DONE RT 2V, 12/20/2020, 10:33. [facility], CR, XR HIP W PEL IF DONE RT 2V, 10/10/2019, 11:00. FINDINGS: Bones: Right femur intramedullary nail with screw fixation. No periscrew lucency to suggest loosening or infection. No interval change appreciated. No acute fractures or dislocations. No suspicious bony lesions. The visualized pelvic ring appears intact. Soft tissues: No suspicious soft tissue calcifications or masses. Atherosclerotic calcifications. IMPRESSION: No acute osseous abnormality. Stable appearance of the right femur intramedullary nail when screw fixation. Dictated by: Oswald Bond M.D. on 05/21/2022 at 6:52 Approved by: Oswald Bond M.D. on 05/21/2022 at 6:55
--- NOTE | 2022-05-21 06:54 | DI.RAD.S_ITS ---
PROCEDURE: XR FEMUR RT MIN 2V INDICATIONS: pain/fall TECHNIQUE: 5 views of the femur were acquired. COMPARISON: [facility], CR, XR FEMUR 2+ VIEWS RIGHT, 05/19/2022, 7:53. [facility], CT, CT KNEE RIGHT WITHOUT CONTRAST, 12/29/2021, 23:41. [facility], CR, XR HIP W PEL IF DONE RT 2V, 05/21/2022, 6:59. FINDINGS: Bones: Right femur intramedullary nail with screw fixation is stable. ORIF with plate and screw fixation at the distal right femur and medial femoral condyle. No acute fractures or dislocations. No suspicious bony lesions. Soft tissues: No suspicious soft tissue calcifications or masses. Arterial calcifications. IMPRESSION: Expected appearance of the distal right femur ORIF. No acute fractures seen. Stable right femur intramedullary nail and screw fixation. Dictated by: Oswald Bond M.D. on 05/21/2022 at 6:55 Approved by: Oswald Bond M.D. on 05/21/2022 at 6:58
[2022-05-21 10:05] LABS: COVID19 -Nasal RAPID Negative (Negative)
--- NOTE | 2022-05-21 11:50 | P.HP_ITS ---
History of Present Illness History of Present Illness Date Patient Seen: 05/21/22 Time Patient Seen: 11:50 Chief complaint: GLF Narrative: 87-year-old woman admitted to the hospital for a traumatic ground level fall. She resides in independent living facility fell for a from the couch onto the floor and was brought to the emergency room at [facility] for further evaluation. She did not strike her head or lose consciousness. On arrival she is hemodynamically stable. She underwent CT head C-spine chest abdomen pelvis as well as extremity films which demonstrate bilateral rib fractures no pneumothorax or hemothorax. Patient History Medical History Abdominal pain Anxiety (09/16/13) Diverticulosis of large intestine Essential hypertension (02/24/11) History of adenomatous polyp of colon Hypertension Irritable bowel syndrome with diarrhea (09/13/16) Irritable bowel syndrome without diarrhea (05/28/15) Low back pain Lung nodule seen on imaging study (10/03/12) Mixed hyperlipidemia (02/24/11) Osteoporosis (02/24/11) Seizure Surgical History H/O colonoscopy History of appendectomy History of foot surgery Hx of appendectomy Family & Social History Social History: household members none Prior Living Arrangements Assisted Living lives independently Yes caregiver/support person Yes: Step daughter Safety & Behavioral: Feels Safe in Current Yes Environment Been Physically Hurt or No Threatened By a Person Tobacco & Substance use: Smoking Status Never smoker alcohol intake current alcohol intake frequency holiday/special occasion Substance Use Type does not use Meds Home Medications and Allergies Home Medications Medication Instructions Recorded Confirmed Type Disabled Parking #1 ea 11/02/18 04/19/22 Rx acetaminophen 325 mg tablet 500 mg PO TID PRN Pain (Scale 06/09/20 04/19/22 History Score 1-3) amlodipine 5 mg tablet 5 mg PO DAILY #90 tabs 06/11/21 04/19/22 Rx atorvastatin 20 mg tablet (Lipitor) 20 mg PO BEDTIME #90 tabs 07/26/21 04/19/22 Rx clopidogrel 75 mg tablet 75 mg PO DAILY #90 tabs 07/26/21 04/19/22 Rx lisinopril 40 mg tablet 40 mg PO DAILY #90 tabs 10/27/21 04/19/22 Rx citalopram 10 mg tablet 10 mg PO DAILY #30 tabs 12/09/21 04/19/22 Rx quetiapine 25 mg tablet See Rx Instructions .Route 02/28/22 04/19/22 Rx .COMPLEX #360 tabs aspirin 81 mg tablet,delayed 81 mg PO DAILY 03/15/22 04/19/22 History release docusate sodium 100 mg capsule 100 mg PO DAILY 03/15/22 04/19/22 History magnesium hydroxide 400 mg/5 mL 2,400 mg PO DAILY PRN 03/15/22 04/19/22 History oral suspension (Milk of Magnesia) vitamin no.115-iron 29 1 tab PO DAILY 03/15/22 04/19/22 History mg-folic acid 1 mg chewable tablet ( 19) thiamine HCl (vitamin B1) 100 mg 100 mg PO DAILY 03/15/22 04/19/22 History tablet levetiracetam 100 mg/mL oral 500 mg (5 mL) PO BID #473 mL 03/29/22 04/19/22 Rx solution lorazepam 1 mg tablet 1 mg PO TID PRN agitation #30 tabs 05/06/22 Rx Allergies Allergy/AdvReac Type Severity Reaction Status Date / Time lidocaine AdvReac Severe RASH, Verified 04/19/22 11:30 BURNED HER levofloxacin [From LEVAQUIN] AdvReac Unknown dizziness, Verified 04/19/22 11:30 not sure if related or not...08/30/16 Exam Vital Signs (past 8 hours): - 05/21/22 05:21 05/21/22 05:41 05/21/22 05:23 Temperature 97.6 F Pulse Rate 82 92 H 82 Respiratory Rate 14 18 Blood Pressure 186/87 H 165/95 H Pulse Oximetry 98 96 98 Oxygen Delivery Method Room Air Room Air Oxygen Flow Rate 05/21/22 05:30 05/21/22 05:30 05/21/22 05:56 Temperature Pulse Rate 83 Respiratory Rate Blood Pressure 172/91 H 168/77 H Pulse Oximetry 99 Oxygen Delivery Method Oxygen Flow Rate 05/21/22 05:56 05/21/22 06:00 05/21/22 06:00 Temperature Pulse Rate 78 77 Respiratory Rate Blood Pressure 152/70 H Pulse Oximetry 98 99 Oxygen Delivery Method Oxygen Flow Rate 05/21/22 06:30 10/29/22 06:30 05/21/22 07:00 Temperature Pulse Rate 75 Respiratory Rate Blood Pressure 147/76 H 141/74 H Pulse Oximetry 99 Oxygen Delivery Method Oxygen Flow Rate 05/21/22 07:00 05/21/22 07:30 05/21/22 07:30 Temperature Pulse Rate 75 83 Respiratory Rate Blood Pressure 136/77 Pulse Oximetry 99 100 Oxygen Delivery Method Oxygen Flow Rate 05/21/22 08:00 05/21/22 08:00 05/21/22 08:30 Temperature Pulse Rate 85 Respiratory Rate Blood Pressure 170/89 H 169/91 H Pulse Oximetry 99 Oxygen Delivery Method Oxygen Flow Rate 05/21/22 08:30 05/21/22 09:00 05/21/22 09:00 Temperature Pulse Rate 87 88 Respiratory Rate Blood Pressure 165/81 H Pulse Oximetry 100 100 Oxygen Delivery Method Oxygen Flow Rate 05/21/22 09:30 05/21/22 09:31 05/21/22 09:31 Temperature Pulse Rate 85 84 Respiratory Rate Blood Pressure 155/78 H Pulse Oximetry 99 99 Oxygen Delivery Method Oxygen Flow Rate 05/21/22 10:15 Temperature 98.6 F Pulse Rate 87 Respiratory Rate 18 Blood Pressure 157/88 H Pulse Oximetry 99 Oxygen Delivery Method Oxygen Flow Rate 0 Oxygen Delivery Method Room Air Oxygen Flow Rate 0 Narrative Exam Narrative: General elderly woman thin alert oriented no acute distress Neck trachea midline no JVD Chest nonlabored respiration no audible wheezes Abdomen soft nontender nondistended Extremities warm well perfused Objective Labs Result Diagrams: 05/21/22 05:38 05/21/22 05:38 Labs: Laboratory Results - last 24 hr 05/21/22 05/21/22 05/21/22 05:38 05:38 09:47 WBC 12.2 H RBC 5.28 H Hgb 14.0 Hct 42.0 MCV 79.6 L MCH 26.5 MCHC 33.3 RDW 15.4 H Plt Count 302 Neut % (Auto) 88.5 H Lymph % (Auto) 3.0 L [place] % (Auto) 7.7 Eos % (Auto) 0.1 L Baso % (Auto) 0.7 Neut # (Auto) 67754 H Lymph # (Auto) 400 L [place] # (Auto) 900 Eos # (Auto) 0 Baso # (Auto) 100 Sodium 132 L Potassium 4.2 Chloride 98 Carbon Dioxide 26 BUN 9 Creatinine 0.46 L Estimated GFR > 60 BUN/Creatinine Ratio 19.6 Glucose 123 H Calcium 9.1 Total Bilirubin 0.8 AST 27 ALT 20 Alkaline Phosphatase 131 H Total Protein 8.8 H Albumin 4.7 Globulin 4.1 Albumin/Globulin Ratio 1.1 SARS-CoV-2 (PCR) Negative Assessment & Plan Assessment and plan (1) Ribs, multiple fractures: Status: Acute Assessment & Plan narrative: 87-year-old woman status post ground level fall with multiple rib fractures. I have reviewed her laboratory studies and imaging personally. The extent of her injuries is bilateral rib fractures no pneumothorax or hemothorax. She will be observed for pain control and to ensure that she has no pulmonary dysfunction as result of her chest trauma. Anticipate that she may discharge tomorrow. -incentive spirometer -multimodal pain control -VT prophylaxis with Lovenox Time Spent With Patient Critical Care time: I spent a total of [] minutes of critical care time on this patient's care today; this time is exclusive of procedural time. Quality VTE Deep Vein Thrombosis/Pulmonary Embolism Present on Admission: Yes
--- NOTE | 2022-05-21 12:22 | P.HP_ITS ---
History of Present Illness History of Present Illness Date Patient Seen: 05/21/22 Chief complaint: GLF Narrative: 87-year-old female with a history of recent new diagnosis of seizure disorder and hip fracture with the admission to [facility] cerebrovascular accident hypertension hyperlipidemia and osteoporosis was admitted to the hospital after a traumatic fall and fracturing multiple ribs.0 Patient's primary care provider is Dr. Gomez. Reviewed patient's emergency department notes as well as Dr. Gomez's previous notes and surgical consultation. Discussed care with emergency room physician. Patient lives in assisted living in [place]. Patient is not a very reliable historian. She is complaining of hip pain as well as abdominal pain and discomfort. Her respiratory rate is normal. She knows she is in [place] at [facility]. She is eating lunch without difficulty. She denies any headache blurry vision. He is pain in her chest no palpitations or shortness of breath. Some mild abdominal pain. Patient History Medical History Abdominal pain Anxiety (09/16/13) Diverticulosis of large intestine Essential hypertension (02/24/11) History of adenomatous polyp of colon Hypertension Irritable bowel syndrome with diarrhea (09/13/16) Irritable bowel syndrome without diarrhea (05/28/15) Low back pain Lung nodule seen on imaging study (10/03/12) Mixed hyperlipidemia (02/24/11) Osteoporosis (02/24/11) Seizure Surgical History H/O colonoscopy History of appendectomy History of foot surgery Hx of appendectomy Family & Social History Social History: household members none Prior Living Arrangements Assisted Living lives independently Yes caregiver/support person Yes: Step daughter Safety & Behavioral: Feels Safe in Current Yes Environment Been Physically Hurt or No Threatened By a Person Tobacco & Substance use: Smoking Status Never smoker alcohol intake current alcohol intake frequency holiday/special occasion Substance Use Type does not use Meds Home Medications and Allergies Home Medications Medication Instructions Recorded Confirmed Type Disabled Parking #1 ea 11/02/18 04/19/22 Rx acetaminophen 325 mg tablet 500 mg PO TID PRN Pain (Scale 06/09/20 04/19/22 History Score 1-3) amlodipine 5 mg tablet 5 mg PO DAILY #90 tabs 06/11/21 04/19/22 Rx atorvastatin 20 mg tablet (Lipitor) 20 mg PO BEDTIME #90 tabs 07/26/21 04/19/22 Rx clopidogrel 75 mg tablet 75 mg PO DAILY #90 tabs 07/26/21 04/19/22 Rx lisinopril 40 mg tablet 40 mg PO DAILY #90 tabs 10/27/21 04/19/22 Rx citalopram 10 mg tablet 10 mg PO DAILY #30 tabs 12/09/21 04/19/22 Rx quetiapine 25 mg tablet See Rx Instructions .Route 02/28/22 04/19/22 Rx .COMPLEX #360 tabs aspirin 81 mg tablet,delayed 81 mg PO DAILY 03/15/22 04/19/22 History release docusate sodium 100 mg capsule 100 mg PO DAILY 03/15/22 04/19/22 History magnesium hydroxide 400 mg/5 mL 2,400 mg PO DAILY PRN 03/15/22 04/19/22 History oral suspension (Milk of Magnesia) vitamin no.115-iron 29 1 tab PO DAILY 03/15/22 04/19/22 History mg-folic acid 1 mg chewable tablet ( 19) thiamine HCl (vitamin B1) 100 mg 100 mg PO DAILY 03/15/22 04/19/22 History tablet levetiracetam 100 mg/mL oral 500 mg (5 mL) PO BID #473 mL 03/29/22 04/19/22 Rx solution lorazepam 1 mg tablet 1 mg PO TID PRN agitation #30 tabs 05/06/22 Rx Allergies Allergy/AdvReac Type Severity Reaction Status Date / Time lidocaine AdvReac Severe RASH, Verified 04/19/22 11:30 BURNED HER levofloxacin [From LEVAQUIN] AdvReac Unknown dizziness, Verified 04/19/22 11:30 not sure if related or not...08/30/16 Exam Vital Signs (past 8 hours): - 05/21/22 05:21 05/21/22 05:41 05/21/22 05:23 Temperature 97.6 F Pulse Rate 82 92 H 82 Respiratory Rate 14 18 Blood Pressure 186/87 H 165/95 H Pulse Oximetry 98 96 98 Oxygen Delivery Method Room Air Room Air Oxygen Flow Rate 05/21/22 05:30 05/21/22 05:30 05/21/22 05:56 Temperature Pulse Rate 83 Respiratory Rate Blood Pressure 172/91 H 168/77 H Pulse Oximetry 99 Oxygen Delivery Method Oxygen Flow Rate 05/21/22 05:56 05/21/22 06:00 05/21/22 06:00 Temperature Pulse Rate 78 77 Respiratory Rate Blood Pressure 152/70 H Pulse Oximetry 98 99 Oxygen Delivery Method Oxygen Flow Rate 05/21/22 06:30 05/21/22 06:30 05/21/22 07:00 Temperature Pulse Rate 75 Respiratory Rate Blood Pressure 147/76 H 141/74 H Pulse Oximetry 99 Oxygen Delivery Method Oxygen Flow Rate 05/21/22 07:00 05/21/22 07:30 05/21/22 07:30 Temperature Pulse Rate 75 83 Respiratory Rate Blood Pressure 136/77 Pulse Oximetry 99 100 Oxygen Delivery Method Oxygen Flow Rate 05/21/22 08:00 05/21/22 08:00 05/21/22 08:30 Temperature Pulse Rate 85 Respiratory Rate Blood Pressure 170/89 H 169/91 H Pulse Oximetry 99 Oxygen Delivery Method Oxygen Flow Rate 05/21/22 08:30 05/21/22 09:00 05/21/22 09:00 Temperature Pulse Rate 87 88 Respiratory Rate Blood Pressure 165/81 H Pulse Oximetry 100 100 Oxygen Delivery Method Oxygen Flow Rate 05/21/22 09:30 05/21/22 09:31 05/21/22 09:31 Temperature Pulse Rate 85 84 Respiratory Rate Blood Pressure 155/78 H Pulse Oximetry 99 99 Oxygen Delivery Method Oxygen Flow Rate 05/21/22 10:15 Temperature 98.6 F Pulse Rate 87 Respiratory Rate 18 Blood Pressure 157/88 H Pulse Oximetry 99 Oxygen Delivery Method Oxygen Flow Rate 0 Oxygen Delivery Method Room Air Oxygen Flow Rate 0 Narrative Exam Narrative: Gen.: Alert oriented to person and place HEENT: Pupils equal round and reactive or mucosa is moist neck is supple Cardio: Regular rate and rhythm systolic murmur present Respiratory: Normal respiratory effort with decreased inspiration Abdomen: Soft nontender no rebound no guarding Extremities: Full range of motion decreased due to pain in her right lower extremity Neurologic: Grossly intact Objective Labs Result Diagrams: 05/21/22 05:38 05/21/22 05:38 Labs: Laboratory Results - last 24 hr 05/21/22 05/21/22 05/21/22 05:38 05:38 09:47 WBC 12.2 H RBC 5.28 H Hgb 14.0 Hct 42.0 MCV 79.6 L MCH 26.5 MCHC 33.3 RDW 15.4 H Plt Count 302 Neut % (Auto) 88.5 H Lymph % (Auto) 3.0 L Pierce % (Auto) 7.7 Eos % (Auto) 0.1 L Baso % (Auto) 0.7 Neut # (Auto) 79224 H Lymph # (Auto) 400 L Pierce # (Auto) 900 Eos # (Auto) 0 Baso # (Auto) 100 Sodium 132 L Potassium 4.2 Chloride 98 Carbon Dioxide 26 BUN 9 Creatinine 0.46 L Estimated GFR > 60 BUN/Creatinine Ratio 19.6 Glucose 123 H Calcium 9.1 Total Bilirubin 0.8 AST 27 ALT 20 Alkaline Phosphatase 131 H Total Protein 8.8 H Albumin 4.7 Globulin 4.1 Albumin/Globulin Ratio 1.1 SARS-CoV-2 (PCR) Negative Assessment & Plan Assessment and plan (1) Ribs, multiple fractures: Status: Acute (2) Seizure: Status: Chronic (3) Cerebrovascular accident: Qualifiers: CVA mechanism: embolism Laterality of affected vessel: left Precerebral and cerebral artery: middle cerebral artery Qualified Code(s): I63.412 - Cerebral infarction due to embolism of left middle cerebral artery Status: Acute Plan Right lateral 5th 6th rib fractures and left 3 through 5 nondisplaced rib fractures pathologic due to her osteoporosis. General surgery has been consulted. Patient will be admitted to the hospital for aggressive pain control. Significant risk for pulmonary contusion due to her age and multiple rib fractures. Will need monitoring for further concerns of respiratory compromise due to multiple rib fractures pain may be at risk for hypoxia. Due to her age and frailty. Anticipate being in the hospital for a number of days. Will provide oral and IV pain medication as needed. Provide DVT prophylaxis. And in all likelihood will need an evaluation by Physical therapy. Osteoporosis. Known history of osteoporosis recent hip fracture now multiple rib fractures. Certainly at risk of for ongoing compression fractures. Review of her chart will need discussion on bisphosphonate. Cerebrovascular disease patient with a history of cerebrovascular disease CT scan shows previous infarct no new changes will continue with blood pressure statin management and anti-platelet Seizure patient with history of seizure disorder admitted to [facility] early this year was loaded with Keppra. She is currently on seizure prophylaxis with Keppra 500 mg b.i.d.. Does not appear that this recent most injury was due to underlying seizure disorder. Hypertension. Patient will be placed back on her antihypertensives Hyperlipidemia. Patient will be placed back on her cholesterol medication Hyponatremia. Patient with chronic hyponatremia. Sodium level is stable. Generalized anxiety disorder. Continue with quetiapine at night as needed. Code status patient is DNR. Disposition and plan. Anticipate patient being hospital past 2 midnights due to her multiple rib fractures age frailty and significant chest trauma and concern for pulmonary contusion Time Spent With Patient Critical Care time: I spent a total of [] minutes of critical care time on this patient's care today; this time is exclusive of procedural time. Quality VTE Deep Vein Thrombosis/Pulmonary Embolism Present on Admission: Yes
[2022-05-21] MEDS: OXYCODONE IR 5 MG TABLET PO ×2 (12:29→18:17)
[2022-05-21] MEDS: ACETAMINOPHEN 325 MG TABLET 650 MG PO ×2 (12:29→18:16)
[2022-05-21] MEDS: QUETIAPINE 25 MG TABLET PO (12:30)
[2022-05-21] MEDS: IBUPROFEN 600 MG TABLET PO ×2 (12:30→18:17)
--- NOTE | 2022-05-21 12:38 | PC.NURSE ---
Addendum entered by Olive Briceno R.N. 05/21/22 18:26: Patient eating well at meals. Just given tylenol, ibuprofen, and oxycodone 5mg for discomfort to ribs and back. This has been helpful to patient. She does not understand to use call bishop, so she does yell out for help. Patient is easily redirected and encouraged to try and use her light. Patient does have some early set dementia per brother and daughter. Addendum entered by Olive Briceno R.N. 05/21/22 16:29: Patient is feeling better after her pain medication given. She is able to lay on her back and is eating well at meals, she is asking for pudding and ice cream. Patient is thankful for everything we are doing for her. She wears dentures and these have been cleaned and brushed x2. Patient does not wear glasses and she is hard of hearing. Original Note: Patient fell at home, she has some rib fx and is in alot of discomfort. She was just given ibuprofen, tylenol, and 5mg of po oxycodone. She is lying on her r.side with hob up and she is feeding herself lunch. She is incontinent of urine and has already had two wet briefs. Patient has some dementia, and is repetitive with her questions. She is kind and has been appropriate. Mahsa does have some anxiety with movement but she lets us help her. Her daughter and brother were in earlier to see her and they have left for the day. Patient has a few bruises and some dryness to her feet. She resides at [facility].
--- NOTE | 2022-05-21 13:35 | PT.IIE ---
Current Diagnoses Cerebral infarction due to embolism of left middle cerebral artery (05/21/22) Unspecified convulsions (05/21/22) Multiple fractures of ribs, unspecified side, initial encounter for closed fracture (05/21/22) Surgical History (Last Reviewed 05/21/22 @ 12:22 by Alberto Major MD) H/O colonoscopy History of appendectomy History of foot surgery Hx of appendectomy Medical History (Last Reviewed 05/21/22 @ 12:22 by Alberto Major MD) Abdominal pain Anxiety (09/16/13) Diverticulosis of large intestine Essential hypertension (02/24/11) History of adenomatous polyp of colon Hypertension Irritable bowel syndrome with diarrhea (09/13/16) Irritable bowel syndrome without diarrhea (05/28/15) Low back pain Lung nodule seen on imaging study (10/03/12) Mixed hyperlipidemia (02/24/11) Osteoporosis (02/24/11) Seizure Physical Therapy Inpatient Evaluation/Re-Eval M1 PT/OT-IP Prior Functional Status Start: 05/21/22 14:23 Freq: NEEDED Status: Active Protocol: Document 05/21/22 13:35 AB (Rec: 05/21/22 14:36 AB [id number]) Medical Review Prior Functional Status Medical History Reviewed Yes Communication with confusion Mobility and Gait PLOF obtained from [facility] staff: stated that pt is a one person assist with transfers only and is w/ c bound per brother: pt is mostly on her w/c but able to stand pivot transfer herself without AD and able to do bed mobility by herself; stated that pt able to ambulate before RLE ORIF and only recently was allowed to put weight on RLE. Social History Household Members none Living Arrangements Assisted Living Comment lives at [facility] Number of Floors (Floors) One Floor Home Equipment Front Wheel Walker,Manual Wheelchair M2 PT-IP Current Condition Start: 05/21/22 14:23 Freq: NEEDED Status: Active Protocol: Document 05/21/22 13:35 AB (Rec: 05/21/22 14:36 AB [id number]) Physical Therapy Current Condition Current Condition Evaluation Date 05/21/22 Treatment Diagnosis s/p Fall; R lat 5-6th rib fx; L 3-5th rib fx; generalized weakness Onset Date 05/21/22 M3 PT-IP Subjective Start: 05/21/22 14:23 Freq: NEEDED Status: Active Protocol: Document 05/21/22 13:35 AB (Rec: 05/21/22 14:36 AB [id number]) Subjective Physical Therapy Visit Type Type Initial Evaluation Visit Start Time 13:35 Visit Stop Time 14:16 Total Visit Minutes 41 Number of BAG INSPECTOR Visits 0 Physical Therapy Visit Comments Patient Comments with confusion and expresses fear of pain and falling Therapy Pain Assessment Pain When Pain Assessed During Mobility Pain Present Pain Present Pain Reported Location Right Ribs Scale Used unable to stated pain scale Pain Behaviors Calling Out,Guarding Pain Management Techniques Distraction,Modification of Treatment,Re-positioning, Timing of Activity with Medications M4 PT-IP Mobility and Gait Start: 05/21/22 14:23 Freq: NEEDED Status: Active Protocol: Document 05/21/22 13:35 AB (Rec: 05/21/22 14:36 [email or web address]) PT-Bed Mobility Assessment Supine to Sit Supine to Sit Total Assistance,2 Person Assistance,Head of Bed Elevated,Bedrails Sit to Supine Sit to Supine Total Assistance,2 Person Assistance,Head of Bed Elevated,Bedrails Scooting Scooting to Edge of Bed Dependent Scooting Up and Down in Bed Dependent PT-Transfer Assessment Comments Mobility Comments pt with confusion and memory issues. completed supine to sit with HOB elevated total A x 2 and max cues. increase guarding with posterior trunk posterior lean and body extension with c/o pain and fear of falling. pt positioned on EOB total A x 2 with scooting to EOB. able to sit on EOB SBA to CGA after positioning. tolerated sitting on EOB ~ 5 min. encouraged to stand. Attempted x 2 but unable to complete with pt screaming due to pain and stated that she is afraid. assisted pt back to bed total A x 2. positioned pt in bed total A x 2 and max cues. call light and table placed within reach. left pt with brother in room . PT-Balance Assessment Sitting Balance and Reactions Static Sitting Balance Ability Good Dynamic Sitting Balance Ability Fair Standing Balance and Reactions Device Used nt M5 PT-IP Objective Assessments Start: 05/21/22 14:23 Freq: NEEDED Status: Active Protocol: Document 05/21/22 13:35 AB (Rec: 05/21/22 14:36 AB [id number]) Orientation Orientation/Cognition Level of Alertness Confusional State Orientation Name Language Function Ability Hard of Hearing Safety Awareness Decreased Safety Awareness Memory Description Short Term Impaired,Skilled Nursing Impaired Gross Range of Motion Lower Extremity ROM Impairments increas LE guarding and c/o pain with LE movement ; unable to assess Strength Comments Strength Comments unable to assess due to inicrease body guarding with mobility and pt has difficulty following instructions Muscle Tone Muscle Tone WNL Yes M6 PT-IP Treatment Start: 05/21/22 14:23 Freq: NEEDED Status: Active Protocol: Document 05/21/22 13:35 AB (Rec: 05/21/22 14:36 [email or web address] Physical Therapy Treatment Education Education Provided Safety M7 PT-IP Assessment and Plan Start: 05/21/22 14:23 Freq: NEEDED Status: Active Protocol: Document 05/21/22 13:35 AB (Rec: 05/21/22 14:36 AB [email or web address]) PT Summary Assessment and Plan Potential Rehabilitation Potential Fair Status of Condition at Evaluation Evolving Summary Impairments Pain,ROM,Strength,Balance, Coordination,Sensation,Tone, Cognition,Bed Mobility, Transfers,Gait,Activity Tolerance Assessment Summary pt requiring total A x 2 and max cues with all tasks. pt with increase fear of falling and c/o pain on R side/ribs presenting with increase body guarding and resistance to movement. pt will require SNF rehab to improve function. pt also has difficulty following directions and has memory issues affecting mobiltiy. will continue to assess progress. Goals Bed Mobility Goal Moderate Assistance Transfer Goal Moderate Assistance,Front Wheeled Walker Gait Goal Moderate Assistance,Front Wheel Walker Gait Distance 15 Days to Meet Goals 10 Frequency of Treatment Frequency Of Treatment Once a Day Treatment Plan Physical Therapy Treatment Plan Bed Mobility Training,Transfer Training,Gait Training, Therapeutic Exercise,Balance Retraining,Discharge Planning, Hot or Cold Pack,Neuromuscular Re-ed,Coordination Retraining Precautions Other Precautions falls Recommendations To Nursing Amount of Assist Needed Mechanical Lift Discharge Recommendations PT Discharge Recommendations SNF Rehab Transportation Needs at Discharge Wheelchair/Cabulance,Stretcher /Ambulance
--- NOTE | 2022-05-21 14:16 | OT.IP.EVAL ---
Current Diagnoses Cerebral infarction due to embolism of left middle cerebral artery (05/21/22) Unspecified convulsions (05/21/22) Multiple fractures of ribs, unspecified side, initial encounter for closed fracture (05/21/22) Past Medical History (Last Reviewed 05/21/22 @ 12:22 by Alberto Major MD) Abdominal pain Anxiety (09/16/13) Diverticulosis of large intestine Essential hypertension (02/24/11) History of adenomatous polyp of colon Hypertension Irritable bowel syndrome with diarrhea (09/13/16) Irritable bowel syndrome without diarrhea (05/28/15) Low back pain Lung nodule seen on imaging study (10/03/12) Mixed hyperlipidemia (02/24/11) Osteoporosis (02/24/11) Seizure Surgical History (Last Reviewed 05/21/22 @ 12:22 by Alberto Major MD) H/O colonoscopy History of appendectomy History of foot surgery Hx of appendectomy Occupational Therapy Inpatient Evaluation/Re-Eval M1 PT/OT-IP Prior Functional Status Start: 05/21/22 14:23 Freq: NEEDED Status: Active Protocol: Document 05/21/22 13:35 AB (Rec: 05/21/22 14:36 AB [id number]) Medical Review Prior Functional Status Medical History Reviewed Yes Communication with confusion Mobility and Gait PLOF obtained from [facility] staff: stated that pt is a one person assist with transfers only and is w/ c bound per brother: pt is mostly on her w/c but able to stand pivot transfer herself without AD and able to do bed mobility by herself; stated that pt able to ambulate before RLE ORIF and only recently was allowed to put weight on RLE. Social History Household Members none Living Arrangements Assisted Living Comment lives at [facility] Number of Floors (Floors) One Floor Home Equipment Front Wheel Walker,Manual Wheelchair M2 OT-IP Current Condition Start: 05/21/22 14:18 Freq: Status: Active Protocol: Document 05/21/22 14:18 CGR (Rec: 05/21/22 14:48 CGR [id number]) Occupational Therapy Current Condition Current Condition Evaluation Date 05/21/22 Treatment Diagnosis Fall with rib fx Diagnosis Onset Date 05/21/22 M3 OT- IP Subjective and Pain Start: 05/21/22 14:18 Freq: Status: Active Protocol: Document 05/21/22 14:18 CGR (Rec: 05/21/22 14:48 CGR [id number]) OT- Subjective Occupational Therapy Visit Type Type Initial Evaluation Visit Start Time 13:43 Visit Stop Time 14:16 Total Visit Minutes 33 Notes co-eval with p.t. OT Pain Assessment Pain When Pain Assessed During Mobility Pain Present Pain Present Pain Reported Location Left Back Pain Behaviors Calling Out,Crying,Guarding, Holding Area,Wincing Management Techniques Distraction,Modification of Treatment,Re-positioning M4 OT- IP ADL's Start: 05/21/22 14:18 Freq: Status: Active Protocol: Document 05/21/22 14:18 CGR (Rec: 05/21/22 14:48 CGR [id number]) OT [id number] General Evaluation Self-Feeding Ability Independent Comments OT Self-Feeding Comments Pt needs food cut up but is able to feed herself with extra time. OT ADL-Grooming Comments OT Grooming Comments not performed, per prison staff, pt needs assist OT ADL-Oral Care Comments Oral Care Comments not performed, per prison staff, pt needs assist OT ADL-Dressing General Eval Lower Body Dressing Ability Total Assistance Areas Needing Assistance Socks Comments OT Dressing Comments per prison staff, pt needs assist OT ADL-Toileting Comments OT Toileting Comments not performed OT ADL-Bathing Comments OT Bathing Comments not performed M5 OT- IP IADL's Start: 05/21/22 14:18 Freq: Status: Active Protocol: Document 05/21/22 14:18 CGR (Rec: 05/21/22 14:48 CGR [id number]) OT-Instrumental Activities of Daily Living Deficits IADL Deficits Identified Deficits Home Safety Awareness Awareness of Need for Assistance at Home Decreased Awareness Ability to Problem Solve Emergency Unable to Problem Solve Situations Medication Management Medication Management Caregiver Administers Money Management Money Management Caregiver Provides Assistance Meal Preparation Meal Preparation Caregiver Provides Assist Geoduck Diver Geoduck Diver Caregiver Provides Assist Driving Driving Caregiver Provides Assist M6 OT- IP Functional Cognition Start: 05/21/22 14:18 Freq: Status: Active Protocol: Document 05/21/22 14:18 CGR (Rec: 05/21/22 14:48 CGR [id number]) Cognitive Factors Limiting Selfcare Function Cognitive Ability Level of Alertness Alert,Confusional State Attention Span Ability Unable to Focus,Unable to Sustain Attention Cognitive Comments Cognitive Assessment Comments Pt displays severe dementia, pt does not follow commands even with extra time. OT- Vision and Hearing OT- Hearing Assessment OT- Hearing Assessment Use of Hearing Aids OT- Vision Assessment Vision Assessment Comments Pt is unable to follow commands to perform testing. M7 OT- IP Mobility and Balance Start: 05/21/22 14:18 Freq: Status: Active Protocol: Document 05/21/22 14:18 CGR (Rec: 05/21/22 14:48 CGR [id number]) OT- Bed Mobility Assessment Supine to Sit Supine to Sit Assist Total Assistance,2 Person Assistance Sit to Supine Sit to Supine Assist Total Assistance,2 Person Assistance Scooting Scooting to Edge of Bed Total Assistance,2 Person Assistance OT-Transfer Assessment Comments Mobility Comments Attempted sit to stand multiple times. Pt resists and yells out with attempted sit to stand. OT- Gait Assessment Comments Gait Ability Comments unable to perform OT- Balance Assessment Sitting Balance and Reactions Static Sitting Balance Ability Good M8 OT- IP Objective Assessments Start: 05/21/22 14:18 Freq: Status: Active Protocol: Document 05/21/22 14:18 CGR (Rec: 05/21/22 14:48 CGR [id number]) OT Strength Comments Strength Comments pt is unable to follow commands to perform OT- Coordination Assessment Comments Coordination Comments pt is unable to follow commands to perform OT-Muscle Tone Assessment Muscle Tone WNL No M9 OT- IP Assessment and Plan Start: 05/21/22 14:18 Freq: Status: Active Protocol: Document 05/21/22 14:18 CGR (Rec: 05/21/22 14:48 CGR [id number]) OT Summary Assessment and Plan Potential Rehabilitation Potential Poor Analytic Complexity at Evaluation Low Summary OT Impairments Pain,Balance,Functional Cognition,Functional Mobility, Grooming,Dressing,Toileting, Bathing,Toilet Transfers, Shower Transfers,Activity Tolerance Progress Towards Goals Slow Progress due to Cognition Assessment Summary Pt presents as a moderate complexity evaluation. Pt is at her baseline of dep for all ADLs except feeding which pt demonstrated today that she is able to perform. Pt is consistently unable to follow commands for participating with therapy services. Will discharge order at this time. Frequency of Treatment Frequency Of Treatment Discharge Discharge Recommendations OT Discharge Recommendations LTAC Transportation Needs at Discharge Stretcher/Ambulance
[2022-05-21] MEDS: ATORVASTATIN 20 MG TABLET PO (20:34)
[2022-05-21] MEDS: levETIRAcetam 250 MG TABLET 500 MG PO (20:34)
[2022-05-21] MEDS: QUETIAPINE 25 MG TABLET 50 MG PO (20:35)
[2022-05-22] VITALS (14 sets, daily range): BP systolic 82–128; BP diastolic 48–71; PULSE 72–83; RESP 12–21; TEMP 36.3–37.1; O2SAT 93–100
[2022-05-22] MEDS: ACETAMINOPHEN 325 MG TABLET 650 MG PO ×4 (00:01→16:44)
[2022-05-22] MEDS: IBUPROFEN 600 MG TABLET PO ×4 (00:01→16:44)
[2022-05-22] MEDS: lisinopriL 20 MG TABLET 40 MG PO (08:45)
[2022-05-22] MEDS: DOCUSATE 100 MG CAPSULE PO (08:45)
[2022-05-22] MEDS: CITALOPRAM 10 MG TABLET PO (08:46)
[2022-05-22] MEDS: QUETIAPINE 25 MG TABLET PO (08:46)
[2022-05-22] MEDS: levETIRAcetam 250 MG TABLET 500 MG PO ×2 (08:46→21:52)
[2022-05-22] MEDS: ENOXAPARIN 30 MG/0.3 ML SYRINGE SUBCUT (08:46)
[2022-05-22] MEDS: OXYCODONE IR 5 MG TABLET PO (08:46)
[2022-05-22] MEDS: AMLODIPINE 5 MG TABLET PO (08:46)
--- NOTE | 2022-05-22 09:01 | PM.PN.1 ---
Subjective Subjective Date Patient Seen: 05/22/22 Time Patient Seen: 09:01 Interval history: Patient seen and evaluated states she is feeling a little bit better this morning. Still pain causing quite a bit of difficulty with mobility. No respiratory distress vital signs are stable. She is a good eater. She has some difficulty with her memory. And not the best historian. No nursing staff concerns. Exam Vital Signs (past 8 hours): - 05/22/22 05:41 05/22/22 07:30 05/22/22 08:45 Temperature 98.8 F 98.6 F Pulse Rate 76 73 73 Respiratory Rate 21 14 Blood Pressure 119/65 128/71 128/71 Pulse Oximetry 96 97 Oxygen Flow Rate 0 0 Oxygen Delivery Method Room Air Oxygen Flow Rate 0 Narrative Exam Narrative: Gen.: Alert knows she is in [place]. HEENT: Pupils equal round and reactive or mucosa is moist neck is supple Cardio: Regular rate and rhythm Respiratory: Normal respiratory effort tenderness to palpation on the ribs Abdomen: Soft nontender no rebound or guarding Extremities: Full range of motion Neurologic: Grossly intact Objective Labs Result Diagrams: 05/21/22 05:38 05/21/22 05:38 Labs: Laboratory Results - last 24 hr 05/21/22 09:47 SARS-CoV-2 (PCR) Negative [facility] Medical History Abdominal pain Anxiety (09/16/13) Diverticulosis of large intestine Essential hypertension (02/24/11) History of adenomatous polyp of colon Hypertension Irritable bowel syndrome with diarrhea (09/13/16) Irritable bowel syndrome without diarrhea (05/28/15) Low back pain Lung nodule seen on imaging study (10/03/12) Mixed hyperlipidemia (02/24/11) Osteoporosis (02/24/11) Seizure Surgical History H/O colonoscopy History of appendectomy History of foot surgery Hx of appendectomy Social History marital status: number of children: 1 household members: none lives independently: Yes caregiver/support person: Yes (Step daughter) housing: apartment pets and animals: No education level: high school occupational status: other 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 hortencia/zoroastrianism: [employer] leisure activities: music, reading and other Smoking Status: Never smoker Tobacco: How many years used: 0 alcohol intake: current substance use type: does not use Assessment & Plan Assessment and plan (1) Multiple fractures of rib involving four or more ribs: Status: Acute (2) Ribs, multiple fractures: Status: Acute (3) Seizure: Status: Chronic Plan Right lateral 5th 6th rib fractures and left 3 through 5 nondisplaced rib fractures pathologic due to her osteoporosis.? Patient did well overnight no signs of respiratory distress or hypoxia. Pain has been an issue. Difficulty with mobility due to patient discomfort. Although pain medication seems to be working well for her. Osteoporosis.? Known history of osteoporosis recent hip fracture now multiple rib fractures.? Discussion of bisphosphonate. Cerebrovascular disease patient with a history of cerebrovascular disease CT scan shows previous infarct no new changes will continue with blood pressure statin management and anti-platelet Seizure patient with history of seizure disorder continue with Keppra no seizure activity at this time. Hypertension.? Patient's blood pressure is reasonably well controlled although a little bit high. Hyperlipidemia.? Her statin will be continued Hyponatremia.? Check sodium level tomorrow Generalized anxiety disorder.? Continue with quetiapine at night as needed. Code status patient is DNR.? Disposition and plan.? Mobilize today optimize pain medication possible discharge tomorrow Time Spent With Patient Critical Care time: I spent a total of [] minutes of critical care time on this patient's care today; this time is exclusive of procedural time. Quality VTE Deep Vein Thrombosis/Pulmonary Embolism Present on Admission: Yes
--- NOTE | 2022-05-22 11:06 | PT.IPTN ---
Current Diagnoses Cerebral infarction due to embolism of left middle cerebral artery (05/21/22) Unspecified convulsions (05/21/22) Multiple fractures of ribs, unspecified side, initial encounter for closed fracture (05/21/22) Physical Therapy Treatment Note M2 PT-IP Current Condition Start: 05/21/22 14:23 Freq: NEEDED Status: Active Protocol: Document 05/21/22 13:35 AB (Rec: 05/21/22 14:36 AB [id number]) Physical Therapy Current Condition Current Condition Evaluation Date 05/21/22 Treatment Diagnosis s/p Fall; R lat 5-6th rib fx; L 3-5th rib fx; generalized weakness Onset Date 05/21/22 M3 PT-IP Subjective Start: 05/21/22 14:23 Freq: NEEDED Status: Active Protocol: Document 05/22/22 10:50 RBD (Rec: 05/22/22 12:02 RBD [id number]) Subjective Physical Therapy Visit Type Type Treatment Note Visit Start Time 10:50 Visit Stop Time 11:06 Total Visit Minutes 16 Number of COUNTER TACKER Visits 1 Physical Therapy Visit Comments Patient Comments Agreeable to PT M4 PT-IP Mobility and Gait Start: 05/21/22 14:23 Freq: NEEDED Status: Active Protocol: Document 05/22/22 11:48 RBD (Rec: 05/22/22 12:02 RBD [id number]) PT-Bed Mobility Assessment Supine to Sit Supine to Sit Maximum Assistance,2 Person Assistance,Head of Bed Elevated,Bedrails Sit to Supine Sit to Supine Maximum Assistance,2 Person Assistance,Head of Bed Elevated,Bedrails Scooting Scooting to Edge of Bed Maximum Assistance Scooting Up and Down in Bed Dependent PT-Transfer Assessment Sit to and From Stand Sit to and from Stand Maximum Assistance,2 Person Assistance Equipment Transfer Assistive Device Gait Belt,Front Wheeled Walker Comments Mobility Comments Pt resting in bed upon arrival and amenable to PT. RN in room for 2nd person assist. supine to sit Max A x 2 w/o complaints of pain. Scootining EOB Max A x2 w/ use of B UE. Sit to stand Max A x2 and max cueing. Attempted steping and weigh shifting, however, unable to perform. Sit to stand x 2 from bed w/ Max A x 2 w/o complaints or signs of pain. Sit to supine in bed Max A x 2. Scooting in bed dependant x 2. Pt left in bed with allarm on, all needs and call light in reach. PT-Balance Assessment Sitting Balance and Reactions Static Sitting Balance Ability Good Dynamic Sitting Balance Ability Fair Standing Balance and Reactions Static Standing Balance Ability Fair Dynamic Standing Balance Ability Poor M5 PT-IP Objective Assessments Start: 05/21/22 14:23 Freq: NEEDED Status: Active Protocol: Document 05/21/22 13:35 AB (Rec: 05/21/22 14:36 AB [id number]) Orientation Orientation/Cognition Level of Alertness Confusional State Orientation Name Language Function Ability Hard of Hearing Safety Awareness Decreased Safety Awareness Memory Description Short Term Impaired,Hoop Puncher Impaired Gross Range of Motion Lower Extremity ROM Impairments increas LE guarding and c/o pain with LE movement ; unable to assess Strength Comments Strength Comments unable to assess due to inicrease body guarding with mobility and pt has difficulty following instructions Muscle Tone Muscle Tone WNL Yes M6 PT-IP Treatment Start: 05/21/22 14:23 Freq: NEEDED Status: Active Protocol: Document 05/22/22 11:48 RBD (Rec: 05/22/22 12:02 RBD [id number]) Physical Therapy Treatment Education Education Provided Safety M7 PT-IP Assessment and Plan Start: 05/21/22 14:23 Freq: NEEDED Status: Active Protocol: Document 05/22/22 11:48 RBD (Rec: 05/22/22 12:02 RBD [id number]) PT Summary Assessment and Plan Potential Rehabilitation Potential Fair Status of Condition at Evaluation Evolving Summary Impairments Pain,ROM,Strength,Balance, Coordination,Sensation,Tone, Cognition,Bed Mobility, Transfers,Gait,Activity Tolerance Assessment Summary Pt required Max A and max cueing throughout treatment. No c/o pain or grimacing. Pt would benifit from SNF rehab to improve function, tolerance to activity and reduce fall risk. Goals Bed Mobility Goal Moderate Assistance Transfer Goal Moderate Assistance,Front Wheeled Walker Gait Goal Moderate Assistance,Front Wheel Walker Gait Distance 15 Days to Meet Goals 10 Frequency of Treatment Frequency Of Treatment Once a Day Treatment Plan Physical Therapy Treatment Plan Bed Mobility Training,Transfer Training,Gait Training, Therapeutic Exercise,Balance Retraining,Discharge Planning, Hot or Cold Pack,Neuromuscular Re-ed,Coordination Retraining Precautions Other Precautions falls Recommendations To Nursing Amount of Assist Needed 2 Person Assist,Mechanical Lift Discharge Recommendations PT Discharge Recommendations SNF Rehab Transportation Needs at Discharge Wheelchair/Cabulance,Stretcher /Ambulance
--- NOTE | 2022-05-22 13:40 | PC.NURSE ---
[facility] Contacted Dr Major about Pt 1200 BP being 92/56 p74 ,1300 BP 82/48 p75 and 1342 BP 112/[address] Major instructed to continue to monitor BP, do not administer fluids, and monitor BP prior to administer of next BP medications.
--- NOTE | 2022-05-22 15:49 | CM.DANOTE ---
DCP/Assessment: Reviewed chart. Patient is a 87yr old female admitted to [facility] with multiple rib fractures secondary to fall. Patient changed to inpatient status today 05-22-22. PCP is Dr. Gomez. Primary payor 1)Medicare 2)[facility]. Met with patient and brother/Aleksandar at bedside explained CM team role. Brother reports patient does have memory issues and resides at [facility]. Per brother, patient uses both w/c and walker at baseline. Therapy evaluation pending. Brother anticipates that patient will need SNF prior to returning to [facility]. SNF list given to brother and list shown on IPAD. Brother would like to discuss with patient's daughter/Ewa re: SNF choice. P: CM team to follow closely. Patient most likely will need SNF. Patient has had COVID vaccination and booster. KRYS Wright Discharge Planning/Care Management Advanced directive, confirm from FAMILY Start: 05/21/22 10:44 Freq: Q24H Status: Active Protocol: Document 05/22/22 10:45 MS (Rec: 05/22/22 10:46 MS [id number]) Advance Directive, confirm on record Time 10:46 Person contacted Pt Copy received No CM Discharge Assessment Start: 05/22/22 15:45 Freq: Status: Active Protocol: Document 05/22/22 15:45 KJS (Rec: 05/22/22 15:49 KJS [id number]) Discharge Planning Assessment Assigned Supervisor Riprap Placing KRYS Wright DPOA/Assigned Designee Name Aleksandar Mcnela (brother) # Advance Directives? Yes: POA Advance Directives on File No: Family will bring a copy History Provided By Patient,Family Member,Medical Record Prior Living Arrangements Halfway Facility Comment lives at [facility] Household Members none Type of transporation used prior to Relies on Others admit Facility Name Admitted From: [facility] Willing to Return to Facility? Yes Independent with ADL's No Is patient alert and oriented? No Comment Anticipate patient will need SNF prior to returning to [facility]. Medicare SNF list and review on IPAD provided to brother this AM. Anticipate either [facility] or [facility]. Brother to discuss with patient's daughter/Ewa. Therapy evaluation pending. Caregiver for Another No DME Already Rented / Owned FWW / Walker Patient/Family Preference Senior Care Facility Barriers to Discharge No Discharge Plan Senior Care Facility Transportation Arrangement SNF Referrals Initiated Senior [facility] Medicare Choice List Provided Yes SNF/HH Preference [facility] or [facility]. Therapy evalation pending. Whiteboard Updated in Patient Room with Yes name and ext. # of Supervisor Riprap Placing Review Status In Process Next Review Type Continued Stay Review
--- NOTE | 2022-05-22 18:02 | PC.NURSE ---
Daysiaft Contacted Dr Major, Informed him that Pt has had very little fluid intake, with only one brief change and small quarter sized urine output noted, dark brown and fragrant. Dr Major gave verbal order to start NS at 125 mls/hr for the next 12 hours. Pt has Purwick placed to catch urine output.
[2022-05-22] MEDS: SODIUM CHLORIDE 0.9% 1,000 ML 125 ML IV (18:44)
[2022-05-22] MEDS: QUETIAPINE 25 MG TABLET 50 MG PO (21:52)
[2022-05-22] MEDS: ATORVASTATIN 20 MG TABLET PO (21:52)
[2022-05-22] MEDS: SODIUM CHLORIDE 0.9% FLUSH 10 ML IV (21:52)
[2022-05-23] MEDS: ACETAMINOPHEN 325 MG TABLET 650 MG PO ×3 (00:03→23:04)
[2022-05-23] MEDS: IBUPROFEN 600 MG TABLET PO ×2 (00:04→15:17)
[2022-05-23] MEDS: SODIUM CHLORIDE 0.9% 1,000 ML 125 ML IV (01:55)
[2022-05-23] MEDS: OXYCODONE IR 5 MG TABLET PO ×3 (02:17→15:17)
[2022-05-23 03:00] VITALS: BP 99/55; PULSE 72; RESP 13; TEMP 36.7; O2SAT 95
[2022-05-23 05:16] LABS: Add Manual Diff / Slide Review NO; Basophils Absolute Auto 200 /uL (0-100); Basophils Percent Auto 2.1 % (0-2); Eosinophils Absolute Auto 300 /uL (0-450); Eosinophils Percent Auto 3.5 % (2-4); Hematocrit 32.9 % (36-46); Lymphocytes Absolute Auto 800 /uL (1100-4500); Lymphocytes Percent Auto 9.9 % (25-40); Mean Corpuscular HGB Conc 33.5 % (30-36); Mean Corpuscular Hemoglobin 26.7 PG (26-34); Mean Corpuscular Volume 79.7 fL (80-100); Monocytes Absolute Auto 1300 /uL (0-900); Monocytes Percent Auto 16.6 % (3-14); Neutrophils Absolute Auto 5200 /uL (1500-7000); Neutrophils Percent Auto 67.9 % (50-75); Platelet Count 219 X10^3/uL (150-400); Red Blood Cell Count 4.13 X10^6/uL (4.0-5.2); White Blood Cell Count 7.7 X10^3/uL (4.5-11.0)
[2022-05-23 05:27] LABS: Alanine Aminotransferase 13 IU/L (<35); Albumin 3.2 g/dL (3.5-5.0); Albumin Globulin Ratio 1.1 (1.0-2.8); Alkaline Phosphatase 83 U/L (38-126); Aspartate Aminotransferase 22 IU/L (14-36); BUN Creatinine Ratio 22.5 (6-22); Bilirubin Total 0.5 mg/dL (0.2-1.3); Blood Urea Nitrogen 18 mg/dL (7-17); Carbon Dioxide 22 mmol/L (22-32); Chloride 101 mmol/L (98-107); Estimated Glomerular Filt Rate > 60 mL/min (>60); Globulin 2.8 g/dL (1.7-4.1); Glucose 87 mg/dL (80-110); HEMOLYSIS < 15 (0-50); Potassium 3.8 mmol/L (3.4-5.1); Sodium 130 mmol/L (137-145)
--- NOTE | 2022-05-23 05:28 | PC.NURSE ---
Pt continued to remove purewick, no urine measured. Pt incontinent in brief. Screams out in pain when repositioning stating stop hurting me, unable to console until completely done repositioning. Pt swallowed bedtime meds, but refusing all meds during the night, spitting them out.
[2022-05-23 07:00] VITALS: BP 98/51; PULSE 77; RESP 17; TEMP 36.3; O2SAT 94
--- NOTE | 2022-05-23 07:44 | PM.PN.1 ---
Subjective Subjective Date Patient Seen: 05/23/22 Time Patient Seen: 07:44 Interval history: Patient reviewed with Dr. Major who admitted her over the weekend Patient fell from her bed fracturing several ribs on both sides. During this hospitalization has so far shown improvement in pain but still having lot of pain with any activity. She is had some obvious cognitive issues which is longstanding for her. Has been intermittently confused refusing medications etcetera, and this seems to be perhaps somewhat worse as time goes by. Fairly classic for an elderly patient in pain in hospital with an underlying cognitive disorder. Seen by skilled therapies who feel like she will likely need placement in long-term prior to being able to return to her assisted living facility in [place] Exam Vital Signs (past 8 hours): - 05/23/22 00:00 05/23/22 03:00 05/23/22 04:00 Temperature 98.1 F Pulse Rate 72 Respiratory Rate 13 Blood Pressure 99/55 L Pulse Oximetry 95 Oxygen Delivery Method Room Air Room Air Oxygen Flow Rate 0 Oxygen Delivery Method Room Air Oxygen Flow Rate 0 Objective Labs Result Diagrams: 05/23/22 05:02 05/23/22 05:02 Labs: Laboratory Results - last 24 hr 05/23/22 05/23/22 05:02 05:02 WBC 7.7 RBC 4.13 Hgb 11.0 L Hct 32.9 L MCV 79.7 L MCH 26.7 MCHC 33.5 RDW 15.0 H Plt Count 219 Neut % (Auto) 67.9 D Lymph % (Auto) 9.9 L [place] % (Auto) 16.6 H Eos % (Auto) 3.5 Baso % (Auto) 2.1 H Neut # (Auto) 5200 Lymph # (Auto) 800 L [place] # (Auto) 1300 H Eos # (Auto) 300 Baso # (Auto) 200 H Sodium 130 L Potassium 3.8 Chloride 101 Carbon Dioxide 22 BUN 18 H Creatinine 0.80 Estimated GFR > 60 BUN/Creatinine Ratio 22.5 H Glucose 87 Calcium 8.0 L Total Bilirubin 0.5 AST 22 ALT 13 Alkaline Phosphatase 83 Total Protein 6.0 L Albumin 3.2 L Globulin 2.8 Albumin/Globulin Ratio 1.1 [facility] Medical History Abdominal pain Anxiety (09/16/13) Diverticulosis of large intestine Essential hypertension (02/24/11) History of adenomatous polyp of colon Hypertension Irritable bowel syndrome with diarrhea (09/13/16) Irritable bowel syndrome without diarrhea (05/28/15) Low back pain Lung nodule seen on imaging study (10/03/12) Mixed hyperlipidemia (02/24/11) Osteoporosis (02/24/11) Seizure Surgical History H/O colonoscopy History of appendectomy History of foot surgery Hx of appendectomy Social History marital status: number of children: 1 household members: none lives independently: Yes caregiver/support person: Yes (Step daughter) housing: apartment pets and animals: No education level: high school occupational status: other 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 hortencia/yazidi: [employer] leisure activities: music, reading and other Smoking Status: Never smoker Tobacco: How many years used: 0 alcohol intake: current substance use type: does not use Assessment & Plan Assessment & Plan narrative: 1. Rib fractures-continue supportive care. Patient has used oxycodone 3 and 4 times a day thus far. Continue with that medication which seems to be helping with pain control without causing undue negative side effects 2. Osteoporosis-I agree with previous assessments the patient would benefit from a bisphosphonate once healing has been well underway with these rib fractures. Probably sometime around 23 of June will strongly consider adding a bisphosphonate to her regimen. 3. Weakness with falls-continue with skilled therapies and agree with placement in long-term when ready for discharge hopefully in the next 24-48 hours 4. Seizure disorder-relatively new onset likely secondary to her CVA. Continue patient's usual medication. No evidence of seizure activity thus far in the hospital 5. History of relatively recent CVA-continue with antiplatelet therapy statin and blood pressure management 6. Status post hip fracture-patient will be getting skilled therapies as above. This is healed and relatively stable as patient was up ambulating prior to admission 7. Hyponatremia-very mild in actually improved over baseline. I believe she is probably at her baseline sodium actually. 8. Disposition-patient to go to long-term for some rehabilitation prior to discharge back to [facility] Note: Greater than 20 minutes total time was spent on day of service, evaluating the patient on the floor, including examining the patient, discussing clinical course with clinical and nursing staff, reviewing clinical course in the computer, preparing documentation and writing orders for continued management of care, discussing status with family as appropriate, reviewing plans for the next 24 hours with both patient/family and nursing staff as appropriate. COVID-19 COVID-19 status: Negative Result date/Date tested (Pos, Neg/Pending): 05/21/22 Quality VTE Deep Vein Thrombosis/Pulmonary Embolism Present on Admission: Yes
[2022-05-23] MEDS: levETIRAcetam 250 MG TABLET 500 MG PO ×2 (09:33→20:29)
[2022-05-23] MEDS: DOCUSATE 100 MG CAPSULE PO (09:33)
[2022-05-23] MEDS: CITALOPRAM 10 MG TABLET PO (09:33)
[2022-05-23] MEDS: QUETIAPINE 25 MG TABLET PO (09:33)
[2022-05-23] MEDS: ENOXAPARIN 30 MG/0.3 ML SYRINGE SUBCUT (09:39)
[2022-05-23] MEDS: SODIUM CHLORIDE 0.9% FLUSH 10 ML IV ×2 (09:39→23:04)
--- NOTE | 2022-05-23 11:16 | PC.NURSE ---
Addendum entered by Olive Briceno R.N. 05/23/22 18:19: Patient is resting comfortably. Her brief is dry, and she has no complaints of pain. Addendum entered by Olive Briceno R.N. 05/23/22 16:37: Patient given 1 oxycodone and ibuprofen. She is asleep and not having any discomfort. Addendum entered by Olive Briceno R.N. 05/23/22 14:31: Patient is a 3 person assist with changing her brief. She yells out and resists, as she has pain from her broken ribs. She was incontinent of a large amount of urine. Gown and pad changed, patient is soundly sleeping now. Original Note: Patient is pleasant and thankful this morning. She took her medications and pain meds. Blood pressure meds not given as blood pressure 90s/60s. into see patient and she may need to go to a SNF for some rehab. Ate some breakfast and has been drinking po. She is incontinent of urine, Mahsa is napping at this time.
--- NOTE | 2022-05-23 12:55 | CM.DPC ---
DCP SNF Planning Per MD, pt still with pain and not medically stable to d/c yet. Per RN, pt had some confusion overnight but pleasant and cooperative today. Per PT/OT, recommending SNF. AMBROCIO contacted pt's DPOA/brother Aleksandar and confirmed he received the SNF Choice list yesterday and discussed with pt's Dtr and SNF preference is 1) [facility] 2) [facility]. Per UR RN pt was changed from OBS to Inpt as of 05/22 and would have qualifying [facility] stay by Mon if stable for d/c. AMBROCIO contacted [facility] who confirms they can accept pt once she has her qualifying Medicare stay. AMBROCIO left ms for [facility] and faxed clinicals to review. PASRR completed in anticipation of SNF. Plan: AMBROCIO to follow for [facility] review to determine 1) [facility] vs 2) [facility] at d/c. Pt likely will need updated COVID swab at d/c prior to SNF. KRYS Penn
--- NOTE | 2022-05-23 13:20 | PT.IPTN ---
Current Diagnoses Cerebral infarction due to embolism of left middle cerebral artery (05/22/22) Unspecified convulsions (05/22/22) Multiple fractures of ribs, unspecified side, initial encounter for closed fracture (05/22/22) Physical Therapy Treatment Note M2 PT-IP Current Condition Start: 05/21/22 14:23 Freq: NEEDED Status: Active Protocol: Document 05/23/22 13:03 SP (Rec: 05/23/22 14:02 SP [id number]) Physical Therapy Current Condition Current Condition Evaluation Date 05/21/22 Treatment Diagnosis s/p Fall; R lat 5-6th rib fx; L 3-5th rib fx; generalized weakness Onset Date 05/21/22 M3 PT-IP Subjective Start: 05/21/22 14:23 Freq: NEEDED Status: Active Protocol: Document 05/23/22 13:03 SP (Rec: 05/23/22 14:02 SP [id number]) Subjective Physical Therapy Visit Type Type Treatment Note Visit Start Time 13:03 Visit Stop Time 13:20 Total Visit Minutes 13 Notes JJ De Santiago provided assist to pt and STERILE TECHNICIAN Kera including vitals, 2nd person bed mob and education importance of mobilty benefits. Vitals taken in supine: BP 118 /68 Number of STERILE TECHNICIAN Visits 2 Physical Therapy Visit Comments Patient Comments Pt agreeable initially to suggestion mobilizing with therapy up to chair. Therapy Pain Assessment Pain When Pain Assessed During Mobility Pain Present Pain Present Pain Reported Location Right hip Scale Used no scale rating identified Description With Movement Pain Behaviors Calling Out,Facial Grimacing, Holding Area,Moaning, Restlessness,Wincing Pain Management Techniques Distraction,Re-positioning, Timing of Activity with Medications M4 PT-IP Mobility and Gait Start: 05/21/22 14:23 Freq: NEEDED Status: Active Protocol: Document 05/23/22 13:03 SP (Rec: 05/23/22 14:02 SP [id number]) PT-Bed Mobility Assessment Rolling Type of Rolling Log Rolling,Roll to Right Supine to Sit Supine to Sit Maximum Assistance,2 Person Assistance,Head of Bed Elevated Scooting Scooting Up and Down in Bed Dependent PT-Transfer Assessment Comments Mobility Comments Pt elevated sitting up in bed when arrived, alert eating yogurt parfait when arrived. SPTA/ STERILE TECHNICIAN assisted with vital assessment, support to RLE elevation to removed B SCDs. Pt called out with report pain rubbing R leg. Pt alert to place and self. She agrees to sitting up EOB, tactile and max cues for sequencing BLE and trunk roll/sit with forceful extension and calling out pain in RLE then closes eyes calm demeaner. Attempted x2 with education on benefits of mobilizing. Therapists and pt unable to progress further mobility due to pain response . STERILE TECHNICIAN/SPTA assisted pt centering in bed dependent with transfer pad, and propping with pillow behind back to support modified R back/sidelying self comfort positioning. STERILE TECHNICIAN/ SPTA provided upright posturing with bed alarmed and tray, call light in reach before left. Pt response at times appropriate to tasks performing but pt confused and word finding challenges. Will continue to assess progress in mobility tomorrow. Gait Assessment Comments Gait Comments Unable at this time. Stair Climbing Assessment Comments Stair Climbing Comments no stairs need to assess in [facility]. PT-Balance Assessment Comments Other Balance Tests/Deviations/Treatment Unable to assess progress due : to pain and forceful retro ext during attempt of bed mob sup >sit. M5 PT-IP Objective Assessments Start: 05/21/22 14:23 Freq: NEEDED Status: Active Protocol: Document 05/21/22 13:35 AB (Rec: 05/21/22 14:36 AB [id number]) Orientation Orientation/Cognition Level of Alertness Confusional State Orientation Name Language Function Ability Hard of Hearing Safety Awareness Decreased Safety Awareness Memory Description Short Term Impaired,Shelter Impaired Gross Range of Motion Lower Extremity ROM Impairments increas LE guarding and c/o pain with LE movement ; unable to assess Strength Comments Strength Comments unable to assess due to inicrease body guarding with mobility and pt has difficulty following instructions Muscle Tone Muscle Tone WNL Yes M6 PT-IP Treatment Start: 05/21/22 14:23 Freq: NEEDED Status: Active Protocol: Document 05/23/22 13:03 SP (Rec: 05/23/22 14:02 SP [id number]) Physical Therapy Treatment Education Education Provided Weight Bearing Status,Safety M7 PT-IP Assessment and Plan Start: 05/21/22 14:23 Freq: NEEDED Status: Active Protocol: Document 05/23/22 13:03 SP (Rec: 05/23/22 14:02 SP [id number]) PT Summary Assessment and Plan Potential Rehabilitation Potential Fair Status of Condition at Evaluation Evolving Summary Impairments Pain,ROM,Strength,Balance, Coordination,Sensation,Tone, Cognition,Bed Mobility, Transfers,Gait,Activity Tolerance Progress Towards Goals Slow Progress due to Pain,Slow Progress due to Activity Tolerance Assessment Summary Pt required Max A x2 and max cueing throughout treatment. Max A x2 attempt complete supine>sit unable due to pain R LE and confusion forceful retro extension laying in bed. Pt would benefit from SNF rehab to improve function, tolerance to activity and reduce fall risk. Goals Bed Mobility Goal Moderate Assistance Transfer Goal Moderate Assistance,Front Wheeled Walker Gait Goal Moderate Assistance,Front Wheel Walker Gait Distance 15 Days to Meet Goals 10 Frequency of Treatment Frequency Of Treatment Once a Day Treatment Plan Physical Therapy Treatment Plan Bed Mobility Training,Transfer Training,Gait Training, Therapeutic Exercise,Balance Retraining,Discharge Planning, Hot or Cold Pack,Neuromuscular Re-ed,Coordination Retraining Other Recommendations and Next Treatment premedicate balance for pain Focus and alertness allowance mobility. Bed mob, transfers, standing tolerance for BSC use . Precautions Other Precautions falls Recommendations To Nursing Amount of Assist Needed 2 Person Assist,Mechanical Lift Discharge Recommendations PT Discharge Recommendations SNF Rehab Transportation Needs at Discharge Wheelchair/Cabulance,Stretcher /Ambulance
[2022-05-23 14:52] VITALS: BP 103/69; PULSE 73; RESP 16; TEMP 35.8; O2SAT 98
[2022-05-23] MEDS: ATORVASTATIN 20 MG TABLET PO (20:29)
[2022-05-23] MEDS: QUETIAPINE 25 MG TABLET 50 MG PO (20:29)
[2022-05-23 20:40] VITALS: BP 115/58; PULSE 73; RESP 18; TEMP 36.7; O2SAT 96
[2022-05-23 23:23] VITALS: O2SAT 96
[2022-05-24] VITALS (9 sets, daily range): BP systolic 97–124; BP diastolic 45–73; PULSE 69–75; RESP 14–18; TEMP 36.2–37.1; O2SAT 95–99
--- NOTE | 2022-05-24 04:07 | PC.NURSE ---
Pt oriented to self only. Pt screams and cries for help when repositioning and changing brief. Unable to perform IS due to disoriented state.
[2022-05-24] MEDS: ACETAMINOPHEN 325 MG TABLET 650 MG PO ×3 (06:08→18:12)
--- NOTE | 2022-05-24 07:47 | PM.PN.1 ---
Subjective Subjective Date Patient Seen: 05/24/22 Time Patient Seen: 07:47 Interval history: Patient is still struggling overnight with pain and to some element of confusion disorientation refusing assistance. During day is much more pleasant takes her medications gets great benefit out of the oxycodone per nursing staff as far as pain management. Up with physical therapy still requiring great deal of assistance plan is for correction discharge for rehabilitation before returning to assisted living at [facility] This morning she is alert does not really recognize me but is pleasant and interactive. Denies any pain whatsoever while she is lying in bed Exam Vital Signs (past 8 hours): - 05/24/22 00:51 05/24/22 03:00 05/24/22 04:00 Temperature 98.2 F 97.2 F L Pulse Rate 75 74 Respiratory Rate 18 18 Blood Pressure 115/59 L 124/69 Pulse Oximetry 97 97 97 Oxygen Delivery Method Room Air Oxygen Flow Rate 0 0 Oxygen Delivery Method Room Air Oxygen Flow Rate 0 Objective Labs Result Diagrams: 05/23/22 05:02 05/23/22 05:02 [facility] Medical History Abdominal pain Anxiety (09/16/13) Diverticulosis of large intestine Essential hypertension (02/24/11) History of adenomatous polyp of colon Hypertension Irritable bowel syndrome with diarrhea (09/13/16) Irritable bowel syndrome without diarrhea (05/28/15) Low back pain Lung nodule seen on imaging study (10/03/12) Mixed hyperlipidemia (02/24/11) Osteoporosis (02/24/11) Seizure Surgical History H/O colonoscopy History of appendectomy History of foot surgery Hx of appendectomy Social History marital status: number of children: 1 household members: none lives independently: Yes caregiver/support person: Yes (Step daughter) housing: apartment pets and animals: No education level: high school occupational status: other 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 Fall with rib fractures-continue supportive care and encourage use of oxycodone which seems to be helpful. 2. Osteoporosis-initiate bisphosphonate therapy probably in early June to allow for healing of ribs 3. Metabolic encephalopathy/acute delirium-patient clearly with underlying cognitive disorder and this is exacerbated by pain and change in surroundings particularly evident overnight. Fortunately patient has not been aggressive in any of her behavior she is been agitated and difficult to calm but during the day is much better. Continue with current medications including the quetiapine and of course the oxycodone for pain management. Patient has had some agitation altered behavior at her assisted living facility as well and has had lorazepam initiated there. I am going to initiate some lorazepam here as well. 4. Seizure disorder-continue with her Keppra as she show no evidence of seizures while taking this medication 5. Weakness-continue with skilled therapies with plan for discharge to correction 6. Disposition-plan for discharge to correction when medically stable. Given ongoing issues as above continue to monitor here in the hospital at least for the next 24-48 hours Note: Greater than 20 minutes total time was spent on day of service, evaluating the patient on the floor, including examining the patient, discussing clinical course with clinical and nursing staff, reviewing clinical course in the computer, preparing documentation and writing orders for continued management of care, discussing status with family as appropriate, reviewing plans for the next 24 hours with both patient/family and nursing staff as appropriate. COVID-19 COVID-19 status: Negative Result date/Date tested (Pos, Neg/Pending): 05/21/22 Quality VTE Deep Vein Thrombosis/Pulmonary Embolism Present on Admission: Yes
[2022-05-24] MEDS: AMLODIPINE 5 MG TABLET PO (09:21)
[2022-05-24] MEDS: levETIRAcetam 250 MG TABLET 500 MG PO ×2 (09:21→20:33)
[2022-05-24] MEDS: lisinopriL 20 MG TABLET 40 MG PO (09:21)
[2022-05-24] MEDS: ENOXAPARIN 30 MG/0.3 ML SYRINGE SUBCUT (09:21)
[2022-05-24] MEDS: QUETIAPINE 25 MG TABLET PO (09:21)
[2022-05-24] MEDS: CITALOPRAM 10 MG TABLET PO (09:21)
[2022-05-24] MEDS: SODIUM CHLORIDE 0.9% FLUSH 10 ML IV ×2 (09:22→20:34)
--- NOTE | 2022-05-24 11:04 | PT.IPTN ---
Current Diagnoses Cerebral infarction due to embolism of left middle cerebral artery (05/22/22) Unspecified convulsions (05/22/22) Multiple fractures of ribs, unspecified side, initial encounter for closed fracture (05/22/22) Physical Therapy Treatment Note M2 PT-IP Current Condition Start: 05/21/22 14:23 Freq: NEEDED Status: Active Protocol: Document 05/23/22 13:03 SP (Rec: 05/23/22 14:02 SP [id number]) Physical Therapy Current Condition Current Condition Evaluation Date 05/21/22 Treatment Diagnosis s/p Fall; R lat 5-6th rib fx; L 3-5th rib fx; generalized weakness Onset Date 05/21/22 M3 PT-IP Subjective Start: 05/21/22 14:23 Freq: NEEDED Status: Active Protocol: Document 05/24/22 10:54 KS (Rec: 05/24/22 11:57 KS [id number]) Subjective Physical Therapy Visit Type Type Treatment Note Visit Start Time 10:54 Visit Stop Time 11:04 Number of DAY SPA MANAGER Visits 3 Physical Therapy Visit Comments Patient Comments Pt agreeable to exercises in bed. M4 PT-IP Mobility and Gait Start: 05/21/22 14:23 Freq: NEEDED Status: Active Protocol: Document 05/24/22 10:54 KS (Rec: 05/24/22 11:57 KS [id number]) PT-Transfer Assessment Comments Mobility Comments Pt in bed upon arrival and not wanting to get out of bed but agreeable to LE exercises to promote blood flow and strengthening. Pt completed 2x10 bilateral ankle pumps and 1x10 SLR and quad sets on L side, unable to complete on R side and 1x10 glute sets. She required max verbal and tactile cues for all exercises . Left in bed w/ all needs in reach. M5 PT-IP Objective Assessments Start: 05/21/22 14:23 Freq: NEEDED Status: Active Protocol: Document 05/21/22 13:35 AB (Rec: 05/21/22 14:36 AB [id number]) Orientation Orientation/Cognition Level of Alertness Confusional State Orientation Name Language Function Ability Hard of Hearing Safety Awareness Decreased Safety Awareness Memory Description Short Term Impaired,Weatherization Coordinator Impaired Gross Range of Motion Lower Extremity ROM Impairments increas LE guarding and c/o pain with LE movement ; unable to assess Strength Comments Strength Comments unable to assess due to inicrease body guarding with mobility and pt has difficulty following instructions Muscle Tone Muscle Tone WNL Yes M6 PT-IP Treatment Start: 05/21/22 14:23 Freq: NEEDED Status: Active Protocol: Document 05/24/22 10:54 KS (Rec: 05/24/22 11:57 KS [id number]) Physical Therapy Treatment Exercises Exercises Ankle Pumps,Gluteal Sets,Quad Sets,Straight Leg Raises Education Education Provided Weight Bearing Status,Safety M7 PT-IP Assessment and Plan Start: 05/21/22 14:23 Freq: NEEDED Status: Active Protocol: Document 05/24/22 10:54 KS (Rec: 05/24/22 11:57 KS [id number]) PT Summary Assessment and Plan Potential Rehabilitation Potential Fair Summary Impairments Pain,ROM,Strength,Balance, Coordination,Sensation,Tone, Cognition,Bed Mobility, Transfers,Gait,Activity Tolerance Progress Towards Goals Slow Progress due to Pain,Slow Progress due to Activity Tolerance Assessment Summary Pt able to perform LE exercises while in bed w/ verbal and tactile cues. Difficulty performing w/ RLE. Pt will require SNF to improve strength, functional mobility , and activity tolerance. Goals Bed Mobility Goal Moderate Assistance Transfer Goal Moderate Assistance,Front Wheeled Walker Gait Goal Moderate Assistance,Front Wheel Walker Gait Distance 15 Days to Meet Goals 10 Frequency of Treatment Frequency Of Treatment Once a Day Treatment Plan Physical Therapy Treatment Plan Bed Mobility Training,Transfer Training,Gait Training, Therapeutic Exercise,Balance Retraining,Discharge Planning, Hot or Cold Pack,Neuromuscular Re-ed,Coordination Retraining Other Recommendations and Next Treatment premedicate balance for pain Focus and alertness allowance mobility. Bed mob, transfers, standing tolerance for BSC use . Precautions Other Precautions falls Recommendations To Nursing Amount of Assist Needed 2 Person Assist,Mechanical Lift Discharge Recommendations PT Discharge Recommendations SNF Rehab Transportation Needs at Discharge Wheelchair/Cabulance,Stretcher /Ambulance
[2022-05-24] MEDS: IBUPROFEN 600 MG TABLET PO (13:18)
[2022-05-24] MEDS: OXYCODONE IR 5 MG TABLET PO (13:18)
--- NOTE | 2022-05-24 14:39 | CM.DPNOTE ---
I called Mandie from to confirm if they will take patient. She did say yes and they will plan to roller picker patient approx. 1300. I communicated this to Lucrecia. Tami Ugalde, WALTER Assist.
--- NOTE | 2022-05-24 18:55 | PC.NURSE ---
Period today of being extremely disoriented. This is after her family left. Trying to get oob. Required assist of 3 to get her back to bed. Dr. Gomez called and notified of LOC, very confused, wanting to leave and go home. He came by to see pt. See new orders. Once family got her she was extremely happy to see them and quite happy. Will to allow care once again.
[2022-05-24] MEDS: QUETIAPINE 25 MG TABLET 50 MG PO (20:33)
[2022-05-24] MEDS: ATORVASTATIN 20 MG TABLET PO (20:34)
[2022-05-24] MEDS: SENNOSIDES 8.6 MG TABLET PO (20:34)
[2022-05-24] MEDS: LORazepam 2 MG/ML INJ 1 MG IV (22:00)
--- NOTE | 2022-05-24 22:11 | PC.NURSE ---
Pt does not know where she is, stating she is at [facility] term and [facility]' and that she wants to go home now. Pt constantly sitting up stating she needs to leave now and needs constant reorienting/reassurance. Ativan given. Sitter at bedside.
[2022-05-25 02:00] VITALS: O2SAT 98
[2022-05-25 03:00] VITALS: BP 140/66; PULSE 72; RESP 15; TEMP 36.3; O2SAT 98
[2022-05-25] MEDS: ACETAMINOPHEN 325 MG TABLET 650 MG PO ×2 (06:23→11:05)
[2022-05-25 07:00] VITALS: BP 112/66; PULSE 71; RESP 22; TEMP 36.3; O2SAT 97
--- NOTE | 2022-05-25 08:33 | PM.DS.1 ---
History of Present Illness History of Present Illness Date Patient Seen: 05/25/22 Time Patient Seen: 08:34 Chief complaint: GLF Narrative: 87-year-old female with a history of recent new diagnosis of seizure disorder and hip fracture with the admission to [facility] cerebrovascular accident hypertension hyperlipidemia and osteoporosis was admitted to the hospital after a traumatic fall and fracturing multiple ribs.0? Patient's primary care provider is Dr. Gomez.? Reviewed patient's emergency department notes as well as Dr. Gomez's previous notes and surgical consultation.? Discussed care with emergency room physician.? Patient lives in assisted living in [place].? Patient is not a very reliable historian.? She is complaining of hip pain as well as abdominal pain and discomfort.? Her respiratory rate is normal.? She knows she is in [place] [facility].? She is eating lunch without difficulty.? She denies any headache blurry vision.? He is pain in her chest no palpitations or shortness of breath.? Some mild abdominal pain. {from Dr. Major's H&P} Discharge Providers Provider Date of admission: 05/22/22 10:43 Discharge Date: 05/25/22 Primary care physician: Brain Gomez MD Consults: 05/21/22 11:30 Consult to Discharge Planning Routine Comment: Consult to Occupational Therapy Evaluate & Treat Comment: Physician Instructions: Evaluate and treat Consult to Physical Therapy Evaluate & Treat Comment: Physician Instructions: Evaluate and Treat 05/21/22 11:31 Consult to Respiratory Therapy Evaluate & Treat Comment: goal of 80% inspirority capcity or max 1500mL Physician Instructions: Baseline spriometry vol 05/24/22 03:04 Consult to Dietitian, Adult Routine Comment: Reason For Exam: poor oral intake Discharge provider: Brain Gomez MD Summary Hospital Course Discharge Diagnosis: 1. Ground level fall sustaining multiple rib fractures 2. Multiple rib fractures bilateral 3. Seizure disorder without recent seizure 4. Generalized anxiety disorder 5. Mild cognitive impairment 6. Irritable bowel syndrome with diarrhea and constipation 7. Essential hypertension 8. Mixed hyperlipidemia 9. Osteoporosis 10. Lung nodule and thyroid nodules felt to be benign, longstanding 11. Metabolic encephalopathy due to pain, injury, anxiety, and her underlying cognitive impairment in combination Hospital Course: Patient was admitted to the hospital after presenting as above falling in her assisted living facility sustaining multiple rib fractures and having severe pain. Pain was managed with oral oxycodone. Patient did have some evidence of metabolic encephalopathy with some at times agitated behavior. She had demonstrated some agitated behavior at her assisted living facility that was well controlled with very rare doses of lorazepam. Was felt as though her hospitalization resulted in increased such behavior secondary to pain injury and her underlying cognitive disorder. However she was calm and easily redirected Patient with relatively new seizure disorder felt to be secondary to a relatively recent CVA. She had no active evidence of seizure either as a cause of her fall or during this hospitalization. She will continue on her Keppra for control of her seizure disorder at this time Patient's other medical problems including hypertension hyperlipidemia anxiety etcetera were all stable. Status at Discharge Cognitive/behavioral status at discharge: confused Functional status at discharge: uses cane/walker Overall status at discharge: patient is progressing back to baseline Time Spent with Patient Time spent: Greater than 30 minutes Exam Vital Signs (past 8 hours): - 05/25/22 03:00 05/25/22 02:00 05/25/22 07:00 Temperature 97.4 F L 97.4 F L Pulse Rate 72 71 Respiratory Rate 15 22 Blood Pressure 140/66 112/66 Pulse Oximetry 98 98 97 Oxygen Delivery Method Room Air Oxygen Flow Rate 0 0 Oxygen Delivery Method Room Air Oxygen Flow Rate 0 Objective Labs Result Diagrams: 05/23/22 05:02 05/23/22 05:02 [facility] Medical History Abdominal pain Anxiety (09/16/13) Diverticulosis of large intestine Essential hypertension (02/24/11) History of adenomatous polyp of colon Hypertension Irritable bowel syndrome with diarrhea (09/13/16) Irritable bowel syndrome without diarrhea (05/28/15) Low back pain Lung nodule seen on imaging study (10/03/12) Mixed hyperlipidemia (02/24/11) Osteoporosis (02/24/11) Seizure Surgical History H/O colonoscopy History of appendectomy History of foot surgery Hx of appendectomy Social History marital status: number of children: 1 household members: none lives independently: Yes caregiver/support person: Yes (Step daughter) housing: apartment pets and animals: No education level: high school occupational status: other 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 hortencia/congregational: Zoroastrianism leisure activities: music, reading and other Smoking Status: Never smoker Tobacco: How many years used: 0 alcohol intake: current substance use type: does not use Discharge Assessment & Plan Assessment and Plan Plan of Treatment: Plan for discharge to intermediate to continue rehabilitation and monitoring Probably return to assisted living when much improved Discharge Plan Discharge Plan Patient Disposition: SNF Transfer to: [facility] Consult as needed: Dental, Hearing, Mental health, Podiatry and Vision Discharge orders & Medications Prescriptions: New oxycodone 5 mg Tablet 5 mg PO Q3H PRN (Reason: Pain, Moderate (4-6)) Qty: 30 0RF Continued amlodipine 5 mg tablet 5 mg PO DAILY Qty: 90 3RF clopidogrel 75 mg tablet 75 mg PO DAILY Qty: 90 3RF atorvastatin [Lipitor] 20 mg tablet 20 mg PO BEDTIME Qty: 90 3RF lisinopril 40 mg tablet 40 mg PO DAILY Qty: 90 1RF quetiapine 25 mg tablet See Rx Instructions .ROUTE .COMPLEX Qty: 360 3RF Rx Instructions: 25mg in am and hs, 50 mg in afternoon; levetiracetam 100 mg/mL solution 500 mg PO BID Qty: 473 3RF citalopram 10 mg tablet 10 mg PO DAILY Qty: 30 3RF aspirin 81 mg tablet,delayed release (DR/EC) 81 mg PO DAILY magnesium hydroxide [Milk of Magnesia] 400 mg/5 mL suspension 2,400 mg PO DAILY PRN (Reason: takes this way at home) docusate sodium 100 mg capsule 100 mg PO DAILY 19 29 mg iron- 1 mg tablet,chewable 1 tab PO DAILY thiamine HCl (vitamin B1) 100 mg tablet 100 mg PO DAILY lorazepam 1 mg tablet 1 mg PO TID PRN (Reason: agitation) Qty: 30 0RF acetaminophen 325 mg tablet 500 mg PO TID PRN (Reason: Pain (Scale Score 1-3)) Follow up/Referrals: Brain Gomez MD [Primary Care Provider] - Discharge Health Status Multidrug resistant organism: No MDRO Precautions: Newberry Diet/Activity/Treatments Diet: Diet as Tolerated Liquid consistency: Normal/Thin Food texture: Regular [facility] Reason for rehabilitation: Recovery r/t decondition Rehab type: Physical therapy, Occupational therapy and Speech therapy Discharge Data Primary Care Provider: Brain Gomez VTE Deep Vein Thrombosis/Pulmonary Embolism Present on Admission: Yes
--- NOTE | 2022-05-25 09:04 | CM.DPC ---
DCP Discharge SNF Per MD, pt is medically stable to d/c to SNF today and no identified barriers to discharge. AMBROCIO called [facility] and confirmed they can still accept pt today and can transport around [id number] and need updated COVID swab and request pain meds prior to transport. AMBROCIO updated RN who kindly will obtain COVID swab this morning and willing to get pain meds for pt prior to transport. AMBROCIO provided number to call report closer to d/c. AMBROCIO updated [employer] and a/c tech and called pt's brother/DPOA Aleksandar and updated on time of transport to [facility] today and he acknowledges agreement in d/c plan for today and will be bedside later this morning as well as pt's step-dtr E[place]. CC Tami kindly faxed PASRR, signed med list, two scripts to [facility] to review. Plan: Patient to d/c to [facility] today around [id number] prior to safe return to [facility]. KRYS [facility]
[2022-05-25 09:38] LABS: COVID19 -Nasal RAPID Negative (Negative)
[2022-05-25 11:00] VITALS: BP 114/70; PULSE 72; RESP 20; TEMP 36.6; O2SAT 98
[2022-05-25] MEDS: AMLODIPINE 5 MG TABLET PO (11:06)
[2022-05-25] MEDS: levETIRAcetam 250 MG TABLET 500 MG PO (11:06)
[2022-05-25] MEDS: lisinopriL 20 MG TABLET 40 MG PO (11:06)
[2022-05-25] MEDS: CITALOPRAM 10 MG TABLET PO (11:06)
[2022-05-25] MEDS: ENOXAPARIN 30 MG/0.3 ML SYRINGE SUBCUT (11:06)
[2022-05-25] MEDS: SODIUM CHLORIDE 0.9% FLUSH 10 ML IV (11:07)
[2022-05-25] MEDS: QUETIAPINE 25 MG TABLET PO (11:07)
--- NOTE | 2022-05-25 11:26 | PC.NURSE ---
Addendum entered by Olive Briceno R.N. 05/25/22 13:47: Patient shelli lifted to chair and is now over at [facility]. Report called to [facility]. Iv taken out earlier. Addendum entered by Olive Briceno R.N. 05/25/22 13:05: Patient given oxycodone 5mg for pain and transferring to [facility]. Original Note: Patient had a covid swab this am, this made her agitated but after done patient was sweet. She is alert and oriented x1 or 2. Forgetful and does not always follow direction well. She took her medication well with apple sauce. She will be leaving to go to [facility] at 1330. Will be medicated with oxycodone 1 hour prior to leaving and will do a brief change.
[2022-05-25] MEDS: OXYCODONE IR 5 MG TABLET PO (12:19)
== END 2022-05-25 13:47 | DRG 542 ==
LOC: ED 09:23 → AC 09:52
PROVIDERS: Emergency Medicine; Admitting Provider Family Medicine; Emergency Provider Emergency Medicine; PCP Internal Medicine; Referring Provider Emergency Medicine; Visit Provider Internal Medicine
DX: M80.0AXA Age-related osteoporosis with current pathological fracture, other site, initial encounter for fracture (principal); G93.41 Metabolic encephalopathy; E87.1 Hypo-osmolality and hyponatremia; G40.909 Epilepsy, unspecified, not intractable, without status epilepticus; I10 Essential (primary) hypertension; E78.5 Hyperlipidemia, unspecified; F41.1 Generalized anxiety disorder; K58.1 Irritable bowel syndrome with constipation; K58.0 Irritable bowel syndrome with diarrhea; R41.89 Other symptoms and signs involving cognitive functions and awareness; I69.398 Other sequelae of cerebral infarction; Z20.822 Contact with and (suspected) exposure to COVID-19; Z66 Do not resuscitate
CPT/HCPCS: 36415; 36592; 70450; 71250; 72125; 73502; 73552; 74176; 80053; 85025; 87635; 97110; 97163; 97166; 97530; 99219; 99232; 99238; 99284; C9803; G0378; J1650; J2060

== ENCOUNTER 2022-10-01 11:27 | Emergency (ER) | payer MEDICARE, OTHER, SELFPAY ==
[2022-08-09 15:07] VITALS: BMI 15.6
[2022-10-01 11:35] VITALS: BP 109/62; PULSE 97; RESP 16; TEMP 37.3; O2SAT 95; BMI 20.5
--- NOTE | 2022-10-01 13:21 | ED.SKABFB ---
HPI - Skin/Abscess/Foreign Bdy General Chief complaint: Skin/Abscess/Foreign Body Stated complaint: vaginal cyst Time Seen by Provider: 10/01/22 13:10 Source: patient and family Mode of arrival: Ambulatory Limitations: no limitations History of Present Illness HPI narrative: Patient is an 87-year-old female who is here for evaluation of what was initially reported as a cyst around her vagina. Patient's family states she has had something like this in the past that has needed drained. They are unsure when the present 1 presented but they noticed it within the past 24 hours. The patient denies any pain. No reported problems with bowel movements or urination. Related Data Home Medications Medication Instructions Recorded Confirmed acetaminophen 325 mg tablet 500 mg PO TID PRN Pain (Scale 06/09/20 09/02/22 Score 1-3) aspirin 81 mg tablet,delayed 81 mg PO DAILY 03/15/22 09/02/22 release docusate sodium 100 mg capsule 100 mg PO DAILY 03/15/22 09/02/22 magnesium hydroxide 400 mg/5 mL 2,400 mg PO DAILY PRN takes this 03/15/22 09/02/22 oral suspension (Milk of Magnesia) way at home vitamin no.115-iron 29 1 tab PO DAILY 03/15/22 09/02/22 mg-folic acid 1 mg chewable tablet ( 19) thiamine HCl (vitamin B1) 100 mg 100 mg PO DAILY 03/15/22 09/02/22 tablet Previous Rx's Medication Instructions Recorded levetiracetam 100 mg/mL oral 500 mg (5 mL) PO BID #473 mL 03/29/22 solution oxycodone 5 mg tablet 5 mg PO Q3H PRN Pain, Moderate 05/24/22 (4-6) #30 tabs lorazepam 1 mg tablet 1 mg PO TID PRN agitation #30 tabs 06/23/22 quetiapine 25 mg tablet See Rx Instructions .Route 07/11/22 .COMPLEX #360 tabs citalopram 10 mg tablet 10 mg PO DAILY #30 tabs 07/19/22 clopidogrel 75 mg tablet 75 mg PO DAILY #90 tabs 07/27/22 lidocaine HCl 2 % topical cream 1 applic topical BID #118 mL 08/12/22 amlodipine 5 mg tablet 5 mg PO DAILY #90 tabs 08/19/22 lisinopril 40 mg tablet 40 mg PO DAILY #90 tabs 09/02/22 atorvastatin 20 mg tablet (Lipitor) 20 mg PO BEDTIME #90 tabs 09/12/22 Allergies Allergy/AdvReac Type Severity Reaction Status Date / Time lidocaine AdvReac Severe RASH, Verified 09/02/22 10:51 BURNED HER levofloxacin [From LEVAQUIN] AdvReac Unknown dizziness, Verified 09/02/22 10:51 not sure if related or not...08/30/16 Review of Systems Review of Systems ROS Unobtainable: All systems reviewed & are unremarkable except as noted in HPI and below Constitutional Constitutional: Reports system reviewed and no additional complaints, except as documented Genitourinary Genitourinary: Reports system reviewed and no additional complaints, except as documented Integumentary/Breasts Skin/Breast: Reports system reviewed and no additional complaints, except as documented Hematologic/Lymphatic On Anticoagulants: No Patient History Medical History Abdominal pain Anxiety (09/16/13) Dementia Diverticulosis of large intestine Essential hypertension (02/24/11) History of adenomatous polyp of colon Hypertension Irritable bowel syndrome with diarrhea (09/13/16) Irritable bowel syndrome without diarrhea (05/28/15) Low back pain Lung nodule seen on imaging study (10/03/12) Mixed hyperlipidemia (02/24/11) Open wound of genital labia Osteoporosis (02/24/11) Seizure Surgical History H/O colonoscopy History of appendectomy History of foot surgery Hx of appendectomy Social History marital status: number of children: 1 household members: none lives independently: Yes caregiver/support person: Yes (Step daughter) housing: apartment pets and animals: No education level: high school occupational status: other 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: [employer] leisure activities: music, reading and other Smoking Status: Never smoker Tobacco: How many years used: 0 alcohol intake: current substance use type: does not use Smoking Status: Never smoker alcohol intake frequency: holidays/special occasions only Alcohol type: wine Substance Use Type: does not use Exam Initial Vital Signs Initial Vital Signs: Vital Signs Temperature 99.2 F 10/01/22 11:35 Pulse Rate 97 H 10/01/22 11:35 Respiratory Rate 16 10/01/22 11:35 Blood Pressure 109/62 10/01/22 11:35 Pulse Oximetry 95 10/01/22 11:35 Oxygen Delivery Method Room Air 10/01/22 11:35 HENMT Head: normal to inspection and normocephalic GI Inspection: normal to inspection Other: Patient has a small 1 cm x 1 cm buttock on her left buttock Other: Normal external female Skin Other: 1 cm x 1 cm abscess left buttock Procedures Abscess I/D I&D #1: Site: other (Buttock) Local Anesthetic: bupivacaine 0.25% Amount of anesthesia used (mL): 2 Technique: incised with #11 blade Course Vital Signs Vital signs: Vital Signs - 8 hr 10/01/22 11:35 Temperature 99.2 F Pulse Rate 97 H Respiratory Rate 16 Blood Pressure 109/62 Pulse Oximetry 95 Oxygen Delivery Method Room Air MDM - Skin/Abscess/Foreign Bdy MDM Narrative Medical decision making narrative: Patient does not have a vaginal cyst but does have a cyst in the left buttock. This is not consistent with a perianal or perirectal abscess. It was drained after bedside ultrasound did show abscess. There is no surrounding cellulitis so will hold on any antibiotics. Family was given care instructions and return precautions Discharge Plan Departure Patient Disposition: Home Clinical Impression: Abscess of skin Instructions: DI for Skin Abscess Activity Restrictions/Additional Instructions: I would expect some oozing from the area however you can keep covered with a bandage. If this were to happen again I would recommend follow-up with General surgery. Contact her primary doctor for a follow-up. Prescriptions: No Action levetiracetam 100 mg/mL solution 500 mg PO BID Qty: 473 3RF lorazepam 1 mg tablet 1 mg PO TID PRN (Reason: agitation) Qty: 30 0RF quetiapine 25 mg tablet See Rx Instructions .ROUTE .COMPLEX Qty: 360 3RF Rx Instructions: 25mg in am and hs, 50 mg in afternoon; citalopram 10 mg tablet 10 mg PO DAILY Qty: 30 12RF clopidogrel 75 mg tablet 75 mg PO DAILY Qty: 90 3RF amlodipine 5 mg tablet 5 mg PO DAILY Qty: 90 3RF lisinopril 40 mg tablet 40 mg PO DAILY Qty: 90 1RF atorvastatin [Lipitor] 20 mg tablet 20 mg PO BEDTIME Qty: 90 0RF aspirin 81 mg tablet,delayed release (DR/EC) 81 mg PO DAILY magnesium hydroxide [Milk of Magnesia] 400 mg/5 mL suspension 2,400 mg PO DAILY PRN (Reason: takes this way at home) docusate sodium 100 mg capsule 100 mg PO DAILY 19 29 mg iron- 1 mg tablet,chewable 1 tab PO DAILY thiamine HCl (vitamin B1) 100 mg tablet 100 mg PO DAILY lidocaine HCl 2 % cream 1 applic topical BID Qty: 118 0RF Rx Instructions: Apply to wound after sitz bath. Cover with gauze. oxycodone 5 mg Tablet 5 mg PO Q3H PRN (Reason: Pain, Moderate (4-6)) Qty: 30 0RF acetaminophen 325 mg tablet 500 mg PO TID PRN (Reason: Pain (Scale Score 1-3)) Referrals: Brain Gomez MD [Primary Care Provider] - Dani Hong MD [Physician] - Stand Alone Forms: Patient Portal/API
--- NOTE | 2022-10-01 13:42 | PC.NURSE ---
assisted dr. Christie.
[2022-10-01 13:49] VITALS: BP 153/80; PULSE 98; RESP 18; O2SAT 98
== END 2022-10-01 13:50 | disposition home or self-care (01) ==
PROVIDERS: Emergency Provider Emergency Medicine; PCP Internal Medicine
DX: L02.31 Cutaneous abscess of buttock (principal)
CPT/HCPCS: 10060; 99281; 99283

== ENCOUNTER 2022-10-26 05:57 | Inpatient (IN) | payer MEDICARE, OTHER, SELFPAY ==
[2022-08-09 15:07] VITALS: BMI 15.6
[2022-10-26] VITALS (8 sets, daily range): BP systolic 128–177; BP diastolic 76–87; PULSE 70–95; RESP 17–70; TEMP 36.5–36.9; O2SAT 95–98; BMI 20.7; BMI 18.1
--- NOTE | 2022-10-26 06:02 | DI.RAD.S_ITS ---
PROCEDURE: XR LUMBAR SPINE 2-3V INDICATIONS: fall, low back and hip pain TECHNIQUE: Three views of the lumbar spine were acquired. COMPARISON: [facility], CT, CT CHEST ABD PEL WO CON, 05/21/2022, 5:29. [facility], CR, XR LUMBAR SPINE 2-3V, 02/18/2020, 14:29. FINDINGS: Bones: 5 [id number] vertebrae are present. Mild levoconvex curvature of the lumbar spine. Severe generalized osteopenia is present. Multilevel compression fractures are seen, most notably at the T11 and T12 levels, which appears similar when compared to the CT from 05/21/2022. No definite acute fracture. Multilevel spondylosis. No suspicious bony lesions. Postsurgical changes are partially imaged in the right hip. Soft tissues: Overlying bowel gas pattern is normal. No suspicious soft tissue calcifications. IMPRESSION: 1. Limited evaluation due to radiographic technique and osteopenia. 2. Remote prior compression fractures at T11 and T12 do not appear significantly changed when compared to the CT from 05/21/2022. 3. No definite acute vertebral compression fracture. If there is continued clinical concern, consider MRI or CT for further evaluation. There is no significant discrepancy when compared to the overnight preliminary report. Approved by: Cristiano Mccauley M.D. on 10/26/2022 at 8:10
--- NOTE | 2022-10-26 06:02 | DI.RAD.S_ITS ---
PROCEDURE: XR HIP W PEL IF DONE RT 2V INDICATIONS: fall, right hip pain TECHNIQUE: AP pelvis with lateral view of the right hip. COMPARISON: [facility], CT, CT HEAD/BRAIN WO CON, 05/21/2022, 5:29. [facility], CT, CT CHEST ABD PEL WO CON, 05/21/2022, 5:29. [facility], CR, XR HIP W PEL IF DONE RT 2V, 05/21/2022, 6:59. [facility], CR, XR HIP W PEL IF DONE RT 2V, 12/20/2020, 10:33. [facility], CR, XR HIP W PEL IF DONE RT 2V, 10/10/2019, 11:00. [facility], CR, XR HIP W PEL IF DONE RT 2V, 09/20/2019, 17:41. FINDINGS: Bones: Postsurgical changes are seen from right proximal femoral fracture fixation with a gamma nail type device. Hardware is intact. No perihardware fracture. Generalized osteopenia. There is cortical irregularity at the right inferior pubic ramus that is slightly more prominent when compared to the radiographs from 05/19/2022. No suspicious bony lesions. Soft tissues: The visualized bowel gas pattern is normal. No suspicious soft tissue calcifications. Arterial vascular calcifications are present. IMPRESSION: 1. Osseous irregularity of the right inferior pubic ramus appears slightly more prominent when compared to prior exams, which is most likely related to the obliquity of the projection, but superimposed acute injury is not excluded. 2. Stable postsurgical changes in the right proximal femur. There is no significant discrepancy when compared to the overnight preliminary report. Approved by: Cristiano Mccauley M.D. on 10/26/2022 at 8:15
--- NOTE | 2022-10-26 06:04 | ED.FALL ---
HPI - Fall General Chief Complaint: Fall Stated Complaint: r hip pain Time Seen by Provider: 10/26/22 05:57 Mode of arrival: EMS History of Present Illness HPI Narrative: 87-year-old woman with a history of memory loss, prior stroke, hypertension, seizures had a mechanical fall last night where she landed on her bottom. She was able to get up with help of her family not complaining of pain at the time. When she awoke this morning she is complaining of some right pain and family called 911 to help her come in for further assessment. Patient has fairly significant cognitive deficits and does not recall much of the event. She states she is doing well and has no complaints of pain. No recent reports of fever, cough, chills, abdominal pain. Related Data Home Medications Medication Instructions Recorded Confirmed acetaminophen 325 mg tablet 500 mg PO TID PRN Pain (Scale 06/09/20 10/03/22 Score 1-3) aspirin 81 mg tablet,delayed 81 mg PO DAILY 03/15/22 10/03/22 release docusate sodium 100 mg capsule 100 mg PO DAILY 03/15/22 10/03/22 magnesium hydroxide 400 mg/5 mL 2,400 mg PO DAILY PRN takes this 03/15/22 10/03/22 oral suspension (Milk of Magnesia) way at home vitamin no.115-iron 29 1 tab PO DAILY 03/15/22 10/03/22 mg-folic acid 1 mg chewable tablet ( 19) Vitamin B12 1 tab PO DAILY 10/03/22 Previous Rx's Medication Instructions Recorded levetiracetam 100 mg/mL oral 500 mg (5 mL) PO BID #473 mL 03/29/22 solution quetiapine 25 mg tablet See Rx Instructions .Route 07/11/22 .COMPLEX #360 tabs citalopram 10 mg tablet 10 mg PO DAILY #30 tabs 07/19/22 clopidogrel 75 mg tablet 75 mg PO DAILY #90 tabs 07/27/22 lidocaine HCl 2 % topical cream 1 applic topical BID #118 mL 08/12/22 lisinopril 40 mg tablet 40 mg PO DAILY #90 tabs 09/02/22 atorvastatin 20 mg tablet (Lipitor) 20 mg PO BEDTIME #90 tabs 09/12/22 sulfamethoxazole 800 1 tab PO BID #20 tabs 10/03/22 mg-trimethoprim 160 mg tablet lorazepam 1 mg tablet 1 mg PO TID PRN agitation #30 tabs 10/06/22 Allergies Allergy/AdvReac Type Severity Reaction Status Date / Time lidocaine AdvReac Severe RASH, Verified 10/03/22 09:33 BURNED HER levofloxacin [From LEVAQUIN] AdvReac Unknown dizziness, Verified 10/03/22 09:33 not sure if related or not...08/30/16 Review of Systems Review of Systems Narrative: Pertinent positive and negative findings as per HPI Patient History Medical History Abdominal pain Anxiety (09/16/13) Dementia Diverticulosis of large intestine Essential hypertension (02/24/11) History of adenomatous polyp of colon Hypertension Irritable bowel syndrome with diarrhea (09/13/16) Irritable bowel syndrome without diarrhea (05/28/15) Low back pain Lung nodule seen on imaging study (10/03/12) Mixed hyperlipidemia (02/24/11) Multiple fractures of rib involving four or more ribs Open wound of genital labia Osteoporosis (02/24/11) Seizure Surgical History H/O colonoscopy History of appendectomy History of foot surgery Hx of appendectomy Social History marital status: number of children: 1 household members: none lives independently: Yes caregiver/support person: Yes (Step daughter) housing: apartment pets and animals: No education level: high school occupational status: other 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 leisure activities: music, reading and other Smoking Status: Never smoker Tobacco: How many years used: 0 alcohol intake: current substance use type: does not use Smoking Status: Never smoker alcohol intake frequency: holidays/special occasions only Alcohol type: wine Substance Use Type: does not use Exam Initial Vital Signs Initial Vital Signs: Vital Signs Temperature 97.7 F 10/26/22 05:56 Pulse Rate 77 10/26/22 05:56 Respiratory Rate 18 10/26/22 05:56 Blood Pressure 150/76 H 10/26/22 05:56 Pulse Oximetry 98 10/26/22 05:56 Oxygen Delivery Method Room Air 10/26/22 05:56 General: Frail appearing, in no acute distress. Able to cooperate with exam HEENT: Moist mucous membranes, normal sclera with reactive pupils, Neck: No tenderness to palpation along midline cervical spine Respiratory: Lungs are clear to auscultation, no wheezing no rales no rhonchi. Full and symmetrical air movement Cardiac: Regular rate and rhythm no murmurs no bruits Abdomen: Soft, nontender, good bowel tones, no flank pain Skin: Warm and dry, no rashes, very thin Neurologic: Grossly neurologically intact with no obvious asymmetries and cognitive exam seems to be at baseline Extremities: No obvious trauma, well perfused. Questionable tenderness with manipulation of her pelvic ring and questionable tenderness with external rotation of the right hip. Possible tenderness along the lower lumbar area when she sits. Psych: Cognitive deficits with poor overall difficulty in communicating pain or additional physical findings Course Orders Ordered: ED Orders 10/26/22 06:02 XR hip w pel if done RT 2V Stat XR lumbar spine 2-3V Stat Discontinued Medications Acetaminophen (Acetaminophen 325 Mg Tablet) 650 mg PO NOW ONE Stop: 10/26/22 06:03 Last Admin: 10/26/22 06:11 Dose: 650 mg Documented By: GLENIS Vital Signs Vital signs: Vital Signs - 8 hr 10/26/22 05:56 Temperature 97.7 F Pulse Rate 77 Respiratory Rate 18 Blood Pressure 150/76 H Pulse Oximetry 98 Oxygen Delivery Method Room Air MDM - Fall Treatment and disposition Code Status and discussions:: Advanced directives from January 05, 2021 indicate no artificial nutrition, hydration, intubation or CPR MDM Narrative Medical decision making narrative: CC: Mechanical fall at home last night onto her buttock. This morning noticing some right hip pain Complicating co-morbidities: Cognitive decline, prior stroke Data collected from: patient, medics. Daughter arrives at 6:15 a.m. and has a additional information. She states that her mother had walked into the kitchen last night using her walker lost balance and landed hard on her buttocks but did not hit her head or seemed hurt anything else. The daughter and grandson were able to help her into her wheelchair and then onto a couch and she seem to be doing okay with no pain complaints. She apparently awoke at 3:00 a.m. this morning crying and was unable to be consoled which was when the daughter chose to call 911 to have her mother further evaluated. Social determinants of health that may influence the patients condition: Age, frailty Medical records reviewed: Family practice visit from August 09 and internal medicine visit from July 04 are reviewed. Both indicate significant cognitive decline. She was admitted to the hospital and discharged home to group home facility in May. From there went to an adult family home. Differential considered: Hip fracture, pelvic ring fracture, compression fracture of the lumbar spine, contusion without acute bony injury Exam documented above, pertinent findings include: No obvious nor specific point tenderness. Mild tenderness along the lower lumbar spine along the left ischial tuberosity and with external rotation of the left hip. Lab Test are not indicated with today's visit Imaging studies independently reviewed: X-ray pelvis and right hip do not show any acute pelvic ring fractures or hip fractures X-ray of the lumbar spine do not show any acute compression fractures Discussion: Findings reviewed with patient and her daughter. Did discuss the large stool volume that was appreciated on the x-rays. Her daughter notes she typically takes a stool softener but is getting to the point with her cognitive deficits that she typically does not recognize when she needs to have a bowel movement. We did discuss how people are typically more sore in the 24-48 hours after a fall and I suspect that is what Mahsa is experiencing rather than any acute fracture. Mahsa responded nicely to Tylenol. This point she is safe for discharge home Discharge Plan Departure Patient Disposition: Home Clinical Impression: Fall Qualifiers: Encounter type: initial encounter Qualified Code(s): W19.XXXA - Unspecified fall, initial encounter Contusion of hip, right Qualifiers: Encounter type: initial encounter Qualified Code(s): S70.01XA - Contusion of right hip, initial encounter Activity Restrictions/Additional Instructions: Thank you for bringing your mom in [facility] Fortunately, the x-rays do not show any acute hip, pelvic or lumbar spine fractures. I suspect that she is sore after her fall last night. I would anticipate that in the 1st 24-48 hours after that fall she will be tender. It is okay to use Tylenol to help with pain control. Would encourage her to be up and walking somewhat. If you new concerns or additional findings, please feel free to return to the emergency department Prescriptions: No Action levetiracetam 100 mg/mL solution 500 mg PO BID Qty: 473 3RF quetiapine 25 mg tablet See Rx Instructions .ROUTE .COMPLEX Qty: 360 3RF Rx Instructions: 25mg in am and hs, 50 mg in afternoon; citalopram 10 mg tablet 10 mg PO DAILY Qty: 30 12RF clopidogrel 75 mg tablet 75 mg PO DAILY Qty: 90 3RF lisinopril 40 mg tablet 40 mg PO DAILY Qty: 90 1RF atorvastatin [Lipitor] 20 mg tablet 20 mg PO BEDTIME Qty: 90 0RF lorazepam 1 mg tablet 1 mg PO TID PRN (Reason: agitation) Qty: 30 0RF aspirin 81 mg tablet,delayed release (DR/EC) 81 mg PO DAILY magnesium hydroxide [Milk of Magnesia] 400 mg/5 mL suspension 2,400 mg PO DAILY PRN (Reason: takes this way at home) docusate sodium 100 mg capsule 100 mg PO DAILY 19 29 mg iron- 1 mg tablet,chewable 1 tab PO DAILY Vitamin B12 500 mg 1 tab PO DAILY sulfamethoxazole-trimethoprim 800-160 mg tablet 1 tab PO BID Qty: 20 1RF lidocaine HCl 2 % cream 1 applic topical BID Qty: 118 0RF Rx Instructions: Apply to wound after sitz bath. Cover with gauze. acetaminophen 325 mg tablet 500 mg PO TID PRN (Reason: Pain (Scale Score 1-3)) Referrals: Brain Gomez MD [Primary Care Provider] - Stand Alone Forms: Patient Portal/API
[2022-10-26] MEDS: ACETAMINOPHEN 325 MG TABLET 650 MG PO ×2 (06:11→14:30)
--- NOTE | 2022-10-26 07:27 | PC.NURSE ---
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 When the patient was asked to take a few steps with the assistance of a walker, she was unable to due to severe pain in her right leg.
--- NOTE | 2022-10-26 09:07 | ED_ITS ---
HPI - Fall General Chief Complaint: Fall Stated Complaint: r hip pain Time Seen by Provider: 10/26/22 05:57 Source: family (Daughter) Mode of arrival: EMS Limitations: no limitations History of Present Illness HPI Narrative: This 87-year-old lady with history of dementia, prior stroke, and seizures is ambulatory at home with her walker. Without provocation she fell backwards while standing her walker about 9:00 p.m. last night landing on her buttocks. Her daughter is the historian. There was no obvious head, neck or torso injury. The patient arrives with complaints of right hip pain. The patient does not recall the event. She has significant memory deficits. There has been no recent illness. She is no fever, chills, cough or dyspnea. She has a surgical history of prior right IDANIA. On her initial assessment, right hip x-ray did not identify a fracture. Discharged home was planned. The patient failed an ambulation test by the nurses. She could not stand and support her weight even with the use of a walker. Related Data Home Medications Medication Instructions Recorded Confirmed acetaminophen 325 mg tablet 500 mg PO TID PRN Pain (Scale 06/09/20 10/03/22 Score 1-3) aspirin 81 mg tablet,delayed 81 mg PO DAILY 03/15/22 10/03/22 release docusate sodium 100 mg capsule 100 mg PO DAILY 03/15/22 10/03/22 magnesium hydroxide 400 mg/5 mL 2,400 mg PO DAILY PRN takes this 03/15/22 10/03/22 oral suspension (Milk of Magnesia) way at home vitamin no.115-iron 29 1 tab PO DAILY 03/15/22 10/03/22 mg-folic acid 1 mg chewable tablet ( 19) Vitamin B12 1 tab PO DAILY 10/03/22 Previous Rx's Medication Instructions Recorded levetiracetam 100 mg/mL oral 500 mg (5 mL) PO BID #473 mL 03/29/22 solution quetiapine 25 mg tablet See Rx Instructions .Route 07/11/22 .COMPLEX #360 tabs citalopram 10 mg tablet 10 mg PO DAILY #30 tabs 07/19/22 clopidogrel 75 mg tablet 75 mg PO DAILY #90 tabs 07/27/22 lidocaine HCl 2 % topical cream 1 applic topical BID #118 mL 08/12/22 lisinopril 40 mg tablet 40 mg PO DAILY #90 tabs 09/02/22 atorvastatin 20 mg tablet (Lipitor) 20 mg PO BEDTIME #90 tabs 09/12/22 sulfamethoxazole 800 1 tab PO BID #20 tabs 10/03/22 mg-trimethoprim 160 mg tablet lorazepam 1 mg tablet 1 mg PO TID PRN agitation #30 tabs 10/06/22 Allergies Allergy/AdvReac Type Severity Reaction Status Date / Time lidocaine AdvReac Severe RASH, Verified 10/03/22 09:33 BURNED HER levofloxacin [From LEVAQUIN] AdvReac Unknown dizziness, Verified 10/03/22 09:33 not sure if related or not...08/30/16 Review of Systems Review of Systems ROS Unobtainable: All systems reviewed & are unremarkable except as noted in HPI and below and Other ( Limited due to her medical situation.) Patient History Medical History (Updated 10/26/22 @ 12:00 by Ari Goodwin MD) Abdominal pain Anxiety (09/16/13) Dementia Diverticulosis of large intestine Essential hypertension (02/24/11) History of adenomatous polyp of colon Hypertension Irritable bowel syndrome with diarrhea (09/13/16) Irritable bowel syndrome without diarrhea (05/28/15) Low back pain Lung nodule seen on imaging study (10/03/12) Mixed hyperlipidemia (02/24/11) Multiple fractures of rib involving four or more ribs Open wound of genital labia Osteoporosis (02/24/11) Seizure Surgical History (Updated 10/26/22 @ 11:48 by Ari Goodwin MD) H/O colonoscopy History of appendectomy History of foot surgery History of right hip replacement Hx of appendectomy Social History marital status: number of children: 1 household members: none lives independently: Yes caregiver/support person: Yes (Step daughter) housing: apartment pets and animals: No education level: high school occupational status: other 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/pentecostalism: Sabianist leisure activities: music, reading and other Smoking Status: Never smoker Tobacco: How many years used: 0 alcohol intake: current substance use type: does not use Smoking Status: Never smoker alcohol intake frequency: holidays/special occasions only Alcohol type: wine Substance Use Type: does not use Exam Initial Vital Signs Initial Vital Signs: Vital Signs Temperature 97.7 F 10/26/22 05:56 Pulse Rate 77 10/26/22 05:56 Respiratory Rate 18 10/26/22 05:56 Blood Pressure 150/76 H 10/26/22 05:56 Pulse Oximetry 98 10/26/22 05:56 Oxygen Delivery Method Room Air 10/26/22 05:56 Const General: in distress, anxious and frail appearing Orientation: Orientation ( oriented to person.) Limitations: altered mental status [facility] Head: normocephalic and atraumatic Eyes General: Yes appearance normal, both eyes and all related structures Neck Neck: full ROM and No tender Chest Chest: normal inspection of the chest Resp Auscultation: clear to auscultation bilaterally Cardio Rate: regular rate Rhythm: regular rhythm Heart Sounds: S1 normal and S2 normal GI Inspection: normal to inspection Palpation: No tender Back/Spine/Pelvis Back: other ( Mild lumbar tenderness without deformity.) Skin General: no rashes or lesions noted Neuro General: patient alert, patient awake and oriented ( Time and place) Extrem Other: anterior right hip tenderness, no palpable placement or palpable abnormality. No femur tenderness. Slight tenderness to the right foot without obvious injury or deformity. No calf edema. Right dorsalis pedis pulses normal. Psych Mood: anxious mood Attitude: cooperative and other ( she is upset with the situation facing her. ) Course Course Course Narrative: The patient felt ambulation, my exam revealed anterior pelvis pain as well as hip pain. CT revealed a nondisplaced fracture to the right inferior pubic rami and medial wall of the right acetabulum. It is noted she has prior right IDANIA. The situation was discussed with her PCM, Dr. Gomez. She will be admitted. Dr. Nelson, orthopedics is consulted. Orders Ordered: ED Orders 10/26/22 06:02 XR hip w pel if done RT 2V Stat XR lumbar spine 2-3V Stat 10/26/22 09:07 CT pelvis wo con Stat 10/26/22 09:30 XR foot RT 2V Stat 10/26/22 11:28 CBC Auto Diff [Complete Blood Count AUTO DIFF] Stat PT [Prothrombin Time INR] Stat 10/26/22 11:32 CMP [Comprehensive Metabolic Panel] Stat Discontinued Medications Acetaminophen (Acetaminophen 325 Mg Tablet) 650 mg PO NOW ONE Stop: 10/26/22 06:03 Last Admin: 10/26/22 06:11 Dose: 650 mg Documented By: GLENIS Morphine Sulfate (Morphine 2 Mg/Ml Inj) 2 mg IV NOW ONE Stop: 10/26/22 11:29 Tramadol HCl (Tramadol 50 Mg Tablet) 50 mg PO NOW ONE Stop: 10/26/22 09:08 Last Admin: 10/26/22 09:30 Dose: 50 mg Documented By: JOSHUA Vital Signs Vital signs: Vital Signs - 8 hr 10/26/22 05:56 10/26/22 10:35 10/26/22 08:45 Temperature 97.7 F Pulse Rate 77 70 Respiratory Rate 18 20 70 H Blood Pressure 150/76 H 177/84 H 175/80 H Pulse Oximetry 98 98 98 Oxygen Delivery Method Room Air Room Air MDM - Fall Imaging Data Right hip x-ray:: Radiologist's Impression: 1. Osseous irregularity of the right inferior pubic ramus appears slightly more prominent when compared to prior exams, which is most likely related to the obliquity of the projection, but superimposed acute injury is not excluded. 2. Stable postsurgical changes in the right proximal femur. Lumbar x-ray:: Radiologist's Impression: 1. Limited evaluation due to radiographic technique and osteopenia. 2. Remote prior compression fractures at T11 and T12 do not appear significantly changed when compared to the CT from 05/21/2022.? 3. No definite acute vertebral compression fracture. Right foot x-ray:: Radiologist's Impression: Osteopenia without displaced fracture Pelvic CT:: Radiologist's Impression: Nondisplaced fractures through the right inferior pubic ramus and medial wall of the right acetabulum Critical Care Time Critical Care Time Critical Care Time: Yes Total Critical Care Time: 60 Attestation: Time includes initial patient assessment, review of prior medical records i ncluding her prior assessment today. Time includes review of multiple radiology evaluations. I have consulted with her PCM as well as Orthopedics. The situation was explained to the patient as well as the patient's daughter. Discharge Plan Departure Patient Disposition: Admitted As Inpatient Clinical Impression: Closed pelvic fracture, Fall, Anxiety, Seizure, Dementia, Essential hypertension, History of stroke Admit Date/Time: 10/26/22 11:37 Admit Provider: Brain Gomez
--- NOTE | 2022-10-26 09:07 | DI.CT.S_ITS ---
PROCEDURE: CT PEL WO CON INDICATIONS: Fall, right hp/pelvis pain TECHNIQUE: 5 mm thick sections acquired from the iliac crests to the symphysis. 5 mm coronal and sagittal reformats were then performed. For radiation dose reduction, the following was used: automated exposure control, adjustment of mA and/or kV according to patient size. COMPARISON: [facility], CR, XR HIP W PEL IF DONE RT 2V, 10/26/2022, 6:06. FINDINGS: Nondisplaced fracture through the right inferior pubic ramus as well as the medial wall of the right acetabulum. Right femoral neck screw in nail well positioned without evidence of hardware failure or loosening. Degenerative arthropathy noted in lower lumbar spine. Dense atherosclerotic vascular calcification present. Small calcified uterine fibroid. Urinary bladder distended IMPRESSION: Nondisplaced fractures through the right inferior pubic ramus and medial wall of the right acetabulum Approved by: Kip Patel M.D. on 10/26/2022 at 9:46
[2022-10-26] MEDS: TRAMADOL 50 MG TABLET PO (09:30)
--- NOTE | 2022-10-26 09:30 | DI.RAD.S_ITS ---
PROCEDURE: XR FOOT RT 2V INDICATIONS: foot pain TECHNIQUE: 3 views of the foot were acquired. COMPARISON: None. FINDINGS: Bones: No fractures or dislocations. No suspicious bony lesions. Generalized decrease in osseous mineralization noted. Soft tissues: No tibiotalar joint effusion. Achilles tendon appears normal. Diffuse atherosclerotic vascular calcification noted. IMPRESSION: Osteopenia without displaced fracture Approved by: Kip Patel M.D. on 10/26/2022 at 9:57
--- NOTE | 2022-10-26 11:33 | PM.HP.1 ---
History of Present Illness History of Present Illness Date Patient Seen: 10/26/22 Time Patient Seen: 11:33 Chief complaint: r hip pain Narrative: 87-year-old [place] female well known to me who apparently had a fall night prior to admission. She was able to get up and move some and went to bed. She lives with her daughter and requires a walker for ambulation. However when she woke up this morning she was in much more pain really unable to ambulate or even bear weight. She was transported to [facility] Emergency Department where she was evaluated and eventually after multiple imaging processes found to have a pelvic fracture on the right side as a source of her symptoms and disability Patient with longstanding dementia as well as being relatively frail, and known osteoporosis status post other fractures [facility] Medical History (Updated 10/26/22 @ 12:00 by Ari Goodwin MD) Abdominal pain Anxiety (09/16/13) Dementia Diverticulosis of large intestine Essential hypertension (02/24/11) History of adenomatous polyp of colon Hypertension Irritable bowel syndrome with diarrhea (09/13/16) Irritable bowel syndrome without diarrhea (05/28/15) Low back pain Lung nodule seen on imaging study (10/03/12) Mixed hyperlipidemia (02/24/11) Multiple fractures of rib involving four or more ribs Open wound of genital labia Osteoporosis (02/24/11) Seizure Surgical History (Updated 10/26/22 @ 11:48 by Ari Goodwin MD) H/O colonoscopy History of appendectomy History of foot surgery History of right hip replacement Hx of appendectomy Social History marital status: number of children: 1 household members: none lives independently: Yes caregiver/support person: Yes (Step daughter) housing: apartment pets and animals: No education level: high school occupational status: other 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 hortencia/pentecostalism: Spiritism leisure activities: music, reading and other Smoking Status: Never smoker Tobacco: How many years used: 0 alcohol intake: current substance use type: does not use Meds Home Medications and Allergies Home Medications Medication Instructions Recorded Confirmed Type acetaminophen 325 mg tablet 500 mg PO TID PRN Pain (Scale 06/09/20 10/03/22 History Score 1-3) aspirin 81 mg tablet,delayed 81 mg PO DAILY 03/15/22 10/03/22 History release docusate sodium 100 mg capsule 100 mg PO DAILY 03/15/22 10/03/22 History magnesium hydroxide 400 mg/5 mL 2,400 mg PO DAILY PRN takes this 03/15/22 10/03/22 History oral suspension (Milk of Magnesia) way at home vitamin no.115-iron 29 1 tab PO DAILY 03/15/22 10/03/22 History mg-folic acid 1 mg chewable tablet ( 19) levetiracetam 100 mg/mL oral 500 mg (5 mL) PO BID #473 mL 03/29/22 10/03/22 Rx solution quetiapine 25 mg tablet See Rx Instructions .Route 07/11/22 10/03/22 Rx .COMPLEX #360 tabs citalopram 10 mg tablet 10 mg PO DAILY #30 tabs 07/19/22 10/03/22 Rx clopidogrel 75 mg tablet 75 mg PO DAILY #90 tabs 07/27/22 10/03/22 Rx lidocaine HCl 2 % topical cream 1 applic topical BID #118 mL 08/12/22 10/03/22 Rx lisinopril 40 mg tablet 40 mg PO DAILY #90 tabs 09/02/22 10/03/22 Rx atorvastatin 20 mg tablet (Lipitor) 20 mg PO BEDTIME #90 tabs 09/12/22 10/03/22 Rx Vitamin B12 1 tab PO DAILY 10/03/22 History sulfamethoxazole 800 1 tab PO BID #20 tabs 10/03/22 10/03/22 Rx mg-trimethoprim 160 mg tablet lorazepam 1 mg tablet 1 mg PO TID PRN agitation #30 tabs 10/06/22 Rx Allergies Allergy/AdvReac Type Severity Reaction Status Date / Time lidocaine AdvReac Severe RASH, Verified 10/03/22 09:33 BURNED HER levofloxacin [From LEVAQUIN] AdvReac Unknown dizziness, Verified 10/03/22 09:33 not sure if related or not...08/30/16 Review of Systems Review of Systems ROS: Yes All systems reviewed with the patient and are negative except as otherwise documented Exam Vital Signs (past 8 hours): - 10/26/22 05:56 10/26/22 10:35 10/26/22 08:45 Temperature 97.7 F Pulse Rate 77 70 Respiratory Rate 18 20 70 H Blood Pressure 150/76 H 177/84 H 175/80 H Pulse Oximetry 98 98 98 Oxygen Delivery Method Room Air Room Air Oxygen Delivery Method Room Air Narrative Exam Narrative: Elderly female lying on a gurney in the emergency department who readily recognizes me does not appear to be any obvious distress although does kind of continue to push on her right hip/groin area HEENT unremarkable Lungs-clear Heart-regular rate and rhythm no murmur Abdomen-benign Assessment & Plan Assessment & Plan narrative: 1. Pelvic fracture-patient not a good candidate for surgery nor am I sure surgery is indicated even with the fracture into the acetabulum. Orthopedic surgery has been consulted. Best approach likely will be conservative management with pain control and skilled therapies. Obviously patient unable to return home and will likely require fdc placement for rehabilitation as well 2. Dementia-patient has not had issues with behavior. Continue patient's usual medications which does include lorazepam as she does have a significant element of anxiety which predates her cognitive decline. She is also on quetiapine which is been helpful for her anxiety and overall day-to-day functioning 3. Hypertension-continue patient's usual meds. Blood pressure bit high in the ER but patient also with significant pain and anxiety related to same 4. Irritable bowel syndrome-continue patient's usual regimen for her bowels etcetera 5. History of CVA and seizure-continue patient's usual meds which includes her antiepileptic as well as her lipid lowering therapy for risk reduction for both of these issues 6. Code status-patient previously requested no code do not resuscitate in the event of a sudden cardiac or respiratory arrest which is entirely appropriate and verified today 7. VTE prophylaxis-Lovenox entirely appropriate. She is on dual antiplatelet therapy as well given her history of a CVA but I think the low-dose prophylactic dose low molecular weight heparin is okay in addition to this and appropriate Overall patient requires inpatient hospitalization given her inability to walk her significant fracture and difficulty with pain management. She will likely be in the hospital greater than 48 hours that will span 2 separate midnights.
--- NOTE | 2022-10-26 12:51 | PC.NURSE ---
Addendum entered by Divya Villa R.N. 10/26/22 17:59: Ativan 1 mg administered to facilitate Castañeda catheter placement. Catheter placed without issue and clear urine immediately draining. Pt now resting calmly in room with eyes closed. Addendum entered by Divya Villa R.N. 10/26/22 17:24: Pt initially calm after seroquel and ativan but once again became very upset stating you are hurting me, get me out of here, you're keeping me prisoner and yelling out at bedside. Attempting to get out of bed but is unable to bear weight on right side at all due to pain. Refuses oxycodone. Unable to follow directions, not following conversations. Does not know where she is. Daughter to visit later this evening. Update provided to Dr. Major and one time dose of IV ativan order received and given. Pt moderately calmer but still anxious and attempting to get out of bed at intervals, sitter at bedside. Pt unable to void and has not voided since arrival - bladder scanned for over 600 ml. Results relayed to provider personnel interviewer (Dr. Briscoe) and order received for castañeda catheter placement. Addendum entered by Divya Villa R.N. 10/26/22 15:32: Increasing anxiety this afternoon, unable to reassure or distract. Attempting to get out of bed, does not remember that she fell and broke pelvis. Medicated with prn ativan, Tylenol for pain, and scheduled seroquel. Assisted into comfortable position in bed. Bed alarm on and staff at bedside for safety. Spoke with Dr. Nelson who ordered toe touch weight bearing to right side. Original Note: Admit Note Patient arrived to room at 1225 from ER by stretcher. Transferred to bed via slider board. Alert and oriented to self and sometimes place, unable to answer admission questions but does confirm that she lives with her daughter, Ewa. Changed in to gown, skin intact. Pain to right hip when changing position, denies pain at rest. CMS intact to BLEs. Clothing in belongings bag at bedside. Oriented to room and to call light/bed/tv controls. Bed alarm on. Call light within reach.
--- NOTE | 2022-10-26 13:02 | OT.IPNOTE ---
OT orders received and awaiting Ortho consult for further information regarding weight bearing status for the pt. Hold OT eval at this time.
[2022-10-26 13:11] LABS: COVID19 -Nasal RAPID Negative (Negative)
[2022-10-26 13:52] LABS: Add Manual Diff / Slide Review NO; Basophils Absolute Auto 100 /uL (0-100); Basophils Percent Auto 1.3 % (0-2); Eosinophils Absolute Auto 100 /uL (0-450); Eosinophils Percent Auto 1.1 % (2-4); Hematocrit 36.2 % (36-46); Lymphocytes Absolute Auto 900 /uL (1100-4500); Lymphocytes Percent Auto 13.4 % (25-40); Mean Corpuscular HGB Conc 33.1 % (30-36); Mean Corpuscular Hemoglobin 27.3 PG (26-34); Mean Corpuscular Volume 82.3 fL (80-100); Monocytes Absolute Auto 1300 /uL (0-900); Neutrophils Absolute Auto 4400 /uL (1500-7000); Neutrophils Percent Auto 65.2 % (50-75); Platelet Count 330 X10^3/uL (150-400); Red Cell Distribution Width 14.7 % (11.6-14.8); White Blood Cell Count 6.8 X10^3/uL (4.5-11.0)
[2022-10-26 13:56] LABS: INR 1.1 (0.9-1.3); Prothrombin Time 12.4 SECONDS (10.1-12.7)
[2022-10-26] MEDS: LORazepam 1 MG TABLET PO (14:02)
[2022-10-26 14:09] LABS: Alanine Aminotransferase 16 IU/L (<35); Albumin 3.7 g/dL (3.5-5.0); Albumin Globulin Ratio 1.1 (1.0-2.8); Alkaline Phosphatase 71 U/L (38-126); Aspartate Aminotransferase 22 IU/L (14-36); BUN Creatinine Ratio 15.7 (6-22); Bilirubin Total 0.5 mg/dL (0.2-1.3); Blood Urea Nitrogen 8 mg/dL (7-17); Calcium 8.8 mg/dL (8.4-10.2); Carbon Dioxide 26 mmol/L (22-32); Chloride 100 mmol/L (98-107); Estimated Glomerular Filt Rate > 60 mL/min (>60); Globulin 3.5 g/dL (1.7-4.1); Glucose 95 mg/dL (80-110); HEMOLYSIS < 15 (0-50); Potassium 4.1 mmol/L (3.4-5.1); Sodium 133 mmol/L (137-145); Total Protein 7.2 g/dL (6.3-8.2)
[2022-10-26] MEDS: QUETIAPINE 25 MG TABLET 50 MG PO (15:05)
[2022-10-26] MEDS: LORazepam 2 MG/ML INJ 1 MG IV ×2 (16:45→17:50)
--- NOTE | 2022-10-26 17:12 | PT-IP ANOTE ---
PT orders received and awaiting Ortho consult for further information regarding weight bearing status for the pt. Hold PT eval at this time until Ortho sees pt
--- NOTE | 2022-10-26 19:46 | P.HP_ITS ---
History of Present Illness History of Present Illness Date Patient Seen: 10/26/22 Time Patient Seen: 19:56 Date of Onset of Symptoms: 10/26/22 Chief complaint: r hip pain Narrative: This 87-year-old female with a history of a right hip fracture in the past which is treated with the intramedullary nail. She fell and noted right hip pain. She was admitted to internal medicine service with right hip pain. She does have a history of confusion and baseline dementia. She also has some issues of anxiety. [facility] Medical History (Updated 10/26/22 @ 19:58 by Sammi Nelson MD) Abdominal pain Anxiety (09/16/13) Dementia Diverticulosis of large intestine Essential hypertension (02/24/11) History of adenomatous polyp of colon Hypertension Intertrochanteric fracture of right femur Irritable bowel syndrome with diarrhea (09/13/16) Irritable bowel syndrome without diarrhea (05/28/15) Low back pain Lung nodule seen on imaging study (10/03/12) Mixed hyperlipidemia (02/24/11) Multiple fractures of rib involving four or more ribs Open wound of genital labia Osteoporosis (02/24/11) Seizure Surgical History (Updated 10/26/22 @ 11:48 by Ari Goodwin MD) H/O colonoscopy History of appendectomy History of foot surgery History of right hip replacement Hx of appendectomy Social History marital status: number of children: 1 household members: children lives independently: Yes caregiver/support person: Yes (Step daughter) housing: apartment pets and animals: No education level: high school occupational status: other 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 hortencia/orthodoxy: Christianity leisure activities: music, reading and other Smoking Status: Never smoker Tobacco: How many years used: 0 alcohol intake: current substance use type: does not use Meds Home Medications and Allergies Home Medications Medication Instructions Recorded Confirmed Type acetaminophen 325 mg tablet 500 mg PO TID PRN Pain (Scale 06/09/20 10/26/22 History Score 1-3) aspirin 81 mg tablet,delayed 81 mg PO DAILY 03/15/22 10/26/22 History release docusate sodium 100 mg capsule 100 mg PO DAILY 03/15/22 10/26/22 History magnesium hydroxide 400 mg/5 mL 2,400 mg PO DAILY PRN takes this 03/15/22 10/26/22 History oral suspension (Milk of Magnesia) way at home vitamin no.115-iron 29 1 tab PO DAILY 03/15/22 10/26/22 History mg-folic acid 1 mg chewable tablet ( 19) levetiracetam 100 mg/mL oral 500 mg (5 mL) PO BID #473 mL 03/29/22 10/26/22 Rx solution citalopram 10 mg tablet 10 mg PO DAILY #30 tabs 07/19/22 10/26/22 Rx clopidogrel 75 mg tablet 75 mg PO DAILY #90 tabs 07/27/22 10/26/22 Rx lisinopril 40 mg tablet 40 mg PO DAILY #90 tabs 09/02/22 10/26/22 Rx atorvastatin 20 mg tablet (Lipitor) 20 mg PO BEDTIME #90 tabs 09/12/22 10/26/22 Rx Vitamin B12 1 tab PO DAILY 10/03/22 10/26/22 History lorazepam 1 mg tablet 1 mg PO TID PRN agitation #30 tabs 10/06/22 10/26/22 Rx quetiapine 25 mg tablet 25 mg PO BID 10/26/22 10/26/22 History quetiapine 50 mg tablet 50 mg PO 1600 10/26/22 10/26/22 History Allergies Allergy/AdvReac Type Severity Reaction Status Date / Time lidocaine AdvReac Severe RASH, Verified 10/03/22 09:33 BURNED HER levofloxacin [From LEVAQUIN] AdvReac Unknown dizziness, Verified 10/03/22 09:33 not sure if related or not...08/30/16 Review of Systems Review of Systems Narrative: Patient is confused but resting quietly in bed. No known loss of consciousness Exam Vital Signs (past 8 hours): - 10/26/22 12:46 10/26/22 14:08 Temperature 98.5 F Pulse Rate 77 Respiratory Rate 18 Blood Pressure 128/87 Pulse Oximetry 97 Oxygen Delivery Method Room Air Oxygen Flow Rate 0 Oxygen Delivery Method Room Air Oxygen Flow Rate 0 Narrative Exam Narrative: Confused, Resting comfortably in bed, obvious pain with gentle range of motion in the right hip, well-healed scar, no crepitation with range of, abdomen soft and benign, adequate capillary refill distally, able to fire hip flexors and extensor Objective Labs 10/26/22 13:40 10/26/22 13:40 Labs: Laboratory Results - last 24 hr 10/26/22 10/26/22 10/26/22 12:06 13:40 13:40 WBC 6.8 RBC 4.40 Hgb 12.0 Hct 36.2 MCV 82.3 MCH 27.3 MCHC 33.1 RDW 14.7 Plt Count 330 Neut % (Auto) 65.2 Lymph % (Auto) 13.4 L [place] % (Auto) 19.0 H Eos % (Auto) 1.1 L Baso % (Auto) 1.3 Neut # (Auto) 4400 Lymph # (Auto) 900 L [place] # (Auto) 1300 H Eos # (Auto) 100 Baso # (Auto) 100 PT 12.4 INR 1.1 Sodium Potassium Chloride Carbon Dioxide BUN Creatinine Estimated GFR BUN/Creatinine Ratio Glucose Calcium Total Bilirubin AST ALT Alkaline Phosphatase Total Protein Albumin Globulin Albumin/Globulin Ratio SARS-CoV-2 (PCR) Negative 10/26/22 13:40 WBC RBC Hgb Hct MCV MCH MCHC RDW Plt Count Neut % (Auto) Lymph % (Auto) [place] % (Auto) Eos % (Auto) Baso % (Auto) Neut # (Auto) Lymph # (Auto) [place] # (Auto) Eos # (Auto) Baso # (Auto) PT INR Sodium 133 L Potassium 4.1 Chloride 100 Carbon Dioxide 26 BUN 8 Creatinine 0.51 L Estimated GFR > 60 BUN/Creatinine Ratio 15.7 Glucose 95 Calcium 8.8 Total Bilirubin 0.5 AST 22 ALT 16 Alkaline Phosphatase 71 Total Protein 7.2 Albumin 3.7 Globulin 3.5 Albumin/Globulin Ratio 1.1 SARS-CoV-2 (PCR) CT scan pelvis shows retained internal fixation right hip with a healed i ntertrochanteric hip fracture, superior pubic rami fracture with a crack in the right acetabulum Assessment & Plan Assessment and plan (1) Closed pelvic fracture: Status: Acute (2) History of stroke: Status: Acute (3) Fall: Qualifiers: Encounter type: initial encounter Qualified Code(s): W19.XXXA - Unspecified fall, initial encounter Status: Acute (4) Dementia: Status: Chronic Assessment & Plan narrative: Right superior pelvic rami fracture and a right acetabular fracture with a prior history of intertrochanteric hip fracture treated with intramedullary nailing and screws. Fractures are not displaced. The can be managed conservatively. I would allow her to be partial weight-bearing on the right lower extremity. Unfortunately she has issues with confusion which will make rehab challenging. Her fracture will likely take 4-6 weeks to heal. It likely can be managed conservatively. Quality VTE Deep Vein Thrombosis/Pulmonary Embolism Present on Admission: No
[2022-10-27] MEDS: LORazepam 2 MG/ML INJ 1 MG IV ×2 (03:39→16:57)
[2022-10-27] MEDS: OXYCODONE IR 5 MG TABLET PO ×4 (03:41→21:38)
--- NOTE | 2022-10-27 06:48 | PM.PN.1 ---
Subjective Subjective Date Patient Seen: 10/27/22 Time Patient Seen: 06:48 Interval history: Patient with some agitation overnight. Required some IV lorazepam. She is tearful and somewhat anxious this morning but easily redirects. Had Thompson catheter placed as well, which makes great sense Seen by Orthopedic surgery feels like she can be up with physical therapy and partial weight-bearing Exam Vital Signs (past 8 hours): Oxygen Delivery Method Room Air Oxygen Flow Rate 0 Objective Labs 10/26/22 13:40 10/26/22 13:40 Labs: Laboratory Results - last 24 hr 10/26/22 10/26/22 10/26/22 12:06 13:40 13:40 WBC 6.8 RBC 4.40 Hgb 12.0 Hct 36.2 MCV 82.3 MCH 27.3 MCHC 33.1 RDW 14.7 Plt Count 330 Neut % (Auto) 65.2 Lymph % (Auto) 13.4 L [place] % (Auto) 19.0 H Eos % (Auto) 1.1 L Baso % (Auto) 1.3 Neut # (Auto) 4400 Lymph # (Auto) 900 L [place] # (Auto) 1300 H Eos # (Auto) 100 Baso # (Auto) 100 PT 12.4 INR 1.1 Sodium Potassium Chloride Carbon Dioxide BUN Creatinine Estimated GFR BUN/Creatinine Ratio Glucose Calcium Total Bilirubin AST ALT Alkaline Phosphatase Total Protein Albumin Globulin Albumin/Globulin Ratio SARS-CoV-2 (PCR) Negative 10/26/22 13:40 WBC RBC Hgb Hct MCV MCH MCHC RDW Plt Count Neut % (Auto) Lymph % (Auto) [place] % (Auto) Eos % (Auto) Baso % (Auto) Neut # (Auto) Lymph # (Auto) [place] # (Auto) Eos # (Auto) Baso # (Auto) PT INR Sodium 133 L Potassium 4.1 Chloride 100 Carbon Dioxide 26 BUN 8 Creatinine 0.51 L Estimated GFR > 60 BUN/Creatinine Ratio 15.7 Glucose 95 Calcium 8.8 Total Bilirubin 0.5 AST 22 ALT 16 Alkaline Phosphatase 71 Total Protein 7.2 Albumin 3.7 Globulin 3.5 Albumin/Globulin Ratio 1.1 SARS-CoV-2 (PCR) [facility] Medical History (Updated 10/26/22 @ 19:58 by Sammi Nelson MD) Abdominal pain Anxiety (09/16/13) Dementia Diverticulosis of large intestine Essential hypertension (02/24/11) History of adenomatous polyp of colon Hypertension Intertrochanteric fracture of right femur Irritable bowel syndrome with diarrhea (09/13/16) Irritable bowel syndrome without diarrhea (05/28/15) Low back pain Lung nodule seen on imaging study (10/03/12) Mixed hyperlipidemia (02/24/11) Multiple fractures of rib involving four or more ribs Open wound of genital labia Osteoporosis (02/24/11) Seizure Surgical History (Updated 10/26/22 @ 11:48 by Ari Goodwin MD) H/O colonoscopy History of appendectomy History of foot surgery History of right hip replacement Hx of appendectomy Social History marital status: number of children: 1 household members: children lives independently: Yes caregiver/support person: Yes (Step daughter) housing: apartment pets and animals: No education level: high school occupational status: other 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 hortencia/amish: Pentecostal leisure activities: music, reading and other Smoking Status: Never smoker Tobacco: How many years used: 0 alcohol intake: current substance use type: does not use Assessment & Plan Assessment & Plan narrative: 1. Pelvic fracture-continue with conservative management with pain management and skilled therapies etcetera as per Orthopedic surgery 2. Dementia with mild behavioral issues-continue usual medications including her quetiapine as well as lorazepam as needed. Hopefully as she heals this will help to some degree. 3. GI-patient with significant constipation and symptoms consistent with irritable bowel syndrome. Continue patient's usual GI meds 4. Hypertension-patient's blood pressure adequately controlled at this time. Continue current medications 5. Disposition-patient clearly will need [facility] placement. Care management team is involved. Quality VTE Deep Vein Thrombosis/Pulmonary Embolism Present on Admission: No
[2022-10-27 07:00] VITALS: BP 120/64; PULSE 104; RESP 19; TEMP 38.2; O2SAT 95
[2022-10-27] MEDS: QUETIAPINE 25 MG TABLET PO (08:09)
[2022-10-27] MEDS: levETIRAcetam 250 MG TABLET 500 MG PO ×2 (08:09→21:38)
[2022-10-27] MEDS: ENOXAPARIN 40 MG/0.4 ML SYRINGE SUBCUT (08:09)
[2022-10-27] MEDS: CYANOCOBALAMIN (VITAMIN B-12) 500 MCG TABLET PO (08:10)
[2022-10-27] MEDS: ASPIRIN EC 81 MG TABLET PO (08:10)
[2022-10-27] MEDS: CLOPIDOGREL 75 MG TABLET PO (08:10)
[2022-10-27] MEDS: DOCUSATE 100 MG CAPSULE PO (08:10)
[2022-10-27] MEDS: CITALOPRAM 10 MG TABLET PO (08:10)
[2022-10-27] MEDS: LORazepam 1 MG TABLET PO ×2 (08:10→21:38)
[2022-10-27 08:11] VITALS: BP 120/64; PULSE 96
[2022-10-27] MEDS: PRENATAL VIT,CALC/IRON/FOLIC 1 TABLET 1 TAB PO (08:11)
[2022-10-27] MEDS: lisinopriL 20 MG TABLET 40 MG PO (08:11)
--- NOTE | 2022-10-27 11:13 | DIET.CONS ---
Dietary Consultation Note Admission Date: 10/26/2022 11:37 Assessment: Attempted to see pt this morning. Has experienced agitation and anxiety over the last 24 hours, and she is now asleep. Will try again this afternoon. Ht: 154.94 cm Wt: 43.5 kg BMI: 18.1 Last BM: 10/26/22 (10/26/22 13:49) MNA: 8 Manuel Score: 16 Electronically Signed by: Merry Marte 10/27/22 11:13 Clinical Dietitian [address] [id number]
--- NOTE | 2022-10-27 13:06 | OT.IPNOTE ---
Per NSG, patient is not appropriate for OT evaluation today d/t receipt of Ativan in a.m. Recommend re-attempting evaluation tomorrow.
--- NOTE | 2022-10-27 15:23 | PT.IIE ---
Current Diagnoses Unspecified dementia, unspecified severity, without behavioral disturbance, psychotic disturbance, mood disturbance, and anxiety (10/26/22) Fracture of unspecified parts of lumbosacral spine and pelvis, initial encounter for closed fracture (10/26/22) Unspecified fall, initial encounter (10/26/22) Personal history of transient ischemic attack (TIA), and cerebral infarction without residual deficits (10/26/22) Surgical History (Last Updated 10/26/22 @ 11:48 by Ari Goodwin MD) H/O colonoscopy History of appendectomy History of foot surgery History of right hip replacement Hx of appendectomy Medical History (Last Updated 10/26/22 @ 19:58 by Sammi Nelson MD) Abdominal pain Anxiety (09/16/13) Dementia Diverticulosis of large intestine Essential hypertension (02/24/11) History of adenomatous polyp of colon Hypertension Intertrochanteric fracture of right femur Irritable bowel syndrome with diarrhea (09/13/16) Irritable bowel syndrome without diarrhea (05/28/15) Low back pain Lung nodule seen on imaging study (10/03/12) Mixed hyperlipidemia (02/24/11) Multiple fractures of rib involving four or more ribs Open wound of genital labia Osteoporosis (02/24/11) Seizure Physical Therapy Inpatient Evaluation/Re-Eval M1 PT/OT-IP Prior Functional Status Start: 10/27/22 15:05 Freq: Status: Active Protocol: Document 10/27/22 15:05 BC (Rec: 10/27/22 15:23 [id number]) Medical Review Prior Functional Status Medical History Reviewed Yes Social History Household Members children Living Arrangements House Number of Stairs To Enter/Railing? unknown Additional Social History Comment PLOF/home set up is unknown due to Pt's cognitive status. No family present at time of PT eval. From chart review: Pt lives with dtr and ambulaties with a walker. M2 PT-IP Current Condition Start: 10/27/22 15:05 Freq: Status: Active Protocol: Document 10/27/22 15:05 BC (Rec: 10/27/22 15:23 [id number]) Physical Therapy Current Condition Current Condition Evaluation Date 10/27/22 Treatment Diagnosis pelvic and acetabular fx; difficulty with ambulation; falls Onset Date 10/26/22 M3 PT-IP Subjective Start: 10/27/22 15:05 Freq: Status: Active Protocol: Document 10/27/22 15:05 BC (Rec: 10/27/22 15:23 [id number]) Subjective Physical Therapy Visit Type Type Initial Evaluation Visit Start Time 13:20 Visit Stop Time 13:50 Total Visit Minutes 28 Physical Therapy Visit Comments Patient Comments Pt asking to get up. Get to a hospital. Patient Goals None stated Therapy Pain Assessment Pain Present Pain Present Pain Reported FLACC Pain Scale Face Occasional grimace/frown Legs Uneasy, restless, tense Activity Squirming,shifting Cry No cry (awake or asleep) Consolability Reassurable with touch FLACC Total 4 M4 PT-IP Mobility and Gait Start: 10/27/22 15:05 Freq: Status: Active Protocol: Document 10/27/22 15:05 (Rec: 10/27/22 15: [id number]) PT-Bed Mobility Assessment Supine to Sit Supine to Sit Moderate Assistance Sit to Supine Sit to Supine Maximum Assistance Scooting Scooting to Edge of Bed Minimal Assistance Scooting Up and Down in Bed Minimal Assistance PT-Transfer Assessment Sit to and From Stand Sit to and from Stand Maximum Assistance,1 Person Assistance Equipment Transfer Assistive Device Gait Belt,Front Wheeled Walker Comments Mobility Comments Unable to transfer fully to standing. She was following single step commands for TTWB on RLE, using PT assist to maintain reduced WB on RLE. Pt does state someone told me that I can't put weight on my leg. Gait Assessment Comments Gait Comments Unable at this time Stair Climbing Assessment Comments Stair Climbing Comments Unable at this time PT-Balance Assessment Sitting Balance and Reactions Static Sitting Balance Ability Good Dynamic Sitting Balance Ability Fair Standing Balance and Reactions Static Standing Balance Ability Poor Device Used fWW Comments Other Balance Tests/Deviations/Treatment Seated posture is slightly : unsteady when using BUE to eat lunch vs supporting trunk. Needing CGA for safety. Unable to stand to assess standing balance. M5 PT-IP Objective Assessments Start: 10/27/22 15:05 Freq: Status: Active Protocol: Document 10/27/22 15:05 BC (Rec: 10/27/22 15:23 [id number]) Orientation Orientation/Cognition Level of Alertness Confusional State Orientation Name Safety Awareness Decreased Safety Awareness Comments Pt needed frequent re- orientation to place and situation. She is following single step commands throughout PT eval today and is cooperative. She is making her needs known to therapist. Gross Range of Motion Lower Extremity ROM Assessment Right Impaired Impairments R hip flexion ~60 deg, abd ~10 deg Strength Upper Extremity Strength Assessment Within Functional Limits Lower Extremity Strength Assessment Right Impaired Hip 3 Knee 4 Ankle 4 Comments Strength Comments Demonstrates good BUE strength with scooting to edge of bed seated and bridging/scooting up in flat bed using just UEs and LLE in hooklying. Sensation Assessment Sensation Gross Sensation WNL M6 PT-IP Treatment Start: 10/27/22 15:05 Freq: Status: Active Protocol: Document 10/27/22 15:05 BC (Rec: 10/27/22 15:23 [id number]) Physical Therapy Treatment Education Education Provided Precautions,Weight Bearing Status,Safety Other Treatments Other Treatment Performed Education will need to be consistent and repetitive due to cognitive status. She did say someone told me that when we talked about WB status on her RLE. She needs frequent reminders as to why her RLE is painful and TTWB. M7 PT-IP Assessment and Plan Start: 10/27/22 15:05 Freq: Status: Active Protocol: Document 10/27/22 15:05 (Rec: 10/27/22 15:23 [id number]) PT Summary Assessment and Plan Potential Rehabilitation Potential Fair Status of Condition at Evaluation Stable Summary Impairments Pain,Strength,Balance, Cognition,Bed Mobility, Transfers,Gait,Activity Tolerance Progress Towards Goals Progressing Toward Goals Assessment Summary Pt admitted following a fall at home resulting in R superior pelvic rami fx and R acetabular fx in setting of prior R hip ORIF. She is to be TTWB on RLE per Dr Nelson. She is not able to provide her history/PLOF. She was cooperative and eager to work with PT stating I want to sit up on the edge to eat. Pt requiring mod assist for bed mobility. She was needing intermittent CGA while eating some of her lunch seated, especially when using BUE to manage food/utensils. She was agreeable to attempt standing. Attempted 1x with Pt maintaining TTWB on RLE but she was unable to obtain fully upright stance. Assisted back to sitting EOB and Pt requesting to lie back down due to fatigue. Required max assist to return to supine. She assisted greatly with scooting up in bed using BUE and LLE for bridging. Once comfortable in bed she fell back asleep. Bed alarm on and call light in reach. Pt will likely need 24/ assist at discharge, this may be appropriate in SNF setting based on Pt's ability to effectively participate today in therapy. Goals Bed Mobility Goal Standby Assistance Transfer Goal Contact Guard Assistance Gait Goal Minimal Assistance Gait Distance 10-20' Days to Meet Goals 5 Frequency of Treatment Frequency Of Treatment Once a Day Treatment Plan Physical Therapy Treatment Plan Bed Mobility Training,Transfer Training,Gait Training, Therapeutic Exercise,Balance Retraining,Discharge Planning, Neuromuscular Re-ed Weight Bearing Status Weight Bearing Status Touch Down Weight Bearing Allowed Weight Bearing Amount (enter % RLE or #) (%) Recommendations To Nursing Amount of Assist Needed PT/OT Assist Only Discharge Recommendations PT Discharge Recommendations SNF Rehab Other Discharge Recommendations 24/7 skilled caregiver assistance; anticipate SNF based on ability to cooperate today. Transportation Needs at Discharge Wheelchair/Cabulance
[2022-10-27] MEDS: QUETIAPINE 25 MG TABLET 50 MG PO (16:23)
[2022-10-27] MEDS: DEXAMETHASONE EAR-BOTH (16:27)
[2022-10-27] MEDS: TOBRAMYCIN EAR-BOTH (16:27)
[2022-10-27 19:00] VITALS: O2SAT 98
[2022-10-27 20:00] VITALS: BP 139/67; PULSE 92; RESP 15; TEMP 36.7; O2SAT 96
[2022-10-27] MEDS: ATORVASTATIN 20 MG TABLET PO (21:38)
[2022-10-28] MEDS: LORazepam 2 MG/ML INJ 1 MG IV (05:16)
[2022-10-28] MEDS: OXYCODONE IR 5 MG TABLET PO ×3 (05:23→20:48)
--- NOTE | 2022-10-28 06:24 | PC.NURSE ---
NightShift Pt woke up at 505 very anxious, not able to redirect, Pt repeatedly stated am scared, please help me, I need to pee, Please help me pee. Pt was fixated on fear and the need to void. RN administered 1mg Ativan IV per MAR and 5mg Oxy crushed with apple sauce. IRMA Flanagan stayed bedside until Pt was able to fall asleep. Pt O2 states decreased to high 80's, 2 liters NC applied and 02 immediately returned to high 90's.
--- NOTE | 2022-10-28 06:43 | P.PN_ITS ---
Subjective Subjective Date Patient Seen: 10/28/22 Time Patient Seen: 06:43 Interval history: Patient was up with physical therapy yesterday. Was able to participate with therapy. Still seems like jail placement is going to be the only viable option Still requiring intermittent doses of lorazepam which is a longstanding medication for her Also still receiving her quetiapine Blood pressure has been well controlled Exam Vital Signs (past 8 hours): Oxygen Delivery Method Room Air Oxygen Flow Rate 0 Objective Labs 10/26/22 13:40 10/26/22 13:40 [facility] Medical History (Updated 10/26/22 @ 19:58 by Sammi Nelson MD) Abdominal pain Anxiety (09/16/13) Dementia Diverticulosis of large intestine Essential hypertension (02/24/11) History of adenomatous polyp of colon Hypertension Intertrochanteric fracture of right femur Irritable bowel syndrome with diarrhea (09/13/16) Irritable bowel syndrome without diarrhea (05/28/15) Low back pain Lung nodule seen on imaging study (10/03/12) Mixed hyperlipidemia (02/24/11) Multiple fractures of rib involving four or more ribs Open wound of genital labia Osteoporosis (02/24/11) Seizure Surgical History (Updated 10/26/22 @ 11:48 by Ari Goodwin MD) H/O colonoscopy History of appendectomy History of foot surgery History of right hip replacement Hx of appendectomy Social History marital status: number of children: 1 household members: children lives independently: Yes caregiver/support person: Yes (Step daughter) housing: apartment pets and animals: No education level: high school occupational status: other 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 hortencia/mosque: Latter-Day leisure activities: music, reading and other Smoking Status: Never smoker Tobacco: How many years used: 0 alcohol intake: current substance use type: does not use Assessment & Plan Assessment & Plan narrative: 1. Pelvic fracture-continue with conservative management with pain management and skilled therapies etcetera. Will need placement in jail 2. Dementia with mild behavioral issues-continue usual medications including her quetiapine as well as lorazepam as needed. Hopefully as she heals this will help to some degree. Thus far her symptoms are I think pretty much at baseline for her. Probably a bit traumatized by the change in environment in the hospital etcetera. 3. GI-patient with significant constipation and symptoms consistent with irrita ble bowel syndrome. Continue patient's usual GI meds 4. Hypertension-patient's blood pressure adequately controlled at this time. Continue current medications 5. Disposition-patient clearly will need jail placement. Care management team is involved. Probably ready for discharge sometime in the next 24-48 hours 6. Severe protein calorie malnutrition-Severe chronic protein calorie malnutrition r/t predicted inadequate PO aeb poor PO since admission, severely low for age BMI of 18.1 and significant muscle/fat wasting of temples, shoulders, and clavicle. -The patient is at much higher risk for medical and surgical complications because of her malnutrition.? This increases the difficulty and complexity of medical and surgical interventions and increases the chances of poor outcomes such as morbidity and mortality. Will continue to have patient seen by dietary/vice president [employer] Quality VTE Deep Vein Thrombosis/Pulmonary Embolism Present on Admission: No
[2022-10-28 07:00] VITALS: PULSE 95; O2SAT 99
[2022-10-28 08:08] VITALS: BP 111/62; PULSE 95
[2022-10-28] MEDS: lisinopriL 20 MG TABLET 40 MG PO (08:08)
[2022-10-28] MEDS: LORazepam 1 MG TABLET PO ×2 (08:08→16:33)
[2022-10-28 08:10] VITALS: BP 111/62; PULSE 95; O2SAT 99
[2022-10-28] MEDS: PRENATAL VIT,CALC/IRON/FOLIC 1 TABLET 1 TAB PO (08:10)
[2022-10-28] MEDS: ASPIRIN EC 81 MG TABLET PO (08:10)
[2022-10-28] MEDS: CLOPIDOGREL 75 MG TABLET PO (08:10)
[2022-10-28] MEDS: levETIRAcetam 250 MG TABLET 500 MG PO ×2 (08:10→20:49)
[2022-10-28] MEDS: CYANOCOBALAMIN (VITAMIN B-12) 500 MCG TABLET PO (08:10)
[2022-10-28] MEDS: DOCUSATE 100 MG CAPSULE PO (08:10)
[2022-10-28] MEDS: CITALOPRAM 10 MG TABLET PO (08:10)
[2022-10-28] MEDS: QUETIAPINE 25 MG TABLET PO (08:10)
[2022-10-28] MEDS: ACETAMINOPHEN 325 MG TABLET 650 MG PO (10:23)
--- NOTE | 2022-10-28 10:26 | DIET.CONS ---
Dietary Consultation Note Admission Date: 10/26/2022 11:37 Assessment: 87F with dementia admitted with right hip pain and found to have closed pelvic fx. RD consulted for low MNA of 8. Poor PO of 0-25% since admission. BMI severely low for age at 18.1. H/o constipation. Weight over the last year fluctuates between 42-44kg with no significant change. Nutrition focused physical exam indicates notable muscle/fat wasting: hollowing, depressed temples, square shoulders with prominent bone presentation, and protruding clavicle. Ht: 154.94 cm Wt: 43.5 kg BMI: 18.1 Last BM: 10/26/22 (10/26/22 13:49) MNA: 8 Manuel Score: 16 Diet: 10/26/22 Lunch Heart Healthy Diet Diet Modifications: Nutrition Percent Meal Consumed 0% 10/27/22 18:00 Percent Meal Consumed 10 10/27/22 12:30 Percent Meal Consumed 25% 10/27/22 09:00 Labs: RBC 4.40 X10^6/uL (4.0-5.2) 10/26/22 13:40 Hgb 12.0 g/dL (12.0-16.0) 10/26/22 13:40 Hct 36.2 % (36-46) 10/26/22 13:40 Creatinine 0.51 mg/dL (0.52-1.04) L 10/26/22 13:40 Nutrition Diagnosis: Severe chronic protein calorie malnutrition r/t predicted inadequate PO aeb poor PO since admission, severely low for age BMI of 18.1 and significant muscle/fat wasting of temples, shoulders, and clavicle. -The patient is at much higher risk for medical and surgical complications because of his malnutrition.? This increases the difficulty and complexity of medical and surgical interventions and increases the chances of poor outcomes such as morbidity and mortality. Interventions: High kcal ONS BID to support kcal and protein needs. EER: [id number] kcal (35-38 kcal/kg per BMI) 85-90g PRO (1.9-2g/kg PRO per malnutrition) Monitoring/Evaluations: RD follow-up 3-4 days to monitor PO, weight, ONS tolerance Electronically Signed by: Merry Marte 10/28/22 10:26 Clinical Dietitian [address] [address]
--- NOTE | 2022-10-28 11:06 | CM.DANOTE ---
Initial DCP Assessment Note Pt is an 87yo female, resident of [place]. Admitted after fall and subsequent pelvic fx which is non-operable. Toe touch weight bearing recommended. Patient with longstanding dementia as well as being relatively frail, and known osteoporosis status post other fractures PCP Dr Gomez Payer: [facility] Following closely yesterday and today; it appears patient has had a few challenging evenings with some disorientation and agitation related to her dementia. Requested that RN Chris discuss Seroquel dosing/times w/Dr Gomez Met w/patient briefly this morning, patient sleepy. Patient not A+O Placed call to patient's brother Aleksandar; patient has been living w/step daughter Ewa and they have hired two private caregivers to assist. Aleksandar is hopeful that patient can discharge to a SNF during recovery from her pelvic fracture and gives the following preferences: 1. [facility] (patient there in the fall ) 2. [facility] [place] 3. [facility] Aleksandar understands the potential barrier to SNF acceptance is patient's dementia but hopeful patient can spend some time at SNF before returning home w/family and caregivers. Patient has spent time at memory care units in the past for respite, patient and family have funding for facility private payment vs increase in care at home as needed Discussed this referral with Mandie at [facility] which is now being reviewed. Will fax to back up SNF options as well CM team following closely for coordination of DCP. PASRR needed if patient discharges to SNF KRYS Garvey Discharge Planning/Care Management CM Discharge Assessment Start: 10/27/22 15:46 Freq: Status: Active Protocol: Document 10/28/22 11:02 JIN (Rec: 10/28/22 11:06 JIN [id number]) Discharge Planning Assessment Assigned Security Risk Analyst KRYS Romero DPOA/Assigned Designee Name brother Arredondo Contact Information [phone] Advance Directives? Yes: POA Advance Directives on File Family will bring a copy History Provided By Family Member,Medical Record Prior Living Arrangements House Household Members children Comment Patient lives with step daughter Ewa Type of transporation used prior to Relies on Others admit Independent with ADL's Yes: Indp limited by memory defecit, ambulates w/walker Is patient alert and oriented? No: Dementia Needs Assistance With Bathing,Grooming,Meal Prep, Toileting,Managing Medications ,Home Chores / Shopping Patient/Family Preference Senior Living Facility Comment [facility]. [facility]. [facility] 3. [facility] Barriers to Discharge Yes Comment 87 yo demented woman w/pelvic fracture, lives home w/family and 2 cgs that help Discharge Plan Senior Living Facility Transportation Arrangement SNF Referrals Initiated Senior Living If patient plan is SNF: Has PASSR been No completed?
--- NOTE | 2022-10-28 11:35 | PT.IPTN ---
Current Diagnoses Unspecified dementia, unspecified severity, without behavioral disturbance, psychotic disturbance, mood disturbance, and anxiety (10/26/22) Fracture of unspecified parts of lumbosacral spine and pelvis, initial encounter for closed fracture (10/26/22) Unspecified fall, initial encounter (10/26/22) Personal history of transient ischemic attack (TIA), and cerebral infarction without residual deficits (10/26/22) Physical Therapy Treatment Note M2 PT-IP Current Condition Start: 10/27/22 15:05 Freq: Status: Active Protocol: Document 10/27/22 15:05 BC (Rec: 10/27/22 15:23 BC [id number]) Physical Therapy Current Condition Current Condition Evaluation Date 10/27/22 Treatment Diagnosis pelvic and acetabular fx; difficulty with ambulation; falls Onset Date 10/26/22 M3 PT-IP Subjective Start: 10/27/22 15:05 Freq: Status: Active Protocol: Document 10/28/22 12:01 TS (Rec: 10/28/22 12:15 TS [id number]) Subjective Physical Therapy Visit Type Type Treatment Note Visit Start Time 11:35 Visit Stop Time 11:59 Total Visit Minutes 24 Notes Brother in room. Physical Therapy Visit Comments Patient Comments Pt reports throughout treatment wanting to go home. Patient Goals None stated M4 PT-IP Mobility and Gait Start: 10/27/22 15:05 Freq: Status: Active Protocol: Document 10/28/22 12:01 TS (Rec: 10/28/22 12:15 TS [id number]) PT-Bed Mobility Assessment Supine to Sit Supine to Sit Minimal Assistance Sit to Supine Sit to Supine Maximum Assistance Scooting Scooting to Edge of Bed Contact Guard Assistance Scooting Up and Down in Bed Contact Guard Assistance PT-Transfer Assessment Comments Mobility Comments Pt found resting in bed, brother in room, reports pt possibly might be going to [facility]. Supine to sit Sandra for LE's off EOB, cues for handrail asssit. Pt sat EOB with BUE support for gowna nd bed sheet change. Pt is unable to stand this time due to not being able to follow TTWB status. Sit to supine ModAx2 for LE's and trunk into bed, ModA x2 scooting to HOB. Pt was left in room with brother and call light nearby. Gait Assessment Comments Gait Comments Unable at this time Stair Climbing Assessment Comments Stair Climbing Comments Unable at this time PT-Balance Assessment Sitting Balance and Reactions Static Sitting Balance Ability Good Dynamic Sitting Balance Ability Fair Standing Balance and Reactions Static Standing Balance Ability Poor Device Used fWW Comments Other Balance Tests/Deviations/Treatment Pt sat EOB SBA with BUE : support on bed for robe change and bed sheet change. M5 PT-IP Objective Assessments Start: 10/27/22 15:05 Freq: Status: Active Protocol: Document 10/27/22 15:05 BC (Rec: 10/27/22 15:23 BC [id number]) Orientation Orientation/Cognition Level of Alertness Confusional State Orientation Name Safety Awareness Decreased Safety Awareness Comments Pt needed frequent re- orientation to place and situation. She is following single step commands throughout PT eval today and is cooperative. She is making her needs known to therapist. Gross Range of Motion Lower Extremity ROM Assessment Right Impaired Impairments R hip flexion ~60 deg, abd ~10 deg Strength Upper Extremity Strength Assessment Within Functional Limits Lower Extremity Strength Assessment Right Impaired Hip 3 Knee 4 Ankle 4 Comments Strength Comments Demonstrates good BUE strength with scooting to edge of bed seated and bridging/scooting up in flat bed using just UEs and LLE in hooklying. Sensation Assessment Sensation Gross Sensation WNL M6 PT-IP Treatment Start: 10/27/22 15:05 Freq: Status: Active Protocol: Document 10/28/22 12:01 TS (Rec: 10/28/22 12:15 TS [id number]) Physical Therapy Treatment Education Education Provided Precautions,Weight Bearing Status,Safety M7 PT-IP Assessment and Plan Start: 10/27/22 15:05 Freq: Status: Active Protocol: Document 10/28/22 12:01 TS (Rec: 10/28/22 12:15 TS [id number]) PT Summary Assessment and Plan Potential Rehabilitation Potential Fair Status of Condition at Evaluation Stable Summary Impairments Pain,Strength,Balance, Cognition,Bed Mobility, Transfers,Gait,Activity Tolerance Progress Towards Goals Progressing Toward Goals Assessment Summary Pt continues to be confused and she repeatedly states she wants to go home. She can follow single step instructions ~50% of the time. She performed supine to sit Sandra, sit to supine MaxA x2 and scooting to HOB MaxA x2. She sat EOB SBA with BUE support for robe and bed sheet change. She is unable to stand at this time with TTWB precautions due to cognitive status. PT is recommending SNF vs Home with 24/7 at this time to improve transfers and gait. Goals Bed Mobility Goal Standby Assistance Transfer Goal Contact Guard Assistance Gait Goal Minimal Assistance Gait Distance 10-20' Days to Meet Goals 5 Frequency of Treatment Frequency Of Treatment Once a Day Treatment Plan Physical Therapy Treatment Plan Bed Mobility Training,Transfer Training,Gait Training, Therapeutic Exercise,Balance Retraining,Discharge Planning, Neuromuscular Re-ed Weight Bearing Status Weight Bearing Status Touch Down Weight Bearing Allowed Weight Bearing Amount (enter % RLE or #) (%) Recommendations To Nursing Amount of Assist Needed PT/OT Assist Only Discharge Recommendations PT Discharge Recommendations Home with 13/02 Assist Available,SNF Rehab Other Discharge Recommendations 24/ skilled caregiver assistance; anticipate SNF based on ability to cooperate today. Transportation Needs at Discharge Wheelchair/Cabulance
--- NOTE | 2022-10-28 13:54 | OT.IP.EVAL ---
Current Diagnoses Unspecified dementia, unspecified severity, without behavioral disturbance, psychotic disturbance, mood disturbance, and anxiety (10/26/22) Fracture of unspecified parts of lumbosacral spine and pelvis, initial encounter for closed fracture (10/26/22) Unspecified fall, initial encounter (10/26/22) Personal history of transient ischemic attack (TIA), and cerebral infarction without residual deficits (10/26/22) Past Medical History (Last Updated 10/26/22 @ 19:58 by Sammi Nelson MD) Abdominal pain Anxiety (09/16/13) Dementia Diverticulosis of large intestine Essential hypertension (02/24/11) History of adenomatous polyp of colon Hypertension Intertrochanteric fracture of right femur Irritable bowel syndrome with diarrhea (09/13/16) Irritable bowel syndrome without diarrhea (05/28/15) Low back pain Lung nodule seen on imaging study (10/03/12) Mixed hyperlipidemia (02/24/11) Multiple fractures of rib involving four or more ribs Open wound of genital labia Osteoporosis (02/24/11) Seizure Surgical History (Last Updated 10/26/22 @ 11:48 by Ari Goodwin MD) H/O colonoscopy History of appendectomy History of foot surgery History of right hip replacement Hx of appendectomy Occupational Therapy Inpatient Evaluation/Re-Eval M1 PT/OT-IP Prior Functional Status Start: 10/28/22 17:48 Freq: NEEDED Status: Active Protocol: Document 10/28/22 13:54 [facility] (Rec: 10/28/22 18:07 [facility] [id number]) Medical Review Prior Functional Status Medical History Reviewed Yes Prior Functional Level (Other details) Pt is a poor historian unsure of prior level of care. Social History Household Members children Living Arrangements House Additional Social History Comment PLOF not known as family not present and pt unable to state . M2 OT-IP Current Condition Start: 10/28/22 17:48 Freq: Status: Active Protocol: Document 10/28/22 13:54 [facility] (Rec: 10/28/22 18:07 [facility] [id number]) Occupational Therapy Current Condition Current Condition Evaluation Date 10/28/22 Treatment Diagnosis Right pelvic and acetabular fx Diagnosis Onset Date 10/26/22 Weight Bearing Status Weight Bearing Status Partial Weight Bearing Allowed Weight Bearing Amount (enter % RLE PWB or #) (%) M3 OT- IP Subjective and Pain Start: 10/28/22 17:48 Freq: Status: Active Protocol: Document 10/28/22 13:54 [facility] (Rec: 10/28/22 18:07 [facility] [id number]) OT- Subjective Occupational Therapy Visit Type Type Initial Evaluation Visit Start Time 13:54 Visit Stop Time 14:14 Total Visit Minutes 20 Occupational Therapy Visit Comments Patient Comments Pt agreed to get up. Patient/Caregiver Goals Pt not able to state. OT Pain Assessment Pain When Pain Assessed During Mobility Pain Present Pain Present Pain Reported Location Right hip Pain Behaviors Calling Out,Facial Grimacing, Guarding M4 OT- IP ADL's Start: 10/28/22 17:48 Freq: Status: Active Protocol: Document 10/28/22 13:54 [facility] (Rec: 10/28/22 18:07 [facility] [id number]) OT [id number] Comments OT Self-Feeding Comments At this time per nursing pt use of hand to eat. OT ADL-Grooming General Evaluation Grooming Ability Maximum Assistance Comments OT Grooming Comments MAXA to help comb her hair . Pt able to wash her face after set-up of wash cloth. OT ADL-Oral Care Comments Oral Care Comments Not performed. OT ADL-Dressing General Eval Lower Body Dressing Ability Total Assistance Areas Needing Assistance Socks OT ADL-Toileting General Evaluation Toileting Ability Total Assistance Comments OT Toileting Comments Thompson in place OT ADL-Bathing Bathing Type Bathing Type Sponge Bath Comments OT Bathing Comments Sponge bath more appropriate at this time M5 OT- IP IADL's Start: 10/28/22 17:48 Freq: Status: Active Protocol: Document 10/28/22 13:54 [facility] (Rec: 10/28/22 18:07 [facility] [id number]) OT-Instrumental Activities of Daily Living Deficits IADL Deficits Identified Deficits Home Safety Awareness Awareness of Need for Assistance at Home Decreased Awareness Ability to Problem Solve Emergency Unable to Problem Solve Situations Medication Management Medication Management Caregiver Administers Money Management Money Management Caregiver Provides Assistance Meal Preparation Meal Preparation Caregiver Provides Assist Clinical Research Nurse Clinical Research Nurse Caregiver Provides Assist M6 OT- IP Functional Cognition Start: 10/28/22 17:48 Freq: Status: Active Protocol: Document 10/28/22 13:54 [facility] (Rec: 10/28/22 18:07 [facility] [id number]) Cognitive Factors Limiting Selfcare Function Cognitive Ability Level of Alertness Alert Patient Orientation Name Cognitive Comments Cognitive Assessment Comments Pt just mainly orientated to her name. Pt able to follow one step simple commands. M7 OT- IP Mobility and Balance Start: 10/28/22 17:48 Freq: Status: Active Protocol: Document 10/28/22 13:54 [facility] (Rec: 10/28/22 18:07 [facility] [id number]) OT- Bed Mobility Assessment Supine to Sit Supine to Sit Assist Minimal Assistance Sit to Supine Sit to Supine Assist Maximum Assistance Scooting Scooting to Edge of Bed Minimal Assistance OT-Transfer Assessment Comments Mobility Comments NATHALY with HOB up to help get her trunk upright but able to move her legs on her own. Attempted to stand with FWW and without FWW with nursing aid to assist and pt not able to follow commands for keeping her weight off her RLE and tending to resist the movements. OT- Balance Assessment Sitting Balance and Reactions Static Sitting Balance Ability Good Dynamic Sitting Balance Ability Fair M8 OT- IP Objective Assessments Start: 10/28/22 17:48 Freq: Status: Active Protocol: Document 10/28/22 13:54 [facility] (Rec: 10/28/22 18:07 [facility] [id number]) OT Strength Comments Strength Comments Not able to formally assess due to pt's difficulty to follow direction, at least 3-/ 5. M9 OT- IP Assessment and Plan Start: 10/28/22 17:48 Freq: Status: Active Protocol: Document 10/28/22 13:54 [facility] (Rec: 10/28/22 18:07 [facility] [id number]) OT Summary Assessment and Plan Potential Rehabilitation Potential Fair Analytic Complexity at Evaluation Moderate Summary OT Impairments Pain,Strength,Balance, Functional Cognition, Functional Mobility,Grooming, Dressing,Toileting,Bathing, Toilet Transfers,Shower Transfers,Activity Tolerance Progress Towards Goals Slow Progress due to Pain,Slow Progress due to Medical Issues,Slow Progress due to Activity Tolerance,Slow Progress due to Cognition Assessment Summary Pt MOD complexity and main barrier is pain and decreased ability to follow commands due to her dementia. Pt is cooperative but not able to follow commands and needing KAIBAB assist, item of hair brush to be placed in her hair so able to initiate brushing her hair. Pending on her ability to follow commands may benefit from skilled rehab as pt was cooperative today or will need / skilled caregivers and equipment needs. Goals Grooming Goal Minimal Assistance Dressing Goal Moderate Assistance Toileting Goal Moderate Assistance Bathing Goal Moderate Assistance Toilet Transfer Goal Moderate Assistance Shower Transfer Goal Moderate Assistance Days to Meet Goals 30 Frequency of Treatment Frequency Of Treatment Once a Day Treatment Plan OT Treatment Plan ADL Training,Functional Cognition Training,Functional Mobility,Patient/Family Education,Discharge Planning Discharge Recommendations OT Discharge Recommendations SNF Rehab Transportation Needs at Discharge Wheelchair/Cabulance,Stretcher /Ambulance
[2022-10-28 20:00] VITALS: BP 119/65; PULSE 86; RESP 16; TEMP 37.4; O2SAT 93
[2022-10-28] MEDS: ATORVASTATIN 20 MG TABLET PO (20:49)
[2022-10-28] MEDS: QUETIAPINE 100 MG TABLET PO (20:49)
[2022-10-28 21:51] VITALS: PULSE 104; O2SAT 93
[2022-10-29] MEDS: OXYCODONE IR 5 MG TABLET PO (06:34)
[2022-10-29 07:00] VITALS: O2SAT 98
[2022-10-29 08:04] VITALS: BP 114/63; PULSE 88; RESP 17; TEMP 36.6; O2SAT 96
[2022-10-29] MEDS: CLOPIDOGREL 75 MG TABLET PO (10:53)
[2022-10-29] MEDS: QUETIAPINE 25 MG TABLET PO (10:53)
[2022-10-29] MEDS: PRENATAL VIT,CALC/IRON/FOLIC 1 TABLET 1 TAB PO (10:53)
[2022-10-29] MEDS: DOCUSATE 100 MG CAPSULE PO (10:53)
[2022-10-29] MEDS: ASPIRIN EC 81 MG TABLET PO (10:53)
[2022-10-29] MEDS: CITALOPRAM 10 MG TABLET PO (10:54)
[2022-10-29] MEDS: levETIRAcetam 250 MG TABLET 500 MG PO (10:54)
[2022-10-29 10:55] VITALS: BP 114/63; PULSE 88
[2022-10-29] MEDS: lisinopriL 20 MG TABLET 40 MG PO (10:55)
[2022-10-29] MEDS: CYANOCOBALAMIN (VITAMIN B-12) 500 MCG TABLET PO (10:55)
[2022-10-29] MEDS: ENOXAPARIN 40 MG/0.4 ML SYRINGE SUBCUT (10:57)
--- NOTE | 2022-10-29 11:05 | P.DS_ITS ---
History of Present Illness History of Present Illness Chief complaint: r hip pain Narrative: 87-year-old [place] female well known to me who apparently had a fall night prior to admission.? She was able to get up and move some and went to bed.? She lives with her daughter and requires a walker for ambulation.? However when she woke up this morning she was in much more pain really unable to ambulate or even bear weight.? She was transported to [facility] Department where she was evaluated and eventually after multiple imaging processes found to have a pelvic fracture on the right side as a source of her symptoms and disability Patient with longstanding dementia as well as being relatively frail, and known osteoporosis status post other fractures Discharge Providers Provider Date of admission: 10/26/22 11:37 Discharge Date: 10/29/22 Primary care physician: Brain Gomez MD Consults: 10/26/22 12:32 Consult to Discharge Planning Routine Comment: SNF placement Consult to Occupational Therapy Evaluate & Treat Comment: Physician Instructions: Evaluate and treat Consult to Physical Therapy Evaluate & Treat Comment: Physician Instructions: Evaluate and Treat Consult to Physician Routine Comment: Consulting Provider: Sammi Nelson Reason for consultation: pelvic fracture Has provider been notified: Yes 10/26/22 14:09 Consult to Dietitian, Adult Routine Comment: Reason For Exam: scored at high risk Discharge provider: Ari Briscoe MD Summary Hospital Course Discharge Diagnosis: Right superior pelvic rami fracture and right acetabular fracture Indwelling Thompson catheter Dementia History of constipation new line hypertension new line severe protein calorie nutrition Hypertension Severe protein calorie malnutrition Hospital Course: Right superior pelvic rami fracture and right acetabular fracture. Patient was admitted and Dr. Sammi Nelson was consulted. She felt after review that this should be managed conservatively. No surgery was required. Patient actually had pretty good pain control. Expect 4-6 weeks before feeling and therapy will be prescribed by Dr. Nelson. No other changes. Patient was stable. Will be followed. Indwelling Thompson catheter. Patient had Thompson placed secondary to her inability to mobilize. Will be continued until she can mobilize enough to be more functional. Can be discontinued at [facility] when desired. Dementia. Severe. Patient has had issues during her admission with behavioral control issues. Her quetiapine was increased at night and this much improved. Continued her usual dose in the morning. She also was using lorazepam. Had been at home. But was requiring IV Ativan until 48 hours prior to discharge when it was noted that the quetiapine changes were making a difference. She otherwise has been stable. Patient with end-stage dementia. And do not expect things to improve or change. Only progression. At some point question on long- term medications will need to be addressed but at this point will continue usual meds History of constipation. Patient had bowel movement prior to discharge usual med seem to be working for her. Severe protein malnutrition. Impacting many things in her recovery and care. Makes her high risk for surgical complications and for other medical issues. [place] to be secondary to her dementia. An only will probably worsen over time. Maybe improved with evaluation at correction. Will see how things go. We will follow. Hypertension. Stable throughout course usual medications will be continued. History of CVA stable throughout course continue Plavix. History of seizure disorder. On levetiracetam and has been stable. No change in dose Status at Discharge Cognitive/behavioral status at discharge: at baseline, confused Functional status at discharge: bed bound Overall status at discharge: patient is progressing back to baseline Exam Vital Signs (past 8 hours): - 10/29/22 08:04 10/29/22 07:00 10/29/22 10:55 Temperature 97.8 F Pulse Rate 88 88 Respiratory Rate 17 Blood Pressure 114/63 114/63 Pulse Oximetry 96 98 Oxygen Delivery Method Room Air Oxygen Flow Rate 0 Fraction of Inspired Oxygen 21 SaO2/FiO2 Ratio 442 Oxygen Delivery Method Room Air Oxygen Flow Rate 0 Narrative Exam Narrative: Alert elderly female in no acute distress lying in bed. Lungs are clear. Heart regular rate and rhythm. Nonfocal neurologic exam. Confused at baseline. Objective Labs 10/26/22 13:40 10/26/22 13:40 [facility] Medical History (Updated 10/26/22 @ 19:58 by Sammi Nelson MD) Abdominal pain Anxiety (09/16/13) Dementia Diverticulosis of large intestine Essential hypertension (02/24/11) History of adenomatous polyp of colon Hypertension Intertrochanteric fracture of right femur Irritable bowel syndrome with diarrhea (09/13/16) Irritable bowel syndrome without diarrhea (05/28/15) Low back pain Lung nodule seen on imaging study (10/03/12) Mixed hyperlipidemia (02/24/11) Multiple fractures of rib involving four or more ribs Open wound of genital labia Osteoporosis (02/24/11) Seizure Surgical History (Updated 10/26/22 @ 11:48 by Ari Goodwin MD) H/O colonoscopy History of appendectomy History of foot surgery History of right hip replacement Hx of appendectomy Social History marital status: number of children: 1 household members: children lives independently: Yes caregiver/support person: Yes (Step daughter) housing: apartment pets and animals: No education level: high school occupational status: other 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 [employer] leisure activities: music, reading and other Smoking Status: Never smoker Tobacco: How many years used: 0 alcohol intake: current substance use type: does not use Discharge Assessment & Plan Assessment and Plan Assessment: Pelvic fracture. Plan of Treatment: Discharge to rehab services 50 minutes spent with patient nurses social service orders and dictation Discharge Plan Discharge Plan Patient Disposition: SNF Transfer to: [facility] Under care of provider: Facility provider Consult as needed: Dental, Hearing, Mental health, Podiatry and Vision Discharge orders & Medications Prescriptions: New quetiapine 25 mg Tablet 25 mg PO DAILY Qty: 30 0RF quetiapine [Seroquel] 100 mg Tablet 100 mg PO BEDTIME Qty: 30 0RF oxycodone 5 mg Tablet 5 mg PO Q3H PRN (Reason: Pain, Moderate (4-6)) Qty: 30 0RF Continued levetiracetam 100 mg/mL solution 500 mg PO BID Qty: 473 3RF citalopram 10 mg tablet 10 mg PO DAILY Qty: 30 12RF clopidogrel 75 mg tablet 75 mg PO DAILY Qty: 90 3RF lisinopril 40 mg tablet 40 mg PO DAILY Qty: 90 1RF atorvastatin [Lipitor] 20 mg tablet 20 mg PO BEDTIME Qty: 90 0RF lorazepam 1 mg tablet 1 mg PO TID PRN (Reason: agitation) Qty: 30 0RF aspirin 81 mg tablet,delayed release (DR/EC) 81 mg PO DAILY magnesium hydroxide [Milk of Magnesia] 400 mg/5 mL suspension 2,400 mg PO DAILY PRN (Reason: takes this way at home) docusate sodium 100 mg capsule 100 mg PO DAILY 19 29 mg iron- 1 mg tablet,chewable 1 tab PO DAILY Vitamin B12 500 mg 1 tab PO DAILY tobramycin-dexamethasone 0.3-0.1 % Drops,Suspension 2 drp OPHTHALMIC (EYE) Q4HR acetaminophen 325 mg tablet 500 mg PO TID PRN (Reason: Pain (Scale Score 1-3)) Discontinued quetiapine 25 mg Tablet 25 mg PO BID quetiapine 50 mg Tablet 50 mg PO 1600 Medication counseling provided by Pharmacist: Yes Follow up/Referrals: Brain Gomez MD [Primary Care Provider] - 2 Weeks Discharge Health Status Multidrug resistant organism: No MDRO Precautions: Virgie Diet/Activity/Treatments Diet: Diet as Tolerated Liquid consistency: Normal/Thin Food texture: Regular Catheter: 2-way Thompson Catheter comment: Remove when stable Skin/Wound/Dressing Care Report to your healthcare provider any signs of infection, such as:: chills, fever, increased pain, unusual drainage and unusual redness Special Rehabilitation Services Reason for rehabilitation: Recovery r/t decondition Rehab type: Physical therapy, Occupational therapy and Speech therapy Visit Report/Discharge Packet Stand Alone Forms: Patient Portal/API Discharge Data Primary Care Provider: Brain Gomez Quality VTE Deep Vein Thrombosis/Pulmonary Embolism Present on Admission: No
--- NOTE | 2022-10-29 13:20 | PC.NURSE ---
Pt readied for transfer to [facility]. Report given to [facility] receiver to [facility] by [facility] staff.
--- NOTE | 2022-10-29 14:54 | CM.DPNOTE ---
DC Note Discharge to [facility] today, orders completed and signed by Dr Briscoe. w/c p/u arranged for 1300 RN Micah updated w/plan, transport time and report number - James RN is Lotus Weiner [phone] No COVID PCR required Brother Aleksandar and step daughter Ewa aware and agreeable to plan, both at the hospital today Plan: Discharge to [facility] via w/c JW
== END 2022-10-29 13:15 | DRG 535 ==
LOC: ED 07:00 → AC 11:38
PROVIDERS: Admitting Provider Internal Medicine; Emergency Provider Emergency Medicine; PCP Internal Medicine; Referring Provider Emergency Medicine; Visit Provider Internal Medicine
DX: S32.511A Fracture of superior rim of right pubis, initial encounter for closed fracture (principal); E43 Unspecified severe protein-calorie malnutrition; S32.401A Unspecified fracture of right acetabulum, initial encounter for closed fracture; Z68.1 Body mass index [BMI] 19.9 or less, adult; F03.C18 Unspecified dementia, severe, with other behavioral disturbance; I10 Essential (primary) hypertension; K58.1 Irritable bowel syndrome with constipation; G40.909 Epilepsy, unspecified, not intractable, without status epilepticus; W19.XXXA Unspecified fall, initial encounter; Z86.73 Personal history of transient ischemic attack (TIA), and cerebral infarction without residual deficits; Z66 Do not resuscitate; Z20.822 Contact with and (suspected) exposure to COVID-19
CPT/HCPCS: 36415; 72100; 72192; 73502; 73620; 80053; 85025; 85610; 87635; 94760; 97162; 97166; 97530; 99222; 99232; 99284; 99291; C9803; J1650; J2060